=== PATIENT | male | born 1950 ===

== ENCOUNTER 2017-11-25 13:17 | Day surgery (SDC) | payer MEDICARE ==
[2017-11-25] MEDS ORDERED: Sodium Chloride 0.9% 1,000 ML ONE ×3 (13:43→15:25)
[2017-11-25] MEDS ORDERED: Sodium Chloride 0.9% 1,000 ML IV ONE ×5 (13:59→16:10)
[2017-11-25 14:00] LABS: BASO # 0.1 K/uL (0.0-0.2); BASO % 0.5 % (0.0-2.0); HEMOGLOBIN 13.8 g/dL (12.0-18.0); LYMPH # 0.7 K/uL (1.0-4.3); LYMPH % 4.9 % (20.0-40.0); MEAN CORPUSCULAR HGB CONC 33.3 g/dL (33.0-37.0); MONO % 7.4 % (0.0-10.0); NEUT # 11.9 K/uL (1.8-7.0); NEUT % 87.2 % (50.0-75.0); PLATELET COUNT 174 K/uL (130-400); RBC 4.76 Mil/uL (4.40-5.90); RED CELL DISTRIBUTION WIDTH 13.6 % (11.5-14.5); WHITE BLOOD COUNT 13.6 K/uL (4.8-10.8)
[2017-11-25 14:09] LABS: VENOUS BLOOD GAS PCO2 48 mmHg (40-60); VENOUS BLOOD GAS PO2 23 mm/Hg (30-55); VENOUS BLOOD PH 7.36 (7.32-7.43)
[2017-11-25 14:32] LABS: LYMPHOCYTE 5 % (20-40); MONOCYTE 6 % (0-10); NEUTROPHIL 89 % (50-75); PLATELET ESTIMATE NORMAL (NORMAL); TOTAL CELLS COUNTED 100
[2017-11-25 14:33] LABS: ANISOCYTOSIS SLIGHT; TOXIC GRANULATION PRESENT
--- NOTE | 2017-11-25 14:36 | C.PDOC ---
History Of Present Illness 66 year old male presents to ED complaining of feeling very weak since last night. Patient reports he feels his sugar is high and states he has not seen a doctor in many years. Patient also states he occasionally takes his friends diabetic medication. When inquiring how he knows he is a diabetic the patient answers by saying he urinates a lot. Denies any pain, falling. Chief Complaint (Nursing): Medical Clearance History Per: Patient History/Exam Limitations: no limitations Onset/Duration Of Symptoms: Days Current Symptoms Are (Timing): Still Present Recent travel outside of the [place] States: No Past Medical History Reviewed: Historical Data, Nursing Documentation, Vital Signs Vital Signs: Last Vital Signs Temp 97.6 F 11/25/17 16:12 Pulse 52 L 11/25/17 16:12 Resp 27 H 11/25/17 15:07 BP 92/50 L 11/25/17 16:12 Pulse Ox 96 11/25/17 18:32 Surgical History: No Surg Hx Family History: States: No Known Family Hx - Social History Hx Alcohol Use: No Hx Substance Use: No - Immunization History Hx Tetanus Toxoid Vaccination: No Hx Influenza Vaccination: No Hx Pneumococcal Vaccination: No Review Of Systems Except As Marked, All Systems Reviewed And Found Negative. Constitutional: Positive for: Weakness, Other (feels his sugar is high) Eyes: Negative for: Pain Cardiovascular: Negative for: Chest Pain Respiratory: Negative for: Cough Gastrointestinal: Negative for: Abdominal Pain Musculoskeletal: Negative for: Neck Pain, Arm Pain Neurological: Negative for: Numbness Physical Exam - Physical Exam Appears: Non-toxic, No Acute Distress Skin: Warm, Dry Head: Atraumatic, Normacephalic Eye(s): bilateral: Normal Inspection, PERRL, EOMI Oral Mucosa: Dry Neck: Supple Chest: Symmetrical Cardiovascular: Rhythm Regular, Other (mitral regurgitation) Respiratory: Normal Breath Sounds Gastrointestinal/Abdominal: Normal Exam, Soft, No Tenderness Extremity: Normal ROM Neurological/Psych: Oriented x3 ED Course And Treatment - Laboratory Results Result Diagrams: 11/25/17 13:54 11/25/17 13:54 ECG: Interpreted By Me, Viewed By Me ECG Rhythm: Sinus Bradycardia (54), ST/T Changes (23/80. ) Interpretation Of ECG: EKG sinus bradycardia 54 BPM, first degree AB block st elevation 23/80. Hyperacute T waves in v2 v3 v4. Rate From EC (bpm) O2 Sat by Pulse Oximetry: 96 (RA) Pulse Ox Interpretation: Normal Progress Note: EKG done 14:07. Dr. Dumont called immediatly with EKG sent to him. Dr. Dumont states it is not a code heart pending stat echo and troponin. Troponin came back at 36. Echo not available. Dr. Dumont noted requires heparin bolus and infusion with laboratory animal care veterinarian team notification. Dr. Mccollum notified for admission and hospitalist program director notified about case. Critical care time 90 minutes. Medical Decision Making Medical Decision Making: Impression: Weakness Plan: * EKG * labs * Echo Disposition - Disposition Disposition: HOSPITALIZED Disposition Time: 14:07 Condition: CRITICAL - Clinical Impression Clinical Impression: NSTEMI (non-ST elevated myocardial infarction), Hypotension, Renal failure, Hyperglycemia - Scribe Statement The provider has reviewed the documentation as recorded by the Flaco Arnolded Provider Attestation: All medical record entries made by the Flaco were at my direction and personally dictated by me. I have reviewed the chart and agree that the record accurately reflects my personal performance of the history, physical exam, medical decision making, and the department course for this patient. I have also personally directed, reviewed, and agree with the discharge instructions and disposition.
[2017-11-25 14:43] LABS: INR 1.2; PROTHROMBIN TIME 13.1 SECONDS (9.7-12.2)
--- NOTE | 2017-11-25 15:00 | RAD ---
Chest x-ray single frontal view History: Infiltrate. Comparison: None available. Findings: Biapical pleural thickening with upper lobe granulomatous changes. Mild venous congestion. Right hilar and infrahilar consolidative changes. Top normal heart size. Degenerative changes in the spine and shoulders. Impression: Biapical pleural thickening with upper lobe granulomatous changes. Mild venous congestion. Right hilar and infrahilar consolidative changes.
[2017-11-25 15:07] VITALS: RESP 27
[2017-11-25] MEDS ORDERED: Azithromycin 500 MG in Sodium Chloride 0.9% 250 ML IVPB STA (15:09)
[2017-11-25 15:13] LABS: ALB/GLOB RATIO 1.5 (1.0-2.1); CALCIUM 9.4 mg/dl (8.6-10.4)
[2017-11-25] MEDS ORDERED: (Novolin R) Insulin Human Regular 100 units/ml vial IV STA (15:14)
[2017-11-25 15:19] LABS: TROPONIN I 36.4 ng/mL (0.00-0.120)
[2017-11-25] MEDS ORDERED: (Novolin R) Insulin Human Regular 100 units/ml vial ONE (15:23)
[2017-11-25] MEDS ORDERED: Heparin25000 units/250ml 1/2NS 25,000 UNITS/250 ML BAG IV STA (15:46)
[2017-11-25 16:13] VITALS: BP 92/50; PULSE 52; TEMP 97.6
[2017-11-25] MEDS ORDERED: Lidocaine 2% MPF (5 ml) Inj ONE ×2 (16:13→17:26)
[2017-11-25 16:21] LABS: SQUAMOUS EPITHIAL 1 /hpf (0-5); URINE BACTERIA OCC (<OCC); URINE BILIRUBIN NEGATIVE (NEGATIVE); URINE BLOOD NEGATIVE (NEGATIVE); URINE CLARITY Hazy (Clear); URINE COLOR Amber (YELLOW); URINE GLUCOSE (UA) 3+ mg/dL (Normal); URINE LEUKOCYTE ESTERASE NEG Leu/uL (Negative); URINE PROTEIN 2+ mg/dL (NEGATIVE)
--- NOTE | 2017-11-25 16:40 | CP.PCM.PN ---
<Leah Doe DO - Last Filed: 11/25/17 16:29> Subjective - Date & Time of Evaluation Date of Evaluation: 11/25/17 Time of Evaluation: 16:29 - Subjective Subjective: House Doctor Code Heart Note: Patient is a 66 year old male with PMHx of hyperglycemia who presents to the ED with complaints of nausea and feeling unwell. Patient reports these symptoms started yesterday evening. Patient denies chest pain currently or yesterday evening. Patient reports feeling that his hands and legs were weak. Code heart was called with ST elevations in II, III, AVF in the ED and cath team activated. Patient with troponin 36, WBC 13, lactate 2.9, creatinine 2.3. Patient given aspirin 325mg, 3 L IV fluid bolus, heparin bolus and drip started. Chest xray done in ER shows possible right hilar consolidation and patient given ceftriaxone and zithromax. Cardiac exam with possible friction rub and extra heart sound. Heart rate in 50s in ER. 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; denies tobacco ever, denies alcohol; lives alone- rents room in apartment; family lives in [place] but he does not speak with them, has friend/girlfriend Rosi- does not have phone number for her Allergies: denies Objective - Vital Signs/Intake and Output Vital Signs (last 24 hours): Temp Pulse Resp BP Pulse Ox 97.6 F 52 L 27 H 92/50 L 99 11/25/17 16:12 11/25/17 16:12 11/25/17 15:07 11/25/17 16:12 11/25/17 16:12 - Medications Medications: Current Medications Ceftriaxone Sodium 1 gm/ (Sodium Chloride) 100 mls @ 100 mls/hr IVPB DAILY RIKI PRN Reason: Protocol Last Admin: 11/25/17 14:49 Dose: 100 mls/hr Sodium Chloride (Sodium Chloride 0.9%) 1,000 mls @ 250 mls/hr IV .Q4H ONE Stop: 11/25/17 19:19 Last Admin: 11/25/17 15:25 Dose: 250 mls/hr Sodium Chloride (Sodium Chloride 0.9%) 1,000 mls @ 1,000 mls/hr IV .Q1H ONE Stop: 11/25/17 17:09 Last Admin: 11/25/17 16:10 Dose: 1,000 mls/hr - Labs Labs: 11/25/17 13:54 11/25/17 13:54 PT 13.1 SECONDS (9.7-12.2) H 11/25/17 14:28 INR 1.2 11/25/17 14:28 APTT 31 SECONDS (21-34) 11/25/17 14:28 <Seda Espinoza V - Last Filed: 11/25/17 18:00> Objective - Vital Signs/Intake and Output Vital Signs (last 24 hours): Temp Pulse Resp BP Pulse Ox 97.6 F 52 L 27 H 92/50 L 99 11/25/17 16:12 11/25/17 16:12 11/25/17 15:07 11/25/17 16:12 11/25/17 16:12 - Medications Medications: Current Medications Ceftriaxone Sodium 1 gm/ (Sodium Chloride) 100 mls @ 100 mls/hr IVPB DAILY RIKI PRN Reason: Protocol Last Admin: 11/25/17 14:49 Dose: 100 mls/hr Sodium Chloride (Sodium Chloride 0.9%) 1,000 mls @ 250 mls/hr IV .Q4H ONE Stop: 11/25/17 19:19 Last Admin: 11/25/17 15:25 Dose: 250 mls/hr - Labs Labs: 11/25/17 13:54 11/25/17 13:54 PT 13.1 SECONDS (9.7-12.2) H 11/25/17 14:28 INR 1.2 11/25/17 14:28 APTT 31 SECONDS (21-34) 11/25/17 14:28 Attending/Attestation - Attestation Notes (Text): Hospitalist responded to code heart as part of the code heart team. Patient reports he hasnt been feeling well. He reports he has "diabetes" because of a doctor in [place] had told him in the distant past. He reports he has been borrowing medications from a friend. Patient also admits to cocaine use, snorts, 3 days ago. Patient noted to be hypotensive, has been given 3 Liters boluses, about to receive fourth bolus. Patient has received dose of aspirin, heparin, and brilinta per code heart protocol. Patient reports family hx of heart attack father age 53. patient reports family in [place] but cant recall phone number and reports he has lady friend, Timderrell who he implies has romantic relationshop with.
[2017-11-25] MEDS ORDERED: Nitroglycerin 50mg in D5W 50 MG/250 ML BOTTLE IV ONE (17:06)
[2017-11-25] MEDS ORDERED: Iodixanol 320 MG/ML 200 ML BOTTLE IV ONE (17:12)
[2017-11-25 17:25] LABS: ARTERIAL BLOOD GAS HCO3 20.9 mmol/L (21-28); ARTERIAL BLOOD GAS HEMOGLOBIN 11.7 g/dL (11.7-17.4); ARTERIAL BLOOD GAS O2 SAT 96.5 % (95-98); ARTERIAL BLOOD GAS PCO2 35 mm/Hg (35-45); ARTERIAL BLOOD GAS PH 7.36 (7.35-7.45); ARTERIAL BLOOD GAS PO2 73 mm/Hg (80-100); ARTERIAL BLOOD GAS TCO2 20.9 mmol/L (22-28)
[2017-11-25] MEDS ORDERED: Midazolam 2 MG/2 ML VIAL ONE ×2 (17:27→17:32)
[2017-11-25 17:29] LABS: VENOUS BLOOD GAS BASE EXCESS -5.5 mmol/L (0.0-2.0); VENOUS BLOOD GAS PCO2 42 mmHg (40-60); VENOUS BLOOD GAS PO2 29 mm/Hg (30-55)
[2017-11-25] MEDS ORDERED: DOBUTamine 500mg/250ml D5W 500 MG/250 ML BAG ONE (18:13)
[2017-11-25 18:25] VITALS: O2SAT 96
--- NOTE | 2017-11-27 05:56 | CARDCATH ---
Copied To: Ector Dumont MD Attending MD: Ector Dumont MD PROCEDURE DATE: 11/25/2017 INDICATION: Mr. Keen is a 66-year-old male with past medical history significant for diabetes mellitus that was treated with medications borrowed from his friend, not followed by the primary care physician and history of intermittent cocaine use who presented with not feeling himself. Symptoms started a day prior to presentation. Initial EKG showed inferior wall had Q-waves with ST changes suggestive of recent inferior wall WV. Since the patient presented 24 hours after his presentation, he was not emergently brought to the [facility] sinking until he started to decompensate and showed signs of early shock since his systolic was running in the 80s, and there were some hyperacute T-wave changes noted in the anterior leads. Therefore, he was brought to the [facility] sinking for further evaluation and treatment for acute WV and cardiogenic shock. PROCEDURES PERFORMED: 1. Complete heart cauterization with selective left and right coronary angiogram, attempted revascularization of old occluded right coronary artery with unsuccessful attempt, unable to restore the flow. 2. Successful placement of Impella CP device for hemodynamic support, 6-Albanian right femoral arterial access, 7-Albanian right femoral venous access, 13-Albanian right femoral arterial access with one Perclose device. TECHNIQUES OF PROCEDURE: After obtaining informed consent, the patient was brought emergently to the lab[facility] shaft sinking for evaluation of cardiogenic shock. Initially, the 6-Albanian right femoral arterial access and 7-Albanian right femoral venous access were obtained. LV gram was obtained which showed ejection fraction was 30% with inferior wall akinesis and severe hypokinesis and anteroapical akinesis. Left ventricular end-diastolic pressure was 17 mmHg. At this point, left coronary artery system angiogram was obtained which showed the left main was large-sized vessels bifurcating to LAD and circumflex. LAD had a proximal 99% high-grade stenosis extending into the first diagonal branch. Left circumflex is a large-sized vessel, runs in the AV groove, has proximal 80% stenosis bifurcating into two obtuse marginal branches. The patient had good distal site at the LAD for COREAS and good target site at the OM. Right coronary artery was proximal 100% occluded. At this point, a JR-4 guide was used to engage the right coronary system. Attempt was made to revascularize. The lesion was pre-dilated with a balloon. There was some flow noted. At this point, the lesion was stented, but there was very poor PIERRE 1 flow suggesting that the inferior wall was already infarcted completely. At this point, the right heart cath was done. Hemodynamics were noted. RA mean pressure was 22. PA sats were 54. Pulmonary capillary wedge pressure was 24. Cardiac output was 1.99 with a cardiac index of 1.15. Cardiac power output was less than 0.7. Darron was 1.2. At this point, left femoral arterial access was obtained. Femoral angiogram was done to secure access site. The access was dilated serially with 8-Albanian, 10-Albanian and 12-Albanian dilators and subsequently Impella sheath was placed. Impella was successfully implanted in the LV for hemodynamic support. IMPRESSION: Attempted revascularization of an occluded right coronary artery with more than 24-hour onset of myocardial infraction, unable to recanalize the flow with poor PIERRE 1 flow, high-grade left anterior descending and left circumflex disease, cardiogenic shock with low cardiac output and elevated running pressure, and successful placement of Impella. RECOMMENDATIONS: The patient is to transfer emergently to [place] for urgent/emergent CABG with COREAS to LAD and graft to the OM system. The patient is to continue on Impella system. Continue hemodynamics and maintain pressures. Ector Dumont MD
--- NOTE | 2017-11-27 23:48 | CARD ---
APPROVED REPORT Date of service: 11/25/2017 EKG Measurement Heart [id number] <Conclusion> Sinus bradycardia with 1st degree AV block Inferior infarct, possibly acute Anterolateral injury pattern ACUTE AZ / STEMI Abnormal ECG
== END 2017-11-25 16:18 | disposition short-term general hospital (02) ==
LOC: C.ER 13:17 → C.CATHLAB 13:17 → EDSTATUS 15:09 → C.9I 16:18 → C.ER 16:18 → C.9I 16:41 → UNDOADMIN 16:41 → UNDODISIN 11-26 01:00
PROVIDERS: ATTEND Internal Medicine Interventional Cardiology
DX: I21.3 ST elevation (STEMI) myocardial infarction of unspecified site (principal); R57.0 Cardiogenic shock; I25.10 Atherosclerotic heart disease of native coronary artery without angina pectoris; E11.65 Type 2 diabetes mellitus with hyperglycemia; E11.22 Type 2 diabetes mellitus with diabetic chronic kidney disease; I95.9 Hypotension, unspecified; F14.90 Cocaine use, unspecified, uncomplicated
CPT/HCPCS: 71045; 80053; 81001; 82009; 82803; 82948; 83880; 84484; 85025; 85347; 85610; 85730; 86850; 86900; 87040; 87086; 87149; 87205; 93005; 93453; 96361; 96365; 96367; 96375; 99152; 99153; 99285; C1714; C1725; C1760; C1769; C1789; C1874; C1887; C1893; C1894; C9606; J0456; J0696; J1250; J1644; J2250; J2405; J3010; J7030; J7050; Q9966

== ENCOUNTER 2018-01-05 19:42 | Inpatient (IN) | payer MEDICAID ==
--- NOTE | 2018-01-05 20:01 | C.PDOC ---
History Of Present Illness patient presents with 2-3 days of shortness of breath. Pt is s/p cabg about 10 days ago. No f/c/n/v. Denies any chest pain. Is unsure of any medication that he takes. Speaking in 3-4 word sentences. Time Seen by Provider: 01/05/18 19:55 Chief Complaint (Nursing): Respiratory Distress History Per: Patient History/Exam Limitations: no limitations Onset/Duration Of Symptoms: Days Current Symptoms Are (Timing): Still Present Initiating Event: Other Quality: denies: Tightness Exacerbating Factor(s): Exertion, Laying Flat Current Respiratory Medications: See Home Med List Severity: Severe Pain Scale Rating Of: 8 Associated Symptoms: denies: Fever, Chills, Dizziness Reports Recently: Seen In ED, Treated By A Physician, Hospitalized Recent travel outside of the [place]: No Additional History Per: Patient Past Medical History Reviewed: Historical Data, Nursing Documentation, Vital Signs Family History: States: No Known Family Hx - Social History Hx Alcohol Use: No Hx Substance Use: No - Immunization History Hx Tetanus Toxoid Vaccination: No Hx Influenza Vaccination: No Hx Pneumococcal Vaccination: No Review Of Systems Constitutional: Negative for: Fever, Chills Eyes: Negative for: Redness ENT: Negative for: Throat Pain Cardiovascular: Negative for: Chest Pain Respiratory: Positive for: Shortness of Breath, SOB with Excertion, Wheezing (mild) Gastrointestinal: Negative for: Nausea, Vomiting, Abdominal Pain Genitourinary: Negative for: Dysuria Musculoskeletal: Negative for: Back Pain Skin: Positive for: Lesions (r leg) Neurological: Negative for: Weakness Psych: Negative for: Anxiety Physical Exam - Physical Exam Appears: In Acute Distress Skin: Warm, Dry Head: Normacephalic Eye(s): bilateral: Normal Inspection Oral Mucosa: Moist Lips: Normal Appearing Neck: Trachea Midline, Supple Chest: Symmetrical, Other (healed cabg scar) Cardiovascular: Rhythm Regular Respiratory: Decreased Breath Sounds, Rales, No Rhonchi, Wheezing (few) Gastrointestinal/Abdominal: Soft, No Tenderness, No Distention, No Guarding, No Rebound Back: No CVA Tenderness Extremity: Pedal Edema, No Deformity, Other (4 cm open healing wound from vein graft, also some redness on the medial aspect r leg from the vein ) Extremity: Bilateral: Atraumatic, Normal ROM Pulses: Left Dorsalis Pedis: Normal, Right Dorsalis Pedis: Normal Neurological/Psych: Oriented x3, Normal Speech, Normal Cognition Gait: Steady ED Course And Treatment - Laboratory Results Result Diagrams: 01/05/18 20:09 01/05/18 20:09 ECG: Interpreted By Me, Viewed By Me ECG Rhythm: Sinus Bradycardia (46), Nonspecific Changes Pulse Ox Interpretation: Normal - Radiology CXR: Interpreted by Me, Viewed By Me CXR Interpretation: Yes: Other (cabg, acute pulm edema, b/l effuions). No: I nfiltrates, Fracture, Pnemothorax Progress Note: placed pt on bipap. spoke with dr clements. pt does not meet code heart criteria. 8:[address] billings, vamp throater, will come and see the pt in the ed Critical Care Time - Critical Care Note Total Time (in mins): 30 Documented critical care: time excludes all time spent performing seperately billable procedures. Disposition Discussed With Dr.: Kelechi Moore Comment: acceptd the pt on his service and took over the care t 9:03 PM Doctor Will See Patient In The: ED Counseled Patient/Family Regarding: Studies Performed, Diagnosis - Disposition Disposition: HOSPITALIZED Disposition Time: 20:01 Condition: CRITICAL Forms: [facility] ([place] Island[place]) - POA Present On Arrival: Poor Glycemic Control - Clinical Impression Clinical Impression: NSTEMI (non-ST elevated myocardial infarction), Hypotension, Acute pulmonary edema Decision To Admit - Pt Status Changed To: Hospital Disposition Of: Inpatient - Admit Certification Admit to Inpatient:: After my assessment, the patient will require hospitalization for at least two midnights. This is because of the severity of symptoms shown, intensity of services needed, and/or the medical risk in this patient being treated as an outpatient. - InPatient: Physician Admission Certification: I certify that this patient requires 2 or more midnights of care for the following reason:: After my assessment, the patient will require hospitalization for at least two midnights. This is because of the severity of symptoms shown, intensity of services needed, and/or the medical risk in this patient being treated as an outpatient. - . Bed Request Type: ICU Admitting Physician: Kelechi Moore Patient Diagnosis: NSTEMI (non-ST elevated myocardial infarction), Hypotension, Acute pulmonary edema
[2018-01-05] MEDS ORDERED: Aspirin 325 mg EC Tablets PO STA (20:02)
[2018-01-05 20:03] VITALS: BMI 25.4
[2018-01-05 20:15] LABS: BASO # 0.1 K/uL (0.0-0.2); BASO % 0.5 % (0.0-2.0); EOS % 0.2 % (0.0-4.0); HEMOGLOBIN 12.4 g/dL (12.0-18.0); LYMPH # 0.9 K/uL (1.0-4.3); LYMPH % 6.6 % (20.0-40.0); MEAN CORPUSCULAR HEMOGLOBIN 28.7 pg (27.0-31.0); MEAN PLATELET VOLUME 8.8 fL (7.2-11.7); MONO # 0.7 K/uL (0.0-0.8); MONO % 5.3 % (0.0-10.0); NEUT % 87.4 % (50.0-75.0); NRBC % 0.1 % (0.0-2.0); RBC 4.34 Mil/uL (4.40-5.90); RED CELL DISTRIBUTION WIDTH 17.7 % (11.5-14.5); WHITE BLOOD COUNT 13.7 K/uL (4.8-10.8)
[2018-01-05 20:20] LABS: MEAN CELL VOLUME 92.6 fL (80.0-94.0); PLATELET COUNT 590 K/uL (130-400)
[2018-01-05 20:24] LABS: INR 1.5
[2018-01-05 20:37] LABS: ALB/GLOB RATIO 1.1 (1.0-2.1); ALBUMIN 4.3 g/dL (3.5-5.0); CALCIUM 9.2 mg/dl (8.6-10.4)
[2018-01-05 20:46] LABS: ABG ALLEN TEST POS; ARTERIAL BLOOD GAS HCO3 16.8 mmol/L (21-28); ARTERIAL BLOOD GAS O2 SAT 98.9 % (95-98); ARTERIAL BLOOD GAS PCO2 26 mm/Hg (35-45); ARTERIAL BLOOD GAS PH 7.33 (7.35-7.45); ARTERIAL BLOOD GAS PO2 123 mm/Hg (80-100); ARTERIAL BLOOD GAS TCO2 14.5 mmol/L (22-28)
[2018-01-05 20:47] LABS: TROPONIN I 3.95 ng/mL (0.00-0.120)
[2018-01-05] MEDS ORDERED: Piperacillin/Tazobact 3.375 gm 100 ML IVPB STA (20:49)
[2018-01-05] MEDS ORDERED: Piperacillin/Tazobact 3.375 gm 100 ML IVPB ONE (20:54)
[2018-01-05] MEDS ORDERED: Vancomycin 1 GM 1 GM/250 ML BAG IVPB SCH (21:00)
[2018-01-05 21:18] LABS: BANDS 1 % (0-2); LYMPHOCYTE 8 % (20-40); MONOCYTE 4 % (0-10); NEUTROPHIL 87 % (50-75); TOTAL CELLS COUNTED 100
[2018-01-05 21:19] LABS: ANISOCYTOSIS SLIGHT; PLATELET ESTIMATE INCREASED (NORMAL)
[2018-01-05 21:20] LABS: BURR CELLS SLIGHT; HYPOCHROMIC SLIGHT; POLYCHROMIC SLIGHT
--- NOTE | 2018-01-05 21:50 | CP.PCM.CON ---
History of Present Illness - History of Present Illness History of Present Illness: 67 y/o male with pmx of CAD s/p CABG, DM, was recently admitted to [facility] with NSTEMI s/p CABG at [facility]. Patient notes he remained intubated for 3 days and then was discharged. Patient does not know his surgeon. Patient does not know his medication. PAtient c/ SOB, (+)worsen upon exertion, denies any fevers, deneis any cough (+)dizziness PMHx:DM, CAD, polysubstance abuse FamHx:paternal h/o cad PSHx: denies Meds: does not remember Social history: denies smoking, (+)cocain Allergies: denies Review of Systems - Review of Systems All systems: reviewed and no additional remarkable complaints except - Constitutional Constitutional: As Per HPI Past Patient History - Tetanus Immunizations Tetanus Immunization: Unknown - Past Social History Smoking Status: Never Smoked - CARDIAC Hx Cardiac Disorders: Yes Other/Comment: open heart 12/2017 - PULMONARY Hx Respiratory Disorders: No - ENDOCRINE/METABOLIC Hx Diabetes Mellitus Type 2: Yes - PSYCHIATRIC Hx Substance Use: No - SURGICAL HISTORY Hx Surgeries: No - ANESTHESIA Hx Anesthesia: No Meds Allergies/Adverse Reactions: Allergies Allergy/AdvReac Type Severity Reaction Status Date / Time No Known Allergies Allergy Verified 01/05/18 20:19 - Medications Medications: Current Medications Vancomycin HCl (Vancomycin 1gm In Normal Saline Addvantage) 1 gm in 250 mls @ 166.667 mls/hr IVPB STAT RIKI; Protocol Physical Exam - Head Exam Head Exam: ATRAUMATIC, NORMAL INSPECTION, NORMOCEPHALIC - Eye Exam Pupil Exam: PERRL - Respiratory Exam Respiratory Exam: Clear to Auscultation Bilateral, NORMAL BREATHING PATTERN - Cardiovascular Exam Cardiovascular Exam: REGULAR RHYTHM, +S1, +S2, Systolic Murmur - GI/Abdominal Exam GI & Abdominal Exam: Normal Bowel Sounds, Soft. absent: Guarding, Rigid, Tenderness - Neurological Exam Neurological exam: Alert, Oriented x3 Results - Vital Signs Recent Vital Signs: Last Vital Signs Temp 98.6 F 01/05/18 19:56 Pulse 45 L 01/05/18 20:10 Resp 30 H 01/05/18 20:18 BP 123/49 L 01/05/18 19:56 Pulse Ox 96 01/05/18 20:18 - Labs Result Diagrams: 01/06/18 07:20 01/06/18 14:25 Labs: Laboratory Results - last 24 hr 01/05/18 01/05/18 01/05/18 20:09 20:09 20:09 WBC 13.7 H RBC 4.34 L Hgb 12.4 Hct 40.1 MCV 92.6 D MCH 28.7 MCHC 31.0 L RDW 17.7 H Plt Count 590 H D MPV 8.8 Neut % (Auto) 87.4 H Lymph % (Auto) 6.6 L [place] % (Auto) 5.3 Eos % (Auto) 0.2 Baso % (Auto) 0.5 Neut # (Auto) 12.0 H Lymph # (Auto) 0.9 L [place] # (Auto) 0.7 Eos # (Auto) 0.0 Baso # (Auto) 0.1 Neutrophils % (Manual) 87 H Band Neutrophils % 1 Lymphocytes % (Manual) 8 L Monocytes % (Manual) 4 Platelet Estimate Increased H Polychromasia Slight Hypochromasia (manual) Slight Anisocytosis (manual) Slight Shahrzad Cells Slight PT 16.0 H INR 1.5 APTT 31 Puncture Site pCO2 pO2 HCO3 ABG pH ABG Total CO2 ABG O2 Saturation ABG Base Excess Kade Test ABG Potassium A-a O2 Difference Respiratory Index Glucose Lactate FiO2 Inspiratory BiPAP Expiratory BiPAP Crit Value Called To Crit Value Called By Crit Value Read Back Blood Gas Notified Time Sodium 143 Potassium 5.5 H Chloride 104 Carbon Dioxide 15 L Anion Gap 30 H BUN 46 H Creatinine 1.9 H Est GFR ( Amer) 43 Est GFR (Non-Af Amer) 36 Random Glucose 156 H Calcium 9.2 Magnesium 1.9 Total Bilirubin 3.0 H AST 469 H D ALT 388 H D Alkaline Phosphatase 534 H D Troponin I 3.9500 H* NT-Pro-B Natriuret Pep 8390 H Total Protein 8.3 Albumin 4.3 Globulin 4.0 H Albumin/Globulin Ratio 1.1 Arterial Blood Potassium B-Hydroxybutyrate 0.24 01/05/18 20:40 WBC RBC Hgb Hct MCV MCH MCHC RDW Plt Count MPV Neut % (Auto) Lymph % (Auto) [place] % (Auto) Eos % (Auto) Baso % (Auto) Neut # (Auto) Lymph # (Auto) Seward # (Auto) Eos # (Auto) Baso # (Auto) Neutrophils % (Manual) Band Neutrophils % Lymphocytes % (Manual) Monocytes % (Manual) Platelet Estimate Polychromasia Hypochromasia (manual) Anisocytosis (manual) Shahrzad Cells PT INR APTT Puncture Site Lba pCO2 26 L pO2 123 H HCO3 16.8 L ABG pH 7.33 L ABG Total CO2 14.5 L ABG O2 Saturation 98.9 H ABG Base Excess -10.5 L Kade Test Pos ABG Potassium 4.1 A-a O2 Difference 130.0 Respiratory Index 1.1 Glucose 161 H Lactate 5.0 H* FiO2 40.0 Inspiratory BiPAP 18 Expiratory BiPAP 9 Crit Value Called To Dr anderson Crit Value Called By [facility] Crit Value Read Back Y Blood Gas Notified Time 2045 Sodium 139.0 Potassium Chloride 110.0 H Carbon Dioxide Anion Gap BUN Creatinine Est GFR ( Amer) Est GFR (Non-Af Amer) Random Glucose Calcium Magnesium Total Bilirubin AST ALT Alkaline Phosphatase Troponin I NT-Pro-B Natriuret Pep Total Protein Albumin Globulin Albumin/Globulin Ratio Arterial Blood Potassium 4.1 B-Hydroxybutyrate - EKG Data Rate: Bradycardia Assessment & Plan - Assessment and Plan (Free Text) Assessment: -DYspnea: etiology possible heart failure versus underlying infectious disease and/or polysubstance abuse, check CT chest, check procalcitnin, continue bi-pap -CAD: restart his heart medications -Trop(+): usually positive post on-pump CABG, please check EKG and echo for any new mall motion abnormality, cardiology input -?sepsis: leukocytosis possible post CABG, mirza culture, empiricaly on abx, check RUQ US -Severe systolic heart failure: obtain heart failure consult/cardiology consult Dr. Dumont, not a candidate for ACI 2nd heart failue -CKD:avoid nephrotoxic drugs, avoid acei, nephrology eval -Metabolic acidosis with partially compensated respratory alkalkosi: anion gap shoudl resolve with serial lactic trending down -npo -BGM q6hrs ISS -DVT ppx heparin SQ -PUD ppx protonix Mutlitple diagnostic test pending Prognosis guarded, Utox pending - Date & Time Date: 01/06/18 Time: 07:00
[2018-01-05] MEDS ORDERED: Vancomycin 1 GM 1 GM/250 ML BAG IVPB STA (22:14)
--- NOTE | 2018-01-06 03:24 | CP.PCM.HP ---
<Lynnette Pop - Last Filed: 01/06/18 04:57> History of Present Illness - History of Present Illness History of Present Illness: 67 yo M w/ PMHx of CAD w/ NSTEMI here 11/25 and s/p CABG @ [facility] within last month, DM2, admitted to ICU w/ 3 days of SOB. Patient does not remember which medications he takes, but says he is compliant. Pt denies chest pain, nausea, vomiting, diarrhea. PMD: none PMHx: CAD s/p CABG, DM2 PSHx: CABG Allergies: NKDA Meds: unknown Present on Admission - Present on Admission Any Indicators Present on Admission: No Review of Systems - Constitutional Constitutional: absent: Fever - EENT Eyes: absent: Change in Vision - Cardiovascular Cardiovascular: Dyspnea. absent: Chest Pain, Claudication, Palpitations - Respiratory Respiratory: Dyspnea. absent: Cough, Chest Congestion - Gastrointestinal Gastrointestinal: absent: Abdominal Pain, Diarrhea, Nausea, Vomiting - Genitourinary Genitourinary: absent: Difficulty Urinating Past Patient History - Tetanus Immunizations Tetanus Immunization: Unknown - Past Medical History & Family History Past Medical History?: Yes - Past Social History Smoking Status: Never Smoked - CARDIAC Hx Cardiac Disorders: Yes Other/Comment: open heart 12/2017 - PULMONARY Hx Respiratory Disorders: No - NEUROLOGICAL Hx Neurological Disorder: No - HEENT Hx HEENT Problems: No - RENAL Hx Chronic Kidney Disease: No - ENDOCRINE/METABOLIC Hx Endocrine Disorders: Yes Hx Diabetes Mellitus Type 2: Yes - HEMATOLOGICAL/ONCOLOGICAL Hx Blood Disorders: No - INTEGUMENTARY Hx Dermatological Problems: No - MUSCULOSKELETAL/RHEUMATOLOGICAL Hx Musculoskeletal Disorders: No - GASTROINTESTINAL Hx Gastrointestinal Disorders: No - GENITOURINARY/GYNECOLOGICAL Hx Genitourinary Disorders: No - PSYCHIATRIC Hx Psychophysiologic Disorder: No - SURGICAL HISTORY Hx Surgeries: Yes Hx Coronary Artery Bypass Graft: Yes - ANESTHESIA Hx Anesthesia: Yes Hx Anesthesia Reactions: No Hx Malignant Hyperthermia: No Has any member of the family had a problem w/ anesthesia?: No Meds Allergies/Adverse Reactions: Allergies Allergy/AdvReac Type Severity Reaction Status Date / Time No Known Allergies Allergy Verified 01/05/18 20:19 Physical Exam - Constitutional Appears: Non-toxic - Head Exam Head Exam: ATRAUMATIC, NORMAL INSPECTION, NORMOCEPHALIC - Eye Exam Eye Exam: EOMI, Normal appearance - ENT Exam ENT Exam: Normal Exam - Neck Exam Neck exam: Positive for: Normal Inspection - Respiratory Exam Respiratory Exam: Rales. absent: NORMAL BREATHING PATTERN (tachypneic) - Cardiovascular Exam Cardiovascular Exam: Bradycardia, REGULAR RHYTHM, +S1, +S2 - GI/Abdominal Exam GI & Abdominal Exam: Normal Bowel Sounds, Soft. absent: Distended, Tenderness - Extremities Exam Extremities exam: Positive for: pedal edema. Negative for: calf tenderness, normal inspection (RLE erythematous, warm to touch, popliteal lesion) - Psychiatric Exam Psychiatric exam: Normal Affect, Normal Mood - Skin Skin Exam: Dry, Intact, Normal Color, Warm Results - Vital Signs Recent Vital Signs: Last Vital Signs Temp 98.8 F 01/05/18 22:38 Pulse 43 L 01/05/18 23:40 Resp 22 01/05/18 22:38 BP 94/45 L 01/05/18 22:38 Pulse Ox 98 01/05/18 22:38 - Labs Result Diagrams: 01/05/18 20:09 01/05/18 20:09 Labs: Laboratory Results - last 24 hr 01/05/18 01/05/18 01/05/18 20:09 20:09 20:09 WBC 13.7 H RBC 4.34 L Hgb 12.4 Hct 40.1 MCV 92.6 D MCH 28.7 MCHC 31.0 L RDW 17.7 H Plt Count 590 H D MPV 8.8 Neut % (Auto) 87.4 H Lymph % (Auto) 6.6 L Nicholas % (Auto) 5.3 Eos % (Auto) 0.2 Baso % (Auto) 0.5 Neut # (Auto) 12.0 H Lymph # (Auto) 0.9 L Nicholas # (Auto) 0.7 Eos # (Auto) 0.0 Baso # (Auto) 0.1 Neutrophils % (Manual) 87 H Band Neutrophils % 1 Lymphocytes % (Manual) 8 L Monocytes % (Manual) 4 Platelet Estimate Increased H Polychromasia Slight Hypochromasia (manual) Slight Anisocytosis (manual) Slight Rueter Cells Slight PT 16.0 H INR 1.5 APTT 31 Puncture Site pCO2 pO2 HCO3 ABG pH ABG Total CO2 ABG O2 Saturation ABG Base Excess Kade Test ABG Potassium A-a O2 Difference Respiratory Index Glucose Lactate FiO2 Inspiratory BiPAP Expiratory BiPAP Crit Value Called To Crit Value Called By Crit Value Read Back Blood Gas Notified Time Sodium 143 Potassium 5.5 H Chloride 104 Carbon Dioxide 15 L Anion Gap 30 H BUN 46 H Creatinine 1.9 H Est GFR ( Amer) 43 Est GFR (Non-Af Amer) 36 Random Glucose 156 H Lactic Acid Calcium 9.2 Magnesium 1.9 Total Bilirubin 3.0 H AST 469 H D ALT 388 H D Alkaline Phosphatase 534 H D Troponin I 3.9500 H* NT-Pro-B Natriuret Pep 8390 H Total Protein 8.3 Albumin 4.3 Globulin 4.0 H Albumin/Globulin Ratio 1.1 Arterial Blood Potassium B-Hydroxybutyrate 0.24 01/05/18 01/05/18 20:40 22:42 WBC RBC Hgb Hct MCV MCH MCHC RDW Plt Count MPV Neut % (Auto) Lymph % (Auto) Nicholas % (Auto) Eos % (Auto) Baso % (Auto) Neut # (Auto) Lymph # (Auto) Nicholas # (Auto) Eos # (Auto) Baso # (Auto) Neutrophils % (Manual) Band Neutrophils % Lymphocytes % (Manual) Monocytes % (Manual) Platelet Estimate Polychromasia Hypochromasia (manual) Anisocytosis (manual) Shahrzad Cells PT INR APTT Puncture Site Lba pCO2 26 L pO2 123 H HCO3 16.8 L ABG pH 7.33 L ABG Total CO2 14.5 L ABG O2 Saturation 98.9 H ABG Base Excess -10.5 L Kade Test Pos ABG Potassium 4.1 A-a O2 Difference 130.0 Respiratory Index 1.1 Glucose 161 H Lactate 5.0 H* FiO2 40.0 Inspiratory BiPAP 18 Expiratory BiPAP 9 Crit Value Called To Dr anderson Crit Value Called By [facility] Crit Value Read Back Y Blood Gas Notified Time 2045 Sodium 139.0 Potassium Chloride 110.0 H Carbon Dioxide Anion Gap BUN Creatinine Est GFR ( Amer) Est GFR (Non-Af Amer) Random Glucose Lactic Acid 4.8 H* Calcium Magnesium Total Bilirubin AST ALT Alkaline Phosphatase Troponin I NT-Pro-B Natriuret Pep Total Protein Albumin Globulin Albumin/Globulin Ratio Arterial Blood Potassium 4.1 B-Hydroxybutyrate Assessment & Plan - Assessment and Plan (Free Text) Assessment: 84 yo M admitted w/ SOB x3 days, elevated cardiac enzymes r/o ACS -trop pos x1, f/u subsequent -code heart consult dr. clements consulted and after eval said does not meet code heart criteria(refer to ED note) -asa 325mg x1 -asa 81mg qd -crestor 5mg qd -cardio consult dr. lutz Pulmonary Edema, most likely 2/2 heart failure -lasix 40mg iv x1 -strict ins/outs -bipap @ 30%, spO2~96% -f/u echo Bradycardia -HR trending down~40 bpm -Dr. Lutz recs RLE cellulitis -zosyn 2.25mg q6 -f/u cxs DM2 -accuchecks q4 -ISS CKD -renally dosed meds hyperkalemia -kayexalate ppx -protonix 40mg -heparin 5000 q8 -npo <Kelechi Moore - Last Filed: 01/06/18 21:38> Results - Vital Signs Recent Vital Signs: Last Vital Signs Temp 97.5 F L 01/06/18 20:00 Pulse 60 01/06/18 20:35 Resp 21 01/06/18 20:49 BP 80/50 L 01/06/18 21:21 Pulse Ox 96 01/06/18 20:35 - Labs Result Diagrams: 01/06/18 07:20 01/06/18 14:25 Labs: Laboratory Results - last 24 hr 01/05/18 01/06/18 01/06/18 22:42 05:14 07:20 WBC RBC Hgb Hct MCV MCH MCHC RDW Plt Count MPV APTT Sodium Potassium Chloride Carbon Dioxide Anion Gap BUN Creatinine Est GFR ( Amer) Est GFR (Non-Af Amer) POC Glucose (mg/dL) 195 H Random Glucose Lactic Acid 4.8 H* 2.8 H Calcium Phosphorus Magnesium Total Bilirubin AST ALT Alkaline Phosphatase Troponin I Total Protein Albumin Globulin Albumin/Globulin Ratio Procalcitonin Urine Color Urine Clarity Urine pH Ur Specific Warren Urine Protein Urine Glucose (UA) Urine Ketones Urine Blood Urine Nitrate Urine Bilirubin Urine Urobilinogen Ur Leukocyte Esterase Urine WBC (Auto) Urine RBC (Auto) Amorphous Sediment Urine Bacteria Urine Opiates Screen Urine Methadone Screen Ur Barbiturates Screen Ur Phencyclidine Scrn Ur Amphetamines Screen U Benzodiazepines Scrn U Oth Cocaine Metabols U Cannabinoids Screen 01/06/18 01/06/1818 07:20 07:20 07:40 WBC 8.6 RBC 3.68 L Hgb 10.7 L Hct 33.0 L MCV 89.7 D MCH 29.0 MCHC 32.3 L RDW 17.0 H Plt Count 425 H D MPV 9.3 APTT Sodium 140 Potassium 5.6 H Chloride 103 Carbon Dioxide 23 Anion Gap 20 BUN 56 H Creatinine 2.3 H Est GFR ( Amer) 35 Est GFR (Non-Af Amer) 29 POC Glucose (mg/dL) 190 H Random Glucose 194 H Lactic Acid Calcium 8.7 Phosphorus 7.5 H Magnesium 1.7 Total Bilirubin 1.5 H AST 711 H D ALT 579 H D Alkaline Phosphatase 390 H D Troponin I 3.8400 H* Total Protein 6.5 Albumin 3.3 L D Globulin 3.1 Albumin/Globulin Ratio 1.1 Procalcitonin Urine Color Urine Clarity Urine pH Ur Specific Warren Urine Protein Urine Glucose (UA) Urine Ketones Urine Blood Urine Nitrate Urine Bilirubin Urine Urobilinogen Ur Leukocyte Esterase Urine WBC (Auto) Urine RBC (Auto) Amorphous Sediment Urine Bacteria Urine Opiates Screen Urine Methadone Screen Ur Barbiturates Screen Ur Phencyclidine Scrn Ur Amphetamines Screen U Benzodiazepines Scrn U Oth Cocaine Metabols U Cannabinoids Screen 01/06/18 01/06/18 01/06/18 11:30 11:41 11:41 WBC RBC Hgb Hct MCV MCH MCHC RDW Plt Count MPV APTT Sodium Potassium Chloride Carbon Dioxide Anion Gap BUN Creatinine Est GFR ( Amer) Est GFR (Non-Af Amer) POC Glucose (mg/dL) 188 H Random Glucose Lactic Acid Calcium Phosphorus Magnesium Total Bilirubin AST ALT Alkaline Phosphatase Troponin I Total Protein Albumin Globulin Albumin/Globulin Ratio Procalcitonin Urine Color Estelita Urine Clarity Hazy Urine pH 5.0 Ur Specific Warren 1.016 Urine Protein 2+ H Urine Glucose (UA) Normal Urine Ketones Negative Urine Blood Negative Urine Nitrate Negative Urine Bilirubin Negative Urine Urobilinogen 4.0 Ur Leukocyte Esterase Neg Urine WBC (Auto) 4 Urine RBC (Auto) 2 Amorphous Sediment Rare H Urine Bacteria Occ H Urine Opiates Screen Negative Urine Methadone Screen Negative Ur Barbiturates Screen Negative Ur Phencyclidine Scrn Negative Ur Amphetamines Screen Negative U Benzodiazepines Scrn Negative U Oth Cocaine Metabols Negative U Cannabinoids Screen Negative 01/06/18 01/06/18 01/06/18 14:25 14:25 14:25 WBC RBC Hgb Hct MCV MCH MCHC RDW Plt Count MPV APTT Sodium 139 Potassium 5.7 H Chloride 104 Carbon Dioxide 21 L Anion Gap 20 BUN 62 H Creatinine 2.4 H Est GFR ( Amer) 33 Est GFR (Non-Af Amer) 27 POC Glucose (mg/dL) Random Glucose 177 H Lactic Acid 2.5 H Calcium 8.3 L Phosphorus Magnesium Total Bilirubin AST ALT Alkaline Phosphatase Troponin I 4.4000 H* Total Protein Albumin Globulin Albumin/Globulin Ratio Procalcitonin 1.18 H Urine Color Urine Clarity Urine pH Ur Specific Warren Urine Protein Urine Glucose (UA) Urine Ketones Urine Blood Urine Nitrate Urine Bilirubin Urine Urobilinogen Ur Leukocyte Esterase Urine WBC (Auto) Urine RBC (Auto) Amorphous Sediment Urine Bacteria Urine Opiates Screen Urine Methadone Screen Ur Barbiturates Screen Ur Phencyclidine Scrn Ur Amphetamines Screen U Benzodiazepines Scrn U Oth Cocaine Metabols U Cannabinoids Screen 01/06/18 01/06/18 01/06/18 16:38 16:44 20:10 WBC RBC Hgb Hct MCV MCH MCHC RDW Plt Count MPV APTT 35 H Sodium Potassium Chloride Carbon Dioxide Anion Gap BUN Creatinine Est GFR ( Amer) Est GFR (Non-Af Amer) POC Glucose (mg/dL) 168 H 139 H Random Glucose Lactic Acid Calcium Phosphorus Magnesium Total Bilirubin AST ALT Alkaline Phosphatase Troponin I Total Protein Albumin Globulin Albumin/Globulin Ratio Procalcitonin Urine Color Urine Clarity Urine pH Ur Specific Warren Urine Protein Urine Glucose (UA) Urine Ketones Urine Blood Urine Nitrate Urine Bilirubin Urine Urobilinogen Ur Leukocyte Esterase Urine WBC (Auto) Urine RBC (Auto) Amorphous Sediment Urine Bacteria Urine Opiates Screen Urine Methadone Screen Ur Barbiturates Screen Ur Phencyclidine Scrn Ur Amphetamines Screen U Benzodiazepines Scrn U Oth Cocaine Metabols U Cannabinoids Screen Assessment & Plan - Date & Time Date: 01/06/18 (I have seen and examined the patient. I agree with the findings and plan of care as documented by Dr. Pop. Patient with pulmonary edema. Respiratory distress. S/P CABG approximately 10 days prior. Admit to ICU. Lasix IV given. BIPAP. Aspirin and Statin. Recheck troponin. Consult to nephro for renal insufficiency. Renally dose medications. Management as per ICU. Monitor for acute changes.) Time: 21:36 Attending/Attestation - Attestation I have personally seen and examined this patient.: Yes I have fully participated in the care of the patient.: Yes I have reviewed all pertinent clinical information: Yes
[2018-01-06] MEDS ORDERED: Dextrose 50% SYRINGE Inj (50 ml) IV PRN (03:37)
[2018-01-06] MEDS ORDERED: Glucagon Recombinant 1 mg Inj IM PRN (03:37)
[2018-01-06] MEDS: (Novolog) Insulin Aspart, Recombinant 100 u/ml 10 ml vial SC SCH ×5 (04:00→20:00)
[2018-01-06] MEDS ORDERED: Sod Polystyrene Sulf 15 gm/60 ml Susp PO ONE ×2 (04:21→05:45)
--- NOTE | 2018-01-06 05:22 | CP.PCM.PN ---
Subjective - Date & Time of Evaluation Date of Evaluation: 01/06/18 Time of Evaluation: 05:48 - Subjective Subjective: Pt examined at bedside. Having difficulty maintaining bipap mask on, actively gagging into mask. Denies chest pain, abd pain, nausea, vomiting, diarrhea. Pt reports difficulty w/ bipap mask causing him to gag. Objective - Vital Signs/Intake and Output Vital Signs (last 24 hours): Temp Pulse Resp BP Pulse Ox 98.1 F 60 29 H 127/77 88 L 01/06/18 04:00 01/06/18 05:12 01/06/18 05:12 01/06/18 05:12 01/06/18 05:12 Intake and Output: 01/05/18 01/06/18 18:59 06:59 Intake Total 320 Balance 320 - Medications Medications: Current Medications Aspirin (Aspirin Chewable) 81 mg PO DAILY [facility] Dextrose (Dextrose 50% Inj) 0 ml IV STAT PRN; Protocol PRN Reason: Hypoglycemia Protocol Dextrose (Glutose 15) 0 gm PO ONCE PRN; Protocol PRN Reason: Hypoglycemia Protocol Glucagon (Glucagen Diagnostic Kit) 0 mg IM STAT PRN; Protocol PRN Reason: Hypoglycemia Protocol Heparin Sodium (Porcine) (Heparin) 5,000 units SC Q8 [facility] Dextrose (Dextrose 5% In Water 1000 Ml) 1,000 mls @ 0 mls/hr IV .Q0M PRN; Protocol PRN Reason: Hypoglycemia Protocol Piperacillin Sod/Tazobactam (Sod 2.25 gm/ Sodium Chloride) 100 mls @ 200 mls/hr IVPB Q6H [facility]; Protocol Insulin Aspart (Novolog) 0 unit SC Q4 [facility]; Protocol Pantoprazole Sodium (Protonix Inj) 40 mg IVP DAILY [facility] Rosuvastatin Calcium (Crestor) 5 mg PO HS [facility] - Labs Labs: 01/05/18 20:09 01/05/18 20:09 PT 16.0 SECONDS (9.7-12.2) H 01/05/18 20:09 INR 1.5 01/05/18 20:09 APTT 31 SECONDS (21-34) 01/05/18 20:09 - Constitutional Appears: Non-toxic - Head Exam Head Exam: ATRAUMATIC, NORMAL INSPECTION, NORMOCEPHALIC - Eye Exam Eye Exam: EOMI, Normal appearance - ENT Exam ENT Exam: Mucous Membranes Dry - Neck Exam Neck Exam: Normal Inspection - Respiratory Exam Respiratory Exam: Accessory Muscle Use, Rales. absent: Wheezes, NORMAL BREATHING PATTERN (tachypneic) - Cardiovascular Exam Cardiovascular Exam: Bradycardia, REGULAR RHYTHM - GI/Abdominal Exam GI & Abdominal Exam: Soft, Normal Bowel Sounds. absent: Distended, Tenderness - Extremities Exam Extremities Exam: Pedal Edema. absent: Calf Tenderness, Normal Inspection (RLE erythematous) - Neurological Exam Neurological Exam: Alert, Awake, Oriented x3 - Psychiatric Exam Psychiatric exam: Normal Affect, Normal Mood - Skin Skin Exam: Dry, Intact, Normal Color, Warm Assessment and Plan - Assessment and Plan (Free Text) Assessment: 84 yo M admitted w/ SOB x3 days, elevated cardiac enzymes r/o ACS -trop pos x1, f/u subsequent -code heart consult dr. clements consulted and after eval said does not meet code heart criteria(refer to ED note) -asa 325mg x1 -asa 81mg qd -crestor 5mg qd -cardio consult dr. lutz Pulmonary Edema, most likely 2/2 heart failure -lasix 40mg iv x1 -strict ins/outs -bipap replaced by hi-flow NC 12L @30% -f/u echo Bradycardia -HR trending down~40 bpm -Dr. Lutz recs RLE cellulitis -zosyn 2.25mg q6 -f/u wound cx -f/u blood cx DM2 -accuchecks q4 -ISS CKD -renally dosed meds hyperkalemia -kayexalate x1 -am labs ppx -protonix 40mg -heparin 5000 q8 -npo
[2018-01-06] MEDS: Piperacillin/Tazobact 2.25 GM in Sodium Chloride 100 ML IVPB SCH ×2 (05:30→12:00)
[2018-01-06 07:36] LABS: HEMOGLOBIN 10.7 g/dL (12.0-18.0); MEAN CORPUSCULAR HGB CONC 32.3 g/dL (33.0-37.0); MEAN PLATELET VOLUME 9.3 fL (7.2-11.7); RBC 3.68 Mil/uL (4.40-5.90); WHITE BLOOD COUNT 8.6 K/uL (4.8-10.8)
[2018-01-06 07:41] LABS: MEAN CELL VOLUME 89.7 fL (80.0-94.0)
[2018-01-06 07:47] LABS: ALB/GLOB RATIO 1.1 (1.0-2.1); ALBUMIN 3.3 g/dL (3.5-5.0); CALCIUM 8.7 mg/dl (8.6-10.4)
--- NOTE | 2018-01-06 09:26 | CP.PCM.PN ---
Subjective - Date & Time of Evaluation Date of Evaluation: 01/06/18 Time of Evaluation: 09:20 - Subjective Subjective: Seen and examined by me this morning.He feels little better than earlier. He came for shortness of breath 2 days.Denies fever,denies chest pain Patient is short of breath,able to talk in full sentence. On high flow oxygen 40% His HR was low last night, Its was in 40ies. Hi SBP was low 90ies. this morning his HR went up to 76 BP 106/67 Patient was code heart on 11/25/2017. cath showed severe CAD,inferior wall and aterioapical wall Akinesis.old occlided RCA. LAD proximal 99% Steonis He was sent to [place] for CABG. Patient had CABG on 12/10/2017. Discharged home.Doesn't know what meds he takes. Objective - Vital Signs/Intake and Output Vital Signs (last 24 hours): Temp Pulse Resp BP Pulse Ox 97.2 F L 74 31 H 106/67 91 L 01/06/18 08:00 01/06/18 07:12 01/06/18 08:45 01/06/18 07:12 01/06/18 07:12 Intake and Output: 01/06/18 01/06/18 06:59 18:59 Intake Total 620 Output Total 60 Balance 560 - Medications Medications: Current Medications Aspirin (Aspirin Chewable) 81 mg PO DAILY [facility] Clopidogrel Bisulfate (Plavix) 75 mg PO DAILY [facility] Dextrose (Dextrose 50% Inj) 0 ml IV STAT PRN; Protocol PRN Reason: Hypoglycemia Protocol Dextrose (Glutose 15) 0 gm PO ONCE PRN; Protocol PRN Reason: Hypoglycemia Protocol Famotidine (Pepcid) 20 mg PO DAILY [facility] Furosemide (Lasix) 40 mg IVP DAILY [facility] Glucagon (Glucagen Diagnostic Kit) 0 mg IM STAT PRN; Protocol PRN Reason: Hypoglycemia Protocol Dextrose (Dextrose 5% In Water 1000 Ml) 1,000 mls @ 0 mls/hr IV .Q0M PRN; Protocol PRN Reason: Hypoglycemia Protocol Piperacillin Sod/Tazobactam (Sod 2.25 gm/ Sodium Chloride) 100 mls @ 200 mls/hr IVPB Q6H [facility]; Protocol Last Admin: 01/06/18 05:30 Dose: 200 mls/hr Heparin Sodium/Sodium Chloride (Heparin 76863 Units/250ml 1/2 Normal Saline) 25,000 units in 250 mls @ 5.674 mls/hr IV .Q24H PRN; Protocol PRN Reason: PROTOCOL Insulin Aspart (Novolog) 0 unit SC Q4 [facility]; Protocol Last Admin: 01/06/18 04:00 Dose: Not Given Rosuvastatin Calcium (Crestor) 5 mg PO HS [facility] - Labs Labs: 01/06/18 07:20 01/06/18 07:20 PT 16.0 SECONDS (9.7-12.2) H 01/05/18 20:09 INR 1.5 01/05/18 20:09 APTT 31 SECONDS (21-34) 01/05/18 20:09 - Constitutional Appears: Non-toxic, Unkempt - Head Exam Head Exam: NORMAL INSPECTION - Eye Exam Eye Exam: Normal appearance - ENT Exam ENT Exam: Mucous Membranes Moist - Neck Exam Neck Exam: Full ROM - Respiratory Exam Respiratory Exam: Rales, NORMAL BREATHING PATTERN - Cardiovascular Exam Cardiovascular Exam: Bradycardia, REGULAR RHYTHM - GI/Abdominal Exam GI & Abdominal Exam: Soft, Normal Bowel Sounds - Extremities Exam Extremities Exam: Full ROM - Back Exam Back Exam: NORMAL INSPECTION - Neurological Exam Neurological Exam: Awake, Oriented x3 - Psychiatric Exam Psychiatric exam: Normal Mood - Skin Skin Exam: Dry Assessment and Plan - Assessment and Plan (Free Text) Plan: 1. Respiratory distress ,Acute CHF,Pulmonary edema,acute on chronic systolic heart failure Dr Dumont well blower consulted s/p Lasix at ER-patient feels little better.Not tolerating BIPAP.Saturating 96%on high flow 40% oxygen On examination he has bilat basal rales Not on beta blockers due to bradycardia,His BP was low also,not on ARB/ACEI We will give lasix 40mg daily,monitor out put,Not making urine? d/w Dr Dumont. We will continue heparin drip for 48hours, aspirin and plavix we will monitor creatinine and K level EKG shows first degree heart block and bradycardia with no acute ST T wave changes second Troponin is 3.8,follow serial troponin follow Echocardiography follow urine drug screen 2.NSTMI s/p CABG,follow troponin conitnue asprin,plavix and heparin drip follow wup with Dr Dumont 3.Acute on chronic renal failure and hyperkalemia patient got lasix,we will monitor creatinine and electrolytes,repeat BMP in the afternoon fluid restriction and lasix for pulmonary edema/CHF Monitor urine out put,not making urine ? History of noncompliance with his diabetes/chronic renal disease ?.No primary care Discussed with Dr Powers. we will follow his recommendation avoid nephrotoxic drugs 4.Diabetes mellitus Patient was noncompliance do HA1c FS with coverage diabetic diet 5.Elevated lactic acid and right leg s/p vein harvest for CABG. r/O Infection Had one dose Vancomycin at ER.we will do Vanco level in the morning Empiric coverage Zosyn renal dose follow blood culture,serial lactic acid follow procalcitonin 6.Transaminitis shock liver h/o alcohol abuse follow LFT 7.Drug abuse Denies recent use,urine drug screen 8.Prophylaxis- dvt-on heparin'Gi on pepcid Follow up 345pm Patient is not making urine. S/P Lasix He is more short of breath. Patient was seen by Dr Powers Patient needs dialysis. Acute renal failure and acute congestive heart failure.Likely Cardiorenal syndrome. Repeat electrolytes noted Discussed with DR Powers. Patient needs urgent dialysis. Consent for dialysis access obtained Pending reports delgado Mccormick. Patient couldn't tell his pharmacy name. Discussed with his Son Aram Keen at [phone].Usually patient's daughter help him. Daughter Stacy Blas [phone]
[2018-01-06 09:47] LABS: TROPONIN I 3.84 ng/mL (0.00-0.120)
[2018-01-06] MEDS: Heparin25000 units/250ml 1/2NS 25,000 UNITS/250 ML BAG IV PRN (10:13)
[2018-01-06 12:01] LABS: URINE AMORPHOUS SEDIMENT RARE /ul (<OCC); URINE BACTERIA OCC (<OCC); URINE BILIRUBIN NEGATIVE (NEGATIVE); URINE BLOOD NEGATIVE (NEGATIVE); URINE CLARITY Hazy (Clear); URINE COLOR Amber (YELLOW); URINE GLUCOSE (UA) NORMAL (Normal); URINE LEUKOCYTE ESTERASE NEG Leu/uL (Negative); URINE PROTEIN 2+ mg/dL (NEGATIVE)
[2018-01-06] MEDS ORDERED: metOLazone 5 MG TAB PO ONE (12:14)
[2018-01-06 12:49] LABS: BARBITURATES, UR NEGATIVE (NEGATIVE); BENZODIAZEPINES, UR NEGATIVE (NEGATIVE); OPIATES, UR NEGATIVE (NEGATIVE); PHENCYCLIDINE, UR NEGATIVE (NEGATIVE)
--- NOTE | 2018-01-06 13:49 | CP.CCUPN ---
<Feliberto Vital - Last Filed: 01/06/18 14:42> CCU Subjective - Physician Review Subjective (Free Text): 01/06/18 14:42 Patient seen and examined at bedside in the ICU. Dyspnea markedly improved, not appreciably dyspnic with speech. Overnight, was bradycardic down to 40's, so no beta-blockers were started, but no reports of hypotension. Patient remains fully awake and alert, but is an extremely poor historian, unable to remember any medications from discharge from [place], unable to remember correct pharmacy he filled his prescriptions at. Denies acute chest pain, abdominal pain, or nausea. CCU Objective - Vital Signs / Intake & Output Vital Signs (Last 4 hours): Vital Signs Temp Pulse Resp BP Pulse Ox 01/06/18 13:24 107/55 L 01/06/18 13:00 64 27 H 01/06/18 12:25 81 28 H 107/55 L 01/06/18 12:00 75 27 H 99 01/06/18 11:56 23 01/06/18 11:47 97.5 F L 01/06/18 11:12 71 23 113/66 97 01/06/18 11:00 80 26 H 98 01/06/18 10:12 77 30 H 121/65 01/06/18 10:09 133/71 01/06/18 10:00 61 30 H Intake and Output (Last 8hrs): Intake & Output 01/05/18 01/06/18 01/06/18 22:59 06:59 14:59 Intake Total 620 371.4 Output Total 60 80 Balance 560 291.4 Weight 63.049 kg 78.1 kg Intake: Intake, IV Amount 420 11.4 Right Antecubital 420 11.4 Oral 200 360 Output: Urine 80 Urethral (Hernandez) 80 Oral Regurgitation 60 Other: # Bowel Movements 0 - Physical Exam Head: Positive for: Atraumatic, Normocephalic Pupils: Positive for: PERRL. Negative for: Pinpoint Extroacular Muscles: Positive for: EOMI. Negative for: Gaze Palsy, Entrapment Conjunctiva: Positive for: Normal. Negative for: Injected, Icteric Mouth: Positive for: Moist Mucous Membranes. Negative for: Dry, Drooling Nose (External): Positive for: Atraumatic. Negative for: Abrasion, Contusion, Laceration Nose (Internal): Positive for: No Active Bleeding. Negative for: Epistaxis Neck: Positive for: Normal Range of Motion, Trachea Midline. Negative for: MIDLINE TENDERNESS, JVD Respiratory/Chest: Positive for: Good Air Exchange, Rales (diffuse rales in all irizarry, more predominant in bilateral bases). Negative for: Clear to Auscultation, Respiratory Distress, Accessory Muscle Use, Wheezes, Rhonchi Cardiovascular: Positive for: Regular Rate and Rhythm, Normal S1, S2. Negative for: Murmurs, Irregular Rhythm, Tachycardic, Bradycardic Abdomen: Positive for: Normal Bowel Sounds. Negative for: Tenderness, Distention Upper Extremity: Positive for: Edema (trace to +1 pitting edema in bilateral UE), Normal ROM. Negative for: Normal Inspection, NORMAL PULSES (difficult to palpate due to peripheral edema, +1 radials bilaterally, +1 brachials), Tenderness, Erythema Lower Extremity: Positive for: Edema (+2-3 pitting edema in bilateral LE from feet ). Negative for: CALF TENDERNESS, NORMAL PULSES (unable to palpate through pitting edema) Neurological: Positive for: GCS=15, Speech Normal Skin: Positive for: Dry, Normal Color, Other (cool but not cold at the distal extremities, otherwise warm). Negative for: Pale Psychiatric: Positive for: Alert, Oriented x 3, Normal Affect, Normal Mood - Medications Active Medications: Active Medications Generic Name Dose Route Start Last Admin Trade Name Freq PRN Reason Stop Dose Admin Aspirin 81 mg 01/06/18 10:01/06/18 10:09 Aspirin Chewable PO 81 mg DAILY RIKI Administration Clopidogrel Bisulfate 75 mg 01/06/18 10:00 01/06/18 10:09 Plavix PO 75 mg DAILY RIKI Administration Dextrose 0 ml 01/06/18 03:37 Dextrose 50% Inj IV STAT PRN Hypoglycemia Protocol Protocol Dextrose 0 gm 01/06/18 03:37 Glutose 15 PO ONCE PRN Hypoglycemia Protocol Protocol Famotidine 20 mg 01/06/18 10:00 01/06/18 10:09 Pepcid PO 20 mg DAILY RIKI Administration Furosemide 40 mg 01/06/18 10:00 01/06/18 10:09 Lasix IVP 40 mg DAILY RIKI Administration Glucagon 0 mg 01/06/18 03:37 Glucagen Diagnostic Kit IM STAT PRN Hypoglycemia Protocol Protocol Dextrose 1,000 mls @ 0 mls/hr 01/06/18 03:37 Dextrose 5% In Water 1000 Ml IV .Q0M PRN Hypoglycemia Protocol Protocol Per Protocol Piperacillin Sod/Tazobactam 100 mls @ 200 mls/hr 01/06/18 04:00 01/06/18 12:00 Sod 2.25 gm/ Sodium Chloride IVPB 200 mls/hr Q6H RIKI Administration Protocol Heparin Sodium/Sodium Chloride 25,000 units in 250 mls @ 5.674 mls/hr 01/06/18 08:17 01/06/18 10:13 Heparin 31936 Units/250ml 1/2 Normal Saline IV 9 units/kg/hr .Q24H PRN 5.674 mls/hr PROTOCOL Administration Protocol 9 UNITS/KG/HR Insulin Aspart 0 unit 01/06/18 04:00 01/06/18 12:00 Novolog SC 1 u Q4 RIKI Administration Protocol Rosuvastatin Calcium 5 mg 01/06/18 22:00 Crestor PO HS RIKI - Patient Studies Lab Studies: Microbiology Studies 01/06/18 07:20 Gram Stain - Final Leg - Right Lab Studies 01/06/18 01/06/18 01/06/18 Range/Units 11:41 11:41 07:20 WBC (4.8-10.8) K/uL RBC (4.40-5.90) Mil/uL Hgb (12.0-18.0) g/dL Hct (35.0-51.0) % MCV (80.0-94.0) fL MCH (27.0-31.0) pg MCHC (33.0-37.0) g/dL RDW (11.5-14.5) % Plt Count (130-400) K/uL MPV (7.2-11.7) fL Neut % (Auto) (50.0-75.0) % Lymph % (Auto) (20.0-40.0) % Dougherty % (Auto) (0.0-10.0) % Eos % (Auto) (0.0-4.0) % Baso % (Auto) (0.0-2.0) % Neut # (Auto) (1.8-7.0) K/uL Lymph # (Auto) (1.0-4.3) K/uL Dougherty # (Auto) (0.0-0.8) K/uL Eos # (Auto) (0.0-0.7) K/uL Baso # (Auto) (0.0-0.2) K/uL Neutrophils % (Manual) (50-75) % Band Neutrophils % (0-2) % Lymphocytes % (Manual) (20-40) % Monocytes % (Manual) (0-10) % Platelet Estimate (NORMAL) Polychromasia Hypochromasia (manual) Anisocytosis (manual) Beaver Cells PT (9.7-12.2) SECONDS INR APTT (21-34) SECONDS Puncture Site pCO2 (35-45) mm/Hg pO2 (80-100) mm/Hg HCO3 (21-28) mmol/L ABG pH (7.35-7.45) ABG Total CO2 (22-28) mmol/L ABG O2 Saturation (95-98) % ABG Base Excess (-2.0-3.0) mmol/L Kade Test ABG Potassium (3.6-5.2) mmol/L A-a O2 Difference mm/Hg Respiratory Index Glucose (75-110) mg/dl Lactate (0.7-2.1) mmol/L FiO2 % Inspiratory BiPAP Expiratory BiPAP Crit Value Called To Crit Value Called By Crit Value Read Back Blood Gas Notified Time Sodium 140 (132-148) mmol/L Potassium 5.6 H (3.6-5.2) mmol/L Chloride 103 (98-107) mmol/L Carbon Dioxide 23 (22-30) mmol/L Anion Gap 20 (10-20) BUN 56 H (9-20) mg/dL Creatinine 2.3 H (0.8-1.5) mg/dL Est GFR ( Amer) 35 Est GFR (Non-Af Amer) 29 POC Glucose (mg/dL) (65-110) mg/dL Random Glucose 194 H (75-110) mg/dL Lactic Acid (0.7-2.1) mmol/L Calcium 8.7 (8.6-10.4) mg/dl Phosphorus 7.5 H (2.5-4.5) mg/dL Magnesium 1.7 (1.6-2.3) mg/dL Total Bilirubin 1.5 H (0.2-1.3) mg/dL AST 711 H D (17-59) U/L ALT 579 H D (21-72) U/L Alkaline Phosphatase 390 H D (38-126) U/L Troponin I 3.8400 H* (0.00-0.120) ng/mL NT-Pro-B Natriuret Pep (0-900) pg/mL Total Protein 6.5 (6.3-8.3) g/dL Albumin 3.3 L D (3.5-5.0) g/dL Globulin 3.1 (2.2-3.9) gm/dL Albumin/Globulin Ratio 1.1 (1.0-2.1) Arterial Blood Potassium (3.6-5.2) mmol/L Urine Color Estelita (YELLOW) Urine Clarity Hazy (Clear) Urine pH 5.0 (5.0-8.0) Ur Specific [place] 1.016 (1.003-1.030) Urine Protein 2+ H (NEGATIVE) mg/dL Urine Glucose (UA) Normal (Normal) mg/dL Urine Ketones Negative (NEGATIVE) mg/dL Urine Blood Negative (NEGATIVE) Urine Nitrate Negative (NEGATIVE) Urine Bilirubin Negative (NEGATIVE) Urine Urobilinogen 4.0 (0.2-1.0) mg/dL Ur Leukocyte Esterase Neg (Negative) Julia/uL Urine WBC (Auto) 4 (0-5) /hpf Urine RBC (Auto) 2 (0-3) /hpf Amorphous Sediment Rare H (<OCC) /ul Urine Bacteria Occ H (<OCC) Urine Opiates Screen Negative (NEGATIVE) Urine Methadone Screen Negative (NEGATIVE) Ur Barbiturates Screen Negative (NEGATIVE) Ur Phencyclidine Scrn Negative (NEGATIVE) Ur Amphetamines Screen Negative (NEGATIVE) U Benzodiazepines Scrn Negative (NEGATIVE) U Oth Cocaine Metabols Negative (NEGATIVE) U Cannabinoids Screen Negative (NEGATIVE) B-Hydroxybutyrate (0.02-0.27) mM 01/06/18 01/06/18 01/06/18 Range/Units 07:20 07:20 05:14 WBC 8.6 (4.8-10.8) K/uL RBC 3.68 L (4.40-5.90) Mil/uL Hgb 10.7 L (12.0-18.0) g/dL Hct 33.0 L (35.0-51.0) % MCV 89.7 D (80.0-94.0) fL MCH 29.0 (27.0-31.0) pg MCHC 32.3 L (33.0-37.0) g/dL RDW 17.0 H (11.5-14.5) % Plt Count 425 H D (130-400) K/uL MPV 9.3 (7.2-11.7) fL Neut % (Auto) (50.0-75.0) % Lymph % (Auto) (20.0-40.0) % Dougherty % (Auto) (0.0-10.0) % Eos % (Auto) (0.0-4.0) % Baso % (Auto) (0.0-2.0) % Neut # (Auto) (1.8-7.0) K/uL Lymph # (Auto) (1.0-4.3) K/uL Dougherty # (Auto) (0.0-0.8) K/uL Eos # (Auto) (0.0-0.7) K/uL Baso # (Auto) (0.0-0.2) K/uL Neutrophils % (Manual) (50-75) % Band Neutrophils % (0-2) % Lymphocytes % (Manual) (20-40) % Monocytes % (Manual) (0-10) % Platelet Estimate (NORMAL) Polychromasia Hypochromasia (manual) Anisocytosis (manual) Beaver Cells PT (9.7-12.2) SECONDS INR APTT (21-34) SECONDS Puncture Site pCO2 (35-45) mm/Hg pO2 (80-100) mm/Hg HCO3 (21-28) mmol/L ABG pH (7.35-7.45) ABG Total CO2 (22-28) mmol/L ABG O2 Saturation (95-98) % ABG Base Excess (-2.0-3.0) mmol/L Kade Test ABG Potassium (3.6-5.2) mmol/L A-a O2 Difference mm/Hg Respiratory Index Glucose (75-110) mg/dl Lactate (0.7-2.1) mmol/L FiO2 % Inspiratory BiPAP Expiratory BiPAP Crit Value Called To Crit Value Called By Crit Value Read Back Blood Gas Notified Time Sodium (132-148) mmol/L Potassium (3.6-5.2) mmol/L Chloride (98-107) mmol/L Carbon Dioxide (22-30) mmol/L Anion Gap (10-20) BUN (9-20) mg/dL Creatinine (0.8-1.5) mg/dL Est GFR ( Amer) Est GFR (Non-Af Amer) POC Glucose (mg/dL) 195 H (65-110) mg/dL Random Glucose (75-110) mg/dL Lactic Acid 2.8 H (0.7-2.1) mmol/L Calcium (8.6-10.4) mg/dl Phosphorus (2.5-4.5) mg/dL Magnesium (1.6-2.3) mg/dL Total Bilirubin (0.2-1.3) mg/dL AST (17-59) U/L ALT (21-72) U/L Alkaline Phosphatase (38-126) U/L Troponin I (0.00-0.120) ng/mL NT-Pro-B Natriuret Pep (0-900) pg/mL Total Protein (6.3-8.3) g/dL Albumin (3.5-5.0) g/dL Globulin (2.2-3.9) gm/dL Albumin/Globulin Ratio (1.0-2.1) Arterial Blood Potassium (3.6-5.2) mmol/L Urine Color (YELLOW) Urine Clarity (Clear) Urine pH (5.0-8.0) Ur Specific [place] (1.003-1.030) Urine Protein (NEGATIVE) mg/dL Urine Glucose (UA) (Normal) mg/dL Urine Ketones (NEGATIVE) mg/dL Urine Blood (NEGATIVE) Urine Nitrate (NEGATIVE) Urine Bilirubin (NEGATIVE) Urine Urobilinogen (0.2-1.0) mg/dL Ur Leukocyte Esterase (Negative) Julia/uL Urine WBC (Auto) (0-5) /hpf Urine RBC (Auto) (0-3) /hpf Amorphous Sediment (<OCC) /ul Urine Bacteria (<OCC) Urine Opiates Screen (NEGATIVE) Urine Methadone Screen (NEGATIVE) Ur Barbiturates Screen (NEGATIVE) Ur Phencyclidine Scrn (NEGATIVE) Ur Amphetamines Screen (NEGATIVE) U Benzodiazepines Scrn (NEGATIVE) U Oth Cocaine Metabols (NEGATIVE) U Cannabinoids Screen (NEGATIVE) B-Hydroxybutyrate (0.02-0.27) mM 01/05/18 01/05/18 01/05/18 Range/Units 22:42 20:40 20:09 WBC (4.8-10.8) K/uL RBC (4.40-5.90) Mil/uL Hgb (12.0-18.0) g/dL Hct (35.0-51.0) % MCV (80.0-94.0) fL MCH (27.0-31.0) pg MCHC (33.0-37.0) g/dL RDW (11.5-14.5) % Plt Count (130-400) K/uL MPV (7.2-11.7) fL Neut % (Auto) (50.0-75.0) % Lymph % (Auto) (20.0-40.0) % Dougherty % (Auto) (0.0-10.0) % Eos % (Auto) (0.0-4.0) % Baso % (Auto) (0.0-2.0) % Neut # (Auto) (1.8-7.0) K/uL Lymph # (Auto) (1.0-4.3) K/uL Doug[place] # (Auto) (0.0-0.8) K/uL Eos # (Auto) (0.0-0.7) K/uL Baso # (Auto) (0.0-0.2) K/uL Neutrophils % (Manual) (50-75) % Band Neutrophils % (0-2) % Lymphocytes % (Manual) (20-40) % Monocytes % (Manual) (0-10) % Platelet Estimate (NORMAL) Polychromasia Hypochromasia (manual) Anisocytosis (manual) Shahrzad Cells PT (9.7-12.2) SECONDS INR APTT (21-34) SECONDS Puncture Site Lba pCO2 26 L (35-45) mm/Hg pO2 123 H (80-100) mm/Hg HCO3 16.8 L (21-28) mmol/L ABG pH 7.33 L (7.35-7.45) ABG Total CO2 14.5 L (22-28) mmol/L ABG O2 Saturation 98.9 H (95-98) % ABG Base Excess -10.5 L (-2.0-3.0) mmol/L Kade Test Pos ABG Potassium 4.1 (3.6-5.2) mmol/L A-a O2 Difference 130.0 mm/Hg Respiratory Index 1.1 Glucose 161 H (75-110) mg/dl Lactate 5.0 H* (0.7-2.1) mmol/L FiO2 40.0 % Inspiratory BiPAP 18 Expiratory BiPAP 9 Crit Value Called To Dr anderson Crit Value Called By [facility] Crit Value Read Back Y Blood Gas Notified Time 2045 Sodium 139.0 143 (132-148) mmol/L Potassium 5.5 H (3.6-5.2) mmol/L Chloride 110.0 H 104 (98-107) mmol/L Carbon Dioxide 15 L (22-30) mmol/L Anion Gap 30 H (10-20) BUN 46 H (9-20) mg/dL Creatinine 1.9 H (0.8-1.5) mg/dL Est GFR ( Amer) 43 Est GFR (Non-Af Amer) 36 POC Glucose (mg/dL) (65-110) mg/dL Random Glucose 156 H (75-110) mg/dL Lactic Acid 4.8 H* (0.7-2.1) mmol/L Calcium 9.2 (8.6-10.4) mg/dl Phosphorus (2.5-4.5) mg/dL Magnesium 1.9 (1.6-2.3) mg/dL Total Bilirubin 3.0 H (0.2-1.3) mg/dL AST 469 H D (17-59) U/L ALT 388 H D (21-72) U/L Alkaline Phosphatase 534 H D (38-126) U/L Troponin I 3.9500 H* (0.00-0.120) ng/mL NT-Pro-B Natriuret Pep 8390 H (0-900) pg/mL Total Protein 8.3 (6.3-8.3) g/dL Albumin 4.3 (3.5-5.0) g/dL Globulin 4.0 H (2.2-3.9) gm/dL Albumin/Globulin Ratio 1.1 (1.0-2.1) Arterial Blood Potassium 4.1 (3.6-5.2) mmol/L Urine Color (YELLOW) Urine Clarity (Clear) Urine pH (5.0-8.0) Ur Specific [place] (1.003-1.030) Urine Protein (NEGATIVE) mg/dL Urine Glucose (UA) (Normal) mg/dL Urine Ketones (NEGATIVE) mg/dL Urine Blood (NEGATIVE) Urine Nitrate (NEGATIVE) Urine Bilirubin (NEGATIVE) Urine Urobilinogen (0.2-1.0) mg/dL Ur Leukocyte Esterase (Negative) Julia/uL Urine WBC (Auto) (0-5) /hpf Urine RBC (Auto) (0-3) /hpf Amorphous Sediment (<OCC) /ul Urine Bacteria (<OCC) Urine Opiates Screen (NEGATIVE) Urine Methadone Screen (NEGATIVE) Ur Barbiturates Screen (NEGATIVE) Ur Phencyclidine Scrn (NEGATIVE) Ur Amphetamines Screen (NEGATIVE) U Benzodiazepines Scrn (NEGATIVE) U Oth Cocaine Metabols (NEGATIVE) U Cannabinoids Screen (NEGATIVE) B-Hydroxybutyrate 0.24 (0.02-0.27) mM 01/05/18 01/05/18 Range/Units 20:09 20:09 WBC 13.7 H (4.8-10.8) K/uL RBC 4.34 L (4.40-5.90) Mil/uL Hgb 12.4 (12.0-18.0) g/dL Hct 40.1 (35.0-51.0) % MCV 92.6 D (80.0-94.0) fL MCH 28.7 (27.0-31.0) pg MCHC 31.0 L (33.0-37.0) g/dL RDW 17.7 H (11.5-14.5) % Plt Count 590 H D (130-400) K/uL MPV 8.8 (7.2-11.7) fL Neut % (Auto) 87.4 H (50.0-75.0) % Lymph % (Auto) 6.6 L (20.0-40.0) % Dougherty % (Auto) 5.3 (0.0-10.0) % Eos % (Auto) 0.2 (0.0-4.0) % Baso % (Auto) 0.5 (0.0-2.0) % Neut # (Auto) 12.0 H (1.8-7.0) K/uL Lymph # (Auto) 0.9 L (1.0-4.3) K/uL [place] # (Auto) 0.7 (0.0-0.8) K/uL Eos # (Auto) 0.0 (0.0-0.7) K/uL Baso # (Auto) 0.1 (0.0-0.2) K/uL Neutrophils % (Manual) 87 H (50-75) % Band Neutrophils % 1 (0-2) % Lymphocytes % (Manual) 8 L (20-40) % Monocytes % (Manual) 4 (0-10) % Platelet Estimate Increased H (NORMAL) Polychromasia Slight Hypochromasia (manual) Slight Anisocytosis (manual) Slight Beaver Cells Slight PT 16.0 H (9.7-12.2) SECONDS INR 1.5 APTT 31 (21-34) SECONDS Puncture Site pCO2 (35-45) mm/Hg pO2 (80-100) mm/Hg HCO3 (21-28) mmol/L ABG pH (7.35-7.45) ABG Total CO2 (22-28) mmol/L ABG O2 Saturation (95-98) % ABG Base Excess (-2.0-3.0) mmol/L Kade Test ABG Potassium (3.6-5.2) mmol/L A-a O2 Difference mm/Hg Respiratory Index Glucose (75-110) mg/dl Lactate (0.7-2.1) mmol/L FiO2 % Inspiratory BiPAP Expiratory BiPAP Crit Value Called To Crit Value Called By Crit Value Read Back Blood Gas Notified Time Sodium (132-148) mmol/L Potassium (3.6-5.2) mmol/L Chloride (98-107) mmol/L Carbon Dioxide (22-30) mmol/L Anion Gap (10-20) BUN (9-20) mg/dL Creatinine (0.8-1.5) mg/dL Est GFR ( Amer) Est GFR (Non-Af Amer) POC Glucose (mg/dL) (65-110) mg/dL Random Glucose (75-110) mg/dL Lactic Acid (0.7-2.1) mmol/L Calcium (8.6-10.4) mg/dl Phosphorus (2.5-4.5) mg/dL Magnesium (1.6-2.3) mg/dL Total Bilirubin (0.2-1.3) mg/dL AST (17-59) U/L ALT (21-72) U/L Alkaline Phosphatase (38-126) U/L Troponin I (0.00-0.120) ng/mL NT-Pro-B Natriuret Pep (0-900) pg/mL Total Protein (6.3-8.3) g/dL Albumin (3.5-5.0) g/dL Globulin (2.2-3.9) gm/dL Albumin/Globulin Ratio (1.0-2.1) Arterial Blood Potassium (3.6-5.2) mmol/L Urine Color (YELLOW) Urine Clarity (Clear) Urine pH (5.0-8.0) Ur Specific [place] (1.003-1.030) Urine Protein (NEGATIVE) mg/dL Urine Glucose (UA) (Normal) mg/dL Urine Ketones (NEGATIVE) mg/dL Urine Blood (NEGATIVE) Urine Nitrate (NEGATIVE) Urine Bilirubin (NEGATIVE) Urine Urobilinogen (0.2-1.0) mg/dL Ur Leukocyte Esterase (Negative) Julia/uL Urine WBC (Auto) (0-5) /hpf Urine RBC (Auto) (0-3) /hpf Amorphous Sediment (<OCC) /ul Urine Bacteria (<OCC) Urine Opiates Screen (NEGATIVE) Urine Methadone Screen (NEGATIVE) Ur Barbiturates Screen (NEGATIVE) Ur Phencyclidine Scrn (NEGATIVE) Ur Amphetamines Screen (NEGATIVE) U Benzodiazepines Scrn (NEGATIVE) U Oth Cocaine Metabols (NEGATIVE) U Cannabinoids Screen (NEGATIVE) B-Hydroxybutyrate (0.02-0.27) mM Laboratory Results - last 24 hr 01/05/18 01/05/18 01/05/18 20:09 20:09 20:09 WBC 13.7 H RBC 4.34 L Hgb 12.4 Hct 40.1 MCV 92.6 D MCH 28.7 MCHC 31.0 L RDW 17.7 H Plt Count 590 H D MPV 8.8 Neut % (Auto) 87.4 H Lymph % (Auto) 6.6 L [place] % (Auto) 5.3 Eos % (Auto) 0.2 Baso % (Auto) 0.5 Neut # (Auto) 12.0 H Lymph # (Auto) 0.9 L [place] # (Auto) 0.7 Eos # (Auto) 0.0 Baso # (Auto) 0.1 Neutrophils % (Manual) 87 H Band Neutrophils % 1 Lymphocytes % (Manual) 8 L Monocytes % (Manual) 4 Platelet Estimate Increased H Polychromasia Slight Hypochromasia (manual) Slight Anisocytosis (manual) Slight Beaver Cells Slight PT 16.0 H INR 1.5 APTT 31 Puncture Site pCO2 pO2 HCO3 ABG pH ABG Total CO2 ABG O2 Saturation ABG Base Excess Kade Test ABG Potassium A-a O2 Difference Respiratory Index Glucose Lactate FiO2 Inspiratory BiPAP Expiratory BiPAP Crit Value Called To Crit Value Called By Crit Value Read Back Blood Gas Notified Time Sodium 143 Potassium 5.5 H Chloride 104 Carbon Dioxide 15 L Anion Gap 30 H BUN 46 H Creatinine 1.9 H Est GFR ( Amer) 43 Est GFR (Non-Af Amer) 36 POC Glucose (mg/dL) Random Glucose 156 H Lactic Acid Calcium 9.2 Phosphorus Magnesium 1.9 Total Bilirubin 3.0 H AST 469 H D ALT 388 H D Alkaline Phosphatase 534 H D Troponin I 3.9500 H* NT-Pro-B Natriuret Pep 8390 H Total Protein 8.3 Albumin 4.3 Globulin 4.0 H Albumin/Globulin Ratio 1.1 Arterial Blood Potassium Urine Color Urine Clarity Urine pH Ur Specific [place] Urine Protein Urine Glucose (UA) Urine Ketones Urine Blood Urine Nitrate Urine Bilirubin Urine Urobilinogen Ur Leukocyte Esterase Urine WBC (Auto) Urine RBC (Auto) Amorphous Sediment Urine Bacteria Urine Opiates Screen Urine Methadone Screen Ur Barbiturates Screen Ur Phencyclidine Scrn Ur Amphetamines Screen U Benzodiazepines Scrn U Oth Cocaine Metabols U Cannabinoids Screen B-Hydroxybutyrate 0.24 01/05/18 01/05/18 01/06/18 20:40 22:42 05:14 WBC RBC Hgb Hct MCV MCH MCHC RDW Plt Count MPV Neut % (Auto) Lymph % (Auto) [place] % (Auto) Eos % (Auto) Baso % (Auto) Neut # (Auto) Lymph # (Auto) [place] # (Auto) Eos # (Auto) Baso # (Auto) Neutrophils % (Manual) Band Neutrophils % Lymphocytes % (Manual) Monocytes % (Manual) Platelet Estimate Polychromasia Hypochromasia (manual) Anisocytosis (manual) Shahrzad Cells PT INR APTT Puncture Site Lba pCO2 26 L pO2 123 H HCO3 16.8 L ABG pH 7.33 L ABG Total CO2 14.5 L ABG O2 Saturation 98.9 H ABG Base Excess -10.5 L Kade Test Pos ABG Potassium 4.1 A-a O2 Difference 130.0 Respiratory Index 1.1 Glucose 161 H Lactate 5.0 H* FiO2 40.0 Inspiratory BiPAP 18 Expiratory BiPAP 9 Crit Value Called To Dr anderson Crit Value Called By [facility] Crit Value Read Back Y Blood Gas Notified Time 2045 Sodium 139.0 Potassium Chloride 110.0 H Carbon Dioxide Anion Gap BUN Creatinine Est GFR ( Amer) Est GFR (Non-Af Amer) POC Glucose (mg/dL) 195 H Random Glucose Lactic Acid 4.8 H* Calcium Phosphorus Magnesium Total Bilirubin AST ALT Alkaline Phosphatase Troponin I NT-Pro-B Natriuret Pep Total Protein Albumin Globulin Albumin/Globulin Ratio Arterial Blood Potassium 4.1 Urine Color Urine Clarity Urine pH Ur Specific [place] Urine Protein Urine Glucose (UA) Urine Ketones Urine Blood Urine Nitrate Urine Bilirubin Urine Urobilinogen Ur Leukocyte Esterase Urine WBC (Auto) Urine RBC (Auto) Amorphous Sediment Urine Bacteria Urine Opiates Screen Urine Methadone Screen Ur Barbiturates Screen Ur Phencyclidine Scrn Ur Amphetamines Screen U Benzodiazepines Scrn U Oth Cocaine Metabols U Cannabinoids Screen B-Hydroxybutyrate 01/06/18 01/06/18 01/06/18 07:20 07:20 07:20 WBC 8.6 RBC 3.68 L Hgb 10.7 L Hct 33.0 L MCV 89.7 D MCH 29.0 MCHC 32.3 L RDW 17.0 H Plt Count 425 H D MPV 9.3 Neut % (Auto) Lymph % (Auto) [place] % (Auto) Eos % (Auto) Baso % (Auto) Neut # (Auto) Lymph # (Auto) Dougherty # (Auto) Eos # (Auto) Baso # (Auto) Neutrophils % (Manual) Band Neutrophils % Lymphocytes % (Manual) Monocytes % (Manual) Platelet Estimate Polychromasia Hypochromasia (manual) Anisocytosis (manual) Shahrzad Cells PT INR APTT Puncture Site pCO2 pO2 HCO3 ABG pH ABG Total CO2 ABG O2 Saturation ABG Base Excess Kade Test ABG Potassium A-a O2 Difference Respiratory Index Glucose Lactate FiO2 Inspiratory BiPAP Expiratory BiPAP Crit Value Called To Crit Value Called By Crit Value Read Back Blood Gas Notified Time Sodium 140 Potassium 5.6 H Chloride 103 Carbon Dioxide 23 Anion Gap 20 BUN 56 H Creatinine 2.3 H Est GFR ( Amer) 35 Est GFR (Non-Af Amer) 29 POC Glucose (mg/dL) Random Glucose 194 H Lactic Acid 2.8 H Calcium 8.7 Phosphorus 7.5 H Magnesium 1.7 Total Bilirubin 1.5 H AST 711 H D ALT 579 H D Alkaline Phosphatase 390 H D Troponin I 3.8400 H* NT-Pro-B Natriuret Pep Total Protein 6.5 Albumin 3.3 L D Globulin 3.1 Albumin/Globulin Ratio 1.1 Arterial Blood Potassium Urine Color Urine Clarity Urine pH Ur Specific [place] Urine Protein Urine Glucose (UA) Urine Ketones Urine Blood Urine Nitrate Urine Bilirubin Urine Urobilinogen Ur Leukocyte Esterase Urine WBC (Auto) Urine RBC (Auto) Amorphous Sediment Urine Bacteria Urine Opiates Screen Urine Methadone Screen Ur Barbiturates Screen Ur Phencyclidine Scrn Ur Amphetamines Screen U Benzodiazepines Scrn U Oth Cocaine Metabols U Cannabinoids Screen B-Hydroxybutyrate 01/06/18 01/06/18 11:41 11:41 WBC RBC Hgb Hct MCV MCH MCHC RDW Plt Count MPV Neut % (Auto) Lymph % (Auto) [place] % (Auto) Eos % (Auto) Baso % (Auto) Neut # (Auto) Lymph # (Auto) Dougherty # (Auto) Eos # (Auto) Baso # (Auto) Neutrophils % (Manual) Band Neutrophils % Lymphocytes % (Manual) Monocytes % (Manual) Platelet Estimate Polychromasia Hypochromasia (manual) Anisocytosis (manual) Shahrzad Cells PT INR APTT Puncture Site pCO2 pO2 HCO3 ABG pH ABG Total CO2 ABG O2 Saturation ABG Base Excess Kade Test ABG Potassium A-a O2 Difference Respiratory Index Glucose Lactate FiO2 Inspiratory BiPAP Expiratory BiPAP Crit Value Called To Crit Value Called By Crit Value Read Back Blood Gas Notified Time Sodium Potassium Chloride Carbon Dioxide Anion Gap BUN Creatinine Est GFR ( Amer) Est GFR (Non-Af Amer) POC Glucose (mg/dL) Random Glucose Lactic Acid Calcium Phosphorus Magnesium Total Bilirubin AST ALT Alkaline Phosphatase Troponin I NT-Pro-B Natriuret Pep Total Protein Albumin Globulin Albumin/Globulin Ratio Arterial Blood Potassium Urine Color Estelita Urine Clarity Hazy Urine pH 5.0 Ur Specific [place] 1.016 Urine Protein 2+ H Urine Glucose (UA) Normal Urine Ketones Negative Urine Blood Negative Urine Nitrate Negative Urine Bilirubin Negative Urine Urobilinogen 4.0 Ur Leukocyte Esterase Neg Urine WBC (Auto) 4 Urine RBC (Auto) 2 Amorphous Sediment Rare H Urine Bacteria Occ H Urine Opiates Screen Negative Urine Methadone Screen Negative Ur Barbiturates Screen Negative Ur Phencyclidine Scrn Negative Ur Amphetamines Screen Negative U Benzodiazepines Scrn Negative U Oth Cocaine Metabols Negative U Cannabinoids Screen Negative B-Hydroxybutyrate EKG/Cardiology Studies: Cardiology / EKG Studies 01/05/18 19:53 EKG [ELECTROCARDIOGRAM] Stat Comment: Mode Of Transportation: BED Reason For Exam: cp 01/05/18 20:03 ELECTROCARDIOGRAM Stat Comment: Mode Of Transportation: BED Reason For Exam: SOB 01/06/18 08:03 ELECTROCARDIOGRAM Routine Comment: Mode Of Transportation: Reason For Exam: f/u, 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, madan and poss AV block 01/06/18 10:04 ELECTROCARDIOGRAM Routine Comment: Mode Of Transportation: Reason For Exam: reassess rhythm Fingerstick Blood Sugar Results: 188 Review of Systems - Review of Systems All systems: reviewed and no additional remarkable complaints except (as per Subjective) Critical Care Progress Note - Nutrition Nutrition: Nutrition Category Date Time Status Renal Diet [DIET] Diets 01/06/18 Breakfast Active Assessment/Plan - Assessment and Plan (Free Text) Assessment: This is a 67 yo M with PMH of CAD s/p CABG 11 days ago, DM, and remote hx of cocaine abuse (claims last use > 20 yrs ago). He presented to for severe shortness of breath x2-3 days, and was admitted to ICU for NSTEMI s/p recent CABG, and signs of fluid overload. He is now showing signs suspicious for acute renal failure. Plan: Neuro: -awake and alert, afebrile -maintain normothermia Pulm: -Satting well on Vapotherm canula at 10L and 40% FiO2 -CXR today reviewed and compared to yesterday, appears worse/more fluid overloaded today -ABG from yesterday reviewed -Attempting to diurese with IV Lasix, minimal urine output, hernandez placed and additional 40mg IVP Lasix and 5mg PO Metolazone give, will f/u -WBCs improved, afebrile, less likely PNA, more likely CXR findings from acute fluid overload Cardio: -Madan overnight to 40's, but maintaining MAP > 65 consistently, HT 50's-70's today, very prolonged GA on 4x EKGs but no clear findings consistent with more advanced AV block -Echo obtained, pending official read -Given CAD and recent CABG, now signs of diffuse fluid overload (LE and UE with pitting edema, lung cxr with bilateral effusions), concern for acute CHF vs renal failure Currently on Lasix 40mg IVP daily, got 1x dose in ED overnight, but poor UOP despite overnight and AM dose Hernandez placed, Strict I's and O's -patient poor historian, unable to provide prior meds or pharmacy obtained from; will contact [place] on Monday when Med Records dept open to obtain copy of discharge meds prescribed to patient -No beta-rosa due to bradycardia overnight -Continue ASA, Plavix, Statin, Heparin drip -Trops: 3.95 -> 3.84 -> 4.4 (latest); suggestive of NSTEMI; continue heparin drip -Cardio consulted, appreciate all recs GI: -Renal diet, tolerating well, is intaking fluids -Pepcid for GI ppx Renal: -K 5.6 this AM, increased to 5.7 on recheck despite AM Kayexelate -concerning for acute renal failure -Nephro following (Dr. Powers), appreciate all recs; trial 120mg IV Lasix x1, consenting for dialysis cath and will likely need HD -Cr 1.9 on admit, increased to 2.3 this AM, anuric with < 200 cc urine output despite multiple IV lasix doses and 1x Metolazone -UDS obtained, negative for illicits Heme: -Hgb decreased from 12.4 to 10.7, but not acutely tachycardia, no signs of acute bleeding, more likely dilutional -continue to monitor -Heparin drip covers for DVT ppx ID: -Leukocytosis resolved, WBCs 8.6 today -afebrile -Got Vanco and Zosyn x1 each in ED, can hold further doses for now and monitor Dispo: ICU, pending possible HD as per Nephro FEN: Renal diet Access: Peripheral IV x1, pending Dialysis TLC placement Consults: Nephro, Cardio Ppx: Heparin covers for DVT, Pepcid for GI CODE: Unknown, so Full by default Seen, reviewed, and discussed with attending, Dr. Lynch <Amor Lynch - Last Filed: 01/06/18 15:39> CCU Objective - Vital Signs / Intake & Output Vital Signs (Last 4 hours): Vital Signs Temp Pulse Resp BP Pulse Ox 01/06/18 15:24 66 26 H 102/59 L 98 01/06/18 15:13 97/61 L 01/06/18 15:07 69 26 H 97/61 L 98 01/06/18 15:00 82 26 H 89 L 01/06/18 14:26 68 27 H 98/55 L 99 01/06/18 14:00 65 21 97 01/06/18 13:50 27 H 01/06/18 13:24 107/55 L 01/06/18 13:00 64 27 H 01/06/18 12:25 81 28 H 107/55 L 01/06/18 12:00 75 27 H 99 01/06/18 11:56 23 01/06/18 11:47 97.5 F L Intake and Output (Last 8hrs): Intake & Output 01/06/18 01/06/18 01/06/18 06:59 14:59 22:59 Intake Total 620 748.5 5.7 Output Total 60 115 20 Balance 560 633.5 -14.3 Weight 172 lb 2.896 oz Intake: Intake, IV Amount 420 28.5 5.7 Right Antecubital 420 28.5 5.7 Oral 200 720 Output: Urine 115 20 Urethral (Hernandez) 115 20 Oral Regurgitation 60 Other: # Bowel Movements 0 - Medications Active Medications: Active Medications Generic Name Dose Route Start Last Admin Trade Name Freq PRN Reason Stop Dose Admin Aspirin 81 mg 01/06/18 10:00 01/06/18 10:09 Aspirin Chewable PO 81 mg DAILY RIKI Administration Clopidogrel Bisulfate 75 mg 01/06/18 10:00 01/06/18 10:09 Plavix PO 75 mg DAILY RIKI Administration Dextrose 0 ml 01/06/18 03:37 Dextrose 50% Inj IV STAT PRN Hypoglycemia Protocol Protocol Dextrose 0 gm 01/06/18 03:37 Glutose 15 PO ONCE PRN Hypoglycemia Protocol Protocol Famotidine 20 mg 01/06/18 10:00 01/06/18 10:09 Pepcid PO 20 mg DAILY RIKI Administration Furosemide 40 mg 01/06/18 10:00 01/06/18 10:09 Lasix IVP 40 mg DAILY RIKI Administration Glucagon 0 mg 01/06/18 03:37 Glucagen Diagnostic Kit IM STAT PRN Hypoglycemia Protocol Protocol Dextrose 1,000 mls @ 0 mls/hr 01/06/18 03:37 Dextrose 5% In Water 1000 Ml IV .Q0M PRN Hypoglycemia Protocol Protocol Per Protocol Heparin Sodium/Sodium Chloride 25,000 units in 250 mls @ 5.674 mls/hr 01/06/18 08:17 01/06/18 10:13 Heparin 19537 Units/250ml 1/2 Normal Saline IV 9 units/kg/hr .Q24H PRN 5.674 mls/hr PROTOCOL Administration Protocol 9 UNITS/KG/HR Insulin Aspart 0 unit 01/06/18 04:00 01/06/18 12:00 Novolog SC 1 u Q4 RIKI Administration Protocol Rosuvastatin Calcium 5 mg 01/06/18 22:00 Crestor PO HS RIKI - Patient Studies Lab Studies: Microbiology Studies 01/06/18 07:20 Gram Stain - Final Leg - Right Lab Studies 01/06/18 01/06/18 01/06/18 Range/Units 14:25 14:25 11:41 WBC (4.8-10.8) K/uL RBC (4.40-5.90) Mil/uL Hgb (12.0-18.0) g/dL Hct (35.0-51.0) % MCV (80.0-94.0) fL MCH (27.0-31.0) pg MCHC (33.0-37.0) g/dL RDW (11.5-14.5) % Plt Count (130-400) K/uL MPV (7.2-11.7) fL Neut % (Auto) (50.0-75.0) % Lymph % (Auto) (20.0-40.0) % [place] % (Auto) (0.0-10.0) % Eos % (Auto) (0.0-4.0) % Baso % (Auto) (0.0-2.0) % Neut # (Auto) (1.8-7.0) K/uL Lymph # (Auto) (1.0-4.3) K/uL [place] # (Auto) (0.0-0.8) K/uL Eos # (Auto) (0.0-0.7) K/uL Baso # (Auto) (0.0-0.2) K/uL Neutrophils % (Manual) (50-75) % Band Neutrophils % (0-2) % Lymphocytes % (Manual) (20-40) % Monocytes % (Manual) (0-10) % Platelet Estimate (NORMAL) Polychromasia Hypochromasia (manual) Anisocytosis (manual) Shahrzad Cells PT (9.7-12.2) SECONDS INR APTT (21-34) SECONDS Puncture Site pCO2 (35-45) mm/Hg pO2 (80-100) mm/Hg HCO3 (21-28) mmol/L ABG pH (7.35-7.45) ABG Total CO2 (22-28) mmol/L ABG O2 Saturation (95-98) % ABG Base Excess (-2.0-3.0) mmol/L Kade Test ABG Potassium (3.6-5.2) mmol/L A-a O2 Difference mm/Hg Respiratory Index Glucose (75-110) mg/dl Lactate (0.7-2.1) mmol/L FiO2 % Inspiratory BiPAP Expiratory BiPAP Crit Value Called To Crit Value Called By Crit Value Read Back Blood Gas Notified Time Sodium 139 (132-148) mmol/L Potassium 5.7 H (3.6-5.2) mmol/L Chloride 104 (98-107) mmol/L Carbon Dioxide 21 L (22-30) mmol/L Anion Gap 20 (10-20) BUN 62 H (9-20) mg/dL Creatinine 2.4 H (0.8-1.5) mg/dL Est GFR ( Amer) 33 Est GFR (Non-Af Amer) 27 POC Glucose (mg/dL) (65-110) mg/dL Random Glucose 177 H (75-110) mg/dL Lactic Acid 2.5 H (0.7-2.1) mmol/L Calcium 8.3 L (8.6-10.4) mg/dl Phosphorus (2.5-4.5) mg/dL Magnesium (1.6-2.3) mg/dL Total Bilirubin (0.2-1.3) mg/dL AST (17-59) U/L ALT (21-72) U/L Alkaline Phosphatase (38-126) U/L Troponin I 4.4000 H* (0.00-0.120) ng/mL NT-Pro-B Natriuret Pep (0-900) pg/mL Total Protein (6.3-8.3) g/dL Albumin (3.5-5.0) g/dL Globulin (2.2-3.9) gm/dL Albumin/Globulin Ratio (1.0-2.1) Arterial Blood Potassium (3.6-5.2) mmol/L Urine Color Est[place]ita (YELLOW) Urine Clarity Hazy (Clear) Urine pH 5.0 (5.0-8.0) Ur Specific [place] 1.016 (1.003-1.030) Urine Protein 2+ H (NEGATIVE) mg/dL Urine Glucose (UA) Normal (Normal) mg/dL Urine Ketones Negative (NEGATIVE) mg/dL Urine Blood Negative (NEGATIVE) Urine Nitrate Negative (NEGATIVE) Urine Bilirubin Negative (NEGATIVE) Urine Urobilinogen 4.0 (0.2-1.0) mg/dL Ur Leukocyte Esterase Neg (Negative) Julia/uL Urine WBC (Auto) 4 (0-5) /hpf Urine RBC (Auto) 2 (0-3) /hpf Amorphous Sediment Rare H (<OCC) /ul Urine Bacteria Occ H (<OCC) Urine Opiates Screen (NEGATIVE) Urine Methadone Screen (NEGATIVE) Ur Barbiturates Screen (NEGATIVE) Ur Phencyclidine Scrn (NEGATIVE) Ur Amphetamines Screen (NEGATIVE) U Benzodiazepines Scrn (NEGATIVE) U Oth Cocaine Metabols (NEGATIVE) U Cannabinoids Screen (NEGATIVE) B-Hydroxybutyrate (0.02-0.27) mM 01/06/18 01/06/18 01/06/18 Range/Units 11:41 07:40 07:20 WBC (4.8-10.8) K/uL RBC (4.40-5.90) Mil/uL Hgb (12.0-18.0) g/dL Hct (35.0-51.0) % MCV (80.0-94.0) fL MCH (27.0-31.0) pg MCHC (33.0-37.0) g/dL RDW (11.5-14.5) % Plt Count (130-400) K/uL MPV (7.2-11.7) fL Neut % (Auto) (50.0-75.0) % Lymph % (Auto) (20.0-40.0) % [place] % (Auto) (0.0-10.0) % Eos % (Auto) (0.0-4.0) % Baso % (Auto) (0.0-2.0) % Neut # (Auto) (1.8-7.0) K/uL Lymph # (Auto) (1.0-4.3) K/uL [place] # (Auto) (0.0-0.8) K/uL Eos # (Auto) (0.0-0.7) K/uL Baso # (Auto) (0.0-0.2) K/uL Neutrophils % (Manual) (50-75) % Band Neutrophils % (0-2) % Lymphocytes % (Manual) (20-40) % Monocytes % (Manual) (0-10) % Platelet Estimate (NORMAL) Polychromasia Hypochromasia (manual) Anisocytosis (manual) Shahrzad Cells PT (9.7-12.2) SECONDS INR APTT (21-34) SECONDS Puncture Site pCO2 (35-45) mm/Hg pO2 (80-100) mm/Hg HCO3 (21-28) mmol/L ABG pH (7.35-7.45) ABG Total CO2 (22-28) mmol/L ABG O2 Saturation (95-98) % ABG Base Excess (-2.0-3.0) mmol/L Kade Test ABG Potassium (3.6-5.2) mmol/L A-a O2 Difference mm/Hg Respiratory Index Glucose (75-110) mg/dl Lactate (0.7-2.1) mmol/L FiO2 % Inspiratory BiPAP Expiratory BiPAP Crit Value Called To Crit Value Called By Crit Value Read Back Blood Gas Notified Time Sodium 140 (132-148) mmol/L Potassium 5.6 H (3.6-5.2) mmol/L Chloride 103 (98-107) mmol/L Carbon Dioxide 23 (22-30) mmol/L Anion Gap 20 (10-20) BUN 56 H (9-20) mg/dL Creatinine 2.3 H (0.8-1.5) mg/dL Est GFR ( Amer) 35 Est GFR (Non-Af Amer) 29 POC Glucose (mg/dL) 190 H (65-110) mg/dL Random Glucose 194 H (75-110) mg/dL Lactic Acid (0.7-2.1) mmol/L Calcium 8.7 (8.6-10.4) mg/dl Phosphorus 7.5 H (2.5-4.5) mg/dL Magnesium 1.7 (1.6-2.3) mg/dL Total Bilirubin 1.5 H (0.2-1.3) mg/dL AST 711 H D (17-59) U/L ALT 579 H D (21-72) U/L Alkaline Phosphatase 390 H D (38-126) U/L Troponin I 3.8400 H* (0.00-0.120) ng/mL NT-Pro-B Natriuret Pep (0-900) pg/mL Total Protein 6.5 (6.3-8.3) g/dL Albumin 3.3 L D (3.5-5.0) g/dL Globulin 3.1 (2.2-3.9) gm/dL Albumin/Globulin Ratio 1.1 (1.0-2.1) Arterial Blood Potassium (3.6-5.2) mmol/L Urine Color (YELLOW) Urine Clarity (Clear) Urine pH (5.0-8.0) Ur Specific [place] (1.003-1.030) Urine Protein (NEGATIVE) mg/dL Urine Glucose (UA) (Normal) mg/dL Urine Ketones (NEGATIVE) mg/dL Urine Blood (NEGATIVE) Urine Nitrate (NEGATIVE) Urine Bilirubin (NEGATIVE) Urine Urobilinogen (0.2-1.0) mg/dL Ur Leukocyte Esterase (Negative) Julia/uL Urine WBC (Auto) (0-5) /hpf Urine RBC (Auto) (0-3) /hpf Amorphous Sediment (<OCC) /ul Urine Bacteria (<OCC) Urine Opiates Screen Negative (NEGATIVE) Urine Methadone Screen Negative (NEGATIVE) Ur Barbiturates Screen Negative (NEGATIVE) Ur Phencyclidine Scrn Negative (NEGATIVE) Ur Amphetamines Screen Negative (NEGATIVE) U Benzodiazepines Scrn Negative (NEGATIVE) U Oth Cocaine Metabols Negative (NEGATIVE) U Cannabinoids Screen Negative (NEGATIVE) B-Hydroxybutyrate (0.02-0.27) mM 01/06/18 01/06/18 01/06/18 Range/Units 07:20 07:20 05:14 WBC 8.6 (4.8-10.8) K/uL RBC 3.68 L (4.40-5.90) Mil/uL Hgb 10.7 L (12.0-18.0) g/dL Hct 33.0 L (35.0-51.0) % MCV 89.7 D (80.0-94.0) fL MCH 29.0 (27.0-31.0) pg MCHC 32.3 L (33.0-37.0) g/dL RDW 17.0 H (11.5-14.5) % Plt Count 425 H D (130-400) K/uL MPV 9.3 (7.2-11.7) fL Neut % (Auto) (50.0-75.0) % Lymph % (Auto) (20.0-40.0) % [place] % (Auto) (0.0-10.0) % Eos % (Auto) (0.0-4.0) % Baso % (Auto) (0.0-2.0) % Neut # (Auto) (1.8-7.0) K/uL Lymph # (Auto) (1.0-4.3) K/uL [place] # (Auto) (0.0-0.8) K/uL Eos # (Auto) (0.0-0.7) K/uL Baso # (Auto) (0.0-0.2) K/uL Neutrophils % (Manual) (50-75) % Band Neutrophils % (0-2) % Lymphocytes % (Manual) (20-40) % Monocytes % (Manual) (0-10) % Platelet Estimate (NORMAL) Polychromasia Hypochromasia (manual) Anisocytosis (manual) Beaver Cells PT (9.7-12.2) SECONDS INR APTT (21-34) SECONDS Puncture Site pCO2 (35-45) mm/Hg pO2 (80-100) mm/Hg HCO3 (21-28) mmol/L ABG pH (7.35-7.45) ABG Total CO2 (22-28) mmol/L ABG O2 Saturation (95-98) % ABG Base Excess (-2.0-3.0) mmol/L Kade Test ABG Potassium (3.6-5.2) mmol/L A-a O2 Difference mm/Hg Respiratory Index Glucose (75-110) mg/dl Lactate (0.7-2.1) mmol/L FiO2 % Inspiratory BiPAP Expiratory BiPAP Crit Value Called To Crit Value Called By Crit Value Read Back Blood Gas Notified Time Sodium (132-148) mmol/L Potassium (3.6-5.2) mmol/L Chloride (98-107) mmol/L Carbon Dioxide (22-30) mmol/L Anion Gap (10-20) BUN (9-20) mg/dL Creatinine (0.8-1.5) mg/dL Est GFR ( Amer) Est GFR (Non-Af Amer) POC Glucose (mg/dL) 195 H (65-110) mg/dL Random Glucose (75-110) mg/dL Lactic Acid 2.8 H (0.7-2.1) mmol/L Calcium (8.6-10.4) mg/dl Phosphorus (2.5-4.5) mg/dL Magnesium (1.6-2.3) mg/dL Total Bilirubin (0.2-1.3) mg/dL AST (17-59) U/L ALT (21-72) U/L Alkaline Phosphatase (38-126) U/L Troponin I (0.00-0.120) ng/mL NT-Pro-B Natriuret Pep (0-900) pg/mL Total Protein (6.3-8.3) g/dL Albumin (3.5-5.0) g/dL Globulin (2.2-3.9) gm/dL Albumin/Globulin Ratio (1.0-2.1) Arterial Blood Potassium (3.6-5.2) mmol/L Urine Color (YELLOW) Urine Clarity (Clear) Urine pH (5.0-8.0) Ur Specific [place] (1.003-1.030) Urine Protein (NEGATIVE) mg/dL Urine Glucose (UA) (Normal) mg/dL Urine Ketones (NEGATIVE) mg/dL Urine Blood (NEGATIVE) Urine Nitrate (NEGATIVE) Urine Bilirubin (NEGATIVE) Urine Urobilinogen (0.2-1.0) mg/dL Ur Leukocyte Esterase (Negative) Julia/uL Urine WBC (Auto) (0-5) /hpf Urine RBC (Auto) (0-3) /hpf Amorphous Sediment (<OCC) /ul Urine Bacteria (<OCC) Urine Opiates Screen (NEGATIVE) Urine Methadone Screen (NEGATIVE) Ur Barbiturates Screen (NEGATIVE) Ur Phencyclidine Scrn (NEGATIVE) Ur Amphetamines Screen (NEGATIVE) U Benzodiazepines Scrn (NEGATIVE) U Oth Cocaine Metabols (NEGATIVE) U Cannabinoids Screen (NEGATIVE) B-Hydroxybutyrate (0.02-0.27) mM 01/05/18 01/05/18 01/05/18 Range/Units 22:42 20:40 20:09 WBC (4.8-10.8) K/uL RBC (4.40-5.90) Mil/uL Hgb (12.0-18.0) g/dL Hct (35.0-51.0) % MCV (80.0-94.0) fL MCH (27.0-31.0) pg MCHC (33.0-37.0) g/dL RDW (11.5-14.5) % Plt Count (130-400) K/uL MPV (7.2-11.7) fL Neut % (Auto) (50.0-75.0) % Lymph % (Auto) (20.0-40.0) % [place] % (Auto) (0.0-10.0) % Eos % (Auto) (0.0-4.0) % Baso % (Auto) (0.0-2.0) % Neut # (Auto) (1.8-7.0) K/uL Lymph # (Auto) (1.0-4.3) K/uL [place] # (Auto) (0.0-0.8) K/uL Eos # (Auto) (0.0-0.7) K/uL Baso # (Auto) (0.0-0.2) K/uL Neutrophils % (Manual) (50-75) % Band Neutrophils % (0-2) % Lymphocytes % (Manual) (20-40) % Monocytes % (Manual) (0-10) % Platelet Estimate (NORMAL) Polychromasia Hypochromasia (manual) Anisocytosis (manual) Shahrzad Cells PT (9.7-12.2) SECONDS INR APTT (21-34) SECONDS Puncture Site Lba pCO2 26 L (35-45) mm/Hg pO2 123 H (80-100) mm/Hg HCO3 16.8 L (21-28) mmol/L ABG pH 7.33 L (7.35-7.45) ABG Total CO2 14.5 L (22-28) mmol/L ABG O2 Saturation 98.9 H (95-98) % ABG Base Excess -10.5 L (-2.0-3.0) mmol/L Kade Test Pos ABG Potassium 4.1 (3.6-5.2) mmol/L A-a O2 Difference 130.0 mm/Hg Respiratory Index 1.1 Glucose 161 H (75-110) mg/dl Lactate 5.0 H* (0.7-2.1) mmol/L FiO2 40.0 % Inspiratory BiPAP 18 Expiratory BiPAP 9 Crit Value Called To Dr anderson Crit Value Called By [facility] Crit Value Read Back Y Blood Gas Notified Time 2045 Sodium 139.0 143 (132-148) mmol/L Potassium 5.5 H (3.6-5.2) mmol/L Chloride 110.0 H 104 (98-107) mmol/L Carbon Dioxide 15 L (22-30) mmol/L Anion Gap 30 H (10-20) BUN 46 H (9-20) mg/dL Creatinine 1.9 H (0.8-1.5) mg/dL Est GFR ( Amer) 43 Est GFR (Non-Af Amer) 36 POC Glucose (mg/dL) (65-110) mg/dL Random Glucose 156 H (75-110) mg/dL Lactic Acid 4.8 H* (0.7-2.1) mmol/L Calcium 9.2 (8.6-10.4) mg/dl Phosphorus (2.5-4.5) mg/dL Magnesium 1.9 (1.6-2.3) mg/dL Total Bilirubin 3.0 H (0.2-1.3) mg/dL AST 469 H D (17-59) U/L ALT 388 H D (21-72) U/L Alkaline Phosphatase 534 H D (38-126) U/L Troponin I 3.9500 H* (0.00-0.120) ng/mL NT-Pro-B Natriuret Pep 8390 H (0-900) pg/mL Total Protein 8.3 (6.3-8.3) g/dL Albumin 4.3 (3.5-5.0) g/dL Globulin 4.0 H (2.2-3.9) gm/dL Albumin/Globulin Ratio 1.1 (1.0-2.1) Arterial Blood Potassium 4.1 (3.6-5.2) mmol/L Urine Color (YELLOW) Urine Clarity (Clear) Urine pH (5.0-8.0) Ur Specific [place] (1.003-1.030) Urine Protein (NEGATIVE) mg/dL Urine Glucose (UA) (Normal) mg/dL Urine Ketones (NEGATIVE) mg/dL Urine Blood (NEGATIVE) Urine Nitrate (NEGATIVE) Urine Bilirubin (NEGATIVE) Urine Urobilinogen (0.2-1.0) mg/dL Ur Leukocyte Esterase (Negative) Julia/uL Urine WBC (Auto) (0-5) /hpf Urine RBC (Auto) (0-3) /hpf Amorphous Sediment (<OCC) /ul Urine Bacteria (<OCC) Urine Opiates Screen (NEGATIVE) Urine Methadone Screen (NEGATIVE) Ur Barbiturates Screen (NEGATIVE) Ur Phencyclidine Scrn (NEGATIVE) Ur Amphetamines Screen (NEGATIVE) U Benzodiazepines Scrn (NEGATIVE) U Oth Cocaine Metabols (NEGATIVE) U Cannabinoids Screen (NEGATIVE) B-Hydroxybutyrate 0.24 (0.02-0.27) mM 01/05/18 01/05/18 Range/Units 20:09 20:09 WBC 13.7 H (4.8-10.8) K/uL RBC 4.34 L (4.40-5.90) Mil/uL Hgb 12.4 (12.0-18.0) g/dL Hct 40.1 (35.0-51.0) % MCV 92.6 D (80.0-94.0) fL MCH 28.7 (27.0-31.0) pg MCHC 31.0 L (33.0-37.0) g/dL RDW 17.7 H (11.5-14.5) % Plt Count 590 H D (130-400) K/uL MPV 8.8 (7.2-11.7) fL Neut % (Auto) 87.4 H (50.0-75.0) % Lymph % (Auto) 6.6 L (20.0-40.0) % [place] % (Auto) 5.3 (0.0-10.0) % Eos % (Auto) 0.2 (0.0-4.0) % Baso % (Auto) 0.5 (0.0-2.0) % Neut # (Auto) 12.0 H (1.8-7.0) K/uL Lymph # (Auto) 0.9 L (1.0-4.3) K/uL [place] # (Auto) 0.7 (0.0-0.8) K/uL Eos # (Auto) 0.0 (0.0-0.7) K/uL Baso # (Auto) 0.1 (0.0-0.2) K/uL Neutrophils % (Manual) 87 H (50-75) % Band Neutrophils % 1 (0-2) % Lymphocytes % (Manual) 8 L (20-40) % Monocytes % (Manual) 4 (0-10) % Platelet Estimate Increased H (NORMAL) Polychromasia Slight Hypochromasia (manual) Slight Anisocytosis (manual) Slight [place]aver Cells Slight PT 16.0 H (9.7-12.2) SECONDS INR 1.5 APTT 31 (21-34) SECONDS Puncture Site pCO2 (35-45) mm/Hg pO2 (80-100) mm/Hg HCO3 (21-28) mmol/L ABG pH (7.35-7.45) ABG Total CO2 (22-28) mmol/L ABG O2 Saturation (95-98) % ABG Base Excess (-2.0-3.0) mmol/L Kade Test ABG Potassium (3.6-5.2) mmol/L A-a O2 Difference mm/Hg Respiratory Index Glucose (75-110) mg/dl Lactate (0.7-2.1) mmol/L FiO2 % Inspiratory BiPAP Expiratory BiPAP Crit Value Called To Crit Value Called By Crit Value Read Back Blood Gas Notified Time Sodium (132-148) mmol/L Potassium (3.6-5.2) mmol/L Chloride (98-107) mmol/L Carbon Dioxide (22-30) mmol/L Anion Gap (10-20) BUN (9-20) mg/dL Creatinine (0.8-1.5) mg/dL Est GFR ( Amer) Est GFR (Non-Af Amer) POC Glucose (mg/dL) (65-110) mg/dL Random Glucose (75-110) mg/dL Lactic Acid (0.7-2.1) mmol/L Calcium (8.6-10.4) mg/dl Phosphorus (2.5-4.5) mg/dL Magnesium (1.6-2.3) mg/dL Total Bilirubin (0.2-1.3) mg/dL AST (17-59) U/L ALT (21-72) U/L Alkaline Phosphatase (38-126) U/L Troponin I (0.00-0.120) ng/mL NT-Pro-B Natriuret Pep (0-900) pg/mL Total Protein (6.3-8.3) g/dL Albumin (3.5-5.0) g/dL Globulin (2.2-3.9) gm/dL Albumin/Globulin Ratio (1.0-2.1) Arterial Blood Potassium (3.6-5.2) mmol/L Urine Color (YELLOW) Urine Clarity (Clear) Urine pH (5.0-8.0) Ur Specific [place] (1.003-1.030) Urine Protein (NEGATIVE) mg/dL Urine Glucose (UA) (Normal) mg/dL Urine Ketones (NEGATIVE) mg/dL Urine Blood (NEGATIVE) Urine Nitrate (NEGATIVE) Urine Bilirubin (NEGATIVE) Urine Urobilinogen (0.2-1.0) mg/dL Ur Leukocyte Esterase (Negative) Julia/uL Urine WBC (Auto) (0-5) /hpf Urine RBC (Auto) (0-3) /hpf Amorphous Sediment (<OCC) /ul Urine Bacteria (<OCC) Urine Opiates Screen (NEGATIVE) Urine Methadone Screen (NEGATIVE) Ur Barbiturates Screen (NEGATIVE) Ur Phencyclidine Scrn (NEGATIVE) Ur Amphetamines Screen (NEGATIVE) U Benzodiazepines Scrn (NEGATIVE) U Oth Cocaine Metabols (NEGATIVE) U Cannabinoids Screen (NEGATIVE) B-Hydroxybutyrate (0.02-0.27) mM Laboratory Results - last 24 hr 01/05/18 01/05/18 01/05/18 20:09 20:09 20:09 WBC 13.7 H RBC 4.34 L Hgb 12.4 Hct 40.1 MCV 92.6 D MCH 28.7 MCHC 31.0 L RDW 17.7 H Plt Count 590 H D MPV 8.8 Neut % (Auto) 87.4 H Lymph % (Auto) 6.6 L Dougherty % (Auto) 5.3 Eos % (Auto) 0.2 Baso % (Auto) 0.5 Neut # (Auto) 12.0 H Lymph # (Auto) 0.9 L Dougherty # (Auto) 0.7 Eos # (Auto) 0.0 Baso # (Auto) 0.1 Neutrophils % (Manual) 87 H Band Neutrophils % 1 Lymphocytes % (Manual) 8 L Monocytes % (Manual) 4 Platelet Estimate Increased H Polychromasia Slight Hypochromasia (manual) Slight Anisocytosis (manual) Slight Beaver Cells Slight PT 16.0 H INR 1.5 APTT 31 Puncture Site pCO2 pO2 HCO3 ABG pH ABG Total CO2 ABG O2 Saturation ABG Base Excess Kade Test ABG Potassium A-a O2 Difference Respiratory Index Glucose Lactate FiO2 Inspiratory BiPAP Expiratory BiPAP Crit Value Called To Crit Value Called By Crit Value Read Back Blood Gas Notified Time Sodium 143 Potassium 5.5 H Chloride 104 Carbon Dioxide 15 L Anion Gap 30 H BUN 46 H Creatinine 1.9 H Est GFR ( Amer) 43 Est GFR (Non-Af Amer) 36 POC Glucose (mg/dL) Random Glucose 156 H Lactic Acid Calcium 9.2 Phosphorus Magnesium 1.9 Total Bilirubin 3.0 H AST 469 H D ALT 388 H D Alkaline Phosphatase 534 H D Troponin I 3.9500 H* NT-Pro-B Natriuret Pep 8390 H Total Protein 8.3 Albumin 4.3 Globulin 4.0 H Albumin/Globulin Ratio 1.1 Arterial Blood Potassium Urine Color Urine Clarity Urine pH Ur Specific [place] Urine Protein Urine Glucose (UA) Urine Ketones Urine Blood Urine Nitrate Urine Bilirubin Urine Urobilinogen Ur Leukocyte Esterase Urine WBC (Auto) Urine RBC (Auto) Amorphous Sediment Urine Bacteria Urine Opiates Screen Urine Methadone Screen Ur Barbiturates Screen Ur Phencyclidine Scrn Ur Amphetamines Screen U Benzodiazepines Scrn U Oth Cocaine Metabols U Cannabinoids Screen B-Hydroxybutyrate 0.24 01/05/18 01/05/18 01/06/18 20:40 22:42 05:14 WBC RBC Hgb Hct MCV MCH MCHC RDW Plt Count MPV Neut % (Auto) Lymph % (Auto) Dougherty % (Auto) Eos % (Auto) Baso % (Auto) Neut # (Auto) Lymph # (Auto) Dougherty # (Auto) Eos # (Auto) Baso # (Auto) Neutrophils % (Manual) Band Neutrophils % Lymphocytes % (Manual) Monocytes % (Manual) Platelet Estimate Polychromasia Hypochromasia (manual) Anisocytosis (manual) Shahrzad Cells PT INR APTT Puncture Site Lba pCO2 26 L pO2 123 H HCO3 16.8 L ABG pH 7.33 L ABG Total CO2 14.5 L ABG O2 Saturation 98.9 H ABG Base Excess -10.5 L Kade Test Pos ABG Potassium 4.1 A-a O2 Difference 130.0 Respiratory Index 1.1 Glucose 161 H Lactate 5.0 H* FiO2 40.0 Inspiratory BiPAP 18 Expiratory BiPAP 9 Crit Value Called To Dr anderson Crit Value Called By [facility] Crit Value Read Back Y Blood Gas Notified Time 2045 Sodium 139.0 Potassium Chloride 110.0 H Carbon Dioxide Anion Gap BUN Creatinine Est GFR ( Amer) Est GFR (Non-Af Amer) POC Glucose (mg/dL) 195 H Random Glucose Lactic Acid 4.8 H* Calcium Phosphorus Magnesium Total Bilirubin AST ALT Alkaline Phosphatase Troponin I NT-Pro-B Natriuret Pep Total Protein Albumin Globulin Albumin/Globulin Ratio Arterial Blood Potassium 4.1 Urine Color Urine Clarity Urine pH Ur Specific [place] Urine Protein Urine Glucose (UA) Urine Ketones Urine Blood Urine Nitrate Urine Bilirubin Urine Urobilinogen Ur Leukocyte Esterase Urine WBC (Auto) Urine RBC (Auto) Amorphous Sediment Urine Bacteria Urine Opiates Screen Urine Methadone Screen Ur Barbiturates Screen Ur Phencyclidine Scrn Ur Amphetamines Screen U Benzodiazepines Scrn U Oth Cocaine Metabols U Cannabinoids Screen B-Hydroxybutyrate 01/06/18 01/06/18 01/06/18 07:20 07:20 07:20 WBC 8.6 RBC 3.68 L Hgb 10.7 L Hct 33.0 L MCV 89.7 D MCH 29.0 MCHC 32.3 L RDW 17.0 H Plt Count 425 H D MPV 9.3 Neut % (Auto) Lymph % (Auto) Dougherty % (Auto) Eos % (Auto) Baso % (Auto) Neut # (Auto) Lymph # (Auto) Dougherty # (Auto) Eos # (Auto) Baso # (Auto) Neutrophils % (Manual) Band Neutrophils % Lymphocytes % (Manual) Monocytes % (Manual) Platelet Estimate Polychromasia Hypochromasia (manual) Anisocytosis (manual) Shahrzad Cells PT INR APTT Puncture Site pCO2 pO2 HCO3 ABG pH ABG Total CO2 ABG O2 Saturation ABG Base Excess Kade Test ABG Potassium A-a O2 Difference Respiratory Index Glucose Lactate FiO2 Inspiratory BiPAP Expiratory BiPAP Crit Value Called To Crit Value Called By Crit Value Read Back Blood Gas Notified Time Sodium 140 Potassium 5.6 H Chloride 103 Carbon Dioxide 23 Anion Gap 20 BUN 56 H Creatinine 2.3 H Est GFR ( Amer) 35 Est GFR (Non-Af Amer) 29 POC Glucose (mg/dL) Random Glucose 194 H Lactic Acid 2.8 H Calcium 8.7 Phosphorus 7.5 H Magnesium 1.7 Total Bilirubin 1.5 H AST 711 H D ALT 579 H D Alkaline Phosphatase 390 H D Troponin I 3.8400 H* NT-Pro-B Natriuret Pep Total Protein 6.5 Albumin 3.3 L D Globulin 3.1 Albumin/Globulin Ratio 1.1 Arterial Blood Potassium Urine Color Urine Clarity Urine pH Ur Specific [place] Urine Protein Urine Glucose (UA) Urine Ketones Urine Blood Urine Nitrate Urine Bilirubin Urine Urobilinogen Ur Leukocyte Esterase Urine WBC (Auto) Urine RBC (Auto) Amorphous Sediment Urine Bacteria Urine Opiates Screen Urine Methadone Screen Ur Barbiturates Screen Ur Phencyclidine Scrn Ur Amphetamines Screen U Benzodiazepines Scrn U Oth Cocaine Metabols U Cannabinoids Screen B-Hydroxybutyrate 01/06/18 01/06/18 01/06/18 07:40 11:41 11:41 WBC RBC Hgb Hct MCV MCH MCHC RDW Plt Count MPV Neut % (Auto) Lymph % (Auto) Dougherty % (Auto) Eos % (Auto) Baso % (Auto) Neut # (Auto) Lymph # (Auto) Dougherty # (Auto) Eos # (Auto) Baso # (Auto) Neutrophils % (Manual) Band Neutrophils % Lymphocytes % (Manual) Monocytes % (Manual) Platelet Estimate Polychromasia Hypochromasia (manual) Anisocytosis (manual) Shahrzad Cells PT INR APTT Puncture Site pCO2 pO2 HCO3 ABG pH ABG Total CO2 ABG O2 Saturation ABG Base Excess Kade Test ABG Potassium A-a O2 Difference Respiratory Index Glucose Lactate FiO2 Inspiratory BiPAP Expiratory BiPAP Crit Value Called To Crit Value Called By Crit Value Read Back Blood Gas Notified Time Sodium Potassium Chloride Carbon Dioxide Anion Gap BUN Creatinine Est GFR ( Amer) Est GFR (Non-Af Amer) POC Glucose (mg/dL) 190 H Random Glucose Lactic Acid Calcium Phosphorus Magnesium Total Bilirubin AST ALT Alkaline Phosphatase Troponin I NT-Pro-B Natriuret Pep Total Protein Albumin Globulin Albumin/Globulin Ratio Arterial Blood Potassium Urine Color Estelita Urine Clarity Hazy Urine pH 5.0 Ur Specific [place] 1.016 Urine Protein 2+ H Urine Glucose (UA) Normal Urine Ketones Negative Urine Blood Negative Urine Nitrate Negative Urine Bilirubin Negative Urine Urobilinogen 4.0 Ur Leukocyte Esterase Neg Urine WBC (Auto) 4 Urine RBC (Auto) 2 Amorphous Sediment Rare H Urine Bacteria Occ H Urine Opiates Screen Negative Urine Methadone Screen Negative Ur Barbiturates Screen Negative Ur Phencyclidine Scrn Negative Ur Amphetamines Screen Negative U Benzodiazepines Scrn Negative U Oth Cocaine Metabols Negative U Cannabinoids Screen Negative B-Hydroxybutyrate 01/06/18 01/06/18 14:25 14:25 WBC RBC Hgb Hct MCV MCH MCHC RDW Plt Count MPV Neut % (Auto) Lymph % (Auto) Dougherty % (Auto) Eos % (Auto) Baso % (Auto) Neut # (Auto) Lymph # (Auto) Dougherty # (Auto) Eos # (Auto) Baso # (Auto) Neutrophils % (Manual) Band Neutrophils % Lymphocytes % (Manual) Monocytes % (Manual) Platelet Estimate Polychromasia Hypochromasia (manual) Anisocytosis (manual) [place] Cells PT INR APTT Puncture Site pCO2 pO2 HCO3 ABG pH ABG Total CO2 ABG O2 Saturation ABG Base Excess Kade Test ABG Potassium A-a O2 Difference Respiratory Index Glucose Lactate FiO2 Inspiratory BiPAP Expiratory BiPAP Crit Value Called To Crit Value Called By Crit Value Read Back Blood Gas Notified Time Sodium 139 Potassium 5.7 H Chloride 104 Carbon Dioxide 21 L Anion Gap 20 BUN 62 H Creatinine 2.4 H Est GFR ( Amer) 33 Est GFR (Non-Af Amer) 27 POC Glucose (mg/dL) Random Glucose 177 H Lactic Acid 2.5 H Calcium 8.3 L Phosphorus Magnesium Total Bilirubin AST ALT Alkaline Phosphatase Troponin I 4.4000 H* NT-Pro-B Natriuret Pep Total Protein Albumin Globulin Albumin/Globulin Ratio Arterial Blood Potassium Urine Color Urine Clarity Urine pH Ur Specific [place] Urine Protein Urine Glucose (UA) Urine Ketones Urine Blood Urine Nitrate Urine Bilirubin Urine Urobilinogen Ur Leukocyte Esterase Urine WBC (Auto) Urine RBC (Auto) Amorphous Sediment Urine Bacteria Urine Opiates Screen Urine Methadone Screen Ur Barbiturates Screen Ur Phencyclidine Scrn Ur Amphetamines Screen U Benzodiazepines Scrn U Oth Cocaine Metabols U Cannabinoids Screen B-Hydroxybutyrate EKG/Cardiology Studies: Cardiology / EKG Studies 01/05/18 19:53 EKG [ELECTROCARDIOGRAM] Stat Comment: Mode Of Transportation: BED Reason For Exam: cp 01/05/18 20:03 ELECTROCARDIOGRAM Stat Comment: Mode Of Transportation: BED Reason For Exam: SOB 01/06/18 08:03 ELECTROCARDIOGRAM Routine Comment: Mode Of Transportation: Reason For Exam: f/u, 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, madan and poss AV block 01/06/18 10:04 ELECTROCARDIOGRAM Routine Comment: Mode Of Transportation: Reason For Exam: reassess rhythm Critical Care Progress Note - Nutrition Nutrition: Nutrition Category Date Time Status Renal Diet [DIET] Diets 01/06/18 Breakfast Active Attending/Attestation - Attestation I have personally seen and examined this patient.: Yes I have fully participated in the care of the patient.: Yes I have reviewed all pertinent clinical information: Yes Notes (Text): 01/06/18 15:38 I have seen and examined the patient. Medical records, lab studies, and imaging were reviewed by me and a management plan was formulated on multidisciplinary rounds with resident Dr. Vital. I agree with their documented assessment and plan. Patient is in acute exacerbation of chronic systolic heart failure with pulmonary edema, in acute respiratory failure with hypoxia requiring high flow oxygen (did not tolerate BIPAP). Patient is not diuresing with medication, will need to initiate dialysis for severe cardiorenal disease, stage 5 CKD. Critical Care Time 35 minutes. Multi-disciplinary rounds were performed with house staff, nursing, speech therapy, respiratory therapy, pharmacy and nutrition with integrated input from the primary team/attending and other consulting services. The documented time is cumulative and includes review of patient data/exams/labs/chart review and examination of the patient on rounds and throughout the day; time is exclusive of any procedures or teaching time.
[2018-01-06 14:42] LABS: CALCIUM 8.3 mg/dl (8.6-10.4)
[2018-01-06 14:56] LABS: TROPONIN I 4.4 ng/mL (0.00-0.120)
--- NOTE | 2018-01-06 16:41 | PCM.PROC ---
<Feliberto Vital - Last Filed: 01/06/18 16:39> Procedures Attestation:: I certify that I have explained the specified Operation(s) or Procedure(s), risks, benefits and reasonable alternatives to the Patient and/or other person responsible. The opportunity was given to ask questions and all questions answered - Central Line Placement Right Femoral Hemodialysis Access Aseptic technique was employed throughout the procedure: Hand Hygiene done prior to procedure, Full sterile barriers (mask, hair cover, sterile gown, sterile gloves), Full body sterile drape, Chloraprep Antiseptic: 2 minute prep for Femoral Pt. Placed on Pulse Ox Monitor: Yes Central Line Prep: Chlorhexidine-Alcohol Combination Local Anesthesia Used: Lidocaine 1% Amount of Anesthesia Used (mls): 3 Ultrasound Used for Placement: Yes Central Line Lumen Inserted: triple Central Line Length: 30 cm Post Procedure: Sutured in Place, Good Blood Return, All Ports Aspirated, Flushed, Capped, Sterile Dressing Applied Secured by: Suture Post procedure dressing: Clear vapor permeable, Chlorhexidine disc (Biopatch) Post Procedure X-Ray: No Patient Tolerated Procedure: Well, No Complications Immediate Complications: None Additional Comments: Line placed by attending, Dr. Lynch Good flush all ports Blood easily drawn by nursing post-placement for testing <Amor Lynch - Last Filed: 01/06/18 16:54> Attending/Attestation - Attestation I have personally seen and examined this patient.: Yes I have fully participated in the care of the patient.: Yes I have reviewed all pertinent clinical information, including history, physical exam and plan: Yes Notes (Text): 01/06/18 16:53 procedure was performed by me with no complications, patient tolerated procedure well.
--- NOTE | 2018-01-06 16:55 | RAD ---
Date of service: 01/05/2018 PROCEDURE: CHEST RADIOGRAPH, 1 VIEW HISTORY: SOB COMPARISON: Comparison chest dated 11/25/2017. FINDINGS: LUNGS: Poor inspiration with low lung volumes and crowded bronchovascular markings right lung base with what probably represents atelectasis and/or infiltrate with right-sided effusion. Left lower lung opacity may represent some combination of atelectasis/infiltrate and moderate-sized effusion.. Rule out underlying developing or chronic compensated pulmonary venous congestion PLEURA: As above. No apparent pneumothorax CARDIOVASCULAR: Cardiomegaly. Sternotomy wires again noted the OSSEOUS STRUCTURES: No significant abnormalities. VISUALIZED UPPER ABDOMEN: Normal. OTHER FINDINGS: None. IMPRESSION: Poor inspiration with low lung volumes and crowded bronchovascular markings right lung base with what probably represents atelectasis and/or infiltrate with right-sided effusion. Left lower lung opacity may represent some combination of atelectasis/infiltrate and moderate-sized effusion. Rule out underlying developing or chronic compensated pulmonary venous congestion
--- NOTE | 2018-01-06 16:56 | RAD ---
Date of service: 01/06/2018 HISTORY: f/u, CHF COMPARISON: No prior. FINDINGS: LUNGS: Diffuse pulmonary venous congestion with bilateral lower lobe alveolar-type infiltrates. Bilateral effusions left larger than right PLEURA: No significant pleural effusion identified, no pneumothorax apparent. CARDIOVASCULAR: Heart size difficult to assess due to silhouetting. Sternotomy wires and CABG clips again noted OSSEOUS STRUCTURES: No significant abnormalities. VISUALIZED UPPER ABDOMEN: Normal. OTHER FINDINGS: None. IMPRESSION: Diffuse pulmonary venous congestion with bilateral lower lobe alveolar-type infiltrates. Bilateral effusions left larger than right
--- NOTE | 2018-01-06 17:28 | US ---
Date of service: 01/06/2018 HISTORY: eval RUQ US and kidneys fo Medical renal disease COMPARISON: None. TECHNIQUE: Sonographic evaluation of the abdomen. FINDINGS: LIVER: Measures 16.0 cm. Hepatopedal blood flow. Fatty infiltration manifest ultrasonographically as increased echogenicity of the liver parenchyma. Nodular contour to the liver likely reflecting hepatic cirrhosis. Right upper quadrant ascites GALLBLADDER: Contracted gallbladder accentuating thickening of the wall of the gallbladder. Sludge identified. No gallstones apparent. COMMON BILE DUCT: Measures 3.6 mm. No stones. No dilatation. PANCREAS: Unremarkable as visualized. No mass. No ductal dilatation. RIGHT KIDNEY: Measures 6.7 x 12.2cm. Normal echogenicity. No calculus, mass, or hydronephrosis. LEFT KIDNEY: Measures 5.7 x 12.5cm. Normal echogenicity. No calculus, mass, or hydronephrosis. SPLEEN: Normal in size and contour. No mass. AORTA: No aneurysmal dilatation. IVC: Unremarkable. OTHER FINDINGS: In addition to right upper quadrant ascites, right pleural effusion identified. IMPRESSION: Cirrhotic appearing liver without focal abnormality. Incompletely visualized low volume ascites. Right pleural effusion.
--- NOTE | 2018-01-06 19:22 | CARD ---
APPROVED REPORT Date of service: 01/06/2018 EXAM: Two-dimensional and M-mode echocardiogram with Doppler and color Doppler. Other Information Quality : Technically LimitedRhythm : INDICATION EVALUATION OF THE MITRAL REGUR RISK FACTORS Hyperlipidemia 2D DIMENSIONS IVSd1.2 (0.7-1.1cm)Aortic Root (2D)3.2 (2.0-3.7cm) LVDd3.2 (3.9-5.9cm)LVOT Diameter1.9 (1.8-2.4cm) PWd1.3 (0.7-1.1cm)LVDs2.7 (2.5-4.0cm) FS (%) 16.1 %LVEF (%)34.9 (>50%) M-Mode DIMENSIONS Left Atrium (MM)4.72 (2.5-4.0cm)Aortic Root2.89 (2.2-3.7cm) Aortic Cusp Exc.2.07 (1.5-2.0cm) Mitral Valve MV E Jpjavlst498.4cm/sMV A Xecpbnii35.4cm/sMV EYA50tc E/A ratio4.7MVA (PHT)5.30cm2 TDI E/Lateral E'0.0E/Medial E'0.0 Pulmonary Valve PV Peak Dihqnrbe88.8cm/sPV Peak Grad.1mmHg Tricuspid Valve TR Peak Bzkdiskq989xq/sTR Peak Gr.[id number] LEFT VENTRICLE The left ventricle is normal size. There is normal left ventricular wall thickness. The systolic function is moderately to severely impaired. There is a flattened septum No left ventricle thrombus noted on this study. RIGHT VENTRICLE The right ventricle is mildly dilated. There is normal right ventricular wall thickness. The right ventricular systolic function is normal. ATRIA The left atrium is moderately dilated. The right atrium is moderately dilated. AORTIC VALVE The aortic valve is mildly thickened. No aortic regurgitation is present. There is no aortic valvular stenosis. MITRAL VALVE The mitral valve is mildly thickened. There is no mitral valve stenosis. Mitral regurgitation is mild. TRICUSPID VALVE The tricuspid valve is normal in structure. There is mild tricuspid regurgitation. GREAT VESSELS The aortic root is normal in size. The IVC collapses <50% with inspiration. <Conclusion> The left ventricle is normal size. There is normal left ventricular wall thickness. The systolic function is moderately to severely impaired. There is a flattened septum Mitral regurgitation is mild. There is mild tricuspid regurgitation.
--- NOTE | 2018-01-07 03:04 | CON ---
DATE: 01/06/2018 HISTORY OF PRESENT ILLNESS: The patient is a 67-year-old male with past medical history of CAD status post CABG last month, diabetes, hypertension; presented to ED with 3 days of dyspnea. Nephrology being consulted for acute kidney injury. The patient presented last month with vague symptoms, found to have EKG showing inferior wall Q-waves suggestive of recent inferior wall WI. Soon after presentation, the patient started to decompensate with signs of cardiogenic shock and was therefore taken to cardiac cath, which showed multivessel disease and the patient was transferred to [facility], where he underwent CABG. Hospital course at [place] is not currently available. The patient reports being discharged a few weeks ago. Reports feeling well, but developing dyspnea and increased leg swelling over the past few days. He had otherwise been eating well. Denies any change in urination. Denies any nausea, vomiting or diarrhea. Reports taking all of his medications regularly. PAST MEDICAL HISTORY: As above. SOCIAL HISTORY: Denies ever smoking. Remote cocaine use. FAMILY HISTORY: Denies any kidney disease in family. REVIEW OF SYSTEMS: CONSTITUTIONAL: As per HPI. HEENT: Denies any visual changes. No dysphagia. RESPIRATORY: Increased dyspnea. CARDIOVASCULAR: Denies chest pains or palpitations. GI: No nausea, vomiting or diarrhea. : No dysuria. Good urinary stream. MUSCULOSKELETAL: Denies any arthralgias or back pain. Does not use any pain medications. SKIN: Denies any pruritus or rash. NEUROLOGIC: Denies any dizziness or headaches. PHYSICAL EXAMINATION: VITAL SIGNS: This afternoon, blood pressure 97/61, heart rate is 66, respirations 26, temperature 97.5, O2 sat 98% on high flow oxygen. GENERAL: No distress. Able to converse coherently, although is tachypneic. HEENT: Moist mucous membranes. Nonicteric. No cervical lymphadenopathy. Unable to access JVD due to tachypnea. RESPIRATORY: Decreased breath sounds at bilateral bases. Tachypnea. CARDIOVASCULAR: Heart sounds S1, S2 normal. Irregular rate. No murmurs. No gallops. No rubs. GASTROINTESTINAL: Abdomen is soft, nontender, nondistended. GENITOURINARY: No bladder distention. Anne in place. EXTREMITIES: 3+ bilateral leg edema extending to lower abdominal wall and back. NEUROLOGIC: No resting tremor. No asterixis of outstretched hands. SKIN: Warm. Distal feet cool to touch. No cyanosis. PSYCHIATRIC: Normal mood. Normal affect. LABORATORY DATA: This morning CBC; WBC 13.7, hemoglobin 12.4, hematocrit 40.1, platelets 590. Chemistry panel; sodium 140, potassium 5.6, chloride 103, bicarb 23, BUN 56, creatinine 2.3. Glucose 194, calcium 8.7, phosphorous 7.5, magnesium 1.7, T-bili 1.5. AST 711, ALT 579, alk phos 390. Troponin 3.84, albumin 3.3. UA showing 2+ protein. Chest x-ray directly visualized showing vascular congestion. Renal ultrasound, large sized bilateral kidneys, no hydronephrosis. ASSESSMENT AND PLAN: 1. Acute kidney injury, oliguric, renal failure in the settings of recent coronary revascularization and now with acute decompensated congestive heart failure. No response to IV Lasix thus far. The patient with low normal blood pressure and signs of end-organ failure with rising transaminases. The patient also has severe lactic acidosis, which has improved. At this point, the patient needs volume removal to avoid further respiratory compromise and further decompensation of congestive heart failure. If no response to high dose Lasix 120 mg IV push, we will initiate hemodialysis this evening on 2 K, 2.5 calcium, 34 bicarb dialysate with ultrafiltration goals of 2 liters over 3 hours. We will plan on dialyzing again tomorrow. 2. Acute decompensated systolic congestive heart failure. The patient with respiratory failure, acute. May benefit from inotropic support. However, primary team, CCM team, Cardiology concerned about risking further ischemia with inotropic support. If feasible, recommend start low-dose milrinone at 0.125 mcg/kg. 3. Hyperkalemia in the setting of acute renal failure. No improvement with Kayexalate. Will benefit from hemodialysis. 4. Chronic kidney disease. 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 Critical care time spent evaluating patient and discussing with primary team/CCM team, greater than 35 minutes. Thank you for this referral. We will be following closely. Maynor Powers MD
[2018-01-07] MEDS: (Novolog) Insulin Aspart, Recombinant 100 u/ml 10 ml vial SC SCH ×5 (04:00→18:31)
[2018-01-07 06:48] LABS: ALB/GLOB RATIO 1.1 (1.0-2.1); ALBUMIN 3.3 g/dL (3.5-5.0); CALCIUM 8.3 mg/dl (8.6-10.4)
[2018-01-07 06:53] LABS: COMPLEMENT C4 23.7 mg/dL (14.0-44.0)
--- NOTE | 2018-01-07 07:09 | CP.CCUPN ---
<SbbeatrizAri P - Last Filed: 01/07/18 16:00> CCU Objective - Vital Signs / Intake & Output Vital Signs (Last 4 hours): Vital Signs Temp Pulse Resp BP Pulse Ox 01/07/18 15:42 97.2 F L 01/07/18 15:35 64 18 109/67 97 01/07/18 15:20 72 22 102/63 97 01/07/18 15:06 72 26 H 117/72 96 01/07/18 15:00 71 23 84 L 01/07/18 14:50 72 22 115/74 01/07/18 14:35 59 L 22 104/59 L 01/07/18 14:20 65 19 97/61 L 01/07/18 14:06 69 21 89/57 L 90 L 01/07/18 14:00 76 24 92 L 01/07/18 13:52 22 01/07/18 13:50 58 L 16 88/55 L 96 01/07/18 13:37 56 L 16 89/46 L 95 01/07/18 13:05 60 20 91/54 L 96 01/07/18 13:00 53 L 19 01/07/18 12:50 60 17 95/59 L 01/07/18 12:36 63 22 101/55 L 94 L 01/07/18 12:20 73 22 115/66 95 01/07/18 12:05 71 15 121/69 Intake and Output (Last 8hrs): Intake & Output 01/07/18 01/07/18 01/07/18 06:59 14:59 22:59 Intake Total 55.2 689.8 8.2 Output Total 70 110 30 Balance -14.8 579.8 -21.8 Weight 170 lb 0.3 oz Intake: IV 155 Intake, IV Amount 55.2 54.8 8.2 Right Antecubital 55.2 54.8 8.2 Oral 480 Output: Urine 70 110 30 Urethral (Anne) 70 110 30 Other: # Bowel Movements 0 - Medications Active Medications: Active Medications Generic Name Dose Route Start Last Admin Trade Name Freq PRN Reason Stop Dose Admin Aspirin 81 mg 01/06/18 10:00 01/07/18 09:28 Aspirin Chewable PO 81 mg DAILY RIKI Administration Clopidogrel Bisulfate 75 mg 01/06/18 10:00 01/07/18 09:28 Plavix PO 75 mg DAILY RIKI Administration Dextrose 0 ml 01/06/18 03:37 Dextrose 50% Inj IV STAT PRN Hypoglycemia Protocol Protocol Dextrose 0 gm 01/06/18 03:37 Glutose 15 PO ONCE PRN Hypoglycemia Protocol Protocol Famotidine 20 mg 01/06/18 10:00 01/07/18 09:28 Pepcid PO 20 mg DAILY RIKI Administration Furosemide 40 mg 01/06/18 10:00 01/07/18 13:55 Lasix IVP Not Given DAILY RIKI Glucagon 0 mg 01/06/18 03:37 Glucagen Diagnostic Kit IM STAT PRN Hypoglycemia Protocol Protocol Dextrose 1,000 mls @ 0 mls/hr 01/06/18 03:37 Dextrose 5% In Water 1000 Ml IV .Q0M PRN Hypoglycemia Protocol Protocol Per Protocol Heparin Sodium/Sodium Chloride 25,000 units in 250 mls @ 5.674 mls/hr 01/06/18 08:17 01/07/18 14:58 Heparin 95611 Units/250ml 1/2 Normal Saline IV 23.79 units/kg/hr .Q24H PRN 15 mls/hr PROTOCOL Titration Protocol 9 UNITS/KG/HR Insulin Aspart 0 unit 01/07/18 12:00 01/07/18 12:43 Novolog SC 1 u Q6 RIKI Administration Protocol Rosuvastatin Calcium 5 mg 01/06/18 22:00 01/06/18 23:04 Crestor PO 5 mg HS RIKI Administration - Patient Studies Lab Studies: Microbiology Studies 01/05/18 Unknown MRSA Culture (Admit) - Final Nose MRSA NOT DETECTED 01/06/18 11:41 Urine Culture - Final Urine No Growth (<1,000 CFU/ML) 01/06/18 07:20 Gram Stain - Final Leg - Right Wound Culture - Preliminary Gram Negative [place] 01/05/18 20:48 Blood Culture - Preliminary Blood NO GROWTH AFTER 24 HOURS 01/05/18 20:18 Blood Culture - Preliminary Blood NO GROWTH AFTER 24 HOURS Lab Studies 01/07/18 01/07/18 01/07/18 Range/Units 14:14 11:29 10:31 WBC 8.6 (4.8-10.8) K/uL RBC 3.50 L (4.40-5.90) Mil/uL Hgb 10.2 L (12.0-18.0) g/dL Hct 31.1 L (35.0-51.0) % MCV 88.8 (80.0-94.0) fL MCH 29.2 (27.0-31.0) pg MCHC 32.9 L (33.0-37.0) g/dL RDW 17.0 H (11.5-14.5) % Plt Count 344 (130-400) K/uL MPV 8.9 (7.2-11.7) fL Neut % (Auto) 86.6 H (50.0-75.0) % Lymph % (Auto) 6.0 L (20.0-40.0) % [place] % (Auto) 7.0 (0.0-10.0) % Eos % (Auto) 0.2 (0.0-4.0) % Baso % (Auto) 0.2 (0.0-2.0) % Neut # (Auto) 7.4 H (1.8-7.0) K/uL Lymph # (Auto) 0.5 L (1.0-4.3) K/uL [place] # (Auto) 0.6 (0.0-0.8) K/uL Eos # (Auto) 0.0 (0.0-0.7) K/uL Baso # (Auto) 0.0 (0.0-0.2) K/uL Neutrophils % (Manual) 90 H (50-75) % Lymphocytes % (Manual) 4 L (20-40) % Monocytes % (Manual) 6 (0-10) % Platelet Estimate Normal (NORMAL) Large Platelets Present Anisocytosis (manual) Slight Ovalocytes Slight APTT 43 H D (21-34) SECONDS Sodium (132-148) mmol/L Potassium (3.6-5.2) mmol/L Chloride (98-107) mmol/L Carbon Dioxide (22-30) mmol/L Anion Gap (10-20) BUN (9-20) mg/dL Creatinine (0.8-1.5) mg/dL Est GFR ( Amer) Est GFR (Non-Af Amer) POC Glucose (mg/dL) 182 H (65-110) mg/dL Random Glucose (75-110) mg/dL Hemoglobin A1c (4.2-6.5) % Calcium (8.6-10.4) mg/dl Phosphorus (2.5-4.5) mg/dL Magnesium (1.6-2.3) mg/dL Total Bilirubin (0.2-1.3) mg/dL AST (17-59) U/L ALT (21-72) U/L Alkaline Phosphatase (38-126) U/L Total Protein (6.3-8.3) g/dL Albumin (3.5-5.0) g/dL Globulin (2.2-3.9) gm/dL Albumin/Globulin Ratio (1.0-2.1) Procalcitonin (0.19-0.49) NG/ML TSH 3rd Generation (0.46-4.68) mIU/L Random Vancomycin ug/mL Complement C3 (88.0-165.0) mg/dL Complement C4 (14.0-44.0) mg/dL Hep Bs Antigen (NEGATIVE) Hep Bs Antibody (NEGATIVE) Hep B Core IgM Ab (NEGATIVE) Hepatitis C Antibody (NEGATIVE) 01/07/18 01/07/18 01/07/18 Range/Units 06:20 06:20 06:20 WBC (4.8-10.8) K/uL RBC (4.40-5.90) Mil/uL Hgb (12.0-18.0) g/dL Hct (35.0-51.0) % MCV (80.0-94.0) fL MCH (27.0-31.0) pg MCHC (33.0-37.0) g/dL RDW (11.5-14.5) % Plt Count (130-400) K/uL MPV (7.2-11.7) fL Neut % (Auto) (50.0-75.0) % Lymph % (Auto) (20.0-40.0) % [place] % (Auto) (0.0-10.0) % Eos % (Auto) (0.0-4.0) % Baso % (Auto) (0.0-2.0) % Neut # (Auto) (1.8-7.0) K/uL Lymph # (Auto) (1.0-4.3) K/uL [place] # (Auto) (0.0-0.8) K/uL Eos # (Auto) (0.0-0.7) K/uL Baso # (Auto) (0.0-0.2) K/uL Neutrophils % (Manual) (50-75) % Lymphocytes % (Manual) (20-40) % Monocytes % (Manual) (0-10) % Platelet Estimate (NORMAL) Large Platelets Anisocytosis (manual) Ovalocytes APTT 35 H D (21-34) SECONDS Sodium (132-148) mmol/L Potassium (3.6-5.2) mmol/L Chloride (98-107) mmol/L Carbon Dioxide (22-30) mmol/L Anion Gap (10-20) BUN (9-20) mg/dL Creatinine (0.8-1.5) mg/dL Est GFR ( Amer) Est GFR (Non-Af Amer) POC Glucose (mg/dL) (65-110) mg/dL Random Glucose (75-110) mg/dL Hemoglobin A1c 7.7 H (4.2-6.5) % Calcium (8.6-10.4) mg/dl Phosphorus (2.5-4.5) mg/dL Magnesium (1.6-2.3) mg/dL Total Bilirubin (0.2-1.3) mg/dL AST (17-59) U/L ALT (21-72) U/L Alkaline Phosphatase (38-126) U/L Total Protein (6.3-8.3) g/dL Albumin (3.5-5.0) g/dL Globulin (2.2-3.9) gm/dL Albumin/Globulin Ratio (1.0-2.1) Procalcitonin (0.19-0.49) NG/ML TSH 3rd Generation (0.46-4.68) mIU/L Random Vancomycin ug/mL Complement C3 104.0 (88.0-165.0) mg/dL Complement C4 23.7 (14.0-44.0) mg/dL Hep Bs Antigen (NEGATIVE) Hep Bs Antibody (NEGATIVE) Hep B Core IgM Ab (NEGATIVE) Hepatitis C Antibody (NEGATIVE) 01/07/18 01/07/18 01/07/18 Range/Units 06:20 06:20 04:18 WBC (4.8-10.8) K/uL RBC (4.40-5.90) Mil/uL Hgb (12.0-18.0) g/dL Hct (35.0-51.0) % MCV (80.0-94.0) fL MCH (27.0-31.0) pg MCHC (33.0-37.0) g/dL RDW (11.5-14.5) % Plt Count (130-400) K/uL MPV (7.2-11.7) fL Neut % (Auto) (50.0-75.0) % Lymph % (Auto) (20.0-40.0) % [place] % (Auto) (0.0-10.0) % Eos % (Auto) (0.0-4.0) % Baso % (Auto) (0.0-2.0) % Neut # (Auto) (1.8-7.0) K/uL Lymph # (Auto) (1.0-4.3) K/uL [place] # (Auto) (0.0-0.8) K/uL Eos # (Auto) (0.0-0.7) K/uL Baso # (Auto) (0.0-0.2) K/uL Neutrophils % (Manual) (50-75) % Lymphocytes % (Manual) (20-40) % Monocytes % (Manual) (0-10) % Platelet Estimate (NORMAL) Large Platelets Anisocytosis (manual) Ovalocytes APTT (21-34) SECONDS Sodium 140 (132-148) mmol/L Potassium 4.8 (3.6-5.2) mmol/L Chloride 103 (98-107) mmol/L Carbon Dioxide 22 (22-30) mmol/L Anion Gap 20 (10-20) BUN 57 H (9-20) mg/dL Creatinine 2.8 H (0.8-1.5) mg/dL Est GFR ( Amer) 28 Est GFR (Non-Af Amer) 23 POC Glucose (mg/dL) 140 H (65-110) mg/dL Random Glucose 134 H (75-110) mg/dL Hemoglobin A1c (4.2-6.5) % Calcium 8.3 L (8.6-10.4) mg/dl Phosphorus 6.9 H (2.5-4.5) mg/dL Magnesium 1.8 (1.6-2.3) mg/dL Total Bilirubin 1.1 (0.2-1.3) mg/dL AST 434 H D (17-59) U/L ALT 554 H (21-72) U/L Alkaline Phosphatase 353 H (38-126) U/L Total Protein 6.2 L (6.3-8.3) g/dL Albumin 3.3 L (3.5-5.0) g/dL Globulin 2.9 (2.2-3.9) gm/dL Albumin/Globulin Ratio 1.1 (1.0-2.1) Procalcitonin (0.19-0.49) NG/ML TSH 3rd Generation 1.98 (0.46-4.68) mIU/L Random Vancomycin 6.4 ug/mL Complement C3 (88.0-165.0) mg/dL Complement C4 (14.0-44.0) mg/dL Hep Bs Antigen (NEGATIVE) Hep Bs Antibody (NEGATIVE) Hep B Core IgM Ab (NEGATIVE) Hepatitis C Antibody (NEGATIVE) 01/06/18 01/06/18 01/06/18 Range/Units 23:39 23:34 20:10 WBC (4.8-10.8) K/uL RBC (4.40-5.90) Mil/uL Hgb (12.0-18.0) g/dL Hct (35.0-51.0) % MCV (80.0-94.0) fL MCH (27.0-31.0) pg MCHC (33.0-37.0) g/dL RDW (11.5-14.5) % Plt Count (130-400) K/uL MPV (7.2-11.7) fL Neut % (Auto) (50.0-75.0) % Lymph % (Auto) (20.0-40.0) % [place] % (Auto) (0.0-10.0) % Eos % (Auto) (0.0-4.0) % Baso % (Auto) (0.0-2.0) % Neut # (Auto) (1.8-7.0) K/uL Lymph # (Auto) (1.0-4.3) K/uL [place] # (Auto) (0.0-0.8) K/uL Eos # (Auto) (0.0-0.7) K/uL Baso # (Auto) (0.0-0.2) K/uL Neutrophils % (Manual) (50-75) % Lymphocytes % (Manual) (20-40) % Monocytes % (Manual) (0-10) % Platelet Estimate (NORMAL) Large Platelets Anisocytosis (manual) Ovalocytes APTT 46 H D (21-34) SECONDS Sodium (132-148) mmol/L Potassium (3.6-5.2) mmol/L Chloride (98-107) mmol/L Carbon Dioxide (22-30) mmol/L Anion Gap (10-20) BUN (9-20) mg/dL Creatinine (0.8-1.5) mg/dL Est GFR ( Amer) Est GFR (Non-Af Amer) POC Glucose (mg/dL) 169 H 139 H (65-110) mg/dL Random Glucose (75-110) mg/dL Hemoglobin A1c (4.2-6.5) % Calcium (8.6-10.4) mg/dl Phosphorus (2.5-4.5) mg/dL Magnesium (1.6-2.3) mg/dL Total Bilirubin (0.2-1.3) mg/dL AST (17-59) U/L ALT (21-72) U/L Alkaline Phosphatase (38-126) U/L Total Protein (6.3-8.3) g/dL Albumin (3.5-5.0) g/dL Globulin (2.2-3.9) gm/dL Albumin/Globulin Ratio (1.0-2.1) Procalcitonin (0.19-0.49) NG/ML TSH 3rd Generation (0.46-4.68) mIU/L Random Vancomycin ug/mL Complement C3 (88.0-165.0) mg/dL Complement C4 (14.0-44.0) mg/dL Hep Bs Antigen (NEGATIVE) Hep Bs Antibody (NEGATIVE) Hep B Core IgM Ab (NEGATIVE) Hepatitis C Antibody (NEGATIVE) 01/06/18 01/06/18 01/06/18 Range/Units 17:35 17:35 17:35 WBC (4.8-10.8) K/uL RBC (4.40-5.90) Mil/uL Hgb (12.0-18.0) g/dL Hct (35.0-51.0) % MCV (80.0-94.0) fL MCH (27.0-31.0) pg MCHC (33.0-37.0) g/dL RDW (11.5-14.5) % Plt Count (130-400) K/uL MPV (7.2-11.7) fL Neut % (Auto) (50.0-75.0) % Lymph % (Auto) (20.0-40.0) % [place] % (Auto) (0.0-10.0) % Eos % (Auto) (0.0-4.0) % Baso % (Auto) (0.0-2.0) % Neut # (Auto) (1.8-7.0) K/uL Lymph # (Auto) (1.0-4.3) K/uL [place] # (Auto) (0.0-0.8) K/uL Eos # (Auto) (0.0-0.7) K/uL Baso # (Auto) (0.0-0.2) K/uL Neutrophils % (Manual) (50-75) % Lymphocytes % (Manual) (20-40) % Monocytes % (Manual) (0-10) % Platelet Estimate (NORMAL) Large Platelets Anisocytosis (manual) Ovalocytes APTT (21-34) SECONDS Sodium (132-148) mmol/L Potassium (3.6-5.2) mmol/L Chloride (98-107) mmol/L Carbon Dioxide (22-30) mmol/L Anion Gap (10-20) BUN (9-20) mg/dL Creatinine (0.8-1.5) mg/dL Est GFR ( Amer) Est GFR (Non-Af Amer) POC Glucose (mg/dL) (65-110) mg/dL Random Glucose (75-110) mg/dL Hemoglobin A1c (4.2-6.5) % Calcium (8.6-10.4) mg/dl Phosphorus (2.5-4.5) mg/dL Magnesium (1.6-2.3) mg/dL Total Bilirubin (0.2-1.3) mg/dL AST (17-59) U/L ALT (21-72) U/L Alkaline Phosphatase (38-126) U/L Total Protein (6.3-8.3) g/dL Albumin (3.5-5.0) g/dL Globulin (2.2-3.9) gm/dL Albumin/Globulin Ratio (1.0-2.1) Procalcitonin (0.19-0.49) NG/ML TSH 3rd Generation (0.46-4.68) mIU/L Random Vancomycin ug/mL Complement C3 (88.0-165.0) mg/dL Complement C4 (14.0-44.0) mg/dL Hep Bs Antigen Negative (NEGATIVE) Hep Bs Antibody Negative Negative (NEGATIVE) Hep B Core IgM Ab Negative (NEGATIVE) Hepatitis C Antibody Negative (NEGATIVE) 01/06/18 01/06/18 01/06/18 Range/Units 17:35 16:44 16:38 WBC (4.8-10.8) K/uL RBC (4.40-5.90) Mil/uL Hgb (12.0-18.0) g/dL Hct (35.0-51.0) % MCV (80.0-94.0) fL MCH (27.0-31.0) pg MCHC (33.0-37.0) g/dL RDW (11.5-14.5) % Plt Count (130-400) K/uL MPV (7.2-11.7) fL Neut % (Auto) (50.0-75.0) % Lymph % (Auto) (20.0-40.0) % [place] % (Auto) (0.0-10.0) % Eos % (Auto) (0.0-4.0) % Baso % (Auto) (0.0-2.0) % Neut # (Auto) (1.8-7.0) K/uL Lymph # (Auto) (1.0-4.3) K/uL [place] # (Auto) (0.0-0.8) K/uL Eos # (Auto) (0.0-0.7) K/uL Baso # (Auto) (0.0-0.2) K/uL Neutrophils % (Manual) (50-75) % Lymphocytes % (Manual) (20-40) % Monocytes % (Manual) (0-10) % Platelet Estimate (NORMAL) Large Platelets Anisocytosis (manual) Ovalocytes APTT 35 H (21-34) SECONDS Sodium (132-148) mmol/L Potassium (3.6-5.2) mmol/L Chloride (98-107) mmol/L Carbon Dioxide (22-30) mmol/L Anion Gap (10-20) BUN (9-20) mg/dL Creatinine (0.8-1.5) mg/dL Est GFR ( Amer) Est GFR (Non-Af Amer) POC Glucose (mg/dL) 168 H (65-110) mg/dL Random Glucose (75-110) mg/dL Hemoglobin A1c (4.2-6.5) % Calcium (8.6-10.4) mg/dl Phosphorus (2.5-4.5) mg/dL Magnesium (1.6-2.3) mg/dL Total Bilirubin (0.2-1.3) mg/dL AST (17-59) U/L ALT (21-72) U/L Alkaline Phosphatase (38-126) U/L Total Protein (6.3-8.3) g/dL Albumin (3.5-5.0) g/dL Globulin (2.2-3.9) gm/dL Albumin/Globulin Ratio (1.0-2.1) Procalcitonin (0.19-0.49) NG/ML TSH 3rd Generation (0.46-4.68) mIU/L Random Vancomycin ug/mL Complement C3 (88.0-165.0) mg/dL Complement C4 (14.0-44.0) mg/dL Hep Bs Antigen Negative (NEGATIVE) Hep Bs Antibody (NEGATIVE) Hep B Core IgM Ab Negative (NEGATIVE) Hepatitis C Antibody (NEGATIVE) 01/06/18 01/06/18 Range/Units 14:25 11:30 WBC (4.8-10.8) K/uL RBC (4.40-5.90) Mil/uL Hgb (12.0-18.0) g/dL Hct (35.0-51.0) % MCV (80.0-94.0) fL MCH (27.0-31.0) pg MCHC (33.0-37.0) g/dL RDW (11.5-14.5) % Plt Count (130-400) K/uL MPV (7.2-11.7) fL Neut % (Auto) (50.0-75.0) % Lymph % (Auto) (20.0-40.0) % [place] % (Auto) (0.0-10.0) % Eos % (Auto) (0.0-4.0) % Baso % (Auto) (0.0-2.0) % Neut # (Auto) (1.8-7.0) K/uL Lymph # (Auto) (1.0-4.3) K/uL [place] # (Auto) (0.0-0.8) K/uL Eos # (Auto) (0.0-0.7) K/uL Baso # (Auto) (0.0-0.2) K/uL Neutrophils % (Manual) (50-75) % Lymphocytes % (Manual) (20-40) % Monocytes % (Manual) (0-10) % Platelet Estimate (NORMAL) Large Platelets Anisocytosis (manual) Ovalocytes APTT (21-34) SECONDS Sodium (132-148) mmol/L Potassium (3.6-5.2) mmol/L Chloride (98-107) mmol/L Carbon Dioxide (22-30) mmol/L Anion Gap (10-20) BUN (9-20) mg/dL Creatinine (0.8-1.5) mg/dL Est GFR ( Amer) Est GFR (Non-Af Amer) POC Glucose (mg/dL) 188 H (65-110) mg/dL Random Glucose (75-110) mg/dL Hemoglobin A1c (4.2-6.5) % Calcium (8.6-10.4) mg/dl Phosphorus (2.5-4.5) mg/dL Magnesium (1.6-2.3) mg/dL Total Bilirubin (0.2-1.3) mg/dL AST (17-59) U/L ALT (21-72) U/L Alkaline Phosphatase (38-126) U/L Total Protein (6.3-8.3) g/dL Albumin (3.5-5.0) g/dL Globulin (2.2-3.9) gm/dL Albumin/Globulin Ratio (1.0-2.1) Procalcitonin 1.18 H (0.19-0.49) NG/ML TSH 3rd Generation (0.46-4.68) mIU/L Random Vancomycin ug/mL Complement C3 (88.0-165.0) mg/dL Complement C4 (14.0-44.0) mg/dL Hep Bs Antigen (NEGATIVE) Hep Bs Antibody (NEGATIVE) Hep B Core IgM Ab (NEGATIVE) Hepatitis C Antibody (NEGATIVE) Laboratory Results - last 24 hr 01/06/18 01/06/18 01/06/18 11:30 14:25 16:38 WBC RBC Hgb Hct MCV MCH MCHC RDW Plt Count MPV Neut % (Auto) Lymph % (Auto) [place] % (Auto) Eos % (Auto) Baso % (Auto) Neut # (Auto) Lymph # (Auto) [place] # (Auto) Eos # (Auto) Baso # (Auto) Neutrophils % (Manual) Lymphocytes % (Manual) Monocytes % (Manual) Platelet Estimate Large Platelets Anisocytosis (manual) Ovalocytes APTT Sodium Potassium Chloride Carbon Dioxide Anion Gap BUN Creatinine Est GFR ( Amer) Est GFR (Non-Af Amer) POC Glucose (mg/dL) 188 H 168 H Random Glucose Hemoglobin A1c Calcium Phosphorus Magnesium Total Bilirubin AST ALT Alkaline Phosphatase Total Protein Albumin Globulin Albumin/Globulin Ratio Procalcitonin 1.18 H TSH 3rd Generation Random Vancomycin Complement C3 Complement C4 Hep Bs Antigen Hep Bs Antibody Hep B Core IgM Ab Hepatitis C Antibody 01/06/18 01/06/18 01/06/18 16:44 17:35 17:35 WBC RBC Hgb Hct MCV MCH MCHC RDW Plt Count MPV Neut % (Auto) Lymph % (Auto) [place] % (Auto) Eos % (Auto) Baso % (Auto) Neut # (Auto) Lymph # (Auto) [place] # (Auto) Eos # (Auto) Baso # (Auto) Neutrophils % (Manual) Lymphocytes % (Manual) Monocytes % (Manual) Platelet Estimate Large Platelets Anisocytosis (manual) Ovalocytes APTT 35 H Sodium Potassium Chloride Carbon Dioxide Anion Gap BUN Creatinine Est GFR ( Amer) Est GFR (Non-Af Amer) POC Glucose (mg/dL) Random Glucose Hemoglobin A1c Calcium Phosphorus Magnesium Total Bilirubin AST ALT Alkaline Phosphatase Total Protein Albumin Globulin Albumin/Globulin Ratio Procalcitonin TSH 3rd Generation Random Vancomycin Complement C3 Complement C4 Hep Bs Antigen Negative Hep Bs Antibody Negative Hep B Core IgM Ab Negative Hepatitis C Antibody 01/06/18 01/06/18 01/06/18 17:35 17:35 20:10 WBC RBC Hgb Hct MCV MCH MCHC RDW Plt Count MPV Neut % (Auto) Lymph % (Auto) [place] % (Auto) Eos % (Auto) Baso % (Auto) Neut # (Auto) Lymph # (Auto) [place] # (Auto) Eos # (Auto) Baso # (Auto) Neutrophils % (Manual) Lymphocytes % (Manual) Monocytes % (Manual) Platelet Estimate Large Platelets Anisocytosis (manual) Ovalocytes APTT Sodium Potassium Chloride Carbon Dioxide Anion Gap BUN Creatinine Est GFR ( Amer) Est GFR (Non-Af Amer) POC Glucose (mg/dL) 139 H Random Glucose Hemoglobin A1c Calcium Phosphorus Magnesium Total Bilirubin AST ALT Alkaline Phosphatase Total Protein Albumin Globulin Albumin/Globulin Ratio Procalcitonin TSH 3rd Generation Random Vancomycin Complement C3 Complement C4 Hep Bs Antigen Negative Hep Bs Antibody Negative Hep B Core IgM Ab Negative Hepatitis C Antibody Negative 01/06/18 01/06/18 01/07/18 23:34 23:39 04:18 WBC RBC Hgb Hct MCV MCH MCHC RDW Plt Count MPV Neut % (Auto) Lymph % (Auto) [place] % (Auto) Eos % (Auto) Baso % (Auto) Neut # (Auto) Lymph # (Auto) [place] # (Auto) Eos # (Auto) Baso # (Auto) Neutrophils % (Manual) Lymphocytes % (Manual) Monocytes % (Manual) Platelet Estimate Large Platelets Anisocytosis (manual) Ovalocytes APTT 46 H D Sodium Potassium Chloride Carbon Dioxide Anion Gap BUN Creatinine Est GFR ( Amer) Est GFR (Non-Af Amer) POC Glucose (mg/dL) 169 H 140 H Random Glucose Hemoglobin A1c Calcium Phosphorus Magnesium Total Bilirubin AST ALT Alkaline Phosphatase Total Protein Albumin Globulin Albumin/Globulin Ratio Procalcitonin TSH 3rd Generation Random Vancomycin Complement C3 Complement C4 Hep Bs Antigen Hep Bs Antibody Hep B Core IgM Ab Hepatitis C Antibody 01/07/18 01/07/18 01/07/18 06:20 06:20 06:20 WBC RBC Hgb Hct MCV MCH MCHC RDW Plt Count MPV Neut % (Auto) Lymph % (Auto) [place] % (Auto) Eos % (Auto) Baso % (Auto) Neut # (Auto) Lymph # (Auto) [place] # (Auto) Eos # (Auto) Baso # (Auto) Neutrophils % (Manual) Lymphocytes % (Manual) Monocytes % (Manual) Platelet Estimate Large Platelets Anisocytosis (manual) Ovalocytes APTT Sodium 140 Potassium 4.8 Chloride 103 Carbon Dioxide 22 Anion Gap 20 BUN 57 H Creatinine 2.8 H Est GFR ( Amer) 28 Est GFR (Non-Af Amer) 23 POC Glucose (mg/dL) Random Glucose 134 H Hemoglobin A1c 7.7 H Calcium 8.3 L Phosphorus 6.9 H Magnesium 1.8 Total Bilirubin 1.1 AST 434 H D ALT 554 H Alkaline Phosphatase 353 H Total Protein 6.2 L Albumin 3.3 L Globulin 2.9 Albumin/Globulin Ratio 1.1 Procalcitonin TSH 3rd Generation 1.98 Random Vancomycin 6.4 Complement C3 Complement C4 Hep Bs Antigen Hep Bs Antibody Hep B Core IgM Ab Hepatitis C Antibody 01/07/18 01/07/18 01/07/18 06:20 06:20 10:31 WBC 8.6 RBC 3.50 L Hgb 10.2 L Hct 31.1 L MCV 88.8 MCH 29.2 MCHC 32.9 L RDW 17.0 H Plt Count 344 MPV 8.9 Neut % (Auto) 86.6 H Lymph % (Auto) 6.0 L [place] % (Auto) 7.0 Eos % (Auto) 0.2 Baso % (Auto) 0.2 Neut # (Auto) 7.4 H Lymph # (Auto) 0.5 L [place] # (Auto) 0.6 Eos # (Auto) 0.0 Baso # (Auto) 0.0 Neutrophils % (Manual) 90 H Lymphocytes % (Manual) 4 L Monocytes % (Manual) 6 Platelet Estimate Normal Large Platelets Present Anisocytosis (manual) Slight Ovalocytes Slight APTT 35 H D Sodium Potassium Chloride Carbon Dioxide Anion Gap BUN Creatinine Est GFR ( Amer) Est GFR (Non-Af Amer) POC Glucose (mg/dL) Random Glucose Hemoglobin A1c Calcium Phosphorus Magnesium Total Bilirubin AST ALT Alkaline Phosphatase Total Protein Albumin Globulin Albumin/Globulin Ratio Procalcitonin TSH 3rd Generation Random Vancomycin Complement C3 104.0 Complement C4 23.7 Hep Bs Antigen Hep Bs Antibody Hep B Core IgM Ab Hepatitis C Antibody 01/07/18 01/07/18 11:29 14:14 WBC RBC Hgb Hct MCV MCH MCHC RDW Plt Count MPV Neut % (Auto) Lymph % (Auto) [place] % (Auto) Eos % (Auto) Baso % (Auto) Neut # (Auto) Lymph # (Auto) [place] # (Auto) Eos # (Auto) Baso # (Auto) Neutrophils % (Manual) Lymphocytes % (Manual) Monocytes % (Manual) Platelet Estimate Large Platelets Anisocytosis (manual) Ovalocytes APTT 43 H D Sodium Potassium Chloride Carbon Dioxide Anion Gap BUN Creatinine Est GFR ( Amer) Est GFR (Non-Af Amer) POC Glucose (mg/dL) 182 H Random Glucose Hemoglobin A1c Calcium Phosphorus Magnesium Total Bilirubin AST ALT Alkaline Phosphatase Total Protein Albumin Globulin Albumin/Globulin Ratio Procalcitonin TSH 3rd Generation Random Vancomycin Complement C3 Complement C4 Hep Bs Antigen Hep Bs Antibody Hep B Core IgM Ab Hepatitis C Antibody Critical Care Progress Note - Nutrition Nutrition: Nutrition Category Date Time Status Renal Diet [DIET] Diets 01/06/18 Breakfast Active Attending/Attestation - Attestation I have personally seen and examined this patient.: Yes I have fully participated in the care of the patient.: Yes I have reviewed all pertinent clinical information: Yes Notes (Text): 01/07/18 16:00 Patient's sob improved, on 40% high flow, has leg edema, cxr still difficult to see diaphragm, suspect b/l effusion on clinical exam left worse then right, denies cp, bp some times reduces to high 80's. Plan CT chest/abd/pelvis, to assess the pl effusion, and asses breathing and abd May prevent low intravascular volume, to allow kidneys to recover HD as needed symptomatically, alternative will be pleural tap if enough fluid. Transaminitis suspected form same insult to the kidneys Ischemic cardiomyopathy, s/p CABG at [facility] 2 wks back, with elevated troponins on heparin drip See orders for detail. <Feliberto Vital - Last Filed: 01/07/18 17:47> CCU Subjective - Physician Review Subjective (Free Text): 01/07/18 16:21 Patient seen and examined at bedside in the ICU. Dyspnea remains improved, speaking without any overt dyspnea. Underwent hemodialysis yesterday, borderline low normal BPs overnight and today, but remains MAP > 65 and no lethargy/somnolence/AMS. Denies complaints of SOB, chest pain, and dizziness today, feeling better overall. CCU Objective - Vital Signs / Intake & Output Vital Signs (Last 4 hours): Vital Signs Temp Pulse Resp BP Pulse Ox 01/07/18 04:36 49 L 17 88/52 L 99 01/07/18 04:20 58 L 20 111/72 93 L 01/07/18 04:06 61 20 109/68 98 01/07/18 04:00 98.1 F 64 22 99 01/07/18 03:50 60 22 107/70 99 01/07/18 03:35 49 L 19 92/54 L 100 01/07/18 03:21 57 L 22 96/52 L 100 Intake and Output (Last 8hrs): Intake & Output 01/06/18 01/07/18 01/07/18 22:59 06:59 14:59 Intake Total 440.6 41.4 Output Total 90 55 Balance 350.6 -13.6 Weight 88.7 kg Intake: IV 49 Intake, IV Amount 51.6 41.4 Right Antecubital 51.6 41.4 Oral 340 Output: Urine 90 55 Urethral (Anne) 90 55 Other: # Bowel Movements 0 0 - Physical Exam Head: Positive for: Atraumatic, Normocephalic Pupils: Negative for: Non-Reactive, Pinpoint Extroacular Muscles: Positive for: EOMI. Negative for: Gaze Palsy, Entrapment Conjunctiva: Positive for: Normal. Negative for: Injected, Icteric Mouth: Positive for: Moist Mucous Membranes. Negative for: Dry, Drooling Nose (External): Positive for: Atraumatic. Negative for: Abrasion, Contusion, Laceration Nose (Internal): Positive for: No Active Bleeding. Negative for: Epistaxis Neck: Positive for: Normal Range of Motion, Trachea Midline. Negative for: MIDLINE TENDERNESS, JVD Respiratory/Chest: Positive for: Good Air Exchange, Rales (improved but still present diffuse rales in all irizarry, more predominant in bilateral bases). Negative for: Clear to Auscultation, Respiratory Distress, Accessory Muscle Use, Wheezes, Rhonchi Cardiovascular: Positive for: Regular Rate and Rhythm, Normal S1, S2. Negative for: Murmurs, Irregular Rhythm, Tachycardic, Bradycardic Abdomen: Positive for: Normal Bowel Sounds. Negative for: Tenderness, Distention Upper Extremity: Positive for: Edema (+1 pitting edema in bilateral UE, improved compared to yesterday), Normal ROM. Negative for: Normal Inspection, NORMAL PULSES (difficult to palpate due to peripheral edema, +1 radials bilaterally, +1 brachials), Tenderness, Erythema Lower Extremity: Positive for: Edema (+2 pitting edema in bilateral LE from feet, improved compared to yesteday). Negative for: CALF TENDERNESS, NORMAL PULSES (unable to palpate through pitting edema) Neurological: Positive for: GCS=15, Speech Normal Skin: Positive for: Dry, Normal Color, Other (cool but not cold at the distal extremities, otherwise warm). Negative for: Pale Psychiatric: Positive for: Alert, Oriented x 3, Normal Affect, Normal Mood - Medications Active Medications: Active Medications Generic Name Dose Route Start Last Admin Trade Name Freq PRN Reason Stop Dose Admin Aspirin 81 mg 01/06/18 10:00 01/06/18 10:09 Aspirin Chewable PO 81 mg DAILY RIKI Administration Clopidogrel Bisulfate 75 mg 01/06/18 10:00 01/06/18 10:09 Plavix PO 75 mg DAILY RIKI Administration Dextrose 0 ml 01/06/18 03:37 Dextrose 50% Inj IV STAT PRN Hypoglycemia Protocol Protocol Dextrose 0 gm 01/06/18 03:37 Glutose 15 PO ONCE PRN Hypoglycemia Protocol Protocol Famotidine 20 mg 01/06/18 10:00 01/06/18 10:09 Pepcid PO 20 mg DAILY RIKI Administration Furosemide 40 mg 01/06/18 10:00 01/06/18 10:09 Lasix IVP 40 mg DAILY RIKI Administration Glucagon 0 mg 01/06/18 03:37 Glucagen Diagnostic Kit IM STAT PRN Hypoglycemia Protocol Protocol Dextrose 1,000 mls @ 0 mls/hr 01/06/18 03:37 Dextrose 5% In Water 1000 Ml IV .Q0M PRN Hypoglycemia Protocol Protocol Per Protocol Heparin Sodium/Sodium Chloride 25,000 units in 250 mls @ 5.674 mls/hr 01/06/18 08:17 01/06/18 17:26 Heparin 06812 Units/250ml 1/2 Normal Saline IV 11 units/kg/hr .Q24H PRN 6.935 mls/hr PROTOCOL Titration Protocol 9 UNITS/KG/HR Insulin Aspart 0 unit 01/06/18 04:00 01/07/18 04:00 Novolog SC Not Given Q4 RIKI Protocol Rosuvastatin Calcium 5 mg 01/06/18 22:00 01/06/18 23:04 Crestor PO 5 mg HS RIKI Administration - Patient Studies Lab Studies: Microbiology Studies 01/06/18 07:20 Gram Stain - Final Leg - Right Lab Studies 01/07/18 01/07/18 01/07/18 Range/Units 06:20 06:20 06:20 WBC (4.8-10.8) K/uL RBC (4.40-5.90) Mil/uL Hgb (12.0-18.0) g/dL Hct (35.0-51.0) % MCV (80.0-94.0) fL MCH (27.0-31.0) pg MCHC (33.0-37.0) g/dL RDW (11.5-14.5) % Plt Count (130-400) K/uL MPV (7.2-11.7) fL APTT 35 H D (21-34) SECONDS Sodium (132-148) mmol/L Potassium (3.6-5.2) mmol/L Chloride (98-107) mmol/L Carbon Dioxide (22-30) mmol/L Anion Gap (10-20) BUN (9-20) mg/dL Creatinine (0.8-1.5) mg/dL Est GFR ( Amer) Est GFR (Non-Af Amer) POC Glucose (mg/dL) (65-110) mg/dL Random Glucose (75-110) mg/dL Lactic Acid (0.7-2.1) mmol/L Calcium (8.6-10.4) mg/dl Phosphorus (2.5-4.5) mg/dL Magnesium (1.6-2.3) mg/dL Total Bilirubin (0.2-1.3) mg/dL AST (17-59) U/L ALT (21-72) U/L Alkaline Phosphatase (38-126) U/L Troponin I (0.00-0.120) ng/mL Total Protein (6.3-8.3) g/dL Albumin (3.5-5.0) g/dL Globulin (2.2-3.9) gm/dL Albumin/Globulin Ratio (1.0-2.1) Procalcitonin (0.19-0.49) NG/ML Urine Color (YELLOW) Urine Clarity (Clear) Urine pH (5.0-8.0) Ur Specific [place] (1.003-1.030) Urine Protein (NEGATIVE) mg/dL Urine Glucose (UA) (Normal) mg/dL Urine Ketones (NEGATIVE) mg/dL Urine Blood (NEGATIVE) Urine Nitrate (NEGATIVE) Urine Bilirubin (NEGATIVE) Urine Urobilinogen (0.2-1.0) mg/dL Ur Leukocyte Esterase (Negative) Julia/uL Urine WBC (Auto) (0-5) /hpf Urine RBC (Auto) (0-3) /hpf Amorphous Sediment (<OCC) /ul Urine Bacteria (<OCC) Random Vancomycin 6.4 ug/mL Urine Opiates Screen (NEGATIVE) Urine Methadone Screen (NEGATIVE) Ur Barbiturates Screen (NEGATIVE) Ur Phencyclidine Scrn (NEGATIVE) Ur Amphetamines Screen (NEGATIVE) U Benzodiazepines Scrn (NEGATIVE) U Oth Cocaine Metabols (NEGATIVE) U Cannabinoids Screen (NEGATIVE) Complement C3 104.0 (88.0-165.0) mg/dL Complement C4 23.7 (14.0-44.0) mg/dL 01/07/18 01/07/18 01/06/18 Range/Units 06:20 04:18 23:39 WBC (4.8-10.8) K/uL RBC (4.40-5.90) Mil/uL Hgb (12.0-18.0) g/dL Hct (35.0-51.0) % MCV (80.0-94.0) fL MCH (27.0-31.0) pg MCHC (33.0-37.0) g/dL RDW (11.5-14.5) % Plt Count (130-400) K/uL MPV (7.2-11.7) fL APTT 46 H D (21-34) SECONDS Sodium (132-148) mmol/L Potassium 4.8 (3.6-5.2) mmol/L Chloride (98-107) mmol/L Carbon Dioxide 22 (22-30) mmol/L Anion Gap (10-20) BUN 57 H (9-20) mg/dL Creatinine 2.8 H (0.8-1.5) mg/dL Est GFR ( Amer) 28 Est GFR (Non-Af Amer) 23 POC Glucose (mg/dL) 140 H (65-110) mg/dL Random Glucose 134 H (75-110) mg/dL Lactic Acid (0.7-2.1) mmol/L Calcium 8.3 L (8.6-10.4) mg/dl Phosphorus (2.5-4.5) mg/dL Magnesium 1.8 (1.6-2.3) mg/dL Total Bilirubin 1.1 (0.2-1.3) mg/dL AST 434 H D (17-59) U/L ALT 554 H (21-72) U/L Alkaline Phosphatase 353 H (38-126) U/L Troponin I (0.00-0.120) ng/mL Total Protein 6.2 L (6.3-8.3) g/dL Albumin 3.3 L (3.5-5.0) g/dL Globulin 2.9 (2.2-3.9) gm/dL Albumin/Globulin Ratio 1.1 (1.0-2.1) Procalcitonin (0.19-0.49) NG/ML Urine Color (YELLOW) Urine Clarity (Clear) Urine pH (5.0-8.0) Ur Specific [place] (1.003-1.030) Urine Protein (NEGATIVE) mg/dL Urine Glucose (UA) (Normal) mg/dL Urine Ketones (NEGATIVE) mg/dL Urine Blood (NEGATIVE) Urine Nitrate (NEGATIVE) Urine Bilirubin (NEGATIVE) Urine Urobilinogen (0.2-1.0) mg/dL Ur Leukocyte Esterase (Negative) Julia/uL Urine WBC (Auto) (0-5) /hpf Urine RBC (Auto) (0-3) /hpf Amorphous Sediment (<OCC) /ul Urine Bacteria (<OCC) Random Vancomycin ug/mL Urine Opiates Screen (NEGATIVE) Urine Methadone Screen (NEGATIVE) Ur Barbiturates Screen (NEGATIVE) Ur Phencyclidine Scrn (NEGATIVE) Ur Amphetamines Screen (NEGATIVE) U Benzodiazepines Scrn (NEGATIVE) U Oth Cocaine Metabols (NEGATIVE) U Cannabinoids Screen (NEGATIVE) Complement C3 (88.0-165.0) mg/dL Complement C4 (14.0-44.0) mg/dL 01/06/18 01/06/18 01/06/18 Range/Units 23:34 20:10 16:44 WBC (4.8-10.8) K/uL RBC (4.40-5.90) Mil/uL Hgb (12.0-18.0) g/dL Hct (35.0-51.0) % MCV (80.0-94.0) fL MCH (27.0-31.0) pg MCHC (33.0-37.0) g/dL RDW (11.5-14.5) % Plt Count (130-400) K/uL MPV (7.2-11.7) fL APTT 35 H (21-34) SECONDS Sodium (132-148) mmol/L Potassium (3.6-5.2) mmol/L Chloride (98-107) mmol/L Carbon Dioxide (22-30) mmol/L Anion Gap (10-20) BUN (9-20) mg/dL Creatinine (0.8-1.5) mg/dL Est GFR ( Amer) Est GFR (Non-Af Amer) POC Glucose (mg/dL) 169 H 139 H (65-110) mg/dL Random Glucose (75-110) mg/dL Lactic Acid (0.7-2.1) mmol/L Calcium (8.6-10.4) mg/dl Phosphorus (2.5-4.5) mg/dL Magnesium (1.6-2.3) mg/dL Total Bilirubin (0.2-1.3) mg/dL AST (17-59) U/L ALT (21-72) U/L Alkaline Phosphatase (38-126) U/L Troponin I (0.00-0.120) ng/mL Total Protein (6.3-8.3) g/dL Albumin (3.5-5.0) g/dL Globulin (2.2-3.9) gm/dL Albumin/Globulin Ratio (1.0-2.1) Procalcitonin (0.19-0.49) NG/ML Urine Color (YELLOW) Urine Clarity (Clear) Urine pH (5.0-8.0) Ur Specific [place] (1.003-1.030) Urine Protein (NEGATIVE) mg/dL Urine Glucose (UA) (Normal) mg/dL Urine Ketones (NEGATIVE) mg/dL Urine Blood (NEGATIVE) Urine Nitrate (NEGATIVE) Urine Bilirubin (NEGATIVE) Urine Urobilinogen (0.2-1.0) mg/dL Ur Leukocyte Esterase (Negative) Julia/uL Urine WBC (Auto) (0-5) /hpf Urine RBC (Auto) (0-3) /hpf Amorphous Sediment (<OCC) /ul Urine Bacteria (<OCC) Random Vancomycin ug/mL Urine Opiates Screen (NEGATIVE) Urine Methadone Screen (NEGATIVE) Ur Barbiturates Screen (NEGATIVE) Ur Phencyclidine Scrn (NEGATIVE) Ur Amphetamines Screen (NEGATIVE) U Benzodiazepines Scrn (NEGATIVE) U Oth Cocaine Metabols (NEGATIVE) U Cannabinoids Screen (NEGATIVE) Complement C3 (88.0-165.0) mg/dL Complement C4 (14.0-44.0) mg/dL 01/06/18 01/06/18 01/06/18 Range/Units 16:38 14:25 14:25 WBC (4.8-10.8) K/uL RBC (4.40-5.90) Mil/uL Hgb (12.0-18.0) g/dL Hct (35.0-51.0) % MCV (80.0-94.0) fL MCH (27.0-31.0) pg MCHC (33.0-37.0) g/dL RDW (11.5-14.5) % Plt Count (130-400) K/uL MPV (7.2-11.7) fL APTT (21-34) SECONDS Sodium 139 (132-148) mmol/L Potassium 5.7 H (3.6-5.2) mmol/L Chloride 104 (98-107) mmol/L Carbon Dioxide 21 L (22-30) mmol/L Anion Gap 20 (10-20) BUN 62 H (9-20) mg/dL Creatinine 2.4 H (0.8-1.5) mg/dL Est GFR ( Amer) 33 Est GFR (Non-Af Amer) 27 POC Glucose (mg/dL) 168 H (65-110) mg/dL Random Glucose 177 H (75-110) mg/dL Lactic Acid (0.7-2.1) mmol/L Calcium 8.3 L (8.6-10.4) mg/dl Phosphorus (2.5-4.5) mg/dL Magnesium (1.6-2.3) mg/dL Total Bilirubin (0.2-1.3) mg/dL AST (17-59) U/L ALT (21-72) U/L Alkaline Phosphatase (38-126) U/L Troponin I 4.4000 H* (0.00-0.120) ng/mL Total Protein (6.3-8.3) g/dL Albumin (3.5-5.0) g/dL Globulin (2.2-3.9) gm/dL Albumin/Globulin Ratio (1.0-2.1) Procalcitonin 1.18 H (0.19-0.49) NG/ML Urine Color (YELLOW) Urine Clarity (Clear) Urine pH (5.0-8.0) Ur Specific [place] (1.003-1.030) Urine Protein (NEGATIVE) mg/dL Urine Glucose (UA) (Normal) mg/dL Urine Ketones (NEGATIVE) mg/dL Urine Blood (NEGATIVE) Urine Nitrate (NEGATIVE) Urine Bilirubin (NEGATIVE) Urine Urobilinogen (0.2-1.0) mg/dL Ur Leukocyte Esterase (Negative) Julia/uL Urine WBC (Auto) (0-5) /hpf Urine RBC (Auto) (0-3) /hpf Amorphous Sediment (<OCC) /ul Urine Bacteria (<OCC) Random Vancomycin ug/mL Urine Opiates Screen (NEGATIVE) Urine Methadone Screen (NEGATIVE) Ur Barbiturates Screen (NEGATIVE) Ur Phencyclidine Scrn (NEGATIVE) Ur Amphetamines Screen (NEGATIVE) U Benzodiazepines Scrn (NEGATIVE) U Oth Cocaine Metabols (NEGATIVE) U Cannabinoids Screen (NEGATIVE) Complement C3 (88.0-165.0) mg/dL Complement C4 (14.0-44.0) mg/dL 01/06/18 01/06/18 01/06/18 Range/Units 14:25 11:41 11:41 WBC (4.8-10.8) K/uL RBC (4.40-5.90) Mil/uL Hgb (12.0-18.0) g/dL Hct (35.0-51.0) % MCV (80.0-94.0) fL MCH (27.0-31.0) pg MCHC (33.0-37.0) g/dL RDW (11.5-14.5) % Plt Count (130-400) K/uL MPV (7.2-11.7) fL APTT (21-34) SECONDS Sodium (132-148) mmol/L Potassium (3.6-5.2) mmol/L Chloride (98-107) mmol/L Carbon Dioxide (22-30) mmol/L Anion Gap (10-20) BUN (9-20) mg/dL Creatinine (0.8-1.5) mg/dL Est GFR ( Amer) Est GFR (Non-Af Amer) POC Glucose (mg/dL) (65-110) mg/dL Random Glucose (75-110) mg/dL Lactic Acid 2.5 H (0.7-2.1) mmol/L Calcium (8.6-10.4) mg/dl Phosphorus (2.5-4.5) mg/dL Magnesium (1.6-2.3) mg/dL Total Bilirubin (0.2-1.3) mg/dL AST (17-59) U/L ALT (21-72) U/L Alkaline Phosphatase (38-126) U/L Troponin I (0.00-0.120) ng/mL Total Protein (6.3-8.3) g/dL Albumin (3.5-5.0) g/dL Globulin (2.2-3.9) gm/dL Albumin/Globulin Ratio (1.0-2.1) Procalcitonin (0.19-0.49) NG/ML Urine Color [place] (YELLOW) Urine Clarity Hazy (Clear) Urine pH 5.0 (5.0-8.0) Ur Specific [place] 1.016 (1.003-1.030) Urine Protein 2+ H (NEGATIVE) mg/dL Urine Glucose (UA) Normal (Normal) mg/dL Urine Ketones Negative (NEGATIVE) mg/dL Urine Blood Negative (NEGATIVE) Urine Nitrate Negative (NEGATIVE) Urine Bilirubin Negative (NEGATIVE) Urine Urobilinogen 4.0 (0.2-1.0) mg/dL Ur Leukocyte Esterase Neg (Negative) Julia/uL Urine WBC (Auto) 4 (0-5) /hpf Urine RBC (Auto) 2 (0-3) /hpf Amorphous Sediment Rare H (<OCC) /ul Urine Bacteria Occ H (<OCC) Random Vancomycin ug/mL Urine Opiates Screen Negative (NEGATIVE) Urine Methadone Screen Negative (NEGATIVE) Ur Barbiturates Screen Negative (NEGATIVE) Ur Phencyclidine Scrn Negative (NEGATIVE) Ur Amphetamines Screen Negative (NEGATIVE) U Benzodiazepines Scrn Negative (NEGATIVE) U Oth Cocaine Metabols Negative (NEGATIVE) U Cannabinoids Screen Negative (NEGATIVE) Complement C3 (88.0-165.0) mg/dL Complement C4 (14.0-44.0) mg/dL 01/06/18 01/06/18 01/06/18 Range/Units 11:30 07:40 07:20 WBC (4.8-10.8) K/uL RBC (4.40-5.90) Mil/uL Hgb (12.0-18.0) g/dL Hct (35.0-51.0) % MCV (80.0-94.0) fL MCH (27.0-31.0) pg MCHC (33.0-37.0) g/dL RDW (11.5-14.5) % Plt Count (130-400) K/uL MPV (7.2-11.7) fL APTT (21-34) SECONDS Sodium 140 (132-148) mmol/L Potassium 5.6 H (3.6-5.2) mmol/L Chloride 103 (98-107) mmol/L Carbon Dioxide 23 (22-30) mmol/L Anion Gap 20 (10-20) BUN 56 H (9-20) mg/dL Creatinine 2.3 H (0.8-1.5) mg/dL Est GFR ( Amer) 35 Est GFR (Non-Af Amer) 29 POC Glucose (mg/dL) 188 H 190 H (65-110) mg/dL Random Glucose 194 H (75-110) mg/dL Lactic Acid (0.7-2.1) mmol/L Calcium 8.7 (8.6-10.4) mg/dl Phosphorus 7.5 H (2.5-4.5) mg/dL Magnesium 1.7 (1.6-2.3) mg/dL Total Bilirubin 1.5 H (0.2-1.3) mg/dL AST 711 H D (17-59) U/L ALT 579 H D (21-72) U/L Alkaline Phosphatase 390 H D (38-126) U/L Troponin I 3.8400 H* (0.00-0.120) ng/mL Total Protein 6.5 (6.3-8.3) g/dL Albumin 3.3 L D (3.5-5.0) g/dL Globulin 3.1 (2.2-3.9) gm/dL Albumin/Globulin Ratio 1.1 (1.0-2.1) Procalcitonin (0.19-0.49) NG/ML Urine Color (YELLOW) Urine Clarity (Clear) Urine pH (5.0-8.0) Ur Specific [place] (1.003-1.030) Urine Protein (NEGATIVE) mg/dL Urine Glucose (UA) (Normal) mg/dL Urine Ketones (NEGATIVE) mg/dL Urine Blood (NEGATIVE) Urine Nitrate (NEGATIVE) Urine Bilirubin (NEGATIVE) Urine Urobilinogen (0.2-1.0) mg/dL Ur Leukocyte Esterase (Negative) Julia/uL Urine WBC (Auto) (0-5) /hpf Urine RBC (Auto) (0-3) /hpf Amorphous Sediment (<OCC) /ul Urine Bacteria (<OCC) Random Vancomycin ug/mL Urine Opiates Screen (NEGATIVE) Urine Methadone Screen (NEGATIVE) Ur Barbiturates Screen (NEGATIVE) Ur Phencyclidine Scrn (NEGATIVE) Ur Amphetamines Screen (NEGATIVE) U Benzodiazepines Scrn (NEGATIVE) U Oth Cocaine Metabols (NEGATIVE) U Cannabinoids Screen (NEGATIVE) Complement C3 (88.0-165.0) mg/dL Complement C4 (14.0-44.0) mg/dL 01/06/18 01/06/18 Range/Units 07:20 07:20 WBC 8.6 (4.8-10.8) K/uL RBC 3.68 L (4.40-5.90) Mil/uL Hgb 10.7 L (12.0-18.0) g/dL Hct 33.0 L (35.0-51.0) % MCV 89.7 D (80.0-94.0) fL MCH 29.0 (27.0-31.0) pg MCHC 32.3 L (33.0-37.0) g/dL RDW 17.0 H (11.5-14.5) % Plt Count 425 H D (130-400) K/uL MPV 9.3 (7.2-11.7) fL APTT (21-34) SECONDS Sodium (132-148) mmol/L Potassium (3.6-5.2) mmol/L Chloride (98-107) mmol/L Carbon Dioxide (22-30) mmol/L Anion Gap (10-20) BUN (9-20) mg/dL Creatinine (0.8-1.5) mg/dL Est GFR ( Amer) Est GFR (Non-Af Amer) POC Glucose (mg/dL) (65-110) mg/dL Random Glucose (75-110) mg/dL Lactic Acid 2.8 H (0.7-2.1) mmol/L Calcium (8.6-10.4) mg/dl Phosphorus (2.5-4.5) mg/dL Magnesium (1.6-2.3) mg/dL Total Bilirubin (0.2-1.3) mg/dL AST (17-59) U/L ALT (21-72) U/L Alkaline Phosphatase (38-126) U/L Troponin I (0.00-0.120) ng/mL Total Protein (6.3-8.3) g/dL Albumin (3.5-5.0) g/dL Globulin (2.2-3.9) gm/dL Albumin/Globulin Ratio (1.0-2.1) Procalcitonin (0.19-0.49) NG/ML Urine Color (YELLOW) Urine Clarity (Clear) Urine pH (5.0-8.0) Ur Specific [place] (1.003-1.030) Urine Protein (NEGATIVE) mg/dL Urine Glucose (UA) (Normal) mg/dL Urine Ketones (NEGATIVE) mg/dL Urine Blood (NEGATIVE) Urine Nitrate (NEGATIVE) Urine Bilirubin (NEGATIVE) Urine Urobilinogen (0.2-1.0) mg/dL Ur Leukocyte Esterase (Negative) Julia/uL Urine WBC (Auto) (0-5) /hpf Urine RBC (Auto) (0-3) /hpf Amorphous Sediment (<OCC) /ul Urine Bacteria (<OCC) Random Vancomycin ug/mL Urine Opiates Screen (NEGATIVE) Urine Methadone Screen (NEGATIVE) Ur Barbiturates Screen (NEGATIVE) Ur Phencyclidine Scrn (NEGATIVE) Ur Amphetamines Screen (NEGATIVE) U Benzodiazepines Scrn (NEGATIVE) U Oth Cocaine Metabols (NEGATIVE) U Cannabinoids Screen (NEGATIVE) Complement C3 (88.0-165.0) mg/dL Complement C4 (14.0-44.0) mg/dL Laboratory Results - last 24 hr 01/06/18 01/06/18 01/06/18 07:20 07:20 07:20 WBC 8.6 RBC 3.68 L Hgb 10.7 L Hct 33.0 L MCV 89.7 D MCH 29.0 MCHC 32.3 L RDW 17.0 H Plt Count 425 H D MPV 9.3 APTT Sodium 140 Potassium 5.6 H Chloride 103 Carbon Dioxide 23 Anion Gap 20 BUN 56 H Creatinine 2.3 H Est GFR ( Amer) 35 Est GFR (Non-Af Amer) 29 POC Glucose (mg/dL) Random Glucose 194 H Lactic Acid 2.8 H Calcium 8.7 Phosphorus 7.5 H Magnesium 1.7 Total Bilirubin 1.5 H AST 711 H D ALT 579 H D Alkaline Phosphatase 390 H D Troponin I 3.8400 H* Total Protein 6.5 Albumin 3.3 L D Globulin 3.1 Albumin/Globulin Ratio 1.1 Procalcitonin Urine Color Urine Clarity Urine pH Ur Specific [place] Urine Protein Urine Glucose (UA) Urine Ketones Urine Blood Urine Nitrate Urine Bilirubin Urine Urobilinogen Ur Leukocyte Esterase Urine WBC (Auto) Urine RBC (Auto) Amorphous Sediment Urine Bacteria Random Vancomycin Urine Opiates Screen Urine Methadone Screen Ur Barbiturates Screen Ur Phencyclidine Scrn Ur Amphetamines Screen U Benzodiazepines Scrn U Oth Cocaine Metabols U Cannabinoids Screen Complement C3 Complement C4 01/06/18 01/06/18 01/06/18 07:40 11:30 11:41 WBC RBC Hgb Hct MCV MCH MCHC RDW Plt Count MPV APTT Sodium Potassium Chloride Carbon Dioxide Anion Gap BUN Creatinine Est GFR ( Amer) Est GFR (Non-Af Amer) POC Glucose (mg/dL) 190 H 188 H Random Glucose Lactic Acid Calcium Phosphorus Magnesium Total Bilirubin AST ALT Alkaline Phosphatase Troponin I Total Protein Albumin Globulin Albumin/Globulin Ratio Procalcitonin Urine Color Urine Clarity Urine pH Ur Specific [place] Urine Protein Urine Glucose (UA) Urine Ketones Urine Blood Urine Nitrate Urine Bilirubin Urine Urobilinogen Ur Leukocyte Esterase Urine WBC (Auto) Urine RBC (Auto) Amorphous Sediment Urine Bacteria Random Vancomycin Urine Opiates Screen Negative Urine Methadone Screen Negative Ur Barbiturates Screen Negative Ur Phencyclidine Scrn Negative Ur Amphetamines Screen Negative U Benzodiazepines Scrn Negative U Oth Cocaine Metabols Negative U Cannabinoids Screen Negative Complement C3 Complement C4 01/06/18 01/06/18 01/06/18 11:41 14:25 14:25 WBC RBC Hgb Hct MCV MCH MCHC RDW Plt Count MPV APTT Sodium 139 Potassium 5.7 H Chloride 104 Carbon Dioxide 21 L Anion Gap 20 BUN 62 H Creatinine 2.4 H Est GFR ( Amer) 33 Est GFR (Non-Af Amer) 27 POC Glucose (mg/dL) Random Glucose 177 H Lactic Acid 2.5 H Calcium 8.3 L Phosphorus Magnesium Total Bilirubin AST ALT Alkaline Phosphatase Troponin I 4.4000 H* Total Protein Albumin Globulin Albumin/Globulin Ratio Procalcitonin Urine Color Est[place]ita Urine Clarity Hazy Urine pH 5.0 Ur Specific [place] 1.016 Urine Protein 2+ H Urine Glucose (UA) Normal Urine Ketones Negative Urine Blood Negative Urine Nitrate Negative Urine Bilirubin Negative Urine Urobilinogen 4.0 Ur Leukocyte Esterase Neg Urine WBC (Auto) 4 Urine RBC (Auto) 2 Amorphous Sediment Rare H Urine Bacteria Occ H Random Vancomycin Urine Opiates Screen Urine Methadone Screen Ur Barbiturates Screen Ur Phencyclidine Scrn Ur Amphetamines Screen U Benzodiazepines Scrn U Oth Cocaine Metabols U Cannabinoids Screen Complement C3 Complement C4 01/06/18 01/06/18 01/06/18 14:25 16:38 16:44 WBC RBC Hgb Hct MCV MCH MCHC RDW Plt Count MPV APTT 35 H Sodium Potassium Chloride Carbon Dioxide Anion Gap BUN Creatinine Est GFR ( Amer) Est GFR (Non-Af Amer) POC Glucose (mg/dL) 168 H Random Glucose Lactic Acid Calcium Phosphorus Magnesium Total Bilirubin AST ALT Alkaline Phosphatase Troponin I Total Protein Albumin Globulin Albumin/Globulin Ratio Procalcitonin 1.18 H Urine Color Urine Clarity Urine pH Ur Specific [place] Urine Protein Urine Glucose (UA) Urine Ketones Urine Blood Urine Nitrate Urine Bilirubin Urine Urobilinogen Ur Leukocyte Esterase Urine WBC (Auto) Urine RBC (Auto) Amorphous Sediment Urine Bacteria Random Vancomycin Urine Opiates Screen Urine Methadone Screen Ur Barbiturates Screen Ur Phencyclidine Scrn Ur Amphetamines Screen U Benzodiazepines Scrn U Oth Cocaine Metabols U Cannabinoids Screen Complement C3 Complement C4 01/06/18 01/06/18 01/06/18 20:10 23:34 23:39 WBC RBC Hgb Hct MCV MCH MCHC RDW Plt Count MPV APTT 46 H D Sodium Potassium Chloride Carbon Dioxide Anion Gap BUN Creatinine Est GFR ( Amer) Est GFR (Non-Af Amer) POC Glucose (mg/dL) 139 H 169 H Random Glucose Lactic Acid Calcium Phosphorus Magnesium Total Bilirubin AST ALT Alkaline Phosphatase Troponin I Total Protein Albumin Globulin Albumin/Globulin Ratio Procalcitonin Urine Color Urine Clarity Urine pH Ur Specific [place] Urine Protein Urine Glucose (UA) Urine Ketones Urine Blood Urine Nitrate Urine Bilirubin Urine Urobilinogen Ur Leukocyte Esterase Urine WBC (Auto) Urine RBC (Auto) Amorphous Sediment Urine Bacteria Random Vancomycin Urine Opiates Screen Urine Methadone Screen Ur Barbiturates Screen Ur Phencyclidine Scrn Ur Amphetamines Screen U Benzodiazepines Scrn U Oth Cocaine Metabols U Cannabinoids Screen Complement C3 Complement C4 01/07/18 01/07/18 01/07/18 04:18 06:20 06:20 WBC RBC Hgb Hct MCV MCH MCHC RDW Plt Count MPV APTT Sodium Potassium 4.8 Chloride Carbon Dioxide 22 Anion Gap BUN 57 H Creatinine 2.8 H Est GFR ( Amer) 28 Est GFR (Non-Af Amer) 23 POC Glucose (mg/dL) 140 H Random Glucose 134 H Lactic Acid Calcium 8.3 L Phosphorus Magnesium 1.8 Total Bilirubin 1.1 AST 434 H D ALT 554 H Alkaline Phosphatase 353 H Troponin I Total Protein 6.2 L Albumin 3.3 L Globulin 2.9 Albumin/Globulin Ratio 1.1 Procalcitonin Urine Color Urine Clarity Urine pH Ur Specific [place] Urine Protein Urine Glucose (UA) Urine Ketones Urine Blood Urine Nitrate Urine Bilirubin Urine Urobilinogen Ur Leukocyte Esterase Urine WBC (Auto) Urine RBC (Auto) Amorphous Sediment Urine Bacteria Random Vancomycin 6.4 Urine Opiates Screen Urine Methadone Screen Ur Barbiturates Screen Ur Phencyclidine Scrn Ur Amphetamines Screen U Benzodiazepines Scrn U Oth Cocaine Metabols U Cannabinoids Screen Complement C3 Complement C4 01/07/18 01/07/18 06:20 06:20 WBC RBC Hgb Hct MCV MCH MCHC RDW Plt Count MPV APTT 35 H D Sodium Potassium Chloride Carbon Dioxide Anion Gap BUN Creatinine Est GFR ( Amer) Est GFR (Non-Af Amer) POC Glucose (mg/dL) Random Glucose Lactic Acid Calcium Phosphorus Magnesium Total Bilirubin AST ALT Alkaline Phosphatase Troponin I Total Protein Albumin Globulin Albumin/Globulin Ratio Procalcitonin Urine Color Urine Clarity Urine pH Ur Specific [place] Urine Protein Urine Glucose (UA) Urine Ketones Urine Blood Urine Nitrate Urine Bilirubin Urine Urobilinogen Ur Leukocyte Esterase Urine WBC (Auto) Urine RBC (Auto) Amorphous Sediment Urine Bacteria Random Vancomycin Urine Opiates Screen Urine Methadone Screen Ur Barbiturates Screen Ur Phencyclidine Scrn Ur Amphetamines Screen U Benzodiazepines Scrn U Oth Cocaine Metabols U Cannabinoids Screen Complement C3 104.0 Complement C4 23.7 EKG/Cardiology Studies: Cardiology / EKG Studies 01/06/18 08:03 ELECTROCARDIOGRAM Routine Comment: Mode Of Transportation: Reason For Exam: f/u, 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, tony and poss AV block 01/06/18 10:04 ELECTROCARDIOGRAM Routine Comment: Mode Of Transportation: Reason For Exam: reassess rhythm Fingerstick Blood Sugar Results: 140 Review of Systems - Review of Systems All systems: reviewed and no additional remarkable complaints except (as per subjective) Critical Care Progress Note - Nutrition Nutrition: Nutrition Category Date Time Status Renal Diet [DIET] Diets 01/06/18 Breakfast Active Assessment/Plan - Assessment and Plan (Free Text) Assessment: This is a 67 yo M with PMH of CAD s/p CABG 11 days ago, DM, and remote hx of cocaine abuse (claims last use > 20 yrs ago). He presented to for severe shortness of breath x2-3 days, and was admitted to ICU for NSTEMI s/p recent CABG, and signs of fluid overload. He developed anuric renal failure, s/p HD yesterday, pending another round tomorrow. Plan: Neuro: -awake and alert, afebrile -maintain normothermia Pulm: -Satting well on Vapotherm canula at 15L and 40% FiO2 -CXR today reviewed and compared to yesterday, R side appears unchanged and L appears marginally improved, pending official read -WBCs improved, afebrile, less likely PNA, more likely CXR findings from acute fluid overload, Cardio: -again tony to 40's overnight, but daytime HR high 50's to 80's, rhythm regular on examination -Echo obtained, EF 35%, moderate to severely impaired systolic function, mild MR, mild TR, flattened septum -Given CAD and recent CABG, now signs of diffuse fluid overload (LE and UE with pitting edema, lung cxr with bilateral effusions), concern for acute CHF vs renal failure -continue strict I's and O's -patient poor historian, unable to provide prior meds or pharmacy obtained from; can try to contact [facility] on Monday when Med Records dept open to obtain copy of discharge meds prescribed to patient -No beta-rosa due to overnight bradycardic episodes -Continue ASA, Plavix, Statin, Heparin drip -Trops: 3.95 -> 3.84 -> 4.4 (latest); suggestive of NSTEMI; continue heparin drip, pending repeat trop today -Cardio consulted, appreciate all recs GI: -Renal dialysis diet -Pepcid for GI ppx Renal: -K improved to 4.8 from 5.7 s/p HD, pending another episode tomorrow -Nephro following (Dr. Powers), appreciate all recs; Xray findings today may be effusion, and given borderline low normal BP, will undergo HD again tomorrow instead of today -Cr 1.9 on admit, 2.8 today -UDS obtained, negative for illicits Heme: -Hgb decreased from 10.7 to 10.2 -continue to monitor -Heparin drip covers for DVT ppx ID: -Leukocytosis resolved, WBCs remains 8.6 today -afebrile -Got Vanco and Zosyn x1 each in ED, can hold further doses for now and monitor Dispo: ICU, s/p HD yesterday, pending again tomorrow FEN: Renal dialysis diet Access: Peripheral IV x1, R groin TLC dialysis cath Consults: Nephro, Cardio Ppx: Heparin covers for DVT, Pepcid for GI CODE: Unknown, so Full by default Seen, reviewed, and discussed with attending, Dr. García
[2018-01-07 08:24] LABS: HEPATITIS B SURFACE AG Negative (NEGATIVE)
[2018-01-07 08:29] LABS: HEPATITIS B CORE AB NEGATIVE (NEGATIVE)
[2018-01-07 08:34] LABS: HEPATITIS B SURFACE AG Negative (NEGATIVE)
[2018-01-07 08:41] LABS: HEPATITIS C ANTIBODY NEGATIVE (NEGATIVE)
[2018-01-07 08:44] LABS: HEPATITIS B CORE AB NEGATIVE (NEGATIVE)
[2018-01-07 10:44] LABS: BASO % 0.2 % (0.0-2.0); EOS % 0.2 % (0.0-4.0); HEMOGLOBIN 10.2 g/dL (12.0-18.0); LYMPH # 0.5 K/uL (1.0-4.3); MEAN CELL VOLUME 88.8 fL (80.0-94.0); MEAN CORPUSCULAR HEMOGLOBIN 29.2 pg (27.0-31.0); MEAN CORPUSCULAR HGB CONC 32.9 g/dL (33.0-37.0); MEAN PLATELET VOLUME 8.9 fL (7.2-11.7); MONO # 0.6 K/uL (0.0-0.8); NEUT # 7.4 K/uL (1.8-7.0); NEUT % 86.6 % (50.0-75.0); NRBC % 0.1 % (0.0-2.0); PLATELET COUNT 344 K/uL (130-400); WHITE BLOOD COUNT 8.6 K/uL (4.8-10.8)
[2018-01-07 11:25] LABS: ANISOCYTOSIS SLIGHT; LYMPHOCYTE 4 % (20-40); MONOCYTE 6 % (0-10); NEUTROPHIL 90 % (50-75); PLATELET ESTIMATE NORMAL (NORMAL); TOTAL CELLS COUNTED 100
[2018-01-07 11:26] LABS: LARGE PLATELETS PRESENT; OVALOCYTES SLIGHT
--- NOTE | 2018-01-07 12:47 | RAD ---
Date of service: 01/07/2018 PROCEDURE: CHEST RADIOGRAPH, 1 VIEW HISTORY: fluid overload COMPARISON: January 06, 2018. FINDINGS: LUNGS: Stable pulmonary edema PLEURA: Stable bilateral pleural effusions CARDIOVASCULAR: Cardiomegaly/cardiogenic pulmonary edema OSSEOUS STRUCTURES: No significant abnormalities. VISUALIZED UPPER ABDOMEN: Normal. OTHER FINDINGS: None. IMPRESSION: Stable and presumed cardiogenic pulmonary edema.
--- NOTE | 2018-01-07 15:11 | CP.PCM.PN ---
Subjective - Date & Time of Evaluation Date of Evaluation: 01/07/18 Time of Evaluation: 09:00 - Subjective Subjective: Seen and examined this morning. Patient has mild to moderate SOB short of breath. Talking in full sentence. Denies chest pain s/p Dialysis yesterday. Patient feels better after dialysis. His is anuric. Follow repeat chest x ray. Has congestion on examination His HR was in 40ies last night. Patient was code heart on 11/25/2017. cath showed severe CAD,inferior wall and aterioapical wall Akinesis.old occluded RCA. LAD proximal 99% Steonis He was sent to [place] for CABG. Patient had CABG on 12/10/2017. Discharged home on lot of meds. Patient states that he was not able to pay for his money. He got approval to get meds? Objective - Vital Signs/Intake and Output Vital Signs (last 24 hours): Temp Pulse Resp BP Pulse Ox 96.2 F L 69 21 89/57 L 90 L 01/07/18 12:00 01/07/18 14:06 01/07/18 14:06 01/07/18 14:06 01/07/18 14:06 Intake and Output: 01/07/18 01/07/18 06:59 18:59 Intake Total 175.9 689.8 Output Total 110 110 Balance 65.9 579.8 - Medications Medications: Current Medications Aspirin (Aspirin Chewable) 81 mg PO DAILY [facility] Last Admin: 01/07/18 09:28 Dose: 81 mg Clopidogrel Bisulfate (Plavix) 75 mg PO DAILY [facility] Last Admin: 01/07/18 09:28 Dose: 75 mg Dextrose (Dextrose 50% Inj) 0 ml IV STAT PRN; Protocol PRN Reason: Hypoglycemia Protocol Dextrose (Glutose 15) 0 gm PO ONCE PRN; Protocol PRN Reason: Hypoglycemia Protocol Famotidine (Pepcid) 20 mg PO DAILY [facility] Last Admin: 01/07/18 09:28 Dose: 20 mg Furosemide (Lasix) 40 mg IVP DAILY [facility] Last Admin: 01/07/18 13:55 Dose: Not Given Glucagon (Glucagen Diagnostic Kit) 0 mg IM STAT PRN; Protocol PRN Reason: Hypoglycemia Protocol Dextrose (Dextrose 5% In Water 1000 Ml) 1,000 mls @ 0 mls/hr IV .Q0M PRN; Protocol PRN Reason: Hypoglycemia Protocol Heparin Sodium/Sodium Chloride (Heparin 81642 Units/250ml 1/2 Normal Saline) 25,000 units in 250 mls @ 5.674 mls/hr IV .Q24H PRN; Protocol PRN Reason: PROTOCOL Last Titration: 01/07/18 14:58 Dose: 23.79 units/kg/hr, 15 mls/hr Insulin Aspart (Novolog) 0 unit SC Q6 RIKI; Protocol Last Admin: 01/07/18 12:43 Dose: 1 u Rosuvastatin Calcium (Crestor) 5 mg PO HS RIKI Last Admin: 01/06/18 23:04 Dose: 5 mg - Labs Labs: 01/07/18 10:31 01/07/18 06:20 PT 16.0 SECONDS (9.7-12.2) H 01/05/18 20:09 INR 1.5 01/05/18 20:09 APTT 43 SECONDS (21-34) H D 01/07/18 14:14 - Constitutional Appears: No Acute Distress - Head Exam Head Exam: NORMAL INSPECTION - Eye Exam Eye Exam: Normal appearance Pupil Exam: NORMAL ACCOMODATION - ENT Exam ENT Exam: Mucous Membranes Moist - Neck Exam Neck Exam: Full ROM - Respiratory Exam Respiratory Exam: Rales (bilateral). absent: Clear to Ausculation Bilateral, NORMAL BREATHING PATTERN (sob) - Cardiovascular Exam Cardiovascular Exam: Bradycardia - GI/Abdominal Exam GI & Abdominal Exam: Soft, Normal Bowel Sounds - Extremities Exam Extremities Exam: Full ROM - Back Exam Back Exam: NORMAL INSPECTION - Neurological Exam Neurological Exam: Awake, Oriented x3 - Psychiatric Exam Psychiatric exam: Normal Mood - Skin Skin Exam: Dry Assessment and Plan - Assessment and Plan (Free Text) Plan: 1. Respiratory distress ,Acute CHF,Pulmonary edema,acute on chronic systolic heart failure Dr Dumont commercial intelligence manager consulted and he was seen by him last night On examination he has bilat basal rales Patient is congested and repeat chest x ray shows congestion. we will follow with police investigator for dialysis Not on beta blockers due to bradycardia,His BP was low also,not on ARB/ACEI We will continue heparin drip for 48hours, aspirin and plavix EKG shows first degree heart block and bradycardia with no acute ST T wave changes Echocardiography shows EF 34% Impaired systolic function 2.NSTMI s/p CABG,follow troponin conitnue asprin,plavix and heparin drip follow up with Dr Dumont 3.Acute on chronic renal failure and hyperkalemia Today's K improved,creatinine 2.8 and K 4.8 fluid restriction,dialysis as per DR Powers Monitor urine out put,not making urine ? History of noncompliance with his diabetes/chronic renal disease ?.No primary care avoid nephrotoxic drugs 4.Diabetes mellitus Patient was noncompliance HA1c 7.7 FS with coverage diabetic diet 5.Elevated lactic acid and right leg s/p vein harvest for CABG. r/O Infection Had one dose Vancomycin at ER.we will do Vanco level in the morning Empiric coverage Zosyn renal dose follow blood culture,serial lactic acid follow procalcitonin 6.Transaminitis shock liver h/o alcohol abuse follow LFT 7.Drug abuse Urine drug screen negative 8.Prophylaxis- dvt-on heparin'Gi on pepcid Discussed with his Son Aram Keen yesterday.( [phone]) Daughter Stacy Blas [phone]
[2018-01-07] MEDS: Heparin25000 units/250ml 1/2NS 25,000 UNITS/250 ML BAG IV PRN (18:01)
--- NOTE | 2018-01-07 18:09 | CT ---
Date of service: 01/07/2018 PROCEDURE: CT Chest, Abdomen and Pelvis without intravenous contrast HISTORY: Bilateral pleural effusion COMPARISON: None available. TECHNIQUE: Contiguous helical/transaxial sections of the chest abdomen pelvis performed without contrast. Radiation dose: Total exam DLP = 1503.51 mGy-cm. This CT exam was performed using one or more of the following dose reduction techniques: Automated exposure control, adjustment of the mA and/or kV according to patient size, and/or use of iterative reconstruct the ion technique. FINDINGS: CT CHEST WITHOUT CONTRAST: LUNGS: Large bilateral effusions right greater than left. There are bibasilar atelectatic changes present as well. Small calcified granuloma right anterior upper lobe. MEDIASTINUM: Heart is enlarged. Small medium-sized pericardial effusion.. There appears to be fluid within the anterior superior mediastinum as well. Ascending thoracic aorta measures 3.1 cm and descending thoracic aorta measures approximately 3.0 cm pulmonary trunk measures approximately 2.7 cm.. There appear to be a few small nonspecific mediastinal lymph nodes. Evaluation for hilar adenopathy is limited due to the lack of circulating intravenous contrast material. LYMPH NODES: .As above. PLEURA: As above. No pneumothorax BONES: Mild multilevel degenerative spondylosis of the thoracic spine OTHER FINDINGS: None. CT ABDOMEN AND PELVIS: LIVER: Liver exhibits normal size. Fatty infiltration felt to be present.. Moderate amount of Laquita patent ascites seen extending inferiorly along the right paracolic gutter and into the pelvis with a large amount of ascites in the pelvis as well.. GALLBLADDER AND BILE DUCTS: With a large amount gallbladder is physiologically distended. No evidence of intraluminal gallbladder calculi PANCREAS: Pancreas appears slightly atrophic and fatty replaced. No pancreatic masses or collections... SPLEEN: Spleen exhibits normal size. Small splenic calcification consistent with prior exposure to a granulomatous disease process ADRENALS: Mildly enlarged adrenal glands.. KIDNEYS AND URETERS: Kidneys demonstrate relatively symmetric size. No evidence of nephrolithiasis or hydronephrosis. VASCULATURE: Unremarkable. No aortic aneurysm. BOWEL: Evaluation of the bowel is limited due to the lack of oral contrast material. . Stomach is incompletely distended with mild gastric wall thickening. Multiple mildly distended fluid-filled loops of small bowel. Stool and air seen throughout the large bowel. No evidence of acute mechanical small large-bowel obstruction. APPENDIX: Normal appendix. PERITONEUM: Large amount of ascites as above. No gross free intraperitoneal air diffuse anasarca. LYMPH NODES: Unremarkable. No enlarged lymph nodes. BLADDER: Urinary bladder is collapsed about an in situ unclamped Anne catheter. Urinary bladder wall is thickened likely due to collapse; muscular hypertrophy may contribute. Note however cystitis or intrinsic/invasive wall lesion not excluded. Small amount of air within the urinary bladder likely due to instrumentation. REPRODUCTIVE: Unremarkable. BONES: Multilevel degenerative spondylosis of the lower thoracic and lumbar spine. OTHER FINDINGS: None. IMPRESSION: Large bilateral effusions and atelectasis right greater than left. Cardiomegaly with moderate-sized pericardial effusion. Fluid extends superiorly along the anterior mid mediastinum as well. Moderately large amount of perihepatic ascites and pelvic ascites. Diffuse anasarca. Urinary bladder wall collapsed about in in situ unclamped Anne catheter. Bladder wall thickening in part due to collapse as well muscular hypertrophy however cystitis or other intrinsic/invasive wall lesion not excluded. Small amount of air is also present within the bladder lumen
--- NOTE | 2018-01-07 22:06 | CP.PCM.PN ---
Subjective - Date & Time of Evaluation Date of Evaluation: 01/07/18 Time of Evaluation: 13:00 - Subjective Subjective: Patient still with dyspnea but improved; still on high flow O2, tolerating diet; reports drinking lot of water; Objective - Vital Signs/Intake and Output Vital Signs (last 24 hours): Temp Pulse Resp BP Pulse Ox 97.2 F L 73 17 92/63 L 97 01/07/18 15:42 01/07/18 19:00 01/07/18 20:20 01/07/18 18:37 01/07/18 19:00 Intake and Output: 01/07/18 01/08/18 18:59 06:59 Intake Total 1142.0 Output Total 200 Balance 942.0 - Medications Medications: Current Medications Aspirin (Aspirin Chewable) 81 mg PO DAILY [facility] Last Admin: 01/07/18 09:28 Dose: 81 mg Clopidogrel Bisulfate (Plavix) 75 mg PO DAILY [facility] Last Admin: 01/07/18 09:28 Dose: 75 mg Dextrose (Dextrose 50% Inj) 0 ml IV STAT PRN; Protocol PRN Reason: Hypoglycemia Protocol Dextrose (Glutose 15) 0 gm PO ONCE PRN; Protocol PRN Reason: Hypoglycemia Protocol Famotidine (Pepcid) 20 mg PO DAILY [facility] Last Admin: 01/07/18 09:28 Dose: 20 mg Furosemide (Lasix) 40 mg IVP DAILY [facility] Last Admin: 01/07/18 13:55 Dose: Not Given Glucagon (Glucagen Diagnostic Kit) 0 mg IM STAT PRN; Protocol PRN Reason: Hypoglycemia Protocol Dextrose (Dextrose 5% In Water 1000 Ml) 1,000 mls @ 0 mls/hr IV .Q0M PRN; Pr otocol PRN Reason: Hypoglycemia Protocol Heparin Sodium/Sodium Chloride (Heparin 62571 Units/250ml 1/2 Normal Saline) 25,000 units in 250 mls @ 5.674 mls/hr IV .Q24H PRN; Protocol PRN Reason: PROTOCOL Last Admin: 01/07/18 18:01 Dose: 15 units/kg/hr, 9.457 mls/hr Insulin Aspart (Novolog) 0 unit SC Q6 RIKI; Protocol Last Admin: 01/07/18 18:31 Dose: Not Given Rosuvastatin Calcium (Crestor) 5 mg PO HS [facility] Last Admin: 01/07/18 21:52 Dose: 5 mg - Labs Labs: 01/07/18 10:31 01/07/18 06:20 PT 16.0 SECONDS (9.7-12.2) H 01/05/18 20:09 INR 1.5 01/05/18 20:09 APTT 46 SECONDS (21-34) H 01/07/18 21:14 - Constitutional Appears: Non-toxic, No Acute Distress - Respiratory Exam Respiratory Exam: absent: Respiratory Distress Additional comments: decreased breath sounds at bases; - Cardiovascular Exam Cardiovascular Exam: RRR, +S1, +S2. absent: Gallop, Rubs - GI/Abdominal Exam GI & Abdominal Exam: Soft. absent: Distended, Tenderness - Exam Exam: absent: Bladder Distension - Extremities Exam Additional comments: marked b/l leg edema; - Neurological Exam Neurological Exam: Alert, Awake - Psychiatric Exam Psychiatric exam: Normal Mood. absent: Agitated - Skin Skin Exam: Warm. absent: Cyanosis Assessment and Plan (1) Acute renal failure Assessment & Plan: Oliguric renal failure; may be multifactorial with ATN insult in the setting of bradycardia/hypotension as well as cardiorenal component with severe systolic CHF; initiated on HD yesterday with net 1.7L UF, however, has been hypotensive since then; still with high flow O2 requirement but appears related to large pleural effusions rather than pulmonary vascular congestion; -Will hold HD today as patient still mildly hypotensive; -Next HD for tomorrow for both clearance and for UF; may need daily HD sessions with low UF goal (1-1.5L); -Avoid nephrotoxic agents; -Keep MAP > 65 to allow for renal recovery; -Consider inotropic support or vasopressor (dopamine or even levophed?); Status: Acute (2) Heart failure, systolic, with acute decompensation Assessment & Plan: Severe systolic dysfunction; unclear if this is related to new NSTEMI; with large pleural effusions and ensuing hypoxemic respiratory failure; will target euvolemia with UF on HD; should consider thoracentesis for large effusions as these are not readily removed by HD; Status: Acute (3) CKD (chronic kidney disease) Assessment & Plan: Proteinuric kidney disease likely due to DM; serologic workup sent looking for other possible causes, will f/u; Status: Chronic (4) NSTEMI (non-ST elevated myocardial infarction) Status: Acute - Assessment and Plan (Free Text) Assessment: Critical care time spent > 35 minutes;
[2018-01-07] MEDS ORDERED: Tramadol 25 mg PO STA (22:25)
--- NOTE | 2018-01-07 23:55 | CP.PCM.CON ---
History of Present Illness - History of Present Illness History of Present Illness: consult for chf / cad / nstemi Review of Systems - Review of Systems Systems not reviewed;Unavailable: Acuity of Condition - Constitutional Constitutional: As Per HPI - EENT Eyes: As Per HPI Ears: As Per HPI Nose/Mouth/Throat: As Per HPI - Cardiovascular Cardiovascular: As Per HPI - Respiratory Respiratory: As Per HPI - Gastrointestinal Gastrointestinal: As Per HPI - Genitourinary Genitourinary: As Per HPI - Reproductive: Male Reproductive:Male: As Per HPI - Musculoskeletal Musculoskeletal: As Per HPI - Integumentary Integumentary: As Per HPI - Neurological Neurological: As Per HPI - Psychiatric Psychiatric: As Per HPI - Endocrine Endocrine: As Per HPI - Hematologic/Lymphatic Hematologic: As Per HPI Past Patient History - Tetanus Immunizations Tetanus Immunization: Unknown - Past Medical History & Family History Past Medical History?: Yes - Past Social History Smoking Status: Never Smoked - CARDIAC Hx Cardiac Disorders: Yes Other/Comment: open heart 12/2017 - PULMONARY Hx Respiratory Disorders: No - NEUROLOGICAL Hx Neurological Disorder: No - HEENT Hx HEENT Problems: No - RENAL Hx Chronic Kidney Disease: No - ENDOCRINE/METABOLIC Hx Diabetes Mellitus Type 2: Yes - HEMATOLOGICAL/ONCOLOGICAL Hx Blood Disorders: No - INTEGUMENTARY Hx Dermatological Problems: No - MUSCULOSKELETAL/RHEUMATOLOGICAL Hx Musculoskeletal Disorders: No - GASTROINTESTINAL Hx Gastrointestinal Disorders: No - GENITOURINARY/GYNECOLOGICAL Hx Genitourinary Disorders: No - PSYCHIATRIC Hx Substance Use: No - SURGICAL HISTORY Hx Surgeries: No - ANESTHESIA Hx Anesthesia: No Meds Allergies/Adverse Reactions: Allergies Allergy/AdvReac Type Severity Reaction Status Date / Time No Known Allergies Allergy Verified 01/05/18 20:19 - Medications Medications: Current Medications Aspirin (Aspirin Chewable) 81 mg PO DAILY [facility] Last Admin: 01/07/18 09:28 Dose: 81 mg Clopidogrel Bisulfate (Plavix) 75 mg PO DAILY [facility] Last Admin: 01/07/18 09:28 Dose: 75 mg Dextrose (Dextrose 50% Inj) 0 ml IV STAT PRN; Protocol PRN Reason: Hypoglycemia Protocol Dextrose (Glutose 15) 0 gm PO ONCE PRN; Protocol PRN Reason: Hypoglycemia Protocol Famotidine (Pepcid) 20 mg PO DAILY [facility] Last Admin: 01/07/18 09:28 Dose: 20 mg Furosemide (Lasix) 40 mg IVP DAILY [facility] Last Admin: 01/07/18 13:55 Dose: Not Given Glucagon (Glucagen Diagnostic Kit) 0 mg IM STAT PRN; Protocol PRN Reason: Hypoglycemia Protocol Dextrose (Dextrose 5% In Water 1000 Ml) 1,000 mls @ 0 mls/hr IV .Q0M PRN; Protocol PRN Reason: Hypoglycemia Protocol Heparin Sodium/Sodium Chloride (Heparin 62874 Units/250ml 1/2 Normal Saline) 25,000 units in 250 mls @ 5.674 mls/hr IV .Q24H PRN; Protocol PRN Reason: PROTOCOL Last Admin: 01/07/18 18:01 Dose: 15 units/kg/hr, 9.457 mls/hr Insulin Aspart (Novolog) 0 unit SC Q6 RIKI; Protocol Last Admin: 01/07/18 18:31 Dose: Not Given Rosuvastatin Calcium (Crestor) 5 mg PO HS [facility] Last Admin: 01/07/18 21:52 Dose: 5 mg Results - Vital Signs Recent Vital Signs: Last Vital Signs Temp 97.2 F L 01/07/18 15:42 Pulse 73 01/07/18 19:00 Resp 17 01/07/18 20:20 BP 92/63 L 01/07/18 18:37 Pulse Ox 97 01/07/18 19:00 - Labs Result Diagrams: 01/07/18 10:31 01/07/18 06:20 Labs: Laboratory Results - last 24 hr 01/06/18 01/06/18 01/06/18 17:35 17:35 17:35 WBC RBC Hgb Hct MCV MCH MCHC RDW Plt Count MPV Neut % (Auto) Lymph % (Auto) Lake % (Auto) Eos % (Auto) Baso % (Auto) Neut # (Auto) Lymph # (Auto) Lake # (Auto) Eos # (Auto) Baso # (Auto) Neutrophils % (Manual) Lymphocytes % (Manual) Monocytes % (Manual) Platelet Estimate Large Platelets Anisocytosis (manual) Ovalocytes APTT Sodium Potassium Chloride Carbon Dioxide Anion Gap BUN Creatinine Est GFR ( Amer) Est GFR (Non-Af Amer) POC Glucose (mg/dL) Random Glucose Hemoglobin A1c Calcium Phosphorus Magnesium Total Bilirubin AST ALT Alkaline Phosphatase Troponin I Total Protein Albumin Globulin Albumin/Globulin Ratio TSH 3rd Generation Random Vancomycin Complement C3 Complement C4 RPR Hep Bs Antigen Negative Negative Hep Bs Antibody Negative Hep B Core IgM Ab Negative Negative Hepatitis C Antibody Negative 01/06/18 01/07/18 01/07/18 17:35 04:18 06:20 WBC RBC Hgb Hct MCV MCH MCHC RDW Plt Count MPV Neut % (Auto) Lymph % (Auto) Lake % (Auto) Eos % (Auto) Baso % (Auto) Neut # (Auto) Lymph # (Auto) Lake # (Auto) Eos # (Auto) Baso # (Auto) Neutrophils % (Manual) Lymphocytes % (Manual) Monocytes % (Manual) Platelet Estimate Large Platelets Anisocytosis (manual) Ovalocytes APTT Sodium 140 Potassium 4.8 Chloride 103 Carbon Dioxide 22 Anion Gap 20 BUN 57 H Creatinine 2.8 H Est GFR ( Amer) 28 Est GFR (Non-Af Amer) 23 POC Glucose (mg/dL) 140 H Random Glucose 134 H Hemoglobin A1c Calcium 8.3 L Phosphorus 6.9 H Magnesium 1.8 Total Bilirubin 1.1 AST 434 H D ALT 554 H Alkaline Phosphatase 353 H Troponin I Total Protein 6.2 L Albumin 3.3 L Globulin 2.9 Albumin/Globulin Ratio 1.1 TSH 3rd Generation 1.98 Random Vancomycin Complement C3 Complement C4 RPR Hep Bs Antigen Hep Bs Antibody Negative Hep B Core IgM Ab Hepatitis C Antibody 01/07/18 01/07/18 01/07/18 06:20 06:20 06:20 WBC RBC Hgb Hct MCV MCH MCHC RDW Plt Count MPV Neut % (Auto) Lymph % (Auto) Lake % (Auto) Eos % (Auto) Baso % (Auto) Neut # (Auto) Lymph # (Auto) Lake # (Auto) Eos # (Auto) Baso # (Auto) Neutrophils % (Manual) Lymphocytes % (Manual) Monocytes % (Manual) Platelet Estimate Large Platelets Anisocytosis (manual) Ovalocytes APTT Sodium Potassium Chloride Carbon Dioxide Anion Gap BUN Creatinine Est GFR ( Amer) Est GFR (Non-Af Amer) POC Glucose (mg/dL) Random Glucose Hemoglobin A1c 7.7 H Calcium Phosphorus Magnesium Total Bilirubin AST ALT Alkaline Phosphatase Troponin I Total Protein Albumin Globulin Albumin/Globulin Ratio TSH 3rd Generation Random Vancomycin 6.4 Complement C3 104.0 Complement C4 23.7 RPR Hep Bs Antigen Hep Bs Antibody Hep B Core IgM Ab Hepatitis C Antibody 01/07/18 01/07/18 01/07/18 06:20 06:20 10:31 WBC 8.6 RBC 3.50 L Hgb 10.2 L Hct 31.1 L MCV 88.8 MCH 29.2 MCHC 32.9 L RDW 17.0 H Plt Count 344 MPV 8.9 Neut % (Auto) 86.6 H Lymph % (Auto) 6.0 L Lake % (Auto) 7.0 Eos % (Auto) 0.2 Baso % (Auto) 0.2 Neut # (Auto) 7.4 H Lymph # (Auto) 0.5 L Lake # (Auto) 0.6 Eos # (Auto) 0.0 Baso # (Auto) 0.0 Neutrophils % (Manual) 90 H Lymphocytes % (Manual) 4 L Monocytes % (Manual) 6 Platelet Estimate Normal Large Platelets Present Anisocytosis (manual) Slight Ovalocytes Slight APTT 35 H D Sodium Potassium Chloride Carbon Dioxide Anion Gap BUN Creatinine Est GFR ( Amer) Est GFR (Non-Af Amer) POC Glucose (mg/dL) Random Glucose Hemoglobin A1c Calcium Phosphorus Magnesium Total Bilirubin AST ALT Alkaline Phosphatase Troponin I Total Protein Albumin Globulin Albumin/Globulin Ratio TSH 3rd Generation Random Vancomycin Complement C3 Complement C4 RPR Nonreactive Hep Bs Antigen Hep Bs Antibody Hep B Core IgM Ab Hepatitis C Antibody 01/07/18 01/07/18 01/07/18 11:29 14:14 16:48 WBC RBC Hgb Hct MCV MCH MCHC RDW Plt Count MPV Neut % (Auto) Lymph % (Auto) Lake % (Auto) Eos % (Auto) Baso % (Auto) Neut # (Auto) Lymph # (Auto) Lake # (Auto) Eos # (Auto) Baso # (Auto) Neutrophils % (Manual) Lymphocytes % (Manual) Monocytes % (Manual) Platelet Estimate Large Platelets Anisocytosis (manual) Ovalocytes APTT 43 H D Sodium Potassium Chloride Carbon Dioxide Anion Gap BUN Creatinine Est GFR ( Amer) Est GFR (Non-Af Amer) POC Glucose (mg/dL) 182 H Random Glucose Hemoglobin A1c Calcium Phosphorus Magnesium Total Bilirubin AST ALT Alkaline Phosphatase Troponin I 3.9600 H* Total Protein Albumin Globulin Albumin/Globulin Ratio TSH 3rd Generation Random Vancomycin Complement C3 Complement C4 RPR Hep Bs Antigen Hep Bs Antibody Hep B Core IgM Ab Hepatitis C Antibody 01/07/18 01/07/18 18:05 21:14 WBC RBC Hgb Hct MCV MCH MCHC RDW Plt Count MPV Neut % (Auto) Lymph % (Auto) Lake % (Auto) Eos % (Auto) Baso % (Auto) Neut # (Auto) Lymph # (Auto) Lake # (Auto) Eos # (Auto) Baso # (Auto) Neutrophils % (Manual) Lymphocytes % (Manual) Monocytes % (Manual) Platelet Estimate Large Platelets Anisocytosis (manual) Ovalocytes APTT 46 H Sodium Potassium Chloride Carbon Dioxide Anion Gap BUN Creatinine Est GFR ( Amer) Est GFR (Non-Af Amer) POC Glucose (mg/dL) 147 H Random Glucose Hemoglobin A1c Calcium Phosphorus Magnesium Total Bilirubin AST ALT Alkaline Phosphatase Troponin I Total Protein Albumin Globulin Albumin/Globulin Ratio TSH 3rd Generation Random Vancomycin Complement C3 Complement C4 RPR Hep Bs Antigen Hep Bs Antibody Hep B Core IgM Ab Hepatitis C Antibody Assessment & Plan (1) Acute pulmonary edema Status: Acute (2) Acute renal failure Status: Acute (3) Heart failure, systolic, with acute decompensation Status: Acute (4) Hypotension Status: Acute (5) NSTEMI (non-ST elevated myocardial infarction) Status: Acute (6) CKD (chronic kidney disease) Status: Chronic
[2018-01-08] MEDS: (Novolog) Insulin Aspart, Recombinant 100 u/ml 10 ml vial SC SCH ×6 (06:00→22:00)
[2018-01-08 06:24] LABS: BASO % 0.6 % (0.0-2.0); EOS # 0.1 K/uL (0.0-0.7); EOS % 0.8 % (0.0-4.0); HEMOGLOBIN 9.9 g/dL (12.0-18.0); LYMPH # 0.6 K/uL (1.0-4.3); MEAN CELL VOLUME 89.4 fL (80.0-94.0); MEAN CORPUSCULAR HEMOGLOBIN 28.7 pg (27.0-31.0); MEAN CORPUSCULAR HGB CONC 32.1 g/dL (33.0-37.0); MEAN PLATELET VOLUME 8.4 fL (7.2-11.7); MONO # 0.7 K/uL (0.0-0.8); MONO % 9.7 % (0.0-10.0); NEUT # 5.6 K/uL (1.8-7.0); NEUT % 79.9 % (50.0-75.0); NRBC % 0.1 % (0.0-2.0); PLATELET COUNT 330 K/uL (130-400); RBC 3.45 Mil/uL (4.40-5.90); RED CELL DISTRIBUTION WIDTH 16.7 % (11.5-14.5)
[2018-01-08 06:35] LABS: IRON 34 ug/dL (49-181)
[2018-01-08 06:44] LABS: % IRON SATURATION 12 (20-55); TOTAL IRON BINDING CAPACITY 292 ug/dL (250-450)
[2018-01-08 06:49] LABS: CREATININE, RANDOM URINE 29.1 mg/dL
[2018-01-08 07:04] LABS: ALBUMIN 3.4 g/dL (3.5-5.0); CALCIUM 8.3 mg/dl (8.6-10.4)
[2018-01-08 08:56] LABS: LYMPHOCYTE 13 % (20-40); MONOCYTE 9 % (0-10); NEUTROPHIL 78 % (50-75); PLATELET ESTIMATE NORMAL (NORMAL); TOTAL CELLS COUNTED 100
[2018-01-08 08:57] LABS: ANISOCYTOSIS SLIGHT
[2018-01-08 09:01] LABS: BURR CELLS SLIGHT; HYPOCHROMIC SLIGHT; POIKILOCYTOSIS SLIGHT; TARGET CELLS SLIGHT
--- NOTE | 2018-01-08 09:46 | CP.PCM.PN ---
<Melonie Han - Last Filed: 01/08/18 16:27> Subjective - Date & Time of Evaluation Date of Evaluation: 01/08/18 Time of Evaluation: 08:25 - Subjective Subjective: Melonie Han DO, PGY-2: Nephrology Progress Note for Dr. Powers Patient was seen and examined at bedside. Patient is on high flow oxygen and about to undergo dialysis session. Case was discussed with ICU resident and attending. Objective - Vital Signs/Intake and Output Vital Signs (last 24 hours): Temp Pulse Resp BP Pulse Ox 97.3 F L 78 17 115/67 97 01/08/18 09:08 01/08/18 09:08 01/08/18 09:08 01/08/18 09:08 01/08/18 07:00 Intake and Output: 01/08/18 01/08/18 06:59 18:59 Intake Total 126.0 9.5 Output Total 125 Balance 1.0 9.5 - Medications Medications: Current Medications Aspirin (Aspirin Chewable) 81 mg PO DAILY [facility] Last Admin: 01/07/18 09:28 Dose: 81 mg Clopidogrel Bisulfate (Plavix) 75 mg PO DAILY [facility] Last Admin: 01/07/18 09:28 Dose: 75 mg Dextrose (Dextrose 50% Inj) 0 ml IV STAT PRN; Protocol PRN Reason: Hypoglycemia Protocol Dextrose (Glutose 15) 0 gm PO ONCE PRN; Protocol PRN Reason: Hypoglycemia Protocol Famotidine (Pepcid) 20 mg PO DAILY [facility] Last Admin: 01/07/18 09:28 Dose: 20 mg Furosemide (Lasix) 40 mg IVP DAILY [facility] Last Admin: 01/07/18 13:55 Dose: Not Given Glucagon (Glucagen Diagnostic Kit) 0 mg IM STAT PRN; Protocol PRN Reason: Hypoglycemia Protocol Dextrose (Dextrose 5% In Water 1000 Ml) 1,000 mls @ 0 mls/hr IV .Q0M PRN; Protocol PRN Reason: Hypoglycemia Protocol Heparin Sodium/Sodium Chloride (Heparin 66666 Units/250ml 1/2 Normal Saline) 25,000 units in 250 mls @ 5.674 mls/hr IV .Q24H PRN; Protocol PRN Reason: PROTOCOL Last Admin: 01/07/18 18:01 Dose: 15 units/kg/hr, 9.457 mls/hr Insulin Aspart (Novolog) 0 unit SC Q6 [facility]; Protocol Last Admin: 01/08/18 06:00 Dose: Not Given Rosuvastatin Calcium (Crestor) 5 mg PO HS [facility] Last Admin: 01/07/18 21:52 Dose: 5 mg - Labs Labs: 01/08/18 06:16 01/08/18 06:16 PT 16.0 SECONDS (9.7-12.2) H 01/05/18 20:09 INR 1.5 01/05/18 20:09 APTT 32 SECONDS (21-34) D 01/08/18 06:16 - Constitutional Appears: Non-toxic - Head Exam Head Exam: ATRAUMATIC, NORMOCEPHALIC - Eye Exam Eye Exam: EOMI, Normal appearance - ENT Exam ENT Exam: Mucous Membranes Moist - Neck Exam Neck Exam: Normal Inspection - Respiratory Exam Respiratory Exam: Rales - Cardiovascular Exam Cardiovascular Exam: RRR - GI/Abdominal Exam GI & Abdominal Exam: Distended, Normal Bowel Sounds. absent: Guarding - Extremities Exam Additional comments: 3/4 pitting edema bilaterally - Neurological Exam Neurological Exam: Alert, Awake, Oriented x3 - Psychiatric Exam Psychiatric exam: Normal Affect, Normal Mood - Skin Skin Exam: Dry, Intact, Normal Color, Warm Assessment and Plan - Assessment and Plan (Free Text) Assessment: (1) Acute renal failure Assessment & Plan: Oliguric renal failure; may be multifactorial with ATN insult in the setting of bradycardia/hypotension as well as cardiorenal component with severe systolic CHF; initiated on HD yesterday with net 1.7L UF, however, has been hypotensive since then; still with high flow O2 requirement but appears related to large pleural effusions rather than pulmonary vascular congestion; -Will hold HD today as patient still mildly hypotensive; -Next HD for today and tomorrow for both clearance and for UF; may need daily HD sessions with low UF goal (1-1.5L); -Avoid nephrotoxic agents; -Keep MAP > 65 to allow for renal recovery; -Consider inotropic support or vasopressor (dopamine or even levophed). Patient is now on [place]ine 10 mg TID to prevent hypotension Status: Acute (2) Heart failure, systolic, with acute decompensation Assessment & Plan: Severe systolic dysfunction; unclear if this is related to new NSTEMI; with large pleural effusions and ensuing hypoxemic respiratory failure; will target euvolemia with UF on HD; should consider thoracentesis for large effusions as t hese are not readily removed by HD; Status: Acute (3) CKD (chronic kidney disease) Assessment & Plan: Proteinuric kidney disease likely due to DM; serologic workup sent looking for other possible causes, will f/u; Status: Chronic (4) NSTEMI (non-ST elevated myocardial infarction) Status: Acute <Maynor Powers - Last Filed: 01/09/18 08:11> Objective - Vital Signs/Intake and Output Vital Signs (last 24 hours): Temp Pulse Resp BP Pulse Ox 97.8 F 74 21 102/50 L 89 L 01/09/18 04:00 01/09/18 07:00 01/09/18 07:50 01/09/18 06:57 01/09/18 07:00 Intake and Output: 01/09/18 01/09/18 06:59 18:59 Intake Total 344 12 Output Total 50 Balance 344 -38 - Medications Medications: Current Medications Aspirin (Aspirin Chewable) 81 mg PO DAILY [facility] Last Admin: 01/08/18 11:18 Dose: 81 mg Clopidogrel Bisulfate (Plavix) 75 mg PO DAILY [facility] Last Admin: 01/08/18 11:20 Dose: 75 mg Dextrose (Dextrose 50% Inj) 0 ml IV STAT PRN; Protocol PRN Reason: Hypoglycemia Protocol Dextrose (Glutose 15) 0 gm PO ONCE PRN; Protocol PRN Reason: Hypoglycemia Protocol Famotidine (Pepcid) 20 mg PO DAILY [facility] Last Admin: 01/08/18 11:21 Dose: 20 mg Furosemide (Lasix) 40 mg IVP DAILY [facility] Last Admin: 01/08/18 14:09 Dose: Not Given Glucagon (Glucagen Diagnostic Kit) 0 mg IM STAT PRN; Protocol PRN Reason: Hypoglycemia Protocol Heparin Sodium/Sodium Chloride (Heparin 87965 Units/250ml 1/2 Normal Saline) 25,000 units in 250 mls @ 5.674 mls/hr IV .Q24H PRN; Protocol PRN Reason: PROTOCOL Last Admin: 01/08/18 21:55 Dose: 30.13 units/kg/hr, 19 mls/hr Insulin Aspart (Novolog) 0 unit SC ACHS [facility]; Protocol Midodrine (Proamatine) 10 mg PO TID [facility] Last Admin: 01/08/18 17:39 Dose: 10 mg Rosuvastatin Calcium (Crestor) 5 mg PO HS [facility] Last Admin: 01/08/18 21:32 Dose: 5 mg - Labs Labs: 01/09/18 06:41 01/09/18 06:41 PT 16.0 SECONDS (9.7-12.2) H 01/05/18 20:09 INR 1.5 01/05/18 20:09 APTT 60 SECONDS (21-34) H D 01/09/18 06:41 Assessment and Plan (1) Acute renal failure Status: Acute (2) Heart failure, systolic, with acute decompensation Status: Acute (3) CKD (chronic kidney disease) Status: Chronic (4) NSTEMI (non-ST elevated myocardial infarction) Status: Acute Attending/Attestation - Attestation I have personally seen and examined this patient.: Yes I have fully participated in the care of the patient.: Yes I have reviewed all pertinent clinical information, including history, physical exam and plan: Yes Notes (Text): Patient seen and examined; I agree with the resident's note as above with the following additions/edits: Patient with htn, dm, CAD s/p CABG, CHF w/ systolic dysfunction, CKD, admitted with NSTEMI, acute decompensated CHF, and acute renal failure; Initiated on HD over weekend in the setting of oligo-anuria; UO improved but still borderline oliguric; still on high low O2 with large bilateral pleural effusions; will continue HD today to help keep negative fluid balance though effusions need further workup and may not resolve easily even with daily dialysis; Still borderline hypotensive, started on midodrine 10 mg tid; Should f/u with cardiology recs for regarding NSTEMI and acute CHF exacerbation; events are relatively recent as the ensuing TRAVIS indicates (serum creatinine only modestly elevated elevated on presentation); may benefit from daily HD to optimize volume status;
--- NOTE | 2018-01-08 10:05 | CARD ---
APPROVED REPORT Date of service: 01/05/2018 EKG Measurement Heart [id number] <Conclusion> Sinus rhythm with 2nd degree AV block with 2:1 AV conduction Possible Left atrial enlargement Inferior infarct, possibly acute ACUTE NC / STEMI Consider right ventricular involvement in acute inferior infarct Abnormal ECG
--- NOTE | 2018-01-08 13:10 | CP.PCM.PN ---
Subjective - Date & Time of Evaluation Date of Evaluation: 01/08/18 Time of Evaluation: 08:45 - Subjective Subjective: Patient was seen and examined by me, he was actively getting his second session of HD this morning when I saw him. He reports that overall his breathing is much easier compared to when he first came to the ER. Patient is not a great historian, per review of the the previous notes he a past medical history of CAD, recent CABG, NSTEMI, DM, HTN He was recently at [facility] after having an NSTEMI and determined to require a CABG surgery and then released. He was not clear what medication he needed to be on. When he came to the ER he was noted to have elevated renal function and concern is for cardiorenal syndrome. He has now had two HD sessions. Objective - Vital Signs/Intake and Output Vital Signs (last 24 hours): Temp Pulse Resp BP Pulse Ox 97.3 F L 78 17 97/50 L 100 01/08/18 09:08 01/08/18 09:08 01/08/18 10:44 01/08/18 12:10 01/08/18 09:08 Intake and Output: 01/08/18 01/08/18 06:59 18:59 Intake Total 126.0 109.5 Output Total 125 Balance 1.0 109.5 - Medications Medications: Current Medications Aspirin (Aspirin Chewable) 81 mg PO DAILY [facility] Last Admin: 01/08/18 11:18 Dose: 81 mg Clopidogrel Bisulfate (Plavix) 75 mg PO DAILY [facility] Last Admin: 01/08/18 11:20 Dose: 75 mg Dextrose (Dextrose 50% Inj) 0 ml IV STAT PRN; Protocol PRN Reason: Hypoglycemia Protocol Dextrose (Glutose 15) 0 gm PO ONCE PRN; Protocol PRN Reason: Hypoglycemia Protocol Famotidine (Pepcid) 20 mg PO DAILY [facility] Last Admin: 01/08/18 11:21 Dose: 20 mg Furosemide (Lasix) 40 mg IVP DAILY [facility] Last Admin: 01/07/18 13:55 Dose: Not Given Glucagon (Glucagen Diagnostic Kit) 0 mg IM STAT PRN; Protocol PRN Reason: Hypoglycemia Protocol Dextrose (Dextrose 5% In Water 1000 Ml) 1,000 mls @ 0 mls/hr IV .Q0M PRN; Protocol PRN Reason: Hypoglycemia Protocol Heparin Sodium/Sodium Chloride (Heparin 28119 Units/250ml 1/2 Normal Saline) 25,000 units in 250 mls @ 5.674 mls/hr IV .Q24H PRN; Protocol PRN Reason: PROTOCOL Last Titration: 01/08/18 11:21 Dose: 30.13 units/kg/hr, 19 mls/hr Insulin Aspart (Novolog) 0 unit SC Q6 [facility]; Protocol Last Admin: 01/08/18 06:00 Dose: Not Given Midodrine (Proamatine) 10 mg PO TID [facility] Last Admin: 01/08/18 10:10 Dose: 10 mg Rosuvastatin Calcium (Crestor) 5 mg PO HS [facility] Last Admin: 01/07/18 21:52 Dose: 5 mg - Labs Labs: 01/08/18 06:16 01/08/18 06:16 PT 16.0 SECONDS (9.7-12.2) H 01/05/18 20:09 INR 1.5 01/05/18 20:09 APTT 32 SECONDS (21-34) D 01/08/18 06:16 Assessment and Plan - Assessment and Plan (Free Text) Assessment: 1. Respiratory distress ,Acute CHF,Pulmonary edema,acute on chronic systolic heart failure 01/08: Patient reports breathing is signifigantluy better than on admission. He now has had two sessions of HD The BB temporarily held for time being due to bradycardia,His BP was low also,not on ARB/ACEI EKG shows first degree heart block and bradycardia with no acute ST T wave changes Echocardiography shows EF 34% Impaired systolic function 2. Elevated troponins. 01/08: Remains on ASA, plavix. He recently went to [facility] for CABG and then was discharged. s/p CABG,follow troponin 3. Acute on chronic renal failure and hyperkalemia Now on seconda HD session fluid restriction,dialysis as per DR Powers History of noncompliance with his diabetes/chronic renal disease ?.No primary care avoid nephrotoxic drugs 4. Diabetes mellitus 01/08 Currently on novolog SSI 5. Elevated lactic acid and right leg s/p vein harvest for CABG. R/O Infection Had one dose Vancomycin at ER.we will do Vanco level in the morning Empiric coverage Zosyn renal dose follow blood culture,serial lactic acid follow procalcitonin
--- NOTE | 2018-01-08 13:26 | RAD ---
Date of service: 01/08/2018 HISTORY: f/u pleural effusion/fluid overload COMPARISON: 01/07/2018. FINDINGS: LUNGS: There is airspace disease in both lower lobes. PLEURA: No change in moderate pleural effusions, no pneumothorax apparent. CARDIOVASCULAR: Persistent moderate cardiomegaly. Status post CABG. OSSEOUS STRUCTURES: No significant abnormalities. VISUALIZED UPPER ABDOMEN: Normal. OTHER FINDINGS: None. IMPRESSION: No change in presumable congestive heart failure with moderate pleural effusions.
--- NOTE | 2018-01-08 17:13 | CP.PCM.PN ---
Subjective - Date & Time of Evaluation Date of Evaluation: 01/08/18 Time of Evaluation: 17:10 - Subjective Subjective: Cardiology Progress Note Alison Erickson, PGY-[address] Dumont Patient seen and examined this morning. Offers no complaints at this time. Patient continues to be hypotensive, will try HD tomorrow. Objective - Vital Signs/Intake and Output Vital Signs (last 24 hours): Temp Pulse Resp BP Pulse Ox 97.3 F L 59 L 15 94/47 L 95 01/08/18 12:40 01/08/18 16:00 01/08/18 15:00 01/08/18 14:56 01/08/18 16:00 Intake and Output: 01/08/18 01/08/18 06:59 18:59 Intake Total 126.0 398.0 Output Total 125 130 Balance 1.0 268.0 - Medications Medications: Current Medications Aspirin (Aspirin Chewable) 81 mg PO DAILY [facility] Last Admin: 01/08/18 11:18 Dose: 81 mg Clopidogrel Bisulfate (Plavix) 75 mg PO DAILY [facility] Last Admin: 01/08/18 11:20 Dose: 75 mg Dextrose (Dextrose 50% Inj) 0 ml IV STAT PRN; Protocol PRN Reason: Hypoglycemia Protocol Dextrose (Glutose 15) 0 gm PO ONCE PRN; Protocol PRN Reason: Hypoglycemia Protocol Famotidine (Pepcid) 20 mg PO DAILY [facility] Last Admin: 01/08/18 11:21 Dose: 20 mg Furosemide (Lasix) 40 mg IVP DAILY [facility] Last Admin: 01/08/18 14:09 Dose: Not Given Glucagon (Glucagen Diagnostic Kit) 0 mg IM STAT PRN; Protocol PRN Reason: Hypoglycemia Protocol Dextrose (Dextrose 5% In Water 1000 Ml) 1,000 mls @ 0 mls/hr IV .Q0M PRN; Protocol PRN Reason: Hypoglycemia Protocol Heparin Sodium/Sodium Chloride (Heparin 22719 Units/250ml 1/2 Normal Saline) 25,000 units in 250 mls @ 5.674 mls/hr IV .Q24H PRN; Protocol PRN Reason: PROTOCOL Last Titration: 01/08/18 11:21 Dose: 30.13 units/kg/hr, 19 mls/hr Insulin Aspart (Novolog) 0 unit SC Q6 [facility]; Protocol Last Admin: 01/08/18 14:05 Dose: Not Given Midodrine (Proamatine) 10 mg PO TID [facility] Last Admin: 01/08/18 14:07 Dose: 10 mg Rosuvastatin Calcium (Crestor) 5 mg PO HS [facility] Last Admin: 01/07/18 21:52 Dose: 5 mg - Labs Labs: 01/08/18 06:16 01/08/18 06:16 PT 16.0 SECONDS (9.7-12.2) H 01/05/18 20:09 INR 1.5 01/05/18 20:09 APTT 32 SECONDS (21-34) D 01/08/18 06:16 - Constitutional Appears: No Acute Distress - Head Exam Head Exam: ATRAUMATIC, NORMAL INSPECTION - Eye Exam Eye Exam: EOMI Pupil Exam: PERRL - ENT Exam ENT Exam: Mucous Membranes Moist - Respiratory Exam Respiratory Exam: Clear to Ausculation Bilateral. absent: Respiratory Distress - Cardiovascular Exam Cardiovascular Exam: REGULAR RHYTHM, +S1, +S2 - GI/Abdominal Exam GI & Abdominal Exam: Normal Bowel Sounds. absent: Guarding, Rigid - Extremities Exam Extremities Exam: Normal Inspection. absent: Calf Tenderness - Neurological Exam Neurological Exam: Alert, Oriented x3 - Skin Skin Exam: Normal Color, Warm Assessment and Plan - Assessment and Plan (Free Text) Assessment: This is a 67 year old male with PMH of CAD s/p CABG 11/2017 presenting to [facility] for management of acute on chronic systolic heart failure. Plan: Acute on chronic systolic heart failure -will repeat BNP -will repeat echo -CXR shows findings consistent with CHF and pleural effusions -continue lasix -continue midodrine CKD -will try HD tomorrow, hypotensive today Case discussed with Dr. Dumont, further recommendations per Dr. Dumont
--- NOTE | 2018-01-08 17:32 | CP.CCUPN ---
<Pao Mello L - Last Filed: 01/08/18 17:58> CCU Subjective - Physician Review Subjective (Free Text): Resident Critical Care Progress Note Patient examined at bedside receiving hemodialysis. States he is feeling better today and that his shortness of breath has improved. Offers no other complaints at this time. Denies fevers, chills, headaches, dizziness, chest pain, abdominal pain. Critical Care Time Spent (in minutes): 35 CCU Objective - Vital Signs / Intake & Output Vital Signs (Last 4 hours): Vital Signs Pulse Resp BP Pulse Ox 01/08/18 16:00 59 L 95 01/08/18 15:00 56 L 15 97 01/08/18 14:56 54 L 17 94/47 L 97 01/08/18 14:32 64 25 H 89/56 L 97 01/08/18 14:14 19 01/08/18 14:00 60 16 98 Intake and Output (Last 8hrs): Intake & Output 01/08/18 01/08/18 01/08/18 06:59 14:59 22:59 Intake Total 47.5 374.0 24 Output Total 125 130 Balance -77.5 374.0 -106 Intake: IV 100 Intake, IV Amount 47.5 74.0 24 Right Antecubital 47.5 74.0 24 Oral 200 Output: Urine 125 130 Urethral (Anne) 125 130 - Physical Exam Head: Positive for: Atraumatic, Normocephalic Pupils: Negative for: Non-Reactive, Pinpoint Extroacular Muscles: Positive for: EOMI Conjunctiva: Positive for: Normal Mouth: Positive for: Moist Mucous Membranes. Negative for: Dry, Drooling Nose (External): Positive for: Atraumatic. Negative for: Abrasion, Contusion, Laceration Nose (Internal): Positive for: No Active Bleeding. Negative for: Epistaxis Neck: Positive for: Normal Range of Motion, Trachea Midline Respiratory/Chest: Positive for: Good Air Exchange. Negative for: Clear to Auscultation, Respiratory Distress, Accessory Muscle Use, Wheezes, Rhonchi Cardiovascular: Positive for: Regular Rate and Rhythm, Normal S1, S2. Negative for: Murmurs Abdomen: Positive for: Normal Bowel Sounds. Negative for: Tenderness, Distention Upper Extremity: Positive for: Normal ROM. Negative for: Normal Inspection, Tenderness, Erythema Lower Extremity: Negative for: CALF TENDERNESS Neurological: Positive for: GCS=15, Speech Normal Skin: Positive for: Dry, Normal Color. Negative for: Pale Psychiatric: Positive for: Alert, Oriented x 3, Normal Affect, Normal Mood - Medications Active Medications: Active Medications Generic Name Dose Route Start Last Admin Trade Name Freq PRN Reason Stop Dose Admin Aspirin 81 mg 01/06/18 10:00 01/08/18 11:18 Aspirin Chewable PO 81 mg DAILY RIKI Administration Clopidogrel Bisulfate 75 mg 01/06/18 10:00 01/08/18 11:20 Plavix PO 75 mg DAILY RIKI Administration Dextrose 0 ml 01/06/18 03:37 Dextrose 50% Inj IV STAT PRN Hypoglycemia Protocol Protocol Dextrose 0 gm 01/06/18 03:37 Glutose 15 PO ONCE PRN Hypoglycemia Protocol Protocol Famotidine 20 mg 01/06/18 10:00 01/08/18 11:21 Pepcid PO 20 mg DAILY RIKI Administration Furosemide 40 mg 01/06/18 10:00 01/08/18 14:09 Lasix IVP Not Given DAILY [facility] Glucagon 0 mg 01/06/18 03:37 Glucagen Diagnostic Kit IM STAT PRN Hypoglycemia Protocol Protocol Dextrose 1,000 mls @ 0 mls/hr 01/06/18 03:37 Dextrose 5% In Water 1000 Ml IV .Q0M PRN Hypoglycemia Protocol Protocol Per Protocol Heparin Sodium/Sodium Chloride 25,000 units in 250 mls @ 5.674 mls/hr 01/06/18 08:17 01/08/18 11:21 Heparin 96744 Units/250ml 1/2 Normal Saline IV 30.13 units/kg/hr .Q24H PRN 19 mls/hr PROTOCOL Titration Protocol 9 UNITS/KG/HR Insulin Aspart 0 unit 01/07/18 12:00 01/08/18 14:05 Novolog SC Not Given Q6 [facility] Protocol Midodrine 10 mg 01/08/18 10:00 01/08/18 14:07 Proamatine PO 10 mg TID RIKI Administration Rosuvastatin Calcium 5 mg 01/06/18 22:00 01/07/18 21:52 Crestor PO 5 mg HS RIKI Administration - Patient Studies Lab Studies: Microbiology Studies 01/06/18 07:20 Gram Stain - Final Leg - Right Wound Culture - Preliminary Proteus Mirabilis Gram Negative Channing Gram Positive Cocci 01/05/18 20:48 Blood Culture - Preliminary Blood NO GROWTH AFTER 48 HOURS 01/05/18 20:18 Blood Culture - Preliminary Blood NO GROWTH AFTER 48 HOURS Lab Studies 01/08/18 01/08/18 01/08/18 Range/Units 11:28 06:16 06:16 WBC (4.8-10.8) K/uL RBC (4.40-5.90) Mil/uL Hgb (12.0-18.0) g/dL Hct (35.0-51.0) % MCV (80.0-94.0) fL MCH (27.0-31.0) pg MCHC (33.0-37.0) g/dL RDW (11.5-14.5) % Plt Count (130-400) K/uL MPV (7.2-11.7) fL Neut % (Auto) (50.0-75.0) % Lymph % (Auto) (20.0-40.0) % [place] % (Auto) (0.0-10.0) % Eos % (Auto) (0.0-4.0) % Baso % (Auto) (0.0-2.0) % Neut # (Auto) (1.8-7.0) K/uL Lymph # (Auto) (1.0-4.3) K/uL [place] # (Auto) (0.0-0.8) K/uL Eos # (Auto) (0.0-0.7) K/uL Baso # (Auto) (0.0-0.2) K/uL Neutrophils % (Manual) (50-75) % Lymphocytes % (Manual) (20-40) % Monocytes % (Manual) (0-10) % Platelet Estimate (NORMAL) Hypochromasia (manual) Poikilocytosis (manual Anisocytosis (manual) Target Cells [place] Cells APTT 32 D (21-34) SECONDS Sodium (132-148) mmol/L Potassium (3.6-5.2) mmol/L Chloride (98-107) mmol/L Carbon Dioxide (22-30) mmol/L Anion Gap (10-20) BUN (9-20) mg/dL Creatinine (0.8-1.5) mg/dL Est GFR ( Amer) Est GFR (Non-Af Amer) POC Glucose (mg/dL) 109 (65-110) mg/dL Random Glucose (75-110) mg/dL Calcium (8.6-10.4) mg/dl Magnesium (1.6-2.3) mg/dL Iron 34 L (49-181) ug/dL TIBC 292 (250-450) ug/dL % Saturation 12 L (20-55) Ferritin ng/mL Total Bilirubin (0.2-1.3) mg/dL AST (17-59) U/L ALT (21-72) U/L Alkaline Phosphatase (38-126) U/L Troponin I (0.00-0.120) ng/mL Total Protein (6.3-8.3) g/dL Total Protein (PEP) (6.1-8.1) g/dL Albumin (3.5-5.0) g/dL Globulin (2.2-3.9) gm/dL Albumin/Globulin Ratio (1.0-2.1) Ur Random Creatinine mg/dL Ur Random Sodium mmol/L 01/08/18 01/08/18 01/08/18 Range/Units 06:16 06:16 06:16 WBC 7.0 (4.8-10.8) K/uL RBC 3.45 L (4.40-5.90) Mil/uL Hgb 9.9 L (12.0-18.0) g/dL Hct 30.8 L (35.0-51.0) % MCV 89.4 (80.0-94.0) fL MCH 28.7 (27.0-31.0) pg MCHC 32.1 L (33.0-37.0) g/dL RDW 16.7 H (11.5-14.5) % Plt Count 330 (130-400) K/uL MPV 8.4 (7.2-11.7) fL Neut % (Auto) 79.9 H (50.0-75.0) % Lymph % (Auto) 9.0 L (20.0-40.0) % [place] % (Auto) 9.7 (0.0-10.0) % Eos % (Auto) 0.8 (0.0-4.0) % Baso % (Auto) 0.6 (0.0-2.0) % Neut # (Auto) 5.6 (1.8-7.0) K/uL Lymph # (Auto) 0.6 L (1.0-4.3) K/uL [place] # (Auto) 0.7 (0.0-0.8) K/uL Eos # (Auto) 0.1 (0.0-0.7) K/uL Baso # (Auto) 0.0 (0.0-0.2) K/uL Neutrophils % (Manual) 78 H (50-75) % Lymphocytes % (Manual) 13 L (20-40) % Monocytes % (Manual) 9 (0-10) % Platelet Estimate Normal (NORMAL) Hypochromasia (manual) Slight Poikilocytosis (manual Slight Anisocytosis (manual) Slight Target Cells Slight [place] Cells Slight APTT (21-34) SECONDS Sodium 137 (132-148) mmol/L Potassium 5.2 (3.6-5.2) mmol/L Chloride 102 (98-107) mmol/L Carbon Dioxide 22 (22-30) mmol/L Anion Gap 19 (10-20) BUN 71 H (9-20) mg/dL Creatinine 3.6 H (0.8-1.5) mg/dL Est GFR ( Amer) 21 Est GFR (Non-Af Amer) 17 POC Glucose (mg/dL) (65-110) mg/dL Random Glucose 98 (75-110) mg/dL Calcium 8.3 L (8.6-10.4) mg/dl Magnesium 2.0 (1.6-2.3) mg/dL Iron (49-181) ug/dL TIBC (250-450) ug/dL % Saturation (20-55) Ferritin 1500.0 ng/mL Total Bilirubin 0.9 (0.2-1.3) mg/dL AST 282 H D (17-59) U/L ALT 511 H (21-72) U/L Alkaline Phosphatase 338 H (38-126) U/L Troponin I (0.00-0.120) ng/mL Total Protein 6.6 (6.3-8.3) g/dL Total Protein (PEP) (6.1-8.1) g/dL Albumin 3.4 L (3.5-5.0) g/dL Globulin 3.3 (2.2-3.9) gm/dL Albumin/Globulin Ratio 1.0 (1.0-2.1) Ur Random Creatinine 29.1 mg/dL Ur Random Sodium 94 mmol/L 01/08/18 01/07/18 01/07/18 Range/Units 05:27 23:51 21:14 WBC (4.8-10.8) K/uL RBC (4.40-5.90) Mil/uL Hgb (12.0-18.0) g/dL Hct (35.0-51.0) % MCV (80.0-94.0) fL MCH (27.0-31.0) pg MCHC (33.0-37.0) g/dL RDW (11.5-14.5) % Plt Count (130-400) K/uL MPV (7.2-11.7) fL Neut % (Auto) (50.0-75.0) % Lymph % (Auto) (20.0-40.0) % [place] % (Auto) (0.0-10.0) % Eos % (Auto) (0.0-4.0) % Baso % (Auto) (0.0-2.0) % Neut # (Auto) (1.8-7.0) K/uL Lymph # (Auto) (1.0-4.3) K/uL [place] # (Auto) (0.0-0.8) K/uL Eos # (Auto) (0.0-0.7) K/uL Baso # (Auto) (0.0-0.2) K/uL Neutrophils % (Manual) (50-75) % Lymphocytes % (Manual) (20-40) % Monocytes % (Manual) (0-10) % Platelet Estimate (NORMAL) Hypochromasia (manual) Poikilocytosis (manual Anisocytosis (manual) Target Cells [place] Cells APTT 46 H (21-34) SECONDS Sodium (132-148) mmol/L Potassium (3.6-5.2) mmol/L Chloride (98-107) mmol/L Carbon Dioxide (22-30) mmol/L Anion Gap (10-20) BUN (9-20) mg/dL Creatinine (0.8-1.5) mg/dL Est GFR ( Amer) Est GFR (Non-Af Amer) POC Glucose (mg/dL) 102 118 H (65-110) mg/dL Random Glucose (75-110) mg/dL Calcium (8.6-10.4) mg/dl Magnesium (1.6-2.3) mg/dL Iron (49-181) ug/dL TIBC (250-450) ug/dL % Saturation (20-55) Ferritin ng/mL Total Bilirubin (0.2-1.3) mg/dL AST (17-59) U/L ALT (21-72) U/L Alkaline Phosphatase (38-126) U/L Troponin I (0.00-0.120) ng/mL Total Protein (6.3-8.3) g/dL Total Protein (PEP) (6.1-8.1) g/dL Albumin (3.5-5.0) g/dL Globulin (2.2-3.9) gm/dL Albumin/Globulin Ratio (1.0-2.1) Ur Random Creatinine mg/dL Ur Random Sodium mmol/L 01/07/18 01/07/18 01/07/18 Range/Units 18:05 16:48 11:30 WBC (4.8-10.8) K/uL RBC (4.40-5.90) Mil/uL Hgb (12.0-18.0) g/dL Hct (35.0-51.0) % MCV (80.0-94.0) fL MCH (27.0-31.0) pg MCHC (33.0-37.0) g/dL RDW (11.5-14.5) % Plt Count (130-400) K/uL MPV (7.2-11.7) fL Neut % (Auto) (50.0-75.0) % Lymph % (Auto) (20.0-40.0) % [place] % (Auto) (0.0-10.0) % Eos % (Auto) (0.0-4.0) % Baso % (Auto) (0.0-2.0) % Neut # (Auto) (1.8-7.0) K/uL Lymph # (Auto) (1.0-4.3) K/uL [place] # (Auto) (0.0-0.8) K/uL Eos # (Auto) (0.0-0.7) K/uL Baso # (Auto) (0.0-0.2) K/uL Neutrophils % (Manual) (50-75) % Lymphocytes % (Manual) (20-40) % Monocytes % (Manual) (0-10) % Platelet Estimate (NORMAL) Hypochromasia (manual) Poikilocytosis (manual Anisocytosis (manual) Target Cells [place] Cells APTT (21-34) SECONDS Sodium (132-148) mmol/L Potassium (3.6-5.2) mmol/L Chloride (98-107) mmol/L Carbon Dioxide (22-30) mmol/L Anion Gap (10-20) BUN (9-20) mg/dL Creatinine (0.8-1.5) mg/dL Est GFR ( Amer) Est GFR (Non-Af Amer) POC Glucose (mg/dL) 147 H (65-110) mg/dL Random Glucose (75-110) mg/dL Calcium (8.6-10.4) mg/dl Magnesium (1.6-2.3) mg/dL Iron (49-181) ug/dL TIBC (250-450) ug/dL % Saturation (20-55) Ferritin ng/mL Total Bilirubin (0.2-1.3) mg/dL AST (17-59) U/L ALT (21-72) U/L Alkaline Phosphatase (38-126) U/L Troponin I 3.9600 H* (0.00-0.120) ng/mL Total Protein (6.3-8.3) g/dL Total Protein (PEP) 5.9 L (6.1-8.1) g/dL Albumin (3.5-5.0) g/dL Globulin (2.2-3.9) gm/dL Albumin/Globulin Ratio (1.0-2.1) Ur Random Creatinine mg/dL Ur Random Sodium mmol/L Laboratory Results - last 24 hr 01/07/18 01/07/18 01/07/18 11:30 16:48 18:05 WBC RBC Hgb Hct MCV MCH MCHC RDW Plt Count MPV Neut % (Auto) Lymph % (Auto) [place] % (Auto) Eos % (Auto) Baso % (Auto) Neut # (Auto) Lymph # (Auto) [place] # (Auto) Eos # (Auto) Baso # (Auto) Neutrophils % (Manual) Lymphocytes % (Manual) Monocytes % (Manual) Platelet Estimate Hypochromasia (manual) Poikilocytosis (manual Anisocytosis (manual) Target Cells [place] Cells APTT Sodium Potassium Chloride Carbon Dioxide Anion Gap BUN Creatinine Est GFR ( Amer) Est GFR (Non-Af Amer) POC Glucose (mg/dL) 147 H Random Glucose Calcium Magnesium Iron TIBC % Saturation Ferritin Total Bilirubin AST ALT Alkaline Phosphatase Troponin I 3.9600 H* Total Protein Total Protein (PEP) 5.9 L Albumin Globulin Albumin/Globulin Ratio Ur Random Creatinine Ur Random Sodium 01/07/18 01/07/18 01/08/18 21:14 23:51 05:27 WBC RBC Hgb Hct MCV MCH MCHC RDW Plt Count MPV Neut % (Auto) Lymph % (Auto) [place] % (Auto) Eos % (Auto) Baso % (Auto) Neut # (Auto) Lymph # (Auto) [place] # (Auto) Eos # (Auto) Baso # (Auto) Neutrophils % (Manual) Lymphocytes % (Manual) Monocytes % (Manual) Platelet Estimate Hypochromasia (manual) Poikilocytosis (manual Anisocytosis (manual) Target Cells [place] Cells APTT 46 H Sodium Potassium Chloride Carbon Dioxide Anion Gap BUN Creatinine Est GFR ( Amer) Est GFR (Non-Af Amer) POC Glucose (mg/dL) 118 H 102 Random Glucose Calcium Magnesium Iron TIBC % Saturation Ferritin Total Bilirubin AST ALT Alkaline Phosphatase Troponin I Total Protein Total Protein (PEP) Albumin Globulin Albumin/Globulin Ratio Ur Random Creatinine Ur Random Sodium 01/08/18 01/08/18 01/08/18 06:16 06:16 06:16 WBC 7.0 RBC 3.45 L Hgb 9.9 L Hct 30.8 L MCV 89.4 MCH 28.7 MCHC 32.1 L RDW 16.7 H Plt Count 330 MPV 8.4 Neut % (Auto) 79.9 H Lymph % (Auto) 9.0 L [place] % (Auto) 9.7 Eos % (Auto) 0.8 Baso % (Auto) 0.6 Neut # (Auto) 5.6 Lymph # (Auto) 0.6 L [place] # (Auto) 0.7 Eos # (Auto) 0.1 Baso # (Auto) 0.0 Neutrophils % (Manual) 78 H Lymphocytes % (Manual) 13 L Monocytes % (Manual) 9 Platelet Estimate Normal Hypochromasia (manual) Slight Poikilocytosis (manual Slight Anisocytosis (manual) Slight Target Cells Slight [place] Cells Slight APTT Sodium 137 Potassium 5.2 Chloride 102 Carbon Dioxide 22 Anion Gap 19 BUN 71 H Creatinine 3.6 H Est GFR ( Amer) 21 Est GFR (Non-Af Amer) 17 POC Glucose (mg/dL) Random Glucose 98 Calcium 8.3 L Magnesium 2.0 Iron TIBC % Saturation Ferritin 1500.0 Total Bilirubin 0.9 AST 282 H D ALT 511 H Alkaline Phosphatase 338 H Troponin I Total Protein 6.6 Total Protein (PEP) Albumin 3.4 L Globulin 3.3 Albumin/Globulin Ratio 1.0 Ur Random Creatinine 29.1 Ur Random Sodium 94 01/08/18 01/08/18 01/08/18 06:16 06:16 11:28 WBC RBC Hgb Hct MCV MCH MCHC RDW Plt Count MPV Neut % (Auto) Lymph % (Auto) [place] % (Auto) Eos % (Auto) Baso % (Auto) Neut # (Auto) Lymph # (Auto) [place] # (Auto) Eos # (Auto) Baso # (Auto) Neutrophils % (Manual) Lymphocytes % (Manual) Monocytes % (Manual) Platelet Estimate Hypochromasia (manual) Poikilocytosis (manual Anisocytosis (manual) Target Cells [place] Cells APTT 32 D Sodium Potassium Chloride Carbon Dioxide Anion Gap BUN Creatinine Est GFR ( Amer) Est GFR (Non-Af Amer) POC Glucose (mg/dL) 109 Random Glucose Calcium Magnesium Iron 34 L TIBC 292 % Saturation 12 L Ferritin Total Bilirubin AST ALT Alkaline Phosphatase Troponin I Total Protein Total Protein (PEP) Albumin Globulin Albumin/Globulin Ratio Ur Random Creatinine Ur Random Sodium Fingerstick Blood Sugar Results: 109 Review of Systems - Review of Systems All systems: reviewed and no additional remarkable complaints except (as mentioned in HPI) Critical Care Progress Note - Prophylaxis GI Prophylaxis GI: Pepsid - Nutrition Nutrition: Nutrition Category Date Time Status Renal Diet [DIET] Diets 01/06/18 Breakfast Active Assessment/Plan - Assessment and Plan (Free Text) Assessment: 67 yo M with PMH of CAD s/p CABG 11 days ago, DM, and remote hx of cocaine abuse (claims last use > 20 yrs ago), presenting to with severe shortness of breath x2-3 days, and was admitted to ICU for NSTEMI s/p recent CABG, and signs of fluid overload. He developed anuric renal failure, s/p HD today. Plan: Neuro: - AAOx3 - maintain normothermia Pulm: - Vapotherm canula at 15L and 40% FiO2 - CXR today shows no change in presumable CHF with moderate pleural effusions - WBCs improved, afebrile Cardio: -again tony to 40's overnight, but daytime HR high 50's to 80's, rhythm regular on examination -Echo obtained, EF 35%, moderate to severely impaired systolic function, mild MR, mild TR, flattened septum -Given CAD and recent CABG, now signs of diffuse fluid overload (LE and UE with pitting edema, lung cxr with bilateral effusions), concern for acute CHF vs renal failure -continue strict I's and O's -No beta-rosa due to overnight bradycardic episodes -Continue ASA, Plavix, Statin, Heparin drip -Trops: 3.95 -> 3.84 -> 4.4 (latest); suggestive of NSTEMI; continue heparin drip, pending repeat trop today -Cardio consulted, appreciate all recs GI: -Renal dialysis diet -Pepcid for GI ppx Renal: -K improved to 4.8 from 5.7 s/p HD, pending another episode tomorrow -Nephro following (Dr. Powers), appreciate all recs -Cr 1.9 on admit, 2.8 today -UDS negative Heme: -continue to monitor Hgb -Heparin drip covers for DVT ppx ID: -Leukocytosis resolved -afebrile -Got Vanco and Zosyn x1 each in ED Dispo: ICU, s/p HD today FEN: Renal dialysis diet Access: Peripheral IV x1, R groin TLC dialysis cath Consults: Nephro, Cardio Ppx: Heparin covers for DVT, Pepcid for GI CODE: Unknown, so Full by default Seen, reviewed, and discussed with attending, Dr. Gisela Mello PGY-1 - Date & Time Date: 01/08/18 Time: 07:00 <Lei Higgins - Last Filed: 01/08/18 18:31> CCU Objective - Vital Signs / Intake & Output Vital Signs (Last 4 hours): Vital Signs Pulse Resp BP Pulse Ox 01/08/18 16:00 59 L 95 01/08/18 15:00 56 L 15 97 01/08/18 14:56 54 L 17 94/47 L 97 01/08/18 14:32 64 25 H 89/56 L 97 Intake and Output (Last 8hrs): Intake & Output 01/08/18 01/08/18 01/08/18 06:59 14:59 22:59 Intake Total 47.5 374.0 48 Output Total 125 130 Balance -77.5 374.0 -82 Intake: IV 100 Intake, IV Amount 47.5 74.0 48 Right Antecubital 47.5 74.0 48 Oral 200 Output: Urine 125 130 Urethral (Anne) 125 130 - Medications Active Medications: Active Medications Generic Name Dose Route Start Last Admin Trade Name Freq PRN Reason Stop Dose Admin Aspirin 81 mg 01/06/18 10:00 01/08/18 11:18 Aspirin Chewable PO 81 mg DAILY RIKI Administration Clopidogrel Bisulfate 75 mg 01/06/18 10:00 01/08/18 11:20 Plavix PO 75 mg DAILY RIKI Administration Dextrose 0 ml 01/06/18 03:37 Dextrose 50% Inj IV STAT PRN Hypoglycemia Protocol Protocol Dextrose 0 gm 01/06/18 03:37 Glutose 15 PO ONCE PRN Hypoglycemia Protocol Protocol Famotidine 20 mg 01/06/18 10:00 01/08/18 11:21 Pepcid PO 20 mg DAILY RIKI Administration Furosemide 40 mg 01/06/18 10:00 01/08/18 14:09 Lasix IVP Not Given DAILY RIKI Glucagon 0 mg 01/06/18 03:37 Glucagen Diagnostic Kit IM STAT PRN Hypoglycemia Protocol Protocol Dextrose 1,000 mls @ 0 mls/hr 01/06/18 03:37 Dextrose 5% In Water 1000 Ml IV .Q0M PRN Hypoglycemia Protocol Protocol Per Protocol Heparin Sodium/Sodium Chloride 25,000 units in 250 mls @ 5.674 mls/hr 01/06/18 08:17 01/08/18 11:21 Heparin 02065 Units/250ml 1/2 Normal Saline IV 30.13 units/kg/hr .Q24H PRN 19 mls/hr PROTOCOL Titration Protocol 9 UNITS/KG/HR Insulin Aspart 0 unit 01/07/18 12:00 01/08/18 18:12 Novolog SC Not Given Q6 [facility] Protocol Midodrine 10 mg 01/08/18 10:00 01/08/18 17:39 Proamatine PO 10 mg TID RIKI Administration Rosuvastatin Calcium 5 mg 01/06/18 22:00 01/07/18 21:52 Crestor PO 5 mg HS RIKI Administration - Patient Studies Lab Studies: Microbiology Studies 01/06/18 07:20 Gram Stain - Final Leg - Right Wound Culture - Preliminary Proteus Mirabilis Gram Negative Channing Gram Positive Cocci 01/05/18 20:48 Blood Culture - Preliminary Blood NO GROWTH AFTER 48 HOURS 01/05/18 20:18 Blood Culture - Preliminary Blood NO GROWTH AFTER 48 HOURS Lab Studies 01/08/18 01/08/18 01/08/18 Range/Units 17:40 11:28 06:16 WBC (4.8-10.8) K/uL RBC (4.40-5.90) Mil/uL Hgb (12.0-18.0) g/dL Hct (35.0-51.0) % MCV (80.0-94.0) fL MCH (27.0-31.0) pg MCHC (33.0-37.0) g/dL RDW (11.5-14.5) % Plt Count (130-400) K/uL MPV (7.2-11.7) fL Neut % (Auto) (50.0-75.0) % Lymph % (Auto) (20.0-40.0) % [place] % (Auto) (0.0-10.0) % Eos % (Auto) (0.0-4.0) % Baso % (Auto) (0.0-2.0) % Neut # (Auto) (1.8-7.0) K/uL Lymph # (Auto) (1.0-4.3) K/uL [place] # (Auto) (0.0-0.8) K/uL Eos # (Auto) (0.0-0.7) K/uL Baso # (Auto) (0.0-0.2) K/uL Neutrophils % (Manual) (50-75) % Lymphocytes % (Manual) (20-40) % Monocytes % (Manual) (0-10) % Platelet Estimate (NORMAL) Hypochromasia (manual) Poikilocytosis (manual Anisocytosis (manual) Target Cells [place] Cells APTT 32 D (21-34) SECONDS Sodium (132-148) mmol/L Potassium (3.6-5.2) mmol/L Chloride (98-107) mmol/L Carbon Dioxide (22-30) mmol/L Anion Gap (10-20) BUN (9-20) mg/dL Creatinine (0.8-1.5) mg/dL Est GFR ( Amer) Est GFR (Non-Af Amer) POC Glucose (mg/dL) 168 H 109 (65-110) mg/dL Random Glucose (75-110) mg/dL Calcium (8.6-10.4) mg/dl Magnesium (1.6-2.3) mg/dL Iron (49-181) ug/dL TIBC (250-450) ug/dL % Saturation (20-55) Ferritin ng/mL Total Bilirubin (0.2-1.3) mg/dL AST (17-59) U/L ALT (21-72) U/L Alkaline Phosphatase (38-126) U/L Total Protein (6.3-8.3) g/dL Total Protein (PEP) (6.1-8.1) g/dL Albumin (3.5-5.0) g/dL Globulin (2.2-3.9) gm/dL Albumin/Globulin Ratio (1.0-2.1) Ur Random Creatinine mg/dL Ur Random Sodium mmol/L 01/08/18 01/08/18 01/08/18 Range/Units 06:16 06:16 06:16 WBC 7.0 (4.8-10.8) K/uL RBC 3.45 L (4.40-5.90) Mil/uL Hgb 9.9 L (12.0-18.0) g/dL Hct 30.8 L (35.0-51.0) % MCV 89.4 (80.0-94.0) fL MCH 28.7 (27.0-31.0) pg MCHC 32.1 L (33.0-37.0) g/dL RDW 16.7 H (11.5-14.5) % Plt Count 330 (130-400) K/uL MPV 8.4 (7.2-11.7) fL Neut % (Auto) 79.9 H (50.0-75.0) % Lymph % (Auto) 9.0 L (20.0-40.0) % [place] % (Auto) 9.7 (0.0-10.0) % Eos % (Auto) 0.8 (0.0-4.0) % Baso % (Auto) 0.6 (0.0-2.0) % Neut # (Auto) 5.6 (1.8-7.0) K/uL Lymph # (Auto) 0.6 L (1.0-4.3) K/uL [place] # (Auto) 0.7 (0.0-0.8) K/uL Eos # (Auto) 0.1 (0.0-0.7) K/uL Baso # (Auto) 0.0 (0.0-0.2) K/uL Neutrophils % (Manual) 78 H (50-75) % Lymphocytes % (Manual) 13 L (20-40) % Monocytes % (Manual) 9 (0-10) % Platelet Estimate Normal (NORMAL) Hypochromasia (manual) Slight Poikilocytosis (manual Slight Anisocytosis (manual) Slight Target Cells Slight [place] Cells Slight APTT (21-34) SECONDS Sodium 137 (132-148) mmol/L Potassium 5.2 (3.6-5.2) mmol/L Chloride 102 (98-107) mmol/L Carbon Dioxide 22 (22-30) mmol/L Anion Gap 19 (10-20) BUN 71 H (9-20) mg/dL Creatinine 3.6 H (0.8-1.5) mg/dL Est GFR ( Amer) 21 Est GFR (Non-Af Amer) 17 POC Glucose (mg/dL) (65-110) mg/dL Random Glucose 98 (75-110) mg/dL Calcium 8.3 L (8.6-10.4) mg/dl Magnesium 2.0 (1.6-2.3) mg/dL Iron 34 L (49-181) ug/dL TIBC 292 (250-450) ug/dL % Saturation 12 L (20-55) Ferritin 1500.0 ng/mL Total Bilirubin 0.9 (0.2-1.3) mg/dL AST 282 H D (17-59) U/L ALT 511 H (21-72) U/L Alkaline Phosphatase 338 H (38-126) U/L Total Protein 6.6 (6.3-8.3) g/dL Total Protein (PEP) (6.1-8.1) g/dL Albumin 3.4 L (3.5-5.0) g/dL Globulin 3.3 (2.2-3.9) gm/dL Albumin/Globulin Ratio 1.0 (1.0-2.1) Ur Random Creatinine mg/dL Ur Random Sodium mmol/L 01/08/18 01/08/18 01/07/18 Range/Units 06:16 05:27 23:51 WBC (4.8-10.8) K/uL RBC (4.40-5.90) Mil/uL Hgb (12.0-18.0) g/dL Hct (35.0-51.0) % MCV (80.0-94.0) fL MCH (27.0-31.0) pg MCHC (33.0-37.0) g/dL RDW (11.5-14.5) % Plt Count (130-400) K/uL MPV (7.2-11.7) fL Neut % (Auto) (50.0-75.0) % Lymph % (Auto) (20.0-40.0) % [place] % (Auto) (0.0-10.0) % Eos % (Auto) (0.0-4.0) % Baso % (Auto) (0.0-2.0) % Neut # (Auto) (1.8-7.0) K/uL Lymph # (Auto) (1.0-4.3) K/uL [place] # (Auto) (0.0-0.8) K/uL Eos # (Auto) (0.0-0.7) K/uL Baso # (Auto) (0.0-0.2) K/uL Neutrophils % (Manual) (50-75) % Lymphocytes % (Manual) (20-40) % Monocytes % (Manual) (0-10) % Platelet Estimate (NORMAL) Hypochromasia (manual) Poikilocytosis (manual Anisocytosis (manual) Target Cells [place] Cells APTT (21-34) SECONDS Sodium (132-148) mmol/L Potassium (3.6-5.2) mmol/L Chloride (98-107) mmol/L Carbon Dioxide (22-30) mmol/L Anion Gap (10-20) BUN (9-20) mg/dL Creatinine (0.8-1.5) mg/dL Est GFR ( Amer) Est GFR (Non-Af Amer) POC Glucose (mg/dL) 102 118 H (65-110) mg/dL Random Glucose (75-110) mg/dL Calcium (8.6-10.4) mg/dl Magnesium (1.6-2.3) mg/dL Iron (49-181) ug/dL TIBC (250-450) ug/dL % Saturation (20-55) Ferritin ng/mL Total Bilirubin (0.2-1.3) mg/dL AST (17-59) U/L ALT (21-72) U/L Alkaline Phosphatase (38-126) U/L Total Protein (6.3-8.3) g/dL Total Protein (PEP) (6.1-8.1) g/dL Albumin (3.5-5.0) g/dL Globulin (2.2-3.9) gm/dL Albumin/Globulin Ratio (1.0-2.1) Ur Random Creatinine 29.1 mg/dL Ur Random Sodium 94 mmol/L 01/07/18 01/07/18 Range/Units 21:14 11:30 WBC (4.8-10.8) K/uL RBC (4.40-5.90) Mil/uL Hgb (12.0-18.0) g/dL Hct (35.0-51.0) % MCV (80.0-94.0) fL MCH (27.0-31.0) pg MCHC (33.0-37.0) g/dL RDW (11.5-14.5) % Plt Count (130-400) K/uL MPV (7.2-11.7) fL Neut % (Auto) (50.0-75.0) % Lymph % (Auto) (20.0-40.0) % [place] % (Auto) (0.0-10.0) % Eos % (Auto) (0.0-4.0) % Baso % (Auto) (0.0-2.0) % Neut # (Auto) (1.8-7.0) K/uL Lymph # (Auto) (1.0-4.3) K/uL [place] # (Auto) (0.0-0.8) K/uL Eos # (Auto) (0.0-0.7) K/uL Baso # (Auto) (0.0-0.2) K/uL Neutrophils % (Manual) (50-75) % Lymphocytes % (Manual) (20-40) % Monocytes % (Manual) (0-10) % Platelet Estimate (NORMAL) Hypochromasia (manual) Poikilocytosis (manual Anisocytosis (manual) Target Cells [place] Cells APTT 46 H (21-34) SECONDS Sodium (132-148) mmol/L Potassium (3.6-5.2) mmol/L Chloride (98-107) mmol/L Carbon Dioxide (22-30) mmol/L Anion Gap (10-20) BUN (9-20) mg/dL Creatinine (0.8-1.5) mg/dL Est GFR ( Amer) Est GFR (Non-Af Amer) POC Glucose (mg/dL) (65-110) mg/dL Random Glucose (75-110) mg/dL Calcium (8.6-10.4) mg/dl Magnesium (1.6-2.3) mg/dL Iron (49-181) ug/dL TIBC (250-450) ug/dL % Saturation (20-55) Ferritin ng/mL Total Bilirubin (0.2-1.3) mg/dL AST (17-59) U/L ALT (21-72) U/L Alkaline Phosphatase (38-126) U/L Total Protein (6.3-8.3) g/dL Total Protein (PEP) 5.9 L (6.1-8.1) g/dL Albumin (3.5-5.0) g/dL Globulin (2.2-3.9) gm/dL Albumin/Globulin Ratio (1.0-2.1) Ur Random Creatinine mg/dL Ur Random Sodium mmol/L Laboratory Results - last 24 hr 01/07/18 01/07/18 01/07/18 11:30 21:14 23:51 WBC RBC Hgb Hct MCV MCH MCHC RDW Plt Count MPV Neut % (Auto) Lymph % (Auto) [place] % (Auto) Eos % (Auto) Baso % (Auto) Neut # (Auto) Lymph # (Auto) [place] # (Auto) Eos # (Auto) Baso # (Auto) Neutrophils % (Manual) Lymphocytes % (Manual) Monocytes % (Manual) Platelet Estimate Hypochromasia (manual) Poikilocytosis (manual Anisocytosis (manual) Target Cells [place] Cells APTT 46 H Sodium Potassium Chloride Carbon Dioxide Anion Gap BUN Creatinine Est GFR ( Amer) Est GFR (Non-Af Amer) POC Glucose (mg/dL) 118 H Random Glucose Calcium Magnesium Iron TIBC % Saturation Ferritin Total Bilirubin AST ALT Alkaline Phosphatase Total Protein Total Protein (PEP) 5.9 L Albumin Globulin Albumin/Globulin Ratio Ur Random Creatinine Ur Random Sodium 01/08/18 01/08/18 01/08/18 05:27 06:16 06:16 WBC RBC Hgb Hct MCV MCH MCHC RDW Plt Count MPV Neut % (Auto) Lymph % (Auto) [place] % (Auto) Eos % (Auto) Baso % (Auto) Neut # (Auto) Lymph # (Auto) [place] # (Auto) Eos # (Auto) Baso # (Auto) Neutrophils % (Manual) Lymphocytes % (Manual) Monocytes % (Manual) Platelet Estimate Hypochromasia (manual) Poikilocytosis (manual Anisocytosis (manual) Target Cells [place] Cells APTT Sodium 137 Potassium 5.2 Chloride 102 Carbon Dioxide 22 Anion Gap 19 BUN 71 H Creatinine 3.6 H Est GFR ( Amer) 21 Est GFR (Non-Af Amer) 17 POC Glucose (mg/dL) 102 Random Glucose 98 Calcium 8.3 L Magnesium 2.0 Iron TIBC % Saturation Ferritin 1500.0 Total Bilirubin 0.9 AST 282 H D ALT 511 H Alkaline Phosphatase 338 H Total Protein 6.6 Total Protein (PEP) Albumin 3.4 L Globulin 3.3 Albumin/Globulin Ratio 1.0 Ur Random Creatinine 29.1 Ur Random Sodium 94 01/08/18 01/08/18 01/08/18 06:16 06:16 06:16 WBC 7.0 RBC 3.45 L Hgb 9.9 L Hct 30.8 L MCV 89.4 MCH 28.7 MCHC 32.1 L RDW 16.7 H Plt Count 330 MPV 8.4 Neut % (Auto) 79.9 H Lymph % (Auto) 9.0 L [place] % (Auto) 9.7 Eos % (Auto) 0.8 Baso % (Auto) 0.6 Neut # (Auto) 5.6 Lymph # (Auto) 0.6 L [place] # (Auto) 0.7 Eos # (Auto) 0.1 Baso # (Auto) 0.0 Neutrophils % (Manual) 78 H Lymphocytes % (Manual) 13 L Monocytes % (Manual) 9 Platelet Estimate Normal Hypochromasia (manual) Slight Poikilocytosis (manual Slight Anisocytosis (manual) Slight Target Cells Slight [place] Cells Slight APTT 32 D Sodium Potassium Chloride Carbon Dioxide Anion Gap BUN Creatinine Est GFR ( Amer) Est GFR (Non-Af Amer) POC Glucose (mg/dL) Random Glucose Calcium Magnesium Iron 34 L TIBC 292 % Saturation 12 L Ferritin Total Bilirubin AST ALT Alkaline Phosphatase Total Protein Total Protein (PEP) Albumin Globulin Albumin/Globulin Ratio Ur Random Creatinine Ur Random Sodium 01/08/18 01/08/18 11:28 17:40 WBC RBC Hgb Hct MCV MCH MCHC RDW Plt Count MPV Neut % (Auto) Lymph % (Auto) [place] % (Auto) Eos % (Auto) Baso % (Auto) Neut # (Auto) Lymph # (Auto) [place] # (Auto) Eos # (Auto) Baso # (Auto) Neutrophils % (Manual) Lymphocytes % (Manual) Monocytes % (Manual) Platelet Estimate Hypochromasia (manual) Poikilocytosis (manual Anisocytosis (manual) Target Cells [place] Cells APTT Sodium Potassium Chloride Carbon Dioxide Anion Gap BUN Creatinine Est GFR ( Amer) Est GFR (Non-Af Amer) POC Glucose (mg/dL) 109 168 H Random Glucose Calcium Magnesium Iron TIBC % Saturation Ferritin Total Bilirubin AST ALT Alkaline Phosphatase Total Protein Total Protein (PEP) Albumin Globulin Albumin/Globulin Ratio Ur Random Creatinine Ur Random Sodium Critical Care Progress Note - Nutrition Nutrition: Nutrition Category Date Time Status Renal Diet [DIET] Diets 01/06/18 Breakfast Active Attending/Attestation - Attestation I have personally seen and examined this patient.: Yes I have fully participated in the care of the patient.: Yes I have reviewed all pertinent clinical information: Yes Notes (Text): 01/08/18 18:30 Patient recently underwent the CABG. Post CABG patient developed acute anasarca, known to have a liver cirrhosis, acute renal failure. Fluid overload. Currently on diuretics. Tolerating the dialysis. Will continue to monitor. Negative fluid balance advised. Cardiac follow-up
[2018-01-08] MEDS: Heparin25000 units/250ml 1/2NS 25,000 UNITS/250 ML BAG IV PRN ×2 (19:00→21:55)
--- NOTE | 2018-01-08 22:17 | CARD ---
APPROVED REPORT Date of service: 01/06/2018 EKG Measurement Heart [id number] <Conclusion> Sinus rhythm with 2nd degree AV block (Mobitz I) with premature supraventricular complexes Inferior infarct, possibly acute T wave abnormality, consider lateral ischemia ACUTE MO / STEMI Consider right ventricular involvement in acute inferior infarct Abnormal ECG
--- NOTE | 2018-01-08 22:21 | CARD ---
APPROVED REPORT Date of service: 01/06/2018 EKG Measurement Heart [id number] <Conclusion> Sinus rhythm with Mobitz type 1 Inferior-posterior infarct, age undetermined ST & T wave abnormality, consider lateral ischemia Abnormal ECG
--- NOTE | 2018-01-08 22:45 | CARD ---
APPROVED REPORT Date of service: 01/06/2018 EKG Measurement Heart [id number] <Conclusion> SInus rhythm with nonspecific ST T changes First degree AV block Infero-posterior wall infarct, possibly recent Low voltage QRS Septal infarct, age undetermined Abnormal ECG
[2018-01-09 06:44] LABS: BASO % 0.4 % (0.0-2.0); EOS % 0.7 % (0.0-4.0); LYMPH # 0.7 K/uL (1.0-4.3); LYMPH % 11.1 % (20.0-40.0); MEAN CELL VOLUME 87.6 fL (80.0-94.0); MEAN CORPUSCULAR HEMOGLOBIN 28.3 pg (27.0-31.0); MEAN CORPUSCULAR HGB CONC 32.3 g/dL (33.0-37.0); MEAN PLATELET VOLUME 8.2 fL (7.2-11.7); MONO # 0.7 K/uL (0.0-0.8); MONO % 10.6 % (0.0-10.0); NEUT # 4.9 K/uL (1.8-7.0); NEUT % 77.2 % (50.0-75.0); NRBC % 0.1 % (0.0-2.0); RBC 3.55 Mil/uL (4.40-5.90); RED CELL DISTRIBUTION WIDTH 16.9 % (11.5-14.5); WHITE BLOOD COUNT 6.4 K/uL (4.8-10.8)
[2018-01-09 06:59] LABS: ALBUMIN 3.3 g/dL (3.5-5.0); CALCIUM 8.4 mg/dl (8.6-10.4)
--- NOTE | 2018-01-09 09:05 | CP.PCM.PN ---
Subjective - Date & Time of Evaluation Date of Evaluation: 01/09/18 Time of Evaluation: 10:15 - Subjective Subjective: Cardiology Progress Note Alison Erickson, PGY-[address] Dumont Patient seen and examined at bedside. No acute events overnight, offers no complaints at this time except for mild SOB. Received HD yesterday. Plan for cath tomorrow. Objective - Vital Signs/Intake and Output Vital Signs (last 24 hours): Temp Pulse Resp BP Pulse Ox 97.8 F 74 21 102/50 L 89 L 01/09/18 04:00 01/09/18 07:00 01/09/18 07:50 01/09/18 06:57 01/09/18 07:00 Intake and Output: 01/09/18 01/09/18 06:59 18:59 Intake Total 344 12 Output Total 50 Balance 344 -38 - Medications Medications: Current Medications Aspirin (Aspirin Chewable) 81 mg PO DAILY [facility] Last Admin: 01/08/18 11:18 Dose: 81 mg Clopidogrel Bisulfate (Plavix) 75 mg PO DAILY [facility] Last Admin: 01/08/18 11:20 Dose: 75 mg Dextrose (Dextrose 50% Inj) 0 ml IV STAT PRN; Protocol PRN Reason: Hypoglycemia Protocol Dextrose (Glutose 15) 0 gm PO ONCE PRN; Protocol PRN Reason: Hypoglycemia Protocol Famotidine (Pepcid) 20 mg PO DAILY [facility] Last Admin: 01/08/18 11:21 Dose: 20 mg Furosemide (Lasix) 40 mg IVP DAILY [facility] Last Admin: 01/08/18 14:09 Dose: Not Given Glucagon (Glucagen Diagnostic Kit) 0 mg IM STAT PRN; Protocol PRN Reason: Hypoglycemia Protocol Heparin Sodium/Sodium Chloride (Heparin 02831 Units/250ml 1/2 Normal Saline) 25,000 units in 250 mls @ 5.674 mls/hr IV .Q24H PRN; Protocol PRN Reason: PROTOCOL Last Admin: 01/08/18 21:55 Dose: 30.13 units/kg/hr, 19 mls/hr Insulin Aspart (Novolog) 0 unit SC ACHS [facility]; Protocol Midodrine (Proamatine) 10 mg PO TID [facility] Last Admin: 01/08/18 17:39 Dose: 10 mg Rosuvastatin Calcium (Crestor) 5 mg PO HS [facility] Last Admin: 01/08/18 21:32 Dose: 5 mg - Labs Labs: 01/09/18 06:41 01/09/18 06:41 PT 16.0 SECONDS (9.7-12.2) H 01/05/18 20:09 INR 1.5 01/05/18 20:09 APTT 60 SECONDS (21-34) H D 01/09/18 06:41 - Constitutional Appears: No Acute Distress - Head Exam Head Exam: ATRAUMATIC, NORMOCEPHALIC - Eye Exam Eye Exam: EOMI Pupil Exam: PERRL - Respiratory Exam Respiratory Exam: Clear to Ausculation Bilateral, Respiratory Distress - Cardiovascular Exam Cardiovascular Exam: REGULAR RHYTHM, +S1, +S2 - GI/Abdominal Exam GI & Abdominal Exam: Normal Bowel Sounds. absent: Guarding, Rigid - Extremities Exam Extremities Exam: absent: Calf Tenderness Additional comments: B/L swelling appreciated, stable - Neurological Exam Neurological Exam: Alert, Oriented x3 - Skin Skin Exam: Normal Color, Warm Assessment and Plan - Assessment and Plan (Free Text) Assessment: This is a 67 year old male with PMH of CAD s/p CABG 11/2017 presenting to hospital for management of acute on chronic systolic heart failure. Plan: Acute on chronic systolic heart failure -BNP improving -plan for cath tomorrow -ok to restart low dose beta rosa -CXR shows findings consistent with CHF and pleural effusions -continue lasix -continue midodrine -blood pressure improved today CKD -s/p HD yesterday Case discussed with Dr. Dumont, further recommendations per Dr. Dumont
--- NOTE | 2018-01-09 09:13 | RAD ---
Date of service: 01/09/2018 HISTORY: f/u pleural effusion/fluid overload COMPARISON: Portable chest 01/08/2018. FINDINGS: LUNGS: Patient is is adequately positioned AP as opposed to prior imaging showing rotation to the right. Taking changes in positioning into account, there is likely no significant interval change in bilateral pleural effusions which are mild to moderate at the right and mild at the left. Underlying airspace disease is not excluded bilaterally but is not proven either. Cardiomegaly is stable. No definite pulmonary vascular congestion. No pneumothorax. PLEURA: As above. CARDIOVASCULAR: As above. OSSEOUS STRUCTURES: Sternotomy wires reiterated. VISUALIZED UPPER ABDOMEN: Normal. OTHER FINDINGS: None. IMPRESSION: Stable chest radiography including bilateral pleural effusions and underlying airspace disease potentially. Cardiomegaly unchanged. No definite pulmonary vascular congestion.
[2018-01-09] MEDS: (Novolog) Insulin Aspart, Recombinant 100 u/ml 10 ml vial SC SCH ×4 (09:31→22:00)
--- NOTE | 2018-01-09 09:32 | CP.PCM.PN ---
Subjective - Date & Time of Evaluation Date of Evaluation: 01/09/18 Time of Evaluation: 09:15 - Subjective Subjective: Patient is awake and alert, does not appear in any distress. Following commands Blood pressure remains low at this time, was started on midodrine yesterday. Had second HD session. The urine out put was recorded as 130 yesterday Wound culture of the right leg from where the vein was taken came back positive cultures, will start abx. Objective - Vital Signs/Intake and Output Vital Signs (last 24 hours): Temp Pulse Resp BP Pulse Ox 97.8 F 74 21 107/62 89 L 01/09/18 04:00 01/09/18 07:00 01/09/18 07:50 01/09/18 09:22 01/09/18 07:00 Intake and Output: 01/09/18 01/09/18 06:59 18:59 Intake Total 344 12 Output Total 50 Balance 344 -38 - Medications Medications: Current Medications Aspirin (Aspirin Chewable) 81 mg PO DAILY [facility] Last Admin: 01/09/18 09:22 Dose: 81 mg Clopidogrel Bisulfate (Plavix) 75 mg PO DAILY [facility] Last Admin: 01/09/18 09:23 Dose: 75 mg Dextrose (Dextrose 50% Inj) 0 ml IV STAT PRN; Protocol PRN Reason: Hypoglycemia Protocol Dextrose (Glutose 15) 0 gm PO ONCE PRN; Protocol PRN Reason: Hypoglycemia Protocol Famotidine (Pepcid) 20 mg PO DAILY [facility] Last Admin: 01/09/18 09:23 Dose: 20 mg Furosemide (Lasix) 40 mg IVP DAILY [facility] Last Admin: 01/09/18 09:22 Dose: 40 mg Glucagon (Glucagen Diagnostic Kit) 0 mg IM STAT PRN; Protocol PRN Reason: Hypoglycemia Protocol Ciprofloxacin (Cipro 400mg/200ml Dsw) 400 mg in 200 mls @ 133 mls/hr IVPB Q12H [facility]; Protocol Insulin Aspart (Novolog) 0 unit SC ACHS [facility]; Protocol Midodrine (Proamatine) 10 mg PO TID [facility] Last Admin: 01/09/18 09:23 Dose: 10 mg Rosuvastatin Calcium (Crestor) 5 mg PO HS [facility] Last Admin: 01/08/18 21:32 Dose: 5 mg - Labs Labs: 01/09/18 06:41 01/09/18 06:41 PT 16.0 SECONDS (9.7-12.2) H 01/05/18 20:09 INR 1.5 01/05/18 20:09 APTT 60 SECONDS (21-34) H D 01/09/18 06:41 - Constitutional Appears: No Acute Distress, Chronically Ill - Head Exam Head Exam: NORMAL INSPECTION - Eye Exam Eye Exam: EOMI, Normal appearance - ENT Exam ENT Exam: Mucous Membranes Moist - Respiratory Exam Respiratory Exam: Clear to Ausculation Bilateral, NORMAL BREATHING PATTERN - Cardiovascular Exam Cardiovascular Exam: REGULAR RHYTHM - GI/Abdominal Exam GI & Abdominal Exam: Soft, Normal Bowel Sounds. absent: Guarding, Rigid, Tenderness - Extremities Exam Extremities Exam: Pedal Edema Additional comments: right thigh area with the wound from the CABG - Neurological Exam Neurological Exam: Alert, Awake Neuro motor strength exam: Left Upper Extremity: 4, Right Upper Extremity: 4 - Psychiatric Exam Psychiatric exam: Normal Affect, Normal Mood Assessment and Plan - Assessment and Plan (Free Text) Assessment: 1. Respiratory distress ,Acute CHF 01/09 Tolerated second HD session ok. Now on midodrine at this point. The systolic BP is still low. 01/08: Patient reports breathing is signifigantluy better than on admission. He now has had two sessions of HD The BB temporarily held for time being due to bradycardia,His BP was low also,not on ARB/ACEI EKG shows first degree heart block and bradycardia with no acute ST T wave changes Echocardiography shows EF 34% Impaired systolic function 2. Acute on chronic renal failure, cardiorenal syndrome Second HD session yesterday Fluid restriction,dialysis as per DR Powers History of noncompliance with his diabetes/chronic renal disease ?.No primary care avoid nephrotoxic drugs 3. Elevated troponins. 01/08: Remains on ASA, plavix. He recently went to [facility] for CABG and then was discharged. s/p CABG,follow troponin 4. Diabetes mellitus 01/08 Currently on novolog SSI 5. Elevated lactic acid and right leg s/p vein harvest for CABG. R/O Infection Had one dose Vancomycin at ER.we will do Vanco level in the morning Empiric coverage Zosyn renal dose follow blood culture,serial lactic acid follow procalcitonin
--- NOTE | 2018-01-09 09:36 | CP.PCM.PN ---
<Melonie Han - Last Filed: 01/09/18 13:27> Subjective - Date & Time of Evaluation Date of Evaluation: 01/09/18 Time of Evaluation: 08:35 - Subjective Subjective: Melonie Han DO, PGY-2: Nephrology Progress Note for Dr. Powers Patient was seen and examined at bedside. He is resting comfortably off the high flow oxygen. He denies any chest pain, nausea, vomiting, or worsening lower extremity edema. Patient reports feeling much better overall. Objective - Vital Signs/Intake and Output Vital Signs (last 24 hours): Temp Pulse Resp BP Pulse Ox 97.8 F 74 21 107/62 89 L 01/09/18 04:00 01/09/18 07:00 01/09/18 07:50 01/09/18 09:22 01/09/18 07:00 Intake and Output: 01/09/18 01/09/18 06:59 18:59 Intake Total 344 12 Output Total 50 Balance 344 -38 - Medications Medications: Current Medications Aspirin (Aspirin Chewable) 81 mg PO DAILY [facility] Last Admin: 01/09/18 09:22 Dose: 81 mg Clopidogrel Bisulfate (Plavix) 75 mg PO DAILY [facility] Last Admin: 01/09/18 09:23 Dose: 75 mg Dextrose (Dextrose 50% Inj) 0 ml IV STAT PRN; Protocol PRN Reason: Hypoglycemia Protocol Dextrose (Glutose 15) 0 gm PO ONCE PRN; Protocol PRN Reason: Hypoglycemia Protocol Famotidine (Pepcid) 20 mg PO DAILY [facility] Last Admin: 01/09/18 09:23 Dose: 20 mg Furosemide (Lasix) 40 mg IVP DAILY [facility] Last Admin: 01/09/18 09:22 Dose: 40 mg Glucagon (Glucagen Diagnostic Kit) 0 mg IM STAT PRN; Protocol PRN Reason: Hypoglycemia Protocol Ciprofloxacin (Cipro 400mg/200ml Dsw) 400 mg in 200 mls @ 133 mls/hr IVPB Q12H [facility]; Protocol Insulin Aspart (Novolog) 0 unit SC ACHS [facility]; Protocol Last Admin: 01/09/18 09:31 Dose: Not Given Midodrine (Proamatine) 10 mg PO TID [facility] Last Admin: 01/09/18 09:23 Dose: 10 mg Rosuvastatin Calcium (Crestor) 5 mg PO HS [facility] Last Admin: 01/08/18 21:32 Dose: 5 mg - Labs Labs: 01/09/18 06:41 01/09/18 06:41 PT 16.0 SECONDS (9.7-12.2) H 01/05/18 20:09 INR 1.5 01/05/18 20:09 APTT 60 SECONDS (21-34) H D 01/09/18 06:41 - Constitutional Appears: Well, Non-toxic - Head Exam Head Exam: ATRAUMATIC, NORMOCEPHALIC - Eye Exam Eye Exam: EOMI, Normal appearance - ENT Exam ENT Exam: Mucous Membranes Moist - Neck Exam Neck Exam: Normal Inspection - Respiratory Exam Respiratory Exam: Clear to Ausculation Bilateral, NORMAL BREATHING PATTERN. absent: Accessory Muscle Use - Cardiovascular Exam Cardiovascular Exam: RRR, +S1, +S2 - GI/Abdominal Exam GI & Abdominal Exam: Soft. absent: Guarding, Rigid - Extremities Exam Extremities Exam: absent: Calf Tenderness Additional comments: 2/4 LE pitting edema - Neurological Exam Neurological Exam: Alert, Awake, Oriented x3 - Psychiatric Exam Psychiatric exam: Normal Affect, Normal Mood - Skin Skin Exam: Dry, Intact, Normal Color, Warm Assessment and Plan - Assessment and Plan (Free Text) Assessment: 67 year old male with history notable for inferior wall PR s/p CABG that required a week or so of dialysis post-operatively who presented to [facility] for worsening shortness of breath, increased edema, and decreased urine output requiring HD. Continue with HD. Plan to remove 2L of fluids today. Once patient is stabilized may consider performing kidney biospy given patient has nephrotic range proteinuria. Continue with current medical regimient. We will continue to treat aggressively with the PMD and the other consultants. We will check CPK, Uric Acid, and Phosphorus. We discussed with the ICU team the need to monitor strict I/O. Case was reviewed and discussed at length with attending physician, Dr. Powers <Maynor Powers - Last Filed: 01/10/18 06:38> Objective - Vital Signs/Intake and Output Vital Signs (last 24 hours): Temp Pulse Resp BP Pulse Ox 97.8 F 74 19 113/72 90 L 01/10/18 04:00 01/10/18 04:06 01/10/18 04:06 01/10/18 04:06 01/10/18 04:06 Intake and Output: 01/09/18 01/10/18 18:59 06:59 Intake Total 1074 320 Output Total 510 355 Balance 564 -35 - Medications Medications: Current Medications Aspirin (Aspirin Chewable) 81 mg PO DAILY [facility] Last Admin: 01/09/18 09:22 Dose: 81 mg Clopidogrel Bisulfate (Plavix) 75 mg PO DAILY [facility] Last Admin: 01/09/18 09:23 Dose: 75 mg Dextrose (Dextrose 50% Inj) 0 ml IV STAT PRN; Protocol PRN Reason: Hypoglycemia Protocol Dextrose (Glutose 15) 0 gm PO ONCE PRN; Protocol PRN Reason: Hypoglycemia Protocol Famotidine (Pepcid) 20 mg PO DAILY [facility] Last Admin: 01/09/18 09:23 Dose: 20 mg Furosemide (Lasix) 40 mg IVP DAILY [facility] Last Admin: 01/09/18 09:22 Dose: 40 mg Glucagon (Glucagen Diagnostic Kit) 0 mg IM STAT PRN; Protocol PRN Reason: Hypoglycemia Protocol Ciprofloxacin (Cipro 400mg/200ml Dsw) 400 mg in 200 mls @ 133 mls/hr IVPB Q12H [facility]; Protocol Last Admin: 01/09/18 22:14 Dose: 133 mls/hr Heparin Sodium/Sodium Chloride (Heparin 06250 Units/250ml 1/2 Normal Saline) 25,000 units in 250 mls @ 6.941 mls/hr IV .Q24H PRN; Protocol PRN Reason: PROTOCOL Last Admin: 01/09/18 22:13 Dose: 15.56 units/kg/hr, 12 mls/hr Insulin Aspart (Novolog) 0 unit SC ACHS [facility]; Protocol Last Admin: 01/09/18 22:00 Dose: Not Given Midodrine (Proamatine) 10 mg PO TID [facility] Last Admin: 01/09/18 17:24 Dose: 10 mg Rosuvastatin Calcium (Crestor) 5 mg PO HS [facility] Last Admin: 01/09/18 21:27 Dose: 5 mg - Labs Labs: 01/10/18 06:15 01/09/18 06:41 PT 16.0 SECONDS (9.7-12.2) H 01/05/18 20:09 INR 1.5 01/05/18 20:09 APTT 60 SECONDS (21-34) H D 01/09/18 06:41 Assessment and Plan (1) Acute renal failure Status: Acute (2) Heart failure, systolic, with acute decompensation Status: Acute (3) CKD (chronic kidney disease) Status: Chronic (4) NSTEMI (non-ST elevated myocardial infarction) Status: Acute Attending/Attestation - Attestation I have personally seen and examined this patient.: Yes I have fully participated in the care of the patient.: Yes I have reviewed all pertinent clinical information, including history, physical exam and plan: Yes Notes (Text): Patient seen and examined; I agree with the resident's note as above with the following additions/edits: 67 yo M w/ htn, dm, CAD s/p CABG, CHF w/ systolic dysfunction, CKD, admitted with NSTEMI, acute decompensated CHF and acute renal failure requiring HD; Still oliguric renal failure, thought to be from combination of cardiorenal syndrome and ATN (hypotensive/bradycardic at one point); however, now showing nephrotic range proteinuria which is very concerning as it may explain the severe edema and large pleural effusions more so than CHF alone; Discussed with card mounter, feels EF has not worsened since previous admission; also, patient's CAD is not typical as he has very diffuse disease; vasculitis is a possibility although serologic workup unremarkable to date; Acute hypoxemia resp failure, FIO2 requirement much improved; will continue to remove fluid on HD; -UF only session today with 2L goal (tolerated well); full HD tomorrow; -will discuss holding plavix with cardio (needs renal biopsy as well as tunneled HD cath); -avoid nephrotoxic agents; -leg infection noted; should dose antibiotics for HD;
[2018-01-09] MEDS: Ciprofloxacin 400mg/200ml D5W 400 MG/200 ML BAG IVPB SCH ×2 (11:16→22:14)
[2018-01-09 14:57] LABS: SQUAMOUS EPITHIAL < 1 /hpf (0-5); URINE BACTERIA OCC (<OCC); URINE BILIRUBIN NEGATIVE (NEGATIVE); URINE BLOOD 1+ (NEGATIVE); URINE CLARITY Clear (Clear); URINE COLOR Yellow (YELLOW); URINE GLUCOSE (UA) NORMAL (Normal); URINE LEUKOCYTE ESTERASE NEG Leu/uL (Negative); URINE PROTEIN NEGATIVE (NEGATIVE); URINE UROBILINOGEN NORMAL mg/dL (0.2-1.0)
--- NOTE | 2018-01-09 15:20 | CP.CCUPN ---
<Pao Mello L - Last Filed: 01/09/18 15:48> CCU Subjective - Physician Review Subjective (Free Text): Resident Critical Care Progress Note Patient examined at bedside. Offers no complaints at this time. Denies fevers, chills, headaches, dizziness, shortness of breath, chest pain, abdominal pain. Critical Care Time Spent (in minutes): 35 CCU Objective - Vital Signs / Intake & Output Vital Signs (Last 4 hours): Vital Signs Temp Pulse Resp BP Pulse Ox 01/09/18 14:00 72 93 L 01/09/18 13:00 75 18 95 01/09/18 12:56 77 17 114/66 96 01/09/18 12:01 22 01/09/18 12:00 97.3 F L 77 24 95 Intake and Output (Last 8hrs): Intake & Output 01/09/18 01/09/18 01/09/18 06:59 14:59 22:59 Intake Total 96 656 Output Total 280 Balance 96 376 Intake: Intake, IV Amount 96 296 RAC 2 Port 200 Right Antecubital 96 96 Oral 360 Output: Urine 280 Urine, Voided 280 - Physical Exam Head: Positive for: Atraumatic, Normocephalic Pupils: Negative for: Non-Reactive, Pinpoint Extroacular Muscles: Positive for: EOMI Conjunctiva: Positive for: Normal Mouth: Positive for: Moist Mucous Membranes. Negative for: Dry, Drooling Nose (External): Positive for: Atraumatic. Negative for: Abrasion, Contusion, Laceration Nose (Internal): Positive for: No Active Bleeding. Negative for: Epistaxis Neck: Positive for: Normal Range of Motion, Trachea Midline Respiratory/Chest: Positive for: Good Air Exchange. Negative for: Clear to Auscultation, Respiratory Distress, Accessory Muscle Use, Wheezes, Rhonchi Cardiovascular: Positive for: Regular Rate and Rhythm, Normal S1, S2. Negative for: Murmurs Abdomen: Positive for: Normal Bowel Sounds. Negative for: Tenderness, Distention Upper Extremity: Positive for: Normal ROM. Negative for: Normal Inspection, Tenderness, Erythema Lower Extremity: Negative for: CALF TENDERNESS Neurological: Positive for: GCS=15, Speech Normal Skin: Positive for: Dry, Normal Color. Negative for: Pale Psychiatric: Positive for: Alert, Oriented x 3, Normal Affect, Normal Mood - Medications Active Medications: Active Medications Generic Name Dose Route Start Last Admin Trade Name Freq PRN Reason Stop Dose Admin Aspirin 81 mg 01/06/18 10:00 01/09/18 09:22 Aspirin Chewable PO 81 mg DAILY RIKI Administration Clopidogrel Bisulfate 75 mg 01/06/18 10:00 01/09/18 09:23 Plavix PO 75 mg DAILY RIKI Administration Dextrose 0 ml 01/06/18 03:37 Dextrose 50% Inj IV STAT PRN Hypoglycemia Protocol Protocol Dextrose 0 gm 01/06/18 03:37 Glutose 15 PO ONCE PRN Hypoglycemia Protocol Protocol Famotidine 20 mg 01/06/18 10:00 01/09/18 09:23 Pepcid PO 20 mg DAILY RIKI Administration Furosemide 40 mg 01/06/18 10:00 01/09/18 09:22 Lasix IVP 40 mg DAILY RIKI Administration Glucagon 0 mg 01/06/18 03:37 Glucagen Diagnostic Kit IM STAT PRN Hypoglycemia Protocol Protocol Ciprofloxacin 400 mg in 200 mls @ 133 mls/hr 01/09/18 11:00 01/09/18 11:16 Cipro 400mg/200ml Dsw IVPB 133 mls/hr Q12H RIKI Administration Protocol Insulin Aspart 0 unit 01/08/18 21:30 01/09/18 12:07 Novolog SC 1 units ACHS RIKI Administration Protocol Midodrine 10 mg 01/08/18 10:00 01/09/18 13:14 Proamatine PO 10 mg TID RIKI Administration Rosuvastatin Calcium 5 mg 01/06/18 22:00 01/08/18 21:32 Crestor PO 5 mg HS RIKI Administration - Patient Studies Lab Studies: Microbiology Studies 01/06/18 07:20 Gram Stain - Final Leg - Right Wound Culture - Preliminary Proteus Mirabilis Klebsiella Pneumoniae Ssp Pneu Enterococcus Faecalis 01/05/18 20:48 Blood Culture - Preliminary Blood NO GROWTH AFTER 3 DAYS 01/05/18 20:18 Blood Culture - Preliminary Blood NO GROWTH AFTER 3 DAYS Lab Studies 01/09/18 01/09/18 01/09/18 Range/Units 14:46 11:56 07:14 WBC (4.8-10.8) K/uL RBC (4.40-5.90) Mil/uL Hgb (12.0-18.0) g/dL Hct (35.0-51.0) % MCV (80.0-94.0) fL MCH (27.0-31.0) pg MCHC (33.0-37.0) g/dL RDW (11.5-14.5) % Plt Count (130-400) K/uL MPV (7.2-11.7) fL Neut % (Auto) (50.0-75.0) % Lymph % (Auto) (20.0-40.0) % [place] % (Auto) (0.0-10.0) % Eos % (Auto) (0.0-4.0) % Baso % (Auto) (0.0-2.0) % Neut # (Auto) (1.8-7.0) K/uL Lymph # (Auto) (1.0-4.3) K/uL [place] # (Auto) (0.0-0.8) K/uL Eos # (Auto) (0.0-0.7) K/uL Baso # (Auto) (0.0-0.2) K/uL APTT (21-34) SECONDS Sodium (132-148) mmol/L Potassium (3.6-5.2) mmol/L Chloride (98-107) mmol/L Carbon Dioxide (22-30) mmol/L Anion Gap (10-20) BUN (9-20) mg/dL Creatinine (0.8-1.5) mg/dL Est GFR ( Amer) Est GFR (Non-Af Amer) POC Glucose (mg/dL) 165 H 87 (65-110) mg/dL Random Glucose (75-110) mg/dL Calcium (8.6-10.4) mg/dl Magnesium (1.6-2.3) mg/dL Total Bilirubin (0.2-1.3) mg/dL AST (17-59) U/L ALT (21-72) U/L Alkaline Phosphatase (38-126) U/L NT-Pro-B Natriuret Pep (0-900) pg/mL Total Protein (6.3-8.3) g/dL Albumin (3.5-5.0) g/dL Globulin (2.2-3.9) gm/dL Albumin/Globulin Ratio (1.0-2.1) Urine Color Yellow (YELLOW) Urine Clarity Clear (Clear) Urine pH 5.0 (5.0-8.0) Ur Specific [place] 1.006 (1.003-1.030) Urine Protein Negative (NEGATIVE) mg/dL Urine Glucose (UA) Normal (Normal) mg/dL Urine Ketones Negative (NEGATIVE) mg/dL Urine Blood 1+ H (NEGATIVE) Urine Nitrate Negative (NEGATIVE) Urine Bilirubin Negative (NEGATIVE) Urine Urobilinogen Normal (0.2-1.0) mg/dL Ur Leukocyte Esterase Neg (Negative) Julia/uL Urine WBC (Auto) 1 (0-5) /hpf Urine RBC (Auto) 6 H (0-3) /hpf Ur Squamous Epith Cells < 1 (0-5) /hpf Urine Bacteria Occ H (<OCC) U Random Total Protein (22-128) mg/g creat Urine Creatinine (20-370) mg/dL Urine Microalbumin mg/dL Microalb/Creat Ratio (<30) MONICA Screen (Negative) MONICA Titer MONIAC Titer 2 MONICA Pattern MONICA Pattern 2 01/09/18 01/09/18 01/09/18 Range/Units 06:41 06:41 06:41 WBC 6.4 (4.8-10.8) K/uL RBC 3.55 L (4.40-5.90) Mil/uL Hgb 10.0 L (12.0-18.0) g/dL Hct 31.1 L (35.0-51.0) % MCV 87.6 (80.0-94.0) fL MCH 28.3 (27.0-31.0) pg MCHC 32.3 L (33.0-37.0) g/dL RDW 16.9 H (11.5-14.5) % Plt Count 316 (130-400) K/uL MPV 8.2 (7.2-11.7) fL Neut % (Auto) 77.2 H (50.0-75.0) % Lymph % (Auto) 11.1 L (20.0-40.0) % [place] % (Auto) 10.6 H (0.0-10.0) % Eos % (Auto) 0.7 (0.0-4.0) % Baso % (Auto) 0.4 (0.0-2.0) % Neut # (Auto) 4.9 (1.8-7.0) K/uL Lymph # (Auto) 0.7 L (1.0-4.3) K/uL [place] # (Auto) 0.7 (0.0-0.8) K/uL Eos # (Auto) 0.0 (0.0-0.7) K/uL Baso # (Auto) 0.0 (0.0-0.2) K/uL APTT 60 H D (21-34) SECONDS Sodium 141 (132-148) mmol/L Potassium 4.9 (3.6-5.2) mmol/L Chloride 103 (98-107) mmol/L Carbon Dioxide 26 (22-30) mmol/L Anion Gap 17 (10-20) BUN 56 H (9-20) mg/dL Creatinine 3.9 H (0.8-1.5) mg/dL Est GFR ( Amer) 19 Est GFR (Non-Af Amer) 16 POC Glucose (mg/dL) (65-110) mg/dL Random Glucose 91 (75-110) mg/dL Calcium 8.4 L (8.6-10.4) mg/dl Magnesium 2.0 (1.6-2.3) mg/dL Total Bilirubin 0.9 (0.2-1.3) mg/dL AST 282 H (17-59) U/L ALT 508 H (21-72) U/L Alkaline Phosphatase 342 H (38-126) U/L NT-Pro-B Natriuret Pep (0-900) pg/mL Total Protein 6.5 (6.3-8.3) g/dL Albumin 3.3 L (3.5-5.0) g/dL Globulin 3.2 (2.2-3.9) gm/dL Albumin/Globulin Ratio 1.0 (1.0-2.1) Urine Color (YELLOW) Urine Clarity (Clear) Urine pH (5.0-8.0) Ur Specific [place] (1.003-1.030) Urine Protein (NEGATIVE) mg/dL Urine Glucose (UA) (Normal) mg/dL Urine Ketones (NEGATIVE) mg/dL Urine Blood (NEGATIVE) Urine Nitrate (NEGATIVE) Urine Bilirubin (NEGATIVE) Urine Urobilinogen (0.2-1.0) mg/dL Ur Leukocyte Esterase (Negative) Julia/uL Urine WBC (Auto) (0-5) /hpf Urine RBC (Auto) (0-3) /hpf Ur Squamous Epith Cells (0-5) /hpf Urine Bacteria (<OCC) U Random Total Protein (22-128) mg/g creat Urine Creatinine (20-370) mg/dL Urine Microalbumin mg/dL Microalb/Creat Ratio (<30) MONICA Screen (Negative) MONICA Titer MONICA Titer 2 MONICA Pattern MONICA Pattern 2 01/08/18 01/08/18 01/08/18 Range/Units 22:06 20:59 18:20 WBC (4.8-10.8) K/uL RBC (4.40-5.90) Mil/uL Hgb (12.0-18.0) g/dL Hct (35.0-51.0) % MCV (80.0-94.0) fL MCH (27.0-31.0) pg MCHC (33.0-37.0) g/dL RDW (11.5-14.5) % Plt Count (130-400) K/uL MPV (7.2-11.7) fL Neut % (Auto) (50.0-75.0) % Lymph % (Auto) (20.0-40.0) % [place] % (Auto) (0.0-10.0) % Eos % (Auto) (0.0-4.0) % Baso % (Auto) (0.0-2.0) % Neut # (Auto) (1.8-7.0) K/uL Lymph # (Auto) (1.0-4.3) K/uL [place] # (Auto) (0.0-0.8) K/uL Eos # (Auto) (0.0-0.7) K/uL Baso # (Auto) (0.0-0.2) K/uL APTT 80 H D 86 H D (21-34) SECONDS Sodium (132-148) mmol/L Potassium (3.6-5.2) mmol/L Chloride (98-107) mmol/L Carbon Dioxide (22-30) mmol/L Anion Gap (10-20) BUN (9-20) mg/dL Creatinine (0.8-1.5) mg/dL Est GFR ( Amer) Est GFR (Non-Af Amer) POC Glucose (mg/dL) 141 H (65-110) mg/dL Random Glucose (75-110) mg/dL Calcium (8.6-10.4) mg/dl Magnesium (1.6-2.3) mg/dL Total Bilirubin (0.2-1.3) mg/dL AST (17-59) U/L ALT (21-72) U/L Alkaline Phosphatase (38-126) U/L NT-Pro-B Natriuret Pep (0-900) pg/mL Total Protein (6.3-8.3) g/dL Albumin (3.5-5.0) g/dL Globulin (2.2-3.9) gm/dL Albumin/Globulin Ratio (1.0-2.1) Urine Color (YELLOW) Urine Clarity (Clear) Urine pH (5.0-8.0) Ur Specific [place] (1.003-1.030) Urine Protein (NEGATIVE) mg/dL Urine Glucose (UA) (Normal) mg/dL Urine Ketones (NEGATIVE) mg/dL Urine Blood (NEGATIVE) Urine Nitrate (NEGATIVE) Urine Bilirubin (NEGATIVE) Urine Urobilinogen (0.2-1.0) mg/dL Ur Leukocyte Esterase (Negative) Julia/uL Urine WBC (Auto) (0-5) /hpf Urine RBC (Auto) (0-3) /hpf Ur Squamous Epith Cells (0-5) /hpf Urine Bacteria (<OCC) U Random Total Protein (22-128) mg/g creat Urine Creatinine (20-370) mg/dL Urine Microalbumin mg/dL Microalb/Creat Ratio (<30) MONICA Screen (Negative) MONICA Titer MONICA Titer 2 MONICA Pattern MONICA Pattern 2 01/08/18 01/08/18 01/07/18 Range/Units 18:20 17:40 11:30 WBC (4.8-10.8) K/uL RBC (4.40-5.90) Mil/uL Hgb (12.0-18.0) g/dL Hct (35.0-51.0) % MCV (80.0-94.0) fL MCH (27.0-31.0) pg MCHC (33.0-37.0) g/dL RDW (11.5-14.5) % Plt Count (130-400) K/uL MPV (7.2-11.7) fL Neut % (Auto) (50.0-75.0) % Lymph % (Auto) (20.0-40.0) % [place] % (Auto) (0.0-10.0) % Eos % (Auto) (0.0-4.0) % Baso % (Auto) (0.0-2.0) % Neut # (Auto) (1.8-7.0) K/uL Lymph # (Auto) (1.0-4.3) K/uL [place] # (Auto) (0.0-0.8) K/uL Eos # (Auto) (0.0-0.7) K/uL Baso # (Auto) (0.0-0.2) K/uL APTT (21-34) SECONDS Sodium (132-148) mmol/L Potassium (3.6-5.2) mmol/L Chloride (98-107) mmol/L Carbon Dioxide (22-30) mmol/L Anion Gap (10-20) BUN (9-20) mg/dL Creatinine (0.8-1.5) mg/dL Est GFR ( Amer) Est GFR (Non-Af Amer) POC Glucose (mg/dL) 168 H (65-110) mg/dL Random Glucose (75-110) mg/dL Calcium (8.6-10.4) mg/dl Magnesium (1.6-2.3) mg/dL Total Bilirubin (0.2-1.3) mg/dL AST (17-59) U/L ALT (21-72) U/L Alkaline Phosphatase (38-126) U/L NT-Pro-B Natriuret Pep 7980 H (0-900) pg/mL Total Protein (6.3-8.3) g/dL Albumin (3.5-5.0) g/dL Globulin (2.2-3.9) gm/dL Albumin/Globulin Ratio (1.0-2.1) Urine Color (YELLOW) Urine Clarity (Clear) Urine pH (5.0-8.0) Ur Specific [place] (1.003-1.030) Urine Protein (NEGATIVE) mg/dL Urine Glucose (UA) (Normal) mg/dL Urine Ketones (NEGATIVE) mg/dL Urine Blood (NEGATIVE) Urine Nitrate (NEGATIVE) Urine Bilirubin (NEGATIVE) Urine Urobilinogen (0.2-1.0) mg/dL Ur Leukocyte Esterase (Negative) Julia/uL Urine WBC (Auto) (0-5) /hpf Urine RBC (Auto) (0-3) /hpf Ur Squamous Epith Cells (0-5) /hpf Urine Bacteria (<OCC) U Random Total Protein (22-128) mg/g creat Urine Creatinine (20-370) mg/dL Urine Microalbumin mg/dL Microalb/Creat Ratio (<30) MONICA Screen Negative (Negative) MONICA Titer TEST NOT PERFORMED MONICA Titer 2 TEST NOT PERFORMED MONICA Pattern TEST NOT PERFORMED MONICA Pattern 2 TEST NOT PERFORMED 01/06/18 01/06/18 Range/Units 15:29 15:29 WBC (4.8-10.8) K/uL RBC (4.40-5.90) Mil/uL Hgb (12.0-18.0) g/dL Hct (35.0-51.0) % MCV (80.0-94.0) fL MCH (27.0-31.0) pg MCHC (33.0-37.0) g/dL RDW (11.5-14.5) % Plt Count (130-400) K/uL MPV (7.2-11.7) fL Neut % (Auto) (50.0-75.0) % Lymph % (Auto) (20.0-40.0) % [place] % (Auto) (0.0-10.0) % Eos % (Auto) (0.0-4.0) % Baso % (Auto) (0.0-2.0) % Neut # (Auto) (1.8-7.0) K/uL Lymph # (Auto) (1.0-4.3) K/uL [place] # (Auto) (0.0-0.8) K/uL Eos # (Auto) (0.0-0.7) K/uL Baso # (Auto) (0.0-0.2) K/uL APTT (21-34) SECONDS Sodium (132-148) mmol/L Potassium (3.6-5.2) mmol/L Chloride (98-107) mmol/L Carbon Dioxide (22-30) mmol/L Anion Gap (10-20) BUN (9-20) mg/dL Creatinine (0.8-1.5) mg/dL Est GFR ( Amer) Est GFR (Non-Af Amer) POC Glucose (mg/dL) (65-110) mg/dL Random Glucose (75-110) mg/dL Calcium (8.6-10.4) mg/dl Magnesium (1.6-2.3) mg/dL Total Bilirubin (0.2-1.3) mg/dL AST (17-59) U/L ALT (21-72) U/L Alkaline Phosphatase (38-126) U/L NT-Pro-B Natriuret Pep (0-900) pg/mL Total Protein (6.3-8.3) g/dL Albumin (3.5-5.0) g/dL Globulin (2.2-3.9) gm/dL Albumin/Globulin Ratio (1.0-2.1) Urine Color (YELLOW) Urine Clarity (Clear) Urine pH (5.0-8.0) Ur Specific [place] (1.003-1.030) Urine Protein (NEGATIVE) mg/dL Urine Glucose (UA) (Normal) mg/dL Urine Ketones (NEGATIVE) mg/dL Urine Blood (NEGATIVE) Urine Nitrate (NEGATIVE) Urine Bilirubin (NEGATIVE) Urine Urobilinogen (0.2-1.0) mg/dL Ur Leukocyte Esterase (Negative) Julia/uL Urine WBC (Auto) (0-5) /hpf Urine RBC (Auto) (0-3) /hpf Ur Squamous Epith Cells (0-5) /hpf Urine Bacteria (<OCC) U Random Total Protein 4798 H (22-128) mg/g creat Urine Creatinine 27 (20-370) mg/dL Urine Microalbumin 46.9 mg/dL Microalb/Creat Ratio 1737 H (<30) MONICA Screen (Negative) MONICA Titer MONICA Titer 2 MONICA Pattern MONICA Pattern 2 Laboratory Results - last 24 hr 01/06/18 01/06/18 01/07/18 15:29 15:29 11:30 WBC RBC Hgb Hct MCV MCH MCHC RDW Plt Count MPV Neut % (Auto) Lymph % (Auto) [place] % (Auto) Eos % (Auto) Baso % (Auto) Neut # (Auto) Lymph # (Auto) [place] # (Auto) Eos # (Auto) Baso # (Auto) APTT Sodium Potassium Chloride Carbon Dioxide Anion Gap BUN Creatinine Est GFR ( Amer) Est GFR (Non-Af Amer) POC Glucose (mg/dL) Random Glucose Calcium Magnesium Total Bilirubin AST ALT Alkaline Phosphatase NT-Pro-B Natriuret Pep Total Protein Albumin Globulin Albumin/Globulin Ratio Urine Color Urine Clarity Urine pH Ur Specific [place] Urine Protein Urine Glucose (UA) Urine Ketones Urine Blood Urine Nitrate Urine Bilirubin Urine Urobilinogen Ur Leukocyte Esterase Urine WBC (Auto) Urine RBC (Auto) Ur Squamous Epith Cells Urine Bacteria U Random Total Protein 4798 H Urine Creatinine 27 Urine Microalbumin 46.9 Microalb/Creat Ratio 1737 H MONICA Screen Negative MONICA Titer TEST NOT PERFORMED MONICA Titer 2 TEST NOT PERFORMED MONICA Pattern TEST NOT PERFORMED MONICA Pattern 2 TEST NOT PERFORMED 01/08/18 01/08/18 01/08/18 17:40 18:20 18:20 WBC RBC Hgb Hct MCV MCH MCHC RDW Plt Count MPV Neut % (Auto) Lymph % (Auto) [place] % (Auto) Eos % (Auto) Baso % (Auto) Neut # (Auto) Lymph # (Auto) [place] # (Auto) Eos # (Auto) Baso # (Auto) APTT 86 H D Sodium Potassium Chloride Carbon Dioxide Anion Gap BUN Creatinine Est GFR ( Amer) Est GFR (Non-Af Amer) POC Glucose (mg/dL) 168 H Random Glucose Calcium Magnesium Total Bilirubin AST ALT Alkaline Phosphatase NT-Pro-B Natriuret Pep 7980 H Total Protein Albumin Globulin Albumin/Globulin Ratio Urine Color Urine Clarity Urine pH Ur Specific [place] Urine Protein Urine Glucose (UA) Urine Ketones Urine Blood Urine Nitrate Urine Bilirubin Urine Urobilinogen Ur Leukocyte Esterase Urine WBC (Auto) Urine RBC (Auto) Ur Squamous Epith Cells Urine Bacteria U Random Total Protein Urine Creatinine Urine Microalbumin Microalb/Creat Ratio MONIAC Screen MONICA Titer MONICA Titer 2 MONICA Pattern MONICA Pattern 2 01/08/18 01/08/18 01/09/18 20:59 22:06 06:41 WBC RBC Hgb Hct MCV MCH MCHC RDW Plt Count MPV Neut % (Auto) Lymph % (Auto) [place] % (Auto) Eos % (Auto) Baso % (Auto) Neut # (Auto) Lymph # (Auto) [place] # (Auto) Eos # (Auto) Baso # (Auto) APTT 80 H D Sodium 141 Potassium 4.9 Chloride 103 Carbon Dioxide 26 Anion Gap 17 BUN 56 H Creatinine 3.9 H Est GFR ( Amer) 19 Est GFR (Non-Af Amer) 16 POC Glucose (mg/dL) 141 H Random Glucose 91 Calcium 8.4 L Magnesium 2.0 Total Bilirubin 0.9 AST 282 H ALT 508 H Alkaline Phosphatase 342 H NT-Pro-B Natriuret Pep Total Protein 6.5 Albumin 3.3 L Globulin 3.2 Albumin/Globulin Ratio 1.0 Urine Color Urine Clarity Urine pH Ur Specific [place] Urine Protein Urine Glucose (UA) Urine Ketones Urine Blood Urine Nitrate Urine Bilirubin Urine Urobilinogen Ur Leukocyte Esterase Urine WBC (Auto) Urine RBC (Auto) Ur Squamous Epith Cells Urine Bacteria U Random Total Protein Urine Creatinine Urine Microalbumin Microalb/Creat Ratio MONICA Screen MONICA Titer MONICA Titer 2 MONICA Pattern MONICA Pattern 2 01/09/18 01/09/18 01/09/18 06:41 06:41 07:14 WBC 6.4 RBC 3.55 L Hgb 10.0 L Hct 31.1 L MCV 87.6 MCH 28.3 MCHC 32.3 L RDW 16.9 H Plt Count 316 MPV 8.2 Neut % (Auto) 77.2 H Lymph % (Auto) 11.1 L [place] % (Auto) 10.6 H Eos % (Auto) 0.7 Baso % (Auto) 0.4 Neut # (Auto) 4.9 Lymph # (Auto) 0.7 L [place] # (Auto) 0.7 Eos # (Auto) 0.0 Baso # (Auto) 0.0 APTT 60 H D Sodium Potassium Chloride Carbon Dioxide Anion Gap BUN Creatinine Est GFR ( Amer) Est GFR (Non-Af Amer) POC Glucose (mg/dL) 87 Random Glucose Calcium Magnesium Total Bilirubin AST ALT Alkaline Phosphatase NT-Pro-B Natriuret Pep Total Protein Albumin Globulin Albumin/Globulin Ratio Urine Color Urine Clarity Urine pH Ur Specific [place] Urine Protein Urine Glucose (UA) Urine Ketones Urine Blood Urine Nitrate Urine Bilirubin Urine Urobilinogen Ur Leukocyte Esterase Urine WBC (Auto) Urine RBC (Auto) Ur Squamous Epith Cells Urine Bacteria U Random Total Protein Urine Creatinine Urine Microalbumin Microalb/Creat Ratio MONICA Screen MONICA Titer MONICA Titer 2 MONICA Pattern MONICA Pattern 2 01/09/18 01/09/18 11:56 14:46 WBC RBC Hgb Hct MCV MCH MCHC RDW Plt Count MPV Neut % (Auto) Lymph % (Auto) [place] % (Auto) Eos % (Auto) Baso % (Auto) Neut # (Auto) Lymph # (Auto) [place] # (Auto) Eos # (Auto) Baso # (Auto) APTT Sodium Potassium Chloride Carbon Dioxide Anion Gap BUN Creatinine Est GFR ( Amer) Est GFR (Non-Af Amer) POC Glucose (mg/dL) 165 H Random Glucose Calcium Magnesium Total Bilirubin AST ALT Alkaline Phosphatase NT-Pro-B Natriuret Pep Total Protein Albumin Globulin Albumin/Globulin Ratio Urine Color Yellow Urine Clarity Clear Urine pH 5.0 Ur Specific [place] 1.006 Urine Protein Negative Urine Glucose (UA) Normal Urine Ketones Negative Urine Blood 1+ H Urine Nitrate Negative Urine Bilirubin Negative Urine Urobilinogen Normal Ur Leukocyte Esterase Neg Urine WBC (Auto) 1 Urine RBC (Auto) 6 H Ur Squamous Epith Cells < 1 Urine Bacteria Occ H U Random Total Protein Urine Creatinine Urine Microalbumin Microalb/Creat Ratio MONICA Screen MONICA Titer MONICA Titer 2 MONICA Pattern MONICA Pattern 2 Fingerstick Blood Sugar Results: 165 Review of Systems - Review of Systems All systems: reviewed and no additional remarkable complaints except (as mentioned in HPI) Critical Care Progress Note - Nutrition Nutrition: Nutrition Category Date Time Status Renal Diet [DIET] Diets 01/06/18 Breakfast Active Assessment/Plan - Assessment and Plan (Free Text) Assessment: 67 yo M with PMH of CAD s/p CABG 11 days ago, DM, and remote hx of cocaine abuse (claims last use > 20 yrs ago), presenting to with severe shortness of breath x2-3 days, and was admitted to ICU for NSTEMI s/p recent CABG, and signs of fluid overload. He developed anuric renal failure, s/p 2 sessions of HD. Plan: Neuro: - AAOx3 - maintain normothermia Pulm: - CXR today shows bilateral pleural effusions, unchanged cardiomegaly - nasal cannula as tolerated Cardio: - stable bradycardia, rhythm regular on examination - Echo obtained, EF 35%, moderate to severely impaired systolic function, mild MR, mild TR, flattened septum - Given CAD and recent CABG, now signs of diffuse fluid overload (LE and UE with pitting edema, lung cxr with bilateral effusions) - No beta-rosa due to overnight bradycardic episodes - Continue ASA, Plavix, Statin, Heparin drip - Trops: 3.95 -> 3.84 -> 4.4 (latest); suggestive of NSTEMI; continue heparin drip - Cardio consulted, appreciate all recs GI: - Renal dialysis diet - Pepcid for GI ppx Renal: - K improved to 4.9 s/p HD - Nephro following (Dr. Powers), appreciate all recs - consider kidney biopsy as patient has nephrotic range proteinuria - Cr 1.9 on admit, 2.8 today - UDS negative Heme: - continue to monitor Hgb - heparin drip covers for DVT ppx ID: - leukocytosis resolved, afebrile - Vanco and Zosyn x1 each in ED - wound cultures show proteus mirabilis, klebsiella, e.faecalis - Cipro 400 mg IV Q12H Dispo: ICU FEN: Renal dialysis diet Access: Peripheral IV x1, R groin TLC dialysis cath Consults: Nephro, Cardio Ppx: Heparin covers for DVT, Pepcid for GI CODE: Unknown, so Full by default Seen, reviewed, and discussed with attending, Dr. Stone Mello PGY-1 - Date & Time Date: 01/09/18 Time: 08:00 <El Ritter - Last Filed: 01/09/18 18:54> CCU Objective - Vital Signs / Intake & Output Vital Signs (Last 4 hours): Vital Signs Temp Pulse Resp BP BP Pulse Ox 01/09/18 18:37 76 20 105/59 L 93 L 01/09/18 18:21 74 20 104/60 92 L 01/09/18 18:06 74 17 107/63 92 L 01/09/18 18:00 75 22 103/61 92 L 01/09/18 17:51 75 18 103/61 92 L 01/09/18 17:40 18 109/65 100 01/09/18 17:36 76 24 109/65 92 L 01/09/18 17:22 77 26 H 114/65 86 L 01/09/18 17:20 18 104/71 100 01/09/18 17:06 76 24 104/71 92 L 01/09/18 17:00 76 24 114/69 92 L 01/09/18 16:51 74 19 114/69 92 L 01/09/18 16:36 74 17 105/64 92 L 01/09/18 16:30 18 105/64 100 01/09/18 16:21 74 16 110/69 92 L 01/09/18 16:15 16 110/69 100 01/09/18 16:06 75 20 118/70 92 L 01/09/18 16:00 97.5 F L 76 20 118/70 118/70 100 01/09/18 15:51 60 18 114/65 91 L 01/09/18 15:36 58 L 17 110/60 90 L 01/09/18 15:00 69 92 L 01/09/18 14:56 69 119/69 91 L Intake and Output (Last 8hrs): Intake & Output 01/09/18 01/09/18 01/09/18 06:59 14:59 22:59 Intake Total 96 656 168 Output Total 280 230 Balance 96 376 -62 Intake: Intake, IV Amount 96 296 48 RAC 2 Port 200 Right Antecubital 96 96 48 Oral 360 120 Output: Urine 280 230 Urethral (Anne) 50 Urine, Voided 280 180 - Medications Active Medications: Active Medications Generic Name Dose Route Start Last Admin Trade Name Freq PRN Reason Stop Dose Admin Aspirin 81 mg 01/06/18 10:00 01/09/18 09:22 Aspirin Chewable PO 81 mg DAILY RIKI Administration Clopidogrel Bisulfate 75 mg 01/06/18 10:00 01/09/18 09:23 Plavix PO 75 mg DAILY RIKI Administration Dextrose 0 ml 01/06/18 03:37 Dextrose 50% Inj IV STAT PRN Hypoglycemia Protocol Protocol Dextrose 0 gm 01/06/18 03:37 Glutose 15 PO ONCE PRN Hypoglycemia Protocol Protocol Famotidine 20 mg 01/06/18 10:00 01/09/18 09:23 Pepcid PO 20 mg DAILY RIKI Administration Furosemide 40 mg 01/06/18 10:00 01/09/18 09:22 Lasix IVP 40 mg DAILY RIKI Administration Glucagon 0 mg 01/06/18 03:37 Glucagen Diagnostic Kit IM STAT PRN Hypoglycemia Protocol Protocol Ciprofloxacin 400 mg in 200 mls @ 133 mls/hr 01/09/18 11:00 01/09/18 11:16 Cipro 400mg/200ml Dsw IVPB 133 mls/hr Q12H RIKI Administration Protocol Heparin Sodium/Sodium Chloride 25,000 units in 250 mls @ 6.941 mls/hr 01/09/18 18:23 Heparin 16713 Units/250ml 1/2 Normal Saline IV .Q24H PRN PROTOCOL Protocol 9 UNITS/KG/HR Insulin Aspart 0 unit 01/08/18 21:30 01/09/18 16:20 Novolog SC Not Given ACHS RIKI Protocol Midodrine 10 mg 01/08/18 10:00 01/09/18 17:24 Proamatine PO 10 mg TID RIKI Administration Rosuvastatin Calcium 5 mg 01/06/18 22:00 01/08/18 21:32 Crestor PO 5 mg HS RIKI Administration - Patient Studies Lab Studies: Microbiology Studies 01/06/18 07:20 Gram Stain - Final Leg - Right Wound Culture - Preliminary Proteus Mirabilis Klebsiella Pneumoniae Ssp Pneu Enterococcus Faecalis 01/05/18 20:48 Blood Culture - Preliminary Blood NO GROWTH AFTER 3 DAYS 01/05/18 20:18 Blood Culture - Preliminary Blood NO GROWTH AFTER 3 DAYS Lab Studies 01/09/18 01/09/18 01/09/18 Range/Units 16:30 16:13 14:46 WBC (4.8-10.8) K/uL RBC (4.40-5.90) Mil/uL Hgb (12.0-18.0) g/dL Hct (35.0-51.0) % MCV (80.0-94.0) fL MCH (27.0-31.0) pg MCHC (33.0-37.0) g/dL RDW (11.5-14.5) % Plt Count (130-400) K/uL MPV (7.2-11.7) fL Neut % (Auto) (50.0-75.0) % Lymph % (Auto) (20.0-40.0) % [place] % (Auto) (0.0-10.0) % Eos % (Auto) (0.0-4.0) % Baso % (Auto) (0.0-2.0) % Neut # (Auto) (1.8-7.0) K/uL Lymph # (Auto) (1.0-4.3) K/uL [place] # (Auto) (0.0-0.8) K/uL Eos # (Auto) (0.0-0.7) K/uL Baso # (Auto) (0.0-0.2) K/uL APTT (21-34) SECONDS Sodium (132-148) mmol/L Potassium (3.6-5.2) mmol/L Chloride (98-107) mmol/L Carbon Dioxide (22-30) mmol/L Anion Gap (10-20) BUN (9-20) mg/dL Creatinine (0.8-1.5) mg/dL Est GFR ( Amer) Est GFR (Non-Af Amer) POC Glucose (mg/dL) 117 H (65-110) mg/dL Random Glucose (75-110) mg/dL Uric Acid 4.9 (3.5-8.5) mg/dL Calcium (8.6-10.4) mg/dl Phosphorus 4.6 H (2.5-4.5) mg/dL Magnesium (1.6-2.3) mg/dL Total Bilirubin (0.2-1.3) mg/dL AST (17-59) U/L ALT (21-72) U/L Alkaline Phosphatase (38-126) U/L Total Creatine Kinase 23 L (55-170) U/L Total Protein (6.3-8.3) g/dL Albumin (3.5-5.0) g/dL Globulin (2.2-3.9) gm/dL Albumin/Globulin Ratio (1.0-2.1) Urine Color Yellow (YELLOW) Urine Clarity Clear (Clear) Urine pH 5.0 (5.0-8.0) Ur Specific [place] 1.006 (1.003-1.030) Urine Protein Negative (NEGATIVE) mg/dL Urine Glucose (UA) Normal (Normal) mg/dL Urine Ketones Negative (NEGATIVE) mg/dL Urine Blood 1+ H (NEGATIVE) Urine Nitrate Negative (NEGATIVE) Urine Bilirubin Negative (NEGATIVE) Urine Urobilinogen Normal (0.2-1.0) mg/dL Ur Leukocyte Esterase Neg (Negative) Julia/uL Urine WBC (Auto) 1 (0-5) /hpf Urine RBC (Auto) 6 H (0-3) /hpf Ur Squamous Epith Cells < 1 (0-5) /hpf Urine Bacteria Occ H (<OCC) U Random Total Protein (22-128) mg/g creat Urine Creatinine (20-370) mg/dL Urine Microalbumin mg/dL Microalb/Creat Ratio (<30) Serum Immunofixation (Not Detected) 01/09/18 01/09/18 01/09/18 Range/Units 11:56 07:14 06:41 WBC (4.8-10.8) K/uL RBC (4.40-5.90) Mil/uL Hgb (12.0-18.0) g/dL Hct (35.0-51.0) % MCV (80.0-94.0) fL MCH (27.0-31.0) pg MCHC (33.0-37.0) g/dL RDW (11.5-14.5) % Plt Count (130-400) K/uL MPV (7.2-11.7) fL Neut % (Auto) (50.0-75.0) % Lymph % (Auto) (20.0-40.0) % [place] % (Auto) (0.0-10.0) % Eos % (Auto) (0.0-4.0) % Baso % (Auto) (0.0-2.0) % Neut # (Auto) (1.8-7.0) K/uL Lymph # (Auto) (1.0-4.3) K/uL [place] # (Auto) (0.0-0.8) K/uL Eos # (Auto) (0.0-0.7) K/uL Baso # (Auto) (0.0-0.2) K/uL APTT 60 H D (21-34) SECONDS Sodium (132-148) mmol/L Potassium (3.6-5.2) mmol/L Chloride (98-107) mmol/L Carbon Dioxide (22-30) mmol/L Anion Gap (10-20) BUN (9-20) mg/dL Creatinine (0.8-1.5) mg/dL Est GFR ( Amer) Est GFR (Non-Af Amer) POC Glucose (mg/dL) 165 H 87 (65-110) mg/dL Random Glucose (75-110) mg/dL Uric Acid (3.5-8.5) mg/dL Calcium (8.6-10.4) mg/dl Phosphorus (2.5-4.5) mg/dL Magnesium (1.6-2.3) mg/dL Total Bilirubin (0.2-1.3) mg/dL AST (17-59) U/L ALT (21-72) U/L Alkaline Phosphatase (38-126) U/L Total Creatine Kinase (55-170) U/L Total Protein (6.3-8.3) g/dL Albumin (3.5-5.0) g/dL Globulin (2.2-3.9) gm/dL Albumin/Globulin Ratio (1.0-2.1) Urine Color (YELLOW) Urine Clarity (Clear) Urine pH (5.0-8.0) Ur Specific [place] (1.003-1.030) Urine Protein (NEGATIVE) mg/dL Urine Glucose (UA) (Normal) mg/dL Urine Ketones (NEGATIVE) mg/dL Urine Blood (NEGATIVE) Urine Nitrate (NEGATIVE) Urine Bilirubin (NEGATIVE) Urine Urobilinogen (0.2-1.0) mg/dL Ur Leukocyte Esterase (Negative) Julia/uL Urine WBC (Auto) (0-5) /hpf Urine RBC (Auto) (0-3) /hpf Ur Squamous Epith Cells (0-5) /hpf Urine Bacteria (<OCC) U Random Total Protein (22-128) mg/g creat Urine Creatinine (20-370) mg/dL Urine Microalbumin mg/dL Microalb/Creat Ratio (<30) Serum Immunofixation (Not Detected) 01/09/18 01/09/18 01/08/18 Range/Units 06:41 06:41 22:06 WBC 6.4 (4.8-10.8) K/uL RBC 3.55 L (4.40-5.90) Mil/uL Hgb 10.0 L (12.0-18.0) g/dL Hct 31.1 L (35.0-51.0) % MCV 87.6 (80.0-94.0) fL MCH 28.3 (27.0-31.0) pg MCHC 32.3 L (33.0-37.0) g/dL RDW 16.9 H (11.5-14.5) % Plt Count 316 (130-400) K/uL MPV 8.2 (7.2-11.7) fL Neut % (Auto) 77.2 H (50.0-75.0) % Lymph % (Auto) 11.1 L (20.0-40.0) % [place] % (Auto) 10.6 H (0.0-10.0) % Eos % (Auto) 0.7 (0.0-4.0) % Baso % (Auto) 0.4 (0.0-2.0) % Neut # (Auto) 4.9 (1.8-7.0) K/uL Lymph # (Auto) 0.7 L (1.0-4.3) K/uL [place] # (Auto) 0.7 (0.0-0.8) K/uL Eos # (Auto) 0.0 (0.0-0.7) K/uL Baso # (Auto) 0.0 (0.0-0.2) K/uL APTT 80 H D (21-34) SECONDS Sodium 141 (132-148) mmol/L Potassium 4.9 (3.6-5.2) mmol/L Chloride 103 (98-107) mmol/L Carbon Dioxide 26 (22-30) mmol/L Anion Gap 17 (10-20) BUN 56 H (9-20) mg/dL Creatinine 3.9 H (0.8-1.5) mg/dL Est GFR ( Amer) 19 Est GFR (Non-Af Amer) 16 POC Glucose (mg/dL) (65-110) mg/dL Random Glucose 91 (75-110) mg/dL Uric Acid (3.5-8.5) mg/dL Calcium 8.4 L (8.6-10.4) mg/dl Phosphorus (2.5-4.5) mg/dL Magnesium 2.0 (1.6-2.3) mg/dL Total Bilirubin 0.9 (0.2-1.3) mg/dL AST 282 H (17-59) U/L ALT 508 H (21-72) U/L Alkaline Phosphatase 342 H (38-126) U/L Total Creatine Kinase (55-170) U/L Total Protein 6.5 (6.3-8.3) g/dL Albumin 3.3 L (3.5-5.0) g/dL Globulin 3.2 (2.2-3.9) gm/dL Albumin/Globulin Ratio 1.0 (1.0-2.1) Urine Color (YELLOW) Urine Clarity (Clear) Urine pH (5.0-8.0) Ur Specific [place] (1.003-1.030) Urine Protein (NEGATIVE) mg/dL Urine Glucose (UA) (Normal) mg/dL Urine Ketones (NEGATIVE) mg/dL Urine Blood (NEGATIVE) Urine Nitrate (NEGATIVE) Urine Bilirubin (NEGATIVE) Urine Urobilinogen (0.2-1.0) mg/dL Ur Leukocyte Esterase (Negative) Julia/uL Urine WBC (Auto) (0-5) /hpf Urine RBC (Auto) (0-3) /hpf Ur Squamous Epith Cells (0-5) /hpf Urine Bacteria (<OCC) U Random Total Protein (22-128) mg/g creat Urine Creatinine (20-370) mg/dL Urine Microalbumin mg/dL Microalb/Creat Ratio (<30) Serum Immunofixation (Not Detected) 01/08/18 01/07/18 01/06/18 Range/Units 20:59 11:30 15:29 WBC (4.8-10.8) K/uL RBC (4.40-5.90) Mil/uL Hgb (12.0-18.0) g/dL Hct (35.0-51.0) % MCV (80.0-94.0) fL MCH (27.0-31.0) pg MCHC (33.0-37.0) g/dL RDW (11.5-14.5) % Plt Count (130-400) K/uL MPV (7.2-11.7) fL Neut % (Auto) (50.0-75.0) % Lymph % (Auto) (20.0-40.0) % [place] % (Auto) (0.0-10.0) % Eos % (Auto) (0.0-4.0) % Baso % (Auto) (0.0-2.0) % Neut # (Auto) (1.8-7.0) K/uL Lymph # (Auto) (1.0-4.3) K/uL [place] # (Auto) (0.0-0.8) K/uL Eos # (Auto) (0.0-0.7) K/uL Baso # (Auto) (0.0-0.2) K/uL APTT (21-34) SECONDS Sodium (132-148) mmol/L Potassium (3.6-5.2) mmol/L Chloride (98-107) mmol/L Carbon Dioxide (22-30) mmol/L Anion Gap (10-20) BUN (9-20) mg/dL Creatinine (0.8-1.5) mg/dL Est GFR ( Amer) Est GFR (Non-Af Amer) POC Glucose (mg/dL) 141 H (65-110) mg/dL Random Glucose (75-110) mg/dL Uric Acid (3.5-8.5) mg/dL Calcium (8.6-10.4) mg/dl Phosphorus (2.5-4.5) mg/dL Magnesium (1.6-2.3) mg/dL Total Bilirubin (0.2-1.3) mg/dL AST (17-59) U/L ALT (21-72) U/L Alkaline Phosphatase (38-126) U/L Total Creatine Kinase (55-170) U/L Total Protein (6.3-8.3) g/dL Albumin (3.5-5.0) g/dL Globulin (2.2-3.9) gm/dL Albumin/Globulin Ratio (1.0-2.1) Urine Color (YELLOW) Urine Clarity (Clear) Urine pH (5.0-8.0) Ur Specific [place] (1.003-1.030) Urine Protein (NEGATIVE) mg/dL Urine Glucose (UA) (Normal) mg/dL Urine Ketones (NEGATIVE) mg/dL Urine Blood (NEGATIVE) Urine Nitrate (NEGATIVE) Urine Bilirubin (NEGATIVE) Urine Urobilinogen (0.2-1.0) mg/dL Ur Leukocyte Esterase (Negative) Julia/uL Urine WBC (Auto) (0-5) /hpf Urine RBC (Auto) (0-3) /hpf Ur Squamous Epith Cells (0-5) /hpf Urine Bacteria (<OCC) U Random Total Protein (22-128) mg/g creat Urine Creatinine 27 (20-370) mg/dL Urine Microalbumin 46.9 mg/dL Microalb/Creat Ratio 1737 H (<30) Serum Immunofixation Not detected (Not Detected) 01/06/18 Range/Units 15:29 WBC (4.8-10.8) K/uL RBC (4.40-5.90) Mil/uL Hgb (12.0-18.0) g/dL Hct (35.0-51.0) % MCV (80.0-94.0) fL MCH (27.0-31.0) pg MCHC (33.0-37.0) g/dL RDW (11.5-14.5) % Plt Count (130-400) K/uL MPV (7.2-11.7) fL Neut % (Auto) (50.0-75.0) % Lymph % (Auto) (20.0-40.0) % [place] % (Auto) (0.0-10.0) % Eos % (Auto) (0.0-4.0) % Baso % (Auto) (0.0-2.0) % Neut # (Auto) (1.8-7.0) K/uL Lymph # (Auto) (1.0-4.3) K/uL [place] # (Auto) (0.0-0.8) K/uL Eos # (Auto) (0.0-0.7) K/uL Baso # (Auto) (0.0-0.2) K/uL APTT (21-34) SECONDS Sodium (132-148) mmol/L Potassium (3.6-5.2) mmol/L Chloride (98-107) mmol/L Carbon Dioxide (22-30) mmol/L Anion Gap (10-20) BUN (9-20) mg/dL Creatinine (0.8-1.5) mg/dL Est GFR ( Amer) Est GFR (Non-Af Amer) POC Glucose (mg/dL) (65-110) mg/dL Random Glucose (75-110) mg/dL Uric Acid (3.5-8.5) mg/dL Calcium (8.6-10.4) mg/dl Phosphorus (2.5-4.5) mg/dL Magnesium (1.6-2.3) mg/dL Total Bilirubin (0.2-1.3) mg/dL AST (17-59) U/L ALT (21-72) U/L Alkaline Phosphatase (38-126) U/L Total Creatine Kinase (55-170) U/L Total Protein (6.3-8.3) g/dL Albumin (3.5-5.0) g/dL Globulin (2.2-3.9) gm/dL Albumin/Globulin Ratio (1.0-2.1) Urine Color (YELLOW) Urine Clarity (Clear) Urine pH (5.0-8.0) Ur Specific [place] (1.003-1.030) Urine Protein (NEGATIVE) mg/dL Urine Glucose (UA) (Normal) mg/dL Urine Ketones (NEGATIVE) mg/dL Urine Blood (NEGATIVE) Urine Nitrate (NEGATIVE) Urine Bilirubin (NEGATIVE) Urine Urobilinogen (0.2-1.0) mg/dL Ur Leukocyte Esterase (Negative) Julia/uL Urine WBC (Auto) (0-5) /hpf Urine RBC (Auto) (0-3) /hpf Ur Squamous Epith Cells (0-5) /hpf Urine Bacteria (<OCC) U Random Total Protein 4798 H (22-128) mg/g creat Urine Creatinine (20-370) mg/dL Urine Microalbumin mg/dL Microalb/Creat Ratio (<30) Serum Immunofixation (Not Detected) Laboratory Results - last 24 hr 01/06/18 01/06/18 01/07/18 15:29 15:29 11:30 WBC RBC Hgb Hct MCV MCH MCHC RDW Plt Count MPV Neut % (Auto) Lymph % (Auto) [place] % (Auto) Eos % (Auto) Baso % (Auto) Neut # (Auto) Lymph # (Auto) [place] # (Auto) Eos # (Auto) Baso # (Auto) APTT Sodium Potassium Chloride Carbon Dioxide Anion Gap BUN Creatinine Est GFR ( Amer) Est GFR (Non-Af Amer) POC Glucose (mg/dL) Random Glucose Uric Acid Calcium Phosphorus Magnesium Total Bilirubin AST ALT Alkaline Phosphatase Total Creatine Kinase Total Protein Albumin Globulin Albumin/Globulin Ratio Urine Color Urine Clarity Urine pH Ur Specific [place] Urine Protein Urine Glucose (UA) Urine Ketones Urine Blood Urine Nitrate Urine Bilirubin Urine Urobilinogen Ur Leukocyte Esterase Urine WBC (Auto) Urine RBC (Auto) Ur Squamous Epith Cells Urine Bacteria U Random Total Protein 4798 H Urine Creatinine 27 Urine Microalbumin 46.9 Microalb/Creat Ratio 1737 H Serum Immunofixation Not detected 01/08/18 01/08/18 01/09/18 20:59 22:06 06:41 WBC RBC Hgb Hct MCV MCH MCHC RDW Plt Count MPV Neut % (Auto) Lymph % (Auto) [place] % (Auto) Eos % (Auto) Baso % (Auto) Neut # (Auto) Lymph # (Auto) [place] # (Auto) Eos # (Auto) Baso # (Auto) APTT 80 H D Sodium 141 Potassium 4.9 Chloride 103 Carbon Dioxide 26 Anion Gap 17 BUN 56 H Creatinine 3.9 H Est GFR ( Amer) 19 Est GFR (Non-Af Amer) 16 POC Glucose (mg/dL) 141 H Random Glucose 91 Uric Acid Calcium 8.4 L Phosphorus Magnesium 2.0 Total Bilirubin 0.9 AST 282 H ALT 508 H Alkaline Phosphatase 342 H Total Creatine Kinase Total Protein 6.5 Albumin 3.3 L Globulin 3.2 Albumin/Globulin Ratio 1.0 Urine Color Urine Clarity Urine pH Ur Specific [place] Urine Protein Urine Glucose (UA) Urine Ketones Urine Blood Urine Nitrate Urine Bilirubin Urine Urobilinogen Ur Leukocyte Esterase Urine WBC (Auto) Urine RBC (Auto) Ur Squamous Epith Cells Urine Bacteria U Random Total Protein Urine Creatinine Urine Microalbumin Microalb/Creat Ratio Serum Immunofixation 01/09/18 01/09/18 01/09/18 06:41 06:41 07:14 WBC 6.4 RBC 3.55 L Hgb 10.0 L Hct 31.1 L MCV 87.6 MCH 28.3 MCHC 32.3 L RDW 16.9 H Plt Count 316 MPV 8.2 Neut % (Auto) 77.2 H Lymph % (Auto) 11.1 L [place] % (Auto) 10.6 H Eos % (Auto) 0.7 Baso % (Auto) 0.4 Neut # (Auto) 4.9 Lymph # (Auto) 0.7 L [place] # (Auto) 0.7 Eos # (Auto) 0.0 Baso # (Auto) 0.0 APTT 60 H D Sodium Potassium Chloride Carbon Dioxide Anion Gap BUN Creatinine Est GFR ( Amer) Est GFR (Non-Af Amer) POC Glucose (mg/dL) 87 Random Glucose Uric Acid Calcium Phosphorus Magnesium Total Bilirubin AST ALT Alkaline Phosphatase Total Creatine Kinase Total Protein Albumin Globulin Albumin/Globulin Ratio Urine Color Urine Clarity Urine pH Ur Specific [place] Urine Protein Urine Glucose (UA) Urine Ketones Urine Blood Urine Nitrate Urine Bilirubin Urine Urobilinogen Ur Leukocyte Esterase Urine WBC (Auto) Urine RBC (Auto) Ur Squamous Epith Cells Urine Bacteria U Random Total Protein Urine Creatinine Urine Microalbumin Microalb/Creat Ratio Serum Immunofixation 01/09/18 01/09/18 01/09/18 11:56 14:46 16:13 WBC RBC Hgb Hct MCV MCH MCHC RDW Plt Count MPV Neut % (Auto) Lymph % (Auto) [place] % (Auto) Eos % (Auto) Baso % (Auto) Neut # (Auto) Lymph # (Auto) [place] # (Auto) Eos # (Auto) Baso # (Auto) APTT Sodium Potassium Chloride Carbon Dioxide Anion Gap BUN Creatinine Est GFR ( Amer) Est GFR (Non-Af Amer) POC Glucose (mg/dL) 165 H 117 H Random Glucose Uric Acid Calcium Phosphorus Magnesium Total Bilirubin AST ALT Alkaline Phosphatase Total Creatine Kinase Total Protein Albumin Globulin Albumin/Globulin Ratio Urine Color Yellow Urine Clarity Clear Urine pH 5.0 Ur Specific [place] 1.006 Urine Protein Negative Urine Glucose (UA) Normal Urine Ketones Negative Urine Blood 1+ H Urine Nitrate Negative Urine Bilirubin Negative Urine Urobilinogen Normal Ur Leukocyte Esterase Neg Urine WBC (Auto) 1 Urine RBC (Auto) 6 H Ur Squamous Epith Cells < 1 Urine Bacteria Occ H U Random Total Protein Urine Creatinine Urine Microalbumin Microalb/Creat Ratio Serum Immunofixation 01/09/18 16:30 WBC RBC Hgb Hct MCV MCH MCHC RDW Plt Count MPV Neut % (Auto) Lymph % (Auto) [place] % (Auto) Eos % (Auto) Baso % (Auto) Neut # (Auto) Lymph # (Auto) [place] # (Auto) Eos # (Auto) Baso # (Auto) APTT Sodium Potassium Chloride Carbon Dioxide Anion Gap BUN Creatinine Est GFR ( Amer) Est GFR (Non-Af Amer) POC Glucose (mg/dL) Random Glucose Uric Acid 4.9 Calcium Phosphorus 4.6 H Magnesium Total Bilirubin AST ALT Alkaline Phosphatase Total Creatine Kinase 23 L Total Protein Albumin Globulin Albumin/Globulin Ratio Urine Color Urine Clarity Urine pH Ur Specific [place] Urine Protein Urine Glucose (UA) Urine Ketones Urine Blood Urine Nitrate Urine Bilirubin Urine Urobilinogen Ur Leukocyte Esterase Urine WBC (Auto) Urine RBC (Auto) Ur Squamous Epith Cells Urine Bacteria U Random Total Protein Urine Creatinine Urine Microalbumin Microalb/Creat Ratio Serum Immunofixation Critical Care Progress Note - Nutrition Nutrition: Nutrition Category Date Time Status Renal Diet [DIET] Diets 01/06/18 Breakfast Active Attending/Attestation - Attestation I have personally seen and examined this patient.: Yes I have fully participated in the care of the patient.: Yes I have reviewed all pertinent clinical information: Yes
[2018-01-09 16:54] LABS: URIC ACID 4.9 mg/dL (3.5-8.5)
[2018-01-09] MEDS: Heparin25000 units/250ml 1/2NS 25,000 UNITS/250 ML BAG IV PRN (22:13)
--- NOTE | 2018-01-10 03:51 | CON ---
DATE: 01/09/2018 CONSULT SERVICE: Clinical cardiac electrophysiology. REASON FOR CONSULT: Bradycardia on admission. PHYSICIAN TO PERFORM CONSULT: Travis Mi MD. PHYSICIAN REQUESTING CONSULT: Ector Dumont MD. HISTORY OF PRESENT ILLNESS: Mr. Aram Keen is a very pleasant 67-year-old male with past medical history of coronary artery disease, presented initially to [facility] with an inferior wall AZ on 11/25/2017, who underwent emergent cardiac catheterization which demonstrated an occluded RCA and LAD disease, who at that point underwent Impella insertion and ultimately underwent two-vessel CABG (COREAS to the LAD and SVG to the OM) by Dr. Cirilo Vasquez on 11/28/2017, with diabetes, severe COPD, who had a prolonged hospital course after his CABG with ventilator and respiratory issues as well as development of spontaneous right pneumothorax, Impella use until 12/06/2017, postprocedural atrial fibrillation after being discharged on Coumadin as well as oral amiodarone, LV ejection fraction initially post AZ of about 25%, which had increased to about 45% on echo noted on 12/01/2017, was ultimately discharged out of [facility] on 12/20/2017, who now [facility] 01[facility]2018 with shortness of breath and worsening renal failure. On admission, the patient was noted to be in sinus rhythm with 2:1 AV block and a narrow complex QRS. This improved over the course of the next day or so to clear Wenckebach with a narrow QRS with antegrade conduction and he is now in a normal sinus rhythm with one-to-one antegrade conduction, normal interval, and a narrow QRS with heart rates in the 70 to 90 beats per minute. Notably on admission, the patient has demonstrated worsening renal dysfunction and hyperkalemia for which he has required urgent dialysis, which is now being provided through a right femoral vein Shiley. His admission troponins have trended up and he has been seen in consult by his outpatient audio installer, Dr. Ector Dumont. Historically, the patient was initially admitted with shortness of breath, denied any lightheadedness, dizziness, or syncope. Now, he says his shortness of breath has improved now and historically denies any lightheadedness, dizziness, or syncope. He denies any palpitations. There has been no atrial arrhythmia noted on his telemetry monitoring. Repeat echocardiogram was performed which demonstrated EF of 35%, which again is a change from his post CABG echo with an EF of 50% on 12/01/2017. REVIEW OF SYSTEMS: A comprehensive 10-point review of systems was performed and notable for what was seen above. FAMILY HISTORY: Reviewed. MEDICATIONS: As an outpatient were reviewed based on the patient's [facility] records and included Coumadin as well as amiodarone, it is unclear what the patient has been taking. PHYSICAL EXAMINATION: GENERAL: The patient is alert, oriented, thin. VITAL SIGNS: The patient's blood pressure is 110-120/50-60, heart rate is 70 to 80 beats per minute and normal sinus rhythm, respiratory rate of 16. NECK: Supple. PULMONARY: Anterior lungs are clear. CHEST: Chest wall, the patient's midline incision is healing. GI: Abdomen is soft. EXTREMITIES: The patient has a right femoral vein Shiley for hemodialysis. No edema. NEURO: Grossly intact. PSYCH: Normal affect. LABORATORY DATA: On admission, the patient was noted to have signs of hypoperfusion with a lactate level of 5, creatinine of 1.9, which has subsequently increased, and an AST and ALT in the 3 to 400s. His initial troponin was 3.9, which peaked to 4.4, and has since trended downward. His beta-blockers have been discontinued. ASSESSMENT AND PLAN: In summary, Mr. Keen had a lengthy complicated stay, recent stay at [facility] after initial presentation with inferior wall myocardial infarction where he ultimately underwent two-vessel coronary artery bypass graft on 11/28/2017. He had issues with renal dysfunction during that time, but was ultimately discharged home a few weeks ago, I believe, on beta-blockers, amiodarone, and Coumadin. He now presents to [facility] with shortness of breath as well as evidence of hypoperfusion with acute renal failure, now requiring emergent dialysis. Initially, he presented with sinus rhythm and 2:1 atrioventricular block, but then quickly developed Wenckebach in an 1:1 antegrade conduction. He certainly had transient atrioventricular conduction disease, likely in the level of the atrioventricular node as he has narrow QRS. It is unclear if this is intrinsic or if this is acquired in the setting of increased medications, acute renal failure, and other factors. Certainly, he is now conducting very well in normal sinus rhythm, albeit not on any beta-blockers. At this time, I do not think he is a candidate for pacing therapy, at least in this acute setting. He is still undergoing dialysis through a temporary femoral venous sheath. Additionally, his left ventricular ejection fraction now appears to be lower than what it was post coronary artery bypass graft as he has had this presentation of hypoperfusion with elevated troponins. He has been treated by Cardiology and I will defer to them for further evaluation of any other etiology of his presentation and/or ischemic disease. From the electrophysiology perspective, I would certainly follow him off of beta-blockers right now. After his renal function improves or he becomes more stable from his renal perspective, I suggest close monitoring of his heart rate, potentially with ambulatory monitoring and/or loop recorder. Additionally, in the future, if he continues to have left ventricular dysfunction despite optimal medical therapy, he will be a candidate for a primary prevention implantable cardioverter-defibrillator, in which case a dual-chamber device can be implanted to provide adequate patient therapy, if needed. I have instructed him to follow me in my office at [facility] in [place], [place]. Thank you very much for allowing me to participate in the care of this patient. Sincerely, Travis Mi MD
[2018-01-10 06:01] LABS: ALBUMIN (PEP) 2.7 g/dL (3.8-4.8); ALPHA-1-GLOBULIN (PEP) 0.5 g/dL (0.2-0.3)
[2018-01-10 06:29] LABS: BASO % 0.4 % (0.0-2.0); EOS % 0.4 % (0.0-4.0); HEMOGLOBIN 10.2 g/dL (12.0-18.0); LYMPH # 0.6 K/uL (1.0-4.3); LYMPH % 9.5 % (20.0-40.0); MEAN CELL VOLUME 88.5 fL (80.0-94.0); MEAN CORPUSCULAR HGB CONC 32.8 g/dL (33.0-37.0); MEAN PLATELET VOLUME 8.7 fL (7.2-11.7); MONO # 0.8 K/uL (0.0-0.8); NEUT # 5.1 K/uL (1.8-7.0); NEUT % 77.7 % (50.0-75.0); NRBC % 0.1 % (0.0-2.0); PLATELET COUNT 258 K/uL (130-400); RBC 3.53 Mil/uL (4.40-5.90); RED CELL DISTRIBUTION WIDTH 16.9 % (11.5-14.5); WHITE BLOOD COUNT 6.5 K/uL (4.8-10.8)
[2018-01-10 06:52] LABS: ALBUMIN 3.3 g/dL (3.5-5.0); CALCIUM 8.5 mg/dl (8.6-10.4)
[2018-01-10] MEDS: (Novolog) Insulin Aspart, Recombinant 100 u/ml 10 ml vial SC SCH ×4 (08:00→21:51)
--- NOTE | 2018-01-10 08:00 | RAD ---
Chest x-ray single frontal view HISTORY: Fluid overload. Comparison: 01/09/2018 FINDINGS: Persistent moderate to severe venous congestion. Persistent moderate left and small to moderate right pleural effusion. Status post median sternotomy and CABG. Cardiomegaly. Degenerative changes in the spine. Impression: Overall no significant interval change.
[2018-01-10 08:06] LABS: LYMPHOCYTE 10 % (20-40); MONOCYTE 9 % (0-10); NEUTROPHIL 81 % (50-75); TOTAL CELLS COUNTED 100
[2018-01-10 08:07] LABS: ANISOCYTOSIS SLIGHT; LARGE PLATELETS PRESENT; PLATELET ESTIMATE NORMAL (NORMAL)
--- NOTE | 2018-01-10 08:42 | CP.PCM.PN ---
Subjective - Date & Time of Evaluation Date of Evaluation: 01/10/18 Time of Evaluation: 09:46 - Subjective Subjective: Cardiology Progress Note Alison Erickson, PGY1 note for Dr. Dumont Patient seen and examined at bedside. No acute events overnight. Admits to SOB but offers no other complaints at this time. Plan for cath. Objective - Vital Signs/Intake and Output Vital Signs (last 24 hours): Temp Pulse Resp BP Pulse Ox 97.8 F 76 26 H 119/73 92 L 01/10/18 04:00 01/10/18 07:51 01/10/18 07:51 01/10/18 07:52 01/10/18 07:51 Intake and Output: 01/10/18 01/10/18 06:59 18:59 Intake Total 344 Output Total 320 Balance 24 - Medications Medications: Current Medications Aspirin (Aspirin Chewable) 81 mg PO DAILY COUNT [facility]CLUDES [facility] Last Admin: 01/09/18 09:22 Dose: 81 mg Clopidogrel Bisulfate (Plavix) 75 mg PO DAILY COUNT INCLUDES [facility] Last Admin: 01/09/18 09:23 Dose: 75 mg Dextrose (Dextrose 50% Inj) 0 ml IV STAT PRN; Protocol PRN Reason: Hypoglycemia Protocol Dextrose (Glutose 15) 0 gm PO ONCE PRN; Protocol PRN Reason: Hypoglycemia Protocol Famotidine (Pepcid) 20 mg PO DAILY COUNT [facility]CLUDES [facility] Last Admin: 01/09/18 09:23 Dose: 20 mg Furosemide (Lasix) 40 mg IVP DAILY COUNT [facility]CLUD[facility] Last Admin: 01/09/18 09:22 Dose: 40 mg Glucagon (Glucagen Diagnostic Kit) 0 mg IM STAT PRN; Protocol PRN Reason: Hypoglycemia Protocol Ciprofloxacin (Cipro 400mg/200ml Dsw) 400 mg in 200 mls @ 133 mls/hr IVPB Q12H [facility]; Protocol Last Admin: 01/09/18 22:14 Dose: 133 mls/hr Heparin Sodium/Sodium Chloride (Heparin 65997 Units/250ml 1/2 Normal Saline) 25,000 units in 250 mls @ 6.941 mls/hr IV .Q24H PRN; Protocol PRN Reason: PROTOCOL Last Admin: 01/09/18 22:13 Dose: 15.56 units/kg/hr, 12 mls/hr Insulin Aspart (Novolog) 0 unit SC ACHS [facility]; Protocol Last Admin: 01/10/18 08:00 Dose: Not Given Midodrine (Proamatine) 10 mg PO TID COUNT [facility]CLUD[facility] Last Admin: 01/09/18 17:24 Dose: 10 mg Rosuvastatin Calcium (Crestor) 5 mg PO HS COUNT [facility]CLUDES [facility] Last Admin: 01/09/18 21:27 Dose: 5 mg - Labs Labs: 01/10/18 06:15 01/10/18 06:15 PT 16.0 SECONDS (9.7-12.2) H 01/05/18 20:09 INR 1.5 01/05/18 20:09 APTT 60 SECONDS (21-34) H 01/10/18 06:15 - Constitutional Appears: No Acute Distress - Head Exam Head Exam: ATRAUMATIC, NORMAL INSPECTION - Eye Exam Eye Exam: EOMI Pupil Exam: PERRL - Respiratory Exam Respiratory Exam: Clear to Ausculation Bilateral. absent: Respiratory Distress - Cardiovascular Exam Cardiovascular Exam: REGULAR RHYTHM, +S1, +S2 - GI/Abdominal Exam GI & Abdominal Exam: Normal Bowel Sounds. absent: Guarding, Rigid - Extremities Exam Extremities Exam: Normal Inspection. absent: Calf Tenderness Additional comments: B/L swelling appreciated, improved from yesterday - Neurological Exam Neurological Exam: Alert, Oriented x3 - Skin Skin Exam: Normal Color, Warm Assessment and Plan - Assessment and Plan (Free Text) Assessment: This is a 67 year old male with PMH of CAD s/p CABG 11/2017 presenting to hospital for management of acute on chronic systolic heart failure. Plan: Acute on chronic systolic heart failure -plan for cath -BNP improving -ok to restart low dose beta rosa -CXR shows findings consistent with CHF and pleural effusions -continue lasix -continue midodrine -blood pressure improved today CKD -s/p HD x2 this week Case discussed with Dr. Dumont, further recommendations per Dr. Dumont
--- NOTE | 2018-01-10 09:29 | CP.PCM.PN ---
Subjective - Date & Time of Evaluation Date of Evaluation: 01/10/18 Time of Evaluation: 09:00 - Subjective Subjective: Patient was seen and examined by me. He was alert, awake, answering questions. His breathing is much improved since admission. Denied chest pain, denied palpitations, denied headache. Denied abdominal pain The patient has had sessions of HD so far. There is a lot of protein in urine. Urine Outs were recorded as 830 mL this morning. Creatine remains elevated. Per nephrology he may or may not need a renal biopsy Objective - Vital Signs/Intake and Output Vital Signs (last 24 hours): Temp Pulse Resp BP Pulse Ox 97.5 F L 76 17 117/73 92 L 01/10/18 08:00 01/10/18 08:36 01/10/18 08:36 01/10/18 09:04 01/10/18 08:36 Intake and Output: 01/10/18 01/10/18 06:59 18:59 Intake Total 344 224 Output Total 320 Balance 24 224 - Medications Medications: Current Medications Aspirin (Aspirin Chewable) 81 mg PO DAILY [facility] Last Admin: 01/10/18 09:04 Dose: 81 mg Clopidogrel Bisulfate (Plavix) 75 mg PO DAILY [facility] Last Admin: 01/09/18 09:23 Dose: 75 mg Dextrose (Dextrose 50% Inj) 0 ml IV STAT PRN; Protocol PRN Reason: Hypoglycemia Protocol Dextrose (Glutose 15) 0 gm PO ONCE PRN; Protocol PRN Reason: Hypoglycemia Protocol Famotidine (Pepcid) 20 mg PO DAILY [facility] Last Admin: 01/10/18 09:04 Dose: 20 mg Furosemide (Lasix) 40 mg IVP DAILY [facility] Last Admin: 01/10/18 09:04 Dose: 40 mg Glucagon (Glucagen Diagnostic Kit) 0 mg IM STAT PRN; Protocol PRN Reason: Hypoglycemia Protocol Heparin Sodium/Sodium Chloride (Heparin 32216 Units/250ml 1/2 Normal Saline) 25,000 units in 250 mls @ 6.941 mls/hr IV .Q24H PRN; Protocol PRN Reason: PROTOCOL Last Admin: 01/09/18 22:13 Dose: 15.56 units/kg/hr, 12 mls/hr Ciprofloxacin (Cipro 400mg/200ml Dsw) 400 mg in 200 mls @ 133 mls/hr IVPB DAILY [facility]; Protocol Insulin Aspart (Novolog) 0 unit SC ACHS [facility]; Protocol Last Admin: 01/10/18 08:00 Dose: Not Given Midodrine (Proamatine) 10 mg PO TID [facility] Last Admin: 01/10/18 09:04 Dose: 10 mg Rosuvastatin Calcium (Crestor) 5 mg PO HS [facility] Last Admin: 01/09/18 21:27 Dose: 5 mg - Labs Labs: 01/10/18 06:15 01/10/18 06:15 PT 16.0 SECONDS (9.7-12.2) H 01/05/18 20:09 INR 1.5 01/05/18 20:09 APTT 60 SECONDS (21-34) H 01/10/18 06:15 - Constitutional Appears: No Acute Distress, Chronically Ill - Head Exam Head Exam: NORMAL INSPECTION - Eye Exam Eye Exam: EOMI, Normal appearance - ENT Exam ENT Exam: Mucous Membranes Moist - Respiratory Exam Respiratory Exam: Decreased Breath Sounds, Clear to Ausculation Bilateral - Cardiovascular Exam Cardiovascular Exam: REGULAR RHYTHM - GI/Abdominal Exam GI & Abdominal Exam: Soft. absent: Guarding, Rigid, Tenderness - Neurological Exam Neurological Exam: Alert, Awake Neuro motor strength exam: Left Upper Extremity: 5, Right Upper Extremity: 5 - Skin Skin Exam: Normal Color, Warm Assessment and Plan - Assessment and Plan (Free Text) Assessment: 1. Acute CHF on chronic CHF 01/10: Third HD yesterday afternoon, he did well. Patient reports breathing is better than before however CXRAYs still show a lot of congestion 01/09 Tolerated second HD session ok. Now on midodrine at this point. The systolic BP is still low. 01/08: Patient reports breathing is signifigantluy better than on admission. He now has had two sessions of HD The BB temporarily held for time being due to bradycardia,His BP was low also,not on ARB/ACEI EKG shows first degree heart block and bradycardia with no acute ST T wave ch selene Echocardiography shows EF 34% Impaired systolic function 2. Acute on chronic renal failure, cardiorenal syndrome 01/10: Decreased IV abx, patient urine output still low side, may or may not need renal biopsy. Fluid restriction,dialysis as per DR Powers History of noncompliance with his diabetes/chronic renal disease Avoid nephrotoxic drugs 3. NSTEMI, recent CABG, Elevated troponins. 01/10: 01/08: Remains on ASA, plavix. He recently went to [facility] for CABG and then was discharged. s/p CABG 4. Diabetes mellitus 01/08 Currently on novolog SSI 5. Elevated lactic acid and right leg s/p vein harvest for CABG. R/O Infection Had one dose Vancomycin at ER.we will do Vanco level in the morning Empiric coverage Zosyn renal dose follow blood culture,serial lactic acid follow procalcitonin
--- NOTE | 2018-01-10 09:34 | CP.PCM.PN ---
<Melonie Han - Last Filed: 01/10/18 13:20> Subjective - Date & Time of Evaluation Date of Evaluation: 01/10/18 Time of Evaluation: 07:25 - Subjective Subjective: Melonie Han DO, PGY-2: Nephrology Progress Note for Dr. Powers Patient was seen and examined at bedside. He is resting comfortably off the high flow oxygen. He denies any chest pain, nausea, vomiting, or worsening lower extremity edema. Patient reports feeling much better overall. Chart review indicates his total UO was 830, please note that this measurement includes voided and catheterized urine. Objective - Vital Signs/Intake and Output Vital Signs (last 24 hours): Temp Pulse Resp BP Pulse Ox 97.5 F L 76 17 117/73 92 L 01/10/18 08:00 01/10/18 08:36 01/10/18 08:36 01/10/18 09:04 01/10/18 08:36 Intake and Output: 01/10/18 01/10/18 06:59 18:59 Intake Total 344 224 Output Total 320 Balance 24 224 - Medications Medications: Current Medications Aspirin (Aspirin Chewable) 81 mg PO DAILY [facility] Last Admin: 01/10/18 09:04 Dose: 81 mg Clopidogrel Bisulfate (Plavix) 75 mg PO DAILY [facility] Last Admin: 01/09/18 09:23 Dose: 75 mg Dextrose (Dextrose 50% Inj) 0 ml IV STAT PRN; Protocol PRN Reason: Hypoglycemia Protocol Dextrose (Glutose 15) 0 gm PO ONCE PRN; Protocol PRN Reason: Hypoglycemia Protocol Famotidine (Pepcid) 20 mg PO DAILY [facility] Last Admin: 01/10/18 09:04 Dose: 20 mg Furosemide (Lasix) 40 mg IVP DAILY [facility] Last Admin: 01/10/18 09:04 Dose: 40 mg Glucagon (Glucagen Diagnostic Kit) 0 mg IM STAT PRN; Protocol PRN Reason: Hypoglycemia Protocol Heparin Sodium/Sodium Chloride (Heparin 02426 Units/250ml 1/2 Normal Saline) 25,000 units in 250 mls @ 6.941 mls/hr IV .Q24H PRN; Protocol PRN Reason: PROTOCOL Last Admin: 01/09/18 22:13 Dose: 15.56 units/kg/hr, 12 mls/hr Ciprofloxacin (Cipro 400mg/200ml Dsw) 400 mg in 200 mls @ 133 mls/hr IVPB DAILY [facility]; Protocol Insulin Aspart (Novolog) 0 unit SC ACHS [facility]; Protocol Last Admin: 01/10/18 08:00 Dose: Not Given Midodrine (Proamatine) 10 mg PO TID [facility] Last Admin: 01/10/18 09:04 Dose: 10 mg Rosuvastatin Calcium (Crestor) 5 mg PO HS [facility] Last Admin: 01/09/18 21:27 Dose: 5 mg - Labs Labs: 01/10/18 06:15 01/10/18 06:15 PT 16.0 SECONDS (9.7-12.2) H 01/05/18 20:09 INR 1.5 01/05/18 20:09 APTT 60 SECONDS (21-34) H 01/10/18 06:15 - Constitutional Appears: Non-toxic - Head Exam Head Exam: ATRAUMATIC, NORMOCEPHALIC - Eye Exam Eye Exam: EOMI, Normal appearance - ENT Exam ENT Exam: Mucous Membranes Moist - Neck Exam Neck Exam: Normal Inspection - Respiratory Exam Respiratory Exam: Decreased Breath Sounds (bilaterally), NORMAL BREATHING PATTERN - Cardiovascular Exam Cardiovascular Exam: RRR, +S1, +S2 - Extremities Exam Additional comments: 2/4 pitting edema - Neurological Exam Neurological Exam: Alert, Awake, Oriented x3 - Psychiatric Exam Psychiatric exam: Normal Affect, Normal Mood - Skin Skin Exam: Dry, Intact, Normal Color, Warm Assessment and Plan - Assessment and Plan (Free Text) Assessment: 67 year old male with past medical history notable for DM II, CAD, CABG (11/27/2017) that required a week or so of dialysis post-operatively, systolic HF with estimated EF of 35% CKD who presented to [facility] for worsening shortness of breath, increased edema, decreased urine output and was found to have a NSTEMI, oliguric kidney failure, and nephrotic range proteinuria. Work-up to exclude alternate source of kidney disease has been negative so far, meaning, the patient's kidney disease is likely secondary to his diabetes, CKD, and other comorbid conditions. Today, we will perform a full dialysis session. Cardiology is following and has deferred cardiac catheterization at this time given the patient's tenuous renal status. Kidney biopsy will not be able to be performed during this patient's current hospitalization given his need to remain of DAPT indefinitely (as per Cardiology). The patient urine output has made some gains as of today. We will continue to follow with you. As always, avoid nephrotoxins, dose antibiotics renally and with keeping in mind the patient's dialysis sessions. Case was reviewed and discussed at length with attending physician, Dr. Powers <Maynor Powers - Last Filed: 01/11/18 05:48> Objective - Vital Signs/Intake and Output Vital Signs (last 24 hours): Temp Pulse Resp BP Pulse Ox 97.3 F L 79 27 H 128/75 91 L 01/11/18 00:00 01/11/18 05:00 01/11/18 05:00 01/11/18 04:52 01/11/18 05:00 Intake and Output: 01/10/18 01/11/18 18:59 06:59 Intake Total 1044 682 Output Total 445 840 Balance 599 -158 - Medications Medications: Current Medications Aspirin (Aspirin Chewable) 81 mg PO DAILY [facility] Last Admin: 01/10/18 09:04 Dose: 81 mg Clopidogrel Bisulfate (Plavix) 75 mg PO DAILY [facility] Last Admin: 01/09/18 09:23 Dose: 75 mg Dextrose (Dextrose 50% Inj) 0 ml IV STAT PRN; Protocol PRN Reason: Hypoglycemia Protocol Dextrose (Glutose 15) 0 gm PO ONCE PRN; Protocol PRN Reason: Hypoglycemia Protocol Famotidine (Pepcid) 20 mg PO DAILY [facility] Last Admin: 01/10/18 09:04 Dose: 20 mg Furosemide (Lasix) 40 mg IVP BID [facility] Last Admin: 01/10/18 17:19 Dose: 40 mg Glucagon (Glucagen Diagnostic Kit) 0 mg IM STAT PRN; Protocol PRN Reason: Hypoglycemia Protocol Heparin Sodium/Sodium Chloride (Heparin 50969 Units/250ml 1/2 Normal Saline) 25,000 units in 250 mls @ 6.941 mls/hr IV .Q24H PRN; Protocol PRN Reason: PROTOCOL Last Admin: 01/10/18 21:52 Dose: 15.56 units/kg/hr, 12 mls/hr Ciprofloxacin (Cipro 400mg/200ml Dsw) 400 mg in 200 mls @ 133 mls/hr IVPB DAILY [facility]; Protocol Last Admin: 01/10/18 13:50 Dose: 133 mls/hr Insulin Aspart (Novolog) 0 unit SC ACHS [facility]; Protocol Last Admin: 01/10/18 21:51 Dose: Not Given Midodrine (Proamatine) 10 mg PO TID [facility] Last Admin: 01/10/18 17:19 Dose: 10 mg Rosuvastatin Calcium (Crestor) 5 mg PO HS [facility] Last Admin: 01/10/18 22:14 Dose: 5 mg - Labs Labs: 01/10/18 06:15 01/10/18 06:15 PT 16.0 SECONDS (9.7-12.2) H 01/05/18 20:09 INR 1.5 01/05/18 20:09 APTT 60 SECONDS (21-34) H 01/10/18 06:15 Assessment and Plan (1) Acute renal failure Status: Acute (2) Heart failure, systolic, with acute decompensation Status: Acute (3) CKD (chronic kidney disease) Status: Chronic (4) NSTEMI (non-ST elevated myocardial infarction) Status: Acute Attending/Attestation - Attestation I have personally seen and examined this patient.: Yes I have fully participated in the care of the patient.: Yes I have reviewed all pertinent clinical information, including history, physical exam and plan: Yes Notes (Text): Patient seen and examined; I agree with the resident's note as above with the following additions/edits: 67 yo M w/ htn, dm, CAD s/p CABG, CHF w/ systolic dysfunction, CKD, admitted with NSTEMI, acute hypooxemic resp failure, acute decompensated CHF and acute renal failure requiring HD; Patient's respiratory status markedly improved, remains off all supplemental O2; still with evidence of large pleural effusions bilaterally; edema improving; TRAVIS on CKD; oliguric renal failure likely due to ATN in the setting of presenting with severe hypotension/bradycardia; urine output now increasing with stable electrolytes; will HOLD HD today and increase IV lasix 40 mg to bid; Still concern for nephrotic range proteinuria; serologic workup thus far unremarkable; has significant hematuria on direct urine micro today but as well as ~10 WBC/hpf but could all be secondary to having hernandez; no overt dysmorphic RBC's or cellular casts, signficant number of coarse granular casts consistent w ith ATN; would benefit from renal biopsy but cannot hold ASA in the setting of severe CAD and recent NSTEMI; until we have an exact etiology for his proteinuric CKD, can only treat with PK blockade (once renal function stabilizes); Discussed with cardio, should hold off on cath for now as patient may be close to renal recovery; need to avoid nephrotoxic agents; Hemodynamically much more stable, will hold midodrine as this can increase afterload; Thank you for this referral, we will continue to f/u closely. Critical care time > 35 minutes.
[2018-01-10] MEDS: Ciprofloxacin 400mg/200ml D5W 400 MG/200 ML BAG IVPB SCH (13:50)
--- NOTE | 2018-01-10 15:35 | CP.CCUPN ---
<Pao Mello L - Last Filed: 01/10/18 15:35> CCU Subjective - Physician Review Subjective (Free Text): Resident Critical Care Progress Note Patient examined at bedside. Offers no complaints at this time. States he is eating and drinking well. Denies fevers, chills, headaches, dizziness, shortness of breath, chest pain, abdominal pain. Critical Care Time Spent (in minutes): 35 CCU Objective - Vital Signs / Intake & Output Vital Signs (Last 4 hours): Vital Signs Temp Pulse Resp BP Pulse Ox 01/10/18 13:07 76 27 H 129/68 92 L 01/10/18 12:51 75 23 129/77 93 L 01/10/18 12:36 75 25 H 113/59 L 93 L 01/10/18 12:21 75 22 126/79 93 L 01/10/18 12:06 75 22 114/49 L 92 L 01/10/18 12:00 97.5 F L 01/10/18 11:51 75 23 126/78 93 L 01/10/18 11:36 77 21 125/63 92 L Intake and Output (Last 8hrs): Intake & Output 01/10/18 01/10/18 01/10/18 06:59 14:59 22:59 Intake Total 296 224 Output Total 200 Balance 96 224 Intake: Intake, IV Amount 296 24 RAC 2 Port 200 Right Antecubital 96 24 Oral 200 Output: Urine 200 Urethral (Anne) 200 Other: # Bowel Movements 1 - Physical Exam Head: Positive for: Atraumatic, Normocephalic Pupils: Negative for: Non-Reactive, Pinpoint Extroacular Muscles: Positive for: EOMI Conjunctiva: Positive for: Normal Mouth: Positive for: Moist Mucous Membranes. Negative for: Dry, Drooling Nose (External): Positive for: Atraumatic. Negative for: Abrasion, Contusion, Laceration Nose (Internal): Positive for: No Active Bleeding. Negative for: Epistaxis Neck: Positive for: Normal Range of Motion, Trachea Midline Respiratory/Chest: Positive for: Good Air Exchange. Negative for: Clear to Auscultation, Respiratory Distress, Accessory Muscle Use, Wheezes, Rhonchi Cardiovascular: Positive for: Regular Rate and Rhythm, Normal S1, S2. Negative for: Murmurs Abdomen: Positive for: Normal Bowel Sounds. Negative for: Tenderness, Distention Upper Extremity: Positive for: Normal ROM. Negative for: Normal Inspection, Tenderness, Erythema Lower Extremity: Negative for: CALF TENDERNESS Neurological: Positive for: GCS=15, CN II-XII Intact, Speech Normal Skin: Positive for: Dry, Normal Color. Negative for: Pale Psychiatric: Positive for: Alert, Oriented x 3, Normal Affect, Normal Mood - Medications Active Medications: Active Medications Generic Name Dose Route Start Last Admin Trade Name Freq PRN Reason Stop Dose Admin Aspirin 81 mg 01/06/18 10:00 01/10/18 09:04 Aspirin Chewable PO 81 mg DAILY RIKI Administration Clopidogrel Bisulfate 75 mg 01/06/18 10:00 01/09/18 09:23 Plavix PO 75 mg DAILY RIKI Administration Dextrose 0 ml 01/06/18 03:37 Dextrose 50% Inj IV STAT PRN Hypoglycemia Protocol Protocol Dextrose 0 gm 01/06/18 03:37 Glutose 15 PO ONCE PRN Hypoglycemia Protocol Protocol Famotidine 20 mg 01/06/18 10:00 01/10/18 09:04 Pepcid PO 20 mg DAILY RIKI Administration Furosemide 40 mg 01/10/18 18:00 Lasix IVP BID RIKI Glucagon 0 mg 01/06/18 03:37 Glucagen Diagnostic Kit IM STAT PRN Hypoglycemia Protocol Protocol Heparin Sodium/Sodium Chloride 25,000 units in 250 mls @ 6.941 mls/hr 01/09/18 18:23 01/09/18 22:13 Heparin 26104 Units/250ml 1/2 Normal Saline IV 15.56 units/kg/hr .Q24H PRN 12 mls/hr PROTOCOL Administration Protocol 9 UNITS/KG/HR Ciprofloxacin 400 mg in 200 mls @ 133 mls/hr 01/10/18 10:00 01/10/18 13:50 Cipro 400mg/200ml Dsw IVPB 133 mls/hr DAILY RIKI Administration Protocol Insulin Aspart 0 unit 01/08/18 21:30 01/10/18 13:33 Novolog SC Not Given ACHS RKII Protocol Midodrine 10 mg 01/08/18 10:00 01/10/18 13:51 Proamatine PO 10 mg TID RIKI Administration Rosuvastatin Calcium 5 mg 01/06/18 22:00 01/09/18 21:27 Crestor PO 5 mg HS RIKI Administration - Patient Studies Lab Studies: Microbiology Studies 01/06/18 07:20 Gram Stain - Final Leg - Right Wound Culture - Final Proteus Mirabilis Klebsiella Pneumoniae Ssp Pneu Enterococcus Faecalis 01/05/18 20:48 Blood Culture - Preliminary Blood NO GROWTH AFTER 4 DAYS 01/05/18 20:18 Blood Culture - Preliminary Blood NO GROWTH AFTER 4 DAYS Lab Studies 01/10/18 01/10/18 01/10/18 Range/Units 11:57 07:37 06:15 WBC (4.8-10.8) K/uL RBC (4.40-5.90) Mil/uL Hgb (12.0-18.0) g/dL Hct (35.0-51.0) % MCV (80.0-94.0) fL MCH (27.0-31.0) pg MCHC (33.0-37.0) g/dL RDW (11.5-14.5) % Plt Count (130-400) K/uL MPV (7.2-11.7) fL Neut % (Auto) (50.0-75.0) % Lymph % (Auto) (20.0-40.0) % Wilkinson % (Auto) (0.0-10.0) % Eos % (Auto) (0.0-4.0) % Baso % (Auto) (0.0-2.0) % Neut # (Auto) (1.8-7.0) K/uL Lymph # (Auto) (1.0-4.3) K/uL Wilkinson # (Auto) (0.0-0.8) K/uL Eos # (Auto) (0.0-0.7) K/uL Baso # (Auto) (0.0-0.2) K/uL Neutrophils % (Manual) (50-75) % Lymphocytes % (Manual) (20-40) % Monocytes % (Manual) (0-10) % Platelet Estimate (NORMAL) Large Platelets Anisocytosis (manual) APTT 60 H (21-34) SECONDS Sodium (132-148) mmol/L Potassium (3.6-5.2) mmol/L Chloride (98-107) mmol/L Carbon Dioxide (22-30) mmol/L Anion Gap (10-20) BUN (9-20) mg/dL Creatinine (0.8-1.5) mg/dL Est GFR ( Amer) Est GFR (Non-Af Amer) POC Glucose (mg/dL) 153 H 90 (65-110) mg/dL Random Glucose (75-110) mg/dL Uric Acid (3.5-8.5) mg/dL Calcium (8.6-10.4) mg/dl Phosphorus (2.5-4.5) mg/dL Magnesium (1.6-2.3) mg/dL Total Bilirubin (0.2-1.3) mg/dL AST (17-59) U/L ALT (21-72) U/L Alkaline Phosphatase (38-126) U/L Total Creatine Kinase (55-170) U/L Total Protein (6.3-8.3) g/dL Albumin (3.5-5.0) g/dL Albumin (PEP) (3.8-4.8) g/dL Globulin (2.2-3.9) gm/dL Albumin/Globulin Ratio (1.0-2.1) Zvwkj-6-Wnnrdixdj (0.2-0.3) g/dL Spryr-1-Zzovzysuz (0.5-0.9) g/dL Sssy-0-Jtxxotno (0.4-0.6) g/dL Nvjp-5-Ntgffico (0.2-0.5) g/dL Gamma Globulins (0.8-1.7) g/dL Abnorm Protein Band 1 Abnorm Protein Band 2 Abnorm Protein Band 3 MARY & SPEP Interp Serum Immunofixation (Not Detected) ANCA Screen (NEGATIVE) c-ANCA Titer p-ANCA Titer Atypical p-ANCA Titer 01/10/18 01/10/18 01/09/18 Range/Units 06:15 06:15 21:15 WBC 6.5 (4.8-10.8) K/uL RBC 3.53 L (4.40-5.90) Mil/uL Hgb 10.2 L (12.0-18.0) g/dL Hct 31.2 L (35.0-51.0) % MCV 88.5 (80.0-94.0) fL MCH 29.0 (27.0-31.0) pg MCHC 32.8 L (33.0-37.0) g/dL RDW 16.9 H (11.5-14.5) % Plt Count 258 (130-400) K/uL MPV 8.7 (7.2-11.7) fL Neut % (Auto) 77.7 H (50.0-75.0) % Lymph % (Auto) 9.5 L (20.0-40.0) % Wilkinson % (Auto) 12.0 H (0.0-10.0) % Eos % (Auto) 0.4 (0.0-4.0) % Baso % (Auto) 0.4 (0.0-2.0) % Neut # (Auto) 5.1 (1.8-7.0) K/uL Lymph # (Auto) 0.6 L (1.0-4.3) K/uL Wilkinson # (Auto) 0.8 (0.0-0.8) K/uL Eos # (Auto) 0.0 (0.0-0.7) K/uL Baso # (Auto) 0.0 (0.0-0.2) K/uL Neutrophils % (Manual) 81 H (50-75) % Lymphocytes % (Manual) 10 L (20-40) % Monocytes % (Manual) 9 (0-10) % Platelet Estimate Normal (NORMAL) Large Platelets Present Anisocytosis (manual) Slight APTT (21-34) SECONDS Sodium 138 (132-148) mmol/L Potassium 4.7 (3.6-5.2) mmol/L Chloride 102 (98-107) mmol/L Carbon Dioxide 23 (22-30) mmol/L Anion Gap 17 (10-20) BUN 48 H (9-20) mg/dL Creatinine 3.8 H (0.8-1.5) mg/dL Est GFR ( Amer) 19 Est GFR (Non-Af Amer) 16 POC Glucose (mg/dL) 93 (65-110) mg/dL Random Glucose 95 (75-110) mg/dL Uric Acid (3.5-8.5) mg/dL Calcium 8.5 L (8.6-10.4) mg/dl Phosphorus 6.1 H (2.5-4.5) mg/dL Magnesium 2.0 (1.6-2.3) mg/dL Total Bilirubin 1.0 (0.2-1.3) mg/dL AST 191 H D (17-59) U/L ALT 418 H (21-72) U/L Alkaline Phosphatase 320 H (38-126) U/L Total Creatine Kinase (55-170) U/L Total Protein 6.5 (6.3-8.3) g/dL Albumin 3.3 L (3.5-5.0) g/dL Albumin (PEP) (3.8-4.8) g/dL Globulin 3.2 (2.2-3.9) gm/dL Albumin/Globulin Ratio 1.0 (1.0-2.1) Vhass-3-Dgkplirgq (0.2-0.3) g/dL Cixfk-7-Udloktazq (0.5-0.9) g/dL Xchn-8-Papxeeia (0.4-0.6) g/dL Ofhu-2-Urosydvm (0.2-0.5) g/dL Gamma Globulins (0.8-1.7) g/dL Abnorm Protein Band 1 Abnorm Protein Band 2 Abnorm Protein Band 3 MARY & SPEP Interp Serum Immunofixation (Not Detected) ANCA Screen (NEGATIVE) c-ANCA Titer p-ANCA Titer Atypical p-ANCA Titer 01/09/18 01/09/18 01/07/18 Range/Units 16:30 16:13 11:30 WBC (4.8-10.8) K/uL RBC (4.40-5.90) Mil/uL Hgb (12.0-18.0) g/dL Hct (35.0-51.0) % MCV (80.0-94.0) fL MCH (27.0-31.0) pg MCHC (33.0-37.0) g/dL RDW (11.5-14.5) % Plt Count (130-400) K/uL MPV (7.2-11.7) fL Neut % (Auto) (50.0-75.0) % Lymph % (Auto) (20.0-40.0) % Wilkinson % (Auto) (0.0-10.0) % Eos % (Auto) (0.0-4.0) % Baso % (Auto) (0.0-2.0) % Neut # (Auto) (1.8-7.0) K/uL Lymph # (Auto) (1.0-4.3) K/uL Wilkinson # (Auto) (0.0-0.8) K/uL Eos # (Auto) (0.0-0.7) K/uL Baso # (Auto) (0.0-0.2) K/uL Neutrophils % (Manual) (50-75) % Lymphocytes % (Manual) (20-40) % Monocytes % (Manual) (0-10) % Platelet Estimate (NORMAL) Large Platelets Anisocytosis (manual) APTT (21-34) SECONDS Sodium (132-148) mmol/L Potassium (3.6-5.2) mmol/L Chloride (98-107) mmol/L Carbon Dioxide (22-30) mmol/L Anion Gap (10-20) BUN (9-20) mg/dL Creatinine (0.8-1.5) mg/dL Est GFR ( Amer) Est GFR (Non-Af Amer) POC Glucose (mg/dL) 117 H (65-110) mg/dL Random Glucose (75-110) mg/dL Uric Acid 4.9 (3.5-8.5) mg/dL Calcium (8.6-10.4) mg/dl Phosphorus 4.6 H (2.5-4.5) mg/dL Magnesium (1.6-2.3) mg/dL Total Bilirubin (0.2-1.3) mg/dL AST (17-59) U/L ALT (21-72) U/L Alkaline Phosphatase (38-126) U/L Total Creatine Kinase 23 L (55-170) U/L Total Protein (6.3-8.3) g/dL Albumin (3.5-5.0) g/dL Albumin (PEP) 2.7 L (3.8-4.8) g/dL Globulin (2.2-3.9) gm/dL Albumin/Globulin Ratio (1.0-2.1) Gtgqd-9-Vpntfwnmq 0.5 H (0.2-0.3) g/dL Qrdhi-7-Rimtrtyww 0.9 (0.5-0.9) g/dL Grxm-1-Hyzyawix 0.4 (0.4-0.6) g/dL Cpko-2-Mtqepyvw 0.4 (0.2-0.5) g/dL Gamma Globulins 1.1 (0.8-1.7) g/dL Abnorm Protein Band 1 TEST NOT PERFORMED Abnorm Protein Band 2 TEST NOT PERFORMED Abnorm Protein Band 3 TEST NOT PERFORMED MARY & SPEP Interp See note Serum Immunofixation Not detected (Not Detected) ANCA Screen Negative (NEGATIVE) c-ANCA Titer TNP p-ANCA Titer TNP Atypical p-ANCA Titer TNP Laboratory Results - last 24 hr 01/07/18 01/09/18 01/09/18 11:30 16:13 16:30 WBC RBC Hgb Hct MCV MCH MCHC RDW Plt Count MPV Neut % (Auto) Lymph % (Auto) Wilkinson % (Auto) Eos % (Auto) Baso % (Auto) Neut # (Auto) Lymph # (Auto) Wilkinson # (Auto) Eos # (Auto) Baso # (Auto) Neutrophils % (Manual) Lymphocytes % (Manual) Monocytes % (Manual) Platelet Estimate Large Platelets Anisocytosis (manual) APTT Sodium Potassium Chloride Carbon Dioxide Anion Gap BUN Creatinine Est GFR ( Amer) Est GFR (Non-Af Amer) POC Glucose (mg/dL) 117 H Random Glucose Uric Acid 4.9 Calcium Phosphorus 4.6 H Magnesium Total Bilirubin AST ALT Alkaline Phosphatase Total Creatine Kinase 23 L Total Protein Albumin Albumin (PEP) 2.7 L Globulin Albumin/Globulin Ratio Nqhic-4-Brkjobilh 0.5 H Lmhaq-8-Yysuynzop 0.9 Olqg-6-Qblulgcx 0.4 Qadv-8-Aneponyt 0.4 Gamma Globulins 1.1 Abnorm Protein Band 1 TEST NOT PERFORMED Abnorm Protein Band 2 TEST NOT PERFORMED Abnorm Protein Band 3 TEST NOT PERFORMED MAYR & SPEP Interp See note Serum Immunofixation Not detected ANCA Screen Negative c-ANCA Titer TNP p-ANCA Titer TNP Atypical p-ANCA Titer TNP 01/09/18 01/10/18 01/10/18 21:15 06:15 06:15 WBC 6.5 RBC 3.53 L Hgb 10.2 L Hct 31.2 L MCV 88.5 MCH 29.0 MCHC 32.8 L RDW 16.9 H Plt Count 258 MPV 8.7 Neut % (Auto) 77.7 H Lymph % (Auto) 9.5 L Wilkinson % (Auto) 12.0 H Eos % (Auto) 0.4 Baso % (Auto) 0.4 Neut # (Auto) 5.1 Lymph # (Auto) 0.6 L Wilkinson # (Auto) 0.8 Eos # (Auto) 0.0 Baso # (Auto) 0.0 Neutrophils % (Manual) 81 H Lymphocytes % (Manual) 10 L Monocytes % (Manual) 9 Platelet Estimate Normal Large Platelets Present Anisocytosis (manual) Slight APTT Sodium 138 Potassium 4.7 Chloride 102 Carbon Dioxide 23 Anion Gap 17 BUN 48 H Creatinine 3.8 H Est GFR ( Amer) 19 Est GFR (Non-Af Amer) 16 POC Glucose (mg/dL) 93 Random Glucose 95 Uric Acid Calcium 8.5 L Phosphorus 6.1 H Magnesium 2.0 Total Bilirubin 1.0 AST 191 H D ALT 418 H Alkaline Phosphatase 320 H Total Creatine Kinase Total Protein 6.5 Albumin 3.3 L Albumin (PEP) Globulin 3.2 Albumin/Globulin Ratio 1.0 Vgwzc-2-Xtvjckmcr Sougw-2-Wfefrcpko Srra-8-Qfgpzkrg Opzi-8-Sewrxmnz Gamma Globulins Abnorm Protein Band 1 Abnorm Protein Band 2 Abnorm Protein Band 3 MARY & SPEP Interp Serum Immunofixation ANCA Screen c-ANCA Titer p-ANCA Titer Atypical p-ANCA Titer 01/10/18 01/10/18 01/10/18 06:15 07:37 11:57 WBC RBC Hgb Hct MCV MCH MCHC RDW Plt Count MPV Neut % (Auto) Lymph % (Auto) Wilkinson % (Auto) Eos % (Auto) Baso % (Auto) Neut # (Auto) Lymph # (Auto) Wilkinson # (Auto) Eos # (Auto) Baso # (Auto) Neutrophils % (Manual) Lymphocytes % (Manual) Monocytes % (Manual) Platelet Estimate Large Platelets Anisocytosis (manual) APTT 60 H Sodium Potassium Chloride Carbon Dioxide Anion Gap BUN Creatinine Est GFR ( Amer) Est GFR (Non-Af Amer) POC Glucose (mg/dL) 90 153 H Random Glucose Uric Acid Calcium Phosphorus Magnesium Total Bilirubin AST ALT Alkaline Phosphatase Total Creatine Kinase Total Protein Albumin Albumin (PEP) Globulin Albumin/Globulin Ratio Kfsjb-3-Gadsawsdk Vzqjy-4-Oqjrojjfc Utyn-0-Goxexzwr Lici-7-Qnipixay Gamma Globulins Abnorm Protein Band 1 Abnorm Protein Band 2 Abnorm Protein Band 3 MARY & SPEP Interp Serum Immunofixation ANCA Screen c-ANCA Titer p-ANCA Titer Atypical p-ANCA Titer Fingerstick Blood Sugar Results: 153 Critical Care Progress Note - Nutrition Nutrition: Nutrition Category Date Time Status Renal Diet [DIET] Diets 01/10/18 Lunch Active Assessment/Plan - Assessment and Plan (Free Text) Assessment: 67 yo M with PMH of CAD s/p CABG 11 days ago, DM, and remote hx of cocaine abuse (claims last use > 20 yrs ago), presenting to with severe shortness of breath x2-3 days, and was admitted to ICU for NSTEMI s/p recent CABG, and signs of fluid overload. He developed anuric renal failure, s/p 3 sessions of HD. Plan: Neuro: - AAOx3 - maintain normothermia Pulm: - CXR today shows bilateral pleural effusions, unchanged cardiomegaly - nasal cannula as tolerated Cardio: - stable bradycardia, rhythm regular on examination - Echo obtained, EF 35%, moderate to severely impaired systolic function, mild MR, mild TR, flattened septum - Given CAD and recent CABG, now signs of diffuse fluid overload (LE and UE with pitting edema, lung cxr with bilateral effusions) - No beta-rosa due to overnight bradycardic episodes - Continue ASA, Plavix, Statin, Heparin drip - Trops: 3.95 -> 3.84 -> 4.4 (latest); suggestive of NSTEMI; continue heparin drip - Cardio consulted, appreciate all recs GI: - Renal dialysis diet - Pepcid for GI ppx Renal: - K improved to 4.9 s/p HD - Nephro following (Dr. Powers), appreciate all recs - patient still oliguric, consider kidney biopsy as patient has nephrotic range proteinuria - Cr 1.9 on admit, 3.8 today - UDS negative Heme: - continue to monitor Hgb - heparin drip covers for DVT ppx ID: - leukocytosis resolved, afebrile - Vanco and Zosyn x1 each in ED - wound cultures show proteus mirabilis, klebsiella, e.faecalis - Cipro 400 mg IV Q12H Dispo: ICU FEN: Renal dialysis diet Access: Peripheral IV x1, R groin TLC dialysis cath Consults: Nephro, Cardio Ppx: Heparin covers for DVT, Pepcid for GI CODE: Unknown, so Full by default Seen, reviewed, and discussed with attending, Dr. Stone Mello PGY-1 - Date & Time Date: 01/10/18 Time: 08:00 <El Ritter - Last Filed: 01/10/18 17:52> CCU Objective - Vital Signs / Intake & Output Vital Signs (Last 4 hours): Vital Signs Temp Pulse Resp BP Pulse Ox 01/10/18 17:19 122/79 01/10/18 17:09 75 30 H 122/79 94 L 01/10/18 16:06 128/78 01/10/18 16:05 75 22 96 01/10/18 16:00 97.5 F L 01/10/18 15:51 74 20 128/72 98 01/10/18 15:36 75 22 122/71 96 01/10/18 15:21 74 21 127/69 97 01/10/18 15:06 76 18 129/66 97 01/10/18 14:51 75 24 129/76 96 01/10/18 14:36 77 24 136/66 96 01/10/18 14:21 76 22 139/71 95 01/10/18 14:10 79 23 131/73 94 L Intake and Output (Last 8hrs): Intake & Output 01/10/18 01/10/18 01/10/18 06:59 14:59 22:59 Intake Total 296 224 Output Total 200 45 Balance 96 179 Intake: Intake, IV Amount 296 24 RAC 2 Port 200 Right Antecubital 96 24 Oral 200 Output: Urine 200 45 Urethral (Anne) 200 45 Other: # Bowel Movements 1 - Medications Active Medications: Active Medications Generic Name Dose Route Start Last Admin Trade Name Freq PRN Reason Stop Dose Admin Aspirin 81 mg 01/06/18 10:00 01/10/18 09:04 Aspirin Chewable PO 81 mg DAILY RIKI Administration Clopidogrel Bisulfate 75 mg 01/06/18 10:00 01/09/18 09:23 Plavix PO 75 mg DAILY RIKI Administration Dextrose 0 ml 01/06/18 03:37 Dextrose 50% Inj IV STAT PRN Hypoglycemia Protocol Protocol Dextrose 0 gm 01/06/18 03:37 Glutose 15 PO ONCE PRN Hypoglycemia Protocol Protocol Famotidine 20 mg 01/06/18 10:00 01/10/18 09:04 Pepcid PO 20 mg DAILY RIKI Administration Furosemide 40 mg 01/10/18 18:00 01/10/18 17:19 Lasix IVP 40 mg BID RIKI Administration Glucagon 0 mg 01/06/18 03:37 Glucagen Diagnostic Kit IM STAT PRN Hypoglycemia Protocol Protocol Heparin Sodium/Sodium Chloride 25,000 units in 250 mls @ 6.941 mls/hr 01/09/18 18:23 01/09/18 22:13 Heparin 24298 Units/250ml 1/2 Normal Saline IV 15.56 units/kg/hr .Q24H PRN 12 mls/hr PROTOCOL Administration Protocol 9 UNITS/KG/HR Ciprofloxacin 400 mg in 200 mls @ 133 mls/hr 01/10/18 10:00 01/10/18 13:50 Cipro 400mg/200ml Dsw IVPB 133 mls/hr DAILY RIKI Administration Protocol Insulin Aspart 0 unit 01/08/18 21:30 01/10/18 17:12 Novolog SC Not Given ACHS RIKI Protocol Midodrine 10 mg 01/08/18 10:00 01/10/18 17:19 Proamatine PO 10 mg TID RIKI Administration Rosuvastatin Calcium 5 mg 01/06/18 22:00 01/09/18 21:27 Crestor PO 5 mg HS RIKI Administration - Patient Studies Lab Studies: Microbiology Studies 01/06/18 07:20 Gram Stain - Final Leg - Right Wound Culture - Final Proteus Mirabilis Klebsiella Pneumoniae Ssp Pneu Enterococcus Faecalis 01/05/18 20:48 Blood Culture - Preliminary Blood NO GROWTH AFTER 4 DAYS 01/05/18 20:18 Blood Culture - Preliminary Blood NO GROWTH AFTER 4 DAYS Lab Studies 01/10/18 01/10/18 01/10/18 Range/Units 16:06 11:57 07:37 WBC (4.8-10.8) K/uL RBC (4.40-5.90) Mil/uL Hgb (12.0-18.0) g/dL Hct (35.0-51.0) % MCV (80.0-94.0) fL MCH (27.0-31.0) pg MCHC (33.0-37.0) g/dL RDW (11.5-14.5) % Plt Count (130-400) K/uL MPV (7.2-11.7) fL Neut % (Auto) (50.0-75.0) % Lymph % (Auto) (20.0-40.0) % Wilkinson % (Auto) (0.0-10.0) % Eos % (Auto) (0.0-4.0) % Baso % (Auto) (0.0-2.0) % Neut # (Auto) (1.8-7.0) K/uL Lymph # (Auto) (1.0-4.3) K/uL Wilkinson # (Auto) (0.0-0.8) K/uL Eos # (Auto) (0.0-0.7) K/uL Baso # (Auto) (0.0-0.2) K/uL Neutrophils % (Manual) (50-75) % Lymphocytes % (Manual) (20-40) % Monocytes % (Manual) (0-10) % Platelet Estimate (NORMAL) Large Platelets Anisocytosis (manual) APTT (21-34) SECONDS Sodium (132-148) mmol/L Potassium (3.6-5.2) mmol/L Chloride (98-107) mmol/L Carbon Dioxide (22-30) mmol/L Anion Gap (10-20) BUN (9-20) mg/dL Creatinine (0.8-1.5) mg/dL Est GFR ( Amer) Est GFR (Non-Af Amer) POC Glucose (mg/dL) 147 H 153 H 90 (65-110) mg/dL Random Glucose (75-110) mg/dL Calcium (8.6-10.4) mg/dl Phosphorus (2.5-4.5) mg/dL Magnesium (1.6-2.3) mg/dL Total Bilirubin (0.2-1.3) mg/dL AST (17-59) U/L ALT (21-72) U/L Alkaline Phosphatase (38-126) U/L Total Protein (6.3-8.3) g/dL Albumin (3.5-5.0) g/dL Albumin (PEP) (3.8-4.8) g/dL Globulin (2.2-3.9) gm/dL Albumin/Globulin Ratio (1.0-2.1) Nwhdi-8-Ezmeavzmq (0.2-0.3) g/dL Dyecy-8-Emuwwlrvb (0.5-0.9) g/dL Kwho-5-Sqyqhnaw (0.4-0.6) g/dL Dqmy-7-Orqwxoqm (0.2-0.5) g/dL Gamma Globulins (0.8-1.7) g/dL Abnorm Protein Band 1 Abnorm Protein Band 2 Abnorm Protein Band 3 MARY & SPEP Interp ANCA Screen (NEGATIVE) c-ANCA Titer p-ANCA Titer Atypical p-ANCA Titer 01/10/18 01/10/18 01/10/18 Range/Units 06:15 06:15 06:15 WBC 6.5 (4.8-10.8) K/uL RBC 3.53 L (4.40-5.90) Mil/uL Hgb 10.2 L (12.0-18.0) g/dL Hct 31.2 L (35.0-51.0) % MCV 88.5 (80.0-94.0) fL MCH 29.0 (27.0-31.0) pg MCHC 32.8 L (33.0-37.0) g/dL RDW 16.9 H (11.5-14.5) % Plt Count 258 (130-400) K/uL MPV 8.7 (7.2-11.7) fL Neut % (Auto) 77.7 H (50.0-75.0) % Lymph % (Auto) 9.5 L (20.0-40.0) % Wilkinson % (Auto) 12.0 H (0.0-10.0) % Eos % (Auto) 0.4 (0.0-4.0) % Baso % (Auto) 0.4 (0.0-2.0) % Neut # (Auto) 5.1 (1.8-7.0) K/uL Lymph # (Auto) 0.6 L (1.0-4.3) K/uL Wilkinson # (Auto) 0.8 (0.0-0.8) K/uL Eos # (Auto) 0.0 (0.0-0.7) K/uL Baso # (Auto) 0.0 (0.0-0.2) K/uL Neutrophils % (Manual) 81 H (50-75) % Lymphocytes % (Manual) 10 L (20-40) % Monocytes % (Manual) 9 (0-10) % Platelet Estimate Normal (NORMAL) Large Platelets Present Anisocytosis (manual) Slight APTT 60 H (21-34) SECONDS Sodium 138 (132-148) mmol/L Potassium 4.7 (3.6-5.2) mmol/L Chloride 102 (98-107) mmol/L Carbon Dioxide 23 (22-30) mmol/L Anion Gap 17 (10-20) BUN 48 H (9-20) mg/dL Creatinine 3.8 H (0.8-1.5) mg/dL Est GFR ( Amer) 19 Est GFR (Non-Af Amer) 16 POC Glucose (mg/dL) (65-110) mg/dL Random Glucose 95 (75-110) mg/dL Calcium 8.5 L (8.6-10.4) mg/dl Phosphorus 6.1 H (2.5-4.5) mg/dL Magnesium 2.0 (1.6-2.3) mg/dL Total Bilirubin 1.0 (0.2-1.3) mg/dL AST 191 H D (17-59) U/L ALT 418 H (21-72) U/L Alkaline Phosphatase 320 H (38-126) U/L Total Protein 6.5 (6.3-8.3) g/dL Albumin 3.3 L (3.5-5.0) g/dL Albumin (PEP) (3.8-4.8) g/dL Globulin 3.2 (2.2-3.9) gm/dL Albumin/Globulin Ratio 1.0 (1.0-2.1) Zqqog-9-Lfaxqptxn (0.2-0.3) g/dL Rqvin-5-Kzphdwzdt (0.5-0.9) g/dL Qocr-4-Mrtepuex (0.4-0.6) g/dL Zipe-3-Aaaabxen (0.2-0.5) g/dL Gamma Globulins (0.8-1.7) g/dL Abnorm Protein Band 1 Abnorm Protein Band 2 Abnorm Protein Band 3 MARY & SPEP Interp ANCA Screen (NEGATIVE) c-ANCA Titer p-ANCA Titer Atypical p-ANCA Titer 01/09/18 01/07/18 Range/Units 21:15 11:30 WBC (4.8-10.8) K/uL RBC (4.40-5.90) Mil/uL Hgb (12.0-18.0) g/dL Hct (35.0-51.0) % MCV (80.0-94.0) fL MCH (27.0-31.0) pg MCHC (33.0-37.0) g/dL RDW (11.5-14.5) % Plt Count (130-400) K/uL MPV (7.2-11.7) fL Neut % (Auto) (50.0-75.0) % Lymph % (Auto) (20.0-40.0) % Wilkinson % (Auto) (0.0-10.0) % Eos % (Auto) (0.0-4.0) % Baso % (Auto) (0.0-2.0) % Neut # (Auto) (1.8-7.0) K/uL Lymph # (Auto) (1.0-4.3) K/uL Wilkinson # (Auto) (0.0-0.8) K/uL Eos # (Auto) (0.0-0.7) K/uL Baso # (Auto) (0.0-0.2) K/uL Neutrophils % (Manual) (50-75) % Lymphocytes % (Manual) (20-40) % Monocytes % (Manual) (0-10) % Platelet Estimate (NORMAL) Large Platelets Anisocytosis (manual) APTT (21-34) SECONDS Sodium (132-148) mmol/L Potassium (3.6-5.2) mmol/L Chloride (98-107) mmol/L Carbon Dioxide (22-30) mmol/L Anion Gap (10-20) BUN (9-20) mg/dL Creatinine (0.8-1.5) mg/dL Est GFR ( Amer) Est GFR (Non-Af Amer) POC Glucose (mg/dL) 93 (65-110) mg/dL Random Glucose (75-110) mg/dL Calcium (8.6-10.4) mg/dl Phosphorus (2.5-4.5) mg/dL Magnesium (1.6-2.3) mg/dL Total Bilirubin (0.2-1.3) mg/dL AST (17-59) U/L ALT (21-72) U/L Alkaline Phosphatase (38-126) U/L Total Protein (6.3-8.3) g/dL Albumin (3.5-5.0) g/dL Albumin (PEP) 2.7 L (3.8-4.8) g/dL Globulin (2.2-3.9) gm/dL Albumin/Globulin Ratio (1.0-2.1) Ffleu-0-Egzioxhqs 0.5 H (0.2-0.3) g/dL Uvhzu-8-Dqlkolhui 0.9 (0.5-0.9) g/dL Qxzm-1-Cagxwzgk 0.4 (0.4-0.6) g/dL Hthr-8-Cnzgghvm 0.4 (0.2-0.5) g/dL Gamma Globulins 1.1 (0.8-1.7) g/dL Abnorm Protein Band 1 TEST NOT PERFORMED Abnorm Protein Band 2 TEST NOT PERFORMED Abnorm Protein Band 3 TEST NOT PERFORMED MARY & SPEP Interp See note ANCA Screen Negative (NEGATIVE) c-ANCA Titer TNP p-ANCA Titer TNP Atypical p-ANCA Titer TNP Laboratory Results - last 24 hr 01/07/18 01/09/18 01/10/18 11:30 21:15 06:15 WBC RBC Hgb Hct MCV MCH MCHC RDW Plt Count MPV Neut % (Auto) Lymph % (Auto) Wilkinson % (Auto) Eos % (Auto) Baso % (Auto) Neut # (Auto) Lymph # (Auto) Wilkinson # (Auto) Eos # (Auto) Baso # (Auto) Neutrophils % (Manual) Lymphocytes % (Manual) Monocytes % (Manual) Platelet Estimate Large Platelets Anisocytosis (manual) APTT Sodium 138 Potassium 4.7 Chloride 102 Carbon Dioxide 23 Anion Gap 17 BUN 48 H Creatinine 3.8 H Est GFR ( Amer) 19 Est GFR (Non-Af Amer) 16 POC Glucose (mg/dL) 93 Random Glucose 95 Calcium 8.5 L Phosphorus 6.1 H Magnesium 2.0 Total Bilirubin 1.0 AST 191 H D ALT 418 H Alkaline Phosphatase 320 H Total Protein 6.5 Albumin 3.3 L Albumin (PEP) 2.7 L Globulin 3.2 Albumin/Globulin Ratio 1.0 Ucywk-0-Howqapplj 0.5 H Wskua-4-Holxjtlpg 0.9 Uujs-5-Cmymgqso 0.4 Fxkq-2-Fpaaqmry 0.4 Gamma Globulins 1.1 Abnorm Protein Band 1 TEST NOT PERFORMED Abnorm Protein Band 2 TEST NOT PERFORMED Abnorm Protein Band 3 TEST NOT PERFORMED MARY & SPEP Interp See note ANCA Screen Negative c-ANCA Titer TNP p-ANCA Titer TNP Atypical p-ANCA Titer TNP 01/10/18 01/10/18 01/10/18 06:15 06:15 07:37 WBC 6.5 RBC 3.53 L Hgb 10.2 L Hct 31.2 L MCV 88.5 MCH 29.0 MCHC 32.8 L RDW 16.9 H Plt Count 258 MPV 8.7 Neut % (Auto) 77.7 H Lymph % (Auto) 9.5 L Wilkinson % (Auto) 12.0 H Eos % (Auto) 0.4 Baso % (Auto) 0.4 Neut # (Auto) 5.1 Lymph # (Auto) 0.6 L Wilkinson # (Auto) 0.8 Eos # (Auto) 0.0 Baso # (Auto) 0.0 Neutrophils % (Manual) 81 H Lymphocytes % (Manual) 10 L Monocytes % (Manual) 9 Platelet Estimate Normal Large Platelets Present Anisocytosis (manual) Slight APTT 60 H Sodium Potassium Chloride Carbon Dioxide Anion Gap BUN Creatinine Est GFR ( Amer) Est GFR (Non-Af Amer) POC Glucose (mg/dL) 90 Random Glucose Calcium Phosphorus Magnesium Total Bilirubin AST ALT Alkaline Phosphatase Total Protein Albumin Albumin (PEP) Globulin Albumin/Globulin Ratio Ubadx-8-Mfhucfsrl Krrwl-2-Viuucyehs Klfy-7-Vtmpqmqh Leby-1-Jzlzrfip Gamma Globulins Abnorm Protein Band 1 Abnorm Protein Band 2 Abnorm Protein Band 3 MARY & SPEP Interp ANCA Screen c-ANCA Titer p-ANCA Titer Atypical p-ANCA Titer 01/10/18 01/10/18 11:57 16:06 WBC RBC Hgb Hct MCV MCH MCHC RDW Plt Count MPV Neut % (Auto) Lymph % (Auto) Wilkinson % (Auto) Eos % (Auto) Baso % (Auto) Neut # (Auto) Lymph # (Auto) Wilkinson # (Auto) Eos # (Auto) Baso # (Auto) Neutrophils % (Manual) Lymphocytes % (Manual) Monocytes % (Manual) Platelet Estimate Large Platelets Anisocytosis (manual) APTT Sodium Potassium Chloride Carbon Dioxide Anion Gap BUN Creatinine Est GFR ( Amer) Est GFR (Non-Af Amer) POC Glucose (mg/dL) 153 H 147 H Random Glucose Calcium Phosphorus Magnesium Total Bilirubin AST ALT Alkaline Phosphatase Total Protein Albumin Albumin (PEP) Globulin Albumin/Globulin Ratio Ypocp-3-Wuhixpvrn Pyfsj-4-Dcbnvkpbw Urzu-6-Zbpmhtgo Xirq-0-Jftywvxu Gamma Globulins Abnorm Protein Band 1 Abnorm Protein Band 2 Abnorm Protein Band 3 MARY & SPEP Interp ANCA Screen c-ANCA Titer p-ANCA Titer Atypical p-ANCA Titer Critical Care Progress Note - Nutrition Nutrition: Nutrition Category Date Time Status Renal Diet [DIET] Diets 01/10/18 Lunch Active Attending/Attestation - Attestation I have personally seen and examined this patient.: Yes I have fully participated in the care of the patient.: Yes I have reviewed all pertinent clinical information: Yes Notes (Text): 01/10/18 17:51 patient seen and examined in the intensive care unit. He has discussed with nephrology and cardiology Renal function improving Dialysis Possible cardiac cath Continue anticoagulation
[2018-01-10] MEDS: Heparin25000 units/250ml 1/2NS 25,000 UNITS/250 ML BAG IV PRN (21:52)
[2018-01-11 01:00] LABS: ANCA SCREEN NEGATIVE (NEGATIVE)
[2018-01-11 05:59] LABS: BASO % 0.2 % (0.0-2.0); EOS % 0.4 % (0.0-4.0); HEMOGLOBIN 10.8 g/dL (12.0-18.0); LYMPH # 0.8 K/uL (1.0-4.3); LYMPH % 9.4 % (20.0-40.0); MEAN CELL VOLUME 87.7 fL (80.0-94.0); MEAN CORPUSCULAR HEMOGLOBIN 28.9 pg (27.0-31.0); MEAN PLATELET VOLUME 8.3 fL (7.2-11.7); MONO # 0.9 K/uL (0.0-0.8); MONO % 11.1 % (0.0-10.0); NEUT # 6.4 K/uL (1.8-7.0); NEUT % 78.9 % (50.0-75.0); NRBC % 0.1 % (0.0-2.0); PLATELET COUNT 256 K/uL (130-400); RBC 3.73 Mil/uL (4.40-5.90); RED CELL DISTRIBUTION WIDTH 17.3 % (11.5-14.5); WHITE BLOOD COUNT 8.1 K/uL (4.8-10.8)
[2018-01-11 06:28] LABS: ALBUMIN 3.4 g/dL (3.5-5.0); CALCIUM 8.7 mg/dl (8.6-10.4)
[2018-01-11 08:06] LABS: ANISOCYTOSIS SLIGHT; LYMPHOCYTE 8 % (20-40); MONOCYTE 11 % (0-10); NEUTROPHIL 81 % (50-75); PLATELET ESTIMATE NORMAL (NORMAL); TOTAL CELLS COUNTED 100
[2018-01-11] MEDS: (Novolog) Insulin Aspart, Recombinant 100 u/ml 10 ml vial SC SCH ×4 (08:51→22:00)
--- NOTE | 2018-01-11 09:14 | CP.PCM.PN ---
Subjective - Date & Time of Evaluation Date of Evaluation: 01/11/18 Time of Evaluation: 09:11 - Subjective Subjective: Cardiology Progress Note Alison Erickson, PGY1 note for Dr. Dumont Patient seen and examined at bedside. No acute events overnight. Continues to admit to shortness of breath and denies any other complaints at this time. Plan for cath on Monday. Objective - Vital Signs/Intake and Output Vital Signs (last 24 hours): Temp Pulse Resp BP Pulse Ox 98.3 F 80 28 H 122/74 91 L 01/11/18 04:00 01/11/18 07:09 01/11/18 07:09 01/11/18 07:09 01/11/18 07:09 Intake and Output: 01/11/18 01/11/18 06:59 18:59 Intake Total 694 Output Total 920 Balance -226 - Medications Medications: Current Medications Aspirin (Aspirin Chewable) 81 mg PO DAILY [facility] Last Admin: 01/10/18 09:04 Dose: 81 mg Clopidogrel Bisulfate (Plavix) 75 mg PO DAILY [facility] Last Admin: 01/09/18 09:23 Dose: 75 mg Dextrose (Dextrose 50% Inj) 0 ml IV STAT PRN; Protocol PRN Reason: Hypoglycemia Protocol Dextrose (Glutose 15) 0 gm PO ONCE PRN; Protocol PRN Reason: Hypoglycemia Protocol Famotidine (Pepcid) 20 mg PO DAILY [facility] Last Admin: 01/10/18 09:04 Dose: 20 mg Furosemide (Lasix) 40 mg IVP BID [facility] Last Admin: 01/10/18 17:19 Dose: 40 mg Glucagon (Glucagen Diagnostic Kit) 0 mg IM STAT PRN; Protocol PRN Reason: Hypoglycemia Protocol Heparin Sodium/Sodium Chloride (Heparin 55739 Units/250ml 1/2 Normal Saline) 25,000 units in 250 mls @ 6.941 mls/hr IV .Q24H PRN; Protocol PRN Reason: PROTOCOL Last Admin: 01/10/18 21:52 Dose: 15.56 units/kg/hr, 12 mls/hr Ciprofloxacin (Cipro 400mg/200ml Dsw) 400 mg in 200 mls @ 133 mls/hr IVPB DAILY [facility]; Protocol Last Admin: 01/10/18 13:50 Dose: 133 mls/hr Insulin Aspart (Novolog) 0 unit SC ACHS [facility]; Protocol Last Admin: 01/11/18 08:51 Dose: Not Given Rosuvastatin Calcium (Crestor) 5 mg PO HS [facility] Last Admin: 01/10/18 22:14 Dose: 5 mg - Labs Labs: 01/11/18 05:53 01/11/18 05:53 PT 16.0 SECONDS (9.7-12.2) H 01/05/18 20:09 INR 1.5 01/05/18 20:09 APTT 65 SECONDS (21-34) H D 01/11/18 05:53 - Constitutional Appears: No Acute Distress - Head Exam Head Exam: ATRAUMATIC, NORMAL INSPECTION - Eye Exam Eye Exam: EOMI Pupil Exam: PERRL - Respiratory Exam Additional comments: rales appreciable B/L in lower lung bases - Cardiovascular Exam Cardiovascular Exam: REGULAR RHYTHM, +S1, +S2 - GI/Abdominal Exam GI & Abdominal Exam: Normal Bowel Sounds. absent: Guarding, Rigid - Extremities Exam Extremities Exam: absent: Calf Tenderness Additional comments: +1 swelling B/L - Neurological Exam Neurological Exam: Alert, Oriented x3 - Skin Skin Exam: Normal Color, Warm Assessment and Plan - Assessment and Plan (Free Text) Assessment: This is a 67 year old male with PMH of CAD s/p CABG 11/2017 presenting to hospital for management of acute on chronic systolic heart failure. Plan: Acute on chronic systolic heart failure -plan for cath on monday -continue plavix, asa, crestor, heparin drip -ok to restart low dose beta rosa -continue lasix -HR in the 80s overnight, BP 120s/70s -CXR shows findings consistent with CHF and pleural effusions -BNP improving CKD -s/p HD -BUN/Cr worsening today Case discussed with Dr. Dumont, further recommendations per Dr. Dumont
--- NOTE | 2018-01-11 09:27 | CP.CCUPN ---
CCU Subjective - Physician Review Subjective (Free Text): Resident Critical Care Progress Note Patient examined at bedside. Offers no complaints at this time. States he is eating and drinking well. Denies fevers, chills, headaches, dizziness, shortness of breath, chest pain, abdominal pain. Plan for HD today. 01/11/18 16:39 Critical Care Time Spent (in minutes): 35 CCU Objective - Vital Signs / Intake & Output Vital Signs (Last 4 hours): Vital Signs Pulse Resp BP Pulse Ox 01/11/18 07:09 80 28 H 122/74 91 L 01/11/18 06:09 92 H 22 100/74 89 L 01/11/18 06:00 79 22 93 L Intake and Output (Last 8hrs): Intake & Output 01/10/18 01/11/18 01/11/18 22:59 06:59 14:59 Intake Total 833 276 Output Total 715 605 Balance 118 -329 Weight 176 lb 5.917 oz Intake: IV 250 Intake, IV Amount 163 96 RAC 2 Port 67 Right Antecubital 96 96 Oral 420 180 Output: Urine 715 605 Urethral (Anne) 715 605 Emesis 0 0 Other: # Bowel Movements 0 0 - Physical Exam Head: Positive for: Atraumatic, Normocephalic Pupils: Negative for: Non-Reactive, Pinpoint Extroacular Muscles: Positive for: EOMI Conjunctiva: Positive for: Normal Mouth: Positive for: Moist Mucous Membranes. Negative for: Dry, Drooling Nose (External): Positive for: Atraumatic. Negative for: Abrasion, Contusion, Laceration Nose (Internal): Positive for: No Active Bleeding. Negative for: Epistaxis Neck: Positive for: Normal Range of Motion, Trachea Midline Respiratory/Chest: Positive for: Good Air Exchange. Negative for: Clear to Auscultation, Respiratory Distress, Accessory Muscle Use, Wheezes, Rhonchi Cardiovascular: Positive for: Regular Rate and Rhythm, Normal S1, S2. Negative for: Murmurs Abdomen: Positive for: Normal Bowel Sounds. Negative for: Tenderness, Distention Upper Extremity: Positive for: Normal ROM. Negative for: Normal Inspection, Tenderness, Erythema Lower Extremity: Negative for: CALF TENDERNESS Neurological: Positive for: GCS=15, CN II-XII Intact, Speech Normal Skin: Positive for: Dry, Normal Color. Negative for: Pale Psychiatric: Positive for: Alert, Oriented x 3, Normal Affect, Normal Mood - Medications Active Medications: Active Medications Generic Name Dose Route Start Last Admin Trade Name Freq PRN Reason Stop Dose Admin Aspirin 81 mg 01/06/18 10:00 01/10/18 09:04 Aspirin Chewable PO 81 mg DAILY [facility] Administration Clopidogrel Bisulfate 75 mg 01/06/18 10:00 01/11/18 09:12 Plavix PO Not Given DAILY [facility] Dextrose 0 ml 01/06/18 03:37 Dextrose 50% Inj IV STAT PRN Hypoglycemia Protocol Protocol Dextrose 0 gm 01/06/18 03:37 Glutose 15 PO ONCE PRN Hypoglycemia Protocol Protocol Famotidine 20 mg 01/06/18 10:00 01/10/18 09:04 Pepcid PO 20 mg DAILY [facility] Administration Furosemide 40 mg 01/10/18 18:00 01/10/18 17:19 Lasix IVP 40 mg BID [facility] Administration Glucagon 0 mg 01/06/18 03:37 Glucagen Diagnostic Kit IM STAT PRN Hypoglycemia Protocol Protocol Heparin Sodium/Sodium Chloride 25,000 units in 250 mls @ 6.941 mls/hr 01/09/18 18:23 01/10/18 21:52 Heparin 96048 Units/250ml 1/2 Normal Saline IV 15.56 units/kg/hr .Q24H PRN 12 mls/hr PROTOCOL Administration Protocol 9 UNITS/KG/HR Ciprofloxacin 400 mg in 200 mls @ 133 mls/hr 01/10/18 10:00 01/10/18 13:50 Cipro 400mg/200ml Dsw IVPB 133 mls/hr DAILY [facility] Administration Protocol Insulin Aspart 0 unit 01/08/18 21:30 01/11/18 08:51 Novolog SC Not Given ACHS [facility] Protocol Rosuvastatin Calcium 5 mg 01/06/18 22:00 01/10/18 22:14 Crestor PO 5 mg HS [facility] Administration - Patient Studies Lab Studies: Microbiology Studies 01/05/18 20:48 Blood Culture - Final Blood NO GROWTH AFTER 5 DAYS Gram Stain - Final TEST NOT PERFORMED 01/05/18 20:18 Blood Culture - Final Blood NO GROWTH AFTER 5 DAYS Gram Stain - Final TEST NOT PERFORMED 01/09/18 14:46 Urine Culture - Final Urine,Anne No Growth (<1,000 CFU/ML) 09/29/18 07:20 Gram Stain - Final Leg - Right Wound Culture - Final Proteus Mirabilis Klebsiella Pneumoniae Ssp Pneu Enterococcus Faecalis Lab Studies 01/11/18 01/11/18 01/11/18 Range/Units 05:53 05:53 05:53 WBC 8.1 (4.8-10.8) K/uL RBC 3.73 L (4.40-5.90) Mil/uL Hgb 10.8 L (12.0-18.0) g/dL Hct 32.7 L (35.0-51.0) % MCV 87.7 (80.0-94.0) fL MCH 28.9 (27.0-31.0) pg MCHC 33.0 (33.0-37.0) g/dL RDW 17.3 H (11.5-14.5) % Plt Count 256 (130-400) K/uL MPV 8.3 (7.2-11.7) fL Neut % (Auto) 78.9 H (50.0-75.0) % Lymph % (Auto) 9.4 L (20.0-40.0) % Creek % (Auto) 11.1 H (0.0-10.0) % Eos % (Auto) 0.4 (0.0-4.0) % Baso % (Auto) 0.2 (0.0-2.0) % Neut # (Auto) 6.4 (1.8-7.0) K/uL Lymph # (Auto) 0.8 L (1.0-4.3) K/uL Creek # (Auto) 0.9 H (0.0-0.8) K/uL Eos # (Auto) 0.0 (0.0-0.7) K/uL Baso # (Auto) 0.0 (0.0-0.2) K/uL Neutrophils % (Manual) 81 H (50-75) % Lymphocytes % (Manual) 8 L (20-40) % Monocytes % (Manual) 11 H (0-10) % Platelet Estimate Normal (NORMAL) Anisocytosis (manual) Slight APTT 65 H D (21-34) SECONDS Sodium 138 (132-148) mmol/L Potassium 5.0 (3.6-5.2) mmol/L Chloride 101 (98-107) mmol/L Carbon Dioxide 24 (22-30) mmol/L Anion Gap 18 (10-20) BUN 54 H (9-20) mg/dL Creatinine 5.1 H (0.8-1.5) mg/dL Est GFR ( Amer) 14 Est GFR (Non-Af Amer) 11 POC Glucose (mg/dL) (65-110) mg/dL Random Glucose 126 H (75-110) mg/dL Calcium 8.7 (8.6-10.4) mg/dl Phosphorus 7.4 H (2.5-4.5) mg/dL Magnesium 2.0 (1.6-2.3) mg/dL Total Bilirubin 0.9 (0.2-1.3) mg/dL AST 96 H D (17-59) U/L ALT 303 H D (21-72) U/L Alkaline Phosphatase 296 H (38-126) U/L Total Protein 6.6 (6.3-8.3) g/dL Albumin 3.4 L (3.5-5.0) g/dL Globulin 3.2 (2.2-3.9) gm/dL Albumin/Globulin Ratio 1.0 (1.0-2.1) ANCA Screen (NEGATIVE) c-ANCA Titer Proteinase 3 (PR3) (<1.0) AI p-ANCA Titer Atypical p-ANCA Titer Myeloperoxidase Ab (<1.0) AI 01/10/18 01/10/18 01/07/18 Range/Units 16:06 11:57 11:30 WBC (4.8-10.8) K/uL RBC (4.40-5.90) Mil/uL Hgb (12.0-18.0) g/dL Hct (35.0-51.0) % MCV (80.0-94.0) fL MCH (27.0-31.0) pg MCHC (33.0-37.0) g/dL RDW (11.5-14.5) % Plt Count (130-400) K/uL MPV (7.2-11.7) fL Neut % (Auto) (50.0-75.0) % Lymph % (Auto) (20.0-40.0) % Creek % (Auto) (0.0-10.0) % Eos % (Auto) (0.0-4.0) % Baso % (Auto) (0.0-2.0) % Neut # (Auto) (1.8-7.0) K/uL Lymph # (Auto) (1.0-4.3) K/uL Creek # (Auto) (0.0-0.8) K/uL Eos # (Auto) (0.0-0.7) K/uL Baso # (Auto) (0.0-0.2) K/uL Neutrophils % (Manual) (50-75) % Lymphocytes % (Manual) (20-40) % Monocytes % (Manual) (0-10) % Platelet Estimate (NORMAL) Anisocytosis (manual) APTT (21-34) SECONDS Sodium (132-148) mmol/L Potassium (3.6-5.2) mmol/L Chloride (98-107) mmol/L Carbon Dioxide (22-30) mmol/L Anion Gap (10-20) BUN (9-20) mg/dL Creatinine (0.8-1.5) mg/dL Est GFR ( Amer) Est GFR (Non-Af Amer) POC Glucose (mg/dL) 147 H 153 H (65-110) mg/dL Random Glucose (75-110) mg/dL Calcium (8.6-10.4) mg/dl Phosphorus (2.5-4.5) mg/dL Magnesium (1.6-2.3) mg/dL Total Bilirubin (0.2-1.3) mg/dL AST (17-59) U/L ALT (21-72) U/L Alkaline Phosphatase (38-126) U/L Total Protein (6.3-8.3) g/dL Albumin (3.5-5.0) g/dL Globulin (2.2-3.9) gm/dL Albumin/Globulin Ratio (1.0-2.1) ANCA Screen Negative (NEGATIVE) c-ANCA Titer TNP Proteinase 3 (PR3) <1.0 (<1.0) AI p-ANCA Titer TNP Atypical p-ANCA Titer TNP Myeloperoxidase Ab <1.0 (<1.0) AI Laboratory Results - last 24 hr 01/07/18 01/10/18 01/10/18 11:30 11:57 16:06 WBC RBC Hgb Hct MCV MCH MCHC RDW Plt Count MPV Neut % (Auto) Lymph % (Auto) Creek % (Auto) Eos % (Auto) Baso % (Auto) Neut # (Auto) Lymph # (Auto) Creek # (Auto) Eos # (Auto) Baso # (Auto) Neutrophils % (Manual) Lymphocytes % (Manual) Monocytes % (Manual) Platelet Estimate Anisocytosis (manual) APTT Sodium Potassium Chloride Carbon Dioxide Anion Gap BUN Creatinine Est GFR ( Amer) Est GFR (Non-Af Amer) POC Glucose (mg/dL) 153 H 147 H Random Glucose Calcium Phosphorus Magnesium Total Bilirubin AST ALT Alkaline Phosphatase Total Protein Albumin Globulin Albumin/Globulin Ratio ANCA Screen Negative c-ANCA Titer TNP Proteinase 3 (PR3) <1.0 p-ANCA Titer TNP Atypical p-ANCA Titer TNP Myeloperoxidase Ab <1.0 01/11/18 01/11/18 01/11/18 05:53 05:53 05:53 WBC 8.1 RBC 3.73 L Hgb 10.8 L Hct 32.7 L MCV 87.7 MCH 28.9 MCHC 33.0 RDW 17.3 H Plt Count 256 MPV 8.3 Neut % (Auto) 78.9 H Lymph % (Auto) 9.4 L Creek % (Auto) 11.1 H Eos % (Auto) 0.4 Baso % (Auto) 0.2 Neut # (Auto) 6.4 Lymph # (Auto) 0.8 L Creek # (Auto) 0.9 H Eos # (Auto) 0.0 Baso # (Auto) 0.0 Neutrophils % (Manual) 81 H Lymphocytes % (Manual) 8 L Monocytes % (Manual) 11 H Platelet Estimate Normal Anisocytosis (manual) Slight APTT 65 H D Sodium 138 Potassium 5.0 Chloride 101 Carbon Dioxide 24 Anion Gap 18 BUN 54 H Creatinine 5.1 H Est GFR ( Amer) 14 Est GFR (Non-Af Amer) 11 POC Glucose (mg/dL) Random Glucose 126 H Calcium 8.7 Phosphorus 7.4 H Magnesium 2.0 Total Bilirubin 0.9 AST 96 H D ALT 303 H D Alkaline Phosphatase 296 H Total Protein 6.6 Albumin 3.4 L Globulin 3.2 Albumin/Globulin Ratio 1.0 ANCA Screen c-ANCA Titer Proteinase 3 (PR3) p-ANCA Titer Atypical p-ANCA Titer Myeloperoxidase Ab Fingerstick Blood Sugar Results: 129 Review of Systems - Review of Systems All systems: reviewed and no additional remarkable complaints except (as mentioned in HPI) Critical Care Progress Note - Nutrition Nutrition: Nutrition Category Date Time Status Renal Diet [DIET] Diets 01/10/18 Lunch Active Assessment/Plan - Assessment and Plan (Free Text) Assessment: 67 yo M with PMH of CAD s/p CABG 11 days ago, DM, and remote hx of cocaine abuse (claims last use > 20 yrs ago), presenting to with severe shortness of breath x2-3 days, and was admitted to ICU for NSTEMI s/p recent CABG, and signs of fluid overload. He developed anuric renal failure, s/p 3 sessions of HD. Plan: Neuro: - AAOx3 - maintain normothermia Pulm: - 12/11 CXR shows bilateral pleural effusions, unchanged cardiomegaly - nasal cannula as tolerated Cardio: - stable bradycardia, rhythm regular on examination - Echo obtained, EF 35%, moderate to severely impaired systolic function, mild MR, mild TR, flattened septum - Given CAD and recent CABG, now signs of diffuse fluid overload (LE and UE with pitting edema, lung cxr with bilateral effusions) - Beta-rosa held due to overnight bradycardic episodes - Continue ASA, Plavix, Statin, Heparin drip - Trops: 3.95 -> 3.84 -> 4.4 (latest); suggestive of NSTEMI; continue heparin drip - Cardio consulted, appreciate all recs - Plan for cath on Monday GI: - Renal dialysis diet - Pepcid for GI ppx Renal: - K improved to 4.9 s/p HD - Nephro following (Dr. Powers), appreciate all recs - patient still oliguric, consider kidney biopsy as patient has nephrotic range proteinuria - Cr trending up - UDS negative Heme: - Hgb stable - heparin drip covers for DVT ppx ID: - leukocytosis resolved, afebrile - Vanco and Zosyn x1 each in ED - wound cultures show proteus mirabilis, klebsiella, e.faecalis - Cipro 400 mg IV Q12H Dispo: ICU, plan for cath on Monday FEN: Renal dialysis diet Access: Peripheral IV x1, R groin TLC dialysis cath Consults: Nephro, Cardio Ppx: Heparin covers for DVT, Pepcid for GI CODE: Unknown, so Full by default Seen, reviewed, and discussed with attending, Dr. Cris Mello PGY-1 - Date & Time Date: 01/11/18 Time: 09:23
[2018-01-11] MEDS: Ciprofloxacin 400mg/200ml D5W 400 MG/200 ML BAG IVPB SCH (09:37)
--- NOTE | 2018-01-11 09:55 | CP.PCM.PN ---
Subjective - Date & Time of Evaluation Date of Evaluation: 01/11/18 Time of Evaluation: 09:30 - Subjective Subjective: Patient did not have any acute concerns overnight. He denied chest pain, denied palpitations, denied abdominal pain, denied palpitations. He says his breathing is much better than when he initally came in. He asked that I call his son and give son an update. I did call and it went to voicemail. I left a message Urine outs were recorded as 1,300 for yesterday. Creatine remains elevated Objective - Vital Signs/Intake and Output Vital Signs (last 24 hours): Temp Pulse Resp BP Pulse Ox 98.3 F 81 22 115/67 94 L 01/11/18 04:00 01/11/18 09:08 01/11/18 09:08 01/11/18 09:37 01/11/18 09:08 Intake and Output: 01/11/18 01/11/18 06:59 18:59 Intake Total 694 Output Total 920 Balance -226 - Medications Medications: Current Medications Aspirin (Aspirin Chewable) 81 mg PO DAILY [facility] Last Admin: 01/11/18 09:36 Dose: 81 mg Clopidogrel Bisulfate (Plavix) 75 mg PO DAILY [facility] Last Admin: 01/11/18 09:12 Dose: Not Given Dextrose (Dextrose 50% Inj) 0 ml IV STAT PRN; Protocol PRN Reason: Hypoglycemia Protocol Dextrose (Glutose 15) 0 gm PO ONCE PRN; Protocol PRN Reason: Hypoglycemia Protocol Famotidine (Pepcid) 20 mg PO DAILY [facility] Last Admin: 01/11/18 09:37 Dose: 20 mg Furosemide (Lasix) 40 mg IVP BID [facility] Last Admin: 01/11/18 09:37 Dose: 40 mg Glucagon (Glucagen Diagnostic Kit) 0 mg IM STAT PRN; Protocol PRN Reason: Hypoglycemia Protocol Heparin Sodium/Sodium Chloride (Heparin 05694 Units/250ml 1/2 Normal Saline) 25,000 units in 250 mls @ 6.941 mls/hr IV .Q24H PRN; Protocol PRN Reason: PROTOCOL Last Admin: 01/10/18 21:52 Dose: 15.56 units/kg/hr, 12 mls/hr Ciprofloxacin (Cipro 400mg/200ml Dsw) 400 mg in 200 mls @ 133 mls/hr IVPB DAILY [facility]; Protocol Last Admin: 01/11/18 09:37 Dose: 133 mls/hr Insulin Aspart (Novolog) 0 unit SC ACHS [facility]; Protocol Last Admin: 01/11/18 08:51 Dose: Not Given Rosuvastatin Calcium (Crestor) 5 mg PO HS [facility] Last Admin: 01/10/18 22:14 Dose: 5 mg - Labs Labs: 01/11/18 05:53 01/11/18 05:53 PT 16.0 SECONDS (9.7-12.2) H 01/05/18 20:09 INR 1.5 01/05/18 20:09 APTT 65 SECONDS (21-34) H D 01/11/18 05:53 - Constitutional Appears: No Acute Distress, Chronically Ill - Head Exam Head Exam: NORMAL INSPECTION - Eye Exam Eye Exam: EOMI, Normal appearance - ENT Exam ENT Exam: Mucous Membranes Moist - Respiratory Exam Respiratory Exam: Clear to Ausculation Bilateral, NORMAL BREATHING PATTERN - Cardiovascular Exam Cardiovascular Exam: REGULAR RHYTHM - GI/Abdominal Exam GI & Abdominal Exam: Soft, Normal Bowel Sounds - Extremities Exam Extremities Exam: Pedal Edema Additional comments: Bilateral pitting edema - Neurological Exam Neurological Exam: Alert, Awake Neuro motor strength exam: Left Upper Extremity: 5, Left Lower Extremity: 5 - Psychiatric Exam Psychiatric exam: Depressed, Flat Affect - Skin Skin Exam: Pallor, Warm Assessment and Plan - Assessment and Plan (Free Text) Assessment: 1. Acute CHF on chronic CHF 01/10: Third HD yesterday afternoon, he did well. Patient reports breathing is better than before however CXRAYs still show a lot of congestion 01/09 Tolerated second HD session ok. Now on midodrine at this point. The systolic BP is still low. 01/08: Patient reports breathing is signifigantluy better than on admission. He now has had two sessions of HD The BB temporarily held for time being due to bradycardia,His BP was low also,not on ARB/ACEI EKG shows first degree heart block and bradycardia with no acute ST T wave changes Echocardiography shows EF 34% Impaired systolic function 2. Acute on chronic renal failure, cardiorenal syndrome 01/11: Urine outs 1,300 recorded, creatine remains elevated. 01/10: Decreased IV abx, patient urine output still low side, may or may not need renal biopsy. Fluid restriction,dialysis as per DR Powers History of noncompliance with his diabetes/chronic renal disease Avoid nephrotoxic drugs 3. NSTEMI, recent CABG, Elevated troponins. 01/11: Cardiology is planning for potential cardiac catherization this Monday 01/08: Remains on ASA, plavix. He recently went to [facility] for CABG and then was discharged. s/p CABG 4. Diabetes mellitus 01/08 Currently on novolog SSI 5. Elevated lactic acid and right leg s/p vein harvest for CABG. R/O Infection Had one dose Vancomycin at ER.we will do Vanco level in the morning Empiric coverage Zosyn renal dose follow blood culture,serial lactic acid follow procalcitonin
[2018-01-11] MEDS: Heparin25000 units/250ml 1/2NS 25,000 UNITS/250 ML BAG IV PRN (23:14)
--- NOTE | 2018-01-11 23:14 | CP.PCM.PN ---
Subjective - Date & Time of Evaluation Date of Evaluation: 01/11/18 Time of Evaluation: 13:00 - Subjective Subjective: Patient reports feeling well; tolerating diet; breathing improved; Objective - Vital Signs/Intake and Output Vital Signs (last 24 hours): Temp Pulse Resp BP Pulse Ox 97.9 F 80 26 H 106/64 93 L 01/11/18 20:00 01/11/18 19:21 01/11/18 19:21 01/11/18 19:21 01/11/18 19:21 Intake and Output: 01/11/18 01/12/18 18:59 06:59 Intake Total 1094 12 Output Total 900 Balance 194 12 - Medications Medications: Current Medications Aspirin (Aspirin Chewable) 81 mg PO DAILY [facility] Last Admin: 01/11/18 09:36 Dose: 81 mg Clopidogrel Bisulfate (Plavix) 75 mg PO DAILY [facility] Last Admin: 01/11/18 09:12 Dose: Not Given Dextrose (Dextrose 50% Inj) 0 ml IV STAT PRN; Protocol PRN Reason: Hypoglycemia Protocol Dextrose (Glutose 15) 0 gm PO ONCE PRN; Protocol PRN Reason: Hypoglycemia Protocol Famotidine (Pepcid) 20 mg PO DAILY [facility] Last Admin: 01/11/18 09:37 Dose: 20 mg Furosemide (Lasix) 40 mg IVP BID [facility] Last Admin: 01/11/18 19:28 Dose: Not Given Glucagon (Glucagen Diagnostic Kit) 0 mg IM STAT PRN; Protocol PRN Reason: Hypoglycemia Protocol Heparin Sodium (Porcine) (Heparin) 2,700 units IVP TTS [facility] Last Admin: 01/11/18 18:17 Dose: 2,700 units Heparin Sodium/Sodium Chloride (Heparin 31944 Units/250ml 1/2 Normal Saline) 25,000 units in 250 mls @ 6.941 mls/hr IV .Q24H PRN; Protocol PRN Reason: PROTOCOL Last Admin: 01/10/18 21:52 Dose: 15.56 units/kg/hr, 12 mls/hr Ciprofloxacin (Cipro 400mg/200ml Dsw) 400 mg in 200 mls @ 133 mls/hr IVPB DAILY [facility]; Protocol Last Admin: 01/11/18 09:37 Dose: 133 mls/hr Insulin Aspart (Novolog) 0 unit SC ACHS [facility]; Protocol Last Admin: 01/11/18 17:50 Dose: 1 units Rosuvastatin Calcium (Crestor) 5 mg PO HS [facility] Last Admin: 01/11/18 21:30 Dose: 5 mg - Labs Labs: 01/11/18 05:53 01/11/18 05:53 PT 16.0 SECONDS (9.7-12.2) H 01/05/18 20:09 INR 1.5 01/05/18 20:09 APTT 65 SECONDS (21-34) H D 01/11/18 05:53 - Constitutional Appears: Non-toxic, No Acute Distress - Eye Exam Eye Exam: Normal appearance - Respiratory Exam Respiratory Exam: Clear to Ausculation Bilateral. absent: Respiratory Distress Additional comments: decreased sounds at bases; - Cardiovascular Exam Cardiovascular Exam: RRR, +S1, +S2 - GI/Abdominal Exam GI & Abdominal Exam: Soft. absent: Distended, Tenderness - Extremities Exam Additional comments: moderate leg edema, improving; - Neurological Exam Neurological Exam: Alert, Awake - Psychiatric Exam Psychiatric exam: Normal Mood. absent: Agitated - Skin Skin Exam: Warm. absent: Cyanosis Assessment and Plan (1) Acute renal failure Assessment & Plan: TRAVIS on CKD; ATN in the setting of hypotension/bradycardia; now non-oliguric, responded well to IV lasix yesterday; however, still inadequate renal clearance with creatinine and K rising; Temp femoral HD catheter now with decreased blood flow but able to finish HD; placed 5 days ago, ideally needs to removed; cannot get tunneled line yet due to having been on plavix, but may not need it given signs of renal recovery; -HD today, 2L UF goal; -Will plan on next tomorrow and then d/c femoral cath to avoid infection; -Avoid nephrotoxic agents; -Renal biopsy (due to concern for nephrotic range proteinuria) will have to be deferred to another time as patient had recent NSTEMI and is on ASA; -Recommend to hold cardiac cath until renal function improves and stabilizes (unless considered urgent); Status: Acute (2) Heart failure, systolic, with acute decompensation Assessment & Plan: Symptomatically much improved; will continue with UF on HD; Status: Acute (3) CKD (chronic kidney disease) Assessment & Plan: Serologic workup for causes of proteinuric kidney disease thus far unremarkable; will obtain 24 hr urine for UPEP now that urine output much improved; see above regarding biopsy; Status: Chronic (4) NSTEMI (non-ST elevated myocardial infarction) Status: Acute
[2018-01-12] MEDS: (Novolog) Insulin Aspart, Recombinant 100 u/ml 10 ml vial SC SCH ×4 (08:13→22:26)
--- NOTE | 2018-01-12 08:17 | CP.PCM.PN ---
Subjective - Date & Time of Evaluation Date of Evaluation: 01/12/18 Time of Evaluation: 08:30 - Subjective Subjective: Cardiology Progress Note Alison Erickson, PGY1 note for Dr. Dumont No acute events overnight. Offers no complaints at this time. Received HD yesterday. Plan for cath on Monday. Objective - Vital Signs/Intake and Output Vital Signs (last 24 hours): Temp Pulse Resp BP Pulse Ox 97.7 F 80 26 H 106/64 93 L 01/12/18 04:00 01/11/18 19:21 01/11/18 19:21 01/11/18 19:21 01/11/18 19:21 Intake and Output: 01/12/18 01/12/18 06:59 18:59 Intake Total 12 Balance 12 - Medications Medications: Current Medications Aspirin (Aspirin Chewable) 81 mg PO DAILY [facility] Last Admin: 01/11/18 09:36 Dose: 81 mg Clopidogrel Bisulfate (Plavix) 75 mg PO DAILY [facility] Last Admin: 01/11/18 09:12 Dose: Not Given Dextrose (Dextrose 50% Inj) 0 ml IV STAT PRN; Protocol PRN Reason: Hypoglycemia Protocol Dextrose (Glutose 15) 0 gm PO ONCE PRN; Protocol PRN Reason: Hypoglycemia Protocol Famotidine (Pepcid) 20 mg PO DAILY [facility] Last Admin: 01/11/18 09:37 Dose: 20 mg Furosemide (Lasix) 40 mg IVP BID [facility] Last Admin: 01/11/18 19:28 Dose: Not Given Glucagon (Glucagen Diagnostic Kit) 0 mg IM STAT PRN; Protocol PRN Reason: Hypoglycemia Protocol Heparin Sodium (Porcine) (Heparin) 2,700 units IVP TTS [facility] Last Admin: 01/11/18 18:17 Dose: 2,700 units Heparin Sodium/Sodium Chloride (Heparin 75078 Units/250ml 1/2 Normal Saline) 25,000 units in 250 mls @ 6.941 mls/hr IV .Q24H PRN; Protocol PRN Reason: PROTOCOL Last Admin: 01/11/18 23:14 Dose: 15.56 units/kg/hr, 12 mls/hr Ciprofloxacin (Cipro 400mg/200ml Dsw) 400 mg in 200 mls @ 133 mls/hr IVPB DAILY [facility]; Protocol Last Admin: 01/11/18 09:37 Dose: 133 mls/hr Insulin Aspart (Novolog) 0 unit SC ACHS [facility]; Protocol Last Admin: 01/12/18 08:13 Dose: 1 units Rosuvastatin Calcium (Crestor) 5 mg PO HS [facility] Last Admin: 01/11/18 21:30 Dose: 5 mg - Labs Labs: 01/11/18 05:53 01/11/18 05:53 PT 16.0 SECONDS (9.7-12.2) H 01/05/18 20:09 INR 1.5 01/05/18 20:09 APTT 84 SECONDS (21-34) H D 01/12/18 06:21 - Constitutional Appears: No Acute Distress - Head Exam Head Exam: ATRAUMATIC, NORMAL INSPECTION - Eye Exam Eye Exam: EOMI Pupil Exam: PERRL - ENT Exam ENT Exam: Mucous Membranes Moist - Respiratory Exam Additional comments: rales appreciable B/L in lower lung bases, improved form yesterday - Cardiovascular Exam Cardiovascular Exam: REGULAR RHYTHM, +S1, +S2 - GI/Abdominal Exam GI & Abdominal Exam: Normal Bowel Sounds. absent: Guarding, Rigid - Neurological Exam Neurological Exam: Alert, Oriented x3 - Skin Skin Exam: Normal Color, Warm Assessment and Plan - Assessment and Plan (Free Text) Assessment: This is a 67 year old male with PMH of CAD s/p CABG 11/2017 presenting to hospital for management of acute on chronic systolic heart failure. Plan: Acute on chronic systolic heart failure -SOB is improving -plan for cath on monday -continue heparin drip -continue plavix, asa, crestor -ok to restart low dose beta rosa -continue lasix -HR in the 70s overnight, BP 110s/60s -CXR shows findings consistent with CHF and pleural effusions -BNP improving CKD -s/p HD x3. Most recent yesterday -BUN/Cr worsening Case discussed with Dr. Dumont, further recommendations per Dr. Dumont
[2018-01-12] MEDS: Ciprofloxacin 400mg/200ml D5W 400 MG/200 ML BAG IVPB SCH (09:33)
[2018-01-12 09:56] LABS: BASO % 0.6 % (0.0-2.0); EOS % 0.4 % (0.0-4.0); HEMOGLOBIN 10.5 g/dL (12.0-18.0); LYMPH # 0.5 K/uL (1.0-4.3); LYMPH % 7.4 % (20.0-40.0); MEAN CORPUSCULAR HEMOGLOBIN 28.3 pg (27.0-31.0); MEAN CORPUSCULAR HGB CONC 32.1 g/dL (33.0-37.0); MEAN PLATELET VOLUME 8.5 fL (7.2-11.7); MONO # 0.6 K/uL (0.0-0.8); MONO % 9.1 % (0.0-10.0); NEUT # 5.3 K/uL (1.8-7.0); NEUT % 82.5 % (50.0-75.0); PLATELET COUNT 222 K/uL (130-400); RBC 3.71 Mil/uL (4.40-5.90); RED CELL DISTRIBUTION WIDTH 17.1 % (11.5-14.5); WHITE BLOOD COUNT 6.4 K/uL (4.8-10.8)
[2018-01-12 10:40] LABS: ALBUMIN 3.3 g/dL (3.5-5.0); CALCIUM 8.5 mg/dl (8.6-10.4)
[2018-01-12 11:22] LABS: LYMPHOCYTE 5 % (20-40); MONOCYTE 4 % (0-10); NEUTROPHIL 91 % (50-75); PLATELET ESTIMATE NORMAL (NORMAL); TOTAL CELLS COUNTED 100
[2018-01-12 11:23] LABS: ANISOCYTOSIS SLIGHT; HYPOCHROMIC SLIGHT; POLYCHROMIC SLIGHT
--- NOTE | 2018-01-12 14:24 | CP.PCM.PN ---
Subjective - Date & Time of Evaluation Date of Evaluation: 01/12/18 Time of Evaluation: 09:20 - Subjective Subjective: Medicine Progress Note for Hospitalist Service Pt seen and examined at bedside this am. Denies any acute complaints, reports shortness of breath has improved. Denies fever, chills, chest pain, headache, n/v/d/c, abd pain, urinary complaints, or other symptoms. Reports that he has been voiding well. No acute events reported overnight. Objective - Vital Signs/Intake and Output Vital Signs (last 24 hours): Temp Pulse Resp BP Pulse Ox 97.4 F L 75 20 106/64 100 01/12/18 12:00 01/12/18 12:00 01/12/18 12:00 01/12/18 12:00 01/12/18 12:00 Intake and Output: 01/12/18 01/12/18 06:59 18:59 Intake Total 12 992 Output Total 250 Balance 12 742 - Medications Medications: Current Medications Aspirin (Aspirin Chewable) 81 mg PO DAILY [facility] Last Admin: 01/12/18 09:33 Dose: 81 mg Clopidogrel Bisulfate (Plavix) 75 mg PO DAILY [facility] Last Admin: 01/12/18 09:33 Dose: 75 mg Dextrose (Dextrose 50% Inj) 0 ml IV STAT PRN; Protocol PRN Reason: Hypoglycemia Protocol Dextrose (Glutose 15) 0 gm PO ONCE PRN; Protocol PRN Reason: Hypoglycemia Protocol Famotidine (Pepcid) 20 mg PO DAILY [facility] Last Admin: 01/12/18 09:33 Dose: 20 mg Furosemide (Lasix) 40 mg IVP BID [facility] Last Admin: 01/11/18 19:28 Dose: Not Given Glucagon (Glucagen Diagnostic Kit) 0 mg IM STAT PRN; Protocol PRN Reason: Hypoglycemia Protocol Heparin Sodium (Porcine) (Heparin) 2,700 units IVP TTS [facility] Last Admin: 01/11/18 18:17 Dose: 2,700 units Heparin Sodium/Sodium Chloride (Heparin 94613 Units/250ml 1/2 Normal Saline) 25,000 units in 250 mls @ 6.941 mls/hr IV .Q24H PRN; Protocol PRN Reason: PROTOCOL Last Admin: 01/11/18 23:14 Dose: 15.56 units/kg/hr, 12 mls/hr Ciprofloxacin (Cipro 400mg/200ml Dsw) 400 mg in 200 mls @ 133 mls/hr IVPB DAILY [facility]; Protocol Last Admin: 01/12/18 09:33 Dose: 133 mls/hr Insulin Aspart (Novolog) 0 unit SC ACHS [facility]; Protocol Last Admin: 01/12/18 12:42 Dose: Not Given Rosuvastatin Calcium (Crestor) 5 mg PO HS [facility] Last Admin: 01/11/18 21:30 Dose: 5 mg - Labs Labs: 01/12/18 09:47 01/12/18 09:47 PT 16.0 SECONDS (9.7-12.2) H 01/05/18 20:09 INR 1.5 01/05/18 20:09 APTT 84 SECONDS (21-34) H D 01/12/18 06:21 - Constitutional Appears: Non-toxic, No Acute Distress - Head Exam Head Exam: ATRAUMATIC, NORMOCEPHALIC - Eye Exam Eye Exam: EOMI, Normal appearance, PERRL - ENT Exam ENT Exam: Mucous Membranes Moist - Neck Exam Neck Exam: Full ROM, Normal Inspection. absent: Lymphadenopathy, Tenderness - Respiratory Exam Respiratory Exam: Clear to Ausculation Bilateral, NORMAL BREATHING PATTERN. absent: Rales, Rhonchi, Wheezes, Respiratory Distress - Cardiovascular Exam Cardiovascular Exam: REGULAR RHYTHM, +S1, +S2. absent: Gallop, Rubs, Murmur - GI/Abdominal Exam GI & Abdominal Exam: Soft, Normal Bowel Sounds. absent: Distended, Firm, Guarding, Rigid, Tenderness, Organomegaly, Rebound - Extremities Exam Extremities Exam: Full ROM, Normal Capillary Refill, Normal Inspection Additional comments: 2+ pitting edema b/l, improving - Back Exam Back Exam: NORMAL INSPECTION. absent: tenderness - Neurological Exam Neurological Exam: Alert, Awake, CN II-XII Intact, Oriented x3 - Psychiatric Exam Psychiatric exam: Normal Affect, Normal Mood - Skin Skin Exam: Dry, Intact, Normal Color, Warm Assessment and Plan - Assessment and Plan (Free Text) Assessment: 67M PMhx CAD w/ NSTEMI here in 11/25 and s/p CABG at [facility] within last month, DM2, admitted to ICU after c/o 3 days of shortness of breath for CHF and pulmonary edema. S/p downgrade to tele floor. Plan: [id number] CHF No acute complaints today, improving clinically, sob improved S/p hemodialysis sessions x3 while inpatient Today's I's/O's: output 452 cc in past 12 hrs, continue to monitor output EKG demonstrated 1st degree heart block and bradycardia with no acute ST-T wave changes Echo: EF 34%, Impaired systolic function Cardio consulted (Dr. Delgado), recs appreciated Lasix currently on hold [id number] Renal Failure Today's output as mentioned above, continue to trend I's/O's BUN CR 43/4.3 today, improving from yesterday Fluid restriction and dialysis as per Dr. Powers (Nephro) Pt has hx of non-compliance with DM tx/chronic renal disease Avoid nephrotoxic drugs May or may not need renal bx, f/u nephro recs S/p hemodialysis x3 since being inpatient NSTEMI, recent CABG, elevated troponins Per Cardio, potential cardiac cath for this 01/15 C/w ASA, Plavix C/w Rosuvastatin 5 mg PO hs Recently went to [facility] for CABG in past month and was discharged DM Novolog sliding scale Fingersticks achs Hypoglycemic protocol Continue to monitor Elevated Lactate + R leg s/p vein harvest for CABG, R/o infection S/p 1x dose vanco in ED Currently on Cipro 400 mg IVPB daily Blood and urine cxs demonstrated no growth Wound cx 01/06 showed Proteus mirabilis, Klebsiella pneumoniae, Strep pneumo, Enterococcus faecalis Procalcitonin elevated at 1.18 on 01/06 Diet: renal DVT ppx: Heparin GI ppx: Pepcid Dispo: for possible cardiac cath 01/15 as per Cardio Pt seen, examined with, and plan discussed with Dr. Thomason, attending. Mateo Chaidez DO PGY-1, [employer] pager #[phone]
[2018-01-12] MEDS: Heparin25000 units/250ml 1/2NS 25,000 UNITS/250 ML BAG IV PRN (18:28)
--- NOTE | 2018-01-12 23:13 | CP.PCM.PN ---
Subjective - Date & Time of Evaluation Date of Evaluation: 01/12/18 Time of Evaluation: 15:00 - Subjective Subjective: 67 yo M w/ htn, dm, CAD s/p CABG, CHF w/ systolic dysfunction, CKD, admitted with NSTEMI, acute hypooxemic resp failure, acute decompensated CHF and acute renal failure requiring HD; Reports feeling well; tolerating diet; Objective - Vital Signs/Intake and Output Vital Signs (last 24 hours): Temp Pulse Resp BP Pulse Ox 97.9 F 86 20 110/63 95 01/12/18 20:00 01/12/18 20:00 01/12/18 20:00 01/12/18 20:00 01/12/18 20:00 Intake and Output: 01/12/18 01/13/18 18:59 06:59 Intake Total 1522 Output Total 625 Balance 897 - Medications Medications: Current Medications Aspirin (Aspirin Chewable) 81 mg PO DAILY [facility] Last Admin: 01/12/18 09:33 Dose: 81 mg Clopidogrel Bisulfate (Plavix) 75 mg PO DAILY [facility] Last Admin: 01/12/18 09:33 Dose: 75 mg Dextrose (Dextrose 50% Inj) 0 ml IV STAT PRN; Protocol PRN Reason: Hypoglycemia Protocol Dextrose (Glutose 15) 0 gm PO ONCE PRN; Protocol PRN Reason: Hypoglycemia Protocol Famotidine (Pepcid) 20 mg PO DAILY [facility] Last Admin: 01/12/18 09:33 Dose: 20 mg Furosemide (Lasix) 40 mg IVP BID [facility] Last Admin: 01/11/18 19:28 Dose: Not Given Glucagon (Glucagen Diagnostic Kit) 0 mg IM STAT PRN; Protocol PRN Reason: Hypoglycemia Protocol Heparin Sodium (Porcine) (Heparin) 2,700 units IVP TTS [facility] Last Admin: 01/11/18 18:17 Dose: 2,700 units Heparin Sodium/Sodium Chloride (Heparin 65448 Units/250ml 1/2 Normal Saline) 25,000 units in 250 mls @ 6.941 mls/hr IV .Q24H PRN; Protocol PRN Reason: PROTOCOL Last Admin: 01/12/18 18:28 Dose: 15.56 units/kg/hr, 12 mls/hr Ciprofloxacin (Cipro 400mg/200ml Dsw) 400 mg in 200 mls @ 133 mls/hr IVPB DAILY [facility]; Protocol Last Admin: 01/12/18 09:33 Dose: 133 mls/hr Insulin Aspart (Novolog) 0 unit SC ACHS [facility]; Protocol Last Admin: 01/12/18 22:26 Dose: Not Given Rosuvastatin Calcium (Crestor) 5 mg PO HS [facility] Last Admin: 01/12/18 21:56 Dose: 5 mg - Labs Labs: 01/12/18 09:47 01/12/18 09:47 PT 16.0 SECONDS (9.7-12.2) H 01/05/18 20:09 INR 1.5 01/05/18 20:09 APTT 84 SECONDS (21-34) H D 01/12/18 06:21 Assessment and Plan (1) Acute renal failure Assessment & Plan: ATN in the setting of hypotension/bradycardia; now non-oliguric, responding well to diuretics; dialyzed again today (2 days in a row) with goal of removing temporary femoral cath (communicated to primary team) after HD today and monitoring over the weekend; -continue IV lasix 40 mg bid; -avoid nephrotoxic agents (discussed with cardio again, should hold off on cath in the setting of possible renal recovery) -if HD necessary, will place temp cath on Monday; Status: Acute (2) CKD (chronic kidney disease) Assessment & Plan: Proteinuric kidney disease; needs renal biopsy but will have to defer to a point in time when ASA/plavix can be held for a few days; Status: Chronic (3) Heart failure, systolic, with acute decompensation Status: Acute (4) NSTEMI (non-ST elevated myocardial infarction) Status: Acute
[2018-01-13] MEDS: (Novolog) Insulin Aspart, Recombinant 100 u/ml 10 ml vial SC SCH ×4 (08:40→22:03)
--- NOTE | 2018-01-13 09:24 | CP.PCM.PN ---
Subjective - Date & Time of Evaluation Date of Evaluation: 01/13/18 Time of Evaluation: 08:00 Objective - Vital Signs/Intake and Output Vital Signs (last 24 hours): Temp Pulse Resp BP Pulse Ox 97.5 F L 89 20 106/67 95 01/13/18 04:00 01/13/18 04:00 01/13/18 04:00 01/13/18 04:00 01/13/18 04:00 Intake and Output: 01/13/18 01/13/18 06:59 18:59 Intake Total 144 Output Total 600 Balance -456 - Medications Medications: Current Medications Aspirin (Aspirin Chewable) 81 mg PO DAILY [facility] Last Admin: 01/12/18 09:33 Dose: 81 mg Clopidogrel Bisulfate (Plavix) 75 mg PO DAILY [facility] Last Admin: 01/12/18 09:33 Dose: 75 mg Dextrose (Dextrose 50% Inj) 0 ml IV STAT PRN; Protocol PRN Reason: Hypoglycemia Protocol Dextrose (Glutose 15) 0 gm PO ONCE PRN; Protocol PRN Reason: Hypoglycemia Protocol Famotidine (Pepcid) 20 mg PO DAILY [facility] Last Admin: 01/12/18 09:33 Dose: 20 mg Furosemide (Lasix) 40 mg IVP BID [facility] Last Admin: 01/11/18 19:28 Dose: Not Given Glucagon (Glucagen Diagnostic Kit) 0 mg IM STAT PRN; Protocol PRN Reason: Hypoglycemia Protocol Heparin Sodium (Porcine) (Heparin) 2,700 units IVP TTS [facility] Last Admin: 01/11/18 18:17 Dose: 2,700 units Heparin Sodium/Sodium Chloride (Heparin 23546 Units/250ml 1/2 Normal Saline) 25,000 units in 250 mls @ 6.941 mls/hr IV .Q24H PRN; Protocol PRN Reason: PROTOCOL Last Admin: 01/12/18 18:28 Dose: 15.56 units/kg/hr, 12 mls/hr Ciprofloxacin (Cipro 400mg/200ml Dsw) 400 mg in 200 mls @ 133 mls/hr IVPB DAILY [facility]; Protocol Last Admin: 01/12/18 09:33 Dose: 133 mls/hr Insulin Aspart (Novolog) 0 unit SC ACHS [facility]; Protocol Last Admin: 01/13/18 08:40 Dose: 1 units Rosuvastatin Calcium (Crestor) 5 mg PO HS [facility] Last Admin: 01/12/18 21:56 Dose: 5 mg - Labs Labs: 01/12/18 09:47 01/12/18 09:47 PT 16.0 SECONDS (9.7-12.2) H 01/05/18 20:09 INR 1.5 01/05/18 20:09 APTT 49 SECONDS (21-34) H D 01/13/18 06:21
[2018-01-13] MEDS: Ciprofloxacin 400mg/200ml D5W 400 MG/200 ML BAG IVPB SCH (11:04)
--- NOTE | 2018-01-13 13:17 | CP.PCM.PN ---
<Ester Priest P - Last Filed: 01/13/18 13:14> Subjective - Date & Time of Evaluation Date of Evaluation: 01/13/18 Time of Evaluation: 08:00 - Subjective Subjective: PGY-1 progress note for hospitalist. Patient seen and examined at bedside. Patient laying in bed in no acute distress. States he feels good and has no complaints. Denies fever, chills, nausea, vomiting, fever, chills, chest pain, shortness of breath. Objective - Vital Signs/Intake and Output Vital Signs (last 24 hours): Temp Pulse Resp BP Pulse Ox 97.6 F 83 20 119/64 94 L 01/13/18 08:00 01/13/18 08:00 01/13/18 08:00 01/13/18 11:01 01/13/18 08:00 Intake and Output: 01/13/18 01/13/18 06:59 18:59 Intake Total 144 Output Total 600 Balance -456 - Medications Medications: Current Medications Aspirin (Aspirin Chewable) 81 mg PO DAILY [facility] Last Admin: 01/13/18 10:30 Dose: 81 mg Clopidogrel Bisulfate (Plavix) 75 mg PO DAILY [facility] Last Admin: 01/13/18 10:30 Dose: 75 mg Dextrose (Dextrose 50% Inj) 0 ml IV STAT PRN; Protocol PRN Reason: Hypoglycemia Protocol Dextrose (Glutose 15) 0 gm PO ONCE PRN; Protocol PRN Reason: Hypoglycemia Protocol Famotidine (Pepcid) 20 mg PO DAILY [facility] Last Admin: 01/13/18 10:30 Dose: 20 mg Furosemide (Lasix) 40 mg IVP BID [facility] Last Admin: 01/13/18 11:01 Dose: 40 mg Glucagon (Glucagen Diagnostic Kit) 0 mg IM STAT PRN; Protocol PRN Reason: Hypoglycemia Protocol Heparin Sodium (Porcine) (Heparin) 2,700 units IVP TTS [facility] Last Admin: 01/11/18 18:17 Dose: 2,700 units Ciprofloxacin (Cipro 400mg/200ml Dsw) 400 mg in 200 mls @ 133 mls/hr IVPB DAILY [facility]; Protocol Last Admin: 01/13/18 11:04 Dose: 133 mls/hr Insulin Aspart (Novolog) 0 unit SC ACHS [facility]; Protocol Last Admin: 01/13/18 12:34 Dose: 1 units Rosuvastatin Calcium (Crestor) 5 mg PO HS [facility] Last Admin: 01/12/18 21:56 Dose: 5 mg - Labs Labs: 01/12/18 09:47 01/12/18 09:47 PT 16.0 SECONDS (9.7-12.2) H 01/05/18 20:09 INR 1.5 01/05/18 20:09 APTT 49 SECONDS (21-34) H D 01/13/18 06:21 - Head Exam Head Exam: ATRAUMATIC, NORMOCEPHALIC - Eye Exam Eye Exam: EOMI - ENT Exam ENT Exam: Mucous Membranes Moist - Neck Exam Neck Exam: Full ROM - Respiratory Exam Respiratory Exam: Clear to Ausculation Bilateral. absent: Rales, Rhonchi, Whe ezes - Cardiovascular Exam Cardiovascular Exam: REGULAR RHYTHM, +S1, +S2 - GI/Abdominal Exam GI & Abdominal Exam: Soft, Normal Bowel Sounds. absent: Guarding, Tenderness, Rebound - Extremities Exam Extremities Exam: Pedal Edema (pitting bilaterally). absent: Tenderness - Neurological Exam Neurological Exam: Alert, Awake, Oriented x3 - Psychiatric Exam Psychiatric exam: Normal Affect, Normal Mood - Skin Skin Exam: Dry, Normal Color, Warm Assessment and Plan - Assessment and Plan (Free Text) Plan: 67M PMhx CAD w/ NSTEMI here in 11/25 and s/p CABG at [facility] within last month, DM2, admitted to ICU after c/o 3 days of shortness of breath for CHF and pulmonary edema. S/p downgrade to tele floor. Plan: [id number] CHF No acute complaints today, improving clinically, sob improved S/p hemodialysis sessions x3 while inpatient Today's I's/O's: output 452 cc in past 12 hrs, continue to monitor output EKG demonstrated 1st degree heart block and bradycardia with no acute ST-T wave changes Echo: EF 34%, Impaired systolic function Cardio consulted (Dr. Delgado), recs appreciated Lasix currently on hold [id number] Renal Failure Today's output as mentioned above, continue to trend I's/O's BUN CR 43/4.3 today, improving from yesterday Fluid restriction and dialysis as per Dr. Powers (Nephro) Pt has hx of non-compliance with DM tx/chronic renal disease Avoid nephrotoxic drugs May or may not need renal bx, f/u nephro recs S/p hemodialysis x3 since being inpatient NSTEMI, recent CABG, elevated troponins Per Cardio, potential cardiac cath for this 01/15 C/w ASA, Plavix C/w Rosuvastatin 5 mg PO hs Recently went to [facility] for CABG in past month and was discharged DM Novolog sliding scale Fingersticks achs Hypoglycemic protocol Continue to monitor Elevated Lactate + R leg s/p vein harvest for CABG, R/o infection S/p 1x dose vanco in ED Currently on Cipro 400 mg IVPB daily Blood and urine cxs demonstrated no growth Wound cx 01/06 showed Proteus mirabilis, Klebsiella pneumoniae, Strep pneumo, Enterococcus faecalis Procalcitonin elevated at 1.18 on 01/06 Diet: renal DVT ppx: Heparin GI ppx: Pepcid Dispo: for possible cardiac cath 01/15 as per Cardio <Ronal Thomason H - Last Filed: 01/13/18 13:42> Objective - Vital Signs/Intake and Output Vital Signs (last 24 hours): Temp Pulse Resp BP Pulse Ox 97.6 F 83 20 119/64 94 L 01/13/18 08:00 01/13/18 08:00 01/13/18 08:00 01/13/18 11:01 01/13/18 08:00 Intake and Output: 01/13/18 01/13/18 06:59 18:59 Intake Total 144 Output Total 600 Balance -456 - Medications Medications: Current Medications Aspirin (Aspirin Chewable) 81 mg PO DAILY [facility] Last Admin: 01/13/18 10:30 Dose: 81 mg Clopidogrel Bisulfate (Plavix) 75 mg PO DAILY [facility] Last Admin: 01/13/18 10:30 Dose: 75 mg Dextrose (Dextrose 50% Inj) 0 ml IV STAT PRN; Protocol PRN Reason: Hypoglycemia Protocol Dextrose (Glutose 15) 0 gm PO ONCE PRN; Protocol PRN Reason: Hypoglycemia Protocol Famotidine (Pepcid) 20 mg PO DAILY [facility] Last Admin: 01/13/18 10:30 Dose: 20 mg Furosemide (Lasix) 40 mg IVP BID [facility] Last Admin: 01/13/18 11:01 Dose: 40 mg Glucagon (Glucagen Diagnostic Kit) 0 mg IM STAT PRN; Protocol PRN Reason: Hypoglycemia Protocol Heparin Sodium (Porcine) (Heparin) 2,700 units IVP TTS [facility] Last Admin: 01/11/18 18:17 Dose: 2,700 units Ciprofloxacin (Cipro 400mg/200ml Dsw) 400 mg in 200 mls @ 133 mls/hr IVPB DAILY [facility]; Protocol Last Admin: 01/13/18 11:04 Dose: 133 mls/hr Insulin Aspart (Novolog) 0 unit SC ACHS [facility]; Protocol Last Admin: 01/13/18 12:34 Dose: 1 units Rosuvastatin Calcium (Crestor) 5 mg PO HS [facility] Last Admin: 01/12/18 21:56 Dose: 5 mg - Labs Labs: 01/12/18 09:47 01/12/18 09:47 PT 16.0 SECONDS (9.7-12.2) H 01/05/18 20:09 INR 1.5 01/05/18 20:09 APTT 49 SECONDS (21-34) H D 01/13/18 06:21 Attending/Attestation - Attestation I have personally seen and examined this patient.: Yes I have fully participated in the care of the patient.: Yes I have reviewed all pertinent clinical information, including history, physical exam and plan: Yes Notes (Text): Medical attending: Reviewed the above note by the resident and there are some specific information that needs to be changed. The urine outs were 1550 yesterday on 01/12 and also so far this morning of 01/13 urine out put was 1224 mL Pending AM lab work He is not in any acute distress and not in any acute, reports breathing is ok, denied chest pain, denied headache. Per nephrology patient should no longer need HD as urine output has been improving. We would like to remove the dialysis cathter, however given the heparin ggt as well as Plavix this maybe difficult. There are plans for a cardiac catherization this comming Monday Ronal Thomason
--- NOTE | 2018-01-13 16:16 | RAD ---
Date of service: 01/13/2018 HISTORY: shortness of breath, CHF follow up COMPARISON: Comparison chest 01/10/2018 FINDINGS: LUNGS: Pulmonary venous congestive changes with bilateral lower lobe alveolar-type infiltrates and bilateral effusions. PLEURA: No significant pleural effusion identified, no pneumothorax apparent. CARDIOVASCULAR: Cardiomegaly, sternotomy wires and CABG clips again noted. OSSEOUS STRUCTURES: No significant abnormalities. VISUALIZED UPPER ABDOMEN: Normal. OTHER FINDINGS: None. IMPRESSION: Pulmonary venous congestive changes with bilateral lower lobe alveolar-type infiltrates and bilateral effusions.
[2018-01-13 17:09] LABS: BASO % 0.2 % (0.0-2.0); EOS % 0.3 % (0.0-4.0); HEMOGLOBIN 10.9 g/dL (12.0-18.0); LYMPH # 0.6 K/uL (1.0-4.3); LYMPH % 10.1 % (20.0-40.0); MEAN CELL VOLUME 88.1 fL (80.0-94.0); MEAN CORPUSCULAR HEMOGLOBIN 28.3 pg (27.0-31.0); MEAN CORPUSCULAR HGB CONC 32.1 g/dL (33.0-37.0); MEAN PLATELET VOLUME 8.4 fL (7.2-11.7); MONO # 0.6 K/uL (0.0-0.8); MONO % 10.3 % (0.0-10.0); NEUT # 4.9 K/uL (1.8-7.0); NEUT % 79.1 % (50.0-75.0); NRBC % 0.1 % (0.0-2.0); RBC 3.86 Mil/uL (4.40-5.90); RED CELL DISTRIBUTION WIDTH 16.8 % (11.5-14.5); WHITE BLOOD COUNT 6.2 K/uL (4.8-10.8)
[2018-01-13 17:46] LABS: ALB/GLOB RATIO 1.1 (1.0-2.1); ALBUMIN 3.6 g/dL (3.5-5.0); CALCIUM 8.7 mg/dl (8.6-10.4)
[2018-01-13] MEDS: Heparin25000 units/250ml 1/2NS 25,000 UNITS/250 ML BAG IV PRN (18:00)
--- NOTE | 2018-01-13 22:24 | CP.PCM.PN ---
Subjective - Date & Time of Evaluation Date of Evaluation: 01/13/18 Time of Evaluation: 18:00 - Subjective Subjective: SEEN ON RENAL F/U IN COVERAGE FOR DR GARCIA SEEN IN ICU FEELS MUCH BETTER U/O IS PICKING UO WILL HOLD OFF HD AND WATCH CLOSELY Objective - Vital Signs/Intake and Output Vital Signs (last 24 hours): Temp Pulse Resp BP Pulse Ox 97.3 F L 80 20 112/58 L 96 01/13/18 20:00 01/13/18 20:00 01/13/18 20:00 01/13/18 18:16 01/13/18 20:00 Intake and Output: 01/13/18 01/14/18 18:59 06:59 Intake Total 824 Output Total 1401 Balance -577 - Medications Medications: Current Medications Aspirin (Aspirin Chewable) 81 mg PO DAILY [facility] Last Admin: 01/13/18 10:30 Dose: 81 mg Clopidogrel Bisulfate (Plavix) 75 mg PO DAILY [facility] Last Admin: 01/13/18 10:30 Dose: 75 mg Dextrose (Dextrose 50% Inj) 0 ml IV STAT PRN; Protocol PRN Reason: Hypoglycemia Protocol Dextrose (Glutose 15) 0 gm PO ONCE PRN; Protocol PRN Reason: Hypoglycemia Protocol Famotidine (Pepcid) 20 mg PO DAILY [facility] Last Admin: 01/13/18 10:30 Dose: 20 mg Finasteride (Proscar) 5 mg PO DAILY [facility] Furosemide (Lasix) 40 mg IVP BID [facility] Last Admin: 01/13/18 18:16 Dose: 40 mg Glucagon (Glucagen Diagnostic Kit) 0 mg IM STAT PRN; Protocol PRN Reason: Hypoglycemia Protocol Heparin Sodium (Porcine) (Heparin) 2,700 units IVP TTS [facility] Last Admin: 01/11/18 18:17 Dose: 2,700 units Ciprofloxacin (Cipro 400mg/200ml Dsw) 400 mg in 200 mls @ 133 mls/hr IVPB DAILY [facility]; Protocol Last Admin: 01/13/18 11:04 Dose: 133 mls/hr Heparin Sodium/Sodium Chloride (Heparin 10260 Units/250ml 1/2 Normal Saline) 25,000 units in 250 mls @ 8 mls/hr IV .Q24H PRN; Protocol PRN Reason: PROTOCOL Last Admin: 01/13/18 18:00 Dose: 15.56 units/kg/hr, 12.448 mls/hr Insulin Aspart (Novolog) 0 unit SC ACHS [facility]; Protocol Last Admin: 01/13/18 22:03 Dose: 2 units Rosuvastatin Calcium (Crestor) 5 mg PO HS [facility] Last Admin: 01/13/18 22:03 Dose: 5 mg Tamsulosin HCl (Flomax) 0.4 mg PO DAILY [facility] - Labs Labs: 01/13/18 17:02 01/13/18 17:02 PT 16.0 SECONDS (9.7-12.2) H 01/05/18 20:09 INR 1.5 01/05/18 20:09 APTT 49 SECONDS (21-34) H D 01/13/18 06:21 Assessment and Plan - Assessment and Plan (Free Text) Assessment: Assessment & Plan: ATN in the setting of hypotension/bradycardia; now non-oliguric, responding well to diuretics; dialyzed again today (2 days in a row) with goal of removing temporary femoral cath (communicated to primary team) after HD today and mo nitoring over the weekend; -continue IV lasix 40 mg bid; -avoid nephrotoxic agents (discussed with cardio again, should hold off on cath in the setting of possible renal recovery) -if HD necessary, will place temp cath on Monday; Status: Acute (2) CKD (chronic kidney disease) Assessment & Plan: Proteinuric kidney disease; needs renal biopsy but will have to defer to a point in time when ASA/plavix can be held for a few days; Status: Chronic (3) Heart failure, systolic, with acute decompensation Status: Acute (4) NSTEMI (non-ST elevated myocardial infarction) Status: Acute
[2018-01-14 06:42] LABS: BASO % 0.2 % (0.0-2.0); EOS % 0.7 % (0.0-4.0); HEMOGLOBIN 10.3 g/dL (12.0-18.0); LYMPH # 0.8 K/uL (1.0-4.3); LYMPH % 11.5 % (20.0-40.0); MEAN CELL VOLUME 87.3 fL (80.0-94.0); MEAN CORPUSCULAR HEMOGLOBIN 27.8 pg (27.0-31.0); MEAN CORPUSCULAR HGB CONC 31.8 g/dL (33.0-37.0); MEAN PLATELET VOLUME 7.8 fL (7.2-11.7); MONO # 0.7 K/uL (0.0-0.8); MONO % 9.9 % (0.0-10.0); NEUT # 5.5 K/uL (1.8-7.0); NEUT % 77.7 % (50.0-75.0); RBC 3.72 Mil/uL (4.40-5.90); RED CELL DISTRIBUTION WIDTH 16.8 % (11.5-14.5); WHITE BLOOD COUNT 7.1 K/uL (4.8-10.8)
[2018-01-14 06:58] LABS: ALBUMIN 3.3 g/dL (3.5-5.0); CALCIUM 8.8 mg/dl (8.6-10.4)
[2018-01-14] MEDS: (Novolog) Insulin Aspart, Recombinant 100 u/ml 10 ml vial SC SCH ×4 (08:15→22:10)
[2018-01-14] MEDS: Ciprofloxacin 400mg/200ml D5W 400 MG/200 ML BAG IVPB SCH (09:08)
[2018-01-14] MEDS: Heparin25000 units/250ml 1/2NS 25,000 UNITS/250 ML BAG IV PRN (15:21)
--- NOTE | 2018-01-14 15:40 | CP.PCM.PN ---
Subjective - Date & Time of Evaluation Date of Evaluation: 01/14/18 Time of Evaluation: 13:00 - Subjective Subjective: Patient ambulated with assistance earlier this morning. With assistance he did rather well. He was not in any acute distress overnight and this morning. The femoral dialysis line was removed per wishes of nephrology The urine output was recorded as 3500, creatine 4.6 Patient is pending possible cardiac catherization tommorow. NPO after midnight. Objective - Vital Signs/Intake and Output Vital Signs (last 24 hours): Temp Pulse Resp BP Pulse Ox 98.5 F 84 22 113/66 97 01/14/18 05:00 01/14/18 11:26 01/14/18 05:00 01/14/18 12:46 01/14/18 11:26 Intake and Output: 01/14/18 01/14/18 06:59 18:59 Intake Total 400 837.5 Output Total 2100 Balance -1700 837.5 - Medications Medications: Current Medications Aspirin (Aspirin Chewable) 81 mg PO DAILY [facility] Last Admin: 01/14/18 09:08 Dose: 81 mg Clopidogrel Bisulfate (Plavix) 75 mg PO DAILY [facility] Last Admin: 01/14/18 09:08 Dose: 75 mg Dextrose (Dextrose 50% Inj) 0 ml IV STAT PRN; Protocol PRN Reason: Hypoglycemia Protocol Dextrose (Glutose 15) 0 gm PO ONCE PRN; Protocol PRN Reason: Hypoglycemia Protocol Famotidine (Pepcid) 20 mg PO DAILY [facility] Last Admin: 01/14/18 09:07 Dose: 20 mg Finasteride (Proscar) 5 mg PO DAILY [facility] Last Admin: 01/14/18 09:07 Dose: 5 mg Furosemide (Lasix) 40 mg IVP BID [facility] Last Admin: 01/14/18 12:46 Dose: 40 mg Glucagon (Glucagen Diagnostic Kit) 0 mg IM STAT PRN; Protocol PRN Reason: Hypoglycemia Protocol Heparin Sodium (Porcine) (Heparin) 2,700 units IVP TTS [facility] Last Admin: 01/11/18 18:17 Dose: 2,700 units Heparin Sodium/Sodium Chloride (Heparin 34606 Units/250ml 1/2 Normal Saline) 25,000 units in 250 mls @ 8 mls/hr IV .Q24H PRN; Protocol PRN Reason: PROTOCOL Last Admin: 01/14/18 15:21 Dose: 15.56 units/kg/hr, 12.448 mls/hr Insulin Aspart (Novolog) 0 unit SC ACHS [facility]; Protocol Last Admin: 01/14/18 12:45 Dose: 1 units Rosuvastatin Calcium (Crestor) 5 mg PO HS [facility] Last Admin: 01/13/18 22:03 Dose: 5 mg Tamsulosin HCl (Flomax) 0.4 mg PO DAILY [facility] Last Admin: 01/14/18 09:07 Dose: 0.4 mg - Labs Labs: 01/14/18 06:35 01/14/18 06:35 PT 16.0 SECONDS (9.7-12.2) H 01/05/18 20:09 INR 1.5 01/05/18 20:09 APTT 58 SECONDS (21-34) H D 01/14/18 06:35 - Constitutional Appears: No Acute Distress, Chronically Ill - Head Exam Head Exam: NORMAL INSPECTION, NORMOCEPHALIC - Eye Exam Eye Exam: EOMI, Normal appearance - ENT Exam ENT Exam: Mucous Membranes Moist - Respiratory Exam Respiratory Exam: Clear to Ausculation Bilateral, NORMAL BREATHING PATTERN - Cardiovascular Exam Cardiovascular Exam: REGULAR RHYTHM - GI/Abdominal Exam GI & Abdominal Exam: Soft, Normal Bowel Sounds - Extremities Exam Extremities Exam: Pedal Edema Additional comments: Bilateral pitting edema - Neurological Exam Neurological Exam: Alert, Awake, Oriented x3 Neuro motor strength exam: Left Upper Extremity: 5, Right Upper Extremity: 5, Left Lower Extremity: 5, Right Lower Extremity: 5 - Skin Skin Exam: Normal Color, Warm Assessment and Plan - Assessment and Plan (Free Text) Assessment: Plan: 67M PMhx CAD w/ NSTEMI here in 11/25 and s/p CABG at [place] within last month, DM2, admitted to ICU after c/o 3 days of shortness of breath for CHF and pulmonary edema. S/p downgrade to tele floor. Plan: [id number] CHF 01/14: Stable now, breathing is improved. The patient No acute complaints today, improving clinically, sob improved EKG demonstrated 1st degree heart block and bradycardia with no acute ST-T wave changes Echo: EF 34%, Impaired systolic function [id number] Renal Failure 01/14: Creatine remains elevated, the urine output 3500 as of this morning. Creatine remains elevated The femoral line was removed last night. No bleeding from site. Fluid restriction and dialysis as per Dr. Powers (Nephro) Pt has hx of non-compliance with DM tx/chronic renal disease Avoid nephrotoxic drugs NSTEMI, recent CABG, elevated troponins 01/14: NPO after midnight. Patient is made aware of this. He has been on Plavix and Heparin ggt. Per Cardio, potential cardiac cath for this Mon 01/15 C/w ASA, Plavix C/w Rosuvastatin 5 mg PO hs Recently went to [place] for CABG in past month and was discharged DM Novolog sliding scale Fingersticks achs Hypoglycemic protocol Continue to monitor Elevated Lactate + R leg s/p vein harvest for CABG, R/o infection S/p 1x dose vanco in ED Currently on Cipro 400 mg IVPB daily Blood and urine cxs demonstrated no growth Wound cx 01/06 showed Proteus mirabilis, Klebsiella pneumoniae, Strep pneumo, Enterococcus faecalis Procalcitonin elevated at 1.18 on 01/06 DVT ppx: Heparin GI ppx: Pepcid
[2018-01-15 07:03] LABS: BASO % 0.2 % (0.0-2.0); EOS % 0.6 % (0.0-4.0); HEMOGLOBIN 10.1 g/dL (12.0-18.0); LYMPH # 0.8 K/uL (1.0-4.3); LYMPH % 11.8 % (20.0-40.0); MEAN CELL VOLUME 87.4 fL (80.0-94.0); MEAN CORPUSCULAR HEMOGLOBIN 28.6 pg (27.0-31.0); MEAN CORPUSCULAR HGB CONC 32.7 g/dL (33.0-37.0); MEAN PLATELET VOLUME 8.5 fL (7.2-11.7); MONO # 0.7 K/uL (0.0-0.8); MONO % 10.5 % (0.0-10.0); NEUT # 5.4 K/uL (1.8-7.0); NEUT % 76.9 % (50.0-75.0); NRBC % 0.1 % (0.0-2.0); RBC 3.52 Mil/uL (4.40-5.90); RED CELL DISTRIBUTION WIDTH 16.7 % (11.5-14.5)
[2018-01-15] MEDS: (Novolog) Insulin Aspart, Recombinant 100 u/ml 10 ml vial SC SCH ×4 (07:30→21:26)
[2018-01-15 07:43] LABS: ALB/GLOB RATIO 1.1 (1.0-2.1); ALBUMIN 3.4 g/dL (3.5-5.0); CALCIUM 8.7 mg/dl (8.6-10.4)
--- NOTE | 2018-01-15 08:11 | CP.PCM.PN ---
Subjective - Date & Time of Evaluation Date of Evaluation: 01/15/18 Time of Evaluation: 08:50 - Subjective Subjective: Cardiology Progress Note Alison Erickson, PGY1 note for Dr. Dumont Patient seen and examined at bedside this morning. No acute events overnight. Offers no complaints at this time. Plan for cath today. Objective - Vital Signs/Intake and Output Vital Signs (last 24 hours): Temp Pulse Resp BP Pulse Ox 97.7 F 91 H 20 119/71 98 01/15/18 04:00 01/15/18 04:00 01/15/18 04:00 01/15/18 04:00 01/15/18 04:00 Intake and Output: 01/15/18 01/15/18 06:59 18:59 Intake Total 150 Balance 150 - Medications Medications: Current Medications Aspirin (Aspirin Chewable) 81 mg PO DAILY [facility] Last Admin: 01/14/18 09:08 Dose: 81 mg Clopidogrel Bisulfate (Plavix) 75 mg PO DAILY [facility] Last Admin: 01/14/18 09:08 Dose: 75 mg Dextrose (Dextrose 50% Inj) 0 ml IV STAT PRN; Protocol PRN Reason: Hypoglycemia Protocol Dextrose (Glutose 15) 0 gm PO ONCE PRN; Protocol PRN Reason: Hypoglycemia Protocol Famotidine (Pepcid) 20 mg PO DAILY [facility] Last Admin: 01/14/18 09:07 Dose: 20 mg Finasteride (Proscar) 5 mg PO DAILY [facility] Last Admin: 01/14/18 09:07 Dose: 5 mg Furosemide (Lasix) 40 mg IVP BID [facility] Last Admin: 01/14/18 17:50 Dose: 40 mg Glucagon (Glucagen Diagnostic Kit) 0 mg IM STAT PRN; Protocol PRN Reason: Hypoglycemia Protocol Heparin Sodium/Sodium Chloride (Heparin 45920 Units/250ml 1/2 Normal Saline) 25,000 units in 250 mls @ 8 mls/hr IV .Q24H PRN; Protocol PRN Reason: PROTOCOL Last Admin: 01/14/18 15:21 Dose: 15.56 units/kg/hr, 12.448 mls/hr Insulin Aspart (Novolog) 0 unit SC ACHS [facility]; Protocol Last Admin: 01/14/18 22:10 Dose: Not Given Rosuvastatin Calcium (Crestor) 5 mg PO HS [facility] Last Admin: 01/14/18 22:17 Dose: 5 mg Tamsulosin HCl (Flomax) 0.4 mg PO DAILY [facility] Last Admin: 01/14/18 09:07 Dose: 0.4 mg - Labs Labs: 01/15/18 06:55 01/15/18 06:55 PT 16.0 SECONDS (9.7-12.2) H 01/05/18 20:09 INR 1.5 01/05/18 20:09 APTT 55 SECONDS (21-34) H 01/15/18 06:55 - Constitutional Appears: No Acute Distress - Head Exam Head Exam: ATRAUMATIC - Eye Exam Eye Exam: EOMI Pupil Exam: PERRL - ENT Exam ENT Exam: Mucous Membranes Moist - Respiratory Exam Respiratory Exam: Clear to Ausculation Bilateral. absent: Respiratory Distress - Cardiovascular Exam Cardiovascular Exam: REGULAR RHYTHM, +S1, +S2 - GI/Abdominal Exam GI & Abdominal Exam: Normal Bowel Sounds. absent: Guarding, Rigid - Extremities Exam Extremities Exam: Normal Inspection. absent: Calf Tenderness Additional comments: B/L LE swelling improved - Neurological Exam Neurological Exam: Alert, Awake, Oriented x3 - Skin Skin Exam: Normal Color, Warm Assessment and Plan - Assessment and Plan (Free Text) Assessment: This is a 67 year old male with PMH of CAD s/p CABG 11/2017 presenting to hospital for management of acute on chronic systolic heart failure. Plan: Acute on chronic systolic heart failure -plan for cath today -continue heparin drip -continue plavix, asa, crestor -continue lasix -CXR shows findings consistent with CHF and pleural effusions -BNP improving CKD -s/p HD x3. Femoral dialysis removed per nephro on 01/14 -BUN/Cr is 63/5.3 from 46/4.6 yesterday Case discussed with attending, further recommendations per Dr. Dumont
--- NOTE | 2018-01-15 09:26 | CP.PCM.PN ---
<Mateo Chaidez - Last Filed: 01/15/18 18:09> Subjective - Date & Time of Evaluation Date of Evaluation: 01/15/18 Time of Evaluation: 07:45 - Subjective Subjective: Medicine Progress Note for Hospitalist Service Pt seen and examined at bedside this am. Denies any acute complaints, observed oob to chair saturating well on room air. No acute events reported overnight. Pt to have cardiac cath today with Dr. Dumont, currently NPO. 12-point ROS obtained, otherwise neg as per pt. Reports LE swelling is improving. Objective - Vital Signs/Intake and Output Vital Signs (last 24 hours): Temp Pulse Resp BP Pulse Ox 97.7 F 91 H 20 119/71 98 01/15/18 04:00 01/15/18 04:00 01/15/18 04:00 01/15/18 04:00 01/15/18 04:00 Intake and Output: 01/15/18 01/15/18 06:59 18:59 Intake Total 150 Balance 150 - Medications Medications: Current Medications Aspirin (Aspirin Chewable) 81 mg PO DAILY [facility] Last Admin: 01/14/18 09:08 Dose: 81 mg Clopidogrel Bisulfate (Plavix) 75 mg PO DAILY [facility] Last Admin: 01/14/18 09:08 Dose: 75 mg Dextrose (Dextrose 50% Inj) 0 ml IV STAT PRN; Protocol PRN Reason: Hypoglycemia Protocol Dextrose (Glutose 15) 0 gm PO ONCE PRN; Protocol PRN Reason: Hypoglycemia Protocol Famotidine (Pepcid) 20 mg PO DAILY [facility] Last Admin: 01/14/18 09:07 Dose: 20 mg Finasteride (Proscar) 5 mg PO DAILY [facility] Last Admin: 01/14/18 09:07 Dose: 5 mg Furosemide (Lasix) 40 mg IVP BID [facility] Last Admin: 01/14/18 17:50 Dose: 40 mg Glucagon (Glucagen Diagnostic Kit) 0 mg IM STAT PRN; Protocol PRN Reason: Hypoglycemia Protocol Heparin Sodium/Sodium Chloride (Heparin 57063 Units/250ml 1/2 Normal Saline) 25,000 units in 250 mls @ 8 mls/hr IV .Q24H PRN; Protocol PRN Reason: PROTOCOL Last Admin: 01/14/18 15:21 Dose: 15.56 units/kg/hr, 12.448 mls/hr Insulin Aspart (Novolog) 0 unit SC ACHS [facility]; Protocol Last Admin: 01/14/18 22:10 Dose: Not Given Rosuvastatin Calcium (Crestor) 5 mg PO HS [facility] Last Admin: 01/14/18 22:17 Dose: 5 mg Tamsulosin HCl (Flomax) 0.4 mg PO DAILY [facility] Last Admin: 01/14/18 09:07 Dose: 0.4 mg - Labs Labs: 01/15/18 06:55 01/15/18 06:55 PT 16.0 SECONDS (9.7-12.2) H 01/05/18 20:09 INR 1.5 01/05/18 20:09 APTT 55 SECONDS (21-34) H 01/15/18 06:55 - Constitutional Appears: Non-toxic, No Acute Distress, Chronically Ill - Head Exam Head Exam: ATRAUMATIC, NORMOCEPHALIC - Eye Exam Eye Exam: EOMI, Normal appearance, PERRL - ENT Exam ENT Exam: Mucous Membranes Moist - Respiratory Exam Respiratory Exam: Clear to Ausculation Bilateral, NORMAL BREATHING PATTERN. absent: Rales, Rhonchi, Wheezes - Cardiovascular Exam Cardiovascular Exam: REGULAR RHYTHM, +S1, +S2. absent: Gallop, Rubs, Murmur - GI/Abdominal Exam GI & Abdominal Exam: Soft, Normal Bowel Sounds. absent: Distended, Firm, Guarding, Rigid, Tenderness, Organomegaly, Rebound - Extremities Exam Extremities Exam: Full ROM, Normal Capillary Refill Additional comments: 2+ pedal edema b/l - Neurological Exam Neurological Exam: Alert, Awake, CN II-XII Intact, Oriented x3 - Skin Skin Exam: Dry, Intact, Warm Assessment and Plan - Assessment and Plan (Free Text) Assessment: 67M PMhx CAD w/ NSTEMI here in 11/25 and s/p CABG at [facility] within last month, DM2, admitted to ICU after c/o 3 days of shortness of breath for CHF and pulmonary edema. S/p downgrade to tele floor. Plan: [id number] CHF No acute complaints today, improving clinically, sob improved S/p hemodialysis sessions x3 while inpatient Today's I's/O's: output 1216.5 cc in past 12 hrs, continue to monitor output EKG demonstrated 1st degree heart block and bradycardia with no acute ST-T wave changes Echo: EF 34%, Impaired systolic function Cardio consulted (Dr. Delgado), recs appreciated Lasix 40 mg IVP bid [id number] Renal Failure Today's output as mentioned above, continue to trend I's/O's BUN CR 63/5.3 today Fluid restriction and dialysis as per Dr. Powers (Nephro) Pt has hx of non-compliance with DM tx/chronic renal disease Avoid nephrotoxic drugs May or may not need renal bx, f/u nephro recs S/p hemodialysis x3 since being inpatient NSTEMI, recent CABG, elevated troponins Per Cardio, cardiac cath for this 01/15 C/w ASA, Plavix C/w Rosuvastatin 5 mg PO hs Recently went to [facility] for CABG in past month and was discharged DM Novolog sliding scale Fingersticks achs Hypoglycemic protocol Continue to monitor Elevated Lactate + R leg s/p vein harvest for CABG, R/o infection S/p 1x dose vanco in ED Cipro 400 mg IVPB daily d/c'd Blood and urine cxs demonstrated no growth Wound cx 01/06 showed Proteus mirabilis, Klebsiella pneumoniae, Strep pneumo, Enterococcus faecalis Procalcitonin elevated at 1.18 on 01/06 Diet: renal DVT ppx: Heparin GI ppx: Pepcid Dispo: for cardiac cath 01/15 as per Cardio, possible Loop recorder placement 01/16 as per EP (Dr. Mi) Pt seen, examined with, and plan d/w Dr. Lynn, attending. Mateo Chaidez DO PGY-1, [employer] Pager #[phone] <Lawanda Lynn - Last Filed: 01/20/18 18:04> Objective - Vital Signs/Intake and Output Vital Signs (last 24 hours): Temp Pulse Resp BP Pulse Ox 97.7 F 81 20 99/62 L 98 01/20/18 15:00 01/20/18 15:00 01/20/18 15:00 01/20/18 15:00 01/20/18 15:00 Intake and Output: 01/20/18 01/20/18 06:59 18:59 Intake Total 350 Balance 350 - Medications Medications: Current Medications Aspirin (Aspirin Chewable) 81 mg PO DAILY [facility] Last Admin: 01/20/18 09:25 Dose: 81 mg Carvedilol (Coreg) 3.125 mg PO BID [facility] Last Admin: 01/20/18 09:25 Dose: 3.125 mg Clopidogrel Bisulfate (Plavix) 75 mg PO DAILY [facility] Last Admin: 01/20/18 09:25 Dose: 75 mg Dextrose (Dextrose 50% Inj) 0 ml IV STAT PRN; Protocol PRN Reason: Hypoglycemia Protocol Dextrose (Glutose 15) 0 gm PO ONCE PRN; Protocol PRN Reason: Hypoglycemia Protocol Finasteride (Proscar) 5 mg PO DAILY [facility] Last Admin: 01/20/18 09:25 Dose: 5 mg Glucagon (Glucagen Diagnostic Kit) 0 mg IM STAT PRN; Protocol PRN Reason: Hypoglycemia Protocol Insulin Aspart (Novolog) 0 unit SC ACHS [facility]; Protocol Last Admin: 01/20/18 12:43 Dose: 4 units Rosuvastatin Calcium (Crestor) 5 mg PO HS [facility] Last Admin: 01/19/18 21:11 Dose: 5 mg Tamsulosin HCl (Flomax) 0.4 mg PO DAILY [facility] Last Admin: 01/20/18 09:25 Dose: 0.4 mg - Labs Labs: 01/20/18 07:09 01/20/18 14:56 PT 16.0 SECONDS (9.7-12.2) H 01/05/18 20:09 INR 1.5 01/05/18 20:09 APTT 55 SECONDS (21-34) H 01/15/18 06:55 Attending/Attestation - Attestation I have personally seen and examined this patient.: Yes I have fully participated in the care of the patient.: Yes I have reviewed all pertinent clinical information, including history, physical exam and plan: Yes Notes (Text): SEEN AND EXAMINED BY ME PATIENT IS NPO FOR CARDIAC CATH 1. ACUTE ON CHRONIC SYSTOLIC HEART FAILURE 2.NSTMI,S/P CABG 3.ACUTE ON CHRONIC RENAL FAILURE 4.NONCOMPLIANCE WITH MEDS 5.DM 6.S/P BRADYCARDIA IMPROVED SPOKE TO DR DUMONT. GOING FOR CATH TO SEE HIS CORONARIES SPOKE TO EP PHYSICIAN DR CHANDLER. PATIENT WILL HAVE A LOOP RECORDER GETTING DIALYSIS,URINE OUT PUT IMPROVING.LIKELY CHRONIC RENAL FAILURE S/P SHILEY CATH DISCUSSED WITH RESIDENT
[2018-01-15] MEDS ORDERED: Lidocaine 2% PF (10 ml) Amp ONE (12:38)
[2018-01-15] MEDS ORDERED: Iodixanol 320 MG/ML 100 ML BOTTLE IV ONE ×2 (12:40→12:47)
[2018-01-15] MEDS ORDERED: Midazolam 2 MG/2 ML VIAL ONE (13:05)
[2018-01-15] MEDS ORDERED: Heparin 1,000 UNITS in Sodium Chloride 0.9% 9 ML IVP ONE (18:00)
--- NOTE | 2018-01-15 18:54 | CP.PCM.CON ---
History of Present Illness - History of Present Illness History of Present Illness: Vascular surgery consult note for Dr. Christiansen Pt is a 67M with PMH of CAD s/p CABG with TRAVIS requiring hemodialysis. Patient denies any symptoms at this time, is resting comfortably. Risks and benefits of the procedure were discussed with the patient in the presence of the nurse and Dr. Christiansen, and patient agreed to bedside HD catheter insertion. PMH: CAD, HTN, TRAVIS PSH: CABG ALL: NKDA Review of Systems - Review of Systems All systems: reviewed and no additional remarkable complaints except (as per HPI) Past Patient History - Tetanus Immunizations Tetanus Immunization: Unknown - Past Medical History & Family History Past Medical History?: Yes Past Family History: Reviewed and not pertinent - Past Social History Smoking Status: Never Smoked - CARDIAC Hx Cardiac Disorders: Yes (CAD) - PULMONARY Hx Respiratory Disorders: No - NEUROLOGICAL Hx Neurological Disorder: No - HEENT Hx HEENT Problems: No - RENAL Hx Chronic Kidney Disease: No - ENDOCRINE/METABOLIC Hx Diabetes Mellitus Type 2: Yes - HEMATOLOGICAL/ONCOLOGICAL Hx Blood Disorders: No - INTEGUMENTARY Hx Dermatological Problems: No - MUSCULOSKELETAL/RHEUMATOLOGICAL Hx Musculoskeletal Disorders: No - GASTROINTESTINAL Hx Gastrointestinal Disorders: No - GENITOURINARY/GYNECOLOGICAL Hx Genitourinary Disorders: No - PSYCHIATRIC Hx Substance Use: No - SURGICAL HISTORY Hx Surgeries: No - ANESTHESIA Hx Anesthesia: No Meds Allergies/Adverse Reactions: Allergies Allergy/AdvReac Type Severity Reaction Status Date / Time No Known Allergies Allergy Verified 01/05/18 20:19 - Medications Medications: Current Medications Aspirin (Aspirin Chewable) 81 mg PO DAILY [facility] Last Admin: 01/15/18 15:00 Dose: 81 mg Clopidogrel Bisulfate (Plavix) 75 mg PO DAILY [facility] Last Admin: 01/15/18 15:00 Dose: 75 mg Dextrose (Dextrose 50% Inj) 0 ml IV STAT PRN; Protocol PRN Reason: Hypoglycemia Protocol Dextrose (Glutose 15) 0 gm PO ONCE PRN; Protocol PRN Reason: Hypoglycemia Protocol Famotidine (Pepcid) 20 mg PO DAILY [facility] Last Admin: 01/15/18 15:00 Dose: 20 mg Finasteride (Proscar) 5 mg PO DAILY [facility] Last Admin: 01/15/18 15:00 Dose: 5 mg Furosemide (Lasix) 40 mg IVP BID [facility] Last Admin: 01/15/18 15:00 Dose: 40 mg Glucagon (Glucagen Diagnostic Kit) 0 mg IM STAT PRN; Protocol PRN Reason: Hypoglycemia Protocol Heparin Sodium (Porcine) 1,000 (units/ Sodium Chloride) 10 mls @ 10 mls/hr IVP ONCE ONE Stop: 01/15/18 18:59 Insulin Aspart (Novolog) 0 unit SC ACHS [facility]; Protocol Last Admin: 01/14/18 22:10 Dose: Not Given Rosuvastatin Calcium (Crestor) 5 mg PO HS [facility] Last Admin: 01/14/18 22:17 Dose: 5 mg Tamsulosin HCl (Flomax) 0.4 mg PO DAILY [facility] Last Admin: 01/15/18 15:00 Dose: 0.4 mg Physical Exam - Constitutional Appears: Well, Non-toxic, No Acute Distress - Head Exam Head Exam: ATRAUMATIC, NORMOCEPHALIC - Eye Exam Eye Exam: Normal appearance. absent: Conjunctival injection, Scleral icterus - ENT Exam ENT Exam: Mucous Membranes Moist, Normal Oropharynx - Neck Exam Neck exam: Positive for: Normal Inspection Additional comments: no swelling, trachea midline - Respiratory Exam Respiratory Exam: NORMAL BREATHING PATTERN. absent: Accessory Muscle Use, Respiratory Distress - Cardiovascular Exam Cardiovascular Exam: RRR - GI/Abdominal Exam GI & Abdominal Exam: Soft. absent: Distended, Tenderness - Extremities Exam Extremities exam: Positive for: pedal pulses present. Negative for: calf tenderness, pedal edema - Neurological Exam Neurological exam: Alert, Oriented x3 - Psychiatric Exam Psychiatric exam: Normal Affect, Normal Mood - Skin Skin Exam: Dry, Normal Color, Warm Results - Vital Signs Recent Vital Signs: Last Vital Signs Temp 98.2 F 01/15/18 12:00 Pulse 86 01/15/18 12:00 Resp 20 01/15/18 12:00 BP 106/68 01/15/18 15:00 Pulse Ox 98 01/15/18 12:00 - Labs Result Diagrams: 01/15/18 06:55 01/15/18 06:55 Labs: Laboratory Results - last 24 hr 01/10/18 01/14/18 01/15/18 07:46 21:24 06:55 WBC 7.0 RBC 3.52 L Hgb 10.1 L Hct 30.8 L MCV 87.4 MCH 28.6 MCHC 32.7 L RDW 16.7 H Plt Count 164 MPV 8.5 Neut % (Auto) 76.9 H Lymph % (Auto) 11.8 L Runnels % (Auto) 10.5 H Eos % (Auto) 0.6 Baso % (Auto) 0.2 Neut # (Auto) 5.4 Lymph # (Auto) 0.8 L Runnels # (Auto) 0.7 Eos # (Auto) 0.0 Baso # (Auto) 0.0 APTT Sodium Potassium Chloride Carbon Dioxide Anion Gap BUN Creatinine Est GFR ( Amer) Est GFR (Non-Af Amer) POC Glucose (mg/dL) 154 H Random Glucose Calcium Phosphorus Magnesium Total Bilirubin AST ALT Alkaline Phosphatase Total Protein Albumin Globulin Albumin/Globulin Ratio Glomerular Base Mem IgG <1.0 01/15/18 01/15/18 01/15/18 06:55 06:55 07:33 WBC RBC Hgb Hct MCV MCH MCHC RDW Plt Count MPV Neut % (Auto) Lymph % (Auto) Runnels % (Auto) Eos % (Auto) Baso % (Auto) Neut # (Auto) Lymph # (Auto) Runnels # (Auto) Eos # (Auto) Baso # (Auto) APTT 55 H Sodium 140 Potassium 4.1 Chloride 100 Carbon Dioxide 26 Anion Gap 19 BUN 63 H Creatinine 5.3 H Est GFR ( Amer) 13 Est GFR (Non-Af Amer) 11 POC Glucose (mg/dL) 179 H Random Glucose 163 H Calcium 8.7 Phosphorus 6.3 H Magnesium 1.9 Total Bilirubin 0.7 AST 21 ALT 87 H D Alkaline Phosphatase 217 H Total Protein 6.6 Albumin 3.4 L Globulin 3.2 Albumin/Globulin Ratio 1.1 Glomerular Base Mem IgG Assessment & Plan - Assessment and Plan (Free Text) Assessment: 67M with TRAVIS needing HD access Plan: HD catheter insertion into RIJ at bedside--patient tolerated procedure well with small amount of blood loss, no other complications May use catheter for HD immediately Monitor for any bleeding or swelling at the insertion site Contact surgery for any further questions or concerns Proc: Central Venous Access - Time Performed Time Performed: 17:45 - Time Out Time Out: Side verified, Site verified, Patient ID confirmed, Sterile procedures obs. - Procedure Procedure: Central Line placement: Right Technique:: Seldinger technique, Ultrasound guidance, Internal jugular vein - Consent obtained Consent obtained: Written - Performed by Performed by: Mid-level Provider (Angela Adair, PGY2; assisted by Price Castillo [id number]) - Indications Indication(s):: Hemodialysis Contraindications: coagulopathy Tube type:: Double lumen, Hemodialysis Tube size Peruvian:: 11 (11.5) - Local Anesthetic Local Anesthetic: Lidocaine: 1% lidocaine 3cc - Number of Attempts Attempts: 1 - Depth of Skin Depth at skin cm:: 16 - Line sutured in place Line sutured in place:: Yes - Confirmation Confirmation:: CXR -tube approp position, No pneumothorax - Post-procedural O2 Sat % Post-procedural O2 sat %:: 95 - Complications Complications: none, EBL 20cc's - Patient tolerated procedure Patient Tolerated Procedure:: Well
--- NOTE | 2018-01-15 21:32 | CP.PCM.PN ---
Subjective - Date & Time of Evaluation Date of Evaluation: 01/15/18 Time of Evaluation: 12:00 - Subjective Subjective: Seen just prior to cardiac cath; feeling well; breathing improved; Objective - Vital Signs/Intake and Output Vital Signs (last 24 hours): Temp Pulse Resp BP Pulse Ox 97.5 F L 88 20 119/79 96 01/15/18 16:00 01/15/18 21:20 01/15/18 21:20 01/15/18 19:19 01/15/18 19:20 Intake and Output: 01/15/18 01/16/18 18:59 06:59 Intake Total 222 Output Total 1900 Balance -1678 - Medications Medications: Current Medications Aspirin (Aspirin Chewable) 81 mg PO DAILY [facility] Last Admin: 01/15/18 15:00 Dose: 81 mg Clopidogrel Bisulfate (Plavix) 75 mg PO DAILY [facility] Last Admin: 01/15/18 15:00 Dose: 75 mg Dextrose (Dextrose 50% Inj) 0 ml IV STAT PRN; Protocol PRN Reason: Hypoglycemia Protocol Dextrose (Glutose 15) 0 gm PO ONCE PRN; Protocol PRN Reason: Hypoglycemia Protocol Famotidine (Pepcid) 20 mg PO DAILY [facility] Last Admin: 01/15/18 15:00 Dose: 20 mg Finasteride (Proscar) 5 mg PO DAILY [facility] Last Admin: 01/15/18 15:00 Dose: 5 mg Furosemide (Lasix) 40 mg IVP BID [facility] Last Admin: 01/15/18 18:00 Dose: Not Given Glucagon (Glucagen Diagnostic Kit) 0 mg IM STAT PRN; Protocol PRN Reason: Hypoglycemia Protocol Insulin Aspart (Novolog) 0 unit SC [facility]; Protocol Last Admin: 01/15/18 21:26 Dose: Not Given Rosuvastatin Calcium (Crestor) 5 mg PO HS [facility] Last Admin: 01/14/18 22:17 Dose: 5 mg Tamsulosin HCl (Flomax) 0.4 mg PO DAILY [facility] Last Admin: 01/15/18 15:00 Dose: 0.4 mg - Labs Labs: 01/15/18 06:55 01/15/18 06:55 PT 16.0 SECONDS (9.7-12.2) H 01/05/18 20:09 INR 1.5 01/05/18 20:09 APTT 55 SECONDS (21-34) H 01/15/18 06:55 - Constitutional Appears: Non-toxic, No Acute Distress - Eye Exam Eye Exam: Normal appearance - Respiratory Exam Respiratory Exam: Clear to Ausculation Bilateral. absent: Respiratory Distress - Cardiovascular Exam Cardiovascular Exam: RRR, +S1, +S2 - GI/Abdominal Exam GI & Abdominal Exam: Soft. absent: Distended, Tenderness - Extremities Exam Additional comments: mild/moderate leg edema (improved); - Neurological Exam Neurological Exam: Alert, Awake - Psychiatric Exam Psychiatric exam: Normal Mood. absent: Agitated - Skin Skin Exam: Warm. absent: Cyanosis Assessment and Plan (1) Acute renal failure Assessment & Plan: TRAVIS on CKD; now non-oliguric but still with inadequate clearance as reflected by rising serum creatinine; stable volume and electrolyte status, no urgent indication for HD today; vascular surgery to re-insert HD cath (temp femoral removed); plan for HD tomorrow; Status: Acute (2) CKD (chronic kidney disease) Assessment & Plan: Proteinuric kidney disease of unclear etiology; renal biopsy is needed but still question of whether ASA/plavix can be held for a few days; will discuss again with cardio given the lack of any acute findings on cath; Status: Chronic (3) Heart failure, systolic, with acute decompensation Assessment & Plan: Volume status much improved; continuing IV lasix 40 mg bid for now; Status: Acute (4) NSTEMI (non-ST elevated myocardial infarction) Status: Acute
--- NOTE | 2018-01-16 01:12 | CARDCATH ---
PROCEDURE DATE: 01/15/2018 INDICATIONS: Aram Keen is a 67-year-old male who presented to [facility] with acute CHF exacerbation and non-ST elevation NM. The patient was titrated medically for optimization of his heart failure regimen and is subsequently brought to quality control lab technician for evaluation of recent CAD and CABG. l PROCEDURES PERFORMED: Left heart catheterization with selective left and right coronary angiogram, left ventriculogram, 6-Indian right femoral arterial access, Mynx closure device for hemostasis. ANGIOGRAPHIC FINDINGS: The left main is a large-sized vessel, bifurcates into LAD and circumflex. Left circumflex runs in the AV groove, had proximal 75% bifurcating lesion, obtuse marginal 1 patent with a competitive flow noted. Distal circumflex has collateralized flow to the right PDA with left and right collaterals. LAD has a mid to proximal 99% stenosis. Competitive flow noted in the left anterior descending artery diagonal . RCA proximal 100% occluded. EF 40% to 45%. EDP 18. IMPRESSION: Severe anvik triple-vessel disease, patent grafts left internal mammary artery to left anterior descending and graft to obtuse marginal, right coronary artery collateralized from left to right circulation. Ischemic cardiomyopathy, ejection fraction 45%. RECOMMENDATIONS: The patient is to be transferred back to the ICU. Continue hemodialysis. Aggressive medical management. No current intervention indicated at this time. Ector Dumont MD
[2018-01-16 05:56] LABS: MEAN CELL VOLUME 86.7 fL (80.0-94.0); MEAN CORPUSCULAR HEMOGLOBIN 28.6 pg (27.0-31.0); MEAN PLATELET VOLUME 8.2 fL (7.2-11.7); RBC 3.51 Mil/uL (4.40-5.90); RED CELL DISTRIBUTION WIDTH 16.9 % (11.5-14.5); WHITE BLOOD COUNT 7.1 K/uL (4.8-10.8)
[2018-01-16 05:57] LABS: BASO % 0.3 % (0.0-2.0); EOS % 0.6 % (0.0-4.0); LYMPH # 0.8 K/uL (1.0-4.3); LYMPH % 11.2 % (20.0-40.0); MONO # 0.7 K/uL (0.0-0.8); MONO % 9.7 % (0.0-10.0); NEUT # 5.6 K/uL (1.8-7.0); NEUT % 78.2 % (50.0-75.0)
[2018-01-16 06:23] LABS: ALB/GLOB RATIO 1.1 (1.0-2.1); ALBUMIN 3.4 g/dL (3.5-5.0); CALCIUM 8.7 mg/dl (8.6-10.4)
--- NOTE | 2018-01-16 08:08 | CP.PCM.PN ---
Subjective - Date & Time of Evaluation Date of Evaluation: 01/16/18 Time of Evaluation: 08:45 - Subjective Subjective: Cardiology Progress Note Alison Erickson, PGY1 note for Dr. Dumont Patient seen and examined at bedside this morning. No acute events overnight and offers no complaints at this time. S/p cardiac cath yesterday, no invasive intervention at this time, will continue with medical management. Objective - Vital Signs/Intake and Output Vital Signs (last 24 hours): Temp Pulse Resp BP Pulse Ox 98.5 F 87 20 140/81 95 01/16/18 07:43 01/16/18 07:43 01/16/18 07:43 01/16/18 07:43 01/16/18 07:43 - Medications Medications: Current Medications Aspirin (Aspirin Chewable) 81 mg PO DAILY [facility] Last Admin: 01/15/18 15:00 Dose: 81 mg Clopidogrel Bisulfate (Plavix) 75 mg PO DAILY [facility] Last Admin: 01/15/18 15:00 Dose: 75 mg Dextrose (Dextrose 50% Inj) 0 ml IV STAT PRN; Protocol PRN Reason: Hypoglycemia Protocol Dextrose (Glutose 15) 0 gm PO ONCE PRN; Protocol PRN Reason: Hypoglycemia Protocol Famotidine (Pepcid) 20 mg PO DAILY [facility] Last Admin: 01/15/18 15:00 Dose: 20 mg Finasteride (Proscar) 5 mg PO DAILY [facility] Last Admin: 01/15/18 15:00 Dose: 5 mg Furosemide (Lasix) 40 mg IVP BID [facility] Last Admin: 01/15/18 18:00 Dose: Not Given Glucagon (Glucagen Diagnostic Kit) 0 mg IM STAT PRN; Protocol PRN Reason: Hypoglycemia Protocol Insulin Aspart (Novolog) 0 unit SC ACHS [facility]; Protocol Last Admin: 01/15/18 21:26 Dose: Not Given Rosuvastatin Calcium (Crestor) 5 mg PO HS [facility] Last Admin: 01/15/18 22:37 Dose: 5 mg Tamsulosin HCl (Flomax) 0.4 mg PO DAILY [facility] Last Admin: 01/15/18 15:00 Dose: 0.4 mg - Labs Labs: 01/16/18 05:48 01/16/18 05:49 PT 16.0 SECONDS (9.7-12.2) H 01/05/18 20:09 INR 1.5 01/05/18 20:09 APTT 55 SECONDS (21-34) H 01/15/18 06:55 - Constitutional Appears: No Acute Distress - Head Exam Head Exam: ATRAUMATIC - Eye Exam Eye Exam: EOMI Pupil Exam: PERRL - ENT Exam ENT Exam: Mucous Membranes Moist - Respiratory Exam Respiratory Exam: Clear to Ausculation Bilateral. absent: Respiratory Distress - Cardiovascular Exam Cardiovascular Exam: REGULAR RHYTHM, +S1, +S2 - GI/Abdominal Exam GI & Abdominal Exam: Normal Bowel Sounds. absent: Guarding, Rigid - Extremities Exam Extremities Exam: Normal Inspection. absent: Calf Tenderness Additional comments: leg swelling is non appreciable today - Neurological Exam Neurological Exam: Alert, Awake, Oriented x3 - Skin Skin Exam: Normal Color, Warm Assessment and Plan - Assessment and Plan (Free Text) Assessment: This is a 67 year old male with PMH of CAD s/p CABG 11/2017 presenting to hospital for management of acute on chronic systolic heart failure. Plan: Acute on chronic systolic heart failure -will be evaluated for loop recorder, pacemaker placement -s/p cardiac cath on 01/15 -showed severe sob[place] triple vessel disease, patent grafts, ischemic cardiomyopathy, EF of 45% -continue with hemodialysis as needed, aggressive medical management. Intervention not indicated at this time -continue plavix, asa, crestor -continue lasix -CXR shows findings consistent with CHF and pleural effusions CKD -s/p HD x3. Femoral dialysis removed per nephro on 01/14 -BUN/Cr is 72/5.7 today from 63/5.3 yesterday Case discussed with attending, further recommendations per Dr. Dumont
--- NOTE | 2018-01-16 08:23 | CP.PCM.PN ---
Subjective - Date & Time of Evaluation Date of Evaluation: 01/16/18 Time of Evaluation: 08:22 - Subjective Subjective: PGY-[address] Lynn. Patient seen and examined at bedside, in no acute distress. He reports feeling well, he had a bowel movement and has been urinating regularly. He denies any SOB, chest pain, tightness or palpitations, nausea, vomiting, diarrhea or constipation. He denies any pain or discomfort. He reports feeling well, he had a bowel movement and has been urinating regularly. He mentioned his wound on R leg is getting smaller and healing. Patient went for dialysis today. Objective - Vital Signs/Intake and Output Vital Signs (last 24 hours): Temp Pulse Resp BP Pulse Ox 98.5 F 87 20 140/81 95 01/16/18 07:43 01/16/18 07:43 01/16/18 07:43 01/16/18 07:43 01/16/18 07:43 - Medications Medications: Current Medications Aspirin (Aspirin Chewable) 81 mg PO DAILY [facility] Last Admin: 01/15/18 15:00 Dose: 81 mg Clopidogrel Bisulfate (Plavix) 75 mg PO DAILY [facility] Last Admin: 01/15/18 15:00 Dose: 75 mg Dextrose (Dextrose 50% Inj) 0 ml IV STAT PRN; Protocol PRN Reason: Hypoglycemia Protocol Dextrose (Glutose 15) 0 gm PO ONCE PRN; Protocol PRN Reason: Hypoglycemia Protocol Famotidine (Pepcid) 20 mg PO DAILY [facility] Last Admin: 01/15/18 15:00 Dose: 20 mg Finasteride (Proscar) 5 mg PO DAILY [facility] Last Admin: 01/15/18 15:00 Dose: 5 mg Furosemide (Lasix) 40 mg IVP BID [facility] Last Admin: 01/15/18 18:00 Dose: Not Given Glucagon (Glucagen Diagnostic Kit) 0 mg IM STAT PRN; Protocol PRN Reason: Hypoglycemia Protocol Insulin Aspart (Novolog) 0 unit SC ACHS [facility]; Protocol Last Admin: 01/15/18 21:26 Dose: Not Given Rosuvastatin Calcium (Crestor) 5 mg PO HS [facility] Last Admin: 01/15/18 22:37 Dose: 5 mg Tamsulosin HCl (Flomax) 0.4 mg PO DAILY [facility] Last Admin: 01/15/18 15:00 Dose: 0.4 mg - Labs Labs: 01/16/18 05:48 01/16/18 05:49 PT 16.0 SECONDS (9.7-12.2) H 01/05/18 20:09 INR 1.5 01/05/18 20:09 APTT 55 SECONDS (21-34) H 01/15/18 06:55 - Constitutional Appears: Non-toxic, No Acute Distress - Head Exam Head Exam: ATRAUMATIC, NORMOCEPHALIC - Eye Exam Eye Exam: EOMI - ENT Exam ENT Exam: Mucous Membranes Moist - Neck Exam Neck Exam: Full ROM Additional comments: R IJ catheter in place - Respiratory Exam Respiratory Exam: Decreased Breath Sounds (at bases bilaterallly), Clear to Ausculation Bilateral - Cardiovascular Exam Cardiovascular Exam: REGULAR RHYTHM, +S1, +S2 - GI/Abdominal Exam GI & Abdominal Exam: Soft, Normal Bowel Sounds. absent: Guarding, Tenderness, Rebound - Extremities Exam Extremities Exam: Full ROM. absent: Pedal Edema, Tenderness - Neurological Exam Neurological Exam: Alert, Awake, Oriented x3 - Psychiatric Exam Psychiatric exam: Normal Affect, Normal Mood - Skin Skin Exam: Dry, Normal Color, Warm Assessment and Plan - Assessment and Plan (Free Text) Plan: 67M PMhx CAD w/ NSTEMI here in 11/25 and s/p CABG at [place] within last month, DM2, admitted to ICU after c/o 3 days of shortness of breath for CHF and pulmonary edema. S/p downgrade to tele floor. Plan: [id number] CHF No acute complaints today, improving clinically, sob improved S/p hemodialysis sessions x4 while inpatient Continue to monitor output EKG demonstrated 1st degree heart block and bradycardia with no acute ST-T wave changes Echo: EF 34%, Impaired systolic function Cardio consulted (Dr. Delgado), recs appreciated Lasix 40 mg IVP bid [id number] Renal Failure Today's output as mentioned above, continue to trend I's/O's BUN CR 63/5.3 today Fluid restriction and dialysis as per Dr. Powers (Nephro) Pt has hx of non-compliance with DM tx/chronic renal disease Avoid nephrotoxic drugs May or may not need renal bx, f/u nephro recs NSTEMI, recent CABG, elevated troponins Per Cardio, cardiac cath for this Mon 01/15 C/w ASA, Plavix C/w Rosuvastatin 5 mg PO hs Recently went to [place] for CABG in past month and was discharged S/p cardiac cath Mon 01/15 DM Novolog sliding scale Fingersticks achs Hypoglycemic protocol Continue to monitor Elevated Lactate + R leg s/p vein harvest for CABG, R/o infection S/p 1x dose vanco in ED Cipro 400 mg IVPB daily d/c'd Blood and urine cxs demonstrated no growth Wound cx 01/06 showed Proteus mirabilis, Klebsiella pneumoniae, Strep pneumo, Enterococcus faecalis Procalcitonin elevated at 1.18 on 01/06 Diet: renal DVT ppx: Heparin GI ppx: Pepcid PT/OT eval and treat
[2018-01-16] MEDS ORDERED: Propofol 10 mg/ml Inj (20 ML) ONE (08:46)
[2018-01-16] MEDS: (Novolog) Insulin Aspart, Recombinant 100 u/ml 10 ml vial SC SCH ×4 (09:04→21:13)
--- NOTE | 2018-01-16 10:11 | RAD ---
Date of service: 01/15/2018 HISTORY: RIJ double lumen HD cath insertion COMPARISON: 01/13/2018 FINDINGS: LUNGS: No active pulmonary disease. PLEURA: Small bilateral pleural effusion suspected. No pneumothorax. CARDIOVASCULAR: Status post CABG. Normal heart size. No congestive change. Reportedly there is a right IJ central venous dialysis catheter. The catheter is not clearly demonstrated below the level of the clavicular heads and is not radiopaque. Positioning of the catheter is not clearly demonstrated on the basis of this examination. OSSEOUS STRUCTURES: No significant abnormalities. VISUALIZED UPPER ABDOMEN: Normal. OTHER FINDINGS: None. IMPRESSION: Small bilateral pleural effusion. Reportedly right IJ central venous dialysis catheter. Position not clearly demonstrated. No pneumothorax. Status post CABG.
--- NOTE | 2018-01-16 14:35 | CP.PCM.PN ---
<Vannesa Fuentes - Last Filed: 01/16/18 14:31> Subjective - Date & Time of Evaluation Date of Evaluation: 01/16/18 Time of Evaluation: 08:00 - Subjective Subjective: Nephrology Progress Note for Dr. Powers Patient was seen and examined at bedside in the AM. Patient states he feels better today. He states he has less swelling in his lower extremities. Patient states he is voiding. Patient denies chest pain, shortness of breath, diarrhea, constipation, fever or chills. Objective - Vital Signs/Intake and Output Vital Signs (last 24 hours): Temp Pulse Resp BP Pulse Ox 98.1 F 90 20 99/69 L 100 01/16/18 14:00 01/16/18 10:30 01/16/18 10:30 01/16/18 14:00 01/16/18 10:30 - Medications Medications: Current Medications Aspirin (Aspirin Chewable) 81 mg PO DAILY [facility] Last Admin: 01/15/18 15:00 Dose: 81 mg Clopidogrel Bisulfate (Plavix) 75 mg PO DAILY [facility] Last Admin: 01/15/18 15:00 Dose: 75 mg Dextrose (Dextrose 50% Inj) 0 ml IV STAT PRN; Protocol PRN Reason: Hypoglycemia Protocol Dextrose (Glutose 15) 0 gm PO ONCE PRN; Protocol PRN Reason: Hypoglycemia Protocol Famotidine (Pepcid) 20 mg PO DAILY [facility] Last Admin: 01/16/18 10:15 Dose: Not Given Finasteride (Proscar) 5 mg PO DAILY [facility] Last Admin: 01/16/18 10:15 Dose: Not Given Furosemide (Lasix) 40 mg IVP BID [facility] Last Admin: 01/15/18 18:00 Dose: Not Given Glucagon (Glucagen Diagnostic Kit) 0 mg IM STAT PRN; Protocol PRN Reason: Hypoglycemia Protocol Insulin Aspart (Novolog) 0 unit SC ACHS [facility]; Protocol Last Admin: 01/16/18 12:27 Dose: Not Given Rosuvastatin Calcium (Crestor) 5 mg PO HS [facility] Last Admin: 01/15/18 22:37 Dose: 5 mg Tamsulosin HCl (Flomax) 0.4 mg PO DAILY [facility] Last Admin: 01/16/18 10:15 Dose: Not Given - Labs Labs: 01/16/18 05:48 01/16/18 05:49 PT 16.0 SECONDS (9.7-12.2) H 01/05/18 20:09 INR 1.5 01/05/18 20:09 APTT 55 SECONDS (21-34) H 01/15/18 06:55 - Constitutional Appears: No Acute Distress, Chronically Ill - Head Exam Head Exam: ATRAUMATIC, NORMAL INSPECTION - Eye Exam Eye Exam: EOMI, Normal appearance - ENT Exam ENT Exam: Mucous Membranes Moist - Respiratory Exam Respiratory Exam: Clear to Ausculation Bilateral, NORMAL BREATHING PATTERN - Cardiovascular Exam Cardiovascular Exam: REGULAR RHYTHM, +S1, +S2 - GI/Abdominal Exam GI & Abdominal Exam: Soft. absent: Tenderness - Extremities Exam Extremities Exam: absent: Pedal Edema - Neurological Exam Neurological Exam: Alert, Awake, Oriented x3 Assessment and Plan - Assessment and Plan (Free Text) Assessment: 67 year old male with past medical history notable for DM II, CAD, CABG (11/27/2017) that required a week or so of dialysis post-operatively, systolic HF with estimated EF of 35% CKD who presented to [facility] for worsening shortness of breath, increased edema, decreased urine output. Acute on Chronic Renal Failure - secondary to ATN - Patient presented with severe hypotension/bradycardia on admission - Patient continues to have increasing urine output - Once Cr is stabilized will complete a Cr clearance - HD 01/16/18 - Stable electrolytes Will follow up with Dr. Dumont when to restart Aspirin and Plavix. Case discussed with Dr. Priya Fuentes PGY-2 <Maynor Powers - Last Filed: 01/17/18 06:09> Objective - Vital Signs/Intake and Output Vital Signs (last 24 hours): Temp Pulse Resp BP Pulse Ox 98.3 F 88 20 118/63 96 01/17/18 00:00 01/17/18 04:42 01/17/18 00:00 01/17/18 00:00 01/17/18 00:00 - Medications Medications: Current Medications Aspirin (Aspirin Chewable) 81 mg PO DAILY [facility] Last Admin: 01/15/18 15:00 Dose: 81 mg Clopidogrel Bisulfate (Plavix) 75 mg PO DAILY [facility] Last Admin: 01/15/18 15:00 Dose: 75 mg Dextrose (Dextrose 50% Inj) 0 ml IV STAT PRN; Protocol PRN Reason: Hypoglycemia Protocol Dextrose (Glutose 15) 0 gm PO ONCE PRN; Protocol PRN Reason: Hypoglycemia Protocol Famotidine (Pepcid) 20 mg PO DAILY [facility] Last Admin: 01/16/18 10:15 Dose: Not Given Finasteride (Proscar) 5 mg PO DAILY [facility] Last Admin: 01/16/18 10:15 Dose: Not Given Furosemide (Lasix) 40 mg IVP BID [facility] Last Admin: 01/15/18 18:00 Dose: Not Given Glucagon (Glucagen Diagnostic Kit) 0 mg IM STAT PRN; Protocol PRN Reason: Hypoglycemia Protocol Insulin Aspart (Novolog) 0 unit SC ACHS [facility]; Protocol Last Admin: 01/16/18 21:13 Dose: Not Given Rosuvastatin Calcium (Crestor) 5 mg PO HS [facility] Last Admin: 01/16/18 21:41 Dose: 5 mg Tamsulosin HCl (Flomax) 0.4 mg PO DAILY [facility] Last Admin: 01/16/18 10:15 Dose: Not Given - Labs Labs: 01/16/18 05:48 01/16/18 05:49 PT 16.0 SECONDS (9.7-12.2) H 01/05/18 20:09 INR 1.5 01/05/18 20:09 APTT 55 SECONDS (21-34) H 01/15/18 06:55 Assessment and Plan (1) Acute renal failure Status: Acute (2) CKD (chronic kidney disease) Status: Chronic (3) Heart failure, systolic, with acute decompensation Status: Acute (4) NSTEMI (non-ST elevated myocardial infarction) Status: Acute Attending/Attestation - Attestation I have personally seen and examined this patient.: Yes I have fully participated in the care of the patient.: Yes I have reviewed all pertinent clinical information, including history, physical exam and plan: Yes Notes (Text): Patient seen and examined; I agree with the resident's note as above with the following additions/edits: Patient with htn, dm, CAD s/p CABG, CHF w/ systolic dysfunction and CKD, admitted with NSTEMI, acute decompensated CHF and TRAVIS requiring HD; Now non-oliguric renal failure with rate in rise of serum creatinine decreasing which may signify renal recovery is close; otherwise stable volume and electrolyte status; dialyzing today mainly for clearance; plan is to hold HD from tomorrow and monitor; need to see where creatinine settles at as patient has underlying advanced CKD with nephrotic range proteinuria; will consider renal biopsy if ASA/plavix can be held for a few days (will discuss with cardio); BP controlled, not currently on any anti-htn or CHF meds; will defer to cardio regarding adding B-blockers; avoid IVAN inhibitor/ARB for now; -avoid nephrotoxic agents -will restart PO diuretic tomorrow;
[2018-01-16] MEDS ORDERED: ceFAZolin 1 gm FROZEN Premix 1 GM/50 ML ML IVPB ONE (14:51)
[2018-01-16] MEDS ORDERED: Lidocaine 2% PF (10 ml) Amp ONE (14:52)
--- NOTE | 2018-01-16 15:29 | RAD ---
Date of service: 01/16/2018 HISTORY: Right IJ catheter position. COMPARISON: 01/15/2018 FINDINGS: LUNGS: One of the two views today a apical lordotic. Lung volumes are shallow. Bilateral pleural effusions increased since prior exam. Bibasilar compressive atelectasis (and/or infiltrate a consideration. PLEURA: Bilateral pleural effusions. No gross current pneumothorax appreciated. If there is any clinical concern for that consider upright view in expiration. CARDIOVASCULAR: Cardiomegaly. Central pulmonary venous congestion. Status post CABG Right internal jugular vein catheter tip projects near cavoatrial junction. OSSEOUS STRUCTURES: Thoraco lumbar spondylosis. VISUALIZED UPPER ABDOMEN: Normal. OTHER FINDINGS: None. IMPRESSION: Right internal jugular catheter central line tip caval atrial junction. No gross pneumothorax. If clinical concern for a pneumothorax exists, consider upright chest x-ray in expiration. Bilateral pleural effusions increased since prior exam. Oval bibasilar compressive atelectasis. Concomitant underlying infiltrates here not excluded. Cardiomegaly and mild central pulmonary venous congestion-congestion slightly increased since prior exam. Comments: Study marked for PA review .
--- NOTE | 2018-01-17 06:08 | OP ---
PROCEDURE DATE: 01/16/2018 OPERATION: [employer] LINQ Reveal, LNQ11, serial number [id number], loop recorder insertion. PERFORMING PHYSICIAN: Travis Mi MD REFERRING PHYSICIAN: Ector Dumont MD PREPROCEDURE DIAGNOSES: Dizziness and bradycardia, now resolved. POSTPROCEDURE DIAGNOSES: Dizziness and bradycardia, now resolved. HISTORY: The patient is a very pleasant 67-year-old male with a past medical history of coronary artery disease, inferior wall NV on 11/25/2017, occluded RCA and LAD disease who underwent Impella insertion and two vessel CABG ultimately on 11/28/2017 at [facility], diabetes, severe COPD, prolonged hospital course at that time with paroxysmal fibrillation who was ultimately discharged from [facility] on 12/20/2017 who then presented to [facility] on 01/05/2018 with near syncope and some shortness of breath and worsening renal failure. On his admission to [facility], he was found to be in sinus rhythm with 2:1 AV block and narrow complex QRS. Over the course of the next several days, he ended up developing clear Wenckebach and then developed antegrade conduction. Initially pacing was entertained but as the patient's conduction improved, it was thought that we would instead perform coach builder surveillance monitoring with a loop recorder. As such, he presented today for loop recorder insertion. RISKS: The risks of the procedure including bleeding and infection were discussed at length with the patient. He understands and is willing to proceed. PROCEDURE DETAILS: After informed consent was obtained, the patient was brought to the EP laboratory. After sterile prep and drape, an area just two fingerbreadth lateral to the left of the fourth intercostal space was identified: This area was infiltrated with 1% lidocaine. The Perceptual [employer] incision tool was utilized and the Per[employer] plunger was used to insert the loop recorder. The incision was covered until manual pressure was used to achieve hemostasis. The incision was covered with Steri-Strips and then with a Telfa and Tegaderm. IMPRESSION: Successful Med[employer]onic LINQ loop recorder insertion. POSTDEVICE INSTRUCTIONS: 1. Take off dressing in three days. 2. Do not get dressing wet for three days directly. 3. Steri-Strips will fall off naturally in two weeks. Do not peel them off yourself. 4. Please follow up in my office at [facility], in two to three weeks and call [phone] to schedule an appointment. Travis Mi MD
[2018-01-17 07:06] LABS: ALB/GLOB RATIO 1.1 (1.0-2.1); ALBUMIN 3.4 g/dL (3.5-5.0); CALCIUM 8.8 mg/dl (8.6-10.4)
[2018-01-17 07:13] LABS: BASO % 0.5 % (0.0-2.0); EOS # 0.1 K/uL (0.0-0.7); EOS % 0.9 % (0.0-4.0); HEMOGLOBIN 9.2 g/dL (12.0-18.0); LYMPH # 0.9 K/uL (1.0-4.3); LYMPH % 13.1 % (20.0-40.0); MEAN CELL VOLUME 88.3 fL (80.0-94.0); MEAN CORPUSCULAR HEMOGLOBIN 28.5 pg (27.0-31.0); MEAN CORPUSCULAR HGB CONC 32.3 g/dL (33.0-37.0); MEAN PLATELET VOLUME 8.5 fL (7.2-11.7); MONO # 0.7 K/uL (0.0-0.8); MONO % 9.6 % (0.0-10.0); NEUT # 5.3 K/uL (1.8-7.0); NEUT % 75.9 % (50.0-75.0); NRBC % 0.1 % (0.0-2.0); RBC 3.23 Mil/uL (4.40-5.90); RED CELL DISTRIBUTION WIDTH 16.3 % (11.5-14.5); WHITE BLOOD COUNT 6.9 K/uL (4.8-10.8)
[2018-01-17] MEDS: (Novolog) Insulin Aspart, Recombinant 100 u/ml 10 ml vial SC SCH ×4 (08:17→21:43)
--- NOTE | 2018-01-17 09:53 | CP.PCM.PN ---
<Harley Phillips - Last Filed: 01/17/18 15:13> Subjective - Date & Time of Evaluation Date of Evaluation: 01/17/18 Time of Evaluation: 07:30 - Subjective Subjective: Nephrology progress note for Dr Powers: Pt seen and examined at bedside. No acute events overnight. Patient had a loop recorder placed yesterday. Last HD was yesterday. Denies any caba, dizziness, fever, chills, sob, cp, abd pain, n/v/d. 12 Point ROS performed and neg other than stated above. Objective - Vital Signs/Intake and Output Vital Signs (last 24 hours): Temp Pulse Resp BP Pulse Ox 98.1 F 87 20 111/68 96 01/17/18 08:00 01/17/18 08:00 01/17/18 08:00 01/17/18 08:00 01/17/18 08:00 Intake and Output: 01/17/18 01/17/18 06:59 18:59 Intake Total 120 Balance 120 - Medications Medications: Current Medications Aspirin (Aspirin Chewable) 81 mg PO DAILY [facility] Last Admin: 01/15/18 15:00 Dose: 81 mg Clopidogrel Bisulfate (Plavix) 75 mg PO DAILY [facility] Last Admin: 01/15/18 15:00 Dose: 75 mg Dextrose (Dextrose 50% Inj) 0 ml IV STAT PRN; Protocol PRN Reason: Hypoglycemia Protocol Dextrose (Glutose 15) 0 gm PO ONCE PRN; Protocol PRN Reason: Hypoglycemia Protocol Famotidine (Pepcid) 20 mg PO DAILY [facility] Last Admin: 01/16/18 10:15 Dose: Not Given Finasteride (Proscar) 5 mg PO DAILY [facility] Last Admin: 01/16/18 10:15 Dose: Not Given Furosemide (Lasix) 40 mg IVP BID [facility] Last Admin: 01/15/18 18:00 Dose: Not Given Glucagon (Glucagen Diagnostic Kit) 0 mg IM STAT PRN; Protocol PRN Reason: Hypoglycemia Protocol Insulin Aspart (Novolog) 0 unit SC ACHS [facility]; Protocol Last Admin: 01/17/18 08:17 Dose: 2 units Rosuvastatin Calcium (Crestor) 5 mg PO HS [facility] Last Admin: 01/16/18 21:41 Dose: 5 mg Tamsulosin HCl (Flomax) 0.4 mg PO DAILY [facility] Last Admin: 01/16/18 10:15 Dose: Not Given - Labs Labs: 01/17/18 06:33 01/17/18 06:33 PT 16.0 SECONDS (9.7-12.2) H 01/05/18 20:09 INR 1.5 01/05/18 20:09 APTT 55 SECONDS (21-34) H 01/15/18 06:55 - Constitutional Appears: No Acute Distress - Head Exam Head Exam: ATRAUMATIC, NORMOCEPHALIC - Eye Exam Eye Exam: EOMI - ENT Exam ENT Exam: Mucous Membranes Moist - Respiratory Exam Respiratory Exam: Clear to Ausculation Bilateral. absent: Rales, Wheezes - Cardiovascular Exam Cardiovascular Exam: REGULAR RHYTHM, +S1, +S2 - GI/Abdominal Exam GI & Abdominal Exam: Soft. absent: Distended, Tenderness - Extremities Exam Extremities Exam: absent: Calf Tenderness - Neurological Exam Neurological Exam: Alert, Awake, CN II-XII Intact - Skin Skin Exam: Dry, Intact Assessment and Plan - Assessment and Plan (Free Text) Assessment: 67 year old male with past medical history of htn, dm, CAD s/p CABG, CHF w/ systolic dysfunction and CKD, admitted with NSTEMI, acute decompensated CHF and TRAVIS requiring HD. -HD was done yesterday, plan is to hold HD today and monitor -Asa and plavix on hold at this time -Will monitor where creatinine settles at as patient has underlying advanced CKD with nephrotic range proteinuria; will consider renal biopsy if ASA/plavix can be held for a few days -BP controlled, not currently on any anti-htn or CHF meds -f/u cardio regarding adding B-blockers; avoid IVAN inhibitor/ARB for now -avoid nephrotoxic agents (NSAIDS) -will consider starting PO diuretic today -Monitor I and O Case and plan was reviewed and discussed in detail with Dr Powers. <Maynor Powers - Last Filed: 01/18/18 08:48> Objective - Vital Signs/Intake and Output Vital Signs (last 24 hours): Temp Pulse Resp BP Pulse Ox 98.5 F 88 20 109/66 96 01/18/18 08:00 01/18/18 08:00 01/18/18 08:00 01/18/18 08:00 01/18/18 08:00 Intake and Output: 01/18/18 01/18/18 06:59 18:59 Intake Total 0 Output Total 600 Balance -600 - Medications Medications: Current Medications Aspirin (Aspirin Chewable) 81 mg PO DAILY [facility] Last Admin: 01/15/18 15:00 Dose: 81 mg Clopidogrel Bisulfate (Plavix) 75 mg PO DAILY [facility] Last Admin: 01/15/18 15:00 Dose: 75 mg Dextrose (Dextrose 50% Inj) 0 ml IV STAT PRN; Protocol PRN Reason: Hypoglycemia Protocol Dextrose (Glutose 15) 0 gm PO ONCE PRN; Protocol PRN Reason: Hypoglycemia Protocol Famotidine (Pepcid) 20 mg PO DAILY [facility] Last Admin: 01/17/18 10:17 Dose: 20 mg Finasteride (Proscar) 5 mg PO DAILY [facility] Last Admin: 01/17/18 10:17 Dose: 5 mg Glucagon (Glucagen Diagnostic Kit) 0 mg IM STAT PRN; Protocol PRN Reason: Hypoglycemia Protocol Insulin Aspart (Novolog) 0 unit SC ACHS [facility]; Protocol Last Admin: 01/17/18 21:43 Dose: Not Given Rosuvastatin Calcium (Crestor) 5 mg PO HS [facility] Last Admin: 01/17/18 22:07 Dose: 5 mg Tamsulosin HCl (Flomax) 0.4 mg PO DAILY [facility] Last Admin: 01/17/18 10:17 Dose: 0.4 mg - Labs Labs: 01/18/18 08:00 01/17/18 06:33 PT 16.0 SECONDS (9.7-12.2) H 01/05/18 20:09 INR 1.5 01/05/18 20:09 APTT 55 SECONDS (21-34) H 01/15/18 06:55 Assessment and Plan (1) Acute renal failure Status: Acute (2) CKD (chronic kidney disease) Status: Chronic (3) Heart failure, systolic, with acute decompensation Status: Acute (4) NSTEMI (non-ST elevated myocardial infarction) Status: Acute Attending/Attestation - Attestation I have personally seen and examined this patient.: Yes I have fully participated in the care of the patient.: Yes I have reviewed all pertinent clinical information, including history, physical exam and plan: Yes Notes (Text): Patient seen and examined; I agree with the resident's note as above with the following additions/edits: Patient with htn, dm, CAD s/p CABG, CHF w/ systolic dysfunction and CKD, admitted with NSTEMI, acute decompensated CHF and TRAVIS requiring HD; Last HD yesterday; accurate UO measurement not available after hernandez discontinued; patient being instructed to urinate only in urinal; nursing staff instructed on need for strict I/O; Otherwise stable volume and electrolyte status; no evidence of CHF exacerbation currently; had been non-oliguric lately although currently off diuretics; will look for rise in serum creatinine tomorrow and dialyze if still inadequate clearance; concern for underlying nephrotic syndrome in addition to ATN; unclear what new baseline creatinine will be; -Will plan for renal biopsy perhaps as outpatient due to recent NSTEMI; -Continue ASA/plavix per cardio; -Avoid nephrotoxic agents;
--- NOTE | 2018-01-17 14:21 | CP.PCM.PN ---
Subjective - Date & Time of Evaluation Date of Evaluation: 01/17/18 Time of Evaluation: 08:00 - Subjective Subjective: Cardiology Progress Note Alison Erickson, PGY1 note for Dr. Dumont Patient seen and examined at bedside this morning. No complaints at this time. Received loop recorder yesterday. S/p HD yesterday. Possible discharge tomorrow. Objective - Vital Signs/Intake and Output Vital Signs (last 24 hours): Temp Pulse Resp BP Pulse Ox 98.1 F 87 20 111/68 96 01/17/18 08:00 01/17/18 08:00 01/17/18 08:00 01/17/18 08:00 01/17/18 08:00 Intake and Output: 01/17/18 01/17/18 06:59 18:59 Intake Total 120 Balance 120 - Medications Medications: Current Medications Aspirin (Aspirin Chewable) 81 mg PO DAILY [facility] Last Admin: 01/15/18 15:00 Dose: 81 mg Clopidogrel Bisulfate (Plavix) 75 mg PO DAILY [facility] Last Admin: 01/15/18 15:00 Dose: 75 mg Dextrose (Dextrose 50% Inj) 0 ml IV STAT PRN; Protocol PRN Reason: Hypoglycemia Protocol Dextrose (Glutose 15) 0 gm PO ONCE PRN; Protocol PRN Reason: Hypoglycemia Protocol Famotidine (Pepcid) 20 mg PO DAILY [facility] Last Admin: 01/17/18 10:17 Dose: 20 mg Finasteride (Proscar) 5 mg PO DAILY [facility] Last Admin: 01/17/18 10:17 Dose: 5 mg Glucagon (Glucagen Diagnostic Kit) 0 mg IM STAT PRN; Protocol PRN Reason: Hypoglycemia Protocol Insulin Aspart (Novolog) 0 unit SC [facility]; Protocol Last Admin: 01/17/18 11:56 Dose: Not Given Rosuvastatin Calcium (Crestor) 5 mg PO HS [facility] Last Admin: 01/16/18 21:41 Dose: 5 mg Tamsulosin HCl (Flomax) 0.4 mg PO DAILY [facility] Last Admin: 01/17/18 10:17 Dose: 0.4 mg - Labs Labs: 01/17/18 06:33 01/17/18 06:33 PT 16.0 SECONDS (9.7-12.2) H 01/05/18 20:09 INR 1.5 01/05/18 20:09 APTT 55 SECONDS (21-34) H 01/15/18 06:55 - Constitutional Appears: No Acute Distress - Head Exam Head Exam: ATRAUMATIC - Eye Exam Eye Exam: EOMI Pupil Exam: PERRL - Respiratory Exam Respiratory Exam: Clear to Ausculation Bilateral. absent: Respiratory Distress - Cardiovascular Exam Cardiovascular Exam: REGULAR RHYTHM, +S1, +S2 - GI/Abdominal Exam GI & Abdominal Exam: Normal Bowel Sounds. absent: Guarding, Rigid - Neurological Exam Neurological Exam: Alert, Awake - Skin Skin Exam: Normal Color, Warm Assessment and Plan - Assessment and Plan (Free Text) Assessment: This is a 67 year old male with PMH of CAD s/p CABG 11/2017 presenting to hospital for management of acute on chronic systolic heart failure. Possible discharge tomorrow Plan: Acute on chronic systolic heart failure -loop recorder placed yesterday -ok to start low dose beta rosa -s/p cardiac cath on 01/15 -showed severe red devil triple vessel disease, patent grafts, ischemic cardiomyopathy, EF of 45% -continue with hemodialysis as needed, aggressive medical management. Intervention not indicated at this time -continue plavix, asa, crestor -continue lasix -CXR shows findings consistent with CHF and pleural effusions CKD -received HD yesterday -Cr is improved today, 3.3 Case discussed with attending, further recommendations per Dr. Dumont
--- NOTE | 2018-01-17 17:21 | CP.PCM.PN ---
Subjective - Date & Time of Evaluation Date of Evaluation: 01/17/18 Time of Evaluation: 09:20 - Subjective Subjective: Medicine Progress Note for Hospitalist Service Pt seen and examined at bedside this am. Denies any acute complaints, observed oob to chair in no acute distress. No acute events overnight. S/p cardiac cath on 01/15, loop recorder placement on 01/16. Denies headache, fever, chills, chest pain, sob, n/v/d/c, abd pain, urinary complaints, or other symptoms. Objective - Vital Signs/Intake and Output Vital Signs (last 24 hours): Temp Pulse Resp BP Pulse Ox 98.1 F 86 20 120/71 95 01/17/18 16:33 01/17/18 16:33 01/17/18 16:33 01/17/18 16:33 01/17/18 16:33 Intake and Output: 01/17/18 01/17/18 06:59 18:59 Intake Total 120 Balance 120 - Medications Medications: Current Medications Aspirin (Aspirin Chewable) 81 mg PO DAILY [facility] Last Admin: 01/15/18 15:00 Dose: 81 mg Clopidogrel Bisulfate (Plavix) 75 mg PO DAILY [facility] Last Admin: 01/15/18 15:00 Dose: 75 mg Dextrose (Dextrose 50% Inj) 0 ml IV STAT PRN; Protocol PRN Reason: Hypoglycemia Protocol Dextrose (Glutose 15) 0 gm PO ONCE PRN; Protocol PRN Reason: Hypoglycemia Protocol Famotidine (Pepcid) 20 mg PO DAILY [facility] Last Admin: 01/17/18 10:17 Dose: 20 mg Finasteride (Proscar) 5 mg PO DAILY [facility] Last Admin: 01/17/18 10:17 Dose: 5 mg Glucagon (Glucagen Diagnostic Kit) 0 mg IM STAT PRN; Protocol PRN Reason: Hypoglycemia Protocol Insulin Aspart (Novolog) 0 unit SC [facility]S [facility]; Protocol Last Admin: 01/17/18 11:56 Dose: Not Given Rosuvastatin Calcium (Crestor) 5 mg PO HS [facility] Last Admin: 01/16/18 21:41 Dose: 5 mg Tamsulosin HCl (Flomax) 0.4 mg PO DAILY [facility] Last Admin: 01/17/18 10:17 Dose: 0.4 mg - Labs Labs: 01/17/18 06:33 01/17/18 06:33 PT 16.0 SECONDS (9.7-12.2) H 01/05/18 20:09 INR 1.5 01/05/18 20:09 APTT 55 SECONDS (21-34) H 01/15/18 06:55 - Constitutional Appears: Non-toxic, No Acute Distress - Head Exam Head Exam: ATRAUMATIC, NORMOCEPHALIC - Eye Exam Eye Exam: EOMI, Normal appearance, PERRL - ENT Exam ENT Exam: Mucous Membranes Moist - Respiratory Exam Respiratory Exam: Clear to Ausculation Bilateral, NORMAL BREATHING PATTERN. absent: Rales, Rhonchi, Wheezes - Cardiovascular Exam Cardiovascular Exam: REGULAR RHYTHM, +S1, +S2. absent: Gallop, Rubs, Murmur - GI/Abdominal Exam GI & Abdominal Exam: Soft, Normal Bowel Sounds. absent: Distended, Firm, Gua rding, Rigid, Tenderness, Organomegaly, Rebound - Extremities Exam Extremities Exam: Full ROM, Normal Capillary Refill Additional comments: Improving 2+ b/l pitting edema in feet - Neurological Exam Neurological Exam: Alert, Awake, CN II-XII Intact, Oriented x3 - Psychiatric Exam Psychiatric exam: Normal Affect, Normal Mood - Skin Skin Exam: Dry, Intact, Normal Color, Warm Assessment and Plan - Assessment and Plan (Free Text) Assessment: 67M PMhx CAD w/ NSTEMI here in 11/25 and s/p CABG at [place] within last month, DM2, admitted to ICU after c/o 3 days of shortness of breath for CHF and pulmonary edema. S/p downgrade to tele floor. Plan: [id number] CHF No acute complaints today, improving clinically, sob improved S/p hemodialysis sessions x4 while inpatient Continue to monitor output EKG demonstrated 1st degree heart block and bradycardia with no acute ST-T wave changes Echo: EF 34%, Impaired systolic function Cardio consulted (Dr. Delgado), recs appreciated Lasix 40 mg IVP bid [id number] Renal Failure Today's output as mentioned above, continue to trend I's/O's BUN CR 63/5.3 today Fluid restriction and dialysis as per Dr. Powers (Nephro) Pt has hx of non-compliance with DM tx/chronic renal disease Avoid nephrotoxic drugs May need renal bx, f/u nephro recs NSTEMI, recent CABG, elevated troponins S/p cardiac cath Mon 01/15: demonstrated severe coquille triple vessel disease, patent grafts, ischemic cardiomyopathy, EF 45% C/w ASA, Plavix C/w Rosuvastatin 5 mg PO hs Recently went to [place] for CABG in past month and was discharged S/p loop recorder placement 01/16 with EP: pt can f/u with Dr. Mi outpatient within 2-3 weeks of discharge DM Novolog sliding scale Fingersticks achs Hypoglycemic protocol Continue to monitor Elevated Lactate + R leg s/p vein harvest for CABG, R/o infection S/p 1x dose vanco in ED Cipro 400 mg IVPB daily d/c'd Blood and urine cxs demonstrated no growth Wound cx 01/06 showed Proteus mirabilis, Klebsiella pneumoniae, Strep pneumo, En terococcus faecalis Procalcitonin elevated at 1.18 on 01/06 Diet: renal DVT ppx: Heparin GI ppx: Pepcid PT/OT eval and treat Social work consulted, recs appreciated Pt seen, examined with, and plan discussed with Dr. Lynn, attending physician. Mateo Chaidez DO PGY-1, [employer] Pager #[phone]
[2018-01-18 08:18] LABS: BASO % 0.4 % (0.0-2.0); EOS # 0.1 K/uL (0.0-0.7); HEMOGLOBIN 9.9 g/dL (12.0-18.0); LYMPH # 1.1 K/uL (1.0-4.3); LYMPH % 15.4 % (20.0-40.0); MEAN CELL VOLUME 87.6 fL (80.0-94.0); MEAN CORPUSCULAR HEMOGLOBIN 28.3 pg (27.0-31.0); MEAN CORPUSCULAR HGB CONC 32.3 g/dL (33.0-37.0); MEAN PLATELET VOLUME 8.4 fL (7.2-11.7); MONO # 0.7 K/uL (0.0-0.8); NEUT # 5.5 K/uL (1.8-7.0); NEUT % 74.2 % (50.0-75.0); RBC 3.51 Mil/uL (4.40-5.90); RED CELL DISTRIBUTION WIDTH 16.7 % (11.5-14.5); WHITE BLOOD COUNT 7.5 K/uL (4.8-10.8)
[2018-01-18 08:54] LABS: ALB/GLOB RATIO 1.1 (1.0-2.1); ALBUMIN 3.6 g/dL (3.5-5.0); CALCIUM 9.1 mg/dl (8.6-10.4)
[2018-01-18] MEDS: (Novolog) Insulin Aspart, Recombinant 100 u/ml 10 ml vial SC SCH ×4 (10:40→21:29)
[2018-01-18 11:03] LABS: BASO % 0.5 % (0.0-2.0); EOS # 0.1 K/uL (0.0-0.7); EOS % 0.9 % (0.0-4.0); HEMOGLOBIN 9.2 g/dL (12.0-18.0); LYMPH # 0.8 K/uL (1.0-4.3); LYMPH % 11.2 % (20.0-40.0); MEAN CELL VOLUME 87.8 fL (80.0-94.0); MEAN CORPUSCULAR HEMOGLOBIN 28.8 pg (27.0-31.0); MEAN CORPUSCULAR HGB CONC 32.8 g/dL (33.0-37.0); MEAN PLATELET VOLUME 8.5 fL (7.2-11.7); MONO # 0.6 K/uL (0.0-0.8); MONO % 9.2 % (0.0-10.0); NEUT # 5.2 K/uL (1.8-7.0); NEUT % 78.2 % (50.0-75.0); NRBC % 0.1 % (0.0-2.0); RBC 3.21 Mil/uL (4.40-5.90); RED CELL DISTRIBUTION WIDTH 16.3 % (11.5-14.5); WHITE BLOOD COUNT 6.7 K/uL (4.8-10.8)
--- NOTE | 2018-01-18 11:30 | CP.PCM.PN ---
<Harley Phillips - Last Filed: 01/18/18 13:59> Subjective - Date & Time of Evaluation Date of Evaluation: 01/18/18 Time of Evaluation: 08:15 - Subjective Subjective: Nephrology progress note for Dr Powers: Pt seen and examined at bedside. No acute events overnight. States that he is feeling well.. Last HD two days ago. Denies any caba, dizziness, fever, chills, sob, cp, abd pain, n/v/d. 12 Point ROS performed and neg other than stated above. Objective - Vital Signs/Intake and Output Vital Signs (last 24 hours): Temp Pulse Resp BP Pulse Ox 98.5 F 88 20 109/66 96 01/18/18 08:00 01/18/18 08:00 01/18/18 08:00 01/18/18 08:00 01/18/18 08:00 Intake and Output: 01/18/18 01/18/18 06:59 18:59 Intake Total 0 Output Total 600 Balance -600 - Medications Medications: Current Medications Aspirin (Aspirin Chewable) 81 mg PO DAILY [facility] Last Admin: 01/15/18 15:00 Dose: 81 mg Carvedilol (Coreg) 3.125 mg PO BID [facility] Clopidogrel Bisulfate (Plavix) 75 mg PO DAILY [facility] Last Admin: 01/15/18 15:00 Dose: 75 mg Dextrose (Dextrose 50% Inj) 0 ml IV STAT PRN; Protocol PRN Reason: Hypoglycemia Protocol Dextrose (Glutose 15) 0 gm PO ONCE PRN; Protocol PRN Reason: Hypoglycemia Protocol Finasteride (Proscar) 5 mg PO DAILY [facility] Last Admin: 01/17/18 10:17 Dose: 5 mg Glucagon (Glucagen Diagnostic Kit) 0 mg IM STAT PRN; Protocol PRN Reason: Hypoglycemia Protocol Insulin Aspart (Novolog) 0 unit SC [facility]; Protocol Last Admin: 01/18/18 10:40 Dose: Not Given Rosuvastatin Calcium (Crestor) 5 mg PO HS [facility] Last Admin: 01/17/18 22:07 Dose: 5 mg Tamsulosin HCl (Flomax) 0.4 mg PO DAILY [facility] Last Admin: 01/17/18 10:17 Dose: 0.4 mg - Labs Labs: 01/18/18 10:47 01/18/18 08:00 PT 16.0 SECONDS (9.7-12.2) H 09/28/18 20:09 INR 1.5 01/05/18 20:09 APTT 55 SECONDS (21-34) H 01/15/18 06:55 - Constitutional Appears: No Acute Distress - Head Exam Head Exam: ATRAUMATIC, NORMOCEPHALIC - Eye Exam Eye Exam: EOMI - ENT Exam ENT Exam: Mucous Membranes Moist - Respiratory Exam Respiratory Exam: Clear to Ausculation Bilateral. absent: Rales, Wheezes - Cardiovascular Exam Cardiovascular Exam: RRR, +S1, +S2 - GI/Abdominal Exam GI & Abdominal Exam: Soft. absent: Distended, Tenderness - Extremities Exam Extremities Exam: absent: Calf Tenderness - Neurological Exam Neurological Exam: Alert, Awake - Skin Skin Exam: Dry, Intact Additional comments: dressing covering loop recorder c/d/i Assessment and Plan - Assessment and Plan (Free Text) Assessment: 67 year old male with past medical history of htn, dm, CAD s/p CABG, CHF w/ systolic dysfunction and CKD, admitted with NSTEMI, acute decompensated CHF and TRAVIS requiring HD. - Last HD was 2 days ago , Cr of 3.3 today; concern for underlying nephrotic syndrome in addition to ATN; unclear what new baseline creatinine will be -Asa and plavix resumed -BP controlled, not currently on any anti-htn or CHF meds -f/u cardio regarding adding B-blockers; avoid IVAN inhibitor/ARB for now -avoid nephrotoxic agents (NSAIDS) -will consider starting PO diuretic today -Monitor I and O -Will plan for renal biopsy perhaps as outpatient due to recent NSTEMI; Case and plan was reviewed and discussed in detail with Dr Powers. <Maynor Powers - Last Filed: 01/19/18 08:03> Objective - Vital Signs/Intake and Output Vital Signs (last 24 hours): Temp Pulse Resp BP Pulse Ox 98.0 F 90 20 116/67 95 01/18/18 23:54 01/18/18 23:54 01/18/18 23:54 01/18/18 23:54 01/18/18 23:54 Intake and Output: 01/19/18 01/19/18 06:59 18:59 Intake Total 30 Output Total 650 Balance -620 - Medications Medications: Current Medications Aspirin (Aspirin Chewable) 81 mg PO DAILY [facility] Last Admin: 01/18/18 12:01 Dose: 81 mg Carvedilol (Coreg) 3.125 mg PO BID [facility] Last Admin: 01/18/18 17:33 Dose: 3.125 mg Clopidogrel Bisulfate (Plavix) 75 mg PO DAILY [facility] Last Admin: 01/18/18 11:59 Dose: 75 mg Dextrose (Dextrose 50% Inj) 0 ml IV STAT PRN; Protocol PRN Reason: Hypoglycemia Protocol Dextrose (Glutose 15) 0 gm PO ONCE PRN; Protocol PRN Reason: Hypoglycemia Protocol Finasteride (Proscar) 5 mg PO DAILY [facility] Last Admin: 01/18/18 11:59 Dose: 5 mg Glucagon (Glucagen Diagnostic Kit) 0 mg IM STAT PRN; Protocol PRN Reason: Hypoglycemia Protocol Insulin Aspart (Novolog) 0 unit SC [facility]; Protocol Last Admin: 01/18/18 21:29 Dose: Not Given Rosuvastatin Calcium (Crestor) 5 mg PO HS [facility] Last Admin: 01/18/18 21:55 Dose: 5 mg Tamsulosin HCl (Flomax) 0.4 mg PO DAILY [facility] Last Admin: 01/18/18 11:59 Dose: 0.4 mg - Labs Labs: 01/19/18 07:05 01/19/18 07:05 PT 16.0 SECONDS (9.7-12.2) H 01/05/18 20:09 INR 1.5 01/05/18 20:09 APTT 55 SECONDS (21-34) H 01/15/18 06:55 Assessment and Plan (1) Acute renal failure Status: Acute (2) CKD (chronic kidney disease) Status: Chronic (3) Heart failure, systolic, with acute decompensation Status: Acute (4) NSTEMI (non-ST elevated myocardial infarction) Status: Acute Attending/Attestation - Attestation I have personally seen and examined this patient.: Yes I have fully participated in the care of the patient.: Yes I have reviewed all pertinent clinical information, including history, physical exam and plan: Yes Notes (Text): Patient seen and examined; I agree with the resident's note as above with the following additions/edits: Patient with htn, dm, CAD s/p CABG, CHF w/ systolic dysfunction and CKD, admitted with NSTEMI, acute decompensated CHF and TRAVIS requiring HD; Off HD yesterday with serum creatinine at plateau today signifying patient is in renal recovery; thought to be ATN in the setting of severe hypotension/bradycardia along with cardiorenal component; however, also with underlying CKD and nephrotic range proteinuria on spot prot/creat ratio; interestingly, repeat UA showing no albuminuria; cannot predict weather patient will recover to baseline renal function or have significant residual injury from ATN; Otherwise stable volume and electrolyte status; unfortunately, accurate I/O unavailable but doesn't appear to be polyuric; holding diuretics for now but may need to resume soon considering CHF status; Will need renal biopsy at some point but holding off for now in the setting of NSTEMI; -Will plan on obtaining 24 urine for CrCl (waiting to see if renal function improves some more); -Obtaining 24 hr urine for protein electrophoresis (due to discrepancy between UA and spot ratio); -Continue to avoid nephrotoxic agents; -B-blockers per cardio; hold off on ARB/IVAN inhibitor for now;
[2018-01-18 11:31] LABS: ALBUMIN 3.3 g/dL (3.5-5.0); CALCIUM 8.8 mg/dl (8.6-10.4)
--- NOTE | 2018-01-18 18:07 | CP.PCM.PN ---
<Mateo Chaidez - Last Filed: 01/18/18 18:04> Subjective - Date & Time of Evaluation Date of Evaluation: 01/18/18 Time of Evaluation: 13:30 - Subjective Subjective: Medicine Progress Note for Hospitalist Service Pt seen and examined at bedside this am. Denies any acute complaints, observed ambulating out of bed. No acute events reported overnight. 12-point ROS obtained, otherwise negative as per patient. Objective - Vital Signs/Intake and Output Vital Signs (last 24 hours): Temp Pulse Resp BP Pulse Ox 97.9 F 99 H 20 138/84 98 01/18/18 15:40 01/18/18 17:32 01/18/18 15:40 01/18/18 17:32 01/18/18 15:40 Intake and Output: 01/18/18 01/18/18 06:59 18:59 Intake Total 0 Output Total 600 Balance -600 - Medications Medications: Current Medications Aspirin (Aspirin Chewable) 81 mg PO DAILY [facility] Last Admin: 01/18/18 12:01 Dose: 81 mg Carvedilol (Coreg) 3.125 mg PO BID [facility] Last Admin: 01/18/18 17:33 Dose: 3.125 mg Clopidogrel Bisulfate (Plavix) 75 mg PO DAILY [facility] Last Admin: 01/18/18 11:59 Dose: 75 mg Dextrose (Dextrose 50% Inj) 0 ml IV STAT PRN; Protocol PRN Reason: Hypoglycemia Protocol Dextrose (Glutose 15) 0 gm PO ONCE PRN; Protocol PRN Reason: Hypoglycemia Protocol Finasteride (Proscar) 5 mg PO DAILY [facility] Last Admin: 01/18/18 11:59 Dose: 5 mg Glucagon (Glucagen Diagnostic Kit) 0 mg IM STAT PRN; Protocol PRN Reason: Hypoglycemia Protocol Insulin Aspart (Novolog) 0 unit SC [facility]; Protocol Last Admin: 01/18/18 17:34 Dose: 3 units Rosuvastatin Calcium (Crestor) 5 mg PO HS [facility] Last Admin: 01/17/18 22:07 Dose: 5 mg Tamsulosin HCl (Flomax) 0.4 mg PO DAILY [facility] Last Admin: 01/18/18 11:59 Dose: 0.4 mg - Labs Labs: 01/18/18 10:47 01/18/18 10:47 PT 16.0 SECONDS (9.7-12.2) H 01/05/18 20:09 INR 1.5 01/05/18 20:09 APTT 55 SECONDS (21-34) H 01/15/18 06:55 - Constitutional Appears: Non-toxic, No Acute Distress, Chronically Ill - Head Exam Head Exam: ATRAUMATIC, NORMOCEPHALIC - Eye Exam Eye Exam: EOMI, Normal appearance, PERRL - ENT Exam ENT Exam: Mucous Membranes Moist - Respiratory Exam Respiratory Exam: Clear to Ausculation Bilateral, NORMAL BREATHING PATTERN. absent: Rales, Rhonchi, Wheezes - Cardiovascular Exam Cardiovascular Exam: REGULAR RHYTHM, +S1, +S2. absent: Gallop, Rubs, Murmur - GI/Abdominal Exam GI & Abdominal Exam: Soft, Normal Bowel Sounds. absent: Distended, Firm, Guard ing, Rigid, Tenderness, Organomegaly, Rebound - Extremities Exam Additional comments: Improving 2+ LLE pitting edema b/l - Neurological Exam Neurological Exam: Alert, Awake, CN II-XII Intact, Normal Gait, Oriented x3 - Psychiatric Exam Psychiatric exam: Normal Affect, Normal Mood - Skin Skin Exam: Dry, Intact, Normal Color, Warm Assessment and Plan - Assessment and Plan (Free Text) Assessment: 67M PMhx CAD w/ NSTEMI here in 11/25 and s/p CABG at [place] within last ghassan h, DM2, admitted to ICU after c/o 3 days of shortness of breath for CHF and pulmonary edema. S/p downgrade to tele floor. Plan: [id number] CHF No acute complaints today, improving clinically, sob improved S/p hemodialysis sessions x4 while inpatient Continue to monitor output EKG demonstrated 1st degree heart block and bradycardia with no acute ST-T wave changes Echo: EF 34%, Impaired systolic function Cardio consulted (Dr. Delgado), recs appreciated Lasix 40 mg IVP bid Coreg added today 3.125 mg PO bid, continue to monitor bps [id number] Renal Failure Today's output as mentioned above, continue to trend I's/O's BUN CR 60/3.0 today Fluid restriction and dialysis as per Dr. Powers (Nephro) Pt has hx of non-compliance with DM tx/chronic renal disease Avoid nephrotoxic drugs F/u nephro recs, will plan for renal bx outpatient due to NSTEMI hx NSTEMI, recent CABG, elevated troponins S/p cardiac cath Mon 01/15: demonstrated severe tolowa dee-ni' triple vessel disease, patent grafts, ischemic cardiomyopathy, EF 45% C/w ASA, Plavix C/w Rosuvastatin 5 mg PO hs Recently went to [place] for CABG in past month and was discharged S/p loop recorder placement 01/16 with EP: pt can f/u with Dr. Mi outpatient within 2-3 weeks of discharge DM Novolog sliding scale Fingersticks achs Hypoglycemic protocol Continue to monitor Elevated Lactate + R leg s/p vein harvest for CABG, R/o infection S/p 1x dose vanco in ED Cipro 400 mg IVPB daily d/c'd Blood and urine cxs demonstrated no growth Wound cx 01/06 showed Proteus mirabilis, Klebsiella pneumoniae, Strep pneumo, Enterococcus faecalis Procalcitonin elevated at 1.18 on 01/06 Diet: renal DVT ppx: Heparin GI ppx: Pepcid PT/OT eval and treat Social work consulted, recs appreciated Pt seen, examined with, and plan discussed with Dr. Lynn, attending physician. Mateo Chaidez DO PGY-1, [employer] Pager #[phone] <Lawanda Lynn - Last Filed: 01/20/18 18:15> Objective - Vital Signs/Intake and Output Vital Signs (last 24 hours): Temp Pulse Resp BP Pulse Ox 97.7 F 81 20 99/62 L 98 01/20/18 15:00 01/20/18 15:00 01/20/18 15:00 01/20/18 15:00 01/20/18 15:00 Intake and Output: 01/20/18 01/20/18 06:59 18:59 Intake Total 350 Balance 350 - Medications Medications: Current Medications Aspirin (Aspirin Chewable) 81 mg PO DAILY [facility] Last Admin: 01/20/18 09:25 Dose: 81 mg Carvedilol (Coreg) 3.125 mg PO BID [facility] Last Admin: 01/20/18 09:25 Dose: 3.125 mg Clopidogrel Bisulfate (Plavix) 75 mg PO DAILY [facility] Last Admin: 01/20/18 09:25 Dose: 75 mg Dextrose (Dextrose 50% Inj) 0 ml IV STAT PRN; Protocol PRN Reason: Hypoglycemia Protocol Dextrose (Glutose 15) 0 gm PO ONCE PRN; Protocol PRN Reason: Hypoglycemia Protocol Finasteride (Proscar) 5 mg PO DAILY [facility] Last Admin: 01/20/18 09:25 Dose: 5 mg Glucagon (Glucagen Diagnostic Kit) 0 mg IM STAT PRN; Protocol PRN Reason: Hypoglycemia Protocol Insulin Aspart (Novolog) 0 unit SC [facility]S [facility]; Protocol Last Admin: 01/20/18 12:43 Dose: 4 units Rosuvastatin Calcium (Crestor) 5 mg PO HS [facility] Last Admin: 01/19/18 21:11 Dose: 5 mg Tamsulosin HCl (Flomax) 0.4 mg PO DAILY [facility] Last Admin: 01/20/18 09:25 Dose: 0.4 mg - Labs Labs: 01/20/18 07:09 01/20/18 14:56 PT 16.0 SECONDS (9.7-12.2) H 01/05/18 20:09 INR 1.5 01/05/18 20:09 APTT 55 SECONDS (21-34) H 01/15/18 06:55 Attending/Attestation - Attestation I have personally seen and examined this patient.: Yes I have fully participated in the care of the patient.: Yes I have reviewed all pertinent clinical information, including history, physical exam and plan: Yes Notes (Text): SEEN AND EXAMINED BY ME D/W DR SALDANA WE WILL START ON COREG 1. ACUTE ON CHRONIC SYSTOLIC HEART FAILURE 2.NSTMI,S/P CABG,S/P CATH PATENT GRAFT 3.ACUTE ON CHRONIC RENAL FAILURE 4.NONCOMPLIANCE WITH MEDS 5.DM 6.S/P BRADYCARDIA IMPROVED,S/P LOOP RECORDER DIALYSIS PER ,URINE OUT PUT IMPROVING.LIKELY CHRONIC RENAL FAILURE S/P SHILEY CATH DISCUSSED WITH RESIDENT
[2018-01-18 21:35] LABS: URINE BACTERIA RARE (<OCC); URINE BILIRUBIN NEGATIVE (NEGATIVE); URINE BLOOD 2+ (NEGATIVE); URINE CLARITY Clear (Clear); URINE COLOR Yellow (YELLOW); URINE GLUCOSE (UA) NORMAL (Normal); URINE LEUKOCYTE ESTERASE NEG Leu/uL (Negative); URINE PROTEIN NEGATIVE (NEGATIVE); URINE UROBILINOGEN NORMAL mg/dL (0.2-1.0)
[2018-01-19 07:20] LABS: BASO % 0.7 % (0.0-2.0); EOS # 0.1 K/uL (0.0-0.7); EOS % 1.4 % (0.0-4.0); HEMOGLOBIN 9.5 g/dL (12.0-18.0); LYMPH # 0.9 K/uL (1.0-4.3); LYMPH % 14.2 % (20.0-40.0); MEAN CELL VOLUME 88.1 fL (80.0-94.0); MEAN CORPUSCULAR HEMOGLOBIN 28.6 pg (27.0-31.0); MEAN CORPUSCULAR HGB CONC 32.5 g/dL (33.0-37.0); MEAN PLATELET VOLUME 9.1 fL (7.2-11.7); MONO # 0.7 K/uL (0.0-0.8); MONO % 10.2 % (0.0-10.0); NEUT # 4.9 K/uL (1.8-7.0); NEUT % 73.5 % (50.0-75.0); RBC 3.31 Mil/uL (4.40-5.90); RED CELL DISTRIBUTION WIDTH 16.3 % (11.5-14.5); WHITE BLOOD COUNT 6.7 K/uL (4.8-10.8)
[2018-01-19 07:54] LABS: ALBUMIN 3.4 g/dL (3.5-5.0)
[2018-01-19] MEDS: (Novolog) Insulin Aspart, Recombinant 100 u/ml 10 ml vial SC SCH ×4 (08:00→21:02)
--- NOTE | 2018-01-19 09:24 | CP.PCM.PN ---
<Harley Phillips - Last Filed: 01/19/18 13:17> Subjective - Date & Time of Evaluation Date of Evaluation: 01/19/18 Time of Evaluation: 07:10 - Subjective Subjective: Nephrology progress note for Dr Powers: Pt seen and examined at bedside. No acute events overnight. No complaints. Denies any caba, dizziness, fever, chills, sob, cp, abd pain, n/v/d. 12 Point ROS performed and neg other than stated above. Objective - Vital Signs/Intake and Output Vital Signs (last 24 hours): Temp Pulse Resp BP Pulse Ox 98.4 F 84 20 114/66 95 01/19/18 07:58 01/19/18 07:58 01/19/18 07:58 01/19/18 07:58 01/19/18 07:58 Intake and Output: 01/19/18 01/19/18 06:59 18:59 Intake Total 30 Output Total 650 Balance -620 - Medications Medications: Current Medications Aspirin (Aspirin Chewable) 81 mg PO DAILY [facility] Last Admin: 01/18/18 12:01 Dose: 81 mg Carvedilol (Coreg) 3.125 mg PO BID [facility] Last Admin: 01/18/18 17:33 Dose: 3.125 mg Clopidogrel Bisulfate (Plavix) 75 mg PO DAILY [facility] Last Admin: 01/18/18 11:59 Dose: 75 mg Dextrose (Dextrose 50% Inj) 0 ml IV STAT PRN; Protocol PRN Reason: Hypoglycemia Protocol Dextrose (Glutose 15) 0 gm PO ONCE PRN; Protocol PRN Reason: Hypoglycemia Protocol Finasteride (Proscar) 5 mg PO DAILY [facility] Last Admin: 01/18/18 11:59 Dose: 5 mg Glucagon (Glucagen Diagnostic Kit) 0 mg IM STAT PRN; Protocol PRN Reason: Hypoglycemia Protocol Insulin Aspart (Novolog) 0 unit SC ACHS [facility]; Protocol Last Admin: 01/18/18 21:29 Dose: Not Given Rosuvastatin Calcium (Crestor) 5 mg PO HS [facility] Last Admin: 01/18/18 21:55 Dose: 5 mg Tamsulosin HCl (Flomax) 0.4 mg PO DAILY [facility] Last Admin: 01/18/18 11:59 Dose: 0.4 mg - Labs Labs: 01/19/18 07:05 01/19/18 07:05 PT 16.0 SECONDS (9.7-12.2) H 01/05/18 20:09 INR 1.5 01/05/18 20:09 APTT 55 SECONDS (21-34) H 01/15/18 06:55 - Constitutional Appears: No Acute Distress - Head Exam Head Exam: ATRAUMATIC, NORMOCEPHALIC - Eye Exam Eye Exam: EOMI - ENT Exam ENT Exam: Mucous Membranes Moist - Respiratory Exam Respiratory Exam: Clear to Ausculation Bilateral. absent: Rales, Wheezes - Cardiovascular Exam Cardiovascular Exam: REGULAR RHYTHM, +S1, +S2 - GI/Abdominal Exam GI & Abdominal Exam: Soft. absent: Distended, Tenderness - Neurological Exam Neurological Exam: Alert, Awake, Oriented x3 - Skin Skin Exam: Dry, Intact Assessment and Plan - Assessment and Plan (Free Text) Assessment: 67 year old male with past medical history of htn, dm, CAD s/p CABG, CHF w/ systolic dysfunction and CKD, admitted with NSTEMI, acute decompensated CHF and TRAVIS requiring HD likely due to ATN in the setting of severe hypotension/eleni ycardia along with cardiorenal component. -HD was done 2 days ago; CR inc slightly 3-->3.2 today - will cont to monitor serum creatinine for plateau -Asa and plavix as per cardio -Will monitor where creatinine settles at as patient has underlying advanced CKD with nephrotic range proteinuria; will consider renal biopsy if ASA/plavix can be held for a few days -BP controlled, not currently on any anti-htn or CHF meds -f/u cardio regarding adding B-blockers; avoid IVAN inhibitor/ARB for now -avoid nephrotoxic agents (NSAIDS) -will consider starting PO diuretic -Monitor strict I and O -Obtaining 24 urine for CrCl and 24 hr urine for protein electrophoresis (due to discrepancy between UA and spot ratio); Case and plan was reviewed and discussed in detail with Dr Powers. <Maynor Powers - Last Filed: 01/20/18 08:26> Objective - Vital Signs/Intake and Output Vital Signs (last 24 hours): Temp Pulse Resp BP Pulse Ox 97.4 F L 81 18 121/73 96 01/20/18 08:02 01/20/18 08:02 01/20/18 08:02 01/20/18 08:02 01/20/18 08:02 Intake and Output: 01/20/18 01/20/18 06:59 18:59 Intake Total 350 Balance 350 - Medications Medications: Current Medications Aspirin (Aspirin Chewable) 81 mg PO DAILY [facility] Last Admin: 01/19/18 10:03 Dose: 81 mg Carvedilol (Coreg) 3.125 mg PO BID [facility] Last Admin: 01/19/18 17:23 Dose: 3.125 mg Clopidogrel Bisulfate (Plavix) 75 mg PO DAILY [facility] Last Admin: 01/19/18 10:03 Dose: 75 mg Dextrose (Dextrose 50% Inj) 0 ml IV STAT PRN; Protocol PRN Reason: Hypoglycemia Protocol Dextrose (Glutose 15) 0 gm PO ONCE PRN; Protocol PRN Reason: Hypoglycemia Protocol Finasteride (Proscar) 5 mg PO DAILY [facility] Last Admin: 01/19/18 10:03 Dose: 5 mg Glucagon (Glucagen Diagnostic Kit) 0 mg IM STAT PRN; Protocol PRN Reason: Hypoglycemia Protocol Insulin Aspart (Novolog) 0 unit SC [facility]; Protocol Last Admin: 01/19/18 21:02 Dose: Not Given Rosuvastatin Calcium (Crestor) 5 mg PO HS [facility] Last Admin: 01/19/18 21:11 Dose: 5 mg Tamsulosin HCl (Flomax) 0.4 mg PO DAILY [facility] Last Admin: 01/19/18 10:03 Dose: 0.4 mg - Labs Labs: 01/20/18 07:09 01/20/18 07:09 PT 16.0 SECONDS (9.7-12.2) H 01/05/18 20:09 INR 1.5 01/05/18 20:09 APTT 55 SECONDS (21-34) H 01/15/18 06:55 Assessment and Plan (1) Acute renal failure Status: Acute (2) CKD (chronic kidney disease) Status: Chronic (3) Heart failure, systolic, with acute decompensation Status: Acute (4) NSTEMI (non-ST elevated myocardial infarction) Status: Acute Attending/Attestation - Attestation I have personally seen and examined this patient.: Yes I have fully participated in the care of the patient.: Yes I have reviewed all pertinent clinical information, including history, physical exam and plan: Yes Notes (Text): Patient seen and examined; I agree with the resident's note as above with the following additions/edits: Patient with htn, dm, CAD s/p CABG, CHF w/ systolic dysfunction and CKD, admitted with NSTEMI, acute decompensated CHF and TRAVIS requiring HD; ATN in the setting of hypotension/bradycardia; last HD 3 days ago; serum c reatinine at relative plateau, will continue to monitor for further renal recovery; concern that patient may not return to baseline (which was already consistent with advanced CKD); Otherwise stable volume and electrolyte status; will continue to hold HD; need accurate I/O to assess need to start diuretics given patient's CHF; -Obtaining 24 hr urine for protein electrophoresis and CrCl; -continue B-blockers per cardio; continue to hold off on ARB/IVAN inhibitor until renal function stabilizes; -Avoid nephrotoxic agents;
--- NOTE | 2018-01-19 09:26 | CP.PCM.PN ---
<Alison Erickson - Last Filed: 01/19/18 17:48> Subjective - Date & Time of Evaluation Date of Evaluation: 01/19/18 Time of Evaluation: 07:45 - Subjective Subjective: Cardiology Progress Note Alison Erickson PGY1 note for Dr. Dumont Patient seen and examined at bedside this morning. No acute events overnight. No complaints at this time. Ambulating without difficulty. Objective - Vital Signs/Intake and Output Vital Signs (last 24 hours): Temp Pulse Resp BP Pulse Ox 98.4 F 84 20 114/66 95 01/19/18 07:58 01/19/18 07:58 01/19/18 07:58 01/19/18 07:58 01/19/18 07:58 Intake and Output: 01/19/18 01/19/18 06:59 18:59 Intake Total 30 Output Total 650 Balance -620 - Medications Medications: Current Medications Aspirin (Aspirin Chewable) 81 mg PO DAILY [facility] Last Admin: 01/18/18 12:01 Dose: 81 mg Carvedilol (Coreg) 3.125 mg PO BID [facility] Last Admin: 01/18/18 17:33 Dose: 3.125 mg Clopidogrel Bisulfate (Plavix) 75 mg PO DAILY [facility] Last Admin: 01/18/18 11:59 Dose: 75 mg Dextrose (Dextrose 50% Inj) 0 ml IV STAT PRN; Protocol PRN Reason: Hypoglycemia Protocol Dextrose (Glutose 15) 0 gm PO ONCE PRN; Protocol PRN Reason: Hypoglycemia Protocol Finasteride (Proscar) 5 mg PO DAILY [facility] Last Admin: 01/18/18 11:59 Dose: 5 mg Glucagon (Glucagen Diagnostic Kit) 0 mg IM STAT PRN; Protocol PRN Reason: Hypoglycemia Protocol Insulin Aspart (Novolog) 0 unit SC [facility]; Protocol Last Admin: 01/18/18 21:29 Dose: Not Given Rosuvastatin Calcium (Crestor) 5 mg PO HS [facility] Last Admin: 01/18/18 21:55 Dose: 5 mg Tamsulosin HCl (Flomax) 0.4 mg PO DAILY [facility] Last Admin: 01/18/18 11:59 Dose: 0.4 mg - Labs Labs: 01/19/18 07:05 01/19/18 07:05 PT 16.0 SECONDS (9.7-12.2) H 01/05/18 20:09 INR 1.5 01/05/18 20:09 APTT 55 SECONDS (21-34) H 01/15/18 06:55 - Constitutional Appears: No Acute Distress - Head Exam Head Exam: ATRAUMATIC, NORMAL INSPECTION - Eye Exam Eye Exam: EOMI - Respiratory Exam Respiratory Exam: Clear to Ausculation Bilateral. absent: Respiratory Distress - Cardiovascular Exam Cardiovascular Exam: REGULAR RHYTHM, +S1, +S2 - GI/Abdominal Exam GI & Abdominal Exam: Normal Bowel Sounds. absent: Guarding, Rigid - Extremities Exam Extremities Exam: Normal Inspection. absent: Calf Tenderness - Neurological Exam Neurological Exam: Alert, Awake - Skin Skin Exam: Normal Color, Warm Assessment and Plan - Assessment and Plan (Free Text) Assessment: This is a 67 year old male with PMH of CAD s/p CABG 11/2017 presenting to hospital for management of acute on chronic systolic heart failure. Plan: Acute on chronic systolic heart failure -continue plavix, asa, crestor -continue lasix, coreg -loop recorder placed on 01/16, patient to follow up with Dr. Mi after discharge -s/p cardiac cath on 01/15 -showed severe [place] triple vessel disease, patent grafts, ischemic cardiomyopathy, EF of 45% -continue with hemodialysis as needed, aggressive medical management. Intervention not indicated at this time -CXR shows findings consistent with CHF and pleural effusions CKD -received HD on 01/16 -Cr is 3.2 from 3 yesterday Case discussed with attending, further recommendations per Dr. Dumont <Ector Dumont - Last Filed: 01/19/18 18:35> Objective - Vital Signs/Intake and Output Vital Signs (last 24 hours): Temp Pulse Resp BP Pulse Ox 98.2 F 83 20 104/66 100 01/19/18 16:00 01/19/18 16:00 01/19/18 16:00 01/19/18 16:00 01/19/18 16:00 Intake and Output: 01/19/18 01/19/18 06:59 18:59 Intake Total 30 480 Output Total 650 Balance -620 480 - Medications Medications: Current Medications Aspirin (Aspirin Chewable) 81 mg PO DAILY [facility] Last Admin: 01/19/18 10:03 Dose: 81 mg Carvedilol (Coreg) 3.125 mg PO BID [facility] Last Admin: 01/19/18 17:23 Dose: 3.125 mg Clopidogrel Bisulfate (Plavix) 75 mg PO DAILY [facility] Last Admin: 01/19/18 10:03 Dose: 75 mg Dextrose (Dextrose 50% Inj) 0 ml IV STAT PRN; Protocol PRN Reason: Hypoglycemia Protocol Dextrose (Glutose 15) 0 gm PO ONCE PRN; Protocol PRN Reason: Hypoglycemia Protocol Finasteride (Proscar) 5 mg PO DAILY [facility] Last Admin: 01/19/18 10:03 Dose: 5 mg Glucagon (Glucagen Diagnostic Kit) 0 mg IM STAT PRN; Protocol PRN Reason: Hypoglycemia Protocol Insulin Aspart (Novolog) 0 unit SC [facility]S [facility]; Protocol Last Admin: 01/19/18 17:23 Dose: 3 units Rosuvastatin Calcium (Crestor) 5 mg PO HS [facility] Last Admin: 01/18/18 21:55 Dose: 5 mg Tamsulosin HCl (Flomax) 0.4 mg PO DAILY [facility] Last Admin: 01/19/18 10:03 Dose: 0.4 mg - Labs Labs: 01/19/18 07:05 01/19/18 07:05 PT 16.0 SECONDS (9.7-12.2) H 01/05/18 20:09 INR 1.5 01/05/18 20:09 APTT 55 SECONDS (21-34) H 01/15/18 06:55 Assessment and Plan (1) Acute pulmonary edema Status: Acute (2) Acute renal failure Status: Acute (3) Heart failure, systolic, with acute decompensation Status: Acute (4) Hypotension Status: Acute (5) NSTEMI (non-ST elevated myocardial infarction) Status: Acute (6) CKD (chronic kidney disease) Status: Chronic Attending/Attestation - Attestation I have personally seen and examined this patient.: Yes I have fully participated in the care of the patient.: Yes I have reviewed all pertinent clinical information, including history, physical exam and plan: Yes
--- NOTE | 2018-01-19 13:23 | CP.PCM.PN ---
<Mateo Chaidez - Last Filed: 01/19/18 20:57> Subjective - Date & Time of Evaluation Date of Evaluation: 01/19/18 Time of Evaluation: 07:50 - Subjective Subjective: Medicine Progress Note for Hospitalist Service Pt seen and examined at bedside this am. Denies any acute complaints, observeted oob to chair this am. No acute events reported overnight. 12-point ROS obtained, otherwise negative as per patient. Objective - Vital Signs/Intake and Output Vital Signs (last 24 hours): Temp Pulse Resp BP Pulse Ox 98.4 F 84 20 114/66 95 01/19/18 07:58 01/19/18 07:58 01/19/18 07:58 01/19/18 07:58 01/19/18 07:58 Intake and Output: 01/19/18 01/19/18 06:59 18:59 Intake Total 30 Output Total 650 Balance -620 - Medications Medications: Current Medications Aspirin (Aspirin Chewable) 81 mg PO DAILY [facility] Last Admin: 01/19/18 10:03 Dose: 81 mg Carvedilol (Coreg) 3.125 mg PO BID [facility] Last Admin: 01/19/18 10:03 Dose: 3.125 mg Clopidogrel Bisulfate (Plavix) 75 mg PO DAILY [facility] Last Admin: 01/19/18 10:03 Dose: 75 mg Dextrose (Dextrose 50% Inj) 0 ml IV STAT PRN; Protocol PRN Reason: Hypoglycemia Protocol Dextrose (Glutose 15) 0 gm PO ONCE PRN; Protocol PRN Reason: Hypoglycemia Protocol Finasteride (Proscar) 5 mg PO DAILY [facility] Last Admin: 01/19/18 10:03 Dose: 5 mg Glucagon (Glucagen Diagnostic Kit) 0 mg IM STAT PRN; Protocol PRN Reason: Hypoglycemia Protocol Insulin Aspart (Novolog) 0 unit SC ACHS [facility]; Protocol Last Admin: 01/19/18 12:30 Dose: 1 units Rosuvastatin Calcium (Crestor) 5 mg PO HS [facility] Last Admin: 01/18/18 21:55 Dose: 5 mg Tamsulosin HCl (Flomax) 0.4 mg PO DAILY [facility] Last Admin: 01/19/18 10:03 Dose: 0.4 mg - Labs Labs: 01/19/18 07:05 01/19/18 07:05 PT 16.0 SECONDS (9.7-12.2) H 01/05/18 20:09 INR 1.5 01/05/18 20:09 APTT 55 SECONDS (21-34) H 01/15/18 06:55 - Constitutional Appears: Non-toxic, No Acute Distress - Head Exam Head Exam: ATRAUMATIC, NORMOCEPHALIC - Eye Exam Eye Exam: EOMI, Normal appearance, PERRL - ENT Exam ENT Exam: Mucous Membranes Moist - Respiratory Exam Respiratory Exam: Clear to Ausculation Bilateral, NORMAL BREATHING PATTERN. absent: Rales, Rhonchi, Wheezes - Cardiovascular Exam Cardiovascular Exam: REGULAR RHYTHM, +S1, +S2. absent: Gallop, Rubs, Murmur - GI/Abdominal Exam GI & Abdominal Exam: Soft, Normal Bowel Sounds. absent: Distended, Firm, Guarding, Rigid, Tenderness, Organomegaly, Rebound - Extremities Exam Extremities Exam: Full ROM, Normal Capillary Refill, Normal Inspection Additional comments: Improving 2+ pitting edema in LEs b/l - Neurological Exam Neurological Exam: Alert, Awake, CN II-XII Intact, Normal Gait, Oriented x3 - Psychiatric Exam Psychiatric exam: Normal Affect, Normal Mood - Skin Skin Exam: Dry, Intact, Normal Color, Warm Assessment and Plan - Assessment and Plan (Free Text) Assessment: 67M PMhx CAD w/ NSTEMI here in 11/25 and s/p CABG at [place] within last month, DM2, admitted to ICU after c/o 3 days of shortness of breath for CHF and pulmonary edema. S/p downgrade to tele floor. Plan: [id number] CHF No acute complaints today, improving clinically, sob improved S/p hemodialysis sessions x4 while inpatient Continue to monitor output EKG demonstrated 1st degree heart block and bradycardia with no acute ST-T wave changes Echo: EF 34%, Impaired systolic function Cardio consulted (Dr. Delgado), recs appreciated Lasix 40 mg IVP bid Coreg 3.125 mg PO bid, continue to monitor bps [id number] Renal Failure BUN CR 66/3.2 today Fluid restriction and dialysis as per Dr. Powers (Nephro) Pt has hx of non-compliance with DM tx/chronic renal disease Avoid nephrotoxic drugs F/u nephro recs, will plan for renal bx outpatient due to NSTEMI hx F/u 24 hr urine NSTEMI, recent CABG, elevated troponins S/p cardiac cath Mon 10/8: demonstrated severe [place] de[place]' triple vessel disease, patent grafts, ischemic cardiomyopathy, EF 45% C/w ASA, Plavix C/w Rosuvastatin 5 mg PO hs Recently went to [place] for CABG in past month and was discharged S/p loop recorder placement 01/16 with EP: pt can f/u with Dr. Mi outpatient within 2-3 weeks of discharge DM Novolog sliding scale Fingersticks achs Hypoglycemic protocol Continue to monitor Elevated Lactate + R leg s/p vein harvest for CABG, R/o infection S/p 1x dose vanco in ED Cipro 400 mg IVPB daily d/c'd Blood and urine cxs demonstrated no growth Wound cx 01/06 showed Proteus mirabilis, Klebsiella pneumoniae, Strep pneumo, Enterococcus faecalis Procalcitonin elevated at 1.18 on 01/06 Diet: renal DVT ppx: Heparin GI ppx: Pepcid PT/OT eval and treat Social work consulted, recs appreciated Pt seen, examined with, and plan discussed with Dr. Lynn, attending physician. Mateo Chaidez DO PGY-1, Patient Registration Representative Pager #[phone] <Lawanda Lynn - Last Filed: 01/20/18 18:06> Objective - Vital Signs/Intake and Output Vital Signs (last 24 hours): Temp Pulse Resp BP Pulse Ox 97.7 F 81 20 99/62 L 98 01/20/18 15:00 01/20/18 15:00 01/20/18 15:00 01/20/18 15:00 01/20/18 15:00 Intake and Output: 01/20/18 01/20/18 06:59 18:59 Intake Total 350 Balance 350 - Medications Medications: Current Medications Aspirin (Aspirin Chewable) 81 mg PO DAILY [facility] Last Admin: 01/20/18 09:25 Dose: 81 mg Carvedilol (Coreg) 3.125 mg PO BID [facility] Last Admin: 01/20/18 09:25 Dose: 3.125 mg Clopidogrel Bisulfate (Plavix) 75 mg PO DAILY [facility] Last Admin: 01/20/18 09:25 Dose: 75 mg Dextrose (Dextrose 50% Inj) 0 ml IV STAT PRN; Protocol PRN Reason: Hypoglycemia Protocol Dextrose (Glutose 15) 0 gm PO ONCE PRN; Protocol PRN Reason: Hypoglycemia Protocol Finasteride (Proscar) 5 mg PO DAILY [facility] Last Admin: 01/20/18 09:25 Dose: 5 mg Glucagon (Glucagen Diagnostic Kit) 0 mg IM STAT PRN; Protocol PRN Reason: Hypoglycemia Protocol Insulin Aspart (Novolog) 0 unit SC A[facility]S [facility]; Protocol Last Admin: 01/20/18 12:43 Dose: 4 units Rosuvastatin Calcium (Crestor) 5 mg PO HS [facility] Last Admin: 01/19/18 21:11 Dose: 5 mg Tamsulosin HCl (Flomax) 0.4 mg PO DAILY [facility] Last Admin: 01/20/18 09:25 Dose: 0.4 mg - Labs Labs: 01/20/18 07:09 01/20/18 14:56 PT 16.0 SECONDS (9.7-12.2) H 01/05/18 20:09 INR 1.5 01/05/18 20:09 APTT 55 SECONDS (21-34) H 01/15/18 06:55 Attending/Attestation - Attestation I have personally seen and examined this patient.: Yes I have fully participated in the care of the patient.: Yes I have reviewed all pertinent clinical information, including history, physical exam and plan: Yes Notes (Text): EEN AND EXAMINED BY ME PATIENT IS NPO FOR CARDIAC CATH 1. ACUTE ON CHRONIC SYSTOLIC HEART FAILURE 2.NSTMI,S/P CABG 3.ACUTE ON CHRONIC RENAL FAILURE 4.NONCOMPLIANCE WITH MEDS 5.DM 6.S/P BRADYCARDIA IMPROVED S/P DIALYSIS,URINE OUT PUT IMPROVING.LIKELY CHRONIC RENAL FAILURE,24 HOUR URINE PER NEPHROLOGY S/P EMEKA CATH,S/P LOOP RECORDER DISCUSSED WITH RESIDENT
[2018-01-20 07:22] LABS: BASO % 0.6 % (0.0-2.0); EOS # 0.1 K/uL (0.0-0.7); EOS % 1.4 % (0.0-4.0); HEMOGLOBIN 9.4 g/dL (12.0-18.0); LYMPH # 0.9 K/uL (1.0-4.3); LYMPH % 14.6 % (20.0-40.0); MEAN CORPUSCULAR HEMOGLOBIN 28.3 pg (27.0-31.0); MEAN CORPUSCULAR HGB CONC 32.2 g/dL (33.0-37.0); MEAN PLATELET VOLUME 8.5 fL (7.2-11.7); MONO # 0.7 K/uL (0.0-0.8); MONO % 10.6 % (0.0-10.0); NEUT # 4.6 K/uL (1.8-7.0); NEUT % 72.8 % (50.0-75.0); RBC 3.33 Mil/uL (4.40-5.90); RED CELL DISTRIBUTION WIDTH 16.3 % (11.5-14.5); WHITE BLOOD COUNT 6.3 K/uL (4.8-10.8)
[2018-01-20 08:01] LABS: ALB/GLOB RATIO 1.1 (1.0-2.1); ALBUMIN 3.6 g/dL (3.5-5.0); CALCIUM 9.3 mg/dl (8.6-10.4)
[2018-01-20] MEDS: (Novolog) Insulin Aspart, Recombinant 100 u/ml 10 ml vial SC SCH ×4 (09:27→21:15)
--- NOTE | 2018-01-20 15:03 | CP.PCM.PN ---
<Greg Sam - Last Filed: 01/20/18 18:10> Subjective - Date & Time of Evaluation Date of Evaluation: 01/20/18 Time of Evaluation: 15:02 - Subjective Subjective: PGY-2 Progress Note Patient seen and examined at bedside. Per nursing no acute events occurred overnight. Patient still reports some chest discomfort. She denies any nausea, trauma, vomiting, headaches, dizziness, syncopal episodes, or any other complaints. Objective - Vital Signs/Intake and Output Vital Signs (last 24 hours): Temp Pulse Resp BP Pulse Ox 97.4 F L 81 18 121/73 96 01/20/18 08:02 01/20/18 08:02 01/20/18 08:02 01/20/18 08:02 01/20/18 08:02 Intake and Output: 01/20/18 01/20/18 06:59 18:59 Intake Total 350 Balance 350 - Medications Medications: Current Medications Aspirin (Aspirin Chewable) 81 mg PO DAILY [facility] Last Admin: 01/20/18 09:25 Dose: 81 mg Carvedilol (Coreg) 3.125 mg PO BID [facility] Last Admin: 01/20/18 09:25 Dose: 3.125 mg Clopidogrel Bisulfate (Plavix) 75 mg PO DAILY [facility] Last Admin: 01/20/18 09:25 Dose: 75 mg Dextrose (Dextrose 50% Inj) 0 ml IV STAT PRN; Protocol PRN Reason: Hypoglycemia Protocol Dextrose (Glutose 15) 0 gm PO ONCE PRN; Protocol PRN Reason: Hypoglycemia Protocol Finasteride (Proscar) 5 mg PO DAILY [facility] Last Admin: 01/20/18 09:25 Dose: 5 mg Glucagon (Glucagen Diagnostic Kit) 0 mg IM STAT PRN; Protocol PRN Reason: Hypoglycemia Protocol Insulin Aspart (Novolog) 0 unit SC ACHS [facility]; Protocol Last Admin: 01/20/18 12:43 Dose: 4 units Rosuvastatin Calcium (Crestor) 5 mg PO HS [facility] Last Admin: 01/19/18 21:11 Dose: 5 mg Tamsulosin HCl (Flomax) 0.4 mg PO DAILY [facility] Last Admin: 01/20/18 09:25 Dose: 0.4 mg - Labs Labs: 01/20/18 07:09 01/20/18 14:56 PT 16.0 SECONDS (9.7-12.2) H 01/05/18 20:09 INR 1.5 01/05/18 20:09 APTT 55 SECONDS (21-34) H 01/15/18 06:55 - Head Exam Head Exam: ATRAUMATIC, NORMAL INSPECTION - Eye Exam Eye Exam: EOMI, Normal appearance, PERRL Pupil Exam: NORMAL ACCOMODATION, PERRL. absent: Irregular, Unequal - ENT Exam ENT Exam: Mucous Membranes Moist, Normal Oropharynx - Respiratory Exam Respiratory Exam: Clear to Ausculation Bilateral, NORMAL BREATHING PATTERN - Cardiovascular Exam Cardiovascular Exam: REGULAR RHYTHM, +S1, +S2 - GI/Abdominal Exam GI & Abdominal Exam: Soft, Normal Bowel Sounds - Neurological Exam Neurological Exam: Alert, Awake, CN II-XII Intact, Oriented x3 - Psychiatric Exam Psychiatric exam: Normal Affect, Normal Mood - Skin Skin Exam: Dry, Intact Assessment and Plan - Assessment and Plan (Free Text) Assessment: 67M PMhx CAD w/ NSTEMI here in 11/25 and s/p CABG at [place] within last month, DM2, admitted to ICU after c/o 3 days of shortness of breath for CHF and pulmonary edema. S/p downgrade to tele floor. Plan: [id number] CHF No acute complaints today, improving clinically, sob improved S/p hemodialysis sessions x4 while inpatient Continue to monitor output EKG demonstrated 1st degree heart block and bradycardia with no acute ST-T wave changes Echo: EF 34%, Impaired systolic function Cardio consulted (Dr. Delgado), recs appreciated Coreg 3.125 mg PO bid, continue to monitor bps [id number] Renal Failure BUN CR 61/2.4 today Fluid restriction and dialysis as per Dr. Powers (Nephro) Pt has hx of non-compliance with DM tx/chronic renal disease Avoid nephrotoxic drugs F/u nephro recs, will plan for renal bx outpatient due to NSTEMI hx F/u 24 hr urine -f/U 24 HR renal collection NSTEMI, recent CABG, elevated troponins S/p cardiac cath Mon 01/15: demonstrated severe saxman triple vessel disease, patent grafts, ischemic cardiomyopathy, EF 45% C/w ASA, Plavix C/w Rosuvastatin 5 mg PO hs Recently went to [place] for CABG in past month and was discharged S/p loop recorder placement 01/16 with EP: pt can f/u with Dr. Mi outpatient within 2-3 weeks of discharge DM Novolog sliding scale Fingersticks achs Hypoglycemic protocol Continue to monitor Elevated Lactate + R leg s/p vein harvest for CABG, R/o infection S/p 1x dose vanco in ED Blood and urine cxs demonstrated no growth Wound cx 01/06 showed Proteus mirabilis, Klebsiella pneumoniae, Strep pneumo, Enterococcus faecalis Procalcitonin elevated at 1.18 on 01/06 Diet: renal DVT ppx: Heparin GI ppx: Pepcid PT/OT eval and treat Social work consulted, recs appreciated Pt seen, examined with, and plan discussed with Dr. Lynn, attending ph ysician. Greg Sam, PGY-2 <Lawanda Lynn - Last Filed: 01/20/18 19:04> Objective - Vital Signs/Intake and Output Vital Signs (last 24 hours): Temp Pulse Resp BP Pulse Ox 97.7 F 86 20 99/60 L 98 01/20/18 15:00 01/20/18 18:17 01/20/18 15:00 01/20/18 18:17 01/20/18 15:00 - Medications Medications: Current Medications Aspirin (Aspirin Chewable) 81 mg PO DAILY [facility] Last Admin: 01/20/18 09:25 Dose: 81 mg Carvedilol (Coreg) 3.125 mg PO BID [facility] Last Admin: 01/20/18 18:16 Dose: Not Given Clopidogrel Bisulfate (Plavix) 75 mg PO DAILY [facility] Last Admin: 01/20/18 09:25 Dose: 75 mg Dextrose (Dextrose 50% Inj) 0 ml IV STAT PRN; Protocol PRN Reason: Hypoglycemia Protocol Dextrose (Glutose 15) 0 gm PO ONCE PRN; Protocol PRN Reason: Hypoglycemia Protocol Finasteride (Proscar) 5 mg PO DAILY [facility] Last Admin: 01/20/18 09:25 Dose: 5 mg Glucagon (Glucagen Diagnostic Kit) 0 mg IM STAT PRN; Protocol PRN Reason: Hypoglycemia Protocol Insulin Aspart (Novolog) 0 unit SC ACHS [facility]; Protocol Last Admin: 01/20/18 18:16 Dose: 4 units Rosuvastatin Calcium (Crestor) 5 mg PO HS [facility] Last Admin: 01/19/18 21:11 Dose: 5 mg Tamsulosin HCl (Flomax) 0.4 mg PO DAILY [facility] Last Admin: 01/20/18 09:25 Dose: 0.4 mg - Labs Labs: 01/20/18 07:09 01/20/18 14:56 PT 16.0 SECONDS (9.7-12.2) H 01/05/18 20:09 INR 1.5 01/05/18 20:09 APTT 55 SECONDS (21-34) H 01/15/18 06:55 Attending/Attestation - Attestation I have personally seen and examined this patient.: Yes I have fully participated in the care of the patient.: Yes I have reviewed all pertinent clinical information, including history, physical exam and plan: Yes Notes (Text): NO COMPLAIN,LUNGS NOT CONGESTED,PASSING URINE D/W DR POWERS,FOLLOW CREATININE POSSIBLE DISCHARGE ON MONDAY IF CREATININE REMAINS STABLE CONTINUE COREG OUT PT CARDIO FOLLOW UP DISCUSSED ABOUT MEDICATION COMPLIANCE
[2018-01-20 15:13] LABS: URINE CREATININE 39.8 mg/dL
[2018-01-20 16:55] VITALS: RESP 20
--- NOTE | 2018-01-20 23:12 | CP.PCM.PN ---
Subjective - Date & Time of Evaluation Date of Evaluation: 01/20/18 Time of Evaluation: 14:30 - Subjective Subjective: Patient reports feeling well; no sob; tolerating diet; urinating well; Objective - Vital Signs/Intake and Output Vital Signs (last 24 hours): Temp Pulse Resp BP Pulse Ox 97.7 F 86 20 99/60 L 98 01/20/18 15:00 01/20/18 18:17 01/20/18 15:00 01/20/18 18:17 01/20/18 15:00 - Medications Medications: Current Medications Aspirin (Aspirin Chewable) 81 mg PO DAILY [facility] Last Admin: 01/20/18 09:25 Dose: 81 mg Carvedilol (Coreg) 3.125 mg PO BID [facility] Last Admin: 01/20/18 18:16 Dose: Not Given Clopidogrel Bisulfate (Plavix) 75 mg PO DAILY [facility] Last Admin: 01/20/18 09:25 Dose: 75 mg Dextrose (Dextrose 50% Inj) 0 ml IV STAT PRN; Protocol PRN Reason: Hypoglycemia Protocol Dextrose (Glutose 15) 0 gm PO ONCE PRN; Protocol PRN Reason: Hypoglycemia Protocol Finasteride (Proscar) 5 mg PO DAILY [facility] Last Admin: 01/20/18 09:25 Dose: 5 mg Glucagon (Glucagen Diagnostic Kit) 0 mg IM STAT PRN; Protocol PRN Reason: Hypoglycemia Protocol Insulin Aspart (Novolog) 0 unit SC [facility]; Protocol Last Admin: 01/20/18 21:15 Dose: Not Given Rosuvastatin Calcium (Crestor) 5 mg PO HS [facility] Last Admin: 01/20/18 22:02 Dose: 5 mg Tamsulosin HCl (Flomax) 0.4 mg PO DAILY [facility] Last Admin: 01/20/18 09:25 Dose: 0.4 mg - Labs Labs: 01/20/18 07:09 01/20/18 14:56 PT 16.0 SECONDS (9.7-12.2) H 01/05/18 20:09 INR 1.5 01/05/18 20:09 APTT 55 SECONDS (21-34) H 01/15/18 06:55 - Constitutional Appears: Non-toxic, No Acute Distress - Eye Exam Eye Exam: Normal appearance - Respiratory Exam Respiratory Exam: Clear to Ausculation Bilateral. absent: Respiratory Distress - Cardiovascular Exam Cardiovascular Exam: RRR, +S1, +S2 - GI/Abdominal Exam GI & Abdominal Exam: Soft. absent: Distended, Tenderness - Extremities Exam Additional comments: mild leg edema (much improved); - Neurological Exam Neurological Exam: Alert, Awake - Psychiatric Exam Psychiatric exam: Normal Mood. absent: Agitated - Skin Skin Exam: Warm. absent: Cyanosis Assessment and Plan (1) Acute renal failure Assessment & Plan: ATN, resolving; currently in diuresis phase of ATN recovery (finally able to document correctly with 24 hr urine collection); stable volume and electrolyte status; will continue to monitor closely; -No more need for HD; will plan to d/c HD cath tomorrow; -Avoid nephrotoxic agents (NSAIDS, IV dye, phosphate enema); Status: Acute (2) CKD (chronic kidney disease) Assessment & Plan: Presumed CKD IIIB but will wait for serum creatinine to stabilize; concern for nephrotic range proteinuria on spot prot/creat ratio, awaiting 24 hr result; needs renal biopsy at some point but will have to wait a few weeks due to recent NSTEMI and patient on ASA/plavix; -need better glycemic control; -will decide on IVAN inhibitor/ARB once renal function stable; Status: Chronic (3) Heart failure, systolic, with acute decompensation Assessment & Plan: Currently with no CHF symptoms and appears relatively euvolemic on exam; will need to start diuretics once diuresis phase of ATN recovery resolves; Status: Acute (4) NSTEMI (non-ST elevated myocardial infarction) Status: Acute
[2018-01-21] MEDS: (Novolog) Insulin Aspart, Recombinant 100 u/ml 10 ml vial SC SCH ×4 (09:13→22:23)
--- NOTE | 2018-01-21 09:38 | CP.PCM.PN ---
Subjective - Date & Time of Evaluation Date of Evaluation: 01/21/18 Time of Evaluation: 09:36 - Subjective Subjective: PGY-2 Progress Note Patient seen and examined at bedside. Per nursing no acute events occurred overnight. Patient denies any chest pain, fevers, chills, nausea, vomiting, headaches, chest pain, syncopal episodes, or any other complaints. Objective - Vital Signs/Intake and Output Vital Signs (last 24 hours): Temp Pulse Resp BP Pulse Ox 98.0 F 89 20 121/58 L 98 01/21/18 00:00 01/21/18 00:00 01/21/18 00:00 01/21/18 00:00 01/21/18 00:00 - Medications Medications: Current Medications Aspirin (Aspirin Chewable) 81 mg PO DAILY [facility] Last Admin: 01/21/18 09:13 Dose: 81 mg Carvedilol (Coreg) 3.125 mg PO BID [facility] Last Admin: 01/21/18 09:13 Dose: 3.125 mg Clopidogrel Bisulfate (Plavix) 75 mg PO DAILY [facility] Last Admin: 01/21/18 09:13 Dose: 75 mg Dextrose (Dextrose 50% Inj) 0 ml IV STAT PRN; Protocol PRN Reason: Hypoglycemia Protocol Dextrose (Glutose 15) 0 gm PO ONCE PRN; Protocol PRN Reason: Hypoglycemia Protocol Finasteride (Proscar) 5 mg PO DAILY [facility] Last Admin: 01/21/18 09:13 Dose: 5 mg Glucagon (Glucagen Diagnostic Kit) 0 mg IM STAT PRN; Protocol PRN Reason: Hypoglycemia Protocol Insulin Aspart (Novolog) 0 unit SC ACHS [facility]; Protocol Last Admin: 01/21/18 09:13 Dose: 2 units Rosuvastatin Calcium (Crestor) 5 mg PO HS [facility] Last Admin: 01/20/18 22:02 Dose: 5 mg Tamsulosin HCl (Flomax) 0.4 mg PO DAILY [facility] Last Admin: 01/21/18 09:13 Dose: 0.4 mg - Labs Labs: 01/20/18 07:09 01/20/18 14:56 PT 16.0 SECONDS (9.7-12.2) H 01/05/18 20:09 INR 1.5 01/05/18 20:09 APTT 55 SECONDS (21-34) H 01/15/18 06:55 - Head Exam Head Exam: ATRAUMATIC, NORMAL INSPECTION - Eye Exam Eye Exam: EOMI, Normal appearance, PERRL Pupil Exam: NORMAL ACCOMODATION, PERRL. absent: Irregular, Unequal - ENT Exam ENT Exam: Mucous Membranes Moist, Normal Oropharynx - Respiratory Exam Respiratory Exam: Clear to Ausculation Bilateral, NORMAL BREATHING PATTERN. absent: Chest Wall Tenderness, Prolonged Expiratory Phase, Respiratory Distress - Cardiovascular Exam Cardiovascular Exam: REGULAR RHYTHM, RRR, +S1, +S2. absent: Rubs - GI/Abdominal Exam GI & Abdominal Exam: Soft, Normal Bowel Sounds. absent: Hyperactive Bowel Sounds - Extremities Exam Extremities Exam: Full ROM, Normal Inspection. absent: Pedal Edema - Back Exam Back Exam: NORMAL INSPECTION. absent: CVA tenderness (R), paraspinal tenderness - Neurological Exam Neurological Exam: Alert, Awake, CN II-XII Intact, Oriented x3 - Psychiatric Exam Psychiatric exam: Normal Affect, Normal Mood. absent: Flat Affect, Suicidal Ideation - Skin Skin Exam: Dry, Intact Assessment and Plan - Assessment and Plan (Free Text) Assessment: 67M PMhx CAD w/ NSTEMI here in 11/25 and s/p CABG at [place] within last month, DM2, admitted to ICU after c/o 3 days of shortness of breath for CHF and pulmonary edema. S/p downgrade to tele floor. Plan: [id number] CHF No acute complaints today, improving clinically, sob improved S/p hemodialysis sessions x4 while inpatient Continue to monitor output EKG demonstrated 1st degree heart block and bradycardia with no acute ST-T wave changes Echo: EF 34%, Impaired systolic function Cardio consulted (Dr. Delgado), recs appreciated Coreg 3.125 mg PO bid, continue to monitor bps [id number] Renal Failure BUN CR 54/2.1 today Pt has hx of non-compliance with DM tx/chronic renal disease Avoid nephrotoxic drugs Nephro recs: will plan for renal bx outpatient due to NSTEMI hx :No more need for HD; will plan to d/c HD cath tomorrow; NSTEMI, recent CABG, elevated troponins S/p cardiac cath Mon 01/15: demonstrated severe poarch triple vessel disease, patent grafts, ischemic cardiomyopathy, EF 45% C/w ASA, Plavix C/w Rosuvastatin 5 mg PO hs Recently went to [place] for CABG in past month and was discharged S/p loop recorder placement 01/16 with EP: pt can f/u with Dr. Mi outpatient within 2-3 weeks of discharge DM Novolog sliding scale Fingersticks achs Hypoglycemic protocol Continue to monitor Elevated Lactate + R leg s/p vein harvest for CABG, R/o infection S/p 1x dose vanco in ED Blood and urine cxs demonstrated no growth Wound cx 01/06 showed Proteus mirabilis, Klebsiella pneumoniae, Strep pneumo, Enterococcus faecalis Procalcitonin elevated at 1.18 on 01/06 Diet: renal DVT ppx: Heparin GI ppx: Pepcid PT/OT eval and treat Social work consulted, recs appreciated Pt seen, examined with, and plan discussed with Dr. Lynn, attending physician. Greg Sam, PGY-2
[2018-01-21 11:57] LABS: BASO % 0.7 % (0.0-2.0); EOS # 0.1 K/uL (0.0-0.7); EOS % 1.3 % (0.0-4.0); LYMPH # 1.1 K/uL (1.0-4.3); LYMPH % 16.8 % (20.0-40.0); MEAN CELL VOLUME 89.2 fL (80.0-94.0); MEAN CORPUSCULAR HEMOGLOBIN 28.7 pg (27.0-31.0); MEAN CORPUSCULAR HGB CONC 32.2 g/dL (33.0-37.0); MEAN PLATELET VOLUME 9.2 fL (7.2-11.7); MONO # 0.7 K/uL (0.0-0.8); MONO % 10.5 % (0.0-10.0); NEUT # 4.5 K/uL (1.8-7.0); NEUT % 70.7 % (50.0-75.0); NRBC % 0.1 % (0.0-2.0); RBC 3.14 Mil/uL (4.40-5.90); RED CELL DISTRIBUTION WIDTH 16.3 % (11.5-14.5); WHITE BLOOD COUNT 6.4 K/uL (4.8-10.8)
[2018-01-21 12:26] LABS: ALB/GLOB RATIO 1.1 (1.0-2.1); ALBUMIN 3.5 g/dL (3.5-5.0); CALCIUM 9.3 mg/dl (8.6-10.4)
[2018-01-21 14:41] LABS: IRON 39 ug/dL (49-181)
[2018-01-21 14:51] LABS: % IRON SATURATION 11 (20-55); TOTAL IRON BINDING CAPACITY 355 ug/dL (250-450)
[2018-01-21] MEDS ORDERED: guaiFENesin DM 200 mg-20 mg/10 ml UD PO PRN (22:54)
[2018-01-22] MEDS: (Novolog) Insulin Aspart, Recombinant 100 u/ml 10 ml vial SC SCH ×3 (09:19→17:45)
--- NOTE | 2018-01-22 09:55 | CP.PCM.PN ---
Subjective - Date & Time of Evaluation Date of Evaluation: 01/22/18 Time of Evaluation: 07:50 - Subjective Subjective: Nephrology progress note for Dr Powers: Pt seen and examined at bedside. No acute events overnight. No complaints at this time. Denies any caba, dizziness, fever, chills, sob, cp, abd pain, n/v/d. 12 Point ROS performed and neg other than stated above. Objective - Vital Signs/Intake and Output Vital Signs (last 24 hours): Temp Pulse Resp BP Pulse Ox 97.4 F L 80 20 115/62 97 01/22/18 08:00 01/22/18 08:00 01/22/18 08:00 01/22/18 08:00 01/22/18 08:00 - Medications Medications: Current Medications Aspirin (Aspirin Chewable) 81 mg PO DAILY [facility] Last Admin: 01/22/18 09:18 Dose: 81 mg Carvedilol (Coreg) 3.125 mg PO BID [facility] Last Admin: 01/22/18 09:18 Dose: 3.125 mg Clopidogrel Bisulfate (Plavix) 75 mg PO DAILY [facility] Last Admin: 01/22/18 09:18 Dose: 75 mg Dextrose (Dextrose 50% Inj) 0 ml IV STAT PRN; Protocol PRN Reason: Hypoglycemia Protocol Dextrose (Glutose 15) 0 gm PO ONCE PRN; Protocol PRN Reason: Hypoglycemia Protocol Finasteride (Proscar) 5 mg PO DAILY [facility] Last Admin: 01/22/18 09:19 Dose: 5 mg Glucagon (Glucagen Diagnostic Kit) 0 mg IM STAT PRN; Protocol PRN Reason: Hypoglycemia Protocol Guaifenesin/Dextromethorphan (Robitussin Dm) 10 ml PO Q4H PRN PRN Reason: Cough and congestion Last Admin: 01/21/18 23:54 Dose: 10 ml Insulin Aspart (Novolog) 0 unit SC ACHS [facility]; Protocol Last Admin: 01/22/18 09:19 Dose: 2 units Rosuvastatin Calcium (Crestor) 5 mg PO HS [facility] Last Admin: 01/21/18 21:55 Dose: 5 mg Tamsulosin HCl (Flomax) 0.4 mg PO DAILY [facility] Last Admin: 01/22/18 09:19 Dose: 0.4 mg - Labs Labs: 01/21/18 11:44 01/21/18 11:44 PT 16.0 SECONDS (9.7-12.2) H 01/05/18 20:09 INR 1.5 01/05/18 20:09 APTT 55 SECONDS (21-34) H 01/15/18 06:55 - Constitutional Appears: No Acute Distress - Head Exam Head Exam: ATRAUMATIC, NORMOCEPHALIC - Eye Exam Eye Exam: EOMI - ENT Exam ENT Exam: Mucous Membranes Moist - Respiratory Exam Respiratory Exam: Clear to Ausculation Bilateral. absent: Rales, Wheezes - Cardiovascular Exam Cardiovascular Exam: REGULAR RHYTHM, +S1, +S2 - GI/Abdominal Exam GI & Abdominal Exam: Soft. absent: Distended, Tenderness - Extremities Exam Extremities Exam: absent: Calf Tenderness - Neurological Exam Neurological Exam: Alert, Awake - Skin Skin Exam: Dry, Intact Assessment and Plan - Assessment and Plan (Free Text) Assessment: 67 year old male with past medical history of htn, dm, CAD s/p CABG, CHF w/ systolic dysfunction and CKD, admitted with NSTEMI, acute decompensated CHF and TRAVIS requiring HD likely due to ATN in the setting of severe hypotension/bradycardia along with cardiorenal component. -Cr was 2.1 yesterday, pending today - currently in diuresis phase of ATN recovery -Patient does not require HD, will plan to have the cath removed today -Will need a renal biopsy at some point but will have to wait a few weeks due to recent NSTEMI and patient is currently on ASA/plavix; -BP controlled, not currently on any anti-htn or CHF meds -f/u cardio regarding adding B-blockers; avoid IVAN inhibitor/ARB for now -Asa and plavix as per cardio -avoid nephrotoxic agents (NSAIDS) -Upon discharge recommend starting patient with Lasix 20mg daily , currently no CHF symptoms -Monitor strict I and O -f/u 24 hr urine for CrCl and 24 hr urine for protein electrophoresis --> neg Case and plan was reviewed and discussed in detail with Dr Powers.
[2018-01-22 10:55] LABS: BASO % 0.7 % (0.0-2.0); EOS # 0.1 K/uL (0.0-0.7); EOS % 1.3 % (0.0-4.0); HEMOGLOBIN 9.5 g/dL (12.0-18.0); LYMPH # 0.8 K/uL (1.0-4.3); LYMPH % 13.4 % (20.0-40.0); MEAN CORPUSCULAR HEMOGLOBIN 28.8 pg (27.0-31.0); MONO # 0.5 K/uL (0.0-0.8); MONO % 8.6 % (0.0-10.0); NEUT # 4.3 K/uL (1.8-7.0); RBC 3.3 Mil/uL (4.40-5.90); RED CELL DISTRIBUTION WIDTH 16.9 % (11.5-14.5); WHITE BLOOD COUNT 5.7 K/uL (4.8-10.8)
[2018-01-22 11:07] LABS: ALB/GLOB RATIO 1.2 (1.0-2.1); ALBUMIN 3.8 g/dL (3.5-5.0); CALCIUM 9.5 mg/dl (8.6-10.4)
[2018-01-22] MEDS: Sod Polystyrene Sulf 15 gm/60 ml Susp PO SCH ×2 (14:08→18:18)
[2018-01-22 17:12] VITALS: BP 104/66; PULSE 77; TEMP 97.3; O2SAT 96
[2018-01-22] MEDS ORDERED: Influenza Vaccine 60 MCG/0.5 ML SYR (3 yr & up) IM ONE (18:17)
--- NOTE | 2018-01-22 19:12 | CP.PCM.DIS ---
<Mateo Chaidez - Last Filed: 01/22/18 19:09> Provider - Provider Date of Admission: 01/05/18 21:00 Attending physician: Ronal Thomason DO Primary care physician: None Consults: Cardiology - Dr. Delgado Electrophysiology - Dr. Mi Nephrology - Dr. Powers Time Spent in preparation of Discharge (in minutes): 45 Diagnosis - Discharge Diagnosis (1) Acute pulmonary edema Status: Acute (2) Acute renal failure Status: Acute (3) Heart failure, systolic, with acute decompensation Status: Chronic (4) Hyperglycemia Status: Chronic (5) Hypotension Status: Acute (6) NSTEMI (non-ST elevated myocardial infarction) Status: Acute (7) Diabetes mellitus, type 2 Status: Chronic Hospital Course - Lab Results Lab Results: Micro Results 01/16/18 07:00 Naris MRSA Culture - Final MRSA NOT DETECTED 01/05/18 20:48 Blood Blood Culture - Final NO GROWTH AFTER 5 DAYS 01/05/18 20:48 Blood Gram Stain - Final TEST NOT PERFORMED 01/05/18 20:18 Blood Blood Culture - Final NO GROWTH AFTER 5 DAYS 01/05/18 20:18 Blood Gram Stain - Final TEST NOT PERFORMED 01/09/18 14:46 Urine,Anne Urine Culture - Final No Growth (<1,000 CFU/ML) 01/06/18 07:20 Leg - Right Gram Stain - Final 01/06/18 07:20 Leg - Right Wound Culture - Final Proteus Mirabilis Klebsiella Pneumoniae Ssp Pneu Enterococcus Faecalis 01/05/18 Unknown Nose MRSA Culture (Admit) - Final MRSA NOT DETECTED 01/06/18 11:41 Urine Urine Culture - Final No Growth (<1,000 CFU/ML) Most Recent Lab Values WBC 5.7 K/uL (4.8-10.8) 01/22/18 10:47 RBC 3.30 Mil/uL (4.40-5.90) L 01/22/18 10:47 Hgb 9.5 g/dL (12.0-18.0) L 01/22/18 10:47 Hct 29.7 % (35.0-51.0) L 01/22/18 10:47 MCV 90.0 fL (80.0-94.0) 01/22/18 10:47 MCH 28.8 pg (27.0-31.0) 01/22/18 10:47 MCHC 32.0 g/dL (33.0-37.0) L 01/22/18 10:47 RDW 16.9 % (11.5-14.5) H 01/22/18 10:47 Plt Count 156 K/uL (130-400) 01/22/18 10:47 MPV 9.0 fL (7.2-11.7) 01/22/18 10:47 Neut % (Auto) 76.0 % (50.0-75.0) H 01/22/18 10:47 Lymph % (Auto) 13.4 % (20.0-40.0) L 01/22/18 10:47 [place] % (Auto) 8.6 % (0.0-10.0) 01/22/18 10:47 Eos % (Auto) 1.3 % (0.0-4.0) 01/22/18 10:47 Baso % (Auto) 0.7 % (0.0-2.0) 01/22/18 10:47 Neut # (Auto) 4.3 K/uL (1.8-7.0) 01/22/18 10:47 Lymph # (Auto) 0.8 K/uL (1.0-4.3) L 01/22/18 10:47 [place] # (Auto) 0.5 K/uL (0.0-0.8) 01/22/18 10:47 Eos # (Auto) 0.1 K/uL (0.0-0.7) 01/22/18 10:47 Baso # (Auto) 0.0 K/uL (0.0-0.2) 01/22/18 10:47 Neutrophils % (Manual) 91 % (50-75) H 01/12/18 09:47 Band Neutrophils % 1 % (0-2) 01/05/18 20:09 Lymphocytes % (Manual) 5 % (20-40) L 01/12/18 09:47 Monocytes % (Manual) 4 % (0-10) 01/12/18 09:47 Platelet Estimate Normal (NORMAL) 01/12/18 09:47 Large Platelets Present 01/10/18 06:15 Polychromasia Slight 01/12/18 09:47 Hypochromasia (manual) Slight 01/12/18 09:47 Poikilocytosis (manual Slight 01/08/18 06:16 Anisocytosis (manual) Slight 01/12/18 09:47 Target Cells Slight 01/08/18 06:16 Ovalocytes Slight 01/07/18 10:31 [place] Cells Slight 01/08/18 06:16 PT 16.0 SECONDS (9.7-12.2) H 01/05/18 20:09 INR 1.5 01/05/18 20:09 APTT 55 SECONDS (21-34) H 01/15/18 06:55 Puncture Site Lba 01/05/18 20:40 pCO2 26 mm/Hg (35-45) L 01/05/18 20:40 pO2 123 mm/Hg (80-100) H 01/05/18 20:40 HCO3 16.8 mmol/L (21-28) L 01/05/18 20:40 ABG pH 7.33 (7.35-7.45) L 01/05/18 20:40 ABG Total CO2 14.5 mmol/L (22-28) L 01/05/18 20:40 ABG O2 Saturation 98.9 % (95-98) H 01/05/18 20:40 ABG Base Excess -10.5 mmol/L (-2.0-3.0) L 01/05/18 20:40 Kade Test Pos 01/05/18 20:40 ABG Potassium 4.1 mmol/L (3.6-5.2) 01/05/18 20:40 A-a O2 Difference 130.0 mm/Hg 01/05/18 20:40 Respiratory Index 1.1 01/05/18 20:40 Sodium 139.0 mmol/l (132-148) 01/05/18 20:40 Chloride 110.0 mmol/L (98-107) H 01/05/18 20:40 Glucose 161 mg/dl (75-110) H 01/05/18 20:40 Lactate 5.0 mmol/L (0.7-2.1) H* 01/05/18 20:40 FiO2 40.0 % 01/05/18 20:40 Inspiratory BiPAP 18 01/05/18 20:40 Expiratory BiPAP 9 01/05/18 20:40 Crit Value Called To Dr anderson 01/05/18 20:40 Crit Value Called By Gerardo khan 01/05/18 20:40 Crit Value Read Back Y 01/05/18 20:40 Blood Gas Notified Time 204501/05/18 20:40 Sodium 144 mmol/L (132-148) 01/22/18 10:47 Potassium 5.6 mmol/L (3.6-5.2) H 01/22/18 10:47 Chloride 106 mmol/L (98-107) 01/22/18 10:47 Carbon Dioxide 29 mmol/L (22-30) 01/22/18 10:47 Anion Gap 14 (10-20) 01/22/18 10:47 BUN 56 mg/dL (9-20) H 01/22/18 10:47 Creatinine 2.2 mg/dL (0.8-1.5) H 01/22/18 10:47 Est GFR ( Amer) 36 01/22/18 10:47 Est GFR (Non-Af Amer) 30 01/22/18 10:47 POC Glucose (mg/dL) 255 mg/dL (65-110) H 01/22/18 16:37 Random Glucose 260 mg/dL (75-110) H 01/22/18 10:47 Hemoglobin A1c 7.7 % (4.2-6.5) H 01/07/18 06:20 Lactic Acid 2.5 mmol/L (0.7-2.1) H 01/06/18 14:25 Uric Acid 4.9 mg/dL (3.5-8.5) 01/09/18 16:30 Calcium 9.5 mg/dl (8.6-10.4) 01/22/18 10:47 Phosphorus 2.9 mg/dL (2.5-4.5) 01/20/18 07:09 Magnesium 1.7 mg/dL (1.6-2.3) 01/20/18 07:09 Iron 39 ug/dL (49-181) L 01/21/18 13:45 TIBC 355 ug/dL (250-450) 01/21/18 13:45 % Saturation 11 (20-55) L 01/21/18 13:45 Ferritin 178.0 ng/mL 01/21/18 13:45 Total Bilirubin 0.7 mg/dL (0.2-1.3) 01/22/18 10:47 AST 103 U/L (17-59) H 01/22/18 10:47 ALT 138 U/L (21-72) H 01/22/18 10:47 Alkaline Phosphatase 585 U/L (38-126) H 01/22/18 10:47 Total Creatine Kinase 23 U/L (55-170) L 01/09/18 16:30 Troponin I 3.9600 ng/mL (0.00-0.120) H* 01/07/18 16:48 NT-Pro-B Natriuret Pep 7980 pg/mL (0-900) H 01/08/18 18:20 Total Protein 7.1 g/dL (6.3-8.3) 01/22/18 10:47 Total Protein (PEP) 5.9 g/dL (6.1-8.1) L 01/07/18 11:30 Albumin 3.8 g/dL (3.5-5.0) 01/22/18 10:47 Albumin (PEP) 2.7 g/dL (3.8-4.8) L 01/07/18 11:30 Globulin 3.3 gm/dL (2.2-3.9) 01/22/18 10:47 Albumin/Globulin Ratio 1.2 (1.0-2.1) 01/22/18 10:47 Uvujf-5-Fjbscwgec 0.5 g/dL (0.2-0.3) H 01/07/18 11:30 Biumc-2-Vrwqqazzf 0.9 g/dL (0.5-0.9) 01/07/18 11:30 Tcee-7-Ifhpvaxa 0.4 g/dL (0.4-0.6) 01/07/18 11:30 Kgmy-2-Qlfkmyhj 0.4 g/dL (0.2-0.5) 01/07/18 11:30 Gamma Globulins 1.1 g/dL (0.8-1.7) 01/07/18 11:30 Abnorm Protein Band 1 TEST NOT PERFORMED 01/07/18 11:30 Abnorm Protein Band 2 TEST NOT PERFORMED 01/07/18 11:30 Abnorm Protein Band 3 TEST NOT PERFORMED 01/07/18 11:30 Procalcitonin 1.18 NG/ML (0.19-0.49) H 01/06/18 14:25 TSH 3rd Generation 1.98 mIU/L (0.46-4.68) 01/07/18 06:20 Arterial Blood Potassium 4.1 mmol/L (3.6-5.2) 01/05/18 20:40 Urine Color Yellow (YELLOW) 01/18/18 21:22 Urine Clarity Clear (Clear) 01/18/18 21:22 Urine pH 5.0 (5.0-8.0) 01/18/18 21:22 Ur Specific [place] 1.010 (1.003-1.030) 01/18/18 21: Urine Protein Negative mg/dL (NEGATIVE) 01/18/18 21:22 Urine Glucose (UA) Normal mg/dL (Normal) 01/18/18 21: Urine Ketones Negative mg/dL (NEGATIVE) 01/18/18 21:22 Urine Blood 2+ (NEGATIVE) H 01/18/18 21:22 Urine Nitrate Negative (NEGATIVE) 01/18/18 21: Urine Bilirubin Negative (NEGATIVE) 01/18/18 21:22 Urine Urobilinogen Normal mg/dL (0.2-1.0) 01/18/18 21:22 Ur Leukocyte Esterase Neg Julia/uL (Negative) 01/18/18 21:22 Urine WBC (Auto) 3 /hpf (0-5) 01/18/18 21:22 Urine RBC (Auto) 9 /hpf (0-3) H 01/18/18 21:22 Ur Squamous Epith Cells < 1 /hpf (0-5) 01/09/18 14:46 Amorphous Sediment Rare /ul (<OCC) H 01/06/18 11:41 Urine Bacteria Rare (<OCC) 01/18/18 21:22 Ur Random Creatinine 29.1 mg/dL 01/08/18 06:16 U Random Total Protein 4798 mg/g creat (22-128) H 01/06/18 15:29 Ur Random Sodium 94 mmol/L 01/08/18 06:16 Urine Collection Time 24 HRS 01/20/18 14:56 Urine Total Volume 2150 mL 01/20/18 14:56 Urine Creatinine 0.51 g/L 01/20/18 14:56 Ur Creatinine 24 Hour 1.10 g/24 h (0.63-2.50) 01/20/18 14:56 Creatinine Clearance 24.0 mL/min (107-139) L 01/20/18 14:56 Urine Microalbumin 46.9 mg/dL 01/06/18 15:29 Microalb/Creat Ratio 1737 (<30) H 01/06/18 15:29 Ur Total Protein 24 Hr 525 mg/24 h (<150) H 01/20/18 14:56 Protein/Creat Ratio 24h 478 mg/g creat (</=84) H 01/20/18 14:56 Urine Total Protein 244 mg/L (50-250) 01/20/18 14:56 Random Vancomycin 6.4 ug/mL 01/07/18 06:20 Urine Opiates Screen Negative (NEGATIVE) 01/06/18 11:41 Urine Methadone Screen Negative (NEGATIVE) 01/06/18 11:41 Ur Barbiturates Screen Negative (NEGATIVE) 01/06/18 11:41 Ur Phencyclidine Scrn Negative (NEGATIVE) 01/06/18 11:41 Ur Amphetamines Screen Negative (NEGATIVE) 01/06/18 11:41 U Benzodiazepines Scrn Negative (NEGATIVE) 01/06/18 11:41 U Oth Cocaine Metabols Negative (NEGATIVE) 01/06/18 11:41 U Cannabinoids Screen Negative (NEGATIVE) 01/06/18 11:41 B-Hydroxybutyrate 0.24 mM (0.02-0.27) 01/05/18 20:09 MARY & SPEP Interp See note 01/07/18 11:30 Serum Immunofixation Not detected (Not Detected) 01/07/18 11:30 MONICA Screen Negative (Negative) 01/07/18 11:30 MONICA Titer TEST NOT PERFORMED 01/07/18 11:30 MONICA Titer 2 TEST NOT PERFORMED 01/07/18 11:30 MONICA Pattern TEST NOT PERFORMED 01/07/18 11:30 MONICA Pattern 2 TEST NOT PERFORMED 01/07/18 11:30 ANCA Screen Negative (NEGATIVE) 01/07/18 11:30 c-ANCA Titer TNP 01/07/18 11:30 Proteinase 3 (PR3) <1.0 AI (<1.0) 01/10/18 07:46 p-ANCA Titer TNP 01/07/18 11:30 Atypical p-ANCA Titer TNP 01/07/18 11:30 Myeloperoxidase Ab <1.0 AI (<1.0) 01/10/18 07:46 Glomerular Base Mem IgG <1.0 AI (<1.0) 01/10/18 07:46 Complement C3 104.0 mg/dL (88.0-165.0) 01/07/18 06:20 Complement C4 23.7 mg/dL (14.0-44.0) 01/07/18 06:20 [place]/Lambda Light Chain see note 01/07/18 11:30 Free [place] Light Chains 101.7 mg/L (3.3-19.4) H 01/07/18 11:30 Free [place] Light Chain 47.0 mg/L (5.7-26.3) H 01/07/18 11:30 Free [place]/Lambda Ratio 2.16 (0.26-1.65) H 01/07/18 11:30 RPR Nonreactive (NONREACTIVE) 01/07/18 06:20 Hep Bs Antigen Negative (NEGATIVE) 01/06/18 17:35 Hep Bs Antibody Negative (NEGATIVE) 01/06/18 17:35 Hep B Core IgM Ab Negative (NEGATIVE) 01/06/18 17:35 Hepatitis C Antibody Negative (NEGATIVE) 01/06/18 17:35 HIV 1&2 Ag/Ab, 4th Gen Nonreactive (Nonreactive) 01/10/18 17:49 - Hospital Course Hospital Course: Medicine Discharge Summary for Hospitalist Service Mateo Chaidez DO PGY-1, [employer] 67 yo M w/ PMHx of CAD w/ NSTEMI here 11/25/17 and s/p CABG @ [facility] within last month, DM2, admitted to ICU w/ 3 days of SOB. Patient did not remember which medications he takes, but stated he was compliant. Pt denied chest pain, nausea, vomiting, diarrhea. Pt was found to have pulmonary edema/pwiny-lf-xwsulzz CHF exacerbation, and acute renal failure on work-up on ICU. Pt received hemodialysis sessions x4 while inpatient. Had repeat cardiac cath on 01/15/18 which demonstrated severe [place] triple vessel disease, patent grafts, ischemic cardiomyopathy, and EF of 45%. Pt had loop recorder placement by Elecrtophysiology on 01/16/18 which pt tolerated well without complications. EKG on admission demonstrated 1st degree heart block and bradycardia with no acute St-T wave changes. Echo demonstrated EF of 34% and impaired systolic function. Pt also had elevated lactate and procalcitonin, and presumed wound infection from R leg s/p vein harvest for CABG. Pt was given vanco in ED, and given Cipro for treatment of infection while inpatient. Wound cx 01/06/18 grew Proteus Mirabilis, Klebsiella pneumoniae, Strep pneumo, and Enterococcus faecalis. Pt was discharged to home in stable condition on 01/22/18 with instructions to follow with [facility] ([facility] PCP), Dr. Powers, and Dr. Mi ([facility]) within 1-2 weeks of discharge. Pt was given 30 day supplies of current medications on discharge. Per discussion with social work, pt admitted to being homeless currently, pt was given voucher for reduced cost of prescriptions on discharge. Attempted to call pt's next of kin, son, regarding d/c plan but was unable to reach him. Discharge Exam - Head Exam Head Exam: ATRAUMATIC, NORMOCEPHALIC - Eye Exam Eye Exam: EOMI, Normal appearance, PERRL - Respiratory Exam Respiratory Exam: Clear to PA & Lateral, NORMAL BREATHING PATTERN, UNREMARKABLE - Cardiovascular Exam Cardiovascular Exam: REGULAR RHYTHM, +S1, +S2. absent: Gallop, Rubs, Systolic Murmur - GI/Abdominal Exam GI & Abdominal Exam: Normal Bowel Sounds, Soft, Unremarkable. absent: Distended, Firm, Guarding, Rigid, Tenderness - Neurological Exam Neurological exam: Alert, CN II-XII Intact, Oriented x3 - Skin Skin Exam: Dry, Intact, Normal Color, Warm Discharge Plan - Discharge Medications Prescriptions: RX: Aspirin [Aspirin Chewable] 81 mg PO DAILY #30 chew RX: Atorvastatin [Lipitor] 80 mg PO DAILY #30 tab RX: Carvedilol [Coreg] 3.125 mg PO BID #60 tab RX: Clopidogrel [Plavix] 75 mg PO DAILY #30 tab RX: Finasteride [Proscar] 5 mg PO DAILY #30 tab Furosemide [Lasix] 20 mg PO DAILY #30 tablet RX: Glimepiride [Amaryl] 1 mg AL DAILY #30 tab RX: Mirtazapine [Remeron] 7.5 mg PO DAILY #30 tab RX: Tamsulosin [Flomax] 0.4 mg PO DAILY #30 cap - Follow Up Plan Condition: CRITICAL Disposition: HOME/ ROUTINE Instructions: Heart Healthy Diet, Implantable Loop Recorder, Heart Failure, Adult (DC), Heart Attack (DC), Chronic Kidney Disease (DC), Low Blood Pressure (DC), Acute Kidney Injury (DC), Renal Failure Diet (DC) Additional Instructions: Patient medically stable for discharge to home. Please follow-up at [email or web address] ([facility] - 1st floor) within 1 week of [address] Mora (Primary Care Physician) and Dr. Powers (Nephrology). Please follow-up in 1-[address] Mi (Elect[facility]) for management of Loop Recorder. Please follow-up with Dr. Delgado (Cardiology) within 1 week of discharge. Please take medications as prescribed. Note new doses of medications and medications that have been stopped. Please take the medications you were given prescriptions for and get refills on appointment with Dr. Mora. Should symptoms recur or worsen, please call your primary care physician or report to your nearest emergency department. Referrals: Sergio Delgado MD [Staff Provider] - Ector Dumont MD [Staff Provider] - Travis Mi MD [Staff Provider] - Maynor Powers MD [Staff Provider] - <Ronal Thomason - Last Filed: 01/23/18 07:34> Provider - Provider Date of Admission: 01/05/18 21:00 Attending physician: Ronal Thomason DO Hospital Course - Lab Results Lab Results: Micro Results 01/16/18 07:00 Naris MRSA Culture - Final MRSA NOT DETECTED 01/05/18 20:48 Blood Blood Culture - Final NO GROWTH AFTER 5 DAYS 01/05/18 20:48 Blood Gram Stain - Final TEST NOT PERFORMED 01/05/18 20:18 Blood Blood Culture - Final NO GROWTH AFTER 5 DAYS 01/05/18 20:18 Blood Gram Stain - Final TEST NOT PERFORMED 01/09/18 14:46 Urine,Anne Urine Culture - Final No Growth (<1,000 CFU/ML) 01/06/18 07:20 Leg - Right Gram Stain - Final 01/06/18 07:20 Leg - Right Wound Culture - Final Proteus Mirabilis Klebsiella Pneumoniae Ssp Pneu Enterococcus Faecalis 01/05/18 Unknown Nose MRSA Culture (Admit) - Final MRSA NOT DETECTED 01/06/18 11:41 Urine Urine Culture - Final No Growth (<1,000 CFU/ML) Most Recent Lab Values WBC 5.7 K/uL (4.8-10.8) 01/22/18 10:47 RBC 3.30 Mil/uL (4.40-5.90) L 01/22/18 10:47 Hgb 9.5 g/dL (12.0-18.0) L 01/22/18 10:47 Hct 29.7 % (35.0-51.0) L 01/22/18 10:47 MCV 90.0 fL (80.0-94.0) 01/22/18 10:47 MCH 28.8 pg (27.0-31.0) 01/22/18 10:47 MCHC 32.0 g/dL (33.0-37.0) L 01/22/18 10:47 RDW 16.9 % (11.5-14.5) H 01/22/18 10:47 Plt Count 156 K/uL (130-400) 01/22/18 10:47 MPV 9.0 fL (7.2-11.7) 01/22/18 10:47 Neut % (Auto) 76.0 % (50.0-75.0) H 01/22/18 10:47 Lymph % (Auto) 13.4 % (20.0-40.0) L 01/22/18 10:47 [place] % (Auto) 8.6 % (0.0-10.0) 01/22/18 10:47 Eos % (Auto) 1.3 % (0.0-4.0) 01/22/18 10:47 Baso % (Auto) 0.7 % (0.0-2.0) 01/22/18 10:47 Neut # (Auto) 4.3 K/uL (1.8-7.0) 01/22/18 10:47 Lymph # (Auto) 0.8 K/uL (1.0-4.3) L 01/22/18 10:47 [place] # (Auto) 0.5 K/uL (0.0-0.8) 01/22/18 10:47 Eos # (Auto) 0.1 K/uL (0.0-0.7) 01/22/18 10:47 Baso # (Auto) 0.0 K/uL (0.0-0.2) 01/22/18 10:47 Neutrophils % (Manual) 91 % (50-75) H 01/12/18 09:47 Band Neutrophils % 1 % (0-2) 01/05/18 20:09 Lymphocytes % (Manual) 5 % (20-40) L 01/12/18 09:47 Monocytes % (Manual) 4 % (0-10) 01/12/18 09:47 Platelet Estimate Normal (NORMAL) 01/12/18 09:47 Large Platelets Present 01/10/18 06:15 Polychromasia Slight 01/12/18 09:47 Hypochromasia (manual) Slight 01/12/18 09:47 Poikilocytosis (manual Slight 01/08/18 06:16 Anisocytosis (manual) Slight 01/12/18 09:47 Target Cells Slight 01/08/18 06:16 Ovalocytes Slight 01/07/18 10:31 Shahrzad Cells Slight 01/08/18 06:16 PT 16.0 SECONDS (9.7-12.2) H 01/05/18 20:09 INR 1.5 01/05/18 20:09 APTT 55 SECONDS (21-34) H 01/15/18 06:55 Puncture Site Lba 01/05/18 20:40 pCO2 26 mm/Hg (35-45) L 01/05/18 20:40 pO2 123 mm/Hg (80-100) H 01/05/18 20:40 HCO3 16.8 mmol/L (21-28) L 01/05/18 20:40 ABG pH 7.33 (7.35-7.45) L 01/05/18 20:40 ABG Total CO2 14.5 mmol/L (22-28) L 01/05/18 20:40 ABG O2 Saturation 98.9 % (95-98) H 01/05/18 20:40 ABG Base Excess -10.5 mmol/L (-2.0-3.0) L 01/05/18 20:40 Kade Test Pos 01/05/18 20:40 ABG Potassium 4.1 mmol/L (3.6-5.2) 01/05/18 20:40 A-a O2 Difference 130.0 mm/Hg 01/05/18 20:40 Respiratory Index 1.1 01/05/18 20:40 Sodium 139.0 mmol/l (132-148) 01/05/18 20:40 Chloride 110.0 mmol/L (98-107) H 01/05/18 20:40 Glucose 161 mg/dl (75-110) H 01/05/18 20:40 Lactate 5.0 mmol/L (0.7-2.1) H* 01/05/18 20:40 FiO2 40.0 % 01/05/18 20:40 Inspiratory BiPAP 18 01/05/18 20:40 Expiratory BiPAP 9 01/05/18 20:40 Crit Value Called To Dr anderson 01/05/18 20:40 Crit Value Called By Gerardo khan 01/05/18 20:40 Crit Value Read Back Y 01/05/18 20:40 Blood Gas Notified Time 204501/05/18 20:40 Sodium 144 mmol/L (132-148) 01/22/18 10:47 Potassium 5.6 mmol/L (3.6-5.2) H 01/22/18 10:47 Chloride 106 mmol/L (98-107) 01/22/18 10:47 Carbon Dioxide 29 mmol/L (22-30) 01/22/18 10:47 Anion Gap 14 (10-20) 01/22/18 10:47 BUN 56 mg/dL (9-20) H 01/22/18 10:47 Creatinine 2.2 mg/dL (0.8-1.5) H 01/22/18 10:47 Est GFR ( Amer) 36 01/22/18 10:47 Est GFR (Non-Af Amer) 30 01/22/18 10:47 POC Glucose (mg/dL) 255 mg/dL (65-110) H 01/22/18 16:37 Random Glucose 260 mg/dL (75-110) H 01/22/18 10:47 Hemoglobin A1c 7.7 % (4.2-6.5) H 01/07/18 06:20 Lactic Acid 2.5 mmol/L (0.7-2.1) H 01/06/18 14:25 Uric Acid 4.9 mg/dL (3.5-8.5) 01/09/18 16:30 Calcium 9.5 mg/dl (8.6-10.4) 01/22/18 10:47 Phosphorus 2.9 mg/dL (2.5-4.5) 01/20/18 07:09 Magnesium 1.7 mg/dL (1.6-2.3) 01/20/18 07:09 Iron 39 ug/dL (49-181) L 01/21/18 13:45 TIBC 355 ug/dL (250-450) 01/21/18 13:45 % Saturation 11 (20-55) L 01/21/18 13:45 Ferritin 178.0 ng/mL 01/21/18 13:45 Total Bilirubin 0.7 mg/dL (0.2-1.3) 01/22/18 10:47 AST 103 U/L (17-59) H 01/22/18 10:47 ALT 138 U/L (21-72) H 01/22/18 10:47 Alkaline Phosphatase 585 U/L (38-126) H 01/22/18 10:47 Total Creatine Kinase 23 U/L (55-170) L 01/09/18 16:30 Troponin I 3.9600 ng/mL (0.00-0.120) H* 01/07/18 16:48 NT-Pro-B Natriuret Pep 7980 pg/mL (0-900) H 01/08/18 18:20 Total Protein 7.1 g/dL (6.3-8.3) 01/22/18 10:47 Total Protein (PEP) 5.9 g/dL (6.1-8.1) L 01/07/18 11:30 Albumin 3.8 g/dL (3.5-5.0) 01/22/18 10:47 Albumin (PEP) 2.7 g/dL (3.8-4.8) L 01/07/18 11:30 Globulin 3.3 gm/dL (2.2-3.9) 01/22/18 10:47 Albumin/Globulin Ratio 1.2 (1.0-2.1) 01/22/18 10:47 Esvwj-8-Acrlzyeef 0.5 g/dL (0.2-0.3) H 01/07/18 11:30 Pfxmf-1-Lbjggeovb 0.9 g/dL (0.5-0.9) 01/07/18 11:30 Fszm-8-Ilpwjswj 0.4 g/dL (0.4-0.6) 01/07/18 11:30 Riwm-4-Rcgwbiwb 0.4 g/dL (0.2-0.5) 01/07/18 11:30 Gamma Globulins 1.1 g/dL (0.8-1.7) 01/07/18 11:30 Abnorm Protein Band 1 TEST NOT PERFORMED 01/07/18 11:30 Abnorm Protein Band 2 TEST NOT PERFORMED 01/07/18 11:30 Abnorm Protein Band 3 TEST NOT PERFORMED 01/07/18 11:30 Procalcitonin 1.18 NG/ML (0.19-0.49) H 01/06/18 14:25 TSH 3rd Generation 1.98 mIU/L (0.46-4.68) 01/07/18 06:20 Arterial Blood Potassium 4.1 mmol/L (3.6-5.2) 01/05/18 20:40 Urine Color Yellow (YELLOW) 01/18/18 21:22 Urine Clarity Clear (Clear) 01/18/18 21: Urine pH 5.0 (5.0-8.0) 01/18/18 21: Ur Specific [place] 1.010 (1.003-1.030) 01/18/18 21: Urine Protein Negative mg/dL (NEGATIVE) 01/18/18 21: Urine Glucose (UA) Normal mg/dL (Normal) 01/18/18 21: Urine Ketones Negative mg/dL (NEGATIVE) 01/18/18 21: Urine Blood 2+ (NEGATIVE) H 01/18/18 21: Urine Nitrate Negative (NEGATIVE) 01/18/18 21: Urine Bilirubin Negative (NEGATIVE) 01/18/18 21: Urine Urobilinogen Normal mg/dL (0.2-1.0) 01/18/18 21: Ur Leukocyte Esterase Neg Julia/uL (Negative) 01/18/18 21: Urine WBC (Auto) 3 /hpf (0-5) 01/18/18 21: Urine RBC (Auto) 9 /hpf (0-3) H 01/18/18 21: Ur Squamous Epith Cells < 1 /hpf (0-5) 01/09/18 14:46 Amorphous Sediment Rare /ul (<OCC) H 01/06/18 11:41 Urine Bacteria Rare (<OCC) 01/18/18 21:22 Ur Random Creatinine 29.1 mg/dL 01/08/18 06:16 U Random Total Protein 4798 mg/g creat (22-128) H 01/06/18 15:29 Ur Random Sodium 94 mmol/L 01/08/18 06:16 Urine Collection Time 24 HRS 01/20/18 14:56 Urine Total Volume 2150 mL 01/20/18 14:56 Urine Creatinine 0.51 g/L 01/20/18 14:56 Ur Creatinine 24 Hour 1.10 g/24 h (0.63-2.50) 01/20/18 14:56 Creatinine Clearance 24.0 mL/min (107-139) L 01/20/18 14:56 Urine Microalbumin 46.9 mg/dL 01/06/18 15:29 Microalb/Creat Ratio 1737 (<30) H 01/06/18 15:29 Ur Total Protein 24 Hr 525 mg/24 h (<150) H 01/20/18 14:56 Protein/Creat Ratio 24h 478 mg/g creat (</=84) H 01/20/18 14:56 Urine Total Protein 244 mg/L (50-250) 01/20/18 14:56 Random Vancomycin 6.4 ug/mL 01/07/18 06:20 Urine Opiates Screen Negative (NEGATIVE) 01/06/18 11:41 Urine Methadone Screen Negative (NEGATIVE) 01/06/18 11:41 Ur Barbiturates Screen Negative (NEGATIVE) 01/06/18 11:41 Ur Phencyclidine Scrn Negative (NEGATIVE) 01/06/18 11:41 Ur Amphetamines Screen Negative (NEGATIVE) 01/06/18 11:41 U Benzodiazepines Scrn Negative (NEGATIVE) 01/06/18 11:41 U Oth Cocaine Metabols Negative (NEGATIVE) 01/06/18 11:41 U Cannabinoids Screen Negative (NEGATIVE) 01/06/18 11:41 B-Hydroxybutyrate 0.24 mM (0.02-0.27) 01/05/18 20:09 MARY & SPEP Interp See note 01/07/18 11:30 Serum Immunofixation Not detected (Not Detected) 01/07/18 11:30 MONICA Screen Negative (Negative) 01/07/18 11:30 MONICA Titer TEST NOT PERFORMED 01/07/18 11:30 MONICA Titer 2 TEST NOT PERFORMED 01/07/18 11:30 MONICA Pattern TEST NOT PERFORMED 01/07/18 11:30 MONICA Pattern 2 TEST NOT PERFORMED 01/07/18 11:30 ANCA Screen Negative (NEGATIVE) 01/07/18 11:30 c-ANCA Titer TNP 01/07/18 11:30 Proteinase 3 (PR3) <1.0 AI (<1.0) 01/10/18 07:46 p-ANCA Titer TNP 01/07/18 11:30 Atypical p-ANCA Titer TNP 01/07/18 11:30 Myeloperoxidase Ab <1.0 AI (<1.0) 01/10/18 07:46 Glomerular Base Mem IgG <1.0 AI (<1.0) 01/10/18 07:46 Complement C3 104.0 mg/dL (88.0-165.0) 01/07/18 06:20 Complement C4 23.7 mg/dL (14.0-44.0) 01/07/18 06:20 [place]/[facility] [employer] [place] see note 01/07/18 11:30 Free [place] Light Chains 101.7 mg/L (3.3-19.4) H 01/07/18 11:30 Free [place] Light Chain 47.0 mg/L (5.7-26.3) H 01/07/18 11:30 Free [place]/Lambda Ratio 2.16 (0.26-1.65) H 01/07/18 11:30 RPR Nonreactive (NONREACTIVE) 01/07/18 06:20 Hep Bs Antigen Negative (NEGATIVE) 01/06/18 17:35 Hep Bs Antibody Negative (NEGATIVE) 01/06/18 17:35 Hep B Core IgM Ab Negative (NEGATIVE) 01/06/18 17:35 Hepatitis C Antibody Negative (NEGATIVE) 01/06/18 17:35 HIV 1&2 Ag/Ab, 4th Gen Nonreactive (Nonreactive) 01/10/18 17:49 Attending/Attestation - Attestation I have personally seen and examined this patient.: Yes I have fully participated in the care of the patient.: Yes I have reviewed all pertinent clinical information, including history, physical exam and plan: Yes Notes (Text): 01/23/18 07:27 Medical attending: Patient was seen and examined by me, agree with the above note by the resident. The patient was not in any acute distress when I first came and saw the patient. The patient is actively walking around in the hallway. He denied chest pain and denied shortness of breath. He had removal of the dialysis catheter. He is producing urine fine and also creatine is decreasing as well. I was later notified the patient was actually homeless - we tried calling some of the numbers in the chart to reach out to family however these numbers did not reach a voicemail. Because of this, the patient was provided with medications to go with as well as instructions to take lasix and follow up at [facility] clinic thank you Ronal Thomason
[2018-01-23 15:18] LABS: ALBUMIN 38.6 Relative %; ALPHA-1 GLOBULIN 4.5 Relative %
== END 2018-01-22 18:39 | disposition home or self-care (01) | DRG 260 ==
LOC: C.ER 19:42 → C.9E 21:00 → C.9I 22:04 → C.5S 01-16 05:56
PROVIDERS: ADMIT Hospitalist; ATTEND Hospitalist
PROC: 5A09357 Assistance with Respiratory Ventilation, Less than 24 Consecutive Hours, Continuous Positive Airway Pressure (ICD-10-PCS; 2018-01-05)
PROC: 5A1D70Z Performance of Urinary Filtration, Intermittent, Less than 6 Hours Per Day (ICD-10-PCS; 2018-01-06)
PROC: 06HM33Z Insertion of Infusion Device into Right Femoral Vein, Percutaneous Approach (ICD-10-PCS; 2018-01-06)
PROC: 5A1D70Z Performance of Urinary Filtration, Intermittent, Less than 6 Hours Per Day (ICD-10-PCS; 2018-01-08)
PROC: 5A1D70Z Performance of Urinary Filtration, Intermittent, Less than 6 Hours Per Day (ICD-10-PCS; 2018-01-11)
PROC: 4A023N7 Measurement of Cardiac Sampling and Pressure, Left Heart, Percutaneous Approach (ICD-10-PCS; 2018-01-15)
PROC: B2181ZZ Fluoroscopy of Left Internal Mammary Bypass Graft using Low Osmolar Contrast (ICD-10-PCS; 2018-01-15)
PROC: B2151ZZ Fluoroscopy of Left Heart using Low Osmolar Contrast (ICD-10-PCS; 2018-01-15)
PROC: B2111ZZ Fluoroscopy of Multiple Coronary Arteries using Low Osmolar Contrast (ICD-10-PCS; 2018-01-15)
PROC: B2121ZZ Fluoroscopy of Single Coronary Artery Bypass Graft using Low Osmolar Contrast (ICD-10-PCS; 2018-01-15)
PROC: 05HM33Z Insertion of Infusion Device into Right Internal Jugular Vein, Percutaneous Approach (ICD-10-PCS; 2018-01-15)
PROC: 0JH632Z Insertion of Monitoring Device into Chest Subcutaneous Tissue and Fascia, Percutaneous Approach (ICD-10-PCS; principal; 2018-01-16)
PROC: 5A1D70Z Performance of Urinary Filtration, Intermittent, Less than 6 Hours Per Day (ICD-10-PCS; 2018-01-16)
DX: I21.4 Non-ST elevation (NSTEMI) myocardial infarction (principal); I50.23 Acute on chronic systolic (congestive) heart failure; J96.01 Acute respiratory failure with hypoxia; N17.0 Acute kidney failure with tubular necrosis; I13.2 Hypertensive heart and chronic kidney disease with heart failure and with stage 5 chronic kidney disease, or end stage renal disease; N18.5 Chronic kidney disease, stage 5; I25.10 Atherosclerotic heart disease of native coronary artery without angina pectoris; I25.82 Chronic total occlusion of coronary artery; I25.5 Ischemic cardiomyopathy; E87.2 Acidosis; E87.5 Hyperkalemia; L03.115 Cellulitis of right lower limb; D68.9 Coagulation defect, unspecified; I44.1 Atrioventricular block, second degree; J44.9 Chronic obstructive pulmonary disease, unspecified; E11.65 Type 2 diabetes mellitus with hyperglycemia; I48.91 Unspecified atrial fibrillation; E11.22 Type 2 diabetes mellitus with diabetic chronic kidney disease; E11.21 Type 2 diabetes mellitus with diabetic nephropathy; R42 Dizziness and giddiness; R00.1 Bradycardia, unspecified; K74.60 Unspecified cirrhosis of liver; Z95.1 Presence of aortocoronary bypass graft; I25.2 Old myocardial infarction; Z87.09 Personal history of other diseases of the respiratory system; Z79.4 Long term (current) use of insulin; Z79.01 Long term (current) use of anticoagulants; Z79.02 Long term (current) use of antithrombotics/antiplatelets; Z79.82 Long term (current) use of aspirin; Z91.14 Patient's other noncompliance with medication regimen; Z91.19 Patient's noncompliance with other medical treatment and regimen; Z59.0 Homelessness

== ENCOUNTER 2018-06-20 14:34 | Inpatient (IN) | payer OTHER ==
[2018-06-20 14:35] VITALS: BMI 25.4
--- NOTE | 2018-06-20 14:46 | C.PDOC ---
History Of Present Illness 67 y/o male with a PMHx of CAD, MD, CABG, Diabetes, CHF, noncompliant w/ meds over 5 weeks, presents today complaining of chest pain and palpitations since last night. Notes the pain is throbbing to left chest, non-radiating. Patient also reports bilateral lower leg edema. Otherwise he denies any SOB, abdominal pain, headache, back pain, fever, chills, or night sweats. Patient is a poor historian. Time Seen by Provider: 06/20/18 14:45 Chief Complaint (Nursing): Chest Pain History Per: Patient History/Exam Limitations: no limitations Onset/Duration Of Symptoms: Days (x 2) Current Symptoms Are (Timing): Still Present Past Medical History Reviewed: Historical Data, Nursing Documentation, Vital Signs - Medical History PMH: CAD, CHF, Diabetes Denies: Chronic Kidney Disease Surgical History: CABG - [facility] (01/05/18) ASSISTANCE WITH RESPIRATORY VENTILATION, <24 HRS, CPAP (01/05/18) FLUOROSCOPY OF L INT MAMM GRAFT USING L OSM CONTRAST (01/05/18) FLUOROSCOPY OF LEFT HEART USING LOW OSMOLAR CONTRAST (01/05/18) FLUOROSCOPY OF MULT COR ART USING L OSM CONTRAST (01/05/18) FLUOROSCOPY OF SING COR A GRAFT USING L OSM CONTRAST (01/05/18) INSERT INFUSION DEV IN R INT JUGULAR VEIN, PERC (01/05/18) INSERT OF MONITOR DEV INTO CHEST SUBCU/FASCIA, PERC APPROACH (01/05/18) INSERTION OF INFUSION DEV INTO R FEMOR VEIN, PERC APPROACH (01/05/18) MEASURE OF CARDIAC SAMPL & PRESSURE, L HEART, PERC APPROACH (01/05/18) Family History: States: Unknown Family Hx - Social History Hx Alcohol Use: No Hx Substance Use: No - Immunization History Hx Tetanus Toxoid Vaccination: No Hx Influenza Vaccination: No Hx Pneumococcal Vaccination: No Review Of Systems Constitutional: Negative for: Fever, Chills, Sweats Eyes: Negative for: Vision Change Cardiovascular: Positive for: Chest Pain, Palpitations Respiratory: Negative for: Shortness of Breath, SOB with Excertion Gastrointestinal: Negative for: Nausea, Vomiting, Abdominal Pain Musculoskeletal: Positive for: Other (Leg swelling). Negative for: Back Pain Skin: Negative for: Rash Neurological: Negative for: Weakness, Numbness, Headache, Dizziness Physical Exam - Physical Exam Appears: Non-toxic, No Acute Distress Skin: Warm, Dry Head: Normacephalic Eye(s): bilateral: Normal Inspection, PERRL, EOMI Oral Mucosa: Moist Neck: Trachea Midline, Supple, Other (No meningeal signs- negative kernig's and brudzinskis) Chest: Symmetrical Cardiovascular: Rhythm Regular, No Friction Rub, Other (Tachycardic) Respiratory: No Rales, No Rhonchi, No Wheezing Gastrointestinal/Abdominal: Soft, No Tenderness, No Distention Extremity: Swelling (B/L 1+ pitting edema) Extremity: Bilateral: Normal Color And Temperature Pulses: Left Dorsalis Pedis: Normal, Right Dorsalis Pedis: Normal Neurological/Psych: Oriented x3 ED Course And Treatment - Laboratory Results Result Diagrams: 06/20/18 15:30 06/20/18 15:30 ECG: Interpreted By Me ECG Rhythm: Atrial Flutter Interpretation Of EC:1 conduction Rate From EC O2 Sat by Pulse Oximetry: 93 (on RA) Pulse Ox Interpretation: Abnormal Medical Decision Making Medical Decision Makin67 y/o male with a PMHx of CAD, MD, CABG, Diabetes, CHF, noncompliant w/ meds over 5 weeks, presents today complaining of chest pain and palpitations since last night. Patient also reports bilateral lower leg edema. Otherwise he denies any SOB, abdominal pain, headache, back pain, fever, chills, or night sweats. Impression: Chest pain, Palpitations, r/o ACS Plan: Labs, EKG, CXR ordered and reviewed. EKG shows A Flutter with 2:[address] Llanes, cardiology, recommends 0.5 digoxin given stable pressures and clinical picture. Plan to consult ICU. 15:[address] Garrett, covering groundskeeper supervisor today. Dr. Garrett returned call, he accepts patient to ICU. [id number] Appreciate consult w/ Dr. Klein: accepted to his service pt in NAD, stable pressures H&H unremarkable Disposition - Disposition Disposition: HOSPITALIZED Disposition Time: 16:06 Condition: STABLE - Clinical Impression Clinical Impression: Atrial flutter - Scribe Statement The provider has reviewed the documentation as recorded by the Loanibe Loren Baldwin Provider Attestation: All medical record entries made by the Loanibantonio were at my direction and personally dictated by me. I have reviewed the chart and agree that the record accurately reflects my personal performance of the history, physical exam, medical decision making, and the department course for this patient. I have also personally directed, reviewed, and agree with the discharge instructions and disposition.
[2018-06-20] MEDS ORDERED: Digoxin 250 mcg (0.25 mg) Tab PO STA (14:57)
[2018-06-20] MEDS ORDERED: Digoxin 250 mcg (0.25 mg) Tab ONE (15:03)
[2018-06-20 15:49] LABS: BASO # 0.1 K/uL (0.0-0.2); BASO % 1.6 % (0.0-2.0); EOS # 0.1 K/uL (0.0-0.7); EOS % 1.5 % (0.0-4.0); LYMPH # 0.7 K/uL (1.0-4.3); LYMPH % 13.4 % (20.0-40.0); MEAN CORPUSCULAR HEMOGLOBIN 26.3 pg (27.0-31.0); MEAN CORPUSCULAR HGB CONC 30.9 g/dL (33.0-37.0); MEAN PLATELET VOLUME 9.4 fL (7.2-11.7); MONO # 0.4 K/uL (0.0-0.8); MONO % 7.8 % (0.0-10.0); NEUT % 75.7 % (50.0-75.0); RBC 4.52 Mil/uL (4.40-5.90); RED CELL DISTRIBUTION WIDTH 16.6 % (11.5-14.5); WHITE BLOOD COUNT 5.3 K/uL (4.8-10.8)
[2018-06-20 15:54] LABS: HEMOGLOBIN 11.9 g/dL (12.0-18.0); MEAN CELL VOLUME 85.2 fL (80.0-94.0)
[2018-06-20 16:59] LABS: ALB/GLOB RATIO 1.2 (1.0-2.1); ALBUMIN 4.1 g/dL (3.5-5.0); CALCIUM 8.9 mg/dl (8.6-10.4)
[2018-06-20 17:10] LABS: TROPONIN I 0.013 ng/mL (0.00-0.120)
--- NOTE | 2018-06-20 17:30 | RAD ---
HISTORY: cp COMPARISON: Chest x-ray performed 01/16/18 TECHNIQUE: Chest, one view. FINDINGS: Examination limited by habitus and hypoinflation. LUNGS: Bibasilar atelectasis/infiltrates and small pleural effusions. Mild pulmonary venous congestion. CARDIOVASCULAR: Interloop recording device projects over the left cardiac shadow. Median sternotomy wires with evidence of CABG. Borderline cardiomegaly. OSSEOUS STRUCTURES: Osseous demineralization. Degenerative changes of the spine and shoulders. Acromioclavicular arthropathy. VISUALIZED UPPER ABDOMEN: Unremarkable. OTHER FINDINGS: None. IMPRESSION: Bibasilar atelectasis/infiltrates and small pleural effusions. Mild pulmonary venous congestion. Borderline cardiomegaly.
[2018-06-20 17:36] LABS: INR 1.3; PROTHROMBIN TIME 14.3 SECONDS (9.7-12.2)
--- NOTE | 2018-06-20 17:59 | CP.PCM.HP ---
<Mateo Chaidez - Last Filed: 06/20/18 19:59> History of Present Illness - History of Present Illness History of Present Illness: Medicine History and Physical for Hospitalist Service, Dr. Sandy This is a 67 y o male with PMhx CAD with NSTEMI (11/25/17 at [facility]), s/p CABG at [employer] (October 2017), DM2, CHF, non-compliance with outpatient medications who presented to the ED c/o chest pain and palpitations occurring since last night. Described pain as throbbing in quality localized to L chest, non-radiating. Pt also reported b/l LE edema, L > R. Pt reports not taking home medications for at least 5 weeks, states he has not followed up with a PMD and has been unable to afford his medications due to having no insurance. Pt denies sob, abd pain, n/v/d/c, urinary complaints, fever, chills, night sweats. Admits to dyspnea on exertion when he walks several steps in his house, denies intermittent claudication in LEs b/l, but admits to pain in the bottom of his feet b/l with ambulating and edema of feet b/l, states fluid swelling improves when he elevates his legs. PMD: none PMHx: CAD with NSTEMI (11/25/17 at [facility]), s/p CABG at [employer] (October 2017), DM2, CHF PSHx: CABG Allergies: NKDA Meds: unknown Present on Admission - Present on Admission Any Indicators Present on Admission: Yes History of DVT/PE: No History of Uncontrolled Diabetes: Yes Urinary Catheter: No Decubitus Ulcer Present: No Review of Systems - Constitutional Constitutional: absent: Chills, Fever, Night Sweats - Cardiovascular Cardiovascular: Chest Pain, Dyspnea on Exertion, Edema, Leg Edema. absent: Lightheadedness, Palpitations, Syncope - Respiratory Respiratory: Dyspnea on Exertion. absent: Cough, Wheezing - Gastrointestinal Gastrointestinal: absent: Abdominal Pain, Constipation, Diarrhea, Nausea, Vomiting - Genitourinary Genitourinary: absent: Change in Urinary Stream, Difficulty Urinating, Dysuria - Neurological Neurological: absent: Dizziness, Numbness, Headaches, Tingling, Weakness Past Patient History - Tetanus Immunizations Tetanus Immunization: Unknown - Past Medical History & Family History Past Medical History?: Yes - Past Social History Smoking Status: Former Smoker - CARDIAC Hx Congestive Heart Failure: Yes - PULMONARY Hx Respiratory Disorders: No Other/Comment: pt denies - NEUROLOGICAL Hx Neurological Disorder: No - HEENT Hx HEENT Problems: No Other/Comment: wears glasses - RENAL Hx Chronic Kidney Disease: No - ENDOCRINE/METABOLIC Hx Diabetes Mellitus Type 2: Yes - HEMATOLOGICAL/ONCOLOGICAL Hx Blood Disorders: No - INTEGUMENTARY Hx Dermatological Problems: No - MUSCULOSKELETAL/RHEUMATOLOGICAL Hx Falls: No - GASTROINTESTINAL Hx Gastrointestinal Disorders: No - GENITOURINARY/GYNECOLOGICAL Hx Genitourinary Disorders: No - PSYCHIATRIC Hx Substance Use: No - SURGICAL HISTORY Hx Coronary Artery Bypass Graft: Yes - ANESTHESIA Hx Anesthesia: Yes Hx Anesthesia Reactions: No Hx Malignant Hyperthermia: No Has any member of the family had a problem w/ anesthesia?: No Meds Allergies/Adverse Reactions: Allergies Allergy/AdvReac Type Severity Reaction Status Date / Time No Known Allergies Allergy Verified 01/05/18 20:19 Physical Exam - Constitutional Appears: Non-toxic, No Acute Distress - Head Exam Head Exam: ATRAUMATIC, NORMOCEPHALIC - Eye Exam Eye Exam: EOMI, Normal appearance, PERRL - ENT Exam ENT Exam: Mucous Membranes Moist - Respiratory Exam Respiratory Exam: Clear to Auscultation Bilateral, NORMAL BREATHING PATTERN. absent: Rales, Rhonchi, Wheezes - Cardiovascular Exam Cardiovascular Exam: Irregular Rhythm, +S1, +S2. absent: Gallop, Rubs, Systolic Murmur - GI/Abdominal Exam GI & Abdominal Exam: Normal Bowel Sounds, Soft. absent: Distended, Guarding, Organomegaly, Tenderness - Extremities Exam Extremities exam: Positive for: full ROM, normal capillary refill, pedal edema, pedal pulses present - Neurological Exam Neurological exam: Alert, CN II-XII Intact, Oriented x3 - Skin Skin Exam: Dry, Intact, Warm Results - Vital Signs Recent Vital Signs: Last Vital Signs Temp 97.8 F 06/20/18 17:36 Pulse 128 H 06/20/18 17:30 Resp 15 06/20/18 17:30 BP 117/81 06/20/18 17:26 Pulse Ox 98 06/20/18 17:36 - Labs Result Diagrams: 06/20/18 15:30 06/20/18 15:30 Labs: Laboratory Results - last 24 hr 06/20/18 06/20/18 06/20/18 15:30 15:30 17:21 WBC 5.3 RBC 4.52 Hgb 11.9 L D Hct 38.5 MCV 85.2 D MCH 26.3 L MCHC 30.9 L RDW 16.6 H Plt Count 184 MPV 9.4 Neut % (Auto) 75.7 H Lymph % (Auto) 13.4 L [place] % (Auto) 7.8 Eos % (Auto) 1.5 Baso % (Auto) 1.6 Neut # (Auto) 4.0 Lymph # (Auto) 0.7 L [place] # (Auto) 0.4 Eos # (Auto) 0.1 Baso # (Auto) 0.1 PT 14.3 H INR 1.3 APTT 34 Sodium 139 Potassium 4.1 Chloride 97 L Carbon Dioxide 33 H Anion Gap 13 BUN 29 H Creatinine 1.6 H Est GFR ( Amer) 53 Est GFR (Non-Af Amer) 43 Random Glucose 152 H D Calcium 8.9 Magnesium 1.5 L Total Bilirubin 1.3 AST 25 ALT 11 L D Alkaline Phosphatase 216 H D Troponin I 0.0130 NT-Pro-B Natriuret Pep 3080 H Total Protein 7.6 Albumin 4.1 Globulin 3.5 Albumin/Globulin Ratio 1.2 Assessment & Plan - Assessment and Plan (Free Text) Assessment: This is a 67 y o male with PMhx CAD with NSTEMI (11/25/17 at [facility]), s/p CABG at [employer] (October 2017), DM2, CHF, non-compliance with outpatient medications who presented to the ED c/o chest pain and palpitations occurring since last night. Admitted to ICU for A-flutter with rapid HR, and [id number] systolic CHF. Plan: Plan: Neuro: -AAOx3, no gross deficits on exam -Cont to monitor Cardio: -[id number] CHF Lasix 40 mg daily Started on Coreg, titrate prn based on BP and HR BNP elevated on admission -Aflutter with rapid HR S/p digoxin in ED x1 Eliquis started Dr. Llanes (Cardiology) consulted, recs appreciated Echo pending ASA daily C/w Crestor A1c, lipid panel pending Trop 0.01 on admission, repeat ROMIs pending -LE swelling: Venous doppler LE b/l ordered to r/o DVT Pulm: -CXR on admission demonstrates bibasilar atelectasis/infiltrates and small pleural effusions, mild pulm venous congestion -Saturating well on NC, cont to monitor GI: -HHD -Protonix -No acute issues as this time Renal: -ARF on CKD Nephro (Dr. Powers) consulted, recs appreciated BUN/Cr on admission 29/1.6, cont to trend Kasandra IVF hydration -Flomax and Finasteride for BPH continued from home meds on prior admission Psych: -Hx depression C/w home med from prior admission Mirtazapine Heme: -H/H 11.9/38.5, stable, cont to monitor -No leukocytosis, afebrile Endo: -Hx DM2 uncontrolled ISS Fingersticks achs Hypoglycemic protocol Will cont to monitor A1c pending Pt seen, examined with, and plan discussed with Dr. Sandy, attending domenico de leon. Mateo Chaidez DO PGY-1, Cdl A Driver Pager #[phone] <Quinten Sandy - Last Filed: 06/21/18 13:18> Results - Vital Signs Recent Vital Signs: Last Vital Signs Temp 97.8 F 06/21/18 08:00 Pulse 126 H 06/21/18 12:55 Resp 18 06/21/18 12:55 BP 100/59 L 06/21/18 12:56 Pulse Ox 92 L 06/21/18 12:55 - Labs Result Diagrams: 06/21/18 06:19 06/21/18 06:19 Labs: Laboratory Results - last 24 hr 06/20/18 06/20/18 06/20/18 15:30 15:30 17:21 WBC 5.3 RBC 4.52 Hgb 11.9 L D Hct 38.5 MCV 85.2 D MCH 26.3 L MCHC 30.9 L RDW 16.6 H Plt Count 184 MPV 9.4 Neut % (Auto) 75.7 H Lymph % (Auto) 13.4 L [place] % (Auto) 7.8 Eos % (Auto) 1.5 Baso % (Auto) 1.6 Neut # (Auto) 4.0 Lymph # (Auto) 0.7 L [place] # (Auto) 0.4 Eos # (Auto) 0.1 Baso # (Auto) 0.1 PT 14.3 H INR 1.3 APTT 34 Sodium 139 Potassium 4.1 Chloride 97 L Carbon Dioxide 33 H Anion Gap 13 BUN 29 H Creatinine 1.6 H Est GFR ( Amer) 53 Est GFR (Non-Af Amer) 43 Random Glucose 152 H D Calcium 8.9 Phosphorus Magnesium 1.5 L Total Bilirubin 1.3 AST 25 ALT 11 L D Alkaline Phosphatase 216 H D Total Creatine Kinase CK-MB (Mass) Troponin I 0.0130 NT-Pro-B Natriuret Pep 3080 H Total Protein 7.6 Albumin 4.1 Globulin 3.5 Albumin/Globulin Ratio 1.2 Triglycerides Cholesterol LDL Cholesterol Direct HDL Cholesterol Urine Color Urine Clarity Urine pH Ur Specific [place] Urine Protein Urine Glucose (UA) Urine Ketones Urine Blood Urine Nitrate Urine Bilirubin Urine Urobilinogen Ur Leukocyte Esterase Urine WBC (Auto) Hyaline Casts 06/21/18 06/21/18 06/21/18 00:57 04:33 06:19 WBC 4.6 L RBC 3.97 L Hgb 10.5 L Hct 33.6 L MCV 84.7 MCH 26.5 L MCHC 31.3 L RDW 16.4 H Plt Count 153 MPV 9.9 Neut % (Auto) 66.6 Lymph % (Auto) 19.1 L [place] % (Auto) 11.1 H Eos % (Auto) 2.4 Baso % (Auto) 0.8 Neut # (Auto) 3.1 Lymph # (Auto) 0.9 L [place] # (Auto) 0.5 Eos # (Auto) 0.1 Baso # (Auto) 0.0 PT INR APTT Sodium Potassium Chloride Carbon Dioxide Anion Gap BUN Creatinine Est GFR ( Amer) Est GFR (Non-Af Amer) Random Glucose Calcium Phosphorus Magnesium Total Bilirubin AST ALT Alkaline Phosphatase Total Creatine Kinase 45 L CK-MB (Mass) 0.58 Troponin I < 0.0120 NT-Pro-B Natriuret Pep Total Protein Albumin Globulin Albumin/Globulin Ratio Triglycerides Cholesterol LDL Cholesterol Direct HDL Cholesterol Urine Color Yellow Urine Clarity Clear Urine pH 5.0 Ur Specific [place] 1.008 Urine Protein Negative Urine Glucose (UA) Normal Urine Ketones Negative Urine Blood Negative Urine Nitrate Negative Urine Bilirubin Negative Urine Urobilinogen Normal Ur Leukocyte Esterase Neg Urine WBC (Auto) 1 Hyaline Casts 0-2 06/21/18 06/21/18 06:19 06:19 WBC RBC Hgb Hct MCV MCH MCHC RDW Plt Count MPV Neut % (Auto) Lymph % (Auto) [place] % (Auto) Eos % (Auto) Baso % (Auto) Neut # (Auto) Lymph # (Auto) [place] # (Auto) Eos # (Auto) Baso # (Auto) PT INR APTT Sodium 137 Potassium 3.6 Chloride 99 Carbon Dioxide 33 H Anion Gap 9 L BUN 26 H Creatinine 1.4 Est GFR ( Amer) > 60 Est GFR (Non-Af Amer) 51 Random Glucose 98 D Calcium 8.3 L Phosphorus 3.5 Magnesium 1.5 L Total Bilirubin 0.9 AST 24 ALT 16 L D Alkaline Phosphatase 195 H Total Creatine Kinase 39 L CK-MB (Mass) 0.53 Troponin I 0.0150 NT-Pro-B Natriuret Pep Total Protein 6.5 Albumin 3.5 Globulin 3.0 Albumin/Globulin Ratio 1.2 Triglycerides 60 Cholesterol 107 LDL Cholesterol Direct 70 HDL Cholesterol 31 Urine Color Urine Clarity Urine pH Ur Specific [place] Urine Protein Urine Glucose (UA) Urine Ketones Urine Blood Urine Nitrate Urine Bilirubin Urine Urobilinogen Ur Leukocyte Esterase Urine WBC (Auto) Hyaline Casts Attending/Attestation - Attestation I have personally seen and examined this patient.: Yes I have fully participated in the care of the patient.: Yes I have reviewed all pertinent clinical information: Yes Notes (Text): NOW admitted due to a flutter with rapid HR, and acute on chronic systolic chf with worsening lower ext edema monitor in icu stop lovenox start elequis acute renal failure on ckd consult nephro and cards Dr. Llanes
--- NOTE | 2018-06-20 17:59 | CP.PCM.CON ---
<Mateo hCaidez - Last Filed: 06/20/18 19:44> History of Present Illness - History of Present Illness History of Present Illness: ICU Consult Note for Dr. Garrett This is a 67 y o male with PMhx CAD with NSTEMI (11/25/17 at [facility]), s/p CABG at [facility] (October 2017), DM2, CHF, non-compliance with outpatient medications who presented to the ED c/o chest pain and palpitations occurring since last night. Described pain as throbbing in quality localized to L chest, non-radiating. Pt also reported b/l LE edema, L > R. Pt reports not taking home medications for at least 5 weeks, states he has not followed up with a PMD and has been unable to afford his medications due to having no insurance. Pt denies sob, abd pain, n/v/d/c, urinary complaints, fever, chills, night sweats. Admits to dyspnea on exertion when he walks several steps in his house, denies intermittent claudication in LEs b/l, but admits to pain in the bottom of his feet b/l with ambulating and edema of feet b/l, states fluid swelling improves when he elevates his legs. PMD: none PMHx: CAD with NSTEMI (11/25/17 at [facility]), s/p CABG at [facility] (October 2017), DM2, CHF PSHx: CABG Allergies: NKDA Meds: unknown Review of Systems - Constitutional Constitutional: Fatigue, Malaise. absent: Chills, Fever - Cardiovascular Cardiovascular: Chest Pain, Dyspnea on Exertion, Leg Edema, Pedal Edema. absent: Palpitations, Syncope - Respiratory Respiratory: Dyspnea, Dyspnea on Exertion. absent: Cough, Wheezing - Gastrointestinal Gastrointestinal: absent: Abdominal Pain, Constipation, Diarrhea, Nausea, Vomiting - Genitourinary Genitourinary: absent: Change in Urinary Stream, Difficulty Urinating, Dysuria - Neurological Neurological: absent: Dizziness, Numbness, Headaches, Syncope, Tingling Past Patient History - Tetanus Immunizations Tetanus Immunization: Unknown - Past Medical History & Family History Past Medical History?: Yes - Past Social History Smoking Status: Former Smoker - CARDIAC Hx Congestive Heart Failure: Yes - PULMONARY Hx Respiratory Disorders: No Other/Comment: pt denies - NEUROLOGICAL Hx Neurological Disorder: No - HEENT Hx HEENT Problems: No Other/Comment: wears glasses - RENAL Hx Chronic Kidney Disease: No - ENDOCRINE/METABOLIC Hx Diabetes Mellitus Type 2: Yes - HEMATOLOGICAL/ONCOLOGICAL Hx Blood Disorders: No - INTEGUMENTARY Hx Dermatological Problems: No - MUSCULOSKELETAL/RHEUMATOLOGICAL Hx Falls: No - GASTROINTESTINAL Hx Gastrointestinal Disorders: No - GENITOURINARY/GYNECOLOGICAL Hx Genitourinary Disorders: No - PSYCHIATRIC Hx Substance Use: No - SURGICAL HISTORY Hx Coronary Artery Bypass Graft: Yes - ANESTHESIA Hx Anesthesia: Yes Hx Anesthesia Reactions: No Hx Malignant Hyperthermia: No Has any member of the family had a problem w/ anesthesia?: No Meds Allergies/Adverse Reactions: Allergies Allergy/AdvReac Type Severity Reaction Status Date / Time No Known Allergies Allergy Verified 01/05/18 20:19 - Medications Medications: Current Medications Influenza Virus Vaccine (Flucelvax Quad [id number] Syr) 60 mcg IM .ONCE ONE Stop: 06/22/18 10:01 Pneumococcal Polyvalent Vaccine (Pneumovax 23 Vaccine) 0.5 ml IM .ONCE ONE Stop: 06/22/18 10:01 Physical Exam - Constitutional Appears: Non-toxic, No Acute Distress - Head Exam Head Exam: ATRAUMATIC, NORMOCEPHALIC - Eye Exam Eye Exam: EOMI, Normal appearance, PERRL - ENT Exam ENT Exam: Mucous Membranes Moist - Cardiovascular Exam Cardiovascular Exam: Irregular Rhythm, +S1, +S2. absent: Gallop, Rubs, Systolic Murmur - GI/Abdominal Exam GI & Abdominal Exam: Normal Bowel Sounds, Soft. absent: Distended, Organomegaly, Tenderness - Extremities Exam Extremities exam: Positive for: full ROM, normal capillary refill, pedal edema, pedal pulses present - Neurological Exam Neurological exam: Alert, CN II-XII Intact, Oriented x3 Results - Vital Signs Recent Vital Signs: Last Vital Signs Temp 97.8 F 06/20/18 17:36 Pulse 128 H 06/20/18 17:30 Resp 15 06/20/18 17:30 BP 117/81 06/20/18 17:26 Pulse Ox 98 06/20/18 17:36 - Labs Result Diagrams: 06/20/18 15:30 06/20/18 15:30 Labs: Laboratory Results - last 24 hr 06/20/18 06/20/18 06/20/18 15:30 15:30 17:21 WBC 5.3 RBC 4.52 Hgb 11.9 L D Hct 38.5 MCV 85.2 D MCH 26.3 L MCHC 30.9 L RDW 16.6 H Plt Count 184 MPV 9.4 Neut % (Auto) 75.7 H Lymph % (Auto) 13.4 L [place] % (Auto) 7.8 Eos % (Auto) 1.5 Baso % (Auto) 1.6 Neut # (Auto) 4.0 Lymph # (Auto) 0.7 L [place] # (Auto) 0.4 Eos # (Auto) 0.1 Baso # (Auto) 0.1 PT 14.3 H INR 1.3 APTT 34 Sodium 139 Potassium 4.1 Chloride 97 L Carbon Dioxide 33 H Anion Gap 13 BUN 29 H Creatinine 1.6 H Est GFR ( Amer) 53 Est GFR (Non-Af Amer) 43 Random Glucose 152 H D Calcium 8.9 Magnesium 1.5 L Total Bilirubin 1.3 AST 25 ALT 11 L D Alkaline Phosphatase 216 H D Troponin I 0.0130 NT-Pro-B Natriuret Pep 3080 H Total Protein 7.6 Albumin 4.1 Globulin 3.5 Albumin/Globulin Ratio 1.2 Assessment & Plan - Assessment and Plan (Free Text) Assessment: This is a 67 y o male with PMhx CAD with NSTEMI (11/25/17 at [facility]), s/p CABG at [facility] (October 2017), DM2, CHF, non-compliance with outpatient medications who presented to the ED c/o chest pain and palpitations occurring since last night. Admitted to ICU for A-flutter with rapid HR, and [id number] racheal systolic CHF. Plan: Neuro: -AAOx3, no gross deficits on exam -Cont to monitor Cardio: -[id number] CHF Lasix 40 mg daily Started on Coreg, titrate prn based on BP and HR BNP elevated on admission -Aflutter with rapid HR S/p digoxin in ED x1 Eliquis started Dr. Llanes (Cardiology) consulted, recs appreciated Echo pending ASA daily C/w Crestor A1c, lipid panel pending Trop 0.01 on admission, repeat ROMIs pending -LE swelling: Venous doppler LE b/l ordered to r/o DVT Pulm: -CXR on admission demonstrates bibasilar atelectasis/infiltrates and small p leural effusions, mild pulm venous congestion -Saturating well on NC, cont to monitor GI: -HHD -Protonix -No acute issues as this time Renal: -ARF on CKD Nephro (Dr. Powers) consulted, recs appreciated BUN/Cr on admission 29/1.6, cont to trend Kasandra IVF hydration -Flomax and Finasteride for BPH continued from home meds on prior admission Psych: -Hx depression C/w home med from prior admission Mirtazapine Heme: -H/H 11.9/38.5, stable, cont to monitor -No leukocytosis, afebrile Endo: -Hx DM2 uncontrolled ISS Fingersticks achs Hypoglycemic protocol Will cont to monitor A1c pending Pt seen, examined with, and plan discussed with Dr. Garrett, attending physician. Mateo Chaidez DO PGY-1, Addressograph Operator Pager #[phone] <Rolf Garrett - Last Filed: 06/26/18 23:05> Meds - Medications Medications: Current Medications Apixaban (Eliquis) 5 mg PO DAILY [facility] Last Admin: 06/26/18 09:53 Dose: 5 mg Aspirin (Aspirin Chewable) 81 mg PO DAILY [facility] Last Admin: 06/26/18 09:52 Dose: 81 mg Carvedilol (Coreg) 6.25 mg PO BID [facility] Last Admin: 06/26/18 18:01 Dose: 6.25 mg Carvedilol (Coreg) 3.125 mg PO BID [facility] Last Admin: 06/26/18 18:01 Dose: 3.125 mg Dextrose (Dextrose 50% Inj) 0 ml IV STAT PRN; Protocol PRN Reason: Hypoglycemia Protocol Dextrose (Glutose 15) 0 gm PO ONCE PRN; Protocol PRN Reason: Hypoglycemia Protocol Digoxin (Lanoxin) 0.25 mg PO DAILY@1800 [facility] Last Admin: 06/26/18 18:02 Dose: 0.25 mg Ferric Sodium Gluconate Complex (Ferrlecit) 125 mg IVPB DAILY [facility] Stop: 06/29/18 10:01 Last Admin: 06/26/18 09:55 Dose: 125 mg Finasteride (Proscar) 5 mg PO DAILY [facility] Last Admin: 06/26/18 09:52 Dose: 5 mg Furosemide (Lasix) 20 mg IVP BID [facility] Last Admin: 06/26/18 18:02 Dose: Not Given Glucagon (Glucagen Diagnostic Kit) 0 mg IM STAT PRN; Protocol PRN Reason: Hypoglycemia Protocol Insulin Human Regular (Novolin R) 0 unit SC ACHS [facility]; Protocol Last Admin: 06/26/18 21:25 Dose: Not Given Mirtazapine (Remeron) 7.5 mg PO DAILY [facility] Last Admin: 06/26/18 10:05 Dose: 7.5 mg Pantoprazole Sodium (Protonix Ec Tab) 40 mg PO DAILY [facility] Last Admin: 06/26/18 09:54 Dose: 40 mg Rosuvastatin Calcium (Crestor) 40 mg PO HS [facility] Last Admin: 06/25/18 21:44 Dose: 40 mg Spironolactone (Aldactone) 25 mg PO BID [facility] Last Admin: 06/26/18 18:01 Dose: 25 mg Tamsulosin HCl (Flomax) 0.4 mg PO DAILY [facility] Last Admin: 06/26/18 09:54 Dose: 0.4 mg Results - Vital Signs Recent Vital Signs: Last Vital Signs Temp 98.6 F 06/26/18 16:00 Pulse 90 06/26/18 16:30 Resp 20 06/26/18 16:00 BP 99/58 L 06/26/18 18:02 Pulse Ox 94 L 06/26/18 07:10 - Labs Result Diagrams: 06/25/18 07:26 06/25/18 07:26 Labs: Laboratory Results - last 24 hr 06/25/18 06/26/18 06/26/18 21:10 06:23 11:43 POC Glucose (mg/dL) 200 H 121 H 264 H Fluid Source Fluid Appearance Fluid WBC Fluid RBC Fluid Tot Cell Count Fluid Neutrophils Fluid Lymphocytes Fld Monocyte/Macrophag Fluid Comment 06/26/18 06/26/18 14:11 16:27 POC Glucose (mg/dL) 179 H Fluid Source Pleural/thoracentesi Fluid Appearance Sl cloudy Fluid WBC 301.0 H Fluid RBC 1797.0 H Fluid Tot Cell Count 100 H Fluid Neutrophils 6.0 H Fluid Lymphocytes 92.0 H Fld Monocyte/Macrophag 2 H Fluid Comment Attending/Attestation - Attestation I have personally seen and examined this patient.: Yes I have fully participated in the care of the patient.: Yes I have reviewed all pertinent clinical information: Yes Notes (Text): 06/20/18 Today: Wednesday, June 20, 2018 The Patient was seen and examined at the bedside, Medical records reviewed, and management issues were discussed and formulated with the house staff. I have reviewed all the relevant clinical, laboratory, hemodynamic, radiographic data and medications Events reviewed Pain issues, skin care, head of the bed elevation, glycemic control were addressed. Agree with above resident's assessment and treatment plans of care as transcribed in Dr. Chaidez's note.
--- NOTE | 2018-06-20 18:26 | CP.PCM.PCO ---
Attending/Attestation - Attestation I have personally seen and examined this patient.: Yes I have fully participated in the care of the patient.: Yes I have reviewed all pertinent clinical information: Yes Notes (Text): 67 YO male homeless pmh of cad cabg dm 2 non complaince, chf systolic recent admission with arf, right leg wound infection with proteus, kleb pneumo, strep pneumo and e faecalis, ckd NOW admitted due to a flutter with rapid HR, and acute on chronic systolic chf with worsening lower ext edema monitor in icu stop lovenox start elequis acute renal failure on ckd consult nephro and cards Dr. Llanes Was admitted recently in January 2018 Pt was found to have pulmonary edema/tizij-lw-vdhhutm systolic CHF exacerbation, and acute renal failure on work-up on ICU. Pt received hemodialysis sessions x4 while inpatient. Had repeat cardiac cath on 01/15/18 which demonstrated severe [place] triple vessel disease, patent grafts, ischemic cardiomyopathy, and EF of 34%. Pt had loop recorder placement by [facility] on 01/16/18 which pt tolerated well without complications. Echo demonstrated EF of 34% and impaired systolic function. Pt also had elevated lactate and procalcitonin, and presumed wound infection from R leg s/p vein harvest for CABG. Pt was given vanco in ED, and given Cipro for treatment of infection while inpatient. Wound cx 01/06/18 grew Proteus Mirabilis, Klebsiella pneumoniae, Strep pneumo, and Enterococcus faecalis. Pt was discharged to home on 01/22/18 with instructions to follow with [facility] ([facility] P[facility]), Dr. Powers, and [facility] within 1-2 weeks of discharge. PMD: [facility] [place] [facility], Dr. Powers PMHx: CAD s/p CABG, DM2, ckd, right leg wound infection, non complaince, chf systolic PSHx: CABG, loop recorder Allergies: NKDA
[2018-06-20] MEDS ORDERED: Sodium Chloride 0.9% 1,000 ML IV SCH (18:30)
[2018-06-20] MEDS ORDERED: Glucagon Recombinant 1 mg Inj IM PRN (19:14)
[2018-06-20] MEDS ORDERED: Dextrose 50% SYRINGE Inj (50 ml) IV PRN (19:14)
[2018-06-20] MEDS ORDERED: Magnesium Oxide 400 mg Tab UD PO ONE (19:15)
[2018-06-20] MEDS: (Novolin R) Insulin Human Regular 100 units/ml vial SC SCH (21:58)
[2018-06-20] MEDS ORDERED: Enoxaparin 80 mg Syringe SC SCH (22:00)
[2018-06-21 01:57] LABS: CK-MB 0.58 ng/mL (0.0-3.38)
[2018-06-21 04:46] LABS: URINE BILIRUBIN NEGATIVE (NEGATIVE); URINE BLOOD NEGATIVE (NEGATIVE); URINE CLARITY Clear (Clear); URINE COLOR Yellow (YELLOW); URINE GLUCOSE (UA) NORMAL (Normal); URINE HYALINE CAST 0-2 /lpf (0-2); URINE LEUKOCYTE ESTERASE NEG Leu/uL (Negative); URINE PROTEIN NEGATIVE (NEGATIVE); URINE UROBILINOGEN NORMAL mg/dL (0.2-1.0)
[2018-06-21 06:27] LABS: BASO % 0.8 % (0.0-2.0); EOS # 0.1 K/uL (0.0-0.7); EOS % 2.4 % (0.0-4.0); HEMOGLOBIN 10.5 g/dL (12.0-18.0); LYMPH # 0.9 K/uL (1.0-4.3); LYMPH % 19.1 % (20.0-40.0); MEAN CELL VOLUME 84.7 fL (80.0-94.0); MEAN CORPUSCULAR HEMOGLOBIN 26.5 pg (27.0-31.0); MEAN CORPUSCULAR HGB CONC 31.3 g/dL (33.0-37.0); MEAN PLATELET VOLUME 9.9 fL (7.2-11.7); MONO # 0.5 K/uL (0.0-0.8); MONO % 11.1 % (0.0-10.0); NEUT # 3.1 K/uL (1.8-7.0); NEUT % 66.6 % (50.0-75.0); NRBC % 0.1 % (0.0-2.0); RBC 3.97 Mil/uL (4.40-5.90); RED CELL DISTRIBUTION WIDTH 16.4 % (11.5-14.5); WHITE BLOOD COUNT 4.6 K/uL (4.8-10.8)
[2018-06-21 06:54] LABS: LDL CHOLESTEROL 70 mg/dL (0-129)
[2018-06-21 06:55] LABS: ALB/GLOB RATIO 1.2 (1.0-2.1); ALBUMIN 3.5 g/dL (3.5-5.0); ALT/SGPT 16 U/L (21-72); AST/SGOT 24 U/L (17-59); BLOOD UREA NITROGEN 26 mg/dL (9-20); CALCIUM 8.3 mg/dl (8.6-10.4); GFR NON-AFRICAN AMERICAN 51; HDL CHOLESTEROL 31 mg/dL (30-70)
[2018-06-21 06:57] LABS: CK-MB 0.53 ng/mL (0.0-3.38); TROPONIN I 0.015 ng/mL (0.00-0.120)
[2018-06-21] MEDS: (Novolin R) Insulin Human Regular 100 units/ml vial SC SCH ×4 (08:00→22:11)
[2018-06-21] MEDS: Pantoprazole 40 mg EC Tab PO SCH (09:38)
--- NOTE | 2018-06-21 09:39 | CP.CCUPN ---
CCU Subjective - Physician Review Subjective (Free Text): ICU Progress Note for Dr. Serna Pt seen and examined at bedside this am. States he is feeling better compared to yesterday on admission. No acute events reported overnight by staff. States his b/l LE swelling has improved. Denies headache, dizziness, chest pain, fever, chills, sob, n/v/d/c, abd pain, urinary complaints, or other symptoms. CCU Objective - Vital Signs / Intake & Output Vital Signs (Last 4 hours): Vital Signs Temp Pulse Resp BP Pulse Ox 06/21/18 09:36 95/62 L 06/21/18 08:00 97.8 F 96 06/21/18 07:56 112 H 20 102/48 L 94 L 06/21/18 06:56 113 H 19 118/58 L 93 L 06/21/18 06:00 122 H 13 94 L 06/21/18 05:56 91/49 L Intake and Output (Last 8hrs): Intake & Output 06/20/18 06/21/18 06/21/18 22:59 06:59 14:59 Intake Total 440 160 150 Output Total 300 1500 Balance 140 -1340 150 Weight 176 lb 175 lb Intake: Intake, IV Amount 240 60 Left Antecubital 240 60 Oral 200 100 150 Output: Urine 300 1500 Urine, Voided 300 1500 Emesis 0 Other: # Bowel Movements 0 - Physical Exam Head: Positive for: Atraumatic, Normocephalic Pupils: Positive for: PERRL Extroacular Muscles: Positive for: EOMI Conjunctiva: Positive for: Normal Mouth: Positive for: Moist Mucous Membranes Neck: Positive for: Normal Range of Motion. Negative for: JVD, Lymphadenopathy Respiratory/Chest: Positive for: Clear to Auscultation, Good Air Exchange. Negative for: Respiratory Distress, Accessory Muscle Use, Wheezes, Rales, Rhonchi Cardiovascular: Positive for: Regular Rate and Rhythm, Normal S1, S2. Negative for: Murmurs, Rub, Gallop Abdomen: Positive for: Normal Bowel Sounds. Negative for: Tenderness, Dis tention, Mass/Organomegaly Upper Extremity: Positive for: Normal Inspection, Normal ROM, NORMAL PULSES, Neurovascularly Intact, Capillary Refill < 2s. Negative for: Cyanosis, Edema Lower Extremity: Positive for: Normal Inspection, Edema (1+ edema b/l), NORMAL PULSES, Normal ROM, Neurovascularly Intact, Capillary Refill < 2 s Neurological: Positive for: GCS=15, CN II-XII Intact, Speech Normal Skin: Positive for: Warm, Dry, Normal Color Psychiatric: Positive for: Alert, Oriented x 3 - Medications Active Medications: Active Medications Generic Name Dose Route Start Last Admin Trade Name Freq PRN Reason Stop Dose Admin Apixaban 5 mg 06/21/18 10:00 Eliquis PO DAILY RIKI Aspirin 81 mg 06/21/18 10:00 06/21/18 09:37 Aspirin Chewable PO 81 mg DAILY RIKI Administration Carvedilol 3.125 mg 06/20/18 18:45 06/21/18 09:37 Coreg PO 3.125 mg BID RIKI Administration Dextrose 0 ml 06/20/18 19:14 Dextrose 50% Inj IV STAT PRN Hypoglycemia Protocol Protocol Dextrose 0 gm 06/20/18 19:14 Glutose 15 PO ONCE PRN Hypoglycemia Protocol Protocol Finasteride 5 mg 06/21/18 10:00 06/21/18 09:36 Proscar PO 5 mg DAILY RIKI Administration Furosemide 40 mg 06/21/18 10:00 06/21/18 09:36 Lasix PO 40 mg DAILY RIKI Administration Glucagon 0 mg 06/20/18 19:14 Glucagen Diagnostic Kit IM STAT PRN Hypoglycemia Protocol Protocol Dextrose 1,000 mls @ 0 mls/hr 06/20/18 19:14 Dextrose 5% In Water 1000 Ml IV .Q0M PRN Hypoglycemia Protocol Protocol Per Protocol Influenza Virus Vaccine 60 mcg 06/22/18 10:00 Flucelvax Quad [id number] Syr IM 06/22/18 10:01 .ONCE ONE Insulin Human Regular 0 unit 06/20/18 22:00 06/21/18 08:00 Novolin R SC Not Given ACHS RIKI Protocol Mirtazapine 7.5 mg 06/21/18 10:00 06/21/18 09:36 Remeron PO 7.5 mg DAILY RIKI Administration Pantoprazole Sodium 40 mg 06/21/18 10:00 06/21/18 09:38 Protonix Ec Tab PO 40 mg DAILY RIKI Administration Pneumococcal Polyvalent Vaccine 0.5 ml 06/22/18 10:00 Pneumovax 23 Vaccine IM 06/22/18 10:01 .ONCE ONE Rosuvastatin Calcium 40 mg 06/20/18 22:00 06/20/18 21:49 Crestor PO 40 mg HS RIKI Administration Tamsulosin HCl 0.4 mg 06/21/18 10:00 06/21/18 09:38 Flomax PO 0.4 mg DAILY RIKI Administration - Patient Studies Lab Studies: Lab Studies 06/21/18 06/21/18 06/21/18 Range/Units 06:19 06:19 06:19 WBC 4.6 L (4.8-10.8) K/uL RBC 3.97 L (4.40-5.90) Mil/uL Hgb 10.5 L (12.0-18.0) g/dL Hct 33.6 L (35.0-51.0) % MCV 84.7 (80.0-94.0) fL MCH 26.5 L (27.0-31.0) pg MCHC 31.3 L (33.0-37.0) g/dL RDW 16.4 H (11.5-14.5) % Plt Count 153 (130-400) K/uL MPV 9.9 (7.2-11.7) fL Neut % (Auto) 66.6 (50.0-75.0) % Lymph % (Auto) 19.1 L (20.0-40.0) % Wake % (Auto) 11.1 H (0.0-10.0) % Eos % (Auto) 2.4 (0.0-4.0) % Baso % (Auto) 0.8 (0.0-2.0) % Neut # (Auto) 3.1 (1.8-7.0) K/uL Lymph # (Auto) 0.9 L (1.0-4.3) K/uL Wake # (Auto) 0.5 (0.0-0.8) K/uL Eos # (Auto) 0.1 (0.0-0.7) K/uL Baso # (Auto) 0.0 (0.0-0.2) K/uL PT (9.7-12.2) SECONDS INR APTT (21-34) SECONDS Sodium 137 (132-148) mmol/L Potassium 3.6 (3.6-5.2) mmol/L Chloride 99 (98-107) mmol/L Carbon Dioxide 33 H (22-30) mmol/L Anion Gap 9 L (10-20) BUN 26 H (9-20) mg/dL Creatinine 1.4 (0.8-1.5) mg/dL Est GFR ( Amer) > 60 Est GFR (Non-Af Amer) 51 Random Glucose 98 D (75-110) mg/dL Calcium 8.3 L (8.6-10.4) mg/dl Phosphorus 3.5 (2.5-4.5) mg/dL Magnesium 1.5 L (1.6-2.3) mg/dL Total Bilirubin 0.9 (0.2-1.3) mg/dL AST 24 (17-59) U/L ALT 16 L D (21-72) U/L Alkaline Phosphatase 195 H (38-126) U/L Total Creatine Kinase 39 L (55-170) U/L CK-MB (Mass) 0.53 (0.0-3.38) ng/mL Troponin I 0.0150 (0.00-0.120) ng/mL NT-Pro-B Natriuret Pep (0-900) pg/mL Total Protein 6.5 (6.3-8.3) g/dL Albumin 3.5 (3.5-5.0) g/dL Globulin 3.0 (2.2-3.9) gm/dL Albumin/Globulin Ratio 1.2 (1.0-2.1) Triglycerides 60 (0-149) mg/dL Cholesterol 107 (0-199) mg/dL LDL Cholesterol Direct 70 (0-129) mg/dL HDL Cholesterol 31 (30-70) mg/dL Urine Color (YELLOW) Urine Clarity (Clear) Urine pH (5.0-8.0) Ur Specific Garrison (1.003-1.030) Urine Protein (NEGATIVE) mg/dL Urine Glucose (UA) (Normal) mg/dL Urine Ketones (NEGATIVE) mg/dL Urine Blood (NEGATIVE) Urine Nitrate (NEGATIVE) Urine Bilirubin (NEGATIVE) Urine Urobilinogen (0.2-1.0) mg/dL Ur Leukocyte Esterase (Negative) Julia/uL Urine WBC (Auto) (0-5) /hpf Hyaline Casts (0-2) /lpf 06/21/18 06/21/18 06/20/18 Range/Units 04:33 00:57 17:21 WBC (4.8-10.8) K/uL RBC (4.40-5.90) Mil/uL Hgb (12.0-18.0) g/dL Hct (35.0-51.0) % MCV (80.0-94.0) fL MCH (27.0-31.0) pg MCHC (33.0-37.0) g/dL RDW (11.5-14.5) % Plt Count (130-400) K/uL MPV (7.2-11.7) fL Neut % (Auto) (50.0-75.0) % Lymph % (Auto) (20.0-40.0) % Wake % (Auto) (0.0-10.0) % Eos % (Auto) (0.0-4.0) % Baso % (Auto) (0.0-2.0) % Neut # (Auto) (1.8-7.0) K/uL Lymph # (Auto) (1.0-4.3) K/uL Wake # (Auto) (0.0-0.8) K/uL Eos # (Auto) (0.0-0.7) K/uL Baso # (Auto) (0.0-0.2) K/uL PT 14.3 H (9.7-12.2) SECONDS INR 1.3 APTT 34 (21-34) SECONDS Sodium (132-148) mmol/L Potassium (3.6-5.2) mmol/L Chloride (98-107) mmol/L Carbon Dioxide (22-30) mmol/L Anion Gap (10-20) BUN (9-20) mg/dL Creatinine (0.8-1.5) mg/dL Est GFR ( Amer) Est GFR (Non-Af Amer) Random Glucose (75-110) mg/dL Calcium (8.6-10.4) mg/dl Phosphorus (2.5-4.5) mg/dL Magnesium (1.6-2.3) mg/dL Total Bilirubin (0.2-1.3) mg/dL AST (17-59) U/L ALT (21-72) U/L Alkaline Phosphatase (38-126) U/L Total Creatine Kinase 45 L (55-170) U/L CK-MB (Mass) 0.58 (0.0-3.38) ng/mL Troponin I < 0.0120 (0.00-0.120) ng/mL NT-Pro-B Natriuret Pep (0-900) pg/mL Total Protein (6.3-8.3) g/dL Albumin (3.5-5.0) g/dL Globulin (2.2-3.9) gm/dL Albumin/Globulin Ratio (1.0-2.1) Triglycerides (0-149) mg/dL Cholesterol (0-199) mg/dL LDL Cholesterol Direct (0-129) mg/dL HDL Cholesterol (30-70) mg/dL Urine Color Yellow (YELLOW) Urine Clarity Clear (Clear) Urine pH 5.0 (5.0-8.0) Ur Specific Garrison 1.008 (1.003-1.030) Urine Protein Negative (NEGATIVE) mg/dL Urine Glucose (UA) Normal (Normal) mg/dL Urine Ketones Negative (NEGATIVE) mg/dL Urine Blood Negative (NEGATIVE) Urine Nitrate Negative (NEGATIVE) Urine Bilirubin Negative (NEGATIVE) Urine Urobilinogen Normal (0.2-1.0) mg/dL Ur Leukocyte Esterase Neg (Negative) Julia/uL Urine WBC (Auto) 1 (0-5) /hpf Hyaline Casts 0-2 (0-2) /lpf 06/20/18 06/20/18 Range/Units 15:30 15:30 WBC 5.3 (4.8-10.8) K/uL RBC 4.52 (4.40-5.90) Mil/uL Hgb 11.9 L D (12.0-18.0) g/dL Hct 38.5 (35.0-51.0) % MCV 85.2 D (80.0-94.0) fL MCH 26.3 L (27.0-31.0) pg MCHC 30.9 L (33.0-37.0) g/dL RDW 16.6 H (11.5-14.5) % Plt Count 184 (130-400) K/uL MPV 9.4 (7.2-11.7) fL Neut % (Auto) 75.7 H (50.0-75.0) % Lymph % (Auto) 13.4 L (20.0-40.0) % Wake % (Auto) 7.8 (0.0-10.0) % Eos % (Auto) 1.5 (0.0-4.0) % Baso % (Auto) 1.6 (0.0-2.0) % Neut # (Auto) 4.0 (1.8-7.0) K/uL Lymph # (Auto) 0.7 L (1.0-4.3) K/uL Wake # (Auto) 0.4 (0.0-0.8) K/uL Eos # (Auto) 0.1 (0.0-0.7) K/uL Baso # (Auto) 0.1 (0.0-0.2) K/uL PT (9.7-12.2) SECONDS INR APTT (21-34) SECONDS Sodium 139 (132-148) mmol/L Potassium 4.1 (3.6-5.2) mmol/L Chloride 97 L (98-107) mmol/L Carbon Dioxide 33 H (22-30) mmol/L Anion Gap 13 (10-20) BUN 29 H (9-20) mg/dL Creatinine 1.6 H (0.8-1.5) mg/dL Est GFR ( Amer) 53 Est GFR (Non-Af Amer) 43 Random Glucose 152 H D (75-110) mg/dL Calcium 8.9 (8.6-10.4) mg/dl Phosphorus (2.5-4.5) mg/dL Magnesium 1.5 L (1.6-2.3) mg/dL Total Bilirubin 1.3 (0.2-1.3) mg/dL AST 25 (17-59) U/L ALT 11 L D (21-72) U/L Alkaline Phosphatase 216 H D (38-126) U/L Total Creatine Kinase (55-170) U/L CK-MB (Mass) (0.0-3.38) ng/mL Troponin I 0.0130 (0.00-0.120) ng/mL NT-Pro-B Natriuret Pep 3080 H (0-900) pg/mL Total Protein 7.6 (6.3-8.3) g/dL Albumin 4.1 (3.5-5.0) g/dL Globulin 3.5 (2.2-3.9) gm/dL Albumin/Globulin Ratio 1.2 (1.0-2.1) Triglycerides (0-149) mg/dL Cholesterol (0-199) mg/dL LDL Cholesterol Direct (0-129) mg/dL HDL Cholesterol (30-70) mg/dL Urine Color (YELLOW) Urine Clarity (Clear) Urine pH (5.0-8.0) Ur Specific Garrison (1.003-1.030) Urine Protein (NEGATIVE) mg/dL Urine Glucose (UA) (Normal) mg/dL Urine Ketones (NEGATIVE) mg/dL Urine Blood (NEGATIVE) Urine Nitrate (NEGATIVE) Urine Bilirubin (NEGATIVE) Urine Urobilinogen (0.2-1.0) mg/dL Ur Leukocyte Esterase (Negative) Julia/uL Urine WBC (Auto) (0-5) /hpf Hyaline Casts (0-2) /lpf Laboratory Results - last 24 hr 06/20/18 06/20/18 06/20/18 15:30 15:30 17:21 WBC 5.3 RBC 4.52 Hgb 11.9 L D Hct 38.5 MCV 85.2 D MCH 26.3 L MCHC 30.9 L RDW 16.6 H Plt Count 184 MPV 9.4 Neut % (Auto) 75.7 H Lymph % (Auto) 13.4 L Wake % (Auto) 7.8 Eos % (Auto) 1.5 Baso % (Auto) 1.6 Neut # (Auto) 4.0 Lymph # (Auto) 0.7 L Wake # (Auto) 0.4 Eos # (Auto) 0.1 Baso # (Auto) 0.1 PT 14.3 H INR 1.3 APTT 34 Sodium 139 Potassium 4.1 Chloride 97 L Carbon Dioxide 33 H Anion Gap 13 BUN 29 H Creatinine 1.6 H Est GFR ( Amer) 53 Est GFR (Non-Af Amer) 43 Random Glucose 152 H D Calcium 8.9 Phosphorus Magnesium 1.5 L Total Bilirubin 1.3 AST 25 ALT 11 L D Alkaline Phosphatase 216 H D Total Creatine Kinase CK-MB (Mass) Troponin I 0.0130 NT-Pro-B Natriuret Pep 3080 H Total Protein 7.6 Albumin 4.1 Globulin 3.5 Albumin/Globulin Ratio 1.2 Triglycerides Cholesterol LDL Cholesterol Direct HDL Cholesterol Urine Color Urine Clarity Urine pH Ur Specific Garrison Urine Protein Urine Glucose (UA) Urine Ketones Urine Blood Urine Nitrate Urine Bilirubin Urine Urobilinogen Ur Leukocyte Esterase Urine WBC (Auto) Hyaline Casts 06/21/18 06/21/18 06/21/18 00:57 04:33 06:19 WBC 4.6 L RBC 3.97 L Hgb 10.5 L Hct 33.6 L MCV 84.7 MCH 26.5 L MCHC 31.3 L RDW 16.4 H Plt Count 153 MPV 9.9 Neut % (Auto) 66.6 Lymph % (Auto) 19.1 L Wake % (Auto) 11.1 H Eos % (Auto) 2.4 Baso % (Auto) 0.8 Neut # (Auto) 3.1 Lymph # (Auto) 0.9 L Wake # (Auto) 0.5 Eos # (Auto) 0.1 Baso # (Auto) 0.0 PT INR APTT Sodium Potassium Chloride Carbon Dioxide Anion Gap BUN Creatinine Est GFR ( Amer) Est GFR (Non-Af Amer) Random Glucose Calcium Phosphorus Magnesium Total Bilirubin AST ALT Alkaline Phosphatase Total Creatine Kinase 45 L CK-MB (Mass) 0.58 Troponin I < 0.0120 NT-Pro-B Natriuret Pep Total Protein Albumin Globulin Albumin/Globulin Ratio Triglycerides Cholesterol LDL Cholesterol Direct HDL Cholesterol Urine Color Yellow Urine Clarity Clear Urine pH 5.0 Ur Specific Garrison 1.008 Urine Protein Negative Urine Glucose (UA) Normal Urine Ketones Negative Urine Blood Negative Urine Nitrate Negative Urine Bilirubin Negative Urine Urobilinogen Normal Ur Leukocyte Esterase Neg Urine WBC (Auto) 1 Hyaline Casts 0-2 06/21/18 06/21/18 06:19 06:19 WBC RBC Hgb Hct MCV MCH MCHC RDW Plt Count MPV Neut % (Auto) Lymph % (Auto) Wake % (Auto) Eos % (Auto) Baso % (Auto) Neut # (Auto) Lymph # (Auto) Wake # (Auto) Eos # (Auto) Baso # (Auto) PT INR APTT Sodium 137 Potassium 3.6 Chloride 99 Carbon Dioxide 33 H Anion Gap 9 L BUN 26 H Creatinine 1.4 Est GFR ( Amer) > 60 Est GFR (Non-Af Amer) 51 Random Glucose 98 D Calcium 8.3 L Phosphorus 3.5 Magnesium 1.5 L Total Bilirubin 0.9 AST 24 ALT 16 L D Alkaline Phosphatase 195 H Total Creatine Kinase 39 L CK-MB (Mass) 0.53 Troponin I 0.0150 NT-Pro-B Natriuret Pep Total Protein 6.5 Albumin 3.5 Globulin 3.0 Albumin/Globulin Ratio 1.2 Triglycerides 60 Cholesterol 107 LDL Cholesterol Direct 70 HDL Cholesterol 31 Urine Color Urine Clarity Urine pH Ur Specific Garrison Urine Protein Urine Glucose (UA) Urine Ketones Urine Blood Urine Nitrate Urine Bilirubin Urine Urobilinogen Ur Leukocyte Esterase Urine WBC (Auto) Hyaline Casts Radiology Impressions: Radiology Impressions Chest X-Ray 06/20/18 14:59 IMPRESSION: Bibasilar atelectasis/infiltrates and small pleural effusions. Mild pulmonary venous congestion. Borderline cardiomegaly. EKG/Cardiology Studies: Cardiology / EKG Studies 06/20/18 14:35 ELECTROCARDIOGRAM Stat Comment: Mode Of Transportation: Reason For Exam: cp 06/20/18 14:58 ELECTROCARDIOGRAM Stat Comment: Mode Of Transportation: Reason For Exam: Fingerstick Blood Sugar Results: 101 Review of Systems - Constitutional Constitutional: absent: Fever, Chills, Sweats, Weakness - EENT Eyes: absent: Change in Vision - Cardiovascular Cardiovascular: Leg Edema. absent: Chest Pain, Dyspnea on Exertion, Pain Radiating to Arm/Neck/Jaw, Orthopnea, Palpitations, Syncope - Respiratory Respiratory: absent: Cough, Dyspnea, Wheezing - Gastrointestinal Gastrointestinal: absent: Abdominal Pain, Constipation, Diarrhea, Nausea, Vomiting Critical Care Progress Note - Nutrition Nutrition: Nutrition Category Date Time Status Heart Healthy Diet [DIET] Diets 06/20/18 Dinner Active Assessment/Plan - Assessment and Plan (Free Text) Assessment: 67 y o male with PMhx CAD with NSTEMI (11/25/17 at [facility]), s/p CABG at [place] (October 2017), DM2, CHF, non-compliance with outpatient medications who presented to the ED c/o chest pain and palpitations occurring since last night. Admitted to ICU for A-flutter with rapid HR, and [id number] systolic CHF. Plan: Neuro: -AAOx3, no gross deficits on exam -Cont to monitor Cardio: -[id number] CHF Lasix 40 mg daily Started on Coreg, titrate prn based on BP and HR BNP elevated on admission -Aflutter with rapid HR S/p digoxin in ED x1 Eliquis started Dr. Llanes (Cardiology) consulted, recs appreciated Echo pending ASA daily C/w Crestor A1c pending, lipid panel wnl Trop 0.01 => 0.01 => 0.01 -LE swelling: Venous doppler LE b/l ordered to r/o DVT Pulm: -CXR on admission demonstrates bibasilar atelectasis/infiltrates and small pleural effusions, mild pulm venous congestion -Saturating well on NC, cont to monitor GI: -HHD -Protonix -No acute issues as this time Renal: -ARF on CKD Nephro (Dr. Powers) consulted, recs appreciated BUN/Cr on admission 29/1.6, today 26/1.4, cont to trend IVF d/c'd -Flomax and Finasteride for BPH continued from home meds on prior admission Psych: -Hx depression C/w home med from prior admission Mirtazapine Heme: -H/H 10.5/33.6, stable, cont to monitor -No leukocytosis, afebrile Endo: -Hx DM2 uncontrolled ISS Fingersticks achs Hypoglycemic protocol Will cont to monitor A1c pending Dispo: Stable for downgrade from ICU to telemetry floor. Pt seen, examined with, and plan discussed with Dr. Serna, attending physician. Mateo Chaidez DO PGY-1, Ultrasound Specialist Pager #[phone]
--- NOTE | 2018-06-21 10:32 | CARD ---
APPROVED REPORT Date of service: 06/20/2018 EKG Measurement Heart [id number] <Conclusion> Narrow complex tachycardia, consider A Flutter Left axis deviation Inferior infarct, age undetermined Abnormal ECG
--- NOTE | 2018-06-21 10:40 | CP.PCM.CON ---
<Mercy Zuniga - Last Filed: 06/21/18 13:46> History of Present Illness - History of Present Illness History of Present Illness: Consult note for Dr. Powers Patient is a 67 year old male with a history of CAD, CABG, NSTEMI, DM, CHF, BPH, and noncompliance with medications, who presents to the hospital with bilateral LE edema, chest pain, and palpitations. The patient was admitted to the ICU yesterday for atrial flutter. The patient has had chest pain and palpitations for two days prior to admission. He took two aspirins per day for 2 days, which did not relieve his symptoms. It was noted on labs that patient's BUN/Cr were elevated, for which nephrology was consulted. Of note, during an admission in 01/2018, patient was in acute renal failure which required two sessions of dialysis. The patient's kidney function improved and he has not had dialysis since. He does not have doctors that he regularly follows and has not taken his medications for "over 5 weeks" (since his medication ran out from his prior admission, he has not refilled them as he does not have money to pay for them). The patient currently complains of bilateral leg swelling and pain and also states he has increased frequency today. He currently denies chest pain, palpitations, dyspnea, nausea, vomiting, abdominal pain, difficulty or pain w/urinating, hematuria, blood in stool, constipation, diarrhea, fevers, dizziness, back pain. PMHx: CAD, CABG, NSTEMI, DM, CHF, BPH and noncompliance with medications SurgHx: CABG 10/2017 SocHx: former smoker (quit 20 years ago, smoked [id number]); denies alcohol a nd drug use; unemployed. Allergies: NKDA Medications: none at this time; does not know the names of the medications hes been prescribed in the past. Review of Systems - Constitutional Constitutional: absent: Fever, Headache, Weakness - EENT Eyes: absent: Change in Vision Ears: absent: Dizziness - Cardiovascular Cardiovascular: Dyspnea on Exertion. absent: Chest Pain, Dyspnea, Lightheadedness, Palpitations - Respiratory Respiratory: Dyspnea on Exertion. absent: Cough, Dyspnea - Gastrointestinal Gastrointestinal: absent: Abdominal Pain, Constipation, Diarrhea, Nausea, Vomiting - Genitourinary Genitourinary: Urinary Frequency. absent: Change in Urinary Stream, Difficulty Urinating, Dysuria, Hematuria, Pyuria, Urinary Incontinence - Musculoskeletal Musculoskeletal: absent: Back Pain - Neurological Neurological: absent: Dizziness, Headaches - Endocrine Endocrine: absent: Fatigue, Palpitations Past Patient History - Tetanus Immunizations Tetanus Immunization: Unknown - Past Medical History & Family History Past Medical History?: Yes - Past Social History Smoking Status: Former Smoker - CARDIAC Hx Congestive Heart Failure: Yes - PULMONARY Hx Respiratory Disorders: No Other/Comment: pt denies - NEUROLOGICAL Hx Neurological Disorder: No - HEENT Hx HEENT Problems: No Other/Comment: wears glasses - RENAL Hx Chronic Kidney Disease: No - ENDOCRINE/METABOLIC Hx Diabetes Mellitus Type 2: Yes - HEMATOLOGICAL/ONCOLOGICAL Hx Blood Disorders: No - INTEGUMENTARY Hx Dermatological Problems: No - MUSCULOSKELETAL/RHEUMATOLOGICAL Hx Falls: No - GASTROINTESTINAL Hx Gastrointestinal Disorders: No - GENITOURINARY/GYNECOLOGICAL Hx Genitourinary Disorders: No - PSYCHIATRIC Hx Substance Use: No - SURGICAL HISTORY Hx Coronary Artery Bypass Graft: Yes - ANESTHESIA Hx Anesthesia: Yes Hx Anesthesia Reactions: No Hx Malignant Hyperthermia: No Has any member of the family had a problem w/ anesthesia?: No Meds Allergies/Adverse Reactions: Allergies Allergy/AdvReac Type Severity Reaction Status Date / Time No Known Allergies Allergy Verified 01/05/18 20:19 - Medications Medications: Current Medications Apixaban (Eliquis) 5 mg PO DAILY [facility] Last Admin: 06/21/18 09:42 Dose: 5 mg Aspirin (Aspirin Chewable) 81 mg PO DAILY [facility] Last Admin: 06/21/18 09:37 Dose: 81 mg Carvedilol (Coreg) 3.125 mg PO BID [facility] Last Admin: 06/21/18 09:37 Dose: 3.125 mg Dextrose (Dextrose 50% Inj) 0 ml IV STAT PRN; Protocol PRN Reason: Hypoglycemia Protocol Dextrose (Glutose 15) 0 gm PO ONCE PRN; Protocol PRN Reason: Hypoglycemia Protocol Finasteride (Proscar) 5 mg PO DAILY [facility] Last Admin: 06/21/18 09:36 Dose: 5 mg Furosemide (Lasix) 40 mg PO DAILY [facility] Last Admin: 06/21/18 09:36 Dose: 40 mg Glucagon (Glucagen Diagnostic Kit) 0 mg IM STAT PRN; Protocol PRN Reason: Hypoglycemia Protocol Dextrose (Dextrose 5% In Water 1000 Ml) 1,000 mls @ 0 mls/hr IV .Q0M PRN; Protocol PRN Reason: Hypoglycemia Protocol Influenza Virus Vaccine (Flucelvax Quad [id number] Syr) 60 mcg IM .ONCE ONE Stop: 06/22/18 10:01 Insulin Human Regular (Novolin R) 0 unit SC ACHS [facility]; Protocol Last Admin: 06/21/18 08:00 Dose: Not Given Mirtazapine (Remeron) 7.5 mg PO DAILY [facility] Last Admin: 06/21/18 09:36 Dose: 7.5 mg Pantoprazole Sodium (Protonix Ec Tab) 40 mg PO DAILY [facility] Last Admin: 06/21/18 09:38 Dose: 40 mg Pneumococcal Polyvalent Vaccine (Pneumovax 23 Vaccine) 0.5 ml IM .ONCE ONE Stop: 06/22/18 10:01 Rosuvastatin Calcium (Crestor) 40 mg PO HS [facility] Last Admin: 06/20/18 21:49 Dose: 40 mg Tamsulosin HCl (Flomax) 0.4 mg PO DAILY [facility] Last Admin: 06/21/18 09:38 Dose: 0.4 mg Physical Exam - Constitutional Appears: No Acute Distress - Head Exam Head Exam: ATRAUMATIC, NORMAL INSPECTION - Eye Exam Eye Exam: EOMI, Normal appearance - ENT Exam ENT Exam: Mucous Membranes Moist - Respiratory Exam Respiratory Exam: Decreased Breath Sounds (b/l), NORMAL BREATHING PATTERN. absent: Rales, Rhonchi, Wheezes - Cardiovascular Exam Cardiovascular Exam: Tachycardia, Irregular Rhythm, +S1, +S2 - GI/Abdominal Exam GI & Abdominal Exam: Distended (slight), Normal Bowel Sounds, Soft. absent: Firm, Guarding, Tenderness - Exam Exam: Scrotal Swelling - Extremities Exam Extremities exam: Positive for: pedal edema (above the knee), tenderness, pedal pulses present (diminished due to edema). Negative for: calf tenderness - Neurological Exam Neurological exam: Alert, Oriented x3 - Psychiatric Exam Psychiatric exam: Normal Affect, Normal Mood - Skin Skin Exam: Dry, Normal Color, Warm Results - Vital Signs Recent Vital Signs: Last Vital Signs Temp 97.8 F 06/21/18 08:00 Pulse 125 H 06/21/18 10:00 Resp 11 L 06/21/18 09:26 BP 95/62 L 06/21/18 09:36 Pulse Ox 93 L 06/21/18 09:26 - Labs Result Diagrams: 06/21/18 06:19 06/21/18 06:19 Labs: Laboratory Results - last 24 hr 06/20/18 06/20/18 06/20/18 15:30 15:30 17:21 WBC 5.3 RBC 4.52 Hgb 11.9 L D Hct 38.5 MCV 85.2 D MCH 26.3 L MCHC 30.9 L RDW 16.6 H Plt Count 184 MPV 9.4 Neut % (Auto) 75.7 H Lymph % (Auto) 13.4 L [place] % (Auto) 7.8 Eos % (Auto) 1.5 Baso % (Auto) 1.6 Neut # (Auto) 4.0 Lymph # (Auto) 0.7 L [place] # (Auto) 0.4 Eos # (Auto) 0.1 Baso # (Auto) 0.1 PT 14.3 H INR 1.3 APTT 34 Sodium 139 Potassium 4.1 Chloride 97 L Carbon Dioxide 33 H Anion Gap 13 BUN 29 H Creatinine 1.6 H Est GFR ( Amer) 53 Est GFR (Non-Af Amer) 43 Random Glucose 152 H D Calcium 8.9 Phosphorus Magnesium 1.5 L Total Bilirubin 1.3 AST 25 ALT 11 L D Alkaline Phosphatase 216 H D Total Creatine Kinase CK-MB (Mass) Troponin I 0.0130 NT-Pro-B Natriuret Pep 3080 H Total Protein 7.6 Albumin 4.1 Globulin 3.5 Albumin/Globulin Ratio 1.2 Triglycerides Cholesterol LDL Cholesterol Direct HDL Cholesterol Urine Color Urine Clarity Urine pH Ur Specific [place] Urine Protein Urine Glucose (UA) Urine Ketones Urine Blood Urine Nitrate Urine Bilirubin Urine Urobilinogen Ur Leukocyte Esterase Urine WBC (Auto) Hyaline Casts 06/21/18 06/21/18 06/21/18 00:57 04:33 06:19 WBC 4.6 L RBC 3.97 L Hgb 10.5 L Hct 33.6 L MCV 84.7 MCH 26.5 L MCHC 31.3 L RDW 16.4 H Plt Count 153 MPV 9.9 Neut % (Auto) 66.6 Lymph % (Auto) 19.1 L [place] % (Auto) 11.1 H Eos % (Auto) 2.4 Baso % (Auto) 0.8 Neut # (Auto) 3.1 Lymph # (Auto) 0.9 L [place] # (Auto) 0.5 Eos # (Auto) 0.1 Baso # (Auto) 0.0 PT INR APTT Sodium Potassium Chloride Carbon Dioxide Anion Gap BUN Creatinine Est GFR ( Amer) Est GFR (Non-Af Amer) Random Glucose Calcium Phosphorus Magnesium Total Bilirubin AST ALT Alkaline Phosphatase Total Creatine Kinase 45 L CK-MB (Mass) 0.58 Troponin I < 0.0120 NT-Pro-B Natriuret Pep Total Protein Albumin Globulin Albumin/Globulin Ratio Triglycerides Cholesterol LDL Cholesterol Direct HDL Cholesterol Urine Color Yellow Urine Clarity Clear Urine pH 5.0 Ur Specific [place] 1.008 Urine Protein Negative Urine Glucose (UA) Normal Urine Ketones Negative Urine Blood Negative Urine Nitrate Negative Urine Bilirubin Negative Urine Urobilinogen Normal Ur Leukocyte Esterase Neg Urine WBC (Auto) 1 Hyaline Casts 0-2 06/21/18 06/21/18 06:19 06:19 WBC RBC Hgb Hct MCV MCH MCHC RDW Plt Count MPV Neut % (Auto) Lymph % (Auto) [place] % (Auto) Eos % (Auto) Baso % (Auto) Neut # (Auto) Lymph # (Auto) [place] # (Auto) Eos # (Auto) Baso # (Auto) PT INR APTT Sodium 137 Potassium 3.6 Chloride 99 Carbon Dioxide 33 H Anion Gap 9 L BUN 26 H Creatinine 1.4 Est GFR ( Amer) > 60 Est GFR (Non-Af Amer) 51 Random Glucose 98 D Calcium 8.3 L Phosphorus 3.5 Magnesium 1.5 L Total Bilirubin 0.9 AST 24 ALT 16 L D Alkaline Phosphatase 195 H Total Creatine Kinase 39 L CK-MB (Mass) 0.53 Troponin I 0.0150 NT-Pro-B Natriuret Pep Total Protein 6.5 Albumin 3.5 Globulin 3.0 Albumin/Globulin Ratio 1.2 Triglycerides 60 Cholesterol 107 LDL Cholesterol Direct 70 HDL Cholesterol 31 Urine Color Urine Clarity Urine pH Ur Specific [place] Urine Protein Urine Glucose (UA) Urine Ketones Urine Blood Urine Nitrate Urine Bilirubin Urine Urobilinogen Ur Leukocyte Esterase Urine WBC (Auto) Hyaline Casts Assessment & Plan - Assessment and Plan (Free Text) Plan: 67 year old male with a history of CAD, CABG, NSTEMI, DM, CHF, BPH and noncompli ance with medications, presents to the hospital with bilateral LE edema, chest pain, and palpitations. Bowling Alley Operator consulted for TRAVIS on CKD. TRAVIS on CKD - At admission, BUN/Cr 29/1.6; BUN/ Cr has improved to 26/1.4. - Continue IV Fluids - UA: negative for protein, blood - Random Microalbumin: f/u - Total protein, Urine Cr: f/u CHF exacerbation - BNP 2080 at admission, B/L LE edema - CXR: bibasilar atelectsis/infiltrates and small pleural effusions; mild pulmonary venous congestion; borderline cardiomegaly. - Home medications were continued: Lasix 40mg PO daily, Crestor 40mg PO HS, Aspirin 81mg PO daily - Was started on Coreg 3.125mg PO BID - Would consider IVAN/ARB once kidney function improves - Echo from 12/2017: EF 34.9%, normal LV and LV wall thickness; systolic function is moderately-severely impaired; flattened septum; mild MR and TR - Echo ordered: f/u - Venous dopplers ordered: negative (prelim report) - Repeat CXR (06/21/18): f/u AFlutter - On telemetry - Capacitor Tester: Dr. Llanes - Was given Digoxin in the ED - Started on Eliquis 5mg PO daily, Coreg 3.125mg PO BID Anemia - Iron, TIBC, %sat, ferritin, retic count: f/u - Continue to monitor History of Cirrhosis - Abd US (12/2017): cirrhotic appearing liver; incompletely visualized low volume ascites; right pleural effusion - Patient is slightly distended; will order repeat abdominal US- f/u BPH - Continue home medications: Finasteride 5mg PO daily, Flomax 0.4mg PO daily Case discussed with Dr. Priya Lemus, PGY2 <Maynor Powers - Last Filed: 06/22/18 10:15> Meds - Medications Medications: Current Medications Apixaban (Eliquis) 5 mg PO DAILY [facility] Last Admin: 06/21/18 09:42 Dose: 5 mg Aspirin (Aspirin Chewable) 81 mg PO DAILY [facility] Last Admin: 06/21/18 09:37 Dose: 81 mg Carvedilol (Coreg) 6.25 mg PO BID [facility] Last Admin: 06/21/18 17:05 Dose: 6.25 mg Dextrose (Dextrose 50% Inj) 0 ml IV STAT PRN; Protocol PRN Reason: Hypoglycemia Protocol Dextrose (Glutose 15) 0 gm PO ONCE PRN; Protocol PRN Reason: Hypoglycemia Protocol Digoxin (Lanoxin) 0.25 mg PO Q2D [facility] Last Admin: 06/21/18 13:37 Dose: 0.25 mg Finasteride (Proscar) 5 mg PO DAILY [facility] Last Admin: 06/21/18 09:36 Dose: 5 mg Furosemide (Lasix) 40 mg PO DAILY [facility] Last Admin: 06/21/18 09:36 Dose: 40 mg Glucagon (Glucagen Diagnostic Kit) 0 mg IM STAT PRN; Protocol PRN Reason: Hypoglycemia Protocol Dextrose (Dextrose 5% In Water 1000 Ml) 1,000 mls @ 0 mls/hr IV .Q0M PRN; Protocol PRN Reason: Hypoglycemia Protocol Insulin Human Regular (Novolin R) 0 unit SC ACHS [facility]; Protocol Last Admin: 06/21/18 22:11 Dose: Not Given Mirtazapine (Remeron) 7.5 mg PO DAILY [facility] Last Admin: 06/21/18 09:36 Dose: 7.5 mg Pantoprazole Sodium (Protonix Ec Tab) 40 mg PO DAILY [facility] Last Admin: 06/21/18 09:38 Dose: 40 mg Rosuvastatin Calcium (Crestor) 40 mg PO HS [facility] Last Admin: 06/21/18 22:11 Dose: 40 mg Tamsulosin HCl (Flomax) 0.4 mg PO DAILY [facility] Last Admin: 06/21/18 09:38 Dose: 0.4 mg Results - Vital Signs Recent Vital Signs: Last Vital Signs Temp 98 F 06/22/18 04:00 Pulse 114 H 06/22/18 04:00 Resp 21 06/22/18 04:00 BP 114/70 06/22/18 04:00 Pulse Ox 95 06/22/18 04:00 - Labs Result Diagrams: 06/22/18 06:10 06/22/18 06:10 Labs: Laboratory Results - last 24 hr 06/20/18 06/20/18 06/21/18 08:10 08:10 14:12 WBC RBC Hgb Hct MCV MCH MCHC RDW Plt Count MPV Neut % (Auto) Lymph % (Auto) [place] % (Auto) Eos % (Auto) Baso % (Auto) Neut # (Auto) Lymph # (Auto) [place] # (Auto) Eos # (Auto) Baso # (Auto) Retic Count Puncture Site pCO2 pO2 HCO3 ABG pH ABG Total CO2 ABG O2 Saturation ABG Base Excess ABG Hemoglobin ABG Carboxyhemoglobin POC ABG HHb (Measured) ABG Methemoglobin Kade Test Hgb O2 Saturation Liter Flow Sodium Potassium Chloride Carbon Dioxide Anion Gap BUN Creatinine Est GFR ( Amer) Est GFR (Non-Af Amer) Random Glucose Calcium Phosphorus Magnesium Iron 44 L TIBC 350 % Saturation 12 L Ferritin Total Bilirubin AST ALT Alkaline Phosphatase Total Protein Albumin Globulin Albumin/Globulin Ratio U Random Total Protein 270 H Urine Creatinine 37 Urine Microalbumin 2.6 Microalb/Creat Ratio 69 H 06/21/18 06/21/18 06/21/18 14:12 14:12 14:12 WBC RBC Hgb Hct MCV MCH MCHC RDW Plt Count MPV Neut % (Auto) Lymph % (Auto) [place] % (Auto) Eos % (Auto) Baso % (Auto) Neut # (Auto) Lymph # (Auto) [place] # (Auto) Eos # (Auto) Baso # (Auto) Retic Count 1.2 Puncture Site pCO2 pO2 HCO3 ABG pH ABG Total CO2 ABG O2 Saturation ABG Base Excess ABG Hemoglobin ABG Carboxyhemoglobin POC ABG HHb (Measured) ABG Methemoglobin Kade Test Hgb O2 Saturation Liter Flow Sodium Potassium Chloride Carbon Dioxide Anion Gap BUN Creatinine Est GFR ( Amer) Est GFR (Non-Af Amer) Random Glucose Calcium Phosphorus Magnesium Iron TIBC % Saturation 10 L Ferritin 27.8 Total Bilirubin AST ALT Alkaline Phosphatase Total Protein Albumin Globulin Albumin/Globulin Ratio U Random Total Protein Urine Creatinine Urine Microalbumin Microalb/Creat Ratio 06/21/18 06/22/18 06/22/18 14:25 06:10 06:10 WBC 5.0 RBC 4.05 L Hgb 10.7 L Hct 34.4 L MCV 85.0 MCH 26.4 L MCHC 31.1 L RDW 16.2 H Plt Count 152 MPV 9.9 Neut % (Auto) 67.5 Lymph % (Auto) 20.3 [place] % (Auto) 9.3 Eos % (Auto) 2.3 Baso % (Auto) 0.6 Neut # (Auto) 3.4 Lymph # (Auto) 1.0 [place] # (Auto) 0.5 Eos # (Auto) 0.1 Baso # (Auto) 0.0 Retic Count Puncture Site Lb pCO2 45 pO2 63 L HCO3 28.1 H ABG pH 7.42 ABG Total CO2 30.6 H ABG O2 Saturation 94.2 L ABG Base Excess 4.2 H ABG Hemoglobin 9.6 L ABG Carboxyhemoglobin 1.6 H POC ABG HHb (Measured) 5.7 H ABG Methemoglobin 0.8 Kade Test Na Hgb O2 Saturation 91.8 L Liter Flow 3.0 Sodium 135 Potassium 3.8 Chloride 94 L Carbon Dioxide 32 H Anion Gap 12 BUN 23 H Creatinine 1.3 Est GFR ( Amer) > 60 Est GFR (Non-Af Amer) 55 Random Glucose 217 H D Calcium 8.4 L Phosphorus 3.3 Magnesium 4.1 H Iron TIBC % Saturation Ferritin Total Bilirubin 0.8 AST 22 ALT 12 L D Alkaline Phosphatase 214 H Total Protein 6.4 Albumin 3.5 Globulin 2.9 Albumin/Globulin Ratio 1.2 U Random Total Protein Urine Creatinine Urine Microalbumin Microalb/Creat Ratio Attending/Attestation - Attestation I have personally seen and examined this patient.: Yes I have fully participated in the care of the patient.: Yes I have reviewed all pertinent clinical information: Yes Notes (Text): Patient seen and examined; I agree with the resident's note as above with the following additions/edits: 67 yo M w/ pmh of CAD s/p CABG (10/2017), DM, htn, CHF w/ systolic dysfunction, BPH, and noncompliance with medications, admitted with a-flutter w/ RVR after presenting with dyspnea, nephrology being consulted for renal insufficiency; Patient reportedly ran out of his meds 1+ months ago due to lack of money; reports increased dyspnea and leg swelling over past 1+ week; otherwise denies any change in urination; acknowledges somewhat increased abdominal girth; appetite has been well; Exam pertinent for 1-2+ b/l lower ext edema, no obvious increase in JVD (but difficult to assess given tachycardia); lungs clear, but decreased breath sounds at left base; CXR not showing increased vascular congestion, possible L pleural effusion; Likely with baseline mild CKD, mostly non-proteinuric; UA neg for albuminuria (discrepancy on previous admission with 24 hr urine protein and random sample with the former showing nephrotic range and the latter showing 0.5 g/g, repeating now); may have some degree of diabetic kidney disease with cardiorenal component given systolic dysfunction; of note, patient with dialysis dependent a cute renal failure likely due to ischemic ATN in the setting of hypotension/bradycardia on prior admission that recovered; patient therefore has increased risk for TRAVIS and should avoid hypotension; need to control RVR in this regard; -ordering ABG to assess metabolic alkalosis (mild but may represent compensation for hypercapnea); -abd US to assess for progression of liver cirrhosis/ascites; -continue CHF/afib/flutter optimization; f/u cardio recs; agree with lasix PO 40 mg daily (doesn't appear to be in florid CHF); -avoid nephrotoxic agents; Thank you for this referral, we will be following closely.
[2018-06-21] MEDS ORDERED: Digoxin 250 mcg (0.25 mg) Tab PO SCH (13:45)
[2018-06-21] MEDS ORDERED: Magnesium Sulfate 1 gm in D5W 1 GM/100 ML BAG IVPB ONE (14:15)
[2018-06-21 14:30] LABS: ARTERIAL BLOOD GAS HCO3 28.1 mmol/L (21-28); ARTERIAL BLOOD GAS HEMOGLOBIN 9.6 g/dL (11.7-17.4); ARTERIAL BLOOD GAS O2 SAT 94.2 % (95-98); ARTERIAL BLOOD GAS PCO2 45 mm/Hg (35-45); ARTERIAL BLOOD GAS PH 7.42 (7.35-7.45); ARTERIAL BLOOD GAS PO2 63 mm/Hg (80-100); ARTERIAL BLOOD GAS TCO2 30.6 mmol/L (22-28)
[2018-06-21 14:38] LABS: IRON 44 ug/dL (49-181)
[2018-06-21 14:48] LABS: % IRON SATURATION 12 (20-55); TOTAL IRON BINDING CAPACITY 350 ug/dL (250-450)
--- NOTE | 2018-06-21 15:35 | CP.PCM.PN ---
Subjective - Date & Time of Evaluation Date of Evaluation: 06/21/18 Time of Evaluation: 15:33 - Subjective Subjective: no cp feels less sob at rest less palpitatoins current HR at time of exam 11am was 130s. Objective - Vital Signs/Intake and Output Vital Signs (last 24 hours): Temp Pulse Resp BP Pulse Ox 97.8 F 126 H 18 100/59 L 92 L 06/21/18 08:00 06/21/18 12:55 06/21/18 12:55 06/21/18 12:56 06/21/18 12:55 Intake and Output: 06/21/18 06/21/18 06:59 18:59 Intake Total 600 200 Output Total 1800 Balance -1200 200 - Medications Medications: Current Medications Apixaban (Eliquis) 5 mg PO DAILY [facility] Last Admin: 06/21/18 09:42 Dose: 5 mg Aspirin (Aspirin Chewable) 81 mg PO DAILY [facility] Last Admin: 06/21/18 09:37 Dose: 81 mg Carvedilol (Coreg) 6.25 mg PO BID [facility] Dextrose (Dextrose 50% Inj) 0 ml IV STAT PRN; Protocol PRN Reason: Hypoglycemia Protocol Dextrose (Glutose 15) 0 gm PO ONCE PRN; Protocol PRN Reason: Hypoglycemia Protocol Digoxin (Lanoxin) 0.25 mg PO Q2D [facility] Last Admin: 06/21/18 13:37 Dose: 0.25 mg Finasteride (Proscar) 5 mg PO DAILY [facility] Last Admin: 06/21/18 09:36 Dose: 5 mg Furosemide (Lasix) 40 mg PO DAILY [facility] Last Admin: 06/21/18 09:36 Dose: 40 mg Glucagon (Glucagen Diagnostic Kit) 0 mg IM STAT PRN; Protocol PRN Reason: Hypoglycemia Protocol Dextrose (Dextrose 5% In Water 1000 Ml) 1,000 mls @ 0 mls/hr IV .Q0M PRN; Protocol PRN Reason: Hypoglycemia Protocol Influenza Virus Vaccine (Flucelvax Quad [id number] Syr) 60 mcg IM .ONCE ONE Stop: 06/22/18 10:01 Insulin Human Regular (Novolin R) 0 unit SC ACHS [facility]; Protocol Last Admin: 06/21/18 11:27 Dose: 6 units Mirtazapine (Remeron) 7.5 mg PO DAILY [facility] Last Admin: 06/21/18 09:36 Dose: 7.5 mg Pantoprazole Sodium (Protonix Ec Tab) 40 mg PO DAILY [facility] Last Admin: 06/21/18 09:38 Dose: 40 mg Pneumococcal Polyvalent Vaccine (Pneumovax 23 Vaccine) 0.5 ml IM .ONCE ONE Stop: 06/22/18 10:01 Rosuvastatin Calcium (Crestor) 40 mg PO HS [facility] Last Admin: 06/20/18 21:49 Dose: 40 mg Tamsulosin HCl (Flomax) 0.4 mg PO DAILY [facility] Last Admin: 06/21/18 09:38 Dose: 0.4 mg - Labs Labs: 06/21/18 06:19 06/21/18 06:19 PT 14.3 SECONDS (9.7-12.2) H 06/20/18 17:21 INR 1.3 06/20/18 17:21 APTT 34 SECONDS (21-34) 06/20/18 17:21 - Constitutional Appears: Well, Non-toxic, No Acute Distress - Head Exam Head Exam: ATRAUMATIC, NORMAL INSPECTION - Eye Exam Eye Exam: Normal appearance - ENT Exam ENT Exam: Mucous Membranes Moist - Respiratory Exam Respiratory Exam: Clear to Ausculation Bilateral, NORMAL BREATHING PATTERN. absent: Rales, Rhonchi, Wheezes - Cardiovascular Exam Cardiovascular Exam: Irregular Rhythm, +S1, +S2. absent: REGULAR RHYTHM - GI/Abdominal Exam GI & Abdominal Exam: Soft, Normal Bowel Sounds. absent: Tenderness, Organomegaly - Neurological Exam Neurological Exam: Alert, Awake, Oriented x3 - Skin Skin Exam: Normal Color Assessment and Plan - Assessment and Plan (Free Text) Assessment: 1 Acute on chronic systolic chf 2. a flutter still not controlled transfer to [facility] increased coreg cont lasix addded dig every other day cont elequis
--- NOTE | 2018-06-21 15:57 | RAD ---
Date of service: 06/21/2018 HISTORY: sob COMPARISON: 06/20/2018 FINDINGS: LUNGS: Bilateral pleural effusions. Bilateral mild compressive atelectatic changes at both bases also inferred findings are more pronounced on the left than the right. Allowing for differences in technique these findings are believed similar. Concomitant bibasilar infiltrates with atelectasis and obscured by effusions cannot be excluded. PLEURA: Bilateral small pleural effusions as above-similar in appearance. No pneumothorax seen. CARDIOVASCULAR: There is presence of aortic atherosclerotic calcification on x-ray. Cardiomegaly. Mild-moderate pulmonary venous congestion suggested.Interloop recording device projects over the left cardiac shadow. Median sternotomy wires with evidence of CABG. OSSEOUS STRUCTURES: Midline sternotomy. Thoracic spondylosis. Bilateral shoulder arthrosis. VISUALIZED UPPER ABDOMEN: Normal. OTHER FINDINGS: None. IMPRESSION: Cardiomegaly pulmonary venous congestion and bilateral pleural effusions. Findings compatible with CHF. Pulmonary venous congestion appears slightly increased since prior exam. The bilateral pleural effusions with inferred mild compressive atelectatic changes are believed similar to prior studies. Eggs as noted above.
[2018-06-22 06:21] LABS: BASO % 0.6 % (0.0-2.0); EOS # 0.1 K/uL (0.0-0.7); EOS % 2.3 % (0.0-4.0); HEMOGLOBIN 10.7 g/dL (12.0-18.0); LYMPH % 20.3 % (20.0-40.0); MEAN CORPUSCULAR HEMOGLOBIN 26.4 pg (27.0-31.0); MEAN CORPUSCULAR HGB CONC 31.1 g/dL (33.0-37.0); MEAN PLATELET VOLUME 9.9 fL (7.2-11.7); MONO # 0.5 K/uL (0.0-0.8); MONO % 9.3 % (0.0-10.0); NEUT # 3.4 K/uL (1.8-7.0); NEUT % 67.5 % (50.0-75.0); NRBC % 0.1 % (0.0-2.0); RBC 4.05 Mil/uL (4.40-5.90); RED CELL DISTRIBUTION WIDTH 16.2 % (11.5-14.5)
[2018-06-22 06:46] LABS: ALB/GLOB RATIO 1.2 (1.0-2.1); ALBUMIN 3.5 g/dL (3.5-5.0); ALT/SGPT 12 U/L (21-72); AST/SGOT 22 U/L (17-59); BLOOD UREA NITROGEN 23 mg/dL (9-20); CALCIUM 8.4 mg/dl (8.6-10.4); GFR NON-AFRICAN AMERICAN 55
--- NOTE | 2018-06-22 07:32 | CP.PCM.PN ---
<Jami Chavez - Last Filed: 06/22/18 17:47> Subjective - Date & Time of Evaluation Date of Evaluation: 06/22/18 Time of Evaluation: 07:31 - Subjective Subjective: PGY-1 Jami Chavez D.O. Medicine progress note for Dr. Sandy's service: Patient was seen and examined this morning. patient says that he is feeling much better. She denies shortness of breath and palpitations. He is complaining of some bilateral lower extremity aches. He has been getting out of bed into chair without assistance. He is eating well and moving his bowels. Objective - Vital Signs/Intake and Output Vital Signs (last 24 hours): Temp Pulse Resp BP Pulse Ox 98 F 114 H 21 114/70 95 06/22/18 04:00 06/22/18 04:00 06/22/18 04:00 06/22/18 04:00 06/22/18 04:00 Intake and Output: 06/22/18 06/22/18 06:59 18:59 Intake Total 370 Output Total 700 Balance -330 - Medications Medications: Current Medications Apixaban (Eliquis) 5 mg PO DAILY [facility] Last Admin: 06/21/18 09:42 Dose: 5 mg Aspirin (Aspirin Chewable) 81 mg PO DAILY [facility] Last Admin: 06/21/18 09:37 Dose: 81 mg Carvedilol (Coreg) 6.25 mg PO BID [facility] Last Admin: 06/21/18 17:05 Dose: 6.25 mg Dextrose (Dextrose 50% Inj) 0 ml IV STAT PRN; Protocol PRN Reason: Hypoglycemia Protocol Dextrose (Glutose 15) 0 gm PO ONCE PRN; Protocol PRN Reason: Hypoglycemia Protocol Digoxin (Lanoxin) 0.25 mg PO Q2D [facility] Last Admin: 06/21/18 13:37 Dose: 0.25 mg Finasteride (Proscar) 5 mg PO DAILY [facility] Last Admin: 06/21/18 09:36 Dose: 5 mg Furosemide (Lasix) 40 mg PO DAILY [facility] Last Admin: 06/21/18 09:36 Dose: 40 mg Glucagon (Glucagen Diagnostic Kit) 0 mg IM STAT PRN; Protocol PRN Reason: Hypoglycemia Protocol Dextrose (Dextrose 5% In Water 1000 Ml) 1,000 mls @ 0 mls/hr IV .Q0M PRN; Protocol PRN Reason: Hypoglycemia Protocol Influenza Virus Vaccine (Flucelvax Quad [id number] Syr) 60 mcg IM .ONCE ONE Stop: 06/22/18 10:01 Insulin Human Regular (Novolin R) 0 unit SC [facility]; Protocol Last Admin: 06/21/18 22:11 Dose: Not Given Mirtazapine (Remeron) 7.5 mg PO DAILY [facility] Last Admin: 06/21/18 09:36 Dose: 7.5 mg Pantoprazole Sodium (Protonix Ec Tab) 40 mg PO DAILY [facility] Last Admin: 06/21/18 09:38 Dose: 40 mg Pneumococcal Polyvalent Vaccine (Pneumovax 23 Vaccine) 0.5 ml IM .ONCE ONE Stop: 06/22/18 10:01 Rosuvastatin Calcium (Crestor) 40 mg PO HS [facility] Last Admin: 06/21/18 22:11 Dose: 40 mg Tamsulosin HCl (Flomax) 0.4 mg PO DAILY [facility] Last Admin: 06/21/18 09:38 Dose: 0.4 mg - Labs Labs: 06/22/18 06:10 06/22/18 06:10 PT 14.3 SECONDS (9.7-12.2) H 06/20/18 17:21 INR 1.3 06/20/18 17:21 APTT 34 SECONDS (21-34) 06/20/18 17:21 - Constitutional Appears: No Acute Distress, Older Than Stated Age - Head Exam Head Exam: ATRAUMATIC, NORMAL INSPECTION - Eye Exam Eye Exam: EOMI, Normal appearance - ENT Exam ENT Exam: Mucous Membranes Moist - Respiratory Exam Respiratory Exam: Decreased Breath Sounds, Rales Additional comments: Appeared SOB when speaking- could not complete full sentences without breath - Cardiovascular Exam Cardiovascular Exam: Tachycardia - GI/Abdominal Exam GI & Abdominal Exam: Soft. absent: Tenderness - Extremities Exam Extremities Exam: Normal Inspection. absent: Pedal Edema - Neurological Exam Neurological Exam: Alert, Awake, CN II-XII Intact, Oriented x3 - Psychiatric Exam Psychiatric exam: Normal Affect, Normal Mood - Skin Skin Exam: Dry, Normal Color, Warm Assessment and Plan - Assessment and Plan (Free Text) Assessment: 67 yo homeless male with PMH of CAD with NSTEMI (11/25/17 at [facility]), s/p CABG at [facility] (October 2017), DM2, CHF, non-compliance with outpatient medications who presented to the ED c/o chest pain and palpitations occurring since last night. Admitted to ICU for A-flutter with rapid HR, and [id number] systolic CHF. Patient now downgraded to telemetry. Plan: Atrial flutter - Monitor on telemetry - Increase Digoxin to 0.25 mg PO daily - Increase Coreg to 9.375 mg PO BID - Lasix 20 mg IV BID - Eliquis 5 mg PO daily - Cardiology consulted (Mario Alberto) Acute on Chronic Congestive heart failure - Echo: EF 34% - BNP 3080 - CXR on admission: bibasilar atelectasis/infiltrates and small pleural effusions, mild pulm venous congestion - CT chest: large bilateral pleural effusions - LE Doppler: no DVTs Acute on Chronic Kidney disease - BUN/Cr 29/1.6 on admission-->23/1.3 - Nephrology consulted (Priya)- urine studies pending Anemia - Hgb stable - Monitor H&H - Iron low (44), ferritin and TOBC wnl - Ferrlecit 125 mg IV daily x8 doses Coronary artery disease- s/p CABG - Trop negative x3 - Lipid panel wnl - ASA 81 mg PO daily - Crestor 40 mg PO QHS Benign prostatic hypertrophy - Proscar 5 mg PO daily - Flomax 0.4 mg PO daily Type 2 diabetes mellitus - Accuchecks ACHS - Hypoglycemia protocol - ISS - f/u A1c Cirrhosis - Abdominal US: hepatic cirrhosis, moderate ascites Depression - Remeron 7.5 mg PO QHS Ppx: VTE: Eliquis GI: Protonix 40 mg PO daily Dispo: Needs better control of heart rate and shortness of breath. Case discussed with attending, Dr. Sandy. <Quinten Sandy - Last Filed: 06/22/18 19:06> Objective - Vital Signs/Intake and Output Vital Signs (last 24 hours): Temp Pulse Resp BP Pulse Ox 97 F L 113 H 19 112/82 96 06/22/18 16:00 06/22/18 17:30 06/22/18 17:30 06/22/18 17:44 06/22/18 17:30 Intake and Output: 06/22/18 06/23/18 18:59 06:59 Intake Total 550 Output Total 751 Balance -201 - Medications Medications: Current Medications Apixaban (Eliquis) 5 mg PO DAILY [facility] Last Admin: 06/22/18 11:30 Dose: 5 mg Aspirin (Aspirin Chewable) 81 mg PO DAILY [facility] Last Admin: 06/22/18 11:29 Dose: 81 mg Carvedilol (Coreg) 6.25 mg PO BID [facility] Last Admin: 06/22/18 17:44 Dose: 6.25 mg Carvedilol (Coreg) 3.125 mg PO BID [facility] Last Admin: 06/22/18 17:44 Dose: 3.125 mg Dextrose (Dextrose 50% Inj) 0 ml IV STAT PRN; Protocol PRN Reason: Hypoglycemia Protocol Dextrose (Glutose 15) 0 gm PO ONCE PRN; Protocol PRN Reason: Hypoglycemia Protocol Digoxin (Lanoxin) 0.25 mg PO DAILY@1800 [facility] Last Admin: 06/22/18 17:44 Dose: 0.25 mg Ferric Sodium Gluconate Complex (Ferrlecit) 125 mg IVPB DAILY [facility] Stop: 06/29/18 10:01 Last Admin: 06/22/18 13:56 Dose: 125 mg Finasteride (Proscar) 5 mg PO DAILY [facility] Last Admin: 06/22/18 11:30 Dose: 5 mg Furosemide (Lasix) 20 mg IVP BID [facility] Last Admin: 06/22/18 17:44 Dose: 20 mg Glucagon (Glucagen Diagnostic Kit) 0 mg IM STAT PRN; Protocol PRN Reason: Hypoglycemia Protocol Dextrose (Dextrose 5% In Water 1000 Ml) 1,000 mls @ 0 mls/hr IV .Q0M PRN; Protocol PRN Reason: Hypoglycemia Protocol Insulin Human Regular (Novolin R) 0 unit SC [facility]; Protocol Last Admin: 06/22/18 16:35 Dose: Not Given Mirtazapine (Remeron) 7.5 mg PO DAILY [facility] Last Admin: 06/22/18 11:30 Dose: 7.5 mg Pantoprazole Sodium (Protonix Ec Tab) 40 mg PO DAILY [facility] Last Admin: 06/22/18 11:30 Dose: 40 mg Rosuvastatin Calcium (Crestor) 40 mg PO HS [facility] Last Admin: 06/21/18 22:11 Dose: 40 mg Tamsulosin HCl (Flomax) 0.4 mg PO DAILY [facility] Last Admin: 06/22/18 11:30 Dose: 0.4 mg - Labs Labs: 06/22/18 06:10 06/22/18 06:10 PT 14.3 SECONDS (9.7-12.2) H 06/20/18 17:21 INR 1.3 06/20/18 17:21 APTT 34 SECONDS (21-34) 06/20/18 17:21 Attending/Attestation - Attestation I have personally seen and examined this patient.: Yes I have fully participated in the care of the patient.: Yes I have reviewed all pertinent clinical information, including history, physical exam and plan: Yes Notes (Text): Atrial flutter Acute on Chronic Congestive heart failure Acute on Chronic Kidney disease
[2018-06-22] MEDS: (Novolin R) Insulin Human Regular 100 units/ml vial SC SCH ×4 (08:00→21:31)
--- NOTE | 2018-06-22 09:03 | CP.PCM.PN ---
Subjective - Date & Time of Evaluation Date of Evaluation: 06/22/18 Time of Evaluation: 08:58 - Subjective Subjective: Progress note for Dr. Powers Patient was seen and examined at bedside in no acute distress. Patient was oob to chair. Patient complains of bilateral LE edema and discomfort. He also states he has not had a BM in 3 days. He currently denies SOB, cough, chest pain, palpitations, nausea, vomiting, fevers, headaches, dizziness, abdominal pain, dysuria, hematuria, increase frequency. Objective - Vital Signs/Intake and Output Vital Signs (last 24 hours): Temp Pulse Resp BP Pulse Ox 98 F 114 H 21 114/70 95 06/22/18 04:00 06/22/18 04:00 06/22/18 04:00 06/22/18 04:00 06/22/18 04:00 Intake and Output: 06/22/18 06/22/18 06:59 18:59 Intake Total 370 Output Total 700 Balance -330 - Medications Medications: Current Medications Apixaban (Eliquis) 5 mg PO DAILY [facility] Last Admin: 06/21/18 09:42 Dose: 5 mg Aspirin (Aspirin Chewable) 81 mg PO DAILY [facility] Last Admin: 06/21/18 09:37 Dose: 81 mg Carvedilol (Coreg) 6.25 mg PO BID [facility] Last Admin: 06/21/18 17:05 Dose: 6.25 mg Dextrose (Dextrose 50% Inj) 0 ml IV STAT PRN; Protocol PRN Reason: Hypoglycemia Protocol Dextrose (Glutose 15) 0 gm PO ONCE PRN; Protocol PRN Reason: Hypoglycemia Protocol Digoxin (Lanoxin) 0.25 mg PO Q2D [facility] Last Admin: 06/21/18 13:37 Dose: 0.25 mg Finasteride (Proscar) 5 mg PO DAILY [facility] Last Admin: 06/21/18 09:36 Dose: 5 mg Furosemide (Lasix) 40 mg PO DAILY [facility] Last Admin: 06/21/18 09:36 Dose: 40 mg Glucagon (Glucagen Diagnostic Kit) 0 mg IM STAT PRN; Protocol PRN Reason: Hypoglycemia Protocol Dextrose (Dextrose 5% In Water 1000 Ml) 1,000 mls @ 0 mls/hr IV .Q0M PRN; Protocol PRN Reason: Hypoglycemia Protocol Influenza Virus Vaccine (Flucelvax Quad [id number] Syr) 60 mcg IM .ONCE ONE Stop: 06/22/18 10:01 Insulin Human Regular (Novolin R) 0 unit SC [facility]; Protocol Last Admin: 06/21/18 22:11 Dose: Not Given Mirtazapine (Remeron) 7.5 mg PO DAILY [facility] Last Admin: 06/21/18 09:36 Dose: 7.5 mg Pantoprazole Sodium (Protonix Ec Tab) 40 mg PO DAILY [facility] Last Admin: 06/21/18 09:38 Dose: 40 mg Pneumococcal Polyvalent Vaccine (Pneumovax 23 Vaccine) 0.5 ml IM .ONCE ONE Stop: 06/22/18 10:01 Rosuvastatin Calcium (Crestor) 40 mg PO HS [facility] Last Admin: 06/21/18 22:11 Dose: 40 mg Tamsulosin HCl (Flomax) 0.4 mg PO DAILY [facility] Last Admin: 06/21/18 09:38 Dose: 0.4 mg - Labs Labs: 06/22/18 06:10 06/22/18 06:10 PT 14.3 SECONDS (9.7-12.2) H 06/20/18 17:21 INR 1.3 06/20/18 17:21 APTT 34 SECONDS (21-34) 06/20/18 17:21 - Additional Findings Additional findings: - Constitutional Appears: No Acute Distress - Head Exam Head Exam: ATRAUMATIC, NORMAL INSPECTION - Eye Exam Eye Exam: EOMI, Normal appearance - ENT Exam ENT Exam: Mucous Membranes Moist - Respiratory Exam Respiratory Exam: Decreased Breath Sounds and Rales in R lower lung; Poor air movement in Left lower lung, NORMAL BREATHING PATTERN. absent: Rhonchi, Wheezes - Cardiovascular Exam Cardiovascular Exam: Tachycardia, Irregular Rhythm, +S1, +S2 - GI/Abdominal Exam GI & Abdominal Exam: Distended, Normal Bowel Sounds, Soft. absent: Firm, Guarding, Tenderness - Exam Exam: Scrotal Swelling - Extremities Exam Extremities exam: Positive for: pedal edema (below the knee), tenderness, pedal pulses present (diminished due to edema). Negative for: calf tenderness - Neurological Exam Neurological exam: Alert, Oriented x3 - Psychiatric Exam Psychiatric exam: Normal Affect, Normal Mood - Skin Skin Exam: Dry, Normal Color, Warm Assessment and Plan - Assessment and Plan (Free Text) Plan: 67 year old male with a history of CAD, CABG, NSTEMI, DM, CHF, BPH and noncompliance with medications, presents to the hospital with bilateral LE edema, chest pain, and palpitations. [employer] consulted for TRAVIS on CKD. TRAVIS on CKD - Improved - At admission, BUN/Cr 29/1.6; BUN/ Cr has improved to 23/1.3. - Continue IV Fluids - UA: negative for protein, blood - Urine Microalbumin: 2.6 - Urine random total protein: 270 - Urine Cr: 37 - Microalb/Cr Ratio: 69 CHF exacerbation - BNP 2080 at admission, B/L LE edema, pleural effusions, ascites - Imaging: * CXR: bibasilar atelectsis/infiltrates and small pleural effusions; mild pulmonary venous congestion; borderline cardiomegaly. * Repeat CXR (06/21/18): cardiomegaly, pulm venous congestion and b/l pleural effusions. finding compatible with CHF; pulm venous congestion appears slightly increased since prior exam; b/l pleural effusions w/inferred mild compressive atelectatic changes are believed similar to prior studies. * Venous dopplers: negative * Echo from 12/2017: EF 34.9%, normal LV and LV wall thickness; systolic function is moderately-severely impaired; flattened septum; mild MR and TR * Echo ordered: f/u * Chest CT: ordered (poor air movement in L lung base and pleural effusions) - Medications: - Home medications were continued: Crestor 40mg PO HS, Aspirin 81mg PO daily - Continue Coreg 6.25mg PO BID - Would consider IVAN/ARB once BP improves - Lasix 20mg IV BID (changed on 06/22/18 from Lasix 40mg PO daily) AFlutter - On telemetry - [employer]: Dr. Llanes - Continue Eliquis 5mg PO daily, Coreg 6.25mg PO BID, Digoxin 0.25mg PO Q2D Iron deficiency anemia - Iron 44L, TIBC 350, %sat 10L, ferritin 27.8, retic count 1.2 - Started IV iron for a total of 8 doses - Continue to monitor History of Cirrhosis - Abd US (12/2017): cirrhotic appearing liver; incompletely visualized low volume ascites; right pleural effusion - Repeat abdominal US: suspect hepatic cirrhosis; moderate ascites; moderate right pleural effusion BPH - Continue home medications: Finasteride 5mg PO daily, Flomax 0.4mg PO daily Electrolyte Abnormality - Hypomagnesemia 1.5; gave 1bag of MG 1Gm on 06/21/18. - Continue to monitor Mg level and will treat accordingly Case discussed with Dr. Priya Lemus, PGY2
[2018-06-22] MEDS ORDERED: Pneumococcal 23-Valent Vaccine IM ONE (10:00)
[2018-06-22] MEDS ORDERED: Influenza Vaccine 60 mcg/0.5 mL SYR (4YR UP) IM ONE (10:00)
--- NOTE | 2018-06-22 10:48 | US ---
Date of service: 06/21/2018 HISTORY: distended; hx of cirrhosis COMPARISON: None. TECHNIQUE: Sonographic evaluation of the right upper quadrant of the abdomen. FINDINGS: LIVER: Measures 16.3 cm in length. There is diffuse increased echogenicity with nodular contour. No mass. No intrahepatic bile duct dilatation. GALLBLADDER: There are no gallstones or pericholecystic fluid. The sonographic Kim's sign is negative. There is mild diffuse gallbladder wall thickening secondary to hepatic disease. COMMON BILE DUCT: Measures 4.0 mm. No stones. No dilatation. PANCREAS: Unremarkable as visualized. No mass. No ductal dilatation. RIGHT KIDNEY: Measures 11.8 cm in length. Normal echogenicity. No calculus, mass, or hydronephrosis. AORTA: No aneurysmal dilatation. IVC: Unremarkable. OTHER FINDINGS: There is moderate right pleural effusion and moderate abdominal ascites. There is pulsatile flow in the portal vein. IMPRESSION: Suspect hepatic cirrhosis. Moderate abdominal ascites and moderate right pleural effusion.
[2018-06-22] MEDS: Pantoprazole 40 mg EC Tab PO SCH (11:30)
--- NOTE | 2018-06-22 12:46 | VASCLAB ---
Date of service: 06/21/2018 PROCEDURE: Lower Extremity Venous Duplex Exam. HISTORY: Leg swelling PRIORS: None. TECHNIQUE: Bilateral common femoral, femoral, popliteal and posterior tibial, peroneal and great saphenous veins were evaluated. Flow was assessed with color Doppler, compressibility, assessment of phasic flow and augmentation response. Report prepared by Trevor Nowak, DESI, RVT FINDINGS: RIGHT: 1. Common Femoral Vein: 1.1. Compressibility - Fully compressible: Thrombus - None : Flow - Phasic: Augmentation -Normal: Reflux - None. 2. Femoral Vein: 2.1. Compressibility - Fully compressible: Thrombus - None : Flow - Phasic: Augmentation -Normal: Reflux - Yes. 3. Popliteal Veines 3.1. Compressibility - Fully compressible: Thrombus - None : Flow - Phasic: Augmentation -Normal: Reflux - Yes. 4. Posterior Tibial Vein: 4.1. Compressibility - Fully compressible: Thrombus - None: Flow - Phasic: Augmentation -Normal: Reflux - None. 5. Peroneal Vein: 5.1. Compressibility - Fully compressible: Thrombus - None: Flow - Phasic: Augmentation -Normal: Reflux - None. 6. Great Saphenous Vein: 6.1. Compressibility - Fully compressible: Thrombus - None: Flow - Phasic: Augmentation - Normal: Reflux - None. LEFT: 1. Common Femoral Vein: 1.1. Compressibility - Fully compressible: Thrombus - None: Flow - Phasic: Augmentation -Normal: Reflux - None. 2. Femoral Vein: 2.1. Compressibility - Fully compressible: Thrombus - None: Flow - Phasic: Augmentation -Normal: Reflux - None. 3. Popliteal Vein: 3.1. Compressibility - Fully compressible: Thrombus - None : Flow - Phasic: Augmentation -Normal: Reflux - Yes. 4. Posterior Tibial Vein: 4.1. Compressibility - Fully compressible: Thrombus - None: Flow - Phasic: Augmentation -Normal: Reflux - None. 5. Peroneal Vein: 5.1. Compressibility - Fully compressible: Thrombus - None: Flow - Phasic: Augmentation -Normal: Reflux - Yes. 6. Great Saphenous Vein: 6.1. Compressibility - Fully compressible: Thrombus - None: Flow - Phasic: Augmentation - Normal: Reflux - None. OTHER FINDINGS: Right: None significant. Left: None significant. IMPRESSION: Right: No evidence of deep or superficial vein thrombosis of the right lower extremity. Valvular incompetence of the right femoral and popliteal veins. Left: No evidence of deep or superficial vein thrombosis of the left lower extremity. Valvular incompetence of the left popliteal and peroneal veins.
[2018-06-22] MEDS: Ferric Sodium Gluconat Complex 62.5 mg/5 ml Vial IVPB SCH (13:56)
--- NOTE | 2018-06-22 15:04 | CT ---
Date of service: 06/22/2018 PROCEDURE: CT Chest without contrast HISTORY: pleural effusion? COMPARISON: Comparison is made to the previous study dated 01/07/2018 TECHNIQUE: Contiguous axial images were obtained through the chest without intravenous contrast enhancement. Sagittal and coronal reconstructions were performed. Radiation dose: Total exam DLP = 1079.35 mGy-cm. This CT exam was performed using one or more of the following dose reduction techniques: Automated exposure control, adjustment of the mA and/or kV according to patient size, and/or use of iterative reconstruction technique. FINDINGS: LUNGS: Partial atelectasis and collapse of the lower lobes due to pleural effusions. Perihilar opacity seen bilaterally. Airspace consolidation at the right lower lobe which could represent atelectasis or pneumonia. MEDIASTINUM: Unremarkable thoracic aorta. No aneurysm. The heart is moderately enlarged. Main pulmonary artery unremarkable. No vascular congestion. No evidence of new lymphadenopathy. Foci of atherosclerotic calcification noted. PLEURA: Large bilateral pleural effusions. BONES: No fracture. No destructive lesion. UPPER ABDOMEN: Ascites noted in the abdomen. OTHER FINDINGS: None. IMPRESSION: Bilateral large pleural effusions. Partial consolidation of the lower lobes due to pleural effusions. Pulmonary congestion and foci of airspace consolidation at the lower lobes larger on the right may repeat also represent atelectasis or aspiration. Cardiomegaly. Ascites in the upper abdomen.
--- NOTE | 2018-06-22 16:48 | CARD ---
APPROVED REPORT Date of service: 06/22/2018 EXAM: Two-dimensional and M-mode echocardiogram with Doppler and color Doppler. Other Information Quality : GoodRhythm : Atrial Flutter INDICATION Peripheral Edema 2D DIMENSIONS IVSd1.2 (0.7-1.1cm)LVDd4.1 (3.9-5.9cm) PWd0.9 (0.7-1.1cm)LA Evbeie01 (18-58mL) LVDs3.6 (2.5-4.0cm)FS (%) 12.3 % LVEF (%)45.0 (>50%)LVEF (Torres's)48.01 % M-Mode DIMENSIONS Left Atrium (MM)4.17 (2.5-4.0cm)IVSd1.02 (0.7-1.1cm) Aortic Root3.39 (2.2-3.7cm)LVDd5.03 (4.0-5.6cm) Aortic Cusp Exc.2.18 (1.5-2.0cm)PWd1.09 (0.7-1.1cm) FS (%) 24 %LVDs3.84 (2.0-3.8cm) LVEF (%)47 (>50%) Mitral Valve MV E Kvnjfaca29.7cm/sMV A Enxsrpyg69.7cm/sE/A ratio2.8 TDI Lateral E' Peak V12.61cm/sMedial E' Peak V5.25cm/sE/Lateral E'7.8 E/Medial E'18.8 Tricuspid Valve TR Peak Ojisjxvp276lm/sTR Peak Gr.[id number] LEFT VENTRICLE The left ventricle is normal size. There is normal left ventricular wall thickness. Left ventricle systolic function is mildly to moderately impaired. The Ejection Fraction is 40-45%. There is global hypokinesis of the left ventricle. Transmitral Doppler flow pattern is Grade II-pseudonormal filling dynamics. There is no ventricular septal defect visualized. RIGHT VENTRICLE The right ventricle is normal size. There is normal right ventricular wall thickness. ATRIA The left atrium is mildly dilated. The right atrium size is normal. AORTIC VALVE The aortic valve is mildly sclerotic. The aortic valve is tri-cuspid. No aortic regurgitation is present. There is no aortic valvular stenosis. MITRAL VALVE The mitral valve is normal in structure. There is no evidence of mitral valve prolapse. Mitral regurgitation is trace to mild. TRICUSPID VALVE The tricuspid valve is normal in structure. There is mild tricuspid regurgitation. Right ventricular systolic pressure is estimated at 30-40 mmHg. There is mild pulmonary hypertension. PULMONIC VALVE The pulmonary valve is normal in structure. There is trace pulmonic valvular regurgitation. GREAT VESSELS The aortic root is normal in size. The ascending aorta is normal in size. The IVC is normal in size and collapses >50% with inspiration. PERICARDIAL EFFUSION There is a small circumferential pericardial effusion. There is large complex left pleural effusion. <Conclusion> Left ventricle systolic function is mildly to moderately impaired. The Ejection Fraction is 40-45%. Transmitral Doppler flow pattern is Grade II-pseudonormal filling dynamics. Mitral regurgitation is trace to mild. There is mild pulmonary hypertension. There is a small circumferential pericardial effusion. There is large complex left pleural effusion.
[2018-06-22] MEDS: Digoxin 250 mcg (0.25 mg) Tab PO SCH (17:44)
[2018-06-23 06:02] LABS: BASO % 0.6 % (0.0-2.0); EOS # 0.1 K/uL (0.0-0.7); EOS % 1.3 % (0.0-4.0); HEMOGLOBIN 11.4 g/dL (12.0-18.0); LYMPH % 19.9 % (20.0-40.0); MEAN CORPUSCULAR HEMOGLOBIN 27.1 pg (27.0-31.0); MEAN CORPUSCULAR HGB CONC 31.8 g/dL (33.0-37.0); MEAN PLATELET VOLUME 10.2 fL (7.2-11.7); MONO # 0.3 K/uL (0.0-0.8); MONO % 7.3 % (0.0-10.0); NEUT # 3.4 K/uL (1.8-7.0); NEUT % 70.9 % (50.0-75.0); NRBC % 0.1 % (0.0-2.0); RBC 4.21 Mil/uL (4.40-5.90); RED CELL DISTRIBUTION WIDTH 16.1 % (11.5-14.5); WHITE BLOOD COUNT 4.8 K/uL (4.8-10.8)
[2018-06-23 06:28] LABS: ALB/GLOB RATIO 1.1 (1.0-2.1); ALBUMIN 3.8 g/dL (3.5-5.0); CALCIUM 9.3 mg/dl (8.6-10.4)
[2018-06-23] MEDS: (Novolin R) Insulin Human Regular 100 units/ml vial SC SCH ×4 (08:27→22:20)
[2018-06-23] MEDS: Ferric Sodium Gluconat Complex 62.5 mg/5 ml Vial IVPB SCH (09:09)
[2018-06-23] MEDS: Pantoprazole 40 mg EC Tab PO SCH (09:11)
--- NOTE | 2018-06-23 13:57 | CP.PCM.PN ---
<Cat Mac - Last Filed: 06/23/18 14:46> Subjective - Date & Time of Evaluation Date of Evaluation: 06/23/18 Time of Evaluation: 14:46 - Subjective Subjective: Medicine Note for Hospitalist Service Patient was seen and examined at bedside. Patient was laying comfortably flat in bed, sleeping. Patient reports his breathing has improved despite findings noted on CT scan. Objective - Vital Signs/Intake and Output Vital Signs (last 24 hours): Temp Pulse Resp BP Pulse Ox 97.6 F 114 H 25 H 106/77 95 06/23/18 12:00 06/23/18 04:00 06/23/18 04:00 06/23/18 09:12 06/23/18 04:00 Intake and Output: 06/23/18 06/23/18 06:59 18:59 Intake Total 480 290 Output Total 1400 300 Balance -920 -10 - Medications Medications: Current Medications Apixaban (Eliquis) 5 mg PO DAILY [facility] Last Admin: 06/23/18 11:29 Dose: 5 mg Aspirin (Aspirin Chewable) 81 mg PO DAILY [facility] Last Admin: 06/23/18 09:09 Dose: 81 mg Carvedilol (Coreg) 6.25 mg PO BID [facility] Last Admin: 06/23/18 09:12 Dose: 6.25 mg Carvedilol (Coreg) 3.125 mg PO BID [facility] Last Admin: 06/23/18 09:11 Dose: 3.125 mg Dextrose (Dextrose 50% Inj) 0 ml IV STAT PRN; Protocol PRN Reason: Hypoglycemia Protocol Dextrose (Glutose 15) 0 gm PO ONCE PRN; Protocol PRN Reason: Hypoglycemia Protocol Digoxin (Lanoxin) 0.25 mg PO DAILY@1800 [facility] Last Admin: 06/22/18 17:44 Dose: 0.25 mg Ferric Sodium Gluconate Complex (Ferrlecit) 125 mg IVPB DAILY [facility] Stop: 06/29/18 10:01 Last Admin: 06/23/18 09:09 Dose: 125 mg Finasteride (Proscar) 5 mg PO DAILY [facility] Last Admin: 06/23/18 09:11 Dose: 5 mg Furosemide (Lasix) 20 mg IVP BID [facility] Last Admin: 06/23/18 09:12 Dose: 20 mg Glucagon (Glucagen Diagnostic Kit) 0 mg IM STAT PRN; Protocol PRN Reason: Hypoglycemia Protocol Dextrose (Dextrose 5% In Water 1000 Ml) 1,000 mls @ 0 mls/hr IV .Q0M PRN; Protocol PRN Reason: Hypoglycemia Protocol Insulin Human Regular (Novolin R) [address] [facility]; Protocol Last Admin: 06/23/18 13:00 Dose: 3 units Mirtazapine (Remeron) 7.5 mg PO DAILY [facility] Last Admin: 06/23/18 09:14 Dose: 7.5 mg Pantoprazole Sodium (Protonix Ec Tab) 40 mg PO DAILY [facility] Last Admin: 06/23/18 09:11 Dose: 40 mg Rosuvastatin Calcium (Crestor) 40 mg PO HS [facility] Last Admin: 06/22/18 21:29 Dose: 40 mg Spironolactone (Aldactone) 25 mg PO BID [facility] Last Admin: 06/23/18 11:31 Dose: 25 mg Tamsulosin HCl (Flomax) 0.4 mg PO DAILY [facility] Last Admin: 06/23/18 09:10 Dose: 0.4 mg - Labs Labs: 06/23/18 05:54 06/23/18 05:54 PT 14.3 SECONDS (9.7-12.2) H 06/20/18 17:21 INR 1.3 06/20/18 17:21 APTT 34 SECONDS (21-34) 06/20/18 17:21 - Constitutional Appears: No Acute Distress - Head Exam Head Exam: NORMAL INSPECTION, NORMOCEPHALIC - Eye Exam Eye Exam: EOMI, Normal appearance, PERRL Pupil Exam: NORMAL ACCOMODATION - ENT Exam ENT Exam: Mucous Membranes Dry - Respiratory Exam Respiratory Exam: Decreased Breath Sounds, Rales - Cardiovascular Exam Cardiovascular Exam: Tachycardia, Irregular Rhythm Additional comments: atrial flutter noted on tele - GI/Abdominal Exam GI & Abdominal Exam: Soft, Normal Bowel Sounds. absent: Distended, Tenderness - Extremities Exam Extremities Exam: Normal Inspection. absent: Pedal Edema, Tenderness - Neurological Exam Neurological Exam: Alert, Awake, Oriented x3 - Psychiatric Exam Psychiatric exam: Normal Affect, Normal Mood - Skin Skin Exam: Dry, Intact, Normal Color, Warm Assessment and Plan - Assessment and Plan (Free Text) Assessment: 67 yo homeless male with PMH of CAD with NSTEMI (11/25/17 at [facility]), s/p CABG at [place] (October 2017), DM2, CHF, non-compliance with outpatient medications who presented to the ED c/o chest pain and palpitations occurring since last night. Admitted to ICU for A-flutter with rapid HR, and [id number] systolic CHF. Patient now downgraded to telemetry. Plan: Atrial flutter - Cardiology consulted (Mario Alberto) - Monitor on telemetry - Increase Digoxin to 0.25 mg PO daily - Increase Coreg to 9.375 mg PO BID - Lasix 20 mg IV BID - Eliquis 5 mg PO daily Acute on Chronic Congestive heart failure - Echo: EF 34% - BNP 3080 - CXR on admission: bibasilar atelectasis/infiltrates and small pleural effusions, mild pulm venous congestion - CT chest: large bilateral pleural effusions - LE Doppler: no DVTs -Lasix 20mg IVP BID and aldactone 25mg PO BID Acute on Chronic Kidney disease - BUN/Cr 29/1.6 on admission-->23/1.3 - Nephrology consulted (Priya)- urine studies pending Anemia - Hgb stable - Monitor H&H - Iron low (44), ferritin and TOBC wnl - Ferrlecit 125 mg IV daily x8 doses Coronary artery disease- s/p CABG - Trop negative x3 - Lipid panel wnl - ASA 81 mg PO daily - Crestor 40 mg PO QHS Benign prostatic hypertrophy - Proscar 5 mg PO daily - Flomax 0.4 mg PO daily Type 2 diabetes mellitus - Accuchecks ACHS - Hypoglycemia protocol - ISS - f/u A1c Cirrhosis - Abdominal US: hepatic cirrhosis, moderate ascites Depression - Remeron 7.5 mg PO QHS Prophylactic Measures VTE: Eliquis GI: Protonix 40 mg PO daily Disposition: Patient still in flutter, will adjust coreg. Aldactone was added in light of moderate bilateral pleural effusions. Case discussed with Cat Swanson DO, PGY2 <Lawanda Lynn - Last Filed: 06/24/18 16:12> Objective - Vital Signs/Intake and Output Vital Signs (last 24 hours): Temp Pulse Resp BP Pulse Ox 98.3 F 124 H 93 H 137/90 95 06/24/18 07:00 06/24/18 08:10 06/24/18 07:00 06/24/18 08:59 06/23/18 23:45 Intake and Output: 06/24/18 06/24/18 06:59 18:59 Intake Total 300 600 Output Total 400 1300 Balance -100 -700 - Medications Medications: Current Medications Apixaban (Eliquis) 5 mg PO DAILY [facility] Last Admin: 06/24/18 08:59 Dose: 5 mg Aspirin (Aspirin Chewable) 81 mg PO DAILY [facility] Last Admin: 06/24/18 08:59 Dose: 81 mg Carvedilol (Coreg) 6.25 mg PO BID [facility] Last Admin: 06/24/18 08:59 Dose: 6.25 mg Carvedilol (Coreg) 3.125 mg PO BID [facility] Last Admin: 06/24/18 08:59 Dose: 3.125 mg Dextrose (Dextrose 50% Inj) 0 ml IV STAT PRN; Protocol PRN Reason: Hypoglycemia Protocol Dextrose (Glutose 15) 0 gm PO ONCE PRN; Protocol PRN Reason: Hypoglycemia Protocol Digoxin (Lanoxin) 0.25 mg PO DAILY@1800 [facility] Last Admin: 06/23/18 18:01 Dose: 0.25 mg Ferric Sodium Gluconate Complex (Ferrlecit) 125 mg IVPB DAILY [facility] Stop: 06/29/18 10:01 Last Admin: 06/24/18 08:59 Dose: 125 mg Finasteride (Proscar) 5 mg PO DAILY [facility] Last Admin: 06/24/18 08:59 Dose: 5 mg Furosemide (Lasix) 20 mg IVP BID [facility] Last Admin: 06/24/18 08:59 Dose: 20 mg Glucagon (Glucagen Diagnostic Kit) 0 mg IM STAT PRN; Protocol PRN Reason: Hypoglycemia Protocol Dextrose (Dextrose 5% In Water 1000 Ml) 1,000 mls @ 0 mls/hr IV .Q0M PRN; Protocol PRN Reason: Hypoglycemia Protocol Insulin Human Regular (Novolin R) 0 unit SC ACHS [facility]; Protocol Last Admin: 06/24/18 13:06 Dose: 2 units Mirtazapine (Remeron) 7.5 mg PO DAILY [facility] Last Admin: 06/24/18 08:59 Dose: 7.5 mg Pantoprazole Sodium (Protonix Ec Tab) 40 mg PO DAILY [facility] Last Admin: 06/24/18 08:59 Dose: 40 mg Rosuvastatin Calcium (Crestor) 40 mg PO HS [facility] Last Admin: 06/23/18 21:59 Dose: 40 mg Spironolactone (Aldactone) 25 mg PO BID [facility] Last Admin: 06/24/18 08:59 Dose: 25 mg Tamsulosin HCl (Flomax) 0.4 mg PO DAILY [facility] Last Admin: 06/24/18 08:59 Dose: 0.4 mg - Labs Labs: 06/24/18 07:47 06/24/18 07:47 PT 14.3 SECONDS (9.7-12.2) H 06/20/18 17:21 INR 1.3 06/20/18 17:21 APTT 34 SECONDS (21-34) 06/20/18 17:21 Attending/Attestation - Attestation I have personally seen and examined this patient.: Yes I have fully participated in the care of the patient.: Yes I have reviewed all pertinent clinical information, including history, physical exam and plan: Yes Notes (Text): 1.Alutter with RVR 2.acute on chronis systolic heart failure 3.noncompliance with meds 4.Acute renal on CRF 5.CAD,CABG 6,DM seen and examined. assessment and the plan discussed with the resident
[2018-06-23] MEDS: Digoxin 250 mcg (0.25 mg) Tab PO SCH (18:01)
--- NOTE | 2018-06-23 23:58 | CP.PCM.PN ---
Subjective - Date & Time of Evaluation Date of Evaluation: 06/23/18 Time of Evaluation: 12:00 - Subjective Subjective: 67 yo M w/ pmh of dm, CAD s/p CABG, afib, systolic CHF and CKD, admitted with acute decompensated CHF, afib/flutter w/ RVR; Patient reports dyspnea improved; increased urination; tolerating diet; Objective - Vital Signs/Intake and Output Vital Signs (last 24 hours): Temp Pulse Resp BP Pulse Ox 97.4 F L 93 H 20 122/76 96 06/23/18 21:25 06/23/18 22:00 06/23/18 21:25 06/23/18 21:25 06/23/18 21:25 Intake and Output: 06/23/18 06/24/18 18:59 06:59 Intake Total 530 Output Total 1300 Balance -770 - Medications Medications: Current Medications Apixaban (Eliquis) 5 mg PO DAILY [facility] Last Admin: 06/23/18 11:29 Dose: 5 mg Aspirin (Aspirin Chewable) 81 mg PO DAILY [facility] Last Admin: 06/23/18 09:09 Dose: 81 mg Carvedilol (Coreg) 6.25 mg PO BID [facility] Last Admin: 06/23/18 18:45 Dose: Not Given Carvedilol (Coreg) 3.125 mg PO BID [facility] Last Admin: 06/23/18 18:45 Dose: Not Given Dextrose (Dextrose 50% Inj) 0 ml IV STAT PRN; Protocol PRN Reason: Hypoglycemia Protocol Dextrose (Glutose 15) 0 gm PO ONCE PRN; Protocol PRN Reason: Hypoglycemia Protocol Digoxin (Lanoxin) 0.25 mg PO DAILY@1800 [facility] Last Admin: 06/23/18 18:01 Dose: 0.25 mg Ferric Sodium Gluconate Complex (Ferrlecit) 125 mg IVPB DAILY [facility] Stop: 06/29/18 10:01 Last Admin: 06/23/18 09:09 Dose: 125 mg Finasteride (Proscar) 5 mg PO DAILY [facility] Last Admin: 06/23/18 09:11 Dose: 5 mg Furosemide (Lasix) 20 mg IVP BID [facility] Last Admin: 06/23/18 18:44 Dose: Not Given Glucagon (Glucagen Diagnostic Kit) 0 mg IM STAT PRN; Protocol PRN Reason: Hypoglycemia Protocol Dextrose (Dextrose 5% In Water 1000 Ml) 1,000 mls @ 0 mls/hr IV .Q0M PRN; Protocol PRN Reason: Hypoglycemia Protocol Insulin Human Regular (Novolin R) 0 unit SC ACHS [facility]; Protocol Last Admin: 06/23/18 22:20 Dose: Not Given Mirtazapine (Remeron) 7.5 mg PO DAILY [facility] Last Admin: 06/23/18 09:14 Dose: 7.5 mg Pantoprazole Sodium (Protonix Ec Tab) 40 mg PO DAILY [facility] Last Admin: 06/23/18 09:11 Dose: 40 mg Rosuvastatin Calcium (Crestor) 40 mg PO HS [facility] Last Admin: 06/23/18 21:59 Dose: 40 mg Spironolactone (Aldactone) 25 mg PO BID [facility] Last Admin: 06/23/18 18:43 Dose: Not Given Tamsulosin HCl (Flomax) 0.4 mg PO DAILY [facility] Last Admin: 06/23/18 09:10 Dose: 0.4 mg - Labs Labs: 06/23/18 05:54 06/23/18 05:54 PT 14.3 SECONDS (9.7-12.2) H 06/20/18 17:21 INR 1.3 06/20/18 17:21 APTT 34 SECONDS (21-34) 06/20/18 17:21 - Constitutional Appears: Non-toxic, No Acute Distress - Eye Exam Eye Exam: Normal appearance - Respiratory Exam Respiratory Exam: absent: Rhonchi, Respiratory Distress - Cardiovascular Exam Cardiovascular Exam: RRR, +S1, +S2. absent: Gallop, Rubs - GI/Abdominal Exam GI & Abdominal Exam: Soft. absent: Distended, Tenderness - Extremities Exam Additional comments: 1+ b/l lower leg edema; - Neurological Exam Neurological Exam: Alert, Awake - Psychiatric Exam Psychiatric exam: Normal Mood. absent: Agitated - Skin Skin Exam: Warm. absent: Cyanosis Assessment and Plan (1) CHF (congestive heart failure) Assessment & Plan: Acute decompensated systolic CHF; symptoms improved; will continue with IV lasix 20 mg bid, adding aldactone to help offset metabolic alkalosis; afib w/ RVR, rate better controlled, f/u with cardiology; Status: Acute (2) Pleural effusion Assessment & Plan: Bilateral pleural effusions likely due to CHF; will continue to optimize CHF status; Status: Acute (3) Metabolic alkalosis Status: Acute (4) CKD (chronic kidney disease) Assessment & Plan: Relatively mild non-proteinuric kidney disease; will need to tolerate some mild increase in serum creatinine with diuresis; Status: Chronic
--- NOTE | 2018-06-24 07:51 | CP.PCM.PN ---
<Cat Mac - Last Filed: 06/24/18 07:49> Subjective - Date & Time of Evaluation Date of Evaluation: 06/24/18 Time of Evaluation: 07:49 - Subjective Subjective: Medicine Note for Hospitalist Service Patient was seen and examined at bedside. Patient reports his breathing has improved, denied any chest pain or shortness of breath. Objective - Vital Signs/Intake and Output Vital Signs (last 24 hours): Temp Pulse Resp BP Pulse Ox 97.8 F 112 H 20 119/76 95 06/23/18 23:45 06/24/18 01:00 06/23/18 23:45 06/23/18 23:45 06/23/18 23:45 Intake and Output: 06/24/18 06/24/18 06:59 18:59 Intake Total 300 Output Total 400 Balance -100 - Medications Medications: Current Medications Apixaban (Eliquis) 5 mg PO DAILY [facility] Last Admin: 06/23/18 11:29 Dose: 5 mg Aspirin (Aspirin Chewable) 81 mg PO DAILY [facility] Last Admin: 06/23/18 09:09 Dose: 81 mg Carvedilol (Coreg) 6.25 mg PO BID [facility] Last Admin: 06/23/18 18:45 Dose: Not Given Carvedilol (Coreg) 3.125 mg PO BID [facility] Last Admin: 06/23/18 18:45 Dose: Not Given Dextrose (Dextrose 50% Inj) 0 ml IV STAT PRN; Protocol PRN Reason: Hypoglycemia Protocol Dextrose (Glutose 15) 0 gm PO ONCE PRN; Protocol PRN Reason: Hypoglycemia Protocol Digoxin (Lanoxin) 0.25 mg PO DAILY@1800 [facility] Last Admin: 06/23/18 18:01 Dose: 0.25 mg Ferric Sodium Gluconate Complex (Ferrlecit) 125 mg IVPB DAILY [facility] Stop: 06/29/18 10:01 Last Admin: 06/23/18 09:09 Dose: 125 mg Finasteride (Proscar) 5 mg PO DAILY [facility] Last Admin: 06/23/18 09:11 Dose: 5 mg Furosemide (Lasix) 20 mg IVP BID [facility] Last Admin: 06/23/18 18:44 Dose: Not Given Glucagon (Glucagen Diagnostic Kit) 0 mg IM STAT PRN; Protocol PRN Reason: Hypoglycemia Protocol Dextrose (Dextrose 5% In Water 1000 Ml) 1,000 mls @ 0 mls/hr IV .Q0M PRN; Protocol PRN Reason: Hypoglycemia Protocol Insulin Human Regular (Novolin R) 0 unit SC ACHS [facility]; Protocol Last Admin: 06/23/18 22:20 Dose: Not Given Mirtazapine (Remeron) 7.5 mg PO DAILY [facility] Last Admin: 06/23/18 09:14 Dose: 7.5 mg Pantoprazole Sodium (Protonix Ec Tab) 40 mg PO DAILY [facility] Last Admin: 06/23/18 09:11 Dose: 40 mg Rosuvastatin Calcium (Crestor) 40 mg PO HS [facility] Last Admin: 06/23/18 21:59 Dose: 40 mg Spironolactone (Aldactone) 25 mg PO BID [facility] Last Admin: 06/23/18 18:43 Dose: Not Given Tamsulosin HCl (Flomax) 0.4 mg PO DAILY [facility] Last Admin: 06/23/18 09:10 Dose: 0.4 mg - Labs Labs: 06/23/18 05:54 06/23/18 05:54 PT 14.3 SECONDS (9.7-12.2) H 06/20/18 17:21 INR 1.3 06/20/18 17:21 APTT 34 SECONDS (21-34) 06/20/18 17:21 - Additional Findings Additional findings: - Constitutional Appears: No Acute Distress - Head Exam Head Exam: NORMAL INSPECTION, NORMOCEPHALIC - Eye Exam Eye Exam: EOMI, Normal appearance, PERRL Pupil Exam: NORMAL ACCOMODATION - ENT Exam ENT Exam: Mucous Membranes Dry - Respiratory Exam Respiratory Exam: Decreased Breath Sounds, Rales - Cardiovascular Exam Cardiovascular Exam: Tachycardia, Irregular Rhythm Additional comments: atrial flutter noted on tele - GI/Abdominal Exam GI & Abdominal Exam: Soft, Normal Bowel Sounds. absent: Distended, Tenderness - Extremities Exam Extremities Exam: Normal Inspection. absent: Pedal Edema, Tenderness - Neurological Exam Neurological Exam: Alert, Awake, Oriented x3 - Psychiatric Exam Psychiatric exam: Normal Affect, Normal Mood - Skin Skin Exam: Dry, Intact, Normal Color, Warm Assessment and Plan - Assessment and Plan (Free Text) Assessment: 67 yo homeless male with PMH of CAD with NSTEMI (11/25/17 at [facility]), s/p CABG at [place] (October 2017), DM2, CHF, non-compliance with outpatient medications who presented to the ED c/o chest pain and palpitations occurring since last night. Admitted to ICU for A-flutter with rapid HR, and [id number] systolic CHF. Plan: Atrial flutter - Cardiology consulted (Mario Alberto) - Monitor on telemetry - Increase Digoxin to 0.25 mg PO daily - Eliquis 5 mg PO daily Acute on Chronic Congestive heart failure - Echo: EF 34% - BNP 3080 - CXR on admission: bibasilar atelectasis/infiltrates and small pleural effusions, mild pulm venous congestion - CT chest: large bilateral pleural effusions - LE Doppler: no DVTs -Lasix 20mg IVP BID and Aldactone 25mg PO BID Acute on Chronic Kidney disease - BUN/Cr 29/1.6 on admission-->23/1.3 - Nephrology consulted (Priya)- urine studies pending Anemia - Hgb stable - Monitor H&H - Iron low (44), ferritin and TOBC wnl - Ferrlecit 125 mg IV daily x8 doses Coronary artery disease- s/p CABG - Trop negative x3 - Lipid panel wnl - ASA 81 mg PO daily - Crestor 40 mg PO QHS Benign prostatic hypertrophy - Proscar 5 mg PO daily - Flomax 0.4 mg PO daily Type 2 diabetes mellitus - Accuchecks ACHS - Hypoglycemia protocol - ISS - f/u A1c Cirrhosis - Abdominal US: hepatic cirrhosis, moderate ascites Depression - Remeron 7.5 mg PO QHS Prophylactic Measures VTE: Eliquis GI: Protonix 40 mg PO daily Disposition: Patient still in flutter, will adjust coreg as patient tolerates. Aldactone was added in light of moderate bilateral pleural effusions. Case discussed with Cat Swanson DO, PGY2 <Lawanda Lynn - Last Filed: 06/24/18 16:09> Objective - Vital Signs/Intake and Output Vital Signs (last 24 hours): Temp Pulse Resp BP Pulse Ox 98.3 F 124 H 93 H 137/90 95 06/24/18 07:00 06/24/18 08:10 06/24/18 07:00 06/24/18 08:59 06/23/18 23:45 Intake and Output: 06/24/18 06/24/18 06:59 18:59 Intake Total 300 600 Output Total 400 1300 Balance -100 -700 - Medications Medications: Current Medications Apixaban (Eliquis) 5 mg PO DAILY [facility] Last Admin: 06/24/18 08:59 Dose: 5 mg Aspirin (Aspirin Chewable) 81 mg PO DAILY [facility] Last Admin: 06/24/18 08:59 Dose: 81 mg Carvedilol (Coreg) 6.25 mg PO BID [facility] Last Admin: 06/24/18 08:59 Dose: 6.25 mg Carvedilol (Coreg) 3.125 mg PO BID [facility] Last Admin: 06/24/18 08:59 Dose: 3.125 mg Dextrose (Dextrose 50% Inj) 0 ml IV STAT PRN; Protocol PRN Reason: Hypoglycemia Protocol Dextrose (Glutose 15) 0 gm PO ONCE PRN; Protocol PRN Reason: Hypoglycemia Protocol Digoxin (Lanoxin) 0.25 mg PO DAILY@1800 [facility] Last Admin: 06/23/18 18:01 Dose: 0.25 mg Ferric Sodium Gluconate Complex (Ferrlecit) 125 mg IVPB DAILY [facility] Stop: 06/29/18 10:01 Last Admin: 06/24/18 08:59 Dose: 125 mg Finasteride (Proscar) 5 mg PO DAILY [facility] Last Admin: 06/24/18 08:59 Dose: 5 mg Furosemide (Lasix) 20 mg IVP BID [facility] Last Admin: 06/24/18 08:59 Dose: 20 mg Glucagon (Glucagen Diagnostic Kit) 0 mg IM STAT PRN; Protocol PRN Reason: Hypoglycemia Protocol Dextrose (Dextrose 5% In Water 1000 Ml) 1,000 mls @ 0 mls/hr IV .Q0M PRN; Protocol PRN Reason: Hypoglycemia Protocol Insulin Human Regular (Novolin R) 0 unit SC [facility]; Protocol Last Admin: 06/24/18 13:06 Dose: 2 units Mirtazapine (Remeron) 7.5 mg PO DAILY [facility] Last Admin: 06/24/18 08:59 Dose: 7.5 mg Pantoprazole Sodium (Protonix Ec Tab) 40 mg PO DAILY [facility] Last Admin: 06/24/18 08:59 Dose: 40 mg Rosuvastatin Calcium (Crestor) 40 mg PO HS [facility] Last Admin: 06/23/18 21:59 Dose: 40 mg Spironolactone (Aldactone) 25 mg PO BID [facility] Last Admin: 06/24/18 08:59 Dose: 25 mg Tamsulosin HCl (Flomax) 0.4 mg PO DAILY [facility] Last Admin: 06/24/18 08:59 Dose: 0.4 mg - Labs Labs: 06/24/18 07:47 06/24/18 07:47 PT 14.3 SECONDS (9.7-12.2) H 06/20/18 17:21 INR 1.3 06/20/18 17:21 APTT 34 SECONDS (21-34) 06/20/18 17:21 Attending/Attestation - Attestation I have personally seen and examined this patient.: Yes I have fully participated in the care of the patient.: Yes I have reviewed all pertinent clinical information, including history, physical exam and plan: Yes Notes (Text): 1.Atrial flutter/afib continue asprin,eliquis, digoxin and coreg(6.25plus 3.125) spoke to RN to continue missing doses 2.Acute on Chronic Congestive heart failure EF 34%,noncompliance with meds Lasix 20mg IVP BID and Aldactone 25mg PO BID 3.Acute on Chronic Kidney disease-stable 4. Anemia 5.Coronary artery disease- s/p CABG 6.Benign prostatic hypertrophy 7.Type 2 diabetes mellitus 8.Cirrhosis 9.Depression
[2018-06-24 07:53] LABS: BASO % 0.5 % (0.0-2.0); EOS # 0.1 K/uL (0.0-0.7); EOS % 1.9 % (0.0-4.0); HEMOGLOBIN 10.8 g/dL (12.0-18.0); MEAN CORPUSCULAR HEMOGLOBIN 27.1 pg (27.0-31.0); MEAN CORPUSCULAR HGB CONC 31.9 g/dL (33.0-37.0); MEAN PLATELET VOLUME 9.3 fL (7.2-11.7); MONO # 0.5 K/uL (0.0-0.8); MONO % 9.5 % (0.0-10.0); NEUT # 3.5 K/uL (1.8-7.0); NEUT % 69.1 % (50.0-75.0); NRBC % 0.5 % (0.0-2.0); RED CELL DISTRIBUTION WIDTH 16.1 % (11.5-14.5)
[2018-06-24 08:19] LABS: ALB/GLOB RATIO 1.1 (1.0-2.1); ALBUMIN 3.6 g/dL (3.5-5.0); ALT/SGPT 16 U/L (21-72); AST/SGOT 30 U/L (17-59); BLOOD UREA NITROGEN 27 mg/dL (9-20); CALCIUM 9.1 mg/dl (8.6-10.4); GFR NON-AFRICAN AMERICAN 51
[2018-06-24] MEDS: (Novolin R) Insulin Human Regular 100 units/ml vial SC SCH ×4 (08:45→21:57)
[2018-06-24] MEDS: Ferric Sodium Gluconat Complex 62.5 mg/5 ml Vial IVPB SCH (08:59)
[2018-06-24] MEDS: Pantoprazole 40 mg EC Tab PO SCH (08:59)
[2018-06-24] MEDS: Digoxin 250 mcg (0.25 mg) Tab PO SCH (18:40)
[2018-06-25] MEDS: (Novolin R) Insulin Human Regular 100 units/ml vial SC SCH ×4 (07:25→22:27)
[2018-06-25 07:41] LABS: BASO % 0.6 % (0.0-2.0); EOS # 0.1 K/uL (0.0-0.7); HEMOGLOBIN 10.9 g/dL (12.0-18.0); LYMPH # 1.1 K/uL (1.0-4.3); LYMPH % 21.7 % (20.0-40.0); MEAN CELL VOLUME 84.5 fL (80.0-94.0); MEAN CORPUSCULAR HEMOGLOBIN 27.4 pg (27.0-31.0); MEAN CORPUSCULAR HGB CONC 32.5 g/dL (33.0-37.0); MEAN PLATELET VOLUME 9.6 fL (7.2-11.7); MONO # 0.6 K/uL (0.0-0.8); MONO % 11.1 % (0.0-10.0); NEUT # 3.3 K/uL (1.8-7.0); NEUT % 64.6 % (50.0-75.0); RBC 3.98 Mil/uL (4.40-5.90); RED CELL DISTRIBUTION WIDTH 15.9 % (11.5-14.5); WHITE BLOOD COUNT 5.1 K/uL (4.8-10.8)
[2018-06-25 08:03] LABS: ALB/GLOB RATIO 1.1 (1.0-2.1); ALBUMIN 3.5 g/dL (3.5-5.0); CALCIUM 9.1 mg/dl (8.6-10.4)
[2018-06-25] MEDS: Pantoprazole 40 mg EC Tab PO SCH (09:44)
[2018-06-25] MEDS: Ferric Sodium Gluconat Complex 62.5 mg/5 ml Vial IVPB SCH (09:45)
--- NOTE | 2018-06-25 14:16 | CP.PCM.PN ---
<Ericka Mello Y - Last Filed: 06/25/18 20:14> Subjective - Date & Time of Evaluation Date of Evaluation: 06/25/18 Time of Evaluation: 10:45 - Subjective Subjective: PGY-1 Medicine Progress note for Dr. Thomason Pt was seen and examined at bedside. No acute events noted overnight as per nursing. Patient has no new complaints. States he breathing is improving. He denies any chest pain, palpitations, dizziness and no longer endorses breathing difficulties. Objective - Vital Signs/Intake and Output Vital Signs (last 24 hours): Temp Pulse Resp BP Pulse Ox 97.7 F 97 H 20 110/70 93 L 06/25/18 07:35 06/25/18 07:35 06/25/18 07:35 06/25/18 09:44 06/25/18 07:35 Intake and Output: 06/25/18 06/25/18 06:59 18:59 Intake Total 720 Output Total 350 Balance 370 - Medications Medications: Current Medications Apixaban (Eliquis) 5 mg PO DAILY [facility] Last Admin: 06/25/18 09:44 Dose: 5 mg Aspirin (Aspirin Chewable) 81 mg PO DAILY [facility] Last Admin: 06/25/18 09:44 Dose: 81 mg Carvedilol (Coreg) 6.25 mg PO BID [facility] Last Admin: 06/25/18 09:44 Dose: 6.25 mg Carvedilol (Coreg) 3.125 mg PO BID [facility] Last Admin: 06/25/18 09:44 Dose: 3.125 mg Dextrose (Dextrose 50% Inj) 0 ml IV STAT PRN; Protocol PRN Reason: Hypoglycemia Protocol Dextrose (Glutose 15) 0 gm PO ONCE PRN; Protocol PRN Reason: Hypoglycemia Protocol Digoxin (Lanoxin) 0.25 mg PO DAILY@1800 [facility] Last Admin: 06/24/18 18:40 Dose: 0.25 mg Ferric Sodium Gluconate Complex (Ferrlecit) 125 mg IVPB DAILY [facility] Stop: 06/29/18 10:01 Last Admin: 06/25/18 09:45 Dose: 125 mg Finasteride (Proscar) 5 mg PO DAILY [facility] Last Admin: 06/25/18 09:44 Dose: 5 mg Furosemide (Lasix) 20 mg IVP BID [facility] Last Admin: 06/25/18 09:44 Dose: 20 mg Glucagon (Glucagen Diagnostic Kit) 0 mg IM STAT PRN; Protocol PRN Reason: Hypoglycemia Protocol Dextrose (Dextrose 5% In Water 1000 Ml) 1,000 mls @ 0 mls/hr IV .Q0M PRN; Protocol PRN Reason: Hypoglycemia Protocol Insulin Human Regular (Novolin R) 0 unit SC ACHS [facility]; Protocol Last Admin: 06/25/18 12:09 Dose: 4 units Mirtazapine (Remeron) 7.5 mg PO DAILY [facility] Last Admin: 06/25/18 09:44 Dose: 7.5 mg Pantoprazole Sodium (Protonix Ec Tab) 40 mg PO DAILY [facility] Last Admin: 06/25/18 09:44 Dose: 40 mg Rosuvastatin Calcium (Crestor) 40 mg PO HS [facility] Last Admin: 06/24/18 21:20 Dose: 40 mg Spironolactone (Aldactone) 25 mg PO BID [facility] Last Admin: 06/25/18 09:44 Dose: 25 mg Tamsulosin HCl (Flomax) 0.4 mg PO DAILY [facility] Last Admin: 06/25/18 09:44 Dose: 0.4 mg - Labs Labs: 06/25/18 07:26 06/25/18 07:26 PT 14.3 SECONDS (9.7-12.2) H 06/20/18 17:21 INR 1.3 06/20/18 17:21 APTT 34 SECONDS (21-34) 06/20/18 17:21 - Constitutional Appears: Non-toxic, No Acute Distress - Head Exam Head Exam: ATRAUMATIC, NORMOCEPHALIC - Eye Exam Eye Exam: EOMI. absent: Scleral icterus - ENT Exam ENT Exam: Mucous Membranes Moist - Neck Exam Neck Exam: Normal Inspection - Respiratory Exam Respiratory Exam: Decreased Breath Sounds. absent: Accessory Muscle Use Additional comments: decreased breath sounds throughout Crackles and distant breath sounds worst on LL lobe Percussion dull on L side - Cardiovascular Exam Cardiovascular Exam: Tachycardia, Irregular Rhythm, +S1, +S2. absent: JVD - GI/Abdominal Exam GI & Abdominal Exam: Soft. absent: Distended, Tenderness - Extremities Exam Extremities Exam: Normal Capillary Refill. absent: Pedal Edema - Neurological Exam Neurological Exam: Alert, Awake - Psychiatric Exam Psychiatric exam: Normal Affect, Normal Mood - Skin Skin Exam: Dry, Normal Color, Warm Assessment and Plan - Assessment and Plan (Free Text) Assessment: 67 y/o male with PMH of CAD with NSTEMI (11/25/17 at [facility]), s/p CABG at [place] (October 2017), DM2, CHF, non-compliance with outpatient medications who presented to the ED with complaints of chest pain and palpitations occurring since last night. Admitted to ICU for A-flutter with rapid HR, and [id number] systolic CHF. Downgraded to TELE 06/25. Plan: Atrial flutter - Cardiology consulted (Mario Alberto) - Monitor on telemetry - Increase Digoxin to 0.25 mg PO daily - Eliquis 5 mg PO daily - Coreg 9.375mg PO BID as per Dr. Llanes's recommendation Respiratory Distress Bilateral Pleural Effusion LL Lobe Consolidation - CT Chest (06/22): bilateral pleural effusion. partial consolidation of the lower lungs. - Consulted IR (Dr. Neves) for a possible thoracentesis due to fluid accumulation - Pulm Consulted (Dr. Ritter) Acute on Chronic Congestive heart failure - Echo: EF 34% - BNP 3080 - CXR on admission: bibasilar atelectasis/infiltrates and small pleural effusions, mild pulm venous congestion - CT chest: large bilateral pleural effusions - LE Doppler: no DVTs - Lasix 20mg IVP BID - Aldactone 25mg PO BID - Coreg 9.375mg PO BID Acute on Chronic Kidney disease - BUN/Cr 29/1.6 on admission and today was 28/1.5 - Nephrology consulted (Ollie)- urine studies pending Anemia - Hgb stable - Monitor H&H - Iron low (44), ferritin and TIBC wnl - Ferrlecit 125 mg IV daily x8 doses Coronary artery disease- s/p CABG - Trop negative x3 - Lipid panel wnl - ASA 81 mg PO daily - Crestor 40 mg PO QHS Benign prostatic hypertrophy - Proscar 5 mg PO daily - Flomax 0.4 mg PO daily Type 2 diabetes mellitus, uncontrolled - Accuchecks ACHS - Hypoglycemia protocol - ISS - Hgb A1c 8.5 Cirrhosis - Abdominal US: hepatic cirrhosis, moderate ascites Depression - Remeron 7.5 mg PO QHS Prophylactic Measures VTE: Eliquis GI: Protonix 40 mg PO daily Diet: HHD d/w Dr. Katelin Damon OMS-3 Ericka Mello PGY-1 <Ronal Thomason H - Last Filed: 06/26/18 07:44> Objective - Vital Signs/Intake and Output Vital Signs (last 24 hours): Temp Pulse Resp BP Pulse Ox 98.2 F 86 20 107/64 96 06/25/18 23:45 06/26/18 03:47 06/25/18 23:45 06/25/18 23:45 06/25/18 23:45 Intake and Output: 06/26/18 06/26/18 06:59 18:59 Intake Total 400 Balance 400 - Medications Medications: Current Medications Apixaban (Eliquis) 5 mg PO DAILY [facility] Last Admin: 06/25/18 09:44 Dose: 5 mg Aspirin (Aspirin Chewable) 81 mg PO DAILY [facility] Last Admin: 06/25/18 09:44 Dose: 81 mg Carvedilol (Coreg) 6.25 mg PO BID [facility] Last Admin: 06/25/18 18:35 Dose: 6.25 mg Carvedilol (Coreg) 3.125 mg PO BID [facility] Last Admin: 06/25/18 18:35 Dose: 3.125 mg Dextrose (Dextrose 50% Inj) 0 ml IV STAT PRN; Protocol PRN Reason: Hypoglycemia Protocol Dextrose (Glutose 15) 0 gm PO ONCE PRN; Protocol PRN Reason: Hypoglycemia Protocol Digoxin (Lanoxin) 0.25 mg PO DAILY@1800 [facility] Last Admin: 06/25/18 18:35 Dose: 0.25 mg Ferric Sodium Gluconate Complex (Ferrlecit) 125 mg IVPB DAILY [facility] Stop: 06/29/18 10:01 Last Admin: 06/25/18 09:45 Dose: 125 mg Finasteride (Proscar) 5 mg PO DAILY [facility] Last Admin: 06/25/18 09:44 Dose: 5 mg Furosemide (Lasix) 20 mg IVP BID [facility] Last Admin: 06/25/18 18:35 Dose: 20 mg Glucagon (Glucagen Diagnostic Kit) 0 mg IM STAT PRN; Protocol PRN Reason: Hypoglycemia Protocol Insulin Human Regular (Novolin R) 0 unit SC [facility]; Protocol Last Admin: 06/25/18 22:27 Dose: Not Given Mirtazapine (Remeron) 7.5 mg PO DAILY [facility] Last Admin: 06/25/18 09:44 Dose: 7.5 mg Pantoprazole Sodium (Protonix Ec Tab) 40 mg PO DAILY [facility] Last Admin: 06/25/18 09:44 Dose: 40 mg Rosuvastatin Calcium (Crestor) 40 mg PO HS [facility] Last Admin: 06/25/18 21:44 Dose: 40 mg Spironolactone (Aldactone) 25 mg PO BID [facility] Last Admin: 06/25/18 18:35 Dose: 25 mg Tamsulosin HCl (Flomax) 0.4 mg PO DAILY [facility] Last Admin: 06/25/18 09:44 Dose: 0.4 mg - Labs Labs: 06/25/18 07:26 06/25/18 07:26 PT 14.3 SECONDS (9.7-12.2) H 06/20/18 17:21 INR 1.3 06/20/18 17:21 APTT 34 SECONDS (21-34) 06/20/18 17:21 Attending/Attestation - Attestation I have personally seen and examined this patient.: Yes I have fully participated in the care of the patient.: Yes I have reviewed all pertinent clinical information, including history, physical exam and plan: Yes Notes (Text): Medical attending: Patient was seen and examined by me. Agree with the above note by the resident The patient reported that at rest his breathing was ok and that he was not short of breath at rest I took over care on 06/25 so I did not see him previously when he was admitted Nevertheless on the telemtry he was in the 110s and 120s consistently tachycardia/atrial fibrillation Reviewed the CT scan and it shows he has at least moderate pleural effusions bilaterally likley these are transudative in nature from his CHF Will need pulmonology eval and also possible if he needs a thoracentesis otherwise may need to increase rate control medication Ronal Thomason
--- NOTE | 2018-06-25 17:58 | CP.PCM.CON ---
History of Present Illness - History of Present Illness History of Present Illness: Patient is a 67 year old male with a history of CAD with NSTEMI (11/25/17 at [facility]), s/p CABG at [place] (October 2017), DMII, CHF, non-compliant with outpatient medications who presented to the ED 06/20 complaining of chest pa in and palpitations. PMH: CAD with NSTEMI (11/25/17 at [facility]), s/p CABG at [place] (October 2017), DMII, CHF, pleural effusion 8-9 mo. ago that was drained at [facility] Surg Hx: Pleural effusion drained at [facility] 8-9 mo. ago, CABG 7 mo. ago Social Hx: Denies history of alcohol, tobacco, drug use Allergies: NKDA Patient seen and examined at bedside. He endorses a cough. He denies fever, chills, chest pain. Afebrile. Physical Exam: General: Awake, alert and oriented; not in any distress Cardio: Regular rhythm and rate; +S1 +S2; no murmur Pulm: Clear to auscultation b/l Abd: Soft, non-distended CXR 06/21: B/l pleural effusions with inferred mild compressive atelectatic changes believed to be similar to prior studies. Chest CT 06/22: B/l large pleural effusions. Partial consolidation of lower lobes due to pleural effusions. Pulmonary congestion and foci of airspace consolidation at the lower lobes larger on the right may repeat also represent atelectasis or aspiration. Assessment and Plan Pleural Effusion - thoracentesis with fluid analysis Past Patient History - Tetanus Immunizations Tetanus Immunization: Unknown - Past Medical History & Family History Past Medical History?: Yes - Past Social History Smoking Status: Former Smoker - CARDIAC Hx Congestive Heart Failure: Yes - PULMONARY Hx Respiratory Disorders: No Other/Comment: pt denies - NEUROLOGICAL Hx Neurological Disorder: No - HEENT Hx HEENT Problems: No Other/Comment: wears glasses - RENAL Hx Chronic Kidney Disease: No - ENDOCRINE/METABOLIC Hx Diabetes Mellitus Type 2: Yes - HEMATOLOGICAL/ONCOLOGICAL Hx Blood Disorders: No - INTEGUMENTARY Hx Dermatological Problems: No - MUSCULOSKELETAL/RHEUMATOLOGICAL Hx Falls: No - GASTROINTESTINAL Hx Gastrointestinal Disorders: No - GENITOURINARY/GYNECOLOGICAL Hx Genitourinary Disorders: No - PSYCHIATRIC Hx Substance Use: No - SURGICAL HISTORY Hx Coronary Artery Bypass Graft: Yes - ANESTHESIA Hx Anesthesia: Yes Hx Anesthesia Reactions: No Hx Malignant Hyperthermia: No Has any member of the family had a problem w/ anesthesia?: No Meds Allergies/Adverse Reactions: Allergies Allergy/AdvReac Type Severity Reaction Status Date / Time No Known Allergies Allergy Verified 01/05/18 20:19 - Medications Medications: Current Medications Apixaban (Eliquis) 5 mg PO DAILY [facility] Last Admin: 06/25/18 09:44 Dose: 5 mg Aspirin (Aspirin Chewable) 81 mg PO DAILY [facility] Last Admin: 06/25/18 09:44 Dose: 81 mg Carvedilol (Coreg) 6.25 mg PO BID [facility] Last Admin: 06/25/18 09:44 Dose: 6.25 mg Carvedilol (Coreg) 3.125 mg PO BID [facility] Last Admin: 06/25/18 09:44 Dose: 3.125 mg Dextrose (Dextrose 50% Inj) 0 ml IV STAT PRN; Protocol PRN Reason: Hypoglycemia Protocol Dextrose (Glutose 15) 0 gm PO ONCE PRN; Protocol PRN Reason: Hypoglycemia Protocol Digoxin (Lanoxin) 0.25 mg PO DAILY@1800 [facility] Last Admin: 06/24/18 18:40 Dose: 0.25 mg Ferric Sodium Gluconate Complex (Ferrlecit) 125 mg IVPB DAILY [facility] Stop: 06/29/18 10:01 Last Admin: 06/25/18 09:45 Dose: 125 mg Finasteride (Proscar) 5 mg PO DAILY [facility] Last Admin: 06/25/18 09:44 Dose: 5 mg Furosemide (Lasix) 20 mg IVP BID [facility] Last Admin: 06/25/18 09:44 Dose: 20 mg Glucagon (Glucagen Diagnostic Kit) 0 mg IM STAT PRN; Protocol PRN Reason: Hypoglycemia Protocol Dextrose (Dextrose 5% In Water 1000 Ml) 1,000 mls @ 0 mls/hr IV .Q0M PRN; Protocol PRN Reason: Hypoglycemia Protocol Insulin Human Regular (Novolin R) 0 unit SC [facility]; Protocol Last Admin: 06/25/18 12:09 Dose: 4 units Mirtazapine (Remeron) 7.5 mg PO DAILY [facility] Last Admin: 06/25/18 09:44 Dose: 7.5 mg Pantoprazole Sodium (Protonix Ec Tab) 40 mg PO DAILY [facility] Last Admin: 06/25/18 09:44 Dose: 40 mg Rosuvastatin Calcium (Crestor) 40 mg PO HS [facility] Last Admin: 06/24/18 21:20 Dose: 40 mg Spironolactone (Aldactone) 25 mg PO BID [facility] Last Admin: 06/25/18 09:44 Dose: 25 mg Tamsulosin HCl (Flomax) 0.4 mg PO DAILY [facility] Last Admin: 06/25/18 09:44 Dose: 0.4 mg Results - Vital Signs Recent Vital Signs: Last Vital Signs Temp 97.5 F L 06/25/18 16:00 Pulse 92 H 06/25/18 16:00 Resp 20 06/25/18 16:00 BP 118/70 06/25/18 16:00 Pulse Ox 100 06/25/18 16:00 - Labs Result Diagrams: 06/25/18 07:26 06/25/18 07:26 Labs: Laboratory Results - last 24 hr 06/24/18 06/24/18 06/24/18 06:26 11:46 21:52 WBC RBC Hgb Hct MCV MCH MCHC RDW Plt Count MPV Neut % (Auto) Lymph % (Auto) [place] % (Auto) Eos % (Auto) Baso % (Auto) Neut # (Auto) Lymph # (Auto) [place] # (Auto) Eos # (Auto) Baso # (Auto) Sodium Potassium Chloride Carbon Dioxide Anion Gap BUN Creatinine Est GFR ( Amer) Est GFR (Non-Af Amer) POC Glucose (mg/dL) 164 H 175 H 203 H Random Glucose Hemoglobin A1c Calcium Phosphorus Magnesium Total Bilirubin AST ALT Alkaline Phosphatase Total Protein Albumin Globulin Albumin/Globulin Ratio 06/25/18 06/25/18 06/25/18 06:16 07:26 07:26 WBC 5.1 RBC 3.98 L Hgb 10.9 L Hct 33.6 L MCV 84.5 MCH 27.4 MCHC 32.5 L RDW 15.9 H Plt Count 141 MPV 9.6 Neut % (Auto) 64.6 Lymph % (Auto) 21.7 [place] % (Auto) 11.1 H Eos % (Auto) 2.0 Baso % (Auto) 0.6 Neut # (Auto) 3.3 Lymph # (Auto) 1.1 [place] # (Auto) 0.6 Eos # (Auto) 0.1 Baso # (Auto) 0.0 Sodium 138 Potassium 3.8 Chloride 96 L Carbon Dioxide 36 H Anion Gap 10 BUN 28 H Creatinine 1.5 Est GFR ( Amer) 57 Est GFR (Non-Af Amer) 47 POC Glucose (mg/dL) 117 H Random Glucose 112 H D Hemoglobin A1c Calcium 9.1 Phosphorus 2.8 Magnesium 1.7 Total Bilirubin 1.2 AST 27 ALT 18 L Alkaline Phosphatase 255 H Total Protein 6.8 Albumin 3.5 Globulin 3.3 Albumin/Globulin Ratio 1.1 06/25/18 06/25/18 06/25/18 09:09 11:25 17:02 WBC RBC Hgb Hct MCV MCH MCHC RDW Plt Count MPV Neut % (Auto) Lymph % (Auto) [place] % (Auto) Eos % (Auto) Baso % (Auto) Neut # (Auto) Lymph # (Auto) [place] # (Auto) Eos # (Auto) Baso # (Auto) Sodium Potassium Chloride Carbon Dioxide Anion Gap BUN Creatinine Est GFR ( Amer) Est GFR (Non-Af Amer) POC Glucose (mg/dL) 251 H 182 H Random Glucose Hemoglobin A1c 8.5 H Calcium Phosphorus Magnesium Total Bilirubin AST ALT Alkaline Phosphatase Total Protein Albumin Globulin Albumin/Globulin Ratio
[2018-06-25] MEDS: Digoxin 250 mcg (0.25 mg) Tab PO SCH (18:35)
--- NOTE | 2018-06-25 18:37 | CP.PCM.PN ---
Subjective - Date & Time of Evaluation Date of Evaluation: 06/25/18 Time of Evaluation: 13:00 - Subjective Subjective: 67 yo M w/ pmh of dm, CAD s/p CABG, afib, systolic CHF and CKD, admitted with acute decompensated CHF, afib/flutter w/ RVR; Patient denies any dyspnea; tolerating diet; increased urination; Objective - Vital Signs/Intake and Output Vital Signs (last 24 hours): Temp Pulse Resp BP Pulse Ox 97.5 F L 92 H 20 118/70 100 06/25/18 16:00 06/25/18 16:00 06/25/18 16:00 06/25/18 18:35 06/25/18 16:00 Intake and Output: 06/25/18 06/25/18 06:59 18:59 Intake Total 720 Output Total 350 Balance 370 - Medications Medications: Current Medications Apixaban (Eliquis) 5 mg PO DAILY [facility] Last Admin: 06/25/18 09:44 Dose: 5 mg Aspirin (Aspirin Chewable) 81 mg PO DAILY [facility] Last Admin: 06/25/18 09:44 Dose: 81 mg Carvedilol (Coreg) 6.25 mg PO BID [facility] Last Admin: 06/25/18 18:35 Dose: 6.25 mg Carvedilol (Coreg) 3.125 mg PO BID [facility] Last Admin: 06/25/18 18:35 Dose: 3.125 mg Dextrose (Dextrose 50% Inj) 0 ml IV STAT PRN; Protocol PRN Reason: Hypoglycemia Protocol Dextrose (Glutose 15) 0 gm PO ONCE PRN; Protocol PRN Reason: Hypoglycemia Protocol Digoxin (Lanoxin) 0.25 mg PO DAILY@1800 [facility] Last Admin: 06/25/18 18:35 Dose: 0.25 mg Ferric Sodium Gluconate Complex (Ferrlecit) 125 mg IVPB DAILY [facility] Stop: 06/29/18 10:01 Last Admin: 06/25/18 09:45 Dose: 125 mg Finasteride (Proscar) 5 mg PO DAILY [facility] Last Admin: 06/25/18 09:44 Dose: 5 mg Furosemide (Lasix) 20 mg IVP BID [facility] Last Admin: 06/25/18 18:35 Dose: 20 mg Glucagon (Glucagen Diagnostic Kit) 0 mg IM STAT PRN; Protocol PRN Reason: Hypoglycemia Protocol Dextrose (Dextrose 5% In Water 1000 Ml) 1,000 mls @ 0 mls/hr IV .Q0M PRN; Protocol PRN Reason: Hypoglycemia Protocol Insulin Human Regular (Novolin R) 0 unit SC ACHS [facility]; Protocol Last Admin: 06/25/18 12:09 Dose: 4 units Mirtazapine (Remeron) 7.5 mg PO DAILY [facility] Last Admin: 06/25/18 09:44 Dose: 7.5 mg Pantoprazole Sodium (Protonix Ec Tab) 40 mg PO DAILY [facility] Last Admin: 06/25/18 09:44 Dose: 40 mg Rosuvastatin Calcium (Crestor) 40 mg PO HS [facility] Last Admin: 06/24/18 21:20 Dose: 40 mg Spironolactone (Aldactone) 25 mg PO BID [facility] Last Admin: 06/25/18 18:35 Dose: 25 mg Tamsulosin HCl (Flomax) 0.4 mg PO DAILY [facility] Last Admin: 06/25/18 09:44 Dose: 0.4 mg - Labs Labs: 06/25/18 07:26 06/25/18 07:26 PT 14.3 SECONDS (9.7-12.2) H 06/20/18 17:21 INR 1.3 06/20/18 17:21 APTT 34 SECONDS (21-34) 06/20/18 17:21 - Constitutional Appears: Non-toxic, No Acute Distress - Eye Exam Eye Exam: Normal appearance. absent: Scleral icterus - ENT Exam ENT Exam: Mucous Membranes Moist - Respiratory Exam Respiratory Exam: absent: Respiratory Distress Additional comments: bronchial breath sounds on L; - Cardiovascular Exam Cardiovascular Exam: Irregular Rhythm, +S1, +S2 - GI/Abdominal Exam GI & Abdominal Exam: Soft. absent: Distended, Tenderness - Exam Exam: absent: Bladder Distension - Extremities Exam Additional comments: minimal lower leg edema; - Neurological Exam Neurological Exam: Alert, Awake - Psychiatric Exam Psychiatric exam: Normal Mood. absent: Agitated - Skin Skin Exam: Warm. absent: Cyanosis Assessment and Plan (1) CHF (congestive heart failure) Assessment & Plan: Acute decompensated systolic CHF; symptomatically improved but concern regarding bilateral pleural effusions, particularly on L; diuresis alone unlikely to decrease effusion; discussed with primary attending, agree with thoracentesis; -continue IV lasix 20 mg bid -continue aldactone 25 mg bid to offset metabolic alkalosis; Status: Acute (2) Pleural effusion Status: Acute (3) Metabolic alkalosis Status: Acute (4) CKD (chronic kidney disease) Assessment & Plan: Relatively stable, non-proteinuric kidney disease likely of cardiorenal etiology; can expect mild increase in serum creatinine with diuresis and PK blockade, should continue; can add IVAN inhibitor/ARB as BP tolerates; Status: Chronic (5) Anemia Assessment & Plan: Mild, with iron deficiency component, continuing IV iron loading; Status: Acute
--- NOTE | 2018-06-26 09:24 | PCM.SURG1 ---
Surgeon's Initial Post Op Note - Surgeon's Notes Surgeon: Neal Neves MD Personalization Specialist: NONE Type of Anesthesia: Local Pre-Operative Diagnosis: Pleural effusion, dyspnea Operative Findings: US shows moderate right and small left effusion Post-Operative Diagnosis: Pleural effusion, dyspnea Operation Performed: US guided paracentesis removal of 550 cc of straw colored fluid Specimen/Specimens Removed: 550 cc Estimated Blood Loss: EBL {In ML}: 0 Blood Products Given: N/A Drains Used: No Drains Post-Op Condition: Fair Date of Surgery/Procedure: 06/26/18 Time of Surgery/Procedure: 09:20
[2018-06-26] MEDS: (Novolin R) Insulin Human Regular 100 units/ml vial SC SCH ×4 (09:49→21:25)
[2018-06-26] MEDS: Pantoprazole 40 mg EC Tab PO SCH (09:54)
[2018-06-26] MEDS: Ferric Sodium Gluconat Complex 62.5 mg/5 ml Vial IVPB SCH (09:55)
--- NOTE | 2018-06-26 13:05 | RAD ---
Date of service: 06/26/2018 HISTORY: b/l pleural effusion, LL consolidation COMPARISON: Comparison made with prior study 06/21/[address] scan of the chest 06/22/2018.. Technique Chest PA and lateral FINDINGS: LUNGS: Interval right-sided thoracentesis with decreased size right-sided effusion. Small amount of pleural fluid and some atelectasis remains. Basilar opacification consistent with left-sided effusion with atelectasis and/or consolidation. No evidence of pneumothorax. Central pulmonary vasculature appears slightly congested PLEURA: As above. CARDIOVASCULAR: No aortic atherosclerotic calcification present. Heart size unchanged. Sternotomy wires, CABG clips and cardiac monitoring device also again noted. Central pulmonary vasculature appears slightly congested. OSSEOUS STRUCTURES: No significant abnormalities. VISUALIZED UPPER ABDOMEN: Normal. OTHER FINDINGS: None. IMPRESSION: Interval right-sided thoracentesis with decreased size right-sided effusion. Small amount of pleural fluid and some atelectasis remains. Basilar opacification consistent with left-sided effusion with atelectasis and/or consolidation. No evidence of pneumothorax. Central pulmonary vasculature appears slightly congested
--- NOTE | 2018-06-26 13:12 | US ---
PROCEDURE: Date of procedure: 06/26/2018 Procedure: 1. Ultrasound-guided Right thoracentesis, CPT 88809 Medications: 5cc 1% Lidocaine HISTORY: Right pleural effusion, shortness of breath TECHNIQUE: Following informed consent ,the Patients' right chest was marked. Procedure time-out was called, and the patient was placed in the sitting position and limited ultrasound showed a moderate right effusion. The patient's right back was prepped and draped in the usual sterile fashion. After the skin was anesthetized with lidocaine, a drainage catheter was advanced under ultrasound guidance into the pleural space. Ultrasound-guided thoracentesis was performed. A total of 550 cubic centimeters of straw-colored fluid removed without complication. A Xeroform dressing was applied. IMPRESSION: Ultrasound guided Right thoracentesis. There were no immediate complications.
[2018-06-26 14:13] LABS: BODY FLUID TYPE PLEURAL/THORACENTESI
--- NOTE | 2018-06-26 14:28 | CP.PCM.PN ---
Subjective - Date & Time of Evaluation Date of Evaluation: 06/26/18 Time of Evaluation: 10:00 - Subjective Subjective: Patient seen and examined Status post thoracentesis and 500 cc of straw-colored fluid removed Patient states breathing better Afebrile No chest pain Objective - Vital Signs/Intake and Output Vital Signs (last 24 hours): Temp Pulse Resp BP Pulse Ox 97.8 F 96 H 20 168/77 H 94 L 06/26/18 07:10 06/26/18 07:10 06/26/18 07:10 06/26/18 09:55 06/26/18 07:10 Intake and Output: 06/26/18 06/26/18 06:59 18:59 Intake Total 400 Balance 400 - Medications Medications: Current Medications Apixaban (Eliquis) 5 mg PO DAILY [facility] Last Admin: 06/26/18 09:53 Dose: 5 mg Aspirin (Aspirin Chewable) 81 mg PO DAILY [facility] Last Admin: 06/26/18 09:52 Dose: 81 mg Carvedilol (Coreg) 6.25 mg PO BID [facility] Last Admin: 06/26/18 09:52 Dose: 6.25 mg Carvedilol (Coreg) 3.125 mg PO BID [facility] Last Admin: 06/26/18 09:53 Dose: 3.125 mg Dextrose (Dextrose 50% Inj) 0 ml IV STAT PRN; Protocol PRN Reason: Hypoglycemia Protocol Dextrose (Glutose 15) 0 gm PO ONCE PRN; Protocol PRN Reason: Hypoglycemia Protocol Digoxin (Lanoxin) 0.25 mg PO DAILY@1800 [facility] Last Admin: 06/25/18 18:35 Dose: 0.25 mg Ferric Sodium Gluconate Complex (Ferrlecit) 125 mg IVPB DAILY [facility] Stop: 06/29/18 10:01 Last Admin: 06/26/18 09:55 Dose: 125 mg Finasteride (Proscar) 5 mg PO DAILY [facility] Last Admin: 06/26/18 09:52 Dose: 5 mg Furosemide (Lasix) 20 mg IVP BID [facility] Last Admin: 06/26/18 09:55 Dose: 20 mg Glucagon (Glucagen Diagnostic Kit) 0 mg IM STAT PRN; Protocol PRN Reason: Hypoglycemia Protocol Insulin Human Regular (Novolin R) 0 unit SC [facility]; Protocol Last Admin: 06/26/18 12:02 Dose: 6 units Mirtazapine (Remeron) 7.5 mg PO DAILY [facility] Last Admin: 06/26/18 10:05 Dose: 7.5 mg Pantoprazole Sodium (Protonix Ec Tab) 40 mg PO DAILY [facility] Last Admin: 06/26/18 09:54 Dose: 40 mg Rosuvastatin Calcium (Crestor) 40 mg PO HS [facility] Last Admin: 06/25/18 21:44 Dose: 40 mg Spironolactone (Aldactone) 25 mg PO BID [facility] Last Admin: 06/26/18 09:54 Dose: 25 mg Tamsulosin HCl (Flomax) 0.4 mg PO DAILY [facility] Last Admin: 06/26/18 09:54 Dose: 0.4 mg - Labs Labs: 06/25/18 07:26 06/25/18 07:26 PT 14.3 SECONDS (9.7-12.2) H 06/20/18 17:21 INR 1.3 06/20/18 17:21 APTT 34 SECONDS (21-34) 06/20/18 17:21 - Head Exam Head Exam: ATRAUMATIC, NORMOCEPHALIC - ENT Exam ENT Exam: Mucous Membranes Moist - Neck Exam Neck Exam: Normal Inspection - Respiratory Exam Respiratory Exam: Decreased Breath Sounds - Cardiovascular Exam Cardiovascular Exam: REGULAR RHYTHM - GI/Abdominal Exam GI & Abdominal Exam: Soft, Normal Bowel Sounds - Extremities Exam Extremities Exam: Pedal Edema Assessment and Plan (1) Pleural effusion Assessment & Plan: Bilateral pleural effusion most likely secondary to CHF Status post thoracentesis Fluid analysis Continue diuretics and present medicine Cardiology workup Status: Acute (2) CHF (congestive heart failure) Status: Acute
--- NOTE | 2018-06-26 14:37 | CP.PCM.PN ---
<Ericka Mello Y - Last Filed: 06/26/18 14:51> Subjective - Date & Time of Evaluation Date of Evaluation: 06/26/18 Time of Evaluation: 07:15 - Subjective Subjective: PGY-1 Medicine Progress note for Dr. Thomason Patient seen and examined at bedside. No acute events noted overnight as per nursing. Patient has no new complaints and that his breathing is fine. He denies any chest pain, palpitations, dizziness, abdominal pain. Objective - Vital Signs/Intake and Output Vital Signs (last 24 hours): Temp Pulse Resp BP Pulse Ox 97.8 F 96 H 20 168/77 H 94 L 06/26/18 07:10 06/26/18 07:10 06/26/18 07:10 06/26/18 09:55 06/26/18 07:10 Intake and Output: 06/26/18 06/26/18 06:59 18:59 Intake Total 400 Balance 400 - Medications Medications: Current Medications Apixaban (Eliquis) 5 mg PO DAILY [facility] Last Admin: 06/26/18 09:53 Dose: 5 mg Aspirin (Aspirin Chewable) 81 mg PO DAILY [facility] Last Admin: 06/26/18 09:52 Dose: 81 mg Carvedilol (Coreg) 6.25 mg PO BID [facility] Last Admin: 06/26/18 09:52 Dose: 6.25 mg Carvedilol (Coreg) 3.125 mg PO BID [facility] Last Admin: 06/26/18 09:53 Dose: 3.125 mg Dextrose (Dextrose 50% Inj) 0 ml IV STAT PRN; Protocol PRN Reason: Hypoglycemia Protocol Dextrose (Glutose 15) 0 gm PO ONCE PRN; Protocol PRN Reason: Hypoglycemia Protocol Digoxin (Lanoxin) 0.25 mg PO DAILY@1800 [facility] Last Admin: 06/25/18 18:35 Dose: 0.25 mg Ferric Sodium Gluconate Complex (Ferrlecit) 125 mg IVPB DAILY [facility] Stop: 06/29/18 10:01 Last Admin: 06/26/18 09:55 Dose: 125 mg Finasteride (Proscar) 5 mg PO DAILY [facility] Last Admin: 06/26/18 09:52 Dose: 5 mg Furosemide (Lasix) 20 mg IVP BID [facility] Last Admin: 06/26/18 09:55 Dose: 20 mg Glucagon (Glucagen Diagnostic Kit) 0 mg IM STAT PRN; Protocol PRN Reason: Hypoglycemia Protocol Insulin Human Regular (Novolin R) 0 unit SC [facility]; Protocol Last Admin: 06/26/18 12:02 Dose: 6 units Mirtazapine (Remeron) 7.5 mg PO DAILY [facility] Last Admin: 06/26/18 10:05 Dose: 7.5 mg Pantoprazole Sodium (Protonix Ec Tab) 40 mg PO DAILY [facility] Last Admin: 06/26/18 09:54 Dose: 40 mg Rosuvastatin Calcium (Crestor) 40 mg PO HS [facility] Last Admin: 06/25/18 21:44 Dose: 40 mg Spironolactone (Aldactone) 25 mg PO BID [facility] Last Admin: 06/26/18 09:54 Dose: 25 mg Tamsulosin HCl (Flomax) 0.4 mg PO DAILY [facility] Last Admin: 06/26/18 09:54 Dose: 0.4 mg - Labs Labs: 06/25/18 07:26 06/25/18 07:26 PT 14.3 SECONDS (9.7-12.2) H 06/20/18 17:21 INR 1.3 06/20/18 17:21 APTT 34 SECONDS (21-34) 06/20/18 17:21 - Constitutional Appears: Well, Non-toxic, No Acute Distress - Head Exam Head Exam: ATRAUMATIC, NORMOCEPHALIC - Eye Exam Eye Exam: EOMI, Normal appearance Pupil Exam: NORMAL ACCOMODATION, PERRL - ENT Exam ENT Exam: Mucous Membranes Moist, Normal Exam - Neck Exam Neck Exam: Normal Inspection - Respiratory Exam Respiratory Exam: Decreased Breath Sounds. absent: Accessory Muscle Use, Wheezes - Cardiovascular Exam Cardiovascular Exam: +S1, +S2. absent: JVD - GI/Abdominal Exam GI & Abdominal Exam: Soft, Normal Bowel Sounds. absent: Bruit, Tenderness, Diminished Bowel Sounds - Extremities Exam Extremities Exam: Normal Inspection. absent: Pedal Edema, Tenderness - Neurological Exam Neurological Exam: Alert, Awake, CN II-XII Intact - Psychiatric Exam Psychiatric exam: Normal Affect, Normal Mood - Skin Skin Exam: Normal Color, Warm Assessment and Plan - Assessment and Plan (Free Text) Assessment: 67 y/o male with PMH of CAD with NSTEMI (11/25/17 at [facility] s/p CABG at [facility] (October 2017), DM2, CHF, non-compliance with outpatient medications who presented to the ED with complaints of chest pain and palpitations occurring since last night. Admitted to ICU for A-flutter with rapid HR, and [id number] systolic CHF. Will go for thoracentesis later in the morning. Plan: Atrial flutter - Cardiology consulted (Mario Alberto) - Monitor on telemetry - Increase Digoxin to 0.25 mg PO daily - Eliquis 5 mg PO daily - Coreg 9.375mg PO BID as per Dr. Llanes's recommendation - If HR greater than 110bpm, increase Coreg dose Respiratory Distress Bilateral Pleural Effusion LL Lobe Consolidation - CT Chest (06/22): bilateral pleural effusion. partial consolidation of the lower lungs. - Consulted IR (Dr. Neves) for a thoracentesis later today - Pulm Consulted (Dr. Ritter) - Follow up on pleural fluid analysis Acute on Chronic Congestive heart failure - Echo: EF 34% - BNP 3080 - CXR on admission: bibasilar atelectasis/infiltrates and small pleural effusions, mild pulm venous congestion - CT chest: large bilateral pleural effusions - LE Doppler: no DVTs - Lasix 20mg IVP BID - Aldactone 25mg PO BID - Coreg 9.375mg PO BID Acute on Chronic Kidney disease - BUN/Cr 29/1.6 on admission and since then have been downtrending - Nephrology consulted (Priya)- urine studies pending Anemia - Hgb stable - Monitor H&H - Iron low (44), ferritin and TIBC wnl - Ferrlecit 125 mg IV daily x8 doses Coronary artery disease- s/p CABG - Trop negative x3 - Lipid panel wnl - ASA 81 mg PO daily - Crestor 40 mg PO QHS Benign prostatic hypertrophy - Proscar 5 mg PO daily - Flomax 0.4 mg PO daily Type 2 diabetes mellitus, uncontrolled - Accuchecks ACHS - Hypoglycemia protocol - ISS - Hgb A1c 8.5 Cirrhosis - Abdominal US: hepatic cirrhosis, moderate ascites Depression - Remeron 7.5 mg PO QHS Prophylactic Measures VTE: Eliquis GI: Protonix 40 mg PO daily Diet: HHD d/w Dr. Katelin Damon OMS-3 Ericka Mello PGY-1 <Ronal Thomason H - Last Filed: 06/26/18 18:35> Objective - Vital Signs/Intake and Output Vital Signs (last 24 hours): Temp Pulse Resp BP Pulse Ox 98.6 F 99 H 20 99/58 L 94 L 06/26/18 16:00 06/26/18 16:00 06/26/18 16:00 06/26/18 18:02 06/26/18 07:10 Intake and Output: 06/26/18 06/26/18 06:59 18:59 Intake Total 400 Balance 400 - Medications Medications: Current Medications Apixaban (Eliquis) 5 mg PO DAILY [facility] Last Admin: 06/26/18 09:53 Dose: 5 mg Aspirin (Aspirin Chewable) 81 mg PO DAILY [facility] Last Admin: 06/26/18 09:52 Dose: 81 mg Carvedilol (Coreg) 6.25 mg PO BID [facility] Last Admin: 06/26/18 18:01 Dose: 6.25 mg Carvedilol (Coreg) 3.125 mg PO BID [facility] Last Admin: 06/26/18 18:01 Dose: 3.125 mg Dextrose (Dextrose 50% Inj) 0 ml IV STAT PRN; Protocol PRN Reason: Hypoglycemia Protocol Dextrose (Glutose 15) 0 gm PO ONCE PRN; Protocol PRN Reason: Hypoglycemia Protocol Digoxin (Lanoxin) 0.25 mg PO DAILY@1800 [facility] Last Admin: 06/26/18 18:02 Dose: 0.25 mg Ferric Sodium Gluconate Complex (Ferrlecit) 125 mg IVPB DAILY [facility] Stop: 06/29/18 10:01 Last Admin: 06/26/18 09:55 Dose: 125 mg Finasteride (Proscar) 5 mg PO DAILY [facility] Last Admin: 06/26/18 09:52 Dose: 5 mg Furosemide (Lasix) 20 mg IVP BID [facility] Last Admin: 06/26/18 18:02 Dose: Not Given Glucagon (Glucagen Diagnostic Kit) 0 mg IM STAT PRN; Protocol PRN Reason: Hypoglycemia Protocol Insulin Human Regular (Novolin R) 0 unit SC [facility]; Protocol Last Admin: 06/26/18 18:02 Dose: Not Given Mirtazapine (Remeron) 7.5 mg PO DAILY [facility] Last Admin: 06/26/18 10:05 Dose: 7.5 mg Pantoprazole Sodium (Protonix Ec Tab) 40 mg PO DAILY [facility] Last Admin: 06/26/18 09:54 Dose: 40 mg Rosuvastatin Calcium (Crestor) 40 mg PO HS [facility] Last Admin: 06/25/18 21:44 Dose: 40 mg Spironolactone (Aldactone) 25 mg PO BID [facility] Last Admin: 06/26/18 18:01 Dose: 25 mg Tamsulosin HCl (Flomax) 0.4 mg PO DAILY [facility] Last Admin: 06/26/18 09:54 Dose: 0.4 mg - Labs Labs: 06/25/18 07:26 06/25/18 07:26 PT 14.3 SECONDS (9.7-12.2) H 06/20/18 17:21 INR 1.3 06/20/18 17:21 APTT 34 SECONDS (21-34) 06/20/18 17:21 Attending/Attestation - Attestation I have personally seen and examined this patient.: Yes I have fully participated in the care of the patient.: Yes I have reviewed all pertinent clinical information, including history, physical exam and plan: Yes Notes (Text): 06/26/18 18:33 Medical attending: Patient was seen and examined by me. Reviewed the above note by the resident The patient was not in any acute distress when we came and saw. He had just r eturned from the thoracentesis and reportedly 550 cc was removed. We are pending the analysis of the thoracentesis fluid Otherwise he reports feeling well. The HR decreased on telemetry to low 100s and high 90s now Ronal Thomason
[2018-06-26 15:19] LABS: BF GROSS APPEARANCE SL CLOUDY (CLEAR)
[2018-06-26 15:20] LABS: BODY FLUID MONO/MACROPHAGE 2 % (0-0); BODY FLUID TOTAL COUNT 100 (0-0)
--- NOTE | 2018-06-26 15:25 | CP.PCM.PN ---
<Gilbert Salcedo - Last Filed: 06/26/18 23:01> Subjective - Date & Time of Evaluation Date of Evaluation: 06/26/18 Time of Evaluation: 15:25 - Subjective Subjective: Nephrology Progress Note (Dr. Powers's Service): Patient seen and assessed at bedside. No acute events overnight. Patient just returned from right sided thoracocentesis and denies any complaints. Further 12 point ROS reviewed and unremarkable at this time. Objective - Vital Signs/Intake and Output Vital Signs (last 24 hours): Temp Pulse Resp BP Pulse Ox 97.8 F 96 H 20 168/77 H 94 L 06/26/18 07:10 06/26/18 07:10 06/26/18 07:10 06/26/18 09:55 06/26/18 07:10 Intake and Output: 06/26/18 06/26/18 06:59 18:59 Intake Total 400 Balance 400 - Medications Medications: Current Medications Apixaban (Eliquis) 5 mg PO DAILY [facility] Last Admin: 06/26/18 09:53 Dose: 5 mg Aspirin (Aspirin Chewable) 81 mg PO DAILY [facility] Last Admin: 06/26/18 09:52 Dose: 81 mg Carvedilol (Coreg) 6.25 mg PO BID [facility] Last Admin: 06/26/18 09:52 Dose: 6.25 mg Carvedilol (Coreg) 3.125 mg PO BID [facility] Last Admin: 06/26/18 09:53 Dose: 3.125 mg Dextrose (Dextrose 50% Inj) 0 ml IV STAT PRN; Protocol PRN Reason: Hypoglycemia Protocol Dextrose (Glutose 15) 0 gm PO ONCE PRN; Protocol PRN Reason: Hypoglycemia Protocol Digoxin (Lanoxin) 0.25 mg PO DAILY@1800 [facility] Last Admin: 06/25/18 18:35 Dose: 0.25 mg Ferric Sodium Gluconate Complex (Ferrlecit) 125 mg IVPB DAILY [facility] Stop: 06/29/18 10:01 Last Admin: 06/26/18 09:55 Dose: 125 mg Finasteride (Proscar) 5 mg PO DAILY [facility] Last Admin: 06/26/18 09:52 Dose: 5 mg Furosemide (Lasix) 20 mg IVP BID [facility] Last Admin: 06/26/18 09:55 Dose: 20 mg Glucagon (Glucagen Diagnostic Kit) 0 mg IM STAT PRN; Protocol PRN Reason: Hypoglycemia Protocol Insulin Human Regular (Novolin R) 0 unit SC [facility]; Protocol Last Admin: 06/26/18 12:02 Dose: 6 units Mirtazapine (Remeron) 7.5 mg PO DAILY [facility] Last Admin: 06/26/18 10:05 Dose: 7.5 mg Pantoprazole Sodium (Protonix Ec Tab) 40 mg PO DAILY [facility] Last Admin: 06/26/18 09:54 Dose: 40 mg Rosuvastatin Calcium (Crestor) 40 mg PO HS [facility] Last Admin: 06/25/18 21:44 Dose: 40 mg Spironolactone (Aldactone) 25 mg PO BID [facility] Last Admin: 06/26/18 09:54 Dose: 25 mg Tamsulosin HCl (Flomax) 0.4 mg PO DAILY [facility] Last Admin: 06/26/18 09:54 Dose: 0.4 mg - Labs Labs: 06/25/18 07:26 06/25/18 07:26 PT 14.3 SECONDS (9.7-12.2) H 06/20/18 17:21 INR 1.3 06/20/18 17:21 APTT 34 SECONDS (21-34) 06/20/18 17:21 - Constitutional Appears: Non-toxic, No Acute Distress - Head Exam Head Exam: ATRAUMATIC, NORMOCEPHALIC - Eye Exam Eye Exam: EOMI, Normal appearance - ENT Exam ENT Exam: Mucous Membranes Moist - Neck Exam Neck Exam: Full ROM - Respiratory Exam Respiratory Exam: Clear to Ausculation Bilateral, NORMAL BREATHING PATTERN - Cardiovascular Exam Cardiovascular Exam: Irregular Rhythm, +S1, +S2 - Extremities Exam Extremities Exam: Pedal Edema (Trace pitting edema bilaterally to lower extremities) - Neurological Exam Neurological Exam: Alert, Awake, Oriented x3 - Psychiatric Exam Psychiatric exam: Normal Affect, Normal Mood - Skin Skin Exam: Dry, Intact, Warm Assessment and Plan - Assessment and Plan (Free Text) Assessment: 67 year old male with a past medical history significant for DM2, CAD s/p CABG, atrial fibrillation, systolic CHF and CKD who presented with ADHF and atrial fibrillation with RVR. Plan: 1. ADHF (Systolic) -Symptomatically improved -s/p thoracocentesis of right sided pleural effusion; Awaiting analytic studies on pleural fluid -Continue Lasix -Continue Aldactone 2. Pleural Effusion -s/p thoracocentesis of right sided pleural effusion; Awaiting analytic studies on pleural fluid 3. CKD -Currently stable -Likely cardiorenal in etiology -Can add ACEI/ARB as blood pressure tolerates 4. Anemia in CKD -Mild -Continue IV iron loading 5. Metabolic Alkalosis -Stable -Continue to monitor Patient seen and case discussed with attending, Dr. Powers. Gilbert Salcedo PGY2 <Maynor Powers - Last Filed: 06/27/18 08:30> Objective - Vital Signs/Intake and Output Vital Signs (last 24 hours): Temp Pulse Resp BP Pulse Ox 98.0 F 88 20 102/68 95 06/27/18 07:00 06/27/18 07:00 06/27/18 07:00 06/27/18 07:00 06/27/18 07:00 - Medications Medications: Current Medications Apixaban (Eliquis) 5 mg PO DAILY [facility] Last Admin: 06/26/18 09:53 Dose: 5 mg Aspirin (Aspirin Chewable) 81 mg PO DAILY [facility] Last Admin: 06/26/18 09:52 Dose: 81 mg Carvedilol (Coreg) 6.25 mg PO BID [facility] Last Admin: 06/26/18 18:01 Dose: 6.25 mg Carvedilol (Coreg) 3.125 mg PO BID [facility] Last Admin: 06/26/18 18:01 Dose: 3.125 mg Dextrose (Dextrose 50% Inj) 0 ml IV STAT PRN; Protocol PRN Reason: Hypoglycemia Protocol Dextrose (Glutose 15) 0 gm PO ONCE PRN; Protocol PRN Reason: Hypoglycemia Protocol Digoxin (Lanoxin) 0.25 mg PO DAILY@1800 [facility] Last Admin: 06/26/18 18:02 Dose: 0.25 mg Ferric Sodium Gluconate Complex (Ferrlecit) 125 mg IVPB DAILY [facility] Stop: 06/29/18 10:01 Last Admin: 06/26/18 09:55 Dose: 125 mg Finasteride (Proscar) 5 mg PO DAILY [facility] Last Admin: 06/26/18 09:52 Dose: 5 mg Furosemide (Lasix) 40 mg PO BID [facility] Glucagon (Glucagen Diagnostic Kit) 0 mg IM STAT PRN; Protocol PRN Reason: Hypoglycemia Protocol Insulin Human Regular (Novolin R) 0 unit SC [facility]; Protocol Last Admin: 06/27/18 08:21 Dose: Not Given Mirtazapine (Remeron) 7.5 mg PO DAILY [facility] Last Admin: 06/26/18 10:05 Dose: 7.5 mg Pantoprazole Sodium (Protonix Ec Tab) 40 mg PO DAILY [facility] Last Admin: 06/26/18 09:54 Dose: 40 mg Rosuvastatin Calcium (Crestor) 40 mg PO HS [facility] Last Admin: 06/25/18 21:44 Dose: 40 mg Spironolactone (Aldactone) 25 mg PO BID [facility] Last Admin: 06/26/18 18:01 Dose: 25 mg Tamsulosin HCl (Flomax) 0.4 mg PO DAILY [facility] Last Admin: 06/26/18 09:54 Dose: 0.4 mg - Labs Labs: 06/27/18 08:05 06/25/18 07:26 PT 14.3 SECONDS (9.7-12.2) H 06/20/18 17:21 INR 1.3 06/20/18 17:21 APTT 34 SECONDS (21-34) 06/20/18 17:21 Assessment and Plan (1) CHF (congestive heart failure) Status: Acute (2) Pleural effusion Status: Acute (3) Metabolic alkalosis Status: Acute (4) CKD (chronic kidney disease) Status: Chronic (5) Anemia Status: Acute Attending/Attestation - Attestation I have personally seen and examined this patient.: Yes I have fully participated in the care of the patient.: Yes I have reviewed all pertinent clinical information, including history, physical exam and plan: Yes Notes (Text): Patient seen and examined; I agree with the resident's note as above with the following additions/edits: Patient with CAD s/p CABG, CHF w/ systolic dysfunction, admitted with decompensated CHF and afib/flutter w/ RVR in the setting of medication non- adherence; s/p R sided thoracentesis with 550 cc drained; awaiting fluid analyses; no peripheral edema on exam, still with decreased breath sounds on L; renal function stable despite being on IV lasix and aldactone, will switch to PO lasix 40 mg bid tomorrow, continue aldactone to offset alkalosis and for PK blockade in the setting of systolic CHF;
[2018-06-26] MEDS: Digoxin 250 mcg (0.25 mg) Tab PO SCH (18:02)
--- NOTE | 2018-06-27 06:59 | CP.PCM.PN ---
<Ericka Mello Y - Last Filed: 06/27/18 15:06> Subjective - Date & Time of Evaluation Date of Evaluation: 06/27/18 Time of Evaluation: 09:15 - Subjective Subjective: PGY-1 Medicine Progress note for Dr. Thomason Patient was seen and examined today at bedside in no acute distress. Nurse reports no overnight events. Patient has no new complaints and is eager to go home. He is breathing more easily since the thoracentesis yesterday, however, is still having some shortness of breath, especially on exertion such as walking to the bathroom. Denies chest pain, palpitations, chest tightness, abdominal pain, difficulty urinating or having a BM, walking. Objective - Vital Signs/Intake and Output Vital Signs (last 24 hours): Temp Pulse Resp BP Pulse Ox 97.6 F 80 20 104/72 99 06/26/18 23:40 06/27/18 04:00 06/26/18 23:40 06/26/18 23:40 06/26/18 23:40 - Medications Medications: Current Medications Apixaban (Eliquis) 5 mg PO DAILY [facility] Last Admin: 06/26/18 09:53 Dose: 5 mg Aspirin (Aspirin Chewable) 81 mg PO DAILY [facility] Last Admin: 06/26/18 09:52 Dose: 81 mg Carvedilol (Coreg) 6.25 mg PO BID [facility] Last Admin: 06/26/18 18:01 Dose: 6.25 mg Carvedilol (Coreg) 3.125 mg PO BID [facility] Last Admin: 06/26/18 18:01 Dose: 3.125 mg Dextrose (Dextrose 50% Inj) 0 ml IV STAT PRN; Protocol PRN Reason: Hypoglycemia Protocol Dextrose (Glutose 15) 0 gm PO ONCE PRN; Protocol PRN Reason: Hypoglycemia Protocol Digoxin (Lanoxin) 0.25 mg PO DAILY@1800 [facility] Last Admin: 06/26/18 18:02 Dose: 0.25 mg Ferric Sodium Gluconate Complex (Ferrlecit) 125 mg IVPB DAILY [facility] Stop: 06/29/18 10:01 Last Admin: 06/26/18 09:55 Dose: 125 mg Finasteride (Proscar) 5 mg PO DAILY [facility] Last Admin: 06/26/18 09:52 Dose: 5 mg Furosemide (Lasix) 20 mg IVP BID [facility] Last Admin: 06/26/18 18:02 Dose: Not Given Glucagon (Glucagen Diagnostic Kit) 0 mg IM STAT PRN; Protocol PRN Reason: Hypoglycemia Protocol Insulin Human Regular (Novolin R) 0 unit SC ACHS [facility]; Protocol Last Admin: 06/26/18 21:25 Dose: Not Given Mirtazapine (Remeron) 7.5 mg PO DAILY [facility] Last Admin: 06/26/18 10:05 Dose: 7.5 mg Pantoprazole Sodium (Protonix Ec Tab) 40 mg PO DAILY [facility] Last Admin: 06/26/18 09:54 Dose: 40 mg Rosuvastatin Calcium (Crestor) 40 mg PO HS [facility] Last Admin: 06/25/18 21:44 Dose: 40 mg Spironolactone (Aldactone) 25 mg PO BID [facility] Last Admin: 06/26/18 18:01 Dose: 25 mg Tamsulosin HCl (Flomax) 0.4 mg PO DAILY [facility] Last Admin: 06/26/18 09:54 Dose: 0.4 mg - Labs Labs: 06/25/18 07:26 06/25/18 07:26 PT 14.3 SECONDS (9.7-12.2) H 06/20/18 17:21 INR 1.3 06/20/18 17:21 APTT 34 SECONDS (21-34) 06/20/18 17:21 - Constitutional Appears: Well, No Acute Distress, Chronically Ill - Head Exam Head Exam: ATRAUMATIC, NORMOCEPHALIC - Eye Exam Eye Exam: EOMI, Normal appearance, PERRL - ENT Exam ENT Exam: Mucous Membranes Moist, Normal Exam - Neck Exam Neck Exam: Normal Inspection - Respiratory Exam Respiratory Exam: Decreased Breath Sounds. absent: Accessory Muscle Use, Rales, Wheezes - Cardiovascular Exam Cardiovascular Exam: Tachycardia, Irregular Rhythm, +S1, +S2. absent: JVD Additional comments: Aflutter/Afib - GI/Abdominal Exam GI & Abdominal Exam: Soft, Normal Bowel Sounds. absent: Guarding, Tenderness, Rebound - Extremities Exam Extremities Exam: Normal Capillary Refill - Neurological Exam Neurological Exam: Alert, Awake, Normal Gait, Oriented x3 - Psychiatric Exam Psychiatric exam: Normal Affect, Normal Mood - Skin Skin Exam: Dry, Intact, Normal Color, Warm Additional comments: R thoracenteisis site covered with gauze and tape. No leakage, tenderness to palpation. Assessment and Plan - Assessment and Plan (Free Text) Assessment: 67yo M PMH NSTEMI 2/2 CAD s/p CABG, CHF, DM2, medication noncompliance admitted for tachycardic atrial flutter and respiratory distress 2/2 bilateral pleural effusions and LL lobe consolidations s/p R thoracentesis on 06/26. Plan: Atrial flutter - Cardiology consulted (Mario Alberto) - Monitor on telemetry - Increase Digoxin to 0.25 mg PO daily - Eliquis 5 mg PO daily - Coreg 9.375mg PO BID as per Dr. Llanes's recommendation - If HR greater than 110bpm, increase Coreg dose - HR has been stable in high 90s with few incidents of 120. Avoiding hypotension, will not increase Coreg dose at this time. Respiratory Distress Bilateral Pleural Effusion LL Lobe Consolidation - CT Chest (06/22): bilateral pleural effusion. partial consolidation of the lower lungs. - s/p R thoracentesis 06/26 - fluid analysis shows 550cc cloudy fluid with elevated WBC, RBC, Cell count, Neuts, Lymphs. - f/u Fluid Cx: negative at 24 hours - Consulted IR (Dr. Neves) for a thoracentesis later today - Pulm Consulted (Dr. Ritter) - Avelox 400mg IVPB daily. May discontinue on discharge if culture is negative Acute on Chronic Congestive heart failure - Echo: EF 34% - BNP 3080 - CXR on admission: bibasilar atelectasis/infiltrates and small pleural effusions, mild pulm venous congestion - CT chest: large bilateral pleural effusions - LE Doppler: no DVTs - Lasix 20mg IVP BID - Aldactone 25mg PO BID - Coreg 9.375mg PO BID Acute on Chronic Kidney disease - BUN/Cr 29/1.6 on admission and since then have been downtrending - [place] [place]emia - Hgb stable - Monitor H&H - Iron low (44), ferritin and TIBC wnl - Ferrlecit 125 mg IV daily x8 doses Coronary artery disease- s/p CABG - Trop negative x3 - Lipid panel wnl - ASA 81 mg PO daily - Crestor 40 mg PO QHS Benign prostatic hypertrophy - Proscar 5 mg PO daily - Flomax 0.4 mg PO daily Type 2 diabetes mellitus, uncontrolled - Accuchecks ACHS - Hypoglycemia protocol - ISS - Hgb A1c 8.5 Cirrhosis - Abdominal US: hepatic cirrhosis, moderate ascites Depression - Remeron 7.5 mg PO QHS Prophylactic Measures VTE: Eliquis 5mg po daily GI: Protonix 40 mg PO daily Diet: HHD Dispo: Discharge tomorrow if patient continues to improve and culture is negative. d/w Dr. Kateiln Mello PGY-1 <Ronal Thomason H - Last Filed: 06/27/18 18:19> Objective - Vital Signs/Intake and Output Vital Signs (last 24 hours): Temp Pulse Resp BP Pulse Ox 98.3 F 87 20 96/64 L 94 L 06/27/18 15:36 06/27/18 15:36 06/27/18 15:36 06/27/18 17:45 06/27/18 15:36 - Medications Medications: Current Medications Apixaban (Eliquis) 5 mg PO DAILY [facility] Last Admin: 06/27/18 11:06 Dose: 5 mg Aspirin (Aspirin Chewable) 81 mg PO DAILY [facility] Last Admin: 06/27/18 11:06 Dose: 81 mg Carvedilol (Coreg) 6.25 mg PO BID [facility] Last Admin: 06/27/18 17:45 Dose: 6.25 mg Carvedilol (Coreg) 3.125 mg PO BID [facility] Last Admin: 06/27/18 17:44 Dose: 3.125 mg Dextrose (Dextrose 50% Inj) 0 ml IV STAT PRN; Protocol PRN Reason: Hypoglycemia Protocol Dextrose (Glutose 15) 0 gm PO ONCE PRN; Protocol PRN Reason: Hypoglycemia Protocol Digoxin (Lanoxin) 0.25 mg PO DAILY@1800 [facility] Last Admin: 06/27/18 17:46 Dose: 0.25 mg Ferric Sodium Gluconate Complex (Ferrlecit) 125 mg IVPB DAILY [facility] Stop: 06/29/18 10:01 Last Admin: 06/27/18 11:07 Dose: 125 mg Finasteride (Proscar) 5 mg PO DAILY [facility] Last Admin: 06/27/18 11:07 Dose: 5 mg Furosemide (Lasix) 40 mg PO BID [facility] Last Admin: 06/27/18 17:45 Dose: 40 mg Glucagon (Glucagen Diagnostic Kit) 0 mg IM STAT PRN; Protocol PRN Reason: Hypoglycemia Protocol Moxifloxacin HCl (Avelox Iv 400mg/250ml Ns) 400 mg in 250 mls @ 167 mls/hr IVPB Q24H [facility]; Protocol Last Admin: 06/27/18 14:41 Dose: 167 mls/hr Insulin Human Regular (Novolin R) 0 unit SC ACHS [facility]; Protocol Last Admin: 06/27/18 17:46 Dose: Not Given Mirtazapine (Remeron) 7.5 mg PO DAILY [facility] Last Admin: 06/27/18 13:22 Dose: 7.5 mg Pantoprazole Sodium (Protonix Ec Tab) 40 mg PO DAILY [facility] Last Admin: 06/27/18 11:07 Dose: 40 mg Rosuvastatin Calcium (Crestor) 40 mg PO HS [facility] Last Admin: 06/25/18 21:44 Dose: 40 mg Spironolactone (Aldactone) 25 mg PO BID [facility] Last Admin: 06/27/18 17:47 Dose: Not Given Tamsulosin HCl (Flomax) 0.4 mg PO DAILY [facility] Last Admin: 06/27/18 11:06 Dose: 0.4 mg - Labs Labs: 06/27/18 08:05 06/27/18 08:05 PT 14.3 SECONDS (9.7-12.2) H 06/20/18 17:21 INR 1.3 06/20/18 17:21 APTT 34 SECONDS (21-34) 06/20/18 17:21 Attending/Attestation - Attestation I have personally seen and examined this patient.: Yes I have fully participated in the care of the patient.: Yes I have reviewed all pertinent clinical information, including history, physical exam and plan: Yes Notes (Text): 06/27/18 18:18 Medical attending: Patient was seen and examined by me. Agree with the above note by the resident The patient was not in any acute distress when we came and saw him We had him walk in the hallways with us and he did so very well without assistance He did not have C/P did not have SOB and did not have palpitations. We are still pending on further analysis of the pleural fluid Because of the high number of WBC and Neutrophils that returned in the pleural fluid we are covierng patient with IV avelox for the time being. He looks well and hopefully can be discharged soon thank you Ronal Thomason
[2018-06-27 08:18] LABS: BASO % 0.7 % (0.0-2.0); EOS # 0.1 K/uL (0.0-0.7); EOS % 2.7 % (0.0-4.0); LYMPH # 1.1 K/uL (1.0-4.3); LYMPH % 20.4 % (20.0-40.0); MEAN CELL VOLUME 84.9 fL (80.0-94.0); MEAN CORPUSCULAR HEMOGLOBIN 27.6 pg (27.0-31.0); MEAN CORPUSCULAR HGB CONC 32.5 g/dL (33.0-37.0); MEAN PLATELET VOLUME 10.4 fL (7.2-11.7); MONO # 0.5 K/uL (0.0-0.8); MONO % 9.4 % (0.0-10.0); NEUT # 3.5 K/uL (1.8-7.0); NEUT % 66.8 % (50.0-75.0); RBC 3.99 Mil/uL (4.40-5.90); RED CELL DISTRIBUTION WIDTH 15.9 % (11.5-14.5); WHITE BLOOD COUNT 5.2 K/uL (4.8-10.8)
[2018-06-27] MEDS: (Novolin R) Insulin Human Regular 100 units/ml vial SC SCH ×3 (08:21→17:46)
[2018-06-27 08:36] LABS: ALB/GLOB RATIO 1.2 (1.0-2.1); ALBUMIN 3.8 g/dL (3.5-5.0); ALT/SGPT 14 U/L (21-72); AST/SGOT 27 U/L (17-59); BLOOD UREA NITROGEN 28 mg/dL (9-20); CALCIUM 9.3 mg/dl (8.6-10.4); GFR NON-AFRICAN AMERICAN 51
--- NOTE | 2018-06-27 08:46 | CP.PCM.PN ---
<Mercy Zuniga - Last Filed: 06/27/18 20:02> Subjective - Date & Time of Evaluation Date of Evaluation: 06/27/18 Time of Evaluation: 08:45 - Subjective Subjective: Progress note for Dr. Powers Patient was seen and examined at bedside in no acute distress. Patient states he feels well and has no complaints today. He says his breathing has improved and he doesnt feel short of breath. Patient denies chest pain, palpitations, dyspnea, abdominal pain, n/v, fevers, dysuria, diarrhea, constipation. Objective - Vital Signs/Intake and Output Vital Signs (last 24 hours): Temp Pulse Resp BP Pulse Ox 98.0 F 88 20 102/68 95 06/27/18 07:00 06/27/18 07:00 06/27/18 07:00 06/27/18 07:00 06/27/18 07:00 - Medications Medications: Current Medications Apixaban (Eliquis) 5 mg PO DAILY [facility] Last Admin: 06/26/18 09:53 Dose: 5 mg Aspirin (Aspirin Chewable) 81 mg PO DAILY [facility] Last Admin: 06/26/18 09:52 Dose: 81 mg Carvedilol (Coreg) 6.25 mg PO BID [facility] Last Admin: 06/26/18 18:01 Dose: 6.25 mg Carvedilol (Coreg) 3.125 mg PO BID [facility] Last Admin: 06/26/18 18:01 Dose: 3.125 mg Dextrose (Dextrose 50% Inj) 0 ml IV STAT PRN; Protocol PRN Reason: Hypoglycemia Protocol Dextrose (Glutose 15) 0 gm PO ONCE PRN; Protocol PRN Reason: Hypoglycemia Protocol Digoxin (Lanoxin) 0.25 mg PO DAILY@1800 [facility] Last Admin: 06/26/18 18:02 Dose: 0.25 mg Ferric Sodium Gluconate Complex (Ferrlecit) 125 mg IVPB DAILY [facility] Stop: 06/29/18 10:01 Last Admin: 06/26/18 09:55 Dose: 125 mg Finasteride (Proscar) 5 mg PO DAILY [facility] Last Admin: 06/26/18 09:52 Dose: 5 mg Furosemide (Lasix) 40 mg PO BID [facility] Glucagon (Glucagen Diagnostic Kit) 0 mg IM STAT PRN; Protocol PRN Reason: Hypoglycemia Protocol Insulin Human Regular (Novolin R) 0 unit SC [facility]; Protocol Last Admin: 06/27/18 08:21 Dose: Not Given Mirtazapine (Remeron) 7.5 mg PO DAILY [facility] Last Admin: 06/26/18 10:05 Dose: 7.5 mg Pantoprazole Sodium (Protonix Ec Tab) 40 mg PO DAILY [facility] Last Admin: 06/26/18 09:54 Dose: 40 mg Rosuvastatin Calcium (Crestor) 40 mg PO HS [facility] Last Admin: 06/25/18 21:44 Dose: 40 mg Spironolactone (Aldactone) 25 mg PO BID [facility] Last Admin: 06/26/18 18:01 Dose: 25 mg Tamsulosin HCl (Flomax) 0.4 mg PO DAILY [facility] Last Admin: 06/26/18 09:54 Dose: 0.4 mg - Labs Labs: 06/27/18 08:05 06/27/18 08:05 PT 14.3 SECONDS (9.7-12.2) H 06/20/18 17:21 INR 1.3 06/20/18 17:21 APTT 34 SECONDS (21-34) 06/20/18 17:21 - Additional Findings Additional findings: - Constitutional Appears: No Acute Distress - Head Exam Head Exam: ATRAUMATIC, NORMAL INSPECTION - Eye Exam Eye Exam: EOMI, Normal appearance - ENT Exam ENT Exam: Mucous Membranes Moist - Respiratory Exam Respiratory Exam: right sided dressing s/p thoracentesis dry, clean, intact; air movement diminished in Left lower lung, NORMAL BREATHING PATTERN. absent: Rhonchi, Wheezes - Cardiovascular Exam Cardiovascular Exam: Irregular Rhythm, +S1, +S2 - GI/Abdominal Exam GI & Abdominal Exam: Normal Bowel Sounds, Soft. absent: Firm, Guarding, Tenderness - Extremities Exam Extremities exam: Negative for: tenderness, calf tenderness - Neurological Exam Neurological exam: Alert, Oriented x3 - Psychiatric Exam Psychiatric exam: Normal Affect, Normal Mood - Skin Skin Exam: Dry, Normal Color, Warm Assessment and Plan - Assessment and Plan (Free Text) Plan: 67 year old male with a history of CAD, CABG, NSTEMI, DM, CHF, BPH and noncompliance with medications, presents to the hospital with bilateral LE edema, chest pain, and palpitations. 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 Acute decompensated CHF - BNP 2080 at admission, B/L LE edema, pleural effusions, ascites - Imaging: * CXR: bibasilar atelectsis/infiltrates and small pleural effusions; mild pulmonary venous congestion; borderline cardiomegaly. * Repeat CXR (06/21/18): cardiomegaly, pulm venous congestion and b/l pleural effusions. finding compatible with CHF; pulm venous congestion appears slightly increased since prior exam; b/l pleural effusions w/inferred mild compressive atelectatic changes are believed similar to prior studies. * Venous dopplers: negative * Echo from 12/2017: EF 34.9%, normal LV and LV wall thickness; systolic function is moderately-severely impaired; flattened septum; mild MR and TR * Echo ordered: LV systoloc function mildly-mod impaired; EF 40-45%; grade II pseudonormal filling dynamics; trace-mild MR; mild pulm htn; small circumferential pericardial effusion; large left pleural effusion. - Medications: - Home medications were continued: Crestor 40mg PO HS, Aspirin 81mg PO daily - Coreg 6.25mg PO BID & 3.125mg PO BID - Lasix 40mg PO BID - Aldactone 25mg BID Pleural Effusion - S/p thoracentesis; f/u pleural fluid studies - Chest CT: b/l large pleural effusions; partial consolidation of lower lobes due to pleural effusions; pulm congestions and foci of airspace consolisaion at lower lobes, R>L; cardiomegaly; ascites in upper abdomen. CKD - Currently stable - Likely cardiorenal in etiology - TRAVIS Resolved - Can add ACEI/ARB as blood pressure tolerates Iron deficiency anemia - Iron 44L, TIBC 350, %sat 10L, ferritin 27.8, retic count 1.2 - Started IV iron for a total of 8 doses - Continue to monitor Metabolic Alkalosis - Currently stable; will continue to monitor - Continue Aldactone 25mg PO BID BPH - Continue home medications: Finasteride 5mg PO daily, Flomax 0.4mg PO daily Case discussed with Dr. Priya Lemus, PGY2 <Maynor Powers - Last Filed: 06/28/18 08:35> Objective - Vital Signs/Intake and Output Vital Signs (last 24 hours): Temp Pulse Resp BP Pulse Ox 97.2 F L 88 20 117/69 96 06/28/18 07:10 06/28/18 07:10 06/28/18 07:10 06/28/18 07:10 06/28/18 07:10 - Medications Medications: Current Medications Apixaban (Eliquis) 5 mg PO DAILY [facility] Last Admin: 06/27/18 11:06 Dose: 5 mg Aspirin (Aspirin Chewable) 81 mg PO DAILY [facility] Last Admin: 06/27/18 11:06 Dose: 81 mg Carvedilol (Coreg) 6.25 mg PO BID [facility] Last Admin: 06/27/18 17:45 Dose: 6.25 mg Carvedilol (Coreg) 3.125 mg PO BID [facility] Last Admin: 06/27/18 17:44 Dose: 3.125 mg Dextrose (Dextrose 50% Inj) 0 ml IV STAT PRN; Protocol PRN Reason: Hypoglycemia Protocol Dextrose (Glutose 15) 0 gm PO ONCE PRN; Protocol PRN Reason: Hypoglycemia Protocol Digoxin (Lanoxin) 0.25 mg PO DAILY@1800 [facility] Last Admin: 06/27/18 17:46 Dose: 0.25 mg Ferric Sodium Gluconate Complex (Ferrlecit) 125 mg IVPB DAILY [facility] Stop: 06/29/18 10:01 Last Admin: 06/27/18 11:07 Dose: 125 mg Finasteride (Proscar) 5 mg PO DAILY [facility] Last Admin: 06/27/18 11:07 Dose: 5 mg Furosemide (Lasix) 40 mg PO BID [facility] Last Admin: 06/27/18 17:45 Dose: 40 mg Glucagon (Glucagen Diagnostic Kit) 0 mg IM STAT PRN; Protocol PRN Reason: Hypoglycemia Protocol Moxifloxacin HCl (Avelox Iv 400mg/250ml Ns) 400 mg in 250 mls @ 167 mls/hr IVPB Q24H [facility]; Protocol Last Admin: 06/27/18 14:41 Dose: 167 mls/hr Insulin Human Regular (Novolin R) 0 unit SC ACHS [facility]; Protocol Last Admin: 06/27/18 17:46 Dose: Not Given Mirtazapine (Remeron) 7.5 mg PO DAILY [facility] Last Admin: 06/27/18 13:22 Dose: 7.5 mg Pantoprazole Sodium (Protonix Ec Tab) 40 mg PO DAILY [facility] Last Admin: 06/27/18 11:07 Dose: 40 mg Rosuvastatin Calcium (Crestor) 40 mg PO HS [facility] Last Admin: 06/27/18 21:20 Dose: Not Given Spironolactone (Aldactone) 25 mg PO BID [facility] Last Admin: 06/27/18 17:47 Dose: Not Given Tamsulosin HCl (Flomax) 0.4 mg PO DAILY [facility] Last Admin: 06/27/18 11:06 Dose: 0.4 mg - Labs Labs: 06/28/18 08:20 06/27/18 08:05 PT 14.3 SECONDS (9.7-12.2) H 06/20/18 17:21 INR 1.3 06/20/18 17:21 APTT 34 SECONDS (21-34) 06/20/18 17:21 Assessment and Plan (1) CHF (congestive heart failure) Status: Acute (2) Pleural effusion Status: Acute (3) Metabolic alkalosis Status: Acute (4) CKD (chronic kidney disease) Status: Chronic (5) Anemia Status: Acute Attending/Attestation - Attestation I have personally seen and examined this patient.: Yes I have fully participated in the care of the patient.: Yes I have reviewed all pertinent clinical information, including history, physical exam and plan: Yes
[2018-06-27] MEDS: Ferric Sodium Gluconat Complex 62.5 mg/5 ml Vial IVPB SCH (11:07)
[2018-06-27] MEDS: Pantoprazole 40 mg EC Tab PO SCH (11:07)
[2018-06-27] MEDS: Moxifloxacin IV 400mg/250ml NS 400 MG/250 ML BAG IVPB SCH (14:41)
--- NOTE | 2018-06-27 15:11 | CP.PCM.PN ---
Subjective - Date & Time of Evaluation Date of Evaluation: 06/27/18 Time of Evaluation: 13:00 - Subjective Subjective: atient seen and examined at bedside. Feels well today. S/P thoracentesis with 500 cc straw-colored fluid removed. Denies chest pain, cough, dyspnea. Afebrile. Physical Exam: General: Awake, alert and oriented; not in any distress Cardio: Regular rhythm and rate; +S1 +S2; no murmur Pulm: Decreased breath sounds Abd: Soft, non-distended CXR 06/26: Interval right-sided thoracentesis with decreased size right-sided effusion. Small amount of pleural fluid and some atelectasis remains. Basilar opacification consistent with left-sided effusion with atelectasis and/or consolidation. No evidence of pneumothorax. Central pulmonary vasculature appears slightly congested. Gram stain fluid 06/26: Few polymorphonuclear WBCs. No organisms seen. Fluid culture showed no growth after 24 hours. Assessment and Plan Pleural Effusion - B/l pleural effusions most likely 2/2 CHF - S/P thoracentesis - Continue diuretics and present medicine CHF Objective - Vital Signs/Intake and Output Vital Signs (last 24 hours): Temp Pulse Resp BP Pulse Ox 98.0 F 88 20 150/70 95 06/27/18 07:00 06/27/18 07:00 06/27/18 07:00 06/27/18 11:06 06/27/18 07:00 - Medications Medications: Current Medications Apixaban (Eliquis) 5 mg PO DAILY [facility] Last Admin: 06/27/18 11:06 Dose: 5 mg Aspirin (Aspirin Chewable) 81 mg PO DAILY [facility] Last Admin: 06/27/18 11:06 Dose: 81 mg Carvedilol (Coreg) 6.25 mg PO BID [facility] Last Admin: 06/27/18 11:06 Dose: 6.25 mg Carvedilol (Coreg) 3.125 mg PO BID [facility] Last Admin: 06/27/18 11:07 Dose: 3.125 mg Dextrose (Dextrose 50% Inj) 0 ml IV STAT PRN; Protocol PRN Reason: Hypoglycemia Protocol Dextrose (Glutose 15) 0 gm PO ONCE PRN; Protocol PRN Reason: Hypoglycemia Protocol Digoxin (Lanoxin) 0.25 mg PO DAILY@1800 [facility] Last Admin: 06/26/18 18:02 Dose: 0.25 mg Ferric Sodium Gluconate Complex (Ferrlecit) 125 mg IVPB DAILY [facility] Stop: 06/29/18 10:01 Last Admin: 06/27/18 11:07 Dose: 125 mg Finasteride (Proscar) 5 mg PO DAILY [facility] Last Admin: 06/27/18 11:07 Dose: 5 mg Furosemide (Lasix) 40 mg PO BID [facility] Last Admin: 06/27/18 11:06 Dose: 40 mg Glucagon (Glucagen Diagnostic Kit) 0 mg IM STAT PRN; Protocol PRN Reason: Hypoglycemia Protocol Moxifloxacin HCl (Avelox Iv 400mg/250ml Ns) 400 mg in 250 mls @ 167 mls/hr IVPB Q24H [facility]; Protocol Last Admin: 06/27/18 14:41 Dose: 167 mls/hr Insulin Human Regular (Novolin R) 0 unit SC ACHS [facility]; Protocol Last Admin: 06/27/18 13:21 Dose: 3 units Mirtazapine (Remeron) 7.5 mg PO DAILY [facility] Last Admin: 06/27/18 13:22 Dose: 7.5 mg Pantoprazole Sodium (Protonix Ec Tab) 40 mg PO DAILY [facility] Last Admin: 06/27/18 11:07 Dose: 40 mg Rosuvastatin Calcium (Crestor) 40 mg PO HS [facility] Last Admin: 06/25/18 21:44 Dose: 40 mg Spironolactone (Aldactone) 25 mg PO BID [facility] Last Admin: 06/27/18 11:06 Dose: 25 mg Tamsulosin HCl (Flomax) 0.4 mg PO DAILY [facility] Last Admin: 06/27/18 11:06 Dose: 0.4 mg - Labs Labs: 06/27/18 08:05 06/27/18 08:05 PT 14.3 SECONDS (9.7-12.2) H 06/20/18 17:21 INR 1.3 06/20/18 17:21 APTT 34 SECONDS (21-34) 06/20/18 17:21 Assessment and Plan (1) Pleural effusion Status: Acute (2) CHF (congestive heart failure) Status: Acute
[2018-06-27 17:46] VITALS: PULSE 69
[2018-06-27] MEDS: Digoxin 250 mcg (0.25 mg) Tab PO SCH (17:46)
[2018-06-28 08:03] VITALS: RESP 20; TEMP 97.2
[2018-06-28 08:27] LABS: BASO % 0.4 % (0.0-2.0); EOS # 0.2 K/uL (0.0-0.7); EOS % 3.1 % (0.0-4.0); HEMOGLOBIN 11.1 g/dL (12.0-18.0); LYMPH # 1.2 K/uL (1.0-4.3); LYMPH % 23.1 % (20.0-40.0); MEAN CELL VOLUME 86.2 fL (80.0-94.0); MEAN CORPUSCULAR HEMOGLOBIN 27.6 pg (27.0-31.0); MEAN PLATELET VOLUME 10.1 fL (7.2-11.7); MONO # 0.5 K/uL (0.0-0.8); MONO % 10.7 % (0.0-10.0); NEUT # 3.2 K/uL (1.8-7.0); NEUT % 62.7 % (50.0-75.0); NRBC % 0.1 % (0.0-2.0); RBC 4.04 Mil/uL (4.40-5.90); RED CELL DISTRIBUTION WIDTH 16.1 % (11.5-14.5); WHITE BLOOD COUNT 5.1 K/uL (4.8-10.8)
[2018-06-28] MEDS: (Novolin R) Insulin Human Regular 100 units/ml vial SC SCH ×2 (08:30→13:18)
[2018-06-28 08:57] LABS: ALB/GLOB RATIO 1.1 (1.0-2.1); ALBUMIN 3.8 g/dL (3.5-5.0); ALT/SGPT 17 U/L (21-72); AST/SGOT 25 U/L (17-59); BLOOD UREA NITROGEN 26 mg/dL (9-20); CALCIUM 9.2 mg/dl (8.6-10.4); GFR NON-AFRICAN AMERICAN 51
--- NOTE | 2018-06-28 09:37 | CP.PCM.PN ---
Subjective - Date & Time of Evaluation Date of Evaluation: 06/28/18 Time of Evaluation: 09:33 - Subjective Subjective: Progress note for Dr. Powers Patient was seen and examined at bedside in no acute distress. Patient has no complaints today and states he feels well. He denies chest pain, palpitations, dyspnea, abdominal pain, n/v, fevers, headaches, dysuria, constipation, and diarrhea. Objective - Vital Signs/Intake and Output Vital Signs (last 24 hours): Temp Pulse Resp BP Pulse Ox 97.2 F L 88 20 117/69 96 06/28/18 07:10 06/28/18 07:10 06/28/18 07:10 06/28/18 07:10 06/28/18 07:10 - Medications Medications: Current Medications Apixaban (Eliquis) 5 mg PO DAILY [facility] Last Admin: 06/27/18 11:06 Dose: 5 mg Aspirin (Aspirin Chewable) 81 mg PO DAILY [facility] Last Admin: 06/27/18 11:06 Dose: 81 mg Carvedilol (Coreg) 6.25 mg PO BID [facility] Last Admin: 06/27/18 17:45 Dose: 6.25 mg Carvedilol (Coreg) 3.125 mg PO BID [facility] Last Admin: 06/27/18 17:44 Dose: 3.125 mg Dextrose (Dextrose 50% Inj) 0 ml IV STAT PRN; Protocol PRN Reason: Hypoglycemia Protocol Dextrose (Glutose 15) 0 gm PO ONCE PRN; Protocol PRN Reason: Hypoglycemia Protocol Digoxin (Lanoxin) 0.25 mg PO DAILY@1800 [facility] Last Admin: 06/27/18 17:46 Dose: 0.25 mg Ferric Sodium Gluconate Complex (Ferrlecit) 125 mg IVPB DAILY [facility] Stop: 06/29/18 10:01 Last Admin: 06/27/18 11:07 Dose: 125 mg Finasteride (Proscar) 5 mg PO DAILY [facility] Last Admin: 06/27/18 11:07 Dose: 5 mg Furosemide (Lasix) 40 mg PO BID [facility] Last Admin: 06/27/18 17:45 Dose: 40 mg Glucagon (Glucagen Diagnostic Kit) 0 mg IM STAT PRN; Protocol PRN Reason: Hypoglycemia Protocol Moxifloxacin HCl (Avelox Iv 400mg/250ml Ns) 400 mg in 250 mls @ 167 mls/hr IVPB Q24H [facility]; Protocol Last Admin: 06/27/18 14:41 Dose: 167 mls/hr Insulin Human Regular (Novolin R) 0 unit SC ACHS [facility]; Protocol Last Admin: 06/27/18 17:46 Dose: Not Given Mirtazapine (Remeron) 7.5 mg PO DAILY [facility] Last Admin: 06/27/18 13:22 Dose: 7.5 mg Pantoprazole Sodium (Protonix Ec Tab) 40 mg PO DAILY [facility] Last Admin: 06/27/18 11:07 Dose: 40 mg Rosuvastatin Calcium (Crestor) 40 mg PO HS [facility] Last Admin: 06/27/18 21:20 Dose: Not Given Spironolactone (Aldactone) 25 mg PO BID [facility] Last Admin: 06/27/18 17:47 Dose: Not Given Tamsulosin HCl (Flomax) 0.4 mg PO DAILY [facility] Last Admin: 06/27/18 11:06 Dose: 0.4 mg - Labs Labs: 06/28/18 08:20 06/28/18 08:20 PT 14.3 SECONDS (9.7-12.2) H 06/20/18 17:21 INR 1.3 06/20/18 17:21 APTT 34 SECONDS (21-34) 06/20/18 17:21 - Additional Findings Additional findings: - Constitutional Appears: No Acute Distress - Head Exam Head Exam: ATRAUMATIC, NORMAL INSPECTION - Eye Exam Eye Exam: EOMI, Normal appearance - ENT Exam ENT Exam: Mucous Membranes Moist - Respiratory Exam Respiratory Exam: right sided dressing s/p thoracentesis dry, clean, intact; air movement diminished in Left lower lung, NORMAL BREATHING PATTERN. absent: Rhonchi, Wheezes - Cardiovascular Exam Cardiovascular Exam: Irregular Rhythm, +S1, +S2 - GI/Abdominal Exam GI & Abdominal Exam: Normal Bowel Sounds, Soft. absent: Firm, Guarding, Tenderness - Extremities Exam Extremities exam: Negative for: edema, tenderness, calf tenderness - Neurological Exam Neurological exam: Alert, Oriented x3 - Psychiatric Exam Psychiatric exam: Normal Affect, Normal Mood - Skin Skin Exam: Dry, Normal Color, Warm Assessment and Plan - Assessment and Plan (Free Text) Plan: 67 year old male with a history of CAD, CABG, NSTEMI, DM, CHF, BPH and noncompliance with medications, presents to the hospital with bilateral LE edema, chest pain, and palpitations. Image Editor consulted for TRAVIS on CKD. Acute decompensated CHF - BNP 2080 at admission, B/L LE edema, pleural effusions, ascites - Imaging: * CXR: bibasilar atelectsis/infiltrates and small pleural effusions; mild pulmonary venous congestion; borderline cardiomegaly. * Repeat CXR (06/21/18): cardiomegaly, pulm venous congestion and b/l pleural effusions. finding compatible with CHF; pulm venous congestion appears slightly increased since prior exam; b/l pleural effusions w/inferred mild compressive atelectatic changes are believed similar to prior studies. * Venous dopplers: negative * Echo from 12/2017: EF 34.9%, normal LV and LV wall thickness; systolic function is moderately-severely impaired; flattened septum; mild MR and TR * Echo ordered: LV systoloc function mildly-mod impaired; EF 40-45%; grade II pseudonormal filling dynamics; trace-mild MR; mild pulm htn; small circumferential pericardial effusion; large left pleural effusion. - Medications: - Home medications were continued: Crestor 40mg PO HS, Aspirin 81mg PO daily - Coreg 6.25mg PO BID & 3.125mg PO BID - Lasix 40mg PO BID - Aldactone 25mg BID Pleural Effusion - S/p thoracentesis; f/u pleural fluid studies - Chest CT: b/l large pleural effusions; partial consolidation of lower lobes due to pleural effusions; pulm congestions and foci of airspace consolisaion at lower lobes, R>L; cardiomegaly; ascites in upper abdomen. CKD - Currently stable - Likely cardiorenal in etiology - TRAVIS Resolved - Can add ACEI/ARB as blood pressure tolerates Iron deficiency anemia - Iron 44L, TIBC 350, %sat 10L, ferritin 27.8, retic count 1.2 - Continue IV iron for a total of 8 doses - Continue to monitor Metabolic Alkalosis - Currently stable; will continue to monitor - Continue Aldactone 25mg PO BID BPH - Continue home medications: Finasteride 5mg PO daily, Flomax 0.4mg PO daily Patient is planned for discharge per primary team. Patient should continue Coreg 6.25mg PO BID, Lasix 40mg PO daily, and should start Lisinopril 5mg PO daily. Patient must follow up in the clinic. Case discussed with Dr. Priya Lemus, PGY2
[2018-06-28] MEDS: Ferric Sodium Gluconat Complex 62.5 mg/5 ml Vial IVPB SCH (10:53)
[2018-06-28] MEDS: Pantoprazole 40 mg EC Tab PO SCH (10:54)
[2018-06-28] MEDS: Moxifloxacin IV 400mg/250ml NS 400 MG/250 ML BAG IVPB SCH (13:18)
--- NOTE | 2018-06-28 14:09 | CP.PCM.DIS ---
<Thanh Escobar - Last Filed: 06/28/18 19:06> Provider - Provider Date of Admission: 06/20/18 16:05 Attending physician: Ronal Thomason DO Consults: 06/20/18 18:00 Social Work Referral Routine Comment: lives alone Physician Instructions: lives alone Reason For Exam: lives alone, cannot afford to buy medications 06/20/18 18:36 Cardiology Consult Routine Comment: Consulting Provider: Antoinette Llanes Consulting Physician: Antoinette Llanes Reason for Consult: A-flutter 06/20/18 18:51 Nephrology Consult Routine Comment: Consulting Provider: Maynor Powers Consulting Physician: Maynor Powers Reason for Consult: arf on ckd 06/25/18 10:31 Physician Consult Routine Comment: Consulting Provider: Neal Neves Consulting Physician: Neal Neves Reason for Consult: bilateral pleural effusion, LL consolidation 06/25/18 10:32 Pulmonology Consult Routine Comment: Consulting Provider: El Ritter Consulting Physician: El Ritter Reason for Consult: bilateral pleural effusion, LL consolidation Time Spent in preparation of Discharge (in minutes): 180 Diagnosis - Discharge Diagnosis (1) CHF (congestive heart failure) Status: Acute (2) Coronary artery disease Status: Acute (3) Atrial flutter Status: Acute (4) Benign prostate hyperplasia Status: Acute (5) CKD (chronic kidney disease) Status: Chronic (6) Diabetes mellitus, type 2 Status: Chronic (7) Depression Status: Acute Hospital Course - Lab Results Lab Results: Micro Results 06/26/18 14:11 Pleural Fluid Gram Stain - Final 06/26/18 14:11 Pleural Fluid Body Fluid Culture - Preliminary NO GROWTH AFTER 2 DAYS 06/23/18 22:24 Naris MRSA Culture - Final MRSA NOT DETECTED 06/20/18 20:48 Naris MRSA Culture (Admit) - Final MRSA NOT DETECTED Most Recent Lab Values WBC 5.1 K/uL (4.8-10.8) 06/28/18 08:20 RBC 4.04 Mil/uL (4.40-5.90) L 06/28/18 08:20 Hgb 11.1 g/dL (12.0-18.0) L 06/28/18 08:20 Hct 34.8 % (35.0-51.0) L 06/28/18 08:20 MCV 86.2 fL (80.0-94.0) 06/28/18 08:20 MCH 27.6 pg (27.0-31.0) 06/28/18 08:20 MCHC 32.0 g/dL (33.0-37.0) L 06/28/18 08:20 RDW 16.1 % (11.5-14.5) H 06/28/18 08:20 Plt Count 142 K/uL (130-400) 06/28/18 08:20 MPV 10.1 fL (7.2-11.7) 06/28/18 08:20 Neut % (Auto) 62.7 % (50.0-75.0) 06/28/18 08:20 Lymph % (Auto) 23.1 % (20.0-40.0) 06/28/18 08:20 [place] % (Auto) 10.7 % (0.0-10.0) H 06/28/18 08:20 Eos % (Auto) 3.1 % (0.0-4.0) 06/28/18 08:20 Baso % (Auto) 0.4 % (0.0-2.0) 06/28/18 08:20 Neut # (Auto) 3.2 K/uL (1.8-7.0) 06/28/18 08:20 Lymph # (Auto) 1.2 K/uL (1.0-4.3) 06/28/18 08:20 [place] # (Auto) 0.5 K/uL (0.0-0.8) 06/28/18 08:20 Eos # (Auto) 0.2 K/uL (0.0-0.7) 06/28/18 08:20 Baso # (Auto) 0.0 K/uL (0.0-0.2) 06/28/18 08:20 Retic Count 1.2 % (0.5-1.5) 06/21/18 14:12 PT 14.3 SECONDS (9.7-12.2) H 06/20/18 17:21 INR 1.3 06/20/18 17:21 APTT 34 SECONDS (21-34) 06/20/18 17:21 Puncture Site Lb 06/21/18 14:25 pCO2 45 mm/Hg (35-45) 06/21/18 14:25 pO2 63 mm/Hg (80-100) L 06/21/18 14:25 HCO3 28.1 mmol/L (21-28) H 06/21/18 14:25 ABG pH 7.42 (7.35-7.45) 06/21/18 14:25 ABG Total CO2 30.6 mmol/L (22-28) H 06/21/18 14:25 ABG O2 Saturation 94.2 % (95-98) L 06/21/18 14:25 ABG Base Excess 4.2 mmol/L (-2.0-3.0) H 06/21/18 14:25 ABG Hemoglobin 9.6 g/dL (11.7-17.4) L 06/21/18 14:25 ABG Carboxyhemoglobin 1.6 % (0.5-1.5) H 06/21/18 14:25 POC ABG HHb (Measured) 5.7 % (0.0-5.0) H 06/21/18 14:25 ABG Methemoglobin 0.8 % (0.0-3.0) 06/21/18 14:25 Kade Test Na 06/21/18 14:25 Hgb O2 Saturation 91.8 % (95.0-98.0) L 06/21/18 14:25 Liter Flow 3.0 06/21/18 14:25 Sodium 140 mmol/L (132-148) 06/28/18 08:20 Potassium 3.7 mmol/L (3.6-5.2) 06/28/18 08:20 Chloride 97 mmol/L (98-107) L 06/28/18 08:20 Carbon Dioxide 36 mmol/L (22-30) H 06/28/18 08:20 Anion Gap 11 (10-20) 06/28/18 08:20 BUN 26 mg/dL (9-20) H 06/28/18 08:20 Creatinine 1.4 mg/dL (0.8-1.5) 06/28/18 08:20 Est GFR ( Amer) > 60 06/28/18 08:20 Est GFR (Non-Af Amer) 51 06/28/18 08:20 POC Glucose (mg/dL) 128 mg/dL (65-110) H 06/28/18 06:30 Random Glucose 110 mg/dL (75-110) 06/28/18 08:20 Hemoglobin A1c 8.5 % (4.2-6.5) H 06/25/18 09:09 Calcium 9.2 mg/dl (8.6-10.4) 06/28/18 08:20 Phosphorus 2.8 mg/dL (2.5-4.5) 06/25/18 07:26 Magnesium 1.7 mg/dL (1.6-2.3) 06/25/18 07:26 Iron 44 ug/dL (49-181) L 06/21/18 14:12 TIBC 350 ug/dL (250-450) 06/21/18 14:12 % Saturation 10 (20-55) L 06/21/18 14:12 Ferritin 27.8 ng/mL 06/21/18 14:12 Total Bilirubin 1.1 mg/dL (0.2-1.3) 06/28/18 08:20 AST 25 U/L (17-59) 06/28/18 08:20 ALT 17 U/L (21-72) L D 06/28/18 08:20 Alkaline Phosphatase 290 U/L (38-126) H 06/28/18 08:20 Total Creatine Kinase 39 U/L (55-170) L 06/21/18 06:19 CK-MB (Mass) 0.53 ng/mL (0.0-3.38) 06/21/18 06:19 Troponin I 0.0150 ng/mL (0.00-0.120) 06/21/18 06:19 NT-Pro-B Natriuret Pep 3080 pg/mL (0-900) H 06/20/18 15:30 Total Protein 7.1 g/dL (6.3-8.3) 06/28/18 08:20 Albumin 3.8 g/dL (3.5-5.0) 06/28/18 08:20 Globulin 3.3 gm/dL (2.2-3.9) 06/28/18 08:20 Albumin/Globulin Ratio 1.1 (1.0-2.1) 06/28/18 08:20 Triglycerides 60 mg/dL (0-149) 06/21/18 06:19 Cholesterol 107 mg/dL (0-199) 06/21/18 06:19 LDL Cholesterol Direct 70 mg/dL (0-129) 06/21/18 06:19 HDL Cholesterol 31 mg/dL (30-70) 06/21/18 06:19 Urine Color Yellow (YELLOW) 06/21/18 04:33 Urine Clarity Clear (Clear) 06/21/18 04:33 Urine pH 5.0 (5.0-8.0) 06/21/18 04:33 Ur Specific [place] 1.008 (1.003-1.030) 06/21/18 04:33 Urine Protein Negative mg/dL (NEGATIVE) 06/21/18 04:33 Urine Glucose (UA) Normal mg/dL (Normal) 06/21/18 04:33 Urine Ketones Negative mg/dL (NEGATIVE) 06/21/18 04:33 Urine Blood Negative (NEGATIVE) 06/21/18 04:33 Urine Nitrate Negative (NEGATIVE) 06/21/18 04:33 Urine Bilirubin Negative (NEGATIVE) 06/21/18 04:33 Urine Urobilinogen Normal mg/dL (0.2-1.0) 06/21/18 04:33 Ur Leukocyte Esterase Neg Julia/uL (Negative) 06/21/18 04:33 Urine WBC (Auto) 1 /hpf (0-5) 06/21/18 04:33 Hyaline Casts 0-2 /lpf (0-2) 06/21/18 04:33 U Random Total Protein 270 mg/g creat (22-128) H 06/20/18 08:10 Urine Creatinine 37 mg/dL (20-320) 06/20/18 08:10 Urine Microalbumin 2.6 mg/dL 06/20/18 08:10 Microalb/Creat Ratio 69 (<30) H 06/20/18 08:10 Fluid Source Pleural/thoracentesi 06/26/18 14:11 Fluid Appearance Sl cloudy (CLEAR) 06/26/18 14:11 Fluid WBC 301.0 /mm3 (0.0-300.0) H 06/26/18 14:11 Fluid RBC 1797.0 /mm3 (0.0-0.0) H 06/26/18 14:11 Fluid Tot Cell Count 100 (0-0) H 06/26/18 14:11 Fluid Neutrophils 6.0 % (0-0) H 06/26/18 14:11 Fluid Lymphocytes 92.0 % (0-0) H 06/26/18 14:11 Fld Monocyte/Macrophag 2 % (0-0) H 06/26/18 14:11 Fluid Comment 06/26/18 14:11 - Hospital Course Hospital Course: On admission: This is a 67 y o male with PMhx CAD with NSTEMI (11/25/17 at [facility]), s/p CABG at [place] (October 2017), DM2, CHF, non-compliance with outpatient medications who presented to the ED c/o chest pain and palpitations occurring since last night. Described pain as throbbing in quality localized to L chest, non-radiating. Pt also reported b/l LE edema, L > R. Pt reports not taking home medications for at least 5 weeks, states he has not followed up with a PMD and has been unable to afford his medications due to having no insurance. Pt denies sob, abd pain, n/v/d/c, urinary complaints, fever, chills, night sweats. Admits to dyspnea on exertion when he walks several steps in his house, denies intermittent claudication in LEs b/l, but admits to pain in the bottom of his feet b/l with ambulating and edema of feet b/l, states fluid swelling improves when he elevates his legs. On hospitalization: Patient Admitted to ICU for A-flutter with rapid HR, and [id number] systolic CHF. CXR on admission: bibasilar atelectasis/infiltrates and small pleural effusions, mild pulm venous congestion. PAtient placed on lasix, coreg, digoxin, aldactone and eliquis, patient continued taking home med ASA , statin. Patient placed on telemetry. echo 06/22 shows left ventricle systolic function mildly to moderately impaired, ef 40-45%, grade II pseudonormal filling (see full report). Cardiology Dr Llanes consulted. Patient noted to be in ARF on CKD, placed on gentle IVF hydration. Nephro Dr Powers consulted. CT Chest (06/22) showed bilateral pleural effusion. partial consolidation of the lower lungs. IR Dr Neves consulted, patient underwent thoracentesis 06/26, 550 cc cloudy fluoid removed, Fluid CX negative for 3 days. patient given avelox 400mg IVP. for hx of BPH, patient placed on home meds proscr and flomax. Patient amaryl held, placed for ISS. For hx of depression, patient placed on home remeron. DVT ppx with eliquis and GI ppx with protonix. On discharge Patient given the following instruction upon discharge: Patient is stable to discharge as per Dr Thomason. Patient is to take the following new medications: - eliquis 5mg one tablet per mouth daily, dispense #30. This medication can be very expensive, we are giving you a voucher so you can get 30 days supply of medications for free. Please use this voucher when buying the medication. - Coreg 6.25mg one tablet per mouth twice a day, dispense #60. - Lisinopril 5mg one tablet per mouth once a day, dispense #30. - Digoxin 0.25mg one tablet per mouth once a day, dispense #30 Patient to continue taking home meds, we are giving you prescriptions for 30 days : - Aspirin 81 mg per mouth once a day - Lipitor 80 mg per mouth once a day at nighttime - Lasix 40 mg per mouth once a day - Mirtazapine 7.5 mg per mouth once a day - Proscar 5 mg one tablet once a day - flomax 0.4 mg one tablet once a day - Amaryl 1mg one tablet once a day it is very important that patient follows up with our [facility] located in the [facility] in 7-10 days after discharge. Please make an appointment as soon as you get discharged, we are providing you with the phone number. if any of your original symptoms recur or worsen, please return to the ER as soon as possible This is a short summary of patient's EMR. For more information, please refer to patient's EMR - Date & Time of H&P Date of H&P: 06/28/18 Time of H&P: 19:59 Discharge Exam - Head Exam Head Exam: ATRAUMATIC, NORMOCEPHALIC - Eye Exam Eye Exam: EOMI, Normal appearance Pupil Exam: NORMAL ACCOMODATION - ENT Exam ENT Exam: Normal Exam - Neck Exam Neck exam: Normal Inspection - Respiratory Exam Respiratory Exam: Clear to PA & Lateral, NORMAL BREATHING PATTERN, UNREMARKABLE - Cardiovascular Exam Cardiovascular Exam: REGULAR RHYTHM, +S1, +S2 - GI/Abdominal Exam GI & Abdominal Exam: Normal Bowel Sounds, Soft, Unremarkable - Extremities Exam Extremities exam: full ROM - Back Exam Back exam: FULL ROM - Neurological Exam Neurological exam: Alert, Normal Gait, Oriented x3 - Psychiatric Exam Psychiatric exam: Normal Affect, Normal Mood - Skin Skin Exam: Dry, Normal Color, Warm Discharge Plan - Discharge Medications Prescriptions: Apixaban [Eliquis] 5 mg PO DAILY 30 Days #30 tab Aspirin [Aspirin Chewable] 81 mg PO DAILY #30 chew Atorvastatin [Lipitor] 80 mg PO DAILY #30 tab Carvedilol [Coreg] 6.25 mg PO BID 30 Days #60 tab Digoxin [Lanoxin] 0.25 mg PO DAILY@1800 30 Days #30 tab Finasteride [Proscar] 5 mg PO DAILY #30 tab Furosemide [Lasix] 40 mg PO DAILY 30 Days #30 tab Glimepiride [Amaryl] 1 mg PO DAILY 30 Days #30 tab Lisinopril [Zestril] 5 mg PO DAILY 30 Days #30 tablet Mirtazapine [Remeron] 7.5 mg PO DAILY #30 tab Tamsulosin [Flomax] 0.4 mg PO DAILY #30 cap - Follow Up Plan Condition: STABLE Disposition: HOME/ ROUTINE Instructions: Heart Healthy Diet, Heart Failure, Adult (DC), Pleural Effusion (DC), Apixaban, Atorvastatin, Carvedilol, Digoxin, Mirtazapine, Thoracentesis (DC), Atrial Flutter (DC) Additional Instructions: Patient is stable to discharge as per Dr Thomason Patient is to take the following new medications: - eliquis 5mg one tablet per mouth daily, dispense #30. This medication can be very expensive, we are giving you a voucher so you can get 30 days supply of medications for free. Please use this voucher when buying the medication. - Coreg 6.25mg one tablet per mouth twice a day, dispense #60. - Lisinopril 5mg one tablet per mouth once a day, dispense #30. - Digoxin 0.25mg one tablet per mouth once a day, dispense #30 Patient to continue taking home meds, we are giving you prescriptions for 30 days : - Aspirin 81 mg per mouth once a day - Lipitor 80 mg per mouth once a day at nighttime - Lasix 40 mg per mouth once a day - Mirtazapine 7.5 mg per mouth once a day - Proscar 5 mg one tablet once a day - flomax 0.4 mg one tablet once a day - Amaryl 1mg one tablet once a day it is very important that patient follows up with our [facility]10 days after discharge. Please make an appointment as soon as you get discharged, we are providing you with the phone number. if any of your original symptoms recur or worsen, please return to the ER as soon as possible El paciente es estable para el felicity segn Dr Thomason El paciente debe ilsa los siguientes medicamentos nuevos: - Eliquis 5 mg primitivo tableta por boca por da, dispensar # 30. Liane medicamento puede ser muy costoso, le estamos dando un cupn para que pueda obtener un suministro de medicamentos de 30 cuellar gratis. Por favor use liane cupn al comprar el medicamento. - Coreg 6.25 mg primitivo tableta por boca dos veces al da, dispensar # 60. - Lisinopril 5 mg primitivo tableta por boca primitivo vez al da, dispensar # 30. - Digoxina 0.25 mg primitivo tableta por boca primitivo vez al da, dispensar # 30 Paciente para continuar tomando medicamentos en casa, le daremos recetas por 30 cuellar: - Aspirina 81 mg por boca primitivo vez al da. - Lipitor 80 mg por boca primitivo vez al da por la noche. - Lasix 40 mg por boca primitivo vez al da. - Mirtazapina 7.5 mg por boca primitivo vez al da. - Proscar 5 mg primitivo tableta primitivo vez al da. - Flomax 0.4 mg primitivo tableta primitivo vez al da. - Amaryl 1 mg primitivo tableta primitivo vez al da. es muy importante que el paciente khoa un seguimiento con nuestro centro de daren [facility] en 7-10 cuellar despus del felicity. Por favor khoa primitivo mavis garcia pronto rina le den el felicity, le estamos proporcionando el nmero de telfono. Si alguno de anish sntomas originales reaparece o empeora, regrese a la taylor de emergencia garcia pronto rina sea posible. Referrals: [facility] [Outside] <Ronal Thomason - Last Filed: 06/29/18 07:22> Provider - Provider Date of Admission: 06/20/18 16:05 Attending physician: Ronal Thomason DO Consults: 06/20/18 18:00 Social Work Referral Routine Comment: lives alone Physician Instructions: lives alone Reason For Exam: lives alone, cannot afford to buy medications 06/20/18 18:36 Cardiology Consult Routine Comment: Consulting Provider: Antoinette Llanes Consulting Physician: Antoinette Llanes Reason for Consult: A-flutter 06/20/18 18:51 Nephrology Consult Routine Comment: Consulting Provider: Maynor Powers Consulting Physician: Maynor Powers Reason for Consult: arf on ckd 06/25/18 10:31 Physician Consult Routine Comment: Consulting Provider: Neal Neves Consulting Physician: Neal Neves Reason for Consult: bilateral pleural effusion, LL consolidation 06/25/18 10:32 Pulmonology Consult Routine Comment: Consulting Provider: El Ritter Consulting Physician: El Ritter Reason for Consult: bilateral pleural effusion, LL consolidation Hospital Course - Lab Results Lab Results: Micro Results 06/26/18 14:11 Pleural Fluid Gram Stain - Final 06/26/18 14:11 Pleural Fluid Body Fluid Culture - Preliminary NO GROWTH AFTER 2 DAYS 06/23/18 22:24 Naris MRSA Culture - Final MRSA NOT DETECTED 06/20/18 20:48 Naris MRSA Culture (Admit) - Final MRSA NOT DETECTED Most Recent Lab Values WBC 5.1 K/uL (4.8-10.8) 06/28/18 08:20 RBC 4.04 Mil/uL (4.40-5.90) L 06/28/18 08:20 Hgb 11.1 g/dL (12.0-18.0) L 06/28/18 08:20 Hct 34.8 % (35.0-51.0) L 06/28/18 08:20 MCV 86.2 fL (80.0-94.0) 06/28/18 08:20 MCH 27.6 pg (27.0-31.0) 06/28/18 08:20 MCHC 32.0 g/dL (33.0-37.0) L 06/28/18 08:20 RDW 16.1 % (11.5-14.5) H 06/28/18 08:20 Plt Count 142 K/uL (130-400) 06/28/18 08:20 MPV 10.1 fL (7.2-11.7) 06/28/18 08:20 Neut % (Auto) 62.7 % (50.0-75.0) 06/28/18 08:20 Lymph % (Auto) 23.1 % (20.0-40.0) 06/28/18 08:20 [place] % (Auto) 10.7 % (0.0-10.0) H 06/28/18 08:20 Eos % (Auto) 3.1 % (0.0-4.0) 06/28/18 08:20 Baso % (Auto) 0.4 % (0.0-2.0) 06/28/18 08:20 Neut # (Auto) 3.2 K/uL (1.8-7.0) 06/28/18 08:20 Lymph # (Auto) 1.2 K/uL (1.0-4.3) 06/28/18 08:20 [place] # (Auto) 0.5 K/uL (0.0-0.8) 06/28/18 08:20 Eos # (Auto) 0.2 K/uL (0.0-0.7) 06/28/18 08:20 Baso # (Auto) 0.0 K/uL (0.0-0.2) 06/28/18 08:20 Retic Count 1.2 % (0.5-1.5) 06/21/18 14:12 PT 14.3 SECONDS (9.7-12.2) H 06/20/18 17:21 INR 1.3 06/20/18 17:21 APTT 34 SECONDS (21-34) 06/20/18 17:21 Puncture Site Lb 06/21/18 14:25 pCO2 45 mm/Hg (35-45) 06/21/18 14:25 pO2 63 mm/Hg (80-100) L 06/21/18 14:25 HCO3 28.1 mmol/L (21-28) H 06/21/18 14:25 ABG pH 7.42 (7.35-7.45) 06/21/18 14:25 ABG Total CO2 30.6 mmol/L (22-28) H 06/21/18 14:25 ABG O2 Saturation 94.2 % (95-98) L 06/21/18 14:25 ABG Base Excess 4.2 mmol/L (-2.0-3.0) H 06/21/18 14:25 ABG Hemoglobin 9.6 g/dL (11.7-17.4) L 06/21/18 14:25 ABG Carboxyhemoglobin 1.6 % (0.5-1.5) H 06/21/18 14:25 POC ABG HHb (Measured) 5.7 % (0.0-5.0) H 06/21/18 14:25 ABG Methemoglobin 0.8 % (0.0-3.0) 06/21/18 14:25 Kade Test Na 06/21/18 14:25 Hgb O2 Saturation 91.8 % (95.0-98.0) L 06/21/18 14:25 Liter Flow 3.0 06/21/18 14:25 Sodium 140 mmol/L (132-148) 06/28/18 08:20 Potassium 3.7 mmol/L (3.6-5.2) 06/28/18 08:20 Chloride 97 mmol/L (98-107) L 06/28/18 08:20 Carbon Dioxide 36 mmol/L (22-30) H 06/28/18 08:20 Anion Gap 11 (10-20) 06/28/18 08:20 BUN 26 mg/dL (9-20) H 06/28/18 08:20 Creatinine 1.4 mg/dL (0.8-1.5) 06/28/18 08:20 Est GFR ( Amer) > 60 06/28/18 08:20 Est GFR (Non-Af Amer) 51 06/28/18 08:20 POC Glucose (mg/dL) 128 mg/dL (65-110) H 06/28/18 06:30 Random Glucose 110 mg/dL (75-110) 06/28/18 08:20 Hemoglobin A1c 8.5 % (4.2-6.5) H 06/25/18 09:09 Calcium 9.2 mg/dl (8.6-10.4) 06/28/18 08:20 Phosphorus 2.8 mg/dL (2.5-4.5) 06/25/18 07:26 Magnesium 1.7 mg/dL (1.6-2.3) 06/25/18 07:26 Iron 44 ug/dL (49-181) L 06/21/18 14:12 TIBC 350 ug/dL (250-450) 06/21/18 14:12 % Saturation 10 (20-55) L 06/21/18 14:12 Ferritin 27.8 ng/mL 06/21/18 14:12 Total Bilirubin 1.1 mg/dL (0.2-1.3) 06/28/18 08:20 AST 25 U/L (17-59) 06/28/18 08:20 ALT 17 U/L (21-72) L D 06/28/18 08:20 Alkaline Phosphatase 290 U/L (38-126) H 06/28/18 08:20 Total Creatine Kinase 39 U/L (55-170) L 06/21/18 06:19 CK-MB (Mass) 0.53 ng/mL (0.0-3.38) 06/21/18 06:19 Troponin I 0.0150 ng/mL (0.00-0.120) 06/21/18 06:19 NT-Pro-B Natriuret Pep 3080 pg/mL (0-900) H 06/20/18 15:30 Total Protein 7.1 g/dL (6.3-8.3) 06/28/18 08:20 Albumin 3.8 g/dL (3.5-5.0) 06/28/18 08:20 Globulin 3.3 gm/dL (2.2-3.9) 06/28/18 08:20 Albumin/Globulin Ratio 1.1 (1.0-2.1) 06/28/18 08:20 Triglycerides 60 mg/dL (0-149) 06/21/18 06:19 Cholesterol 107 mg/dL (0-199) 06/21/18 06:19 LDL Cholesterol Direct 70 mg/dL (0-129) 06/21/18 06:19 HDL Cholesterol 31 mg/dL (30-70) 06/21/18 06:19 Urine Color Yellow (YELLOW) 06/21/18 04:33 Urine Clarity Clear (Clear) 06/21/18 04:33 Urine pH 5.0 (5.0-8.0) 06/21/18 04:33 Ur Specific [place] 1.008 (1.003-1.030) 06/21/18 04:33 Urine Protein Negative mg/dL (NEGATIVE) 06/21/18 04:33 Urine Glucose (UA) Normal mg/dL (Normal) 06/21/18 04:33 Urine Ketones Negative mg/dL (NEGATIVE) 06/21/18 04:33 Urine Blood Negative (NEGATIVE) 06/21/18 04:33 Urine Nitrate Negative (NEGATIVE) 06/21/18 04:33 Urine Bilirubin Negative (NEGATIVE) 06/21/18 04:33 Urine Urobilinogen Normal mg/dL (0.2-1.0) 06/21/18 04:33 Ur Leukocyte Esterase Neg Julia/uL (Negative) 06/21/18 04:33 Urine WBC (Auto) 1 /hpf (0-5) 06/21/18 04:33 Hyaline Casts 0-2 /lpf (0-2) 06/21/18 04:33 U Random Total Protein 270 mg/g creat (22-128) H 06/20/18 08:10 Urine Creatinine 37 mg/dL (20-320) 06/20/18 08:10 Urine Microalbumin 2.6 mg/dL 06/20/18 08:10 Microalb/Creat Ratio 69 (<30) H 06/20/18 08:10 Fluid Source Pleural/thoracentesi 06/26/18 14:11 Fluid Appearance Sl cloudy (CLEAR) 06/26/18 14:11 Fluid WBC 301.0 /mm3 (0.0-300.0) H 06/26/18 14:11 Fluid RBC 1797.0 /mm3 (0.0-0.0) H 06/26/18 14:11 Fluid Tot Cell Count 100 (0-0) H 06/26/18 14:11 Fluid Neutrophils 6.0 % (0-0) H 06/26/18 14:11 Fluid Lymphocytes 92.0 % (0-0) H 06/26/18 14:11 Fld Monocyte/Macrophag 2 % (0-0) H 06/26/18 14:11 Fluid Comment 06/26/18 14:11 Pleural Total Protein 3.0 g/dL 06/26/18 14:11 Pleural Glucose 153 mg/dL 06/26/18 14:11 Attending/Attestation - Attestation I have personally seen and examined this patient.: Yes I have fully participated in the care of the patient.: Yes I have reviewed all pertinent clinical information, including history, physical exam and plan: Yes Notes (Text): 06/29/18 07:18 Medical attending: Patient was seen and examined by me. Agree with the above note by the resident The patient was not in any acute distress when we came and saw him. He was readily able to ambulate in the hallway on his own The patient will need to have follow up. Also we discussed his medication with him and we explained that the anticoagulation medication he would need a voucher that we would give him and that the other medication especially for his CHF [email or web address] $4 list for 30 day supplies We spent a good amount of time explaining the pleural effusion and thoracentesis to him as well as the importance of taking the CHF medications Ronal Thomason
[2018-06-28 17:04] VITALS: BP 99/59; PULSE 87; O2SAT 98
--- NOTE | 2018-06-28 17:57 | CP.PCM.PN ---
Subjective - Date & Time of Evaluation Date of Evaluation: 06/28/18 Time of Evaluation: 11:00 - Subjective Subjective: Patient seen and examined at bedside. Patient has no complaints today and feels well. S/P thoracentesis with 500 cc straw-colored fluid removed. Afebrile. Physical Exam: General: Awake, alert and oriented; not in any distress Cardio: Regular rhythm and rate; +S1 +S2; no murmur Pulm: Decreased breath sounds Abd: Soft, non-distended Assessment and Plan Pleural Effusion - B/l pleural effusions most likely 2/2 CHF - S/P thoracentesis - Continue diuretics and present medicine - Cardiology workup CHF Objective - Vital Signs/Intake and Output Vital Signs (last 24 hours): Temp Pulse Resp BP Pulse Ox 97.2 F L 87 20 99/59 L 98 06/28/18 15:03 06/28/18 15:03 06/28/18 15:03 06/28/18 15:03 06/28/18 15:03 Intake and Output: 06/28/18 06/28/18 06:59 18:59 Intake Total 700 Balance 700 - Labs Labs: 06/28/18 08:20 06/28/18 08:20 PT 14.3 SECONDS (9.7-12.2) H 06/20/18 17:21 INR 1.3 06/20/18 17:21 APTT 34 SECONDS (21-34) 06/20/18 17:21 Assessment and Plan (1) Pleural effusion Status: Acute (2) CHF (congestive heart failure) Status: Acute
== END 2018-06-28 17:13 | disposition home or self-care (01) | DRG 194 ==
LOC: C.ER 14:34 → C.9E 16:05 → C.9I 16:46 → C.6T 06-23 21:13
PROVIDERS: ADMIT Hospitalist; ATTEND Hospitalist
PROC: 0W993ZZ Drainage of Right Pleural Cavity, Percutaneous Approach (ICD-10-PCS; principal; 2018-06-26)
PROC: BB4BZZZ Ultrasonography of Pleura (ICD-10-PCS; 2018-06-26)
DX: I13.0 Hypertensive heart and chronic kidney disease with heart failure and stage 1 through stage 4 chronic kidney disease, or unspecified chronic kidney disease (principal); I50.23 Acute on chronic systolic (congestive) heart failure; I48.92 Unspecified atrial flutter; J91.8 Pleural effusion in other conditions classified elsewhere; E87.3 Alkalosis; I48.91 Unspecified atrial fibrillation; E11.22 Type 2 diabetes mellitus with diabetic chronic kidney disease; J98.11 Atelectasis; N18.2 Chronic kidney disease, stage 2 (mild); I25.5 Ischemic cardiomyopathy; I25.10 Atherosclerotic heart disease of native coronary artery without angina pectoris; D50.9 Iron deficiency anemia, unspecified; N40.0 Benign prostatic hyperplasia without lower urinary tract symptoms; F32.9 Major depressive disorder, single episode, unspecified; K74.60 Unspecified cirrhosis of liver; Z95.1 Presence of aortocoronary bypass graft; Z91.14 Patient's other noncompliance with medication regimen; Z87.891 Personal history of nicotine dependence; I25.2 Old myocardial infarction; Z59.0 Homelessness; Z79.82 Long term (current) use of aspirin; Z79.899 Other long term (current) drug therapy